=== PATIENT | female | born 1935 | race Caucasian/White ===

== ENCOUNTER → 2016-03-21 | Outpatient (CLI) | payer OTHER, BC ==
[~2016-03-21] MED LIST: ASCA500 PO; BNT20 PO; CALC600T37 PO; CETI10TA84 PO; CHOL100027 PO; EZET10TA63 PO; GABA1CAP PO; HYDR-5688 PO; LEVO1TAB35 PO; LOSA50TA6 PO; MISCCAP80 PO; MULT-506 PO; ONDA4TAB10 SL; POLY335019 PO; PRT40 PO; SENN-63 PO; ZNT150 PO
== END | disposition home or self-care (01) ==
LOC: C.LABSPEC 17:36
PROVIDERS: ATTEND Nurse Practitioner
DX: R39.9 Unspecified symptoms and signs involving the genitourinary system (principal)

== ENCOUNTER → 2016-05-09 | Outpatient (CLI) | payer OTHER, BC ==
[2016-05-09 12:35] LABS: BASO % 1.2 %; COMPLETE YES; EOS % 5.7 %; HEMATOCRIT 41.4 % (37-47); IG% 1.7 %; LYMPH ABS # 2.93 K/uL (1.2-3.4); MEAN CELL VOLUME 95.6 fL (80-100); MEAN CORPUSCULAR HEMOGLOBIN 32.6 pg (25-34); MEAN CORPUSCULAR HGB CONC 34.1 g/dl (32-36); MEAN PLATELET VOLUME 10.6 fL (7.4-10.4); MONO % 9.1 %; NEUT % 46.3 %; PLATELET COUNT 426 K/uL (130-400); RED BLOOD COUNT 4.33 M/uL (4.2-5.4); WHITE BLOOD COUNT 8.13 K/uL (4.8-10.8)
[2016-05-09 12:49] LABS: ALT/SGPT 20 U/L (12-78); AST/SGOT 22 U/L (15-37); BLOOD UREA NITROGEN 26 mg/dl (7-18); BUN/CREATININE RATIO 23.3 (10-20); CALCIUM 8.9 mg/dl (8.5-10.1); CARBON DIOXIDE 30 mmol/L (21-32); CHLORIDE 105 mmol/L (98-107); GLUCOSE 114 mg/dl (70-99); POTASSIUM 4.2 mmol/L (3.5-5.1); SODIUM 142 mmol/L (136-145)
[2016-05-09 13:03] LABS: ALB/GLOB RATIO 0.8 (0.9-2); ALKALINE PHOSPHATASE 85 U/L (45-117)
== END | disposition home or self-care (01) ==
LOC: C.LABBFT 10:31
PROVIDERS: ATTEND Nurse Practitioner
DX: N18.3 Chronic kidney disease, stage 3 (moderate) (principal); E07.9 Disorder of thyroid, unspecified

== ENCOUNTER → 2016-08-08 | Outpatient (CLI) | payer OTHER, BC ==
[2016-08-08 13:03] LABS: BASO % 0.5 %; BASO ABS # 0.03 K/uL (0-0.2); COMPLETE YES; EOS % 3.1 %; HEMATOCRIT 40.9 % (37-47); IG% 0.3 %; LYMPH % 29.9 %; LYMPH ABS # 1.81 K/uL (1.2-3.4); MEAN CELL VOLUME 96.2 fL (80-100); MEAN CORPUSCULAR HEMOGLOBIN 31.8 pg (25-34); MEAN PLATELET VOLUME 10.9 fL (7.4-10.4); MONO % 13.1 %; NEUT % 53.1 %; PLATELET COUNT 386 K/uL (130-400); RED BLOOD COUNT 4.25 M/uL (4.2-5.4); WHITE BLOOD COUNT 6.05 K/uL (4.8-10.8)
[2016-08-08 13:35] LABS: ALB/GLOB RATIO 0.7 (0.9-2); ALKALINE PHOSPHATASE 83 U/L (45-117); ALT/SGPT 21 U/L (12-78); AST/SGOT 23 U/L (15-37); BLOOD UREA NITROGEN 13 mg/dl (7-18); BUN/CREATININE RATIO 13.4 (10-20); CALCIUM 9.3 mg/dl (8.5-10.1); CARBON DIOXIDE 28 mmol/L (21-32); CHLORIDE 105 mmol/L (98-107); CREATININE 0.99 mg/dl (0.60-1.20); GLUCOSE 97 mg/dl (70-99); POTASSIUM 4.3 mmol/L (3.5-5.1); SODIUM 140 mmol/L (136-145)
--- NOTE | 2016-08-08 14:41 | DIAGNOSTIC IMAGING REPORT ---
CT SCAN OF THE ABDOMEN AND PELVIS WITH IV CONTRAST CLINICAL HISTORY: 81-year-old female with history of abdominal pain, acute right lower quadrant, diarrhea. COMPARISON STUDY: 12/30/2015. TECHNIQUE: Following the IV administration of 91 cc of Optiray 320, CT scan of the abdomen and pelvis is performed from the lung bases to the proximal femora. Images are reviewed in the axial, sagittal, and coronal planes. IV contrast was administered without complication. Automated dose control exposure was utilized. CT DOSE: 1235.82 mGy.cm FINDINGS: Lung bases: Minimal dependent opacities, likely atelectasis. Normal heart size. Aortic valve calcification. Coronary artery calcification. No pericardial or pleural effusion. Liver: Normal. No liver lesion. Mild intrahepatic and extra hepatic biliary ductal prominence likely a reservoir effect in the post cholecystectomy state. Gallbladder: Surgically absent. Spleen: Absent. Small focal calcification adjacent to the pancreatic tail may represent postsurgical change. Pancreas: Mild atrophic parenchyma. Prominence of the pancreatic duct in the pancreatic head, where it measures 5-7 mm in diameter. No focal obstructing mass. Adrenal glands: Normal. Kidneys: Few subcentimeter hypodensities likely simple cysts. No hydronephrosis. Abdominal vasculature: Atherosclerosis of the normal caliber abdominal aorta. IVC patent. Bowel: Oral contrast was administered which transits to the left lower quadrant end colostomy. Feng's pouch is nondistended. Diverticulosis of the descending colon. Large midline ventral hernia containing transverse colon and small bowel along with the mesentery. No paracolonic inflammatory change, fluid within the hernia sac, or evidence of obstruction. Mild bowel wall thickening of the transverse colon, nonspecific. Normal appendix. Proximal small bowel is mildly distended with gas though nonobstructed. Peritoneum: No free fluid or gas. Lymphadenopathy: None. Bladder: Nondistended and incompletely evaluated. Pelvic organs: Uterus and ovaries grossly normal. Abdominal wall: Atrophy of the rectus abdominis. Large midline ventral hernia containing small and large bowel in the midline as well as a prominent parastomal hernia in the left lower quadrant. The midline ventral hernia has a wide neck. The parastomal hernia has a more narrow neck measuring 3.5 cm in diameter in comparison to the hernia sac diameter of 11.3 cm. Musculoskeletal: Degenerative changes of the lumbar spine. IMPRESSION: 1. Mild colonic wall thickening of the transverse colon suggested could suggest colitis, possibly infectious. No evidence of appendicitis or other evidence of acute intra-abdominal pathology. 2. Large midline ventral hernia and parastomal hernia without evidence of incarceration. 3. Pancreatic ductal dilatation limited to the pancreatic head without evidence of a focal obstructing mass. This can be seen in the setting of benign stricture among other etiologies. Electronically signed by: Austin Bowles 08/08/2016 2:39 PM Dictated Date/Time: 08/08/2016 2:21 PM
[2016-08-18 08:39] LABS: O&P SOURCE STOOL
== END | disposition home or self-care (01) ==
LOC: C.CTS 11:26
PROVIDERS: ATTEND Nurse Practitioner
DX: R19.7 Diarrhea, unspecified (principal); R10.31 Right lower quadrant pain

== ENCOUNTER 2016-08-22 14:44 | Emergency (ER) | payer OTHER, BC ==
[~2016-08-22] VITALS: Ht 152.4 cm; Wt 86.5 kg
[~2016-08-22 14:44] MED LIST changes: -BNT20 PO; -EZET10TA63 PO; -HYDR-5688 PO; -LEVO1TAB35 PO; -LOSA50TA6 PO; -ONDA4TAB10 SL; -POLY335019 PO; -ZNT150 PO
[2016-08-22 14:48] VITALS: Ht 152.4 cm; Wt 86.5 kg
[2016-08-22] MEDS ORDERED: SODIUM CHLORIDE 0.9% 250ML 250 ML IV STA (15:23)
[2016-08-22] MEDS ORDERED: ONDANSETRON INJ 2 MG/ML 2 ML VIAL IV STA (15:23)
[2016-08-22 16:08] LABS: BASO % 0.9 %; BASO ABS # 0.07 K/uL (0-0.2); COMPLETE YES; EOS % 1.6 %; IG% 0.3 %; LYMPH % 30.5 %; LYMPH ABS # 2.43 K/uL (1.2-3.4); MEAN CELL VOLUME 94.3 fL (80-100); MEAN CORPUSCULAR HEMOGLOBIN 30.9 pg (25-34); MEAN CORPUSCULAR HGB CONC 32.8 g/dl (32-36); MONO % 12.1 %; NEUT % 54.6 %; PLATELET COUNT 531 K/uL (130-400); RED BLOOD COUNT 4.24 M/uL (4.2-5.4); WHITE BLOOD COUNT 7.96 K/uL (4.8-10.8)
[2016-08-22 16:24] LABS: ALT/SGPT 19 U/L (12-78); AST/SGOT 21 U/L (15-37); BLOOD UREA NITROGEN 19 mg/dl (7-18); BUN/CREATININE RATIO 17.6 (10-20); CALCIUM 9.2 mg/dl (8.5-10.1); CARBON DIOXIDE 29 mmol/L (21-32); CHLORIDE 106 mmol/L (98-107); GLUCOSE 120 mg/dl (70-99); POTASSIUM 4.4 mmol/L (3.5-5.1); SODIUM 140 mmol/L (136-145)
[2016-08-22] MEDS ORDERED: HYDR-5688 PO (16:25)
[2016-08-22 16:27] LABS: ALKALINE PHOSPHATASE 82 U/L (45-117)
[2016-08-22] MEDS ORDERED: LOSA50TA6 PO (16:56)
[2016-08-22] MEDS ORDERED: POLY335019 PO (16:56)
[2016-08-22 17:08] LABS: URINE APPEARANCE CLEAR (CLEAR); URINE BILIRUBIN NEG (NEG); URINE COLOR YELLOW; URINE NITRITE NEG (NEG); URINE SPECIFIC GRAVITY 1.011 (1.000-1.030); UROBILINOGEN NEG (NEG)
[2016-08-22] MEDS ORDERED: OPTIRAY 320 IV PRN (17:15)
[2016-08-22 17:26] LABS: MANUAL MICROSCOPIC REQUIRED? NO; REVIEW REQ? NO
--- NOTE | 2016-08-22 18:03 | DIAGNOSTIC IMAGING REPORT ---
ABD/PELVIS IV AND ORAL CONT CT DOSE: 935.79 mGy.cm HISTORY: Pain eval for transverse colitis TECHNIQUE: Multiaxial CT images of the abdomen and pelvis were performed following the use of intravenous and oral contrast. COMPARISON STUDY: 08/08/2016 FINDINGS: Lung bases show minimal dependent atelectasis. Liver is uniform. Mild chronic biliary ductal distention is present and is unchanged. Ventral hernia containing fat as well as transverse colon. Wall thickening on the prior study is not appreciated currently. Kidneys enhance uniformly. There is no evidence for hydronephrosis. Bowel pattern is considered nonobstructive. The left sided ostomy is again noted and appears similar. No evidence for abnormal mass collection or bowel obstructive change. IMPRESSION: Improved exam from the prior study. No evidence for colonic wall thickening at the current time. Stable postoperative change. Stable bowel containing ventral hernia with no obstructive characteristics The above report was generated using voice recognition software. It may contain grammatical, syntax or spelling errors. Electronically signed by: Kurt Rosas M.D. 08/22/2016 6:01 PM Dictated Date/Time: 08/22/2016 5:55 PM
[2016-08-22] MEDS ORDERED: ONDA4TAB10 SL (18:22)
[2016-08-22 18:42] VITALS: BP 157/89; PULSE 79; TEMP 36.7; O2SAT 97
--- NOTE | 2016-08-22 18:52 | EMERGENCY ROOM VISIT NOTE ---
History Report prepared by Amisha: Spencer Torrez Under the Supervision of: Dr. Jai Quezada M.D. First contact with patient: 15:09 Chief Complaint: ABDOMINAL PAIN Stated Complaint: UPSET STOMACH, INTESTIONAL PAIN History of Present Illness The patient is a 81 year old female who presents to the Emergency Room with complaints of worsening epigastric abdominal pain beginning 14 days ago. The patient states that she was seen by her doctor and had a CT scan performed. She reports that she was told the top of her colon was inflamed. The patient notes that she seemed to be getting better and went back to see her doctor. She states that she was told to see a propeller engineer and was told that their office was going to schedule it. The patient reports that she called her doctor today to see when her GI appointment was. She notes that she was told it was never scheduled, and the earliest she could get in is late September. The patient states that she came to the ED because she has constant nausea, diarrhea, a decreased appetite, and intermittent fevers of 100 degrees F in addition to her abdominal pain. She denies vomiting and changes in urinary frequency. The patient states reports that she has a colostomy and it has been producing a red , mucous-like fluid the entire time she has had her pain. She notes that she has a history of diverticulitis and so she has a partial colectomy. The patient states that she was put on Cipro and Flagyl on August 08 and took it for 6 days before quitting. It made her nauseated. She denies being put on any other antibiotics prior to the Cipro and Flagyl. The patient notes that she had soup for lunch. Source of History: patient Onset: 14 days ago Position: abdomen (epigastric) Timing: worsening Associated Symptoms: + fevers (low-grade temperature of 100), + nausea, + hematochezia, + diarrhea, No vomiting, No urinary symptoms Note: Associated symptoms: decreased appetite Review of Systems See HPI for pertinent positives & negatives. A total of 10 systems reviewed and were otherwise negative. Past Medical & Surgical Medical Problems: (1) Breast cancer (2) Constipation (3) Diverticulitis (4) Gastroenteritis (5) HEREDITARY SPHEROCYTOSIS (6) Hernia (7) History of gallbladder surgery (8) Hypertensive crisis (9) Low back pain (10) Nausea & vomiting (11) Pancreatitis (12) Perforated bowel (13) Right TKR 07/2010 Surgical Problems: (1) Colostomy in place (2) History of section (3) History of lumpectomy (4) History of splenectomy Family History Hypertension Social History Smoking Status: Never Smoker Alcohol Use: none Drug Use: none Marital Status: Housing Status: lives with family Occupation Status: retired Current/Historical Medications Scheduled Ascorbic Acid (Vitamin C), 500 MG PO DAILY Calcium (Calcium), 600 MG PO Q2D Cetirizine (Zyrtec), 5 MG PO QPM Cholecalciferol (Vitamin D 1000 Unit), 2,000 INTER.UNIT PO QPM Ezetimibe (Zetia), 10 MG PO QPM Losartan Potassium (Cozaar), 50 MG PO DAILY Multivitamin (Multivitamin), 1 TAB PO DAILY Ondasetron Odt (Zofran Odt), 4 MG SL Q6H Probiotic Product (Probiotic), 1 CAP PO QPM Scheduled PRN Hydrocodone/Acetaminophen 5MG/325MG ([place] 5MG/325MG), 0.5 TABLET PO HS PRN for Pain Polyethylene Glycol 3350 (Miralax), 17 GM PO DAILY PRN for Constipation Allergies Coded Allergies: Vancomycin (Verified Allergy, Intermediate, rash, 12/30/15) Clavulanic Acid (Verified Allergy, Unknown, 12/30/15) Codeine (Verified Allergy, Unknown, 12/30/15) Lisinopril (Verified Adverse Reaction, Intermediate, dizziness, 12/30/15) Statins (Verified Adverse Reaction, Intermediate, , elevated liver enzymes , 12/30/15) Physical Exam Vital Signs Date Time Temp Pulse Resp B/P (MAP) Pulse Ox O2 Delivery O2 Flow Rate FiO2 08/22/16 18:42 36.7 79 20 157/89 97 08/22/16 14:48 36.7 79 20 157/89 97 Room Air Physical Exam Constitutional: Vital signs reviewed. Eyes: Pupils are equal round reactive to light. Conjunctiva are noninjected. ENT: Pharynx is clear without erythema or exudate. Mucous membranes are moist. Neck supple without meningeal signs. Respiratory: Clear to auscultation bilaterally. Breath sounds are equal bilaterally. Cardiovascular: Regular rate and rhythm. No rubs or gallops. GI: Soft and nondistended. Epigastric tenderness, no guarding. Bowel sounds are present. Colostomy present in the left lower quadrant, no blood in colostomy bag. Musculoskeletal: No peripheral edema. Integumentary: No cyanosis. Neurological: The patient is awake and alert. No focal deficits. Psychiatric: Normal affect. Medical Decision & Procedures ER Provider Diagnostic Interpretation: CT results as stated below per my review and radiologist interpretation. ABD/PELVIS IV AND ORAL CONT CT DOSE: 935.79 mGy.cm HISTORY: Pain eval for transverse colitis TECHNIQUE: Multiaxial CT images of the abdomen and pelvis were performed following the use of intravenous and oral contrast. COMPARISON STUDY: 08/08/2016 FINDINGS: Lung bases show minimal dependent atelectasis. Liver is uniform. Mild chronic biliary ductal distention is present and is unchanged. Ventral hernia containing fat as well as transverse colon. Wall thickening on the prior study is not appreciated currently. Kidneys enhance uniformly. There is no evidence for hydronephrosis. Bowel pattern is considered nonobstructive. The left sided ostomy is again noted and appears similar. No evidence for abnormal mass collection or bowel obstructive change. IMPRESSION: Improved exam from the prior study. No evidence for colonic wall thickening at the current time. Stable postoperative change. Stable bowel containing ventral hernia with no obstructive characteristics The above report was generated using voice recognition software. It may contain grammatical, syntax or spelling errors. Electronically signed by: Kurt Rosas M.D. 08/22/2016 6:01 PM Dictated Date/Time: 08/22/2016 5:55 PM Laboratory Results 08/22/16 15:50 Red Blood Count 4.24, Mean Corpuscular Volume 94.3, Mean Corpuscular Hemoglobin 30.9, Mean Corpuscular Hemoglobin Concent 32.8, Mean Platelet Volume 9.0, Neutrophils (%) (Auto) 54.6, Lymphocytes (%) (Auto) 30.5, Monocytes (%) (Auto) 12.1, Eosinophils (%) (Auto) 1.6, Basophils (%) (Auto) 0.9, Neutrophils # (Auto ) 4.35, Lymphocytes # (Auto) 2.43, Monocytes # (Auto) 0.96, Eosinophils # (Auto ) 0.13, Basophils # (Auto) 0.07 08/22/16 15:50 Test 08/22/16 15:50 08/22/16 16:30 White Blood Count 7.96 K/uL (4.8-10.8) Red Blood Count 4.24 M/uL (4.2-5.4) Hemoglobin 13.1 g/dL (12.0-16.0) Hematocrit 40.0 % (37-47) Mean Corpuscular Volume 94.3 fL (80-100) Mean Corpuscular Hemoglobin 30.9 pg (25-34) Mean Corpuscular Hemoglobin Concent 32.8 g/dl (32-36) Platelet Count 531 K/uL (130-400) Mean Platelet Volume 9.0 fL (7.4-10.4) Neutrophils (%) (Auto) 54.6 % Lymphocytes (%) (Auto) 30.5 % Monocytes (%) (Auto) 12.1 % Eosinophils (%) (Auto) 1.6 % Basophils (%) (Auto) 0.9 % Neutrophils # (Auto) 4.35 K/uL (1.4-6.5) Lymphocytes # (Auto) 2.43 K/uL (1.2-3.4) Monocytes # (Auto) 0.96 K/uL (0.11-0.59) Eosinophils # (Auto) 0.13 K/uL (0-0.5) Basophils # (Auto) 0.07 K/uL (0-0.2) RDW Standard Deviation 47.0 fL (36.4-46.3) RDW Coefficient of Variation 13.6 % (11.5-14.5) Immature Granulocyte % (Auto) 0.3 % Immature Granulocyte # (Auto) 0.02 K/uL (0.00-0.02) Anion Gap 5.0 mmol/L (3-11) Est Creatinine Clear Calc Drug Dose 40.5 ml/min Estimated GFR () 55.3 Estimated GFR (Non- 47.7 BUN/Creatinine Ratio 17.6 (10-20) Calcium Level 9.2 mg/dl (8.5-10.1) Total Bilirubin 0.4 mg/dl (0.2-1) Direct Bilirubin < 0.1 mg/dl (0-0.2) Aspartate Amino Transf (AST/SGOT) 21 U/L (15-37) Alanine Aminotransferase (ALT/SGPT) 19 U/L (12-78) Alkaline Phosphatase 82 U/L (45-117) Total Protein 7.3 gm/dl (6.4-8.2) Albumin 3.2 gm/dl (3.4-5.0) Lipase 286 U/L (73-393) Urine Color YELLOW Urine Appearance CLEAR (CLEAR) Urine pH 7.0 (4.5-7.5) Urine Specific [place] 1.011 (1.000-1.030) Urine Protein NEG (NEG) Urine Glucose (UA) NEG (NEG) Urine Ketones NEG (NEG) Urine Occult Blood NEG (NEG) Urine Nitrite NEG (NEG) Urine Bilirubin NEG (NEG) Urine Urobilinogen NEG (NEG) Urine Leukocyte Esterase NEG (NEG) Laboratory results as reviewed by me. Medications Administered Medications (Trade) Dose Ordered Sig/Jonas Route Start Time Stop Time Status Last Admin Dose Admin Ondansetron HCl (Zofran Inj) 4 mg NOW STAT IV 08/22/16 15:23 08/22/16 15:25 DC 08/22/16 16:18 4 MG Sodium Chloride 250 ml @ 999 mls/hr Q16M STAT IV 08/22/16 15:23 08/22/16 15:38 DC 08/22/16 16:17 999 MLS/HR ED Course 1515: The patient was evaluated in room B06. A complete history and physical exam was performed. 1523: Ordered Sodium Chloride 250 ml @ 999 mls/hr IV, Zofran Inj 4 mg IV 1655: I discussed the patient's test results, and she is waiting for her CT scan. 1736: I reevaluated the patient, and she is still not able to give a colostomy output. 1812: I reevaluated the patient, and I discussed her test results. The patient verbalized understanding of the discharge instructions. The piano case and bench assembler is trying to get the patient and earlier GI appointment. Medical Decision This is a 81-year-old female who presents with abdominal pain and bloody bowel movements. Differential diagnosis includes colitis, C. difficile, dehydration, pancreatitis, electrolyte abnormality. I did perform a limited focused review of portions of the patient's old chart on the electronic medical record. The patient has had a CT Abdomen/Pelvis on August 08 that showed mild colonic wall thickening of the transverse colon, large ventral hernia, and a pancreatic ductal dilatation. She also had stool studies completed that were negative for C -Diff, Ova, and parasites, and a negative stool culture. Medication Reconciliation: I attest that I have personally reviewed the patient' s current medication list. Blood Pressure Screening: Patient was found to have an elevated blood pressure and was referred to their primary doctor for recheck and further treatment. I did evaluate the patient as noted above. IV access was established. I did treat patient with IV Zofran and normal saline IV. I did order and personally review the patient's urinalysis as described above. I did order and review the patient's blood work as noted in the electronic medical record. Her white blood cell count is not elevated. Urinalysis was unremarkable. I did order a CT of the abdomen and pelvis. I did review the images myself as well as the radiology report as described above. The CT does not show any acute process. The transverse colitis is now resolved. The patient was having a hard time giving us any colostomy output. She did give us a sample toward the end of the stay but it was mostly watery with contrast. There was sent for stool cultures and C. difficile antigen testing and we will call her should these results be positive. The piano case and bench assembler will assist the patient in obtaining an earlier appointment with gastroenterology. I did discuss the test results with her. She states she feels much better with the Zofran. She was given a prescription for Zofran and discharged in good condition. Impression Primary Impression: Upper abdominal pain Additional Impression: Diarrhea Scribe Attestation The scribe's documentation has been prepared under my direct and personally reviewed by me in its entirety. I confirm that the note above accurately reflects all work, treatment, procedures, and medical decision making performed by me. Departure Information Dispostion Home / Self-Care Prescriptions Ondasetron Odt (ZOFRAN ODT) 4 Mg Tab 4 MG SL Q6H for Nausea, #10 TAB Prov: Jai Quezada M.D. 08/22/16 Referrals Madai Leonard, C.R.N.P. (PCP) Forms HOME CARE DOCUMENTATION FORM, IMPORTANT VISIT INFORMATION Patient Instructions ED Abdominal Pain Unkn Cause, My [facility] Additional Instructions You have been examined and treated today on an emergency basis only. This is not a substitute for, or an effort to provide, complete comprehensive medical care. It is impossible to recognize and treat all injuries or illnesses in a single emergency department visit. It is therefore important that you follow up closely with your physician and gastroenterology. The piano case and bench assembler will attempt to help you with the appointment tomorrow during business hours. Return if you develop fever over 101, vomiting, or any other concerning symptoms. Problem Qualifiers Additional Impression: Diarrhea Diarrhea type: unspecified type Qualified Codes: R19.7 - Diarrhea, unspecified
[2016-08-22] MEDS ORDERED: EZET10TA63 PO (22:19)
== END 2016-08-22 18:42 | disposition home or self-care (01) ==
LOC: C.EDB 14:45
DX: R10.13 Epigastric pain (principal); R19.7 Diarrhea, unspecified; R11.0 Nausea; Z85.3 Personal history of malignant neoplasm of breast; Z96.651 Presence of right artificial knee joint; Z93.3 Colostomy status

== ENCOUNTER 2016-08-28 11:34 | Inpatient (IN) | payer OTHER, BC ==
[~2016-08-28] VITALS: Ht 152.4 cm; Wt 86.5 kg
[~2016-08-28 11:34] MED LIST changes: +EZET10TA63 PO; -GABA1CAP PO; +HYDR-5688 PO; +LOSA50TA6 PO; +ONDA4TAB10 SL; +POLY335019 PO; -PRT40 PO; -SENN-63 PO
[2016-08-28] MEDS ORDERED: SODIUM CHLORIDE 0.9% 1000ML 1,000 ML IV STA (11:57)
--- NOTE | 2016-08-28 11:59 | EMERGENCY ROOM VISIT NOTE ---
History Report prepared by Amisha: Dana Cruz Under the Supervision of: Dr. Jese Mcelroy M.D. First contact with patient: 11:43 Chief Complaint: BLEEDING Stated Complaint: BLEEDING FROM COLOSTOMY Nursing Triage Summary: Pt reports she has colostomy and noticed blood in the bag Was seen here "the other day" for same History of Present Illness The patient is a 81 year old female who presents to the Emergency Room with complaints of an episode bleeding from her colostomy bag beginning today. The patient states that she was seen here 5 days ago for abdominal pain and had a CT scan, blood work, and stool sample. She reports that she has a colostomy bag and today she noticed that there was blood in it. The patient reports that she has a GI appointment on the . She complains of lower abdominal pain that is worsening and nausea. She denies any vomiting. The patient notes that she had a colonoscopy recently and was told to use an enema that she never used. Following the colonoscopy she notes that she had surgery on her eyes and this pain started shortly after that. Source of History: patient Onset: today Position: other (colostomy) Quality: other (blood) Timing: other (episode) Associated Symptoms: + nausea, + abdominal pain, No vomiting Review of Systems See HPI for pertinent positives & negatives. A total of 10 systems reviewed and were otherwise negative. 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 (2) History of section (3) History of lumpectomy (4) History of splenectomy Family History Hypertension Social History Smoking Status: Never Smoker Alcohol Use: none Drug Use: none Marital Status: Housing Status: lives with family Occupation Status: retired Current/Historical Medications Scheduled Ascorbic Acid (Vitamin C), 500 MG PO DAILY Calcium (Calcium), 600 MG PO Q2D Cetirizine (Zyrtec), 5 MG PO QPM Cholecalciferol (Vitamin D 1000 Unit), 2,000 INTER.UNIT PO QPM Ezetimibe (Zetia), 10 MG PO QPM Losartan Potassium (Cozaar), 50 MG PO DAILY Multivitamin (Multivitamin), 1 TAB PO DAILY Ondasetron Odt (Zofran Odt), 4 MG SL Q6H Probiotic Product (Probiotic), 1 CAP PO QPM Scheduled PRN Hydrocodone/Acetaminophen 5MG/325MG (Lorton 5MG/325MG), 0.5 TABLET PO HS PRN for Pain Polyethylene Glycol 3350 (Miralax), 17 GM PO DAILY PRN for Constipation Allergies Coded Allergies: Vancomycin (Verified Allergy, Intermediate, rash, 08/28/16) Amoxicillin (Verified Allergy, Unknown, bad reaction/glands swollen puffed up, 08/28/16) Clavulanic Acid (Verified Allergy, Unknown, 08/28/16) Codeine (Verified Allergy, Unknown, 08/28/16) Physical Exam Vital Signs Date Time Temp Pulse Resp B/P (MAP) Pulse Ox O2 Delivery O2 Flow Rate FiO2 08/28/16 14:00 97 Room Air 08/28/16 13:14 74 08/28/16 13:13 74 18 196/100 97 Room Air 08/28/16 11:41 36.7 69 18 169/98 95 Room Air Physical Exam GENERAL: Patient is a healthy-appearing well-nourished [] HEAD: Normocephalic atraumatic EYES: Ocular movements intact pupils equal and react to light OROPHARYNX mucous membranes are moist no exudates present no erythema or edema present NECK: Supple no nuchal rigidity CHEST: Good equal expansion LUNGS: Clear and equal to auscultation CARDIAC: Normal S1 and S2 ABDOMEN: Soft, no guarding. Minimally tender in the RLQ. BACK: No CVA tenderness EXTREMITIES: No pain upon palpation normal muscle strength in all groups no clubbing cyanosis or edema NEURO: Patient is following commands and answering questions appropriately. Alert and oriented x3 Cranial Nerves 2-12 grossly intact Medical Decision & Procedures ER Provider Diagnostic Interpretation: CT results as stated below per my review and radiologist interpretation: CT ABD/PELVIS IV CONTRAST ONLY FINDINGS: Lower chest: There is by basilar subpleural reticulation, likely atelectatic. Liver: No focal hepatic masses are visualized. There are mildly prominent central intrahepatic ducts, unchanged the prior study Gallbladder: Surgically absent Spleen: Not visualized Pancreas: No masses are visualized. There is stable mild dilatation of the pancreatic duct within the head of the pancreas Adrenal glands: Unremarkable. Kidneys: There is symmetric renal cortical enhancement. The kidneys are normal in size without hydronephrosis. Bowel: Postsurgical changes are visualized within the colon. 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 There is a left lower quadrant colostomy. There is colonic diverticulosis. No acute peridiverticular inflammatory changes are visualized. There is a ventral hernia containing colonic loops. There is no evidence of acute appendicitis. Peritoneum: There is no intraperitoneal free air or abdominal ascites. Vasculature: The abdominal aorta is normal in course and caliber. Adenopathy: There is bladder wall thickening with mild infiltration of fat surrounding the bladder. Pelvic viscera: The bladder, and pelvic viscera are unremarkable. Skeletal structures: No destructive osseous lesions are seen. IMPRESSION: 1. Postsurgical changes with a left lower quadrant ostomy. There is a small parastomal hernia 2. Ventral hernia containing colon. 3. Diverticulosis. No evidence of acute diverticulitis 4. No evidence of bowel obstruction. No evidence of free air 5. Bladder wall thickening with mild infiltration of the surrounding fat. Correlation with urinalysis is recommended to exclude a cystitis 6. Stable mild dilatation of the pancreatic duct within the head of the pancreas Electronically signed by: Bc Garcia M.D. 08/28/2016 1:11 PM Dictated Date/Time: 08/28/2016 1:03 PM Laboratory Results 08/28/16 12:35 Red Blood Count 4.15, Mean Corpuscular Volume 94.2, Mean Corpuscular Hemoglobin 31.1, Mean Corpuscular Hemoglobin Concent 33.0, Mean Platelet Volume 9.1, Neutrophils (%) (Auto) 45.9, Lymphocytes (%) (Auto) 34.4, Monocytes (%) (Auto) 15.6, Eosinophils (%) (Auto) 2.3, Basophils (%) (Auto) 0.9, Neutrophils # (Auto ) 2.99, Lymphocytes # (Auto) 2.24, Monocytes # (Auto) 1.02, Eosinophils # (Auto ) 0.15, Basophils # (Auto) 0.06 08/28/16 12:35 Test 08/28/16 11:45 08/28/16 12:10 08/28/16 12:35 08/28/16 12:44 Urine Color YELLOW Urine Appearance CLEAR (CLEAR) Urine pH 7.0 (4.5-7.5) Urine Specific Oley 1.017 (1.000-1.030) Urine Protein NEG (NEG) Urine Glucose (UA) NEG (NEG) Urine Ketones NEG (NEG) Urine Occult Blood NEG (NEG) Urine Nitrite POS (NEG) Urine Bilirubin NEG (NEG) Urine Urobilinogen NEG (NEG) Urine Leukocyte Esterase SMALL (NEG) Urine WBC (Auto) 10-30 /hpf (0-5) Urine RBC (Auto) 0-4 /hpf (0-4) Urine Hyaline Casts (Auto) 1-5 /lpf (0-5) Urine Epithelial Cells (Auto) >30 /lpf (0-5) Urine Bacteria (Auto) 1+ (NEG) Urine Renal Epithelial Cells /lpf (0-5) White Blood Count 6.52 K/uL (4.8-10.8) Red Blood Count 4.15 M/uL (4.2-5.4) Hemoglobin 12.9 g/dL (12.0-16.0) Hematocrit 39.1 % (37-47) Mean Corpuscular Volume 94.2 fL (80-100) Mean Corpuscular Hemoglobin 31.1 pg (25-34) Mean Corpuscular Hemoglobin Concent 33.0 g/dl (32-36) Platelet Count 567 K/uL (130-400) Mean Platelet Volume 9.1 fL (7.4-10.4) Neutrophils (%) (Auto) 45.9 % Lymphocytes (%) (Auto) 34.4 % Monocytes (%) (Auto) 15.6 % Eosinophils (%) (Auto) 2.3 % Basophils (%) (Auto) 0.9 % Neutrophils # (Auto) 2.99 K/uL (1.4-6.5) Lymphocytes # (Auto) 2.24 K/uL (1.2-3.4) Monocytes # (Auto) 1.02 K/uL (0.11-0.59) Eosinophils # (Auto) 0.15 K/uL (0-0.5) Basophils # (Auto) 0.06 K/uL (0-0.2) RDW Standard Deviation 47.3 fL (36.4-46.3) RDW Coefficient of Variation 13.8 % (11.5-14.5) Immature Granulocyte % (Auto) 0.9 % Immature Granulocyte # (Auto) 0.06 K/uL (0.00-0.02) Estimated GFR () 55.3 Estimated GFR (Non- 47.7 BUN/Creatinine Ratio 15.6 (10-20) Calcium Level 9.2 mg/dl (8.5-10.1) Total Bilirubin 0.4 mg/dl (0.2-1) Direct Bilirubin < 0.1 mg/dl (0-0.2) Aspartate Amino Transf (AST/SGOT) 23 U/L (15-37) Alanine Aminotransferase (ALT/SGPT) 19 U/L (12-78) Alkaline Phosphatase 87 U/L (45-117) Total Protein 7.1 gm/dl (6.4-8.2) Albumin 3.1 gm/dl (3.4-5.0) Lipase 279 U/L (73-393) Bedside Hemoglobin 12.2 g/dl (12.0-16.0) Bedside Hematocrit 36 % (37-47) Bedside Sodium 139 mEq/L (135-144) Bedside Potassium 4.4 mEq/L (3.3-5.0) Bedside Chloride 101 mEq/L (101-112) Bedside Total CO2 28 mEq/l (24-31) Anion Gap 15.0 mmol/L (16-25) Bedside Blood Urea Nitrogen 17 mg/dl (7-18) Bedside Creatinine 1.1 mg/dl (0.6-1.3) Bedside Glucose (other) 108 mg/dl (70-99) Bedside Ionized Calcium (Dylan) 1.17 mmol/l (1.12-1.32) Date/Time Source Procedure Growth Status 08/28/16 11:45 Stool C.difficile Toxin B Gene (PCR) - Final No C. difficile toxin B gene detected Complete Labs reviewed by ED physician. Medications Administered Medications (Trade) Dose Ordered Sig/Jonas Route Start Time Stop Time Status Last Admin Dose Admin Sodium Chloride 1,000 ml @ 999 mls/hr Q1H1M STAT IV 08/28/16 11:57 08/28/16 12:57 DC 08/28/16 11:57 999 MLS/HR Hydromorphone HCl (Dilaudid Inj) 1 mg NOW STAT IV 08/28/16 12:49 08/28/16 12:50 DC 08/28/16 13:04 1 MG Metoclopramide HCl (Reglan Inj) 10 mg NOW STAT IV 08/28/16 12:49 08/28/16 12:50 DC 08/28/16 13:05 10 MG ED Course 1143: Past medical records reviewed. The patient was evaluated in room C1. A complete history and physical examination was performed. 1157: Sodium Chloride 1000 ml @ 999 mls/hr IV. 1249: Reglan Inj 10mg IV, Dilaudid Inj 1mg IV. 1334: I discussed the patient's case with Dr. Hein, she has agreed to evaluate the patient for further management and care. 1349: Upon reexamination the patient is doing well. I discussed results and treatment plan with the patient. she verbalizes agreement and understanding. I spoke with Dr. Hein from the [facility] Hospitalist Service. The patient will be evaluated for further management. Medical Decision Differential diagnosis: Etiologies such as appendicitis, diverticulitis, PUD, biliary pathology, UTI, pancreatitis, obstruction, mesenteric ischemia, aortic pathology, infections, inflammatory bowel disease, renal colic, as well as others were entertained. This is a 81-year-old female who presents emergency department complaining of blood out of her ostomy. This the patient's second visit to the emergency department for the same problem. We attempted to give the patient in with gastroenterology however the patient is not getting in until the end of the month. I will note that the patient's hemoglobin has dropped. Stool sample was obtained and sent for C. difficile as well as culture. The patient was sent for CAT scan abdomen and pelvis that she is complaining right lower quadrant abdominal pain however this did not show any evidence of acute process. I did discuss the case with the hospitalist service who agreed to admit the patient. Patient was in agreement with the treatment plan. Medication Reconcilliation Current Medication List: was personally reviewed by me Blood Pressure Screening Patient's blood pressure: Elevated blood pressure Blood pressure disposition: Referred to PCP Consults Time Called: 1330 Consulting Physician: My Hein Returned Call: [phone] I discussed the patient's case with Dr. Hein, she has agreed to evaluate the patient for further management and care. Impression Primary Impression: GI bleed Scribe Attestation The scribe's documentation has been prepared under my direction and personally reviewed by me in its entirety. I confirm that the note above accurately reflects all work, treatment, procedures, and medical decision making performed by me. Departure Information Dispostion Being Evaluated By Hospitalist Referrals Madai Leonard C.R.N.P. (PCP) Patient Instructions My [facility] Problem Qualifiers Primary Impression: GI bleed GI bleed type/associated pathology: unspecified gastrointestinal hemorrhage type Qualified Codes: K92.2 - Gastrointestinal hemorrhage, unspecified
[2016-08-28] MEDS ORDERED: OPTIRAY 320 IV PRN (12:15)
[2016-08-28 12:49] LABS: URINE APPEARANCE CLEAR (CLEAR); URINE BILIRUBIN NEG (NEG); URINE COLOR YELLOW; URINE EPITHELIAL CELL AUTO >30 /lpf (0-5); URINE NITRITE POS (NEG); URINE SPECIFIC GRAVITY 1.017 (1.000-1.030); UROBILINOGEN NEG (NEG)
[2016-08-28] MEDS ORDERED: METOCLOPRAMIDE HCL INJ 5 MG/ML 2 ML VIAL IV STA (12:49)
[2016-08-28] MEDS ORDERED: HYDROmorphone INJ 1 MG/ML SYR IV STA (12:49)
[2016-08-28 12:54] LABS: BASO % 0.9 %; BASO ABS # 0.06 K/uL (0-0.2); COMPLETE YES; EOS % 2.3 %; HEMATOCRIT 39.1 % (37-47); IG% 0.9 %; LYMPH % 34.4 %; LYMPH ABS # 2.24 K/uL (1.2-3.4); MEAN CELL VOLUME 94.2 fL (80-100); MEAN CORPUSCULAR HEMOGLOBIN 31.1 pg (25-34); MEAN PLATELET VOLUME 9.1 fL (7.4-10.4); MONO % 15.6 %; NEUT % 45.9 %; PLATELET COUNT 567 K/uL (130-400); RED BLOOD COUNT 4.15 M/uL (4.2-5.4); WHITE BLOOD COUNT 6.52 K/uL (4.8-10.8)
[2016-08-28 12:56] LABS: ISTAT CREATININE 1.1 mg/dl (0.6-1.3); ISTAT HEMOGLOBIN 12.2 g/dl (12.0-16.0); ISTAT IONIZED CALCIUM 1.17 mmol/l (1.12-1.32)
[2016-08-28 12:56] LABS: MANUAL MICROSCOPIC REQUIRED? NO; REVIEW REQ? YES
--- NOTE | 2016-08-28 13:12 | DIAGNOSTIC IMAGING REPORT ---
CT ABD/PELVIS IV CONTRAST ONLY CLINICAL HISTORY: Right lower quadrant abdominal pain. Bleeding from colostomy. COMPARISON STUDY: 08/22/2016 TECHNIQUE: Following the IV administration of 94 mL of Optiray-320, CT scan of the abdomen and pelvis was performed from the lung bases to the proximal femurs. Images are reviewed in the axial, sagittal, and coronal planes. IV contrast was administered without complication. A dose lowering technique was utilized adhering to the principles of ALARA. CT DOSE: 827.29 mGy.cm FINDINGS: Lower chest: There is by basilar subpleural reticulation, likely atelectatic. Liver: No focal hepatic masses are visualized. There are mildly prominent central intrahepatic ducts, unchanged the prior study Gallbladder: Surgically absent Spleen: Not visualized Pancreas: No masses are visualized. There is stable mild dilatation of the pancreatic duct within the head of the pancreas Adrenal glands: Unremarkable. Kidneys: There is symmetric renal cortical enhancement. The kidneys are normal in size without hydronephrosis. Bowel: Postsurgical changes are visualized within the colon. 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 There is a left lower quadrant colostomy. There is colonic diverticulosis. No acute peridiverticular inflammatory changes are visualized. There is a ventral hernia containing colonic loops. There is no evidence of acute appendicitis. Peritoneum: There is no intraperitoneal free air or abdominal ascites. Vasculature: The abdominal aorta is normal in course and caliber. Adenopathy: There is bladder wall thickening with mild infiltration of fat surrounding the bladder. Pelvic viscera: The bladder, and pelvic viscera are unremarkable. Skeletal structures: No destructive osseous lesions are seen. IMPRESSION: 1. Postsurgical changes with a left lower quadrant ostomy. There is a small parastomal hernia 2. Ventral hernia containing colon. 3. Diverticulosis. No evidence of acute diverticulitis 4. No evidence of bowel obstruction. No evidence of free air 5. Bladder wall thickening with mild infiltration of the surrounding fat. Correlation with urinalysis is recommended to exclude a cystitis 6. Stable mild dilatation of the pancreatic duct within the head of the pancreas Electronically signed by: Bc Garcia M.D. 08/28/2016 1:11 PM Dictated Date/Time: 08/28/2016 1:03 PM
[2016-08-28 13:14] LABS: ALT/SGPT 19 U/L (12-78); AST/SGOT 23 U/L (15-37); BLOOD UREA NITROGEN 17 mg/dl (7-18); BUN/CREATININE RATIO 15.6 (10-20); CALCIUM 9.2 mg/dl (8.5-10.1); CARBON DIOXIDE 30 mmol/L (21-32); CHLORIDE 105 mmol/L (98-107); GLUCOSE 104 mg/dl (70-99); POTASSIUM 4.4 mmol/L (3.5-5.1); SODIUM 141 mmol/L (136-145)
[2016-08-28 13:16] LABS: ALKALINE PHOSPHATASE 87 U/L (45-117)
[2016-08-28 14:00] VITALS: O2SAT 97; Ht 152.4 cm; Wt 86.5 kg
[2016-08-28] MEDS ORDERED: HYDROCODONE/ACETAMOPHEN 5/325MG TAB PO PRN (15:00)
[2016-08-28] MEDS ORDERED: IV FLUIDS COMPLETED PRN (15:30)
[2016-08-28 15:37] VITALS: O2SAT 96
[2016-08-28] MEDS ORDERED: NITROFURANTOIN MONOHYDRATE 100 MG CAP PO ONE (16:30)
[2016-08-28 17:02] VITALS: BP 143/80; PULSE 69; TEMP 36.4; O2SAT 93
[2016-08-28] MEDS: ONDANSETRON INJ 2 MG/ML 2 ML VIAL IV PRN (19:17)
[2016-08-28] MEDS: NITROFURANTOIN MONOHYDRATE 100 MG CAP PO SCH (20:00)
[2016-08-28] MEDS ORDERED: PROMETHAZINE HCL INJ 12.5 MG in SODIUM CHLORIDE 0.9% 50ML 50 ML IV PRN (20:15)
[2016-08-28] MEDS: EZETIMIBE 10MG TAB PO SCH (20:15)
[2016-08-28] MEDS: LACTOBACILLUS ACIDOPHILUS (FLORANEX) TAB PO SCH (20:15)
[2016-08-28] MEDS: CETIRIZINE HCL 10 MG TAB PO SCH (20:15)
[2016-08-28] MEDS: CHOLECALCIFEROL 1000 INTER.UNIT TAB PO SCH (20:15)
[2016-08-28] MEDS ORDERED: RANITIDINE HCL 150 MG TAB PO ONE (22:02)
--- NOTE | 2016-08-28 22:10 | History and Physical ---
History & Physical Date & Time of Service: Aug 28, 2016 at 14:16 Chief Complaint: Bleeding From Colostomy Primary Care Physician: Madai Leonard C.R.N.P. History of Present Illness Source: patient, family This patient is a 80-year-old female with a history of colectomy with colostomy after perforated diverticulum, hereditary spherocytosis requiring splenectomy, breast cancer, peripheral neuropathy and hypertension, who presents to the ER with nausea mostly in the morning for the last 3 weeks, along with loose stools with intermittent hematochezia in her colostomy bag. She had a CT scan at the beginning of the month that showed some nonspecific transverse colon wall thickening and was treated with Cipro and Flagyl which she took for about one week. She reports her nausea continued and she stopped the antibiotics short of the total 10 day course. She went back to her PCP who tried to get her an appointment as an outpatient with the transition coach at the soonest appointment was in late September. Patient returned to the ER on August [address] scan which didn't show anything significant. She was sent home. She returned to the ER again today with the same complaints of nausea, fatigue, and had more blood in her colostomy bag today than ever before which worried her. She has had some intermittent right lower quadrant pain that's coming and going and feels like spasms. She denies fevers, chills, or sweats. She has developed urinary frequency and urgency over the last few days and did restart by mouth Cipro that she had left over at home twice a day for the last 2 days. Her hemoglobin has only very slightly trended downward in the last month it is still within the normal range at 12.9. She just had a colonoscopy through her ostomy bag as well as per rectum a couple of months ago with Dr. Doss and was told everything was normal. She will be admitted for observation for GI bleeding. Past Medical/Surgical History PMH: History of left sided Breast cancer status post lumpectomy and XRT Constipation Diverticulitis HEREDITARY SPHEROCYTOSIS Ventral Hernia HTN Peripheral neuropathy PSH: Colectomy with Colostomy section x 4 History of left lumpectomy Splenectomy Cholecystectomy Cataracts Right TKA Family History Hypertension Noncontributory Social History Smoking Status: Never Smoker Alcohol Use: none Drug Use: none Marital Status: Housing status: lives with family, lives with significant other Occupational Status: retired Immunizations History of Influenza Vaccine: N/A History of Tetanus Vaccine?: Unknown History of Pneumococcal: Yes History of Hepatitis B Vaccine: Unknown Multi-Drug Resistant Organisms History of MDRO: No Allergies Coded Allergies: Vancomycin (Verified Allergy, Intermediate, rash, 08/28/16) Amoxicillin (Verified Allergy, Unknown, bad reaction/glands swollen puffed up, 08/28/16) Clavulanic Acid (Verified Allergy, Unknown, 08/28/16) Codeine (Verified Allergy, Unknown, 08/28/16) Home Medications Scheduled Ascorbic Acid (Vitamin C), 500 MG PO DAILY Calcium (Calcium), 600 MG PO Q2D Cetirizine (Zyrtec), 5 MG PO QPM Cholecalciferol (Vitamin D 1000 Unit), 2,000 INTER.UNIT PO QPM Ezetimibe (Zetia), 10 MG PO QPM Losartan Potassium (Cozaar), 50 MG PO DAILY Multivitamin (Multivitamin), 1 TAB PO DAILY Ondasetron Odt (Zofran Odt), 4 MG SL Q6H Probiotic Product (Probiotic), 1 CAP PO QPM Scheduled PRN Hydrocodone/Acetaminophen 5MG/325MG ([place] 5MG/325MG), 0.5 TABLET PO HS PRN for Pain Polyethylene Glycol 3350 (Miralax), 17 GM PO DAILY PRN for Constipation Review of Systems Constitutional: + chills, No fever, No sweats Eyes: No problem reported ENT: No problem reported Respiratory: No shortness of breath Cardiovascular: No chest pain, No edema Abdomen: + pain, + nausea, + diarrhea (x 1 month), + GI bleeding, No vomiting Musculoskeletal: No problem reported Genitourinary - Female: + urinary frequency, + urinary urgency (x 3 days) Neurologic: No problem reported Psychiatric: No problem reported Endocrine: No problem reported Hematologic / Lymphatic: No problem reported Integumentary: No problem reported Allergic / Immunologic: No problem reported Physical Exam Vital Signs Date Time Temp Pulse Resp B/P (MAP) Pulse Ox O2 Delivery O2 Flow Rate FiO2 08/28/16 13:14 74 08/28/16 13:13 74 18 196/100 97 Room Air 08/28/16 11:41 36.7 69 18 169/98 95 Room Air General Appearance: WD/WN, no apparent distress, + obese Head: normocephalic, atraumatic Eyes: normal inspection, sclerae normal ENT: hearing grossly normal, pharynx normal Neck: trachea midline Respiratory/Chest: lungs clear, normal breath sounds, no respiratory distress, no accessory muscle use Cardiovascular: regular rate, rhythm, no edema, no gallop, no JVD, no murmur, normal peripheral pulses Abdomen/GI: normal bowel sounds, soft, no organomegaly, no pulsatile mass, + tenderness (in RLQ w/o guarding or rebound), + hernia (ventral, moderate-large, just to right of midline, easily reducible and nontender but caused her to feel nauseaous), + pertinent finding (colostomy bag LLQ withgas but no obvious bleeding currently) Back: normal inspection Extremities/Musculoskelatal: no calf tenderness, no pedal edema Neurologic/Psych: alert, normal mood/affect, oriented x 3 Skin: normal color, warm/dry, no rash Lymphatic: no adenopathy Diagnostics Laboratory Results Results Past 24 Hours Test 08/28/16 11:45 08/28/16 12:10 08/28/16 12:35 08/28/16 12:44 Range/Units Urine Color YELLOW Urine Appearance CLEAR CLEAR Urine pH 7.0 4.5-7.5 Urine Specific [place] 1.017 1.000-1.030 Urine Protein NEG NEG Urine Glucose (UA) NEG NEG Urine Ketones NEG NEG Urine Occult Blood NEG NEG Urine Nitrite POS NEG Urine Bilirubin NEG NEG Urine Urobilinogen NEG NEG Urine Leukocyte Esterase SMALL NEG Urine WBC (Auto) 10-30 0-5 /hpf Urine RBC (Auto) 0-4 0-4 /hpf Urine Hyaline Casts (Auto) 1-5 0-5 /lpf Urine Epithelial Cells (Auto) >30 0-5 /lpf Urine Bacteria (Auto) 1+ NEG Urine Renal Epithelial Cells 0-5 /lpf White Blood Count 6.52 4.8-10.8 K/uL Red Blood Count 4.15 4.2-5.4 M/uL Hemoglobin 12.9 12.0-16.0 g/dL Hematocrit 39.1 37-47 % Mean Corpuscular Volume 94.2 80-100 fL Mean Corpuscular Hemoglobin 31.1 25-34 pg Mean Corpuscular Hemoglobin Concent 33.0 32-36 g/dl Platelet Count 567 130-400 K/uL Mean Platelet Volume 9.1 7.4-10.4 fL Neutrophils (%) (Auto) 45.9 % Lymphocytes (%) (Auto) 34.4 % Monocytes (%) (Auto) 15.6 % Eosinophils (%) (Auto) 2.3 % Basophils (%) (Auto) 0.9 % Neutrophils # (Auto) 2.99 1.4-6.5 K/uL Lymphocytes # (Auto) 2.24 1.2-3.4 K/uL Monocytes # (Auto) 1.02 0.11-0.59 K/uL Eosinophils # (Auto) 0.15 0-0.5 K/uL Basophils # (Auto) 0.06 0-0.2 K/uL RDW Standard Deviation 47.3 36.4-46.3 fL RDW Coefficient of Variation 13.8 11.5-14.5 % Immature Granulocyte % (Auto) 0.9 % Immature Granulocyte # (Auto) 0.06 0.00-0.02 K/uL Sodium Level 141 136-145 mmol/L Potassium Level 4.4 3.5-5.1 mmol/L Chloride Level 105 98-107 mmol/L Carbon Dioxide Level 30 21-32 mmol/L Anion Gap 6.0 15.0 16-25 mmol/L Blood Urea Nitrogen 17 7-18 mg/dl Creatinine 1.10 0.60-1.20 mg/dl Estimated GFR () 55.3 Estimated GFR (Non- 47.7 BUN/Creatinine Ratio 15.6 10-20 Random Glucose 104 70-99 mg/dl Calcium Level 9.2 8.5-10.1 mg/dl Total Bilirubin 0.4 0.2-1 mg/dl Direct Bilirubin < 0.1 0-0.2 mg/dl Aspartate Amino Transf (AST/SGOT) 23 15-37 U/L Alanine Aminotransferase (ALT/SGPT) 19 12-78 U/L Alkaline Phosphatase 87 45-117 U/L Total Protein 7.1 6.4-8.2 gm/dl Albumin 3.1 3.4-5.0 gm/dl Lipase 279 73-393 U/L Bedside Hemoglobin 12.2 12.0-16.0 g/dl Bedside Hematocrit 36 37-47 % Bedside Sodium 139 135-144 mEq/L Bedside Potassium 4.4 3.3-5.0 mEq/L Bedside Chloride 101 101-112 mEq/L Bedside Total CO2 28 24-31 mEq/l Bedside Blood Urea Nitrogen 17 7-18 mg/dl Bedside Creatinine 1.1 0.6-1.3 mg/dl Bedside Glucose (other) 108 70-99 mg/dl Bedside Ionized Calcium (Dylan) 1.17 1.12-1.32 mmol/l Microbiology Results 08/28/16 C.difficile Toxin B Gene (PCR) - Final, Complete No C. difficile toxin B gene detected 08/28/16 Shiga Toxin Test, Received Pending 08/28/16 Stool Culture, Received Pending Diagnostic Radiology CT ABD/PELVIS IV CONTRAST ONLY CLINICAL HISTORY: Right lower quadrant abdominal pain. Bleeding from colostomy. COMPARISON STUDY: 08/22/2016 TECHNIQUE: Following the IV administration of 94 mL of Optiray-320, CT scan of the abdomen and pelvis was performed from the lung bases to the proximal femurs. Images are reviewed in the axial, sagittal, and coronal planes. IV contrast was administered without complication. A dose lowering technique was utilized adhering to the principles of ALARA. CT DOSE: 827.29 mGy.cm FINDINGS: Lower chest: There is by basilar subpleural reticulation, likely atelectatic. Liver: No focal hepatic masses are visualized. There are mildly prominent central intrahepatic ducts, unchanged the prior study Gallbladder: Surgically absent Spleen: Not visualized Pancreas: No masses are visualized. There is stable mild dilatation of the pancreatic duct within the head of the pancreas Adrenal glands: Unremarkable. Kidneys: There is symmetric renal cortical enhancement. The kidneys are normal in size without hydronephrosis. Bowel: Postsurgical changes are visualized within the colon. 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 There is a left lower quadrant colostomy. There is colonic diverticulosis. No acute peridiverticular inflammatory changes are visualized. There is a ventral hernia containing colonic loops. There is no evidence of acute appendicitis. Peritoneum: There is no intraperitoneal free air or abdominal ascites. Vasculature: The abdominal aorta is normal in course and caliber. Adenopathy: There is bladder wall thickening with mild infiltration of fat surrounding the bladder. Pelvic viscera: The bladder, and pelvic viscera are unremarkable. Skeletal structures: No destructive osseous lesions are seen. IMPRESSION: 1. Postsurgical changes with a left lower quadrant ostomy. There is a small parastomal hernia 2. Ventral hernia containing colon. 3. Diverticulosis. No evidence of acute diverticulitis 4. No evidence of bowel obstruction. No evidence of free air 5. Bladder wall thickening with mild infiltration of the surrounding fat. Correlation with urinalysis is recommended to exclude a cystitis 6. Stable mild dilatation of the pancreatic duct within the head of the pancreas Impression Assessment and Plan This patient is a 80-year-old female with a history of colectomy with colostomy after perforated diverticulum, hereditary spherocytosis requiring splenectomy, breast cancer, peripheral neuropathy and hypertension, who presents to the ER with nausea mostly in the morning for the last 3 weeks, along with loose stools with intermittent hematochezia in her colostomy bag. She had a CT scan at the beginning of the month that showed some nonspecific transverse colon wall thickening and was treated with Cipro and Flagyl which she took for about one week. She reports her nausea continued and she stopped the antibiotics short of the total 10 day course. She went back to her PCP who tried to get her an appointment as an outpatient with the transition coach at the soonest appointment was in late September. Patient returned to the ER on August [address] scan which didn't show anything significant. She was sent home. She returned to the ER again today with the same complaints of nausea, fatigue, and had more blood in her colostomy bag today than ever before which worried her. She has had some intermittent right lower quadrant pain that's coming and going and feels like spasms. She denies fevers, chills, or sweats. She has developed urinary frequency and urgency over the last few days and did restart by mouth Cipro that she had left over at home twice a day for the last 2 days. Her hemoglobin has only very slightly trended downward in the last month it is still within the normal range at 12.9. She just had a colonoscopy through her ostomy bag as well as per rectum a couple of months ago with Dr. Doss and was told everything was normal. She will be admitted for observation for GI bleeding. GI bleeding into colostomy/nausea/loose stools-going on for 1 month, hemoglobin with 1 g drop over the last 1 month. Does have a large ventral hernia but it's reducible and not likely related to the bleeding. Could be coming from the ostomy perhaps. C. difficile antigen is negative. Stool ova and parasites were -3 weeks ago -Consult GI -Follow hemoglobin -Start Zantac for nausea, consider EGD for daily nausea -Zofran and Phenergan also as needed for nausea -Follow stool culture, follow Giardia and Norovirus studies ordered in the ER UTI-abnormal UA along with symptoms in the last couple of days, not responding to outpatient by mouth Cipro -Start Macrobid and give twice a day for 7 days HTN-BP slightly high initially, now improved -Continue losartan 50 mg daily Hyperlipidemia -Continue Zetia 10 mg daily Peripheral neuropathy -Continue gabapentin 200 mg at night Hx of spherocytosis status post splenectomy-CBC stable with chronic thrombocytosis DVT prophylaxis -No chemical prophylaxis given GI bleeding - SCDs Disposition-full code To home in 1-2 days Discussed case in depth with the patient's daughter who is a physician college sports assistant on the phone as per patient's wishes Level of Care Med/Surg Resuscitation Status FULL RESUSCITATION VTE Prophylaxis Given or contraindicated: SCD's Additional Copies To Madai Leonard, C.R.N.P.
[2016-08-29 00:07] VITALS: BP 149/81; PULSE 69; TEMP 36.6; O2SAT 92
[2016-08-29] MEDS: ONDANSETRON INJ 2 MG/ML 2 ML VIAL IV PRN ×2 (03:48→09:48)
[2016-08-29 07:06] LABS: BASO % 0.9 %; BASO ABS # 0.06 K/uL (0-0.2); COMPLETE YES; EOS % 2.2 %; IG% 0.7 %; LYMPH % 26.9 %; LYMPH ABS # 1.87 K/uL (1.2-3.4); MEAN CORPUSCULAR HEMOGLOBIN 31.1 pg (25-34); MEAN CORPUSCULAR HGB CONC 32.8 g/dl (32-36); MEAN PLATELET VOLUME 9.8 fL (7.4-10.4); MONO % 14.5 %; NEUT % 54.8 %; PLATELET COUNT 526 K/uL (130-400); RED BLOOD COUNT 4.21 M/uL (4.2-5.4); WHITE BLOOD COUNT 6.96 K/uL (4.8-10.8)
[2016-08-29 07:36] VITALS: BP 142/76; PULSE 100; TEMP 36.6; O2SAT 96
[2016-08-29 07:45] LABS: CALCIUM 9.1 mg/dl (8.5-10.1); CREATININE 0.87 mg/dl (0.60-1.20); POTASSIUM 3.8 mmol/L (3.5-5.1)
[2016-08-29] MEDS: LOSARTAN POTASSIUM 50 MG TAB PO SCH (07:50)
[2016-08-29] MEDS: RANITIDINE HCL 150 MG TAB PO SCH ×2 (07:50→21:02)
[2016-08-29] MEDS: NITROFURANTOIN MONOHYDRATE 100 MG CAP PO SCH (07:52)
[2016-08-29] MEDS: ASCORBIC ACID 500 MG TAB PO SCH (07:52)
[2016-08-29] MEDS: MULTIVITAMIN TAB PO SCH (07:52)
[2016-08-29] MEDS: CALCIUM CARBONATE 1250MG TAB PO SCH (07:52)
--- NOTE | 2016-08-29 08:50 | Hospitalist Progress Note ---
Hospitalist Progress Note Date of Service Aug 29, 2016. Subjective Pt evaluation today including: conversation w/ patient, conversation w/ family , physical exam, chart review, lab review, review of studies, conversation w/ [facility] consultant ([facility]), review of inpatient medication list Patient seen and evaluated. Evaluated with GI service at bedside. Updated family and daughter. Patient has had abdominal issues since July 08. Stating she just recently returned from 21 days in [place] prior to these symptoms starting. Also stated she was not feeling well since cataract surgery. She has had ongoing issues with nausea and abdominal pain. States these sensations are burning in nature. Does use motrin but hasn't in about a week. Reports that she normally wakes up with nausea and burning sensation with these symptoms being worse in the AM. Reporting throughout all this she hasnt felt good due to generalized fatigue. She denies heart issues or diagnoses. Constitutional: + fatigue, No fever, No chills Eyes: No worsening of vision ENT: No nasal symptoms, No sore throat, No trouble swallowing Respiratory: No cough, No shortness of breath Cardiovascular: No chest pain Abdomen: + pain, + nausea, + diarrhea (currently resolved but was loose yesterday), + GI bleeding, No vomiting Musculoskeletal: + swelling (bilateral lower extremity edema - reporting 10 lb weight gain in 1 month) Female : + dysuria Skin: No rash Medications Current Inpatient Medications Medications (Trade) Dose Ordered Sig/Jonas Route Start Time Stop Time Status Last Admin Dose Admin Ioversol (Optiray 320) 125 ml UD PRN IV 08/28/16 12:15 09/01/16 12:14 Acetaminophen (Tylenol Tab) 650 mg Q4H PRN PO 08/28/16 15:00 09/27/16 14:59 Ondansetron HCl (Zofran Inj) 4 mg Q6H PRN IV 08/28/16 15:00 09/27/16 14:59 08/29/16 09:48 4 MG Ascorbic Acid (Vitamin C Tab) 500 mg DAILY PO 08/29/16 08:00 09/28/16 08:59 Cetirizine HCl (zyrTEC TAB) 5 mg QPM PO 08/28/16 21:00 09/27/16 20:59 Cholecalciferol (Vitamin D Tab) 2,000 inter.unit QPM PO 08/28/16 21:00 09/27/16 20:59 EZETIMIBE (Zetia Tab) 10 mg QPM PO 08/28/16 21:00 09/27/16 20:59 Acetaminophen/ Hydrocodone Bitart ([place] 5/325 Tab) 1 tab Q6H PRN PO 08/28/16 15:00 09/11/16 14:59 Losartan Potassium (coZAAR TAB) 50 mg DAILY PO 08/29/16 08:00 09/28/16 08:59 08/29/16 07:50 50 MG Multivitamins (Multivitamin Tab) 1 tab DAILY PO 08/29/16 08:00 09/28/16 08:59 Calcium Carbonate (oS-Shree 500 TAB) 1,250 mg Q2D@0900 PO 08/29/16 09:00 09/28/16 08:59 Lactobacillus Acidophilus (Floranex Tab) 4 tab HS PO 08/28/16 21:00 09/27/16 20:59 Nitrofurantoin Macrocrystals (Macrobid Cap) 100 mg BID PO 08/28/16 20:00 09/02/16 20:59 Miscellaneous (Iv Fluids Completed) 1 ea PRN PRN N/A 08/28/16 15:30 08/28/17 15:29 Promethazine HCl 12.5 mg/Sodium Chloride 50.5 ml @ 204 mls/hr Q6H PRN IV 08/28/16 20:15 09/27/16 20:14 Ranitidine HCl (zANTac TAB) 150 mg BID PO 08/29/16 08:00 09/28/16 07:59 08/29/16 07:50 150 MG Pantoprazole Sodium (Protonix Tab) 40 mg BID PO 08/29/16 20:00 09/28/16 19:59 Objective Vital Signs Date Time Temp Pulse Resp B/P (MAP) Pulse Ox O2 Delivery O2 Flow Rate FiO2 08/29/16 07:36 36.6 100 18 142/76 (98) 96 Room Air 08/29/16 00:15 Room Air 08/29/16 00:07 36.6 69 20 149/81 (103) 92 Room Air 08/28/16 20:01 Room Air 08/28/16 17:02 36.4 69 18 143/80 (101) 93 Room Air 08/28/16 15:37 79 16 164/88 96 Room Air 08/28/16 14:00 97 Room Air 08/28/16 13:14 74 08/28/16 13:13 74 18 196/100 97 Room Air 08/28/16 11:41 36.7 69 18 169/98 95 Room Air Physical Exam General Appearance: no apparent distress Eyes: sclerae normal ENT: hearing grossly normal Neck: supple, no JVD, trachea midline Respiratory/Chest: lungs clear, normal breath sounds, no respiratory distress, no accessory muscle use Cardiovascular: regular rate, rhythm, no gallop, no murmur Abdomen: normal bowel sounds, soft, + pertinent finding (Colostomy in LLQ with formed stool; no evidence of blood; stoma beefy red (reports more erythematous than baseline)) Extremities: no calf tenderness, + swelling (trace pitting edema bilat lower extremities) Neurologic/Psychiatric: alert, oriented x 3 Skin: normal color, warm/dry Laboratory Results Last 24 Hours Test 08/28/16 11:45 08/28/16 12:10 08/28/16 12:35 08/28/16 12:44 Urine Color YELLOW Urine Appearance CLEAR Urine pH 7.0 Urine Specific [place] 1.017 Urine Protein NEG Urine Glucose (UA) NEG Urine Ketones NEG Urine Occult Blood NEG Urine Nitrite POS Urine Bilirubin NEG Urine Urobilinogen NEG Urine Leukocyte Esterase SMALL Urine WBC (Auto) 10-30 /hpf Urine RBC (Auto) 0-4 /hpf Urine Hyaline Casts (Auto) 1-5 /lpf Urine Epithelial Cells (Auto) >30 /lpf Urine Bacteria (Auto) 1+ Urine Renal Epithelial Cells /lpf White Blood Count 6.52 K/uL Red Blood Count 4.15 M/uL Hemoglobin 12.9 g/dL Hematocrit 39.1 % Mean Corpuscular Volume 94.2 fL Mean Corpuscular Hemoglobin 31.1 pg Mean Corpuscular Hemoglobin Concent 33.0 g/dl Platelet Count 567 K/uL Mean Platelet Volume 9.1 fL Neutrophils (%) (Auto) 45.9 % Lymphocytes (%) (Auto) 34.4 % Monocytes (%) (Auto) 15.6 % Eosinophils (%) (Auto) 2.3 % Basophils (%) (Auto) 0.9 % Neutrophils # (Auto) 2.99 K/uL Lymphocytes # (Auto) 2.24 K/uL Monocytes # (Auto) 1.02 K/uL Eosinophils # (Auto) 0.15 K/uL Basophils # (Auto) 0.06 K/uL RDW Standard Deviation 47.3 fL RDW Coefficient of Variation 13.8 % Immature Granulocyte % (Auto) 0.9 % Immature Granulocyte # (Auto) 0.06 K/uL Sodium Level 141 mmol/L Potassium Level 4.4 mmol/L Chloride Level 105 mmol/L Carbon Dioxide Level 30 mmol/L Anion Gap 6.0 mmol/L 15.0 mmol/L Blood Urea Nitrogen 17 mg/dl Creatinine 1.10 mg/dl Estimated GFR () 55.3 Estimated GFR (Non- 47.7 BUN/Creatinine Ratio 15.6 Random Glucose 104 mg/dl Calcium Level 9.2 mg/dl Total Bilirubin 0.4 mg/dl Direct Bilirubin < 0.1 mg/dl Aspartate Amino Transf (AST/SGOT) 23 U/L Alanine Aminotransferase (ALT/SGPT) 19 U/L Alkaline Phosphatase 87 U/L Total Protein 7.1 gm/dl Albumin 3.1 gm/dl Lipase 279 U/L Bedside Hemoglobin 12.2 g/dl Bedside Hematocrit 36 % Bedside Sodium 139 mEq/L Bedside Potassium 4.4 mEq/L Bedside Chloride 101 mEq/L Bedside Total CO2 28 mEq/l Bedside Blood Urea Nitrogen 17 mg/dl Bedside Creatinine 1.1 mg/dl Bedside Glucose (other) 108 mg/dl Bedside Ionized Calcium ([place]ylan) 1.17 mmol/l Test 08/28/16 17:49 08/29/16 05:56 Hemoglobin 12.6 g/dL 13.1 g/dL Hematocrit 39.0 % 40.0 % White Blood Count 6.96 K/uL Red Blood Count 4.21 M/uL Mean Corpuscular Volume 95.0 fL Mean Corpuscular Hemoglobin 31.1 pg Mean Corpuscular Hemoglobin Concent 32.8 g/dl Platelet Count 526 K/uL Mean Platelet Volume 9.8 fL Neutrophils (%) (Auto) 54.8 % Lymphocytes (%) (Auto) 26.9 % Monocytes (%) (Auto) 14.5 % Eosinophils (%) (Auto) 2.2 % Basophils (%) (Auto) 0.9 % Neutrophils # (Auto) 3.82 K/uL Lymphocytes # (Auto) 1.87 K/uL Monocytes # (Auto) 1.01 K/uL Eosinophils # (Auto) 0.15 K/uL Basophils # (Auto) 0.06 K/uL RDW Standard Deviation 47.7 fL RDW Coefficient of Variation 13.8 % Immature Granulocyte % (Auto) 0.7 % Immature Granulocyte # (Auto) 0.05 K/uL Sodium Level 140 mmol/L Potassium Level 3.8 mmol/L Chloride Level 104 mmol/L Carbon Dioxide Level 29 mmol/L Anion Gap 7.0 mmol/L Blood Urea Nitrogen 11 mg/dl Creatinine 0.87 mg/dl Est Creatinine Clear Calc Drug Dose 51.2 ml/min Estimated GFR () 73.4 Estimated GFR (Non- 63.4 BUN/Creatinine Ratio 13.0 Random Glucose 93 mg/dl Calcium Level 9.1 mg/dl Magnesium Level 2.0 mg/dl Assessment and Plan Ms. Grace is a 81 y/o female who presents with loose stool, GI bleed in colostomy , and chronic nausea GI Bleed/Loose Stool/Nausea with Colostomy: - Recent 21 day travel to [place] prior to symptoms start - previous stool studies negative; possible blood from stoma - Hgb slightly improved from previous labs to 13.1 - Stool Cx, Giardia, Norovirus - pending - Zofran and Phenergan - Advance diet - Will add Carafate - GI Consultation - present for discussion with GI at bedside -- Plan to incorporate PPI BID and continue Zantac for GERD symptoms -- Wound care to assess ostomy UTI: - Refused Macrobid due to GI upset - will switch to Ciprofloxacin 500 mg BID HTN: STABLE - Losartan 50 mg daily Hyperlipidemia: - Zetia 10 mg daily Peripheral Neuropathy: - Gabapentin 200 mg at night Spherocytosis and Chronic Thrombocytosis S/P Splenectomy: STABLE DVT Prophylaxis: SCDs; avoid chemical prophylaxis due to GI bleeding Code Status: FULL RESUSCITATION Disposition: - Will monitor today and assess improvement with medication adjustments - possible D/C 1-2 days Continued [facility] stay due to: multiple IV medications needed
--- NOTE | 2016-08-29 10:28 | Gastrointestinal Consultation ---
Gastrointestinal Consultation Date of Consultation: Aug 29, 2016 Attending Physician: Dr. Vivian Hein Consulting Physician: Dr. Jones Reason for Consultation: bleeding into ostomy; diarrhea x 1 month History of Present Illness Patient is a 81 year old female patient of Madai Leonard NP ([facility]) who presented to the ED yesterday for blood in her ostomy bag. She had also been in the ED two times previously this month for nausea and abdominal pain. GI is consulted for blood in her ostomy and diarrhea. The pt tells me that her symptoms began abruptly on August 07 with nausea and lower abdomen pain. At that time, she also noted a change in her ostomy output, from one soft, semiformed stool/day to one looser BM/day but no increased volume or frequency of BMs. She had some sick contacts in her extended family at that time but her who lives with her has been well. She also adds that her stools have been "all whaky" since her colonoscopy in June. Regarding her current symptoms, her lower abdomen pain changed to epigastric pain in the past few days. The pain is not related to eating and is "constant, burning." She also c/o of an antibiotic that she was given yesterday as causing "terrible sickness/burning." A review of meds shows that she took a nitrofurantoin dose. Colonoscopy by Dr. Doss for rectal bleeding in June was with rectal inflammation and acute on chronic inflammation on rectal biopsies. A non contrast CT of the abd/pelvis on 08/08 suggested mild bowel wall thickening of the transverse colon, nonspecific. This was not present on CT with IV and oral contrast on 08/[address] with IV contrast on 08/28. There was hernia and chronic biliary ductal dilation on CT. LFT and lipase have been normal. On exam , she is very tender over the epigastric area and has trigger point tenderness on the right lower/anterior ribs. She has a small to moderate amt of bright red liquid blood in her ostomy bag as well as semi-formed brown stool. Hb has remained normal, today 13.1. Past Medical/Surgical History Medical Problems: (1) Dehydration Status: Acute (2) Diarrhea Status: Acute (3) Diarrhea Status: Acute (4) GI bleed Status: Acute (5) Upper abdominal pain Status: Acute Past Medical History: 1. Left breast cancer status post lumpectomy and XRT 2. Constipation 3. Diverticulitis 4. Hereditary spherocytosis 5. Ventral Hernia 6. HTN 7. Peripheral neuropathy Past Surgical History: 1. Colectomy with Colostomy for diverticular disease 2. section x 4 3. History of left lumpectomy 4. Splenectomy 5. Cholecystectomy 6. Cataracts 7. Right TKA 8. Colonoscopy for rectal bleeding by Dr. Doss on 06/27/16 rectal erythema Rectal bx with acute and chronic inflammation with ulceration and granuloma. Family History Hypertension Social History Smoking Status: Never Smoker Alcohol Use: none Drug Use: none Marital Status: Housing Status: lives with family Occupation Status: retired Allergies Coded Allergies: Vancomycin (Verified Allergy, Intermediate, rash, 08/28/16) Amoxicillin (Verified Allergy, Unknown, bad reaction/glands swollen puffed up, 08/28/16) Clavulanic Acid (Verified Allergy, Unknown, 08/28/16) Codeine (Verified Allergy, Unknown, 08/28/16) Current Medications Home Meds and Scripts Medications Dose Route/Sig Max Daily Dose Days Date Category Dose Instructions Zofran Odt (Ondansetron HCl) 4 Mg Tab 4 Mg SL Q6H 08/22/16 Rx [place] 5MG/325MG (Acetaminophen/Hydrocodone Bitart) Tab 0.5 Tablet PO HS PRN 08/22/16 Reported PRN PAIN Miralax (Polyethylene Glycol 3350) 1 Pow Pow 17 Gm PO DAILY PRN 09/19/14 Reported Cozaar (Losartan Potassium) 50 Mg Tab 50 Mg PO DAILY 09/19/14 Reported Probiotic (Probiotic Product) 1 Cap Cap 1 Cap PO QPM 08/23/13 Reported Vitamin D 1000 Unit (Cholecalciferol) 1,000 Unit Cap 2,000 Inter.unit PO QPM 06/22/13 Reported Vitamin C (Ascorbic Acid) 500 Mg Tab 500 Mg PO DAILY 06/22/13 Reported Zetia (Ezetimibe) 10 Mg Tab 10 Mg PO QPM 12/09/12 Reported Zyrtec (Cetirizine HCl) 10 Mg Tab 5 Mg PO QPM 09/02/12 Reported Calcium 600 Mg Tab 600 Mg PO Q2D 09/02/12 Reported Multivitamin (Multivitamins) Tab 1 Tab PO DAILY 06/08/10 Reported Review of Systems Constitutional: No fever, No chills, No sweats, No weight loss, No weakness Eyes: No eye pain, No redness ENT: No sore throat, No trouble swallowing, No pain on swallowing Respiratory: No cough, No wheezing, No shortness of breath, No dyspnea on exertion Cardiac: No chest pain, No edema, No palpitations Abdomen: + see HPI, + pain, + nausea, + diarrhea (loose but not liquid BMs), + GI bleeding (bright red blood in ostomy bag), No vomiting Neuro: No memory loss, No weakness, No numbness/tingling, No vertigo, No balance problems Psych: No depression symptoms, No anxiety, No insomnia Heme: No abnormal bleeding/bruising, No night sweats Endo: No excessive thirst, No excessive urination Skin: No rash, No itch, No new/changing skin lesions, No jaundice Physical Exam Date Time Temp Pulse Resp B/P (MAP) Pulse Ox O2 Delivery O2 Flow Rate FiO2 08/29/16 07:36 36.6 100 18 142/76 (98) 96 Room Air 08/29/16 00:15 Room Air 08/29/16 00:07 36.6 69 20 149/81 (103) 92 Room Air 08/28/16 20:01 Room Air 08/28/16 17:02 36.4 69 18 143/80 (101) 93 Room Air 08/28/16 15:37 79 16 164/88 96 Room Air 08/28/16 14:00 97 Room Air 08/28/16 13:14 74 08/28/16 13:13 74 18 196/100 97 Room Air 08/28/16 11:41 36.7 69 18 169/98 95 Room Air General Appearance: no apparent distress, + moderate distress Eyes: normal inspection, EOMI Neck: supple, no adenopathy, thyroid normal Respiratory/Chest: chest non-tender, lungs clear, normal breath sounds, no accessory muscle use Cardiovascular: regular rate, rhythm, no JVD, no murmur Abdomen: normal bowel sounds, soft, no organomegaly, + tenderness (very tender in the epigastric area), + pertinent finding (ostomy bag with formed brown stool and about 10cc of bright/dark red blood) Extremities: normal inspection, no pedal edema, normal capillary refill Neurologic/Psych: alert, normal mood/affect, oriented x 3 Skin: normal color, no jaundice, warm/dry, no rash Laboratory Results Last 24 Hours Test 08/28/16 11:45 08/28/16 12:10 08/28/16 12:35 08/28/16 12:44 Urine Color YELLOW Urine Appearance CLEAR Urine pH 7.0 Urine Specific [place] 1.017 Urine Protein NEG Urine Glucose (UA) NEG Urine Ketones NEG Urine Occult Blood NEG Urine Nitrite POS Urine Bilirubin NEG Urine Urobilinogen NEG Urine Leukocyte Esterase SMALL Urine WBC (Auto) 10-30 /hpf Urine RBC (Auto) 0-4 /hpf Urine Hyaline Casts (Auto) 1-5 /lpf Urine Epithelial Cells (Auto) >30 /lpf Urine Bacteria (Auto) 1+ Urine Renal Epithelial Cells /lpf White Blood Count 6.52 K/uL Red Blood Count 4.15 M/uL Hemoglobin 12.9 g/dL Hematocrit 39.1 % Mean Corpuscular Volume 94.2 fL Mean Corpuscular Hemoglobin 31.1 pg Mean Corpuscular Hemoglobin Concent 33.0 g/dl Platelet Count 567 K/uL Mean Platelet Volume 9.1 fL Neutrophils (%) (Auto) 45.9 % Lymphocytes (%) (Auto) 34.4 % Monocytes (%) (Auto) 15.6 % Eosinophils (%) (Auto) 2.3 % Basophils (%) (Auto) 0.9 % Neutrophils # (Auto) 2.99 K/uL Lymphocytes # (Auto) 2.24 K/uL Monocytes # (Auto) 1.02 K/uL Eosinophils # (Auto) 0.15 K/uL Basophils # (Auto) 0.06 K/uL RDW Standard Deviation 47.3 fL RDW Coefficient of Variation 13.8 % Immature Granulocyte % (Auto) 0.9 % Immature Granulocyte # (Auto) 0.06 K/uL Sodium Level 141 mmol/L Potassium Level 4.4 mmol/L Chloride Level 105 mmol/L Carbon Dioxide Level 30 mmol/L Anion Gap 6.0 mmol/L 15.0 mmol/L Blood Urea Nitrogen 17 mg/dl Creatinine 1.10 mg/dl Estimated GFR () 55.3 Estimated GFR (Non- 47.7 BUN/Creatinine Ratio 15.6 Random Glucose 104 mg/dl Calcium Level 9.2 mg/dl Total Bilirubin 0.4 mg/dl Direct Bilirubin < 0.1 mg/dl Aspartate Amino Transf (AST/SGOT) 23 U/L Alanine Aminotransferase (ALT/SGPT) 19 U/L Alkaline Phosphatase 87 U/L Total Protein 7.1 gm/dl Albumin 3.1 gm/dl Lipase 279 U/L Bedside Hemoglobin 12.2 g/dl Bedside Hematocrit 36 % Bedside Sodium 139 mEq/L Bedside Potassium 4.4 mEq/L Bedside Chloride 101 mEq/L Bedside Total CO2 28 mEq/l Bedside Blood Urea Nitrogen 17 mg/dl Bedside Creatinine 1.1 mg/dl Bedside Glucose (other) 108 mg/dl Bedside Ionized Calcium (Dylan) 1.17 mmol/l Test 08/28/16 17:49 08/29/16 05:56 Hemoglobin 12.6 g/dL 13.1 g/dL Hematocrit 39.0 % 40.0 % White Blood Count 6.96 K/uL Red Blood Count 4.21 M/uL Mean Corpuscular Volume 95.0 fL Mean Corpuscular Hemoglobin 31.1 pg Mean Corpuscular Hemoglobin Concent 32.8 g/dl Platelet Count 526 K/uL Mean Platelet Volume 9.8 fL Neutrophils (%) (Auto) 54.8 % Lymphocytes (%) (Auto) 26.9 % Monocytes (%) (Auto) 14.5 % Eosinophils (%) (Auto) 2.2 % Basophils (%) (Auto) 0.9 % Neutrophils # (Auto) 3.82 K/uL Lymphocytes # (Auto) 1.87 K/uL Monocytes # (Auto) 1.01 K/uL Eosinophils # (Auto) 0.15 K/uL Basophils # (Auto) 0.06 K/uL RDW Standard Deviation 47.7 fL RDW Coefficient of Variation 13.8 % Immature Granulocyte % (Auto) 0.7 % Immature Granulocyte # (Auto) 0.05 K/uL Sodium Level 140 mmol/L Potassium Level 3.8 mmol/L Chloride Level 104 mmol/L Carbon Dioxide Level 29 mmol/L Anion Gap 7.0 mmol/L Blood Urea Nitrogen 11 mg/dl Creatinine 0.87 mg/dl Est Creatinine Clear Calc Drug Dose 51.2 ml/min Estimated GFR () 73.4 Estimated GFR (Non- 63.4 BUN/Creatinine Ratio 13.0 Random Glucose 93 mg/dl Calcium Level 9.1 mg/dl Magnesium Level 2.0 mg/dl Impression Patient is a 81 year old female with: 1. Diffuse, migratory abdominal pain. Likely related to adhesive disease from prior surgeries vs. functional, though may have had an infectious colitis with post infectious IBS. 2. Bleeding from the ostomy site, but not hemodynamically significant. She may have a pouchitis. These was acute/chronic inflammation in the rectum in June. Also considered is ischemic colitis. 3. There is a musculoskeletal component to her pain as well (sitting up causes right lower rib pain that radiates to the abdomen - reproducing some of her abdominal pain). Plan 1. She has had recent colonoscopy by Dr. Doss so would hesitate to repeat this. 2. Because pain is mostly epigastric and burning, would add a PPI and continue Ranitidine. 3. Please consider cardiac testing for generalized weakness and 10 lbs weight gain in the past month. I have seen, examined, and agree with the exam as outlined above by LENNIE Denise. -Ostomy with some irritation and solid stool without blood -Has GERD symptoms ? 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
[2016-08-29] MEDS ORDERED: CIPROFLOXACIN 500 MG TAB PO ONE (13:30)
--- NOTE | 2016-08-29 15:36 | ECHOCARDIOGRAM REPORT ---
*NOTICE TO RECEIVING CONSTITUTION PARTY AGENCY This information is strictly Confidential and protected under [place] law. [place] law prohibits you from making any further disclosure of this information unless further disclosure is expressly permitted by the written consent of the person to whom it pertains or is authorized by law. A general authorization for the release of medical or other information is not sufficient for this purpose. Hospital accepts no responsibility if the information is made available to any other person, INCLUDING THE PATIENT. Interpretation Summary * Name: FLO DYE Study Date: 08/29/2016 01:40 PM BP: 142/76 mmHg * Patient Location: .4E\S\E404\S\1 HR: 87 * : 1935 (M/d/yyyy) Gender: Female Height: 60 in * Age: 81 yrs Ethnicity: [place] Weight: 190 lb * Ordering Physician: Meg Mcmanus * Referring Physician: Self, Referred * Performed By: Camila Cole RCS * * Reason For Study: CHF * BSA: 1.8 m2 * -- Conclusions -- * Left ventricular systolic function is normal. * No regional wall motion abnormalities noted. * Ejection Fraction = 60-65%. * There is borderline concentric left ventricular hypertrophy. * No significant valvular pathology. Procedure Details * Left Ventricle The left ventricle is normal in size. There is borderline concentric left ventricular hypertrophy. Ejection Fraction = 60-65%. Left ventricular systolic function is normal. No regional wall motion abnormalities noted. * Right Ventricle The right ventricle is grossly normal size. The right ventricular systolic function is normal as assessed by tricuspid annular plane systolic excursion (TAPSE) (normal >1.5 cm). * Atria The left atrial size is normal. Right atrial size is normal. There is no evidence of atrial septal defect, but resolution does not allow assessment for a patent foramen ovale. * Mitral Valve The mitral valve is grossly normal. There is no mitral valve stenosis. Significant mitral regurgitation is absent. * Tricuspid Valve The tricuspid valve is not well visualized, but is grossly normal. There is no tricuspid stenosis. There is trace tricuspid regurgitation. * Aortic Valve The aortic valve is normal in structure and function. No hemodynamically significant valvular aortic stenosis. No aortic regurgitation is present. * Pulmonic Valve The pulmonary valve is not well seen, but the Doppler examination is normal without significant regurgitation or stenosis. * Great Vessels The aortic root and proximal ascending aorta are normal sized. The pulmonary is not well visualized. * Pericardium/Pleural There is no pericardial effusion. * Great Vessels The inferior vena cava was not well seen. * * MMode 2D Measurements and Calculations * IVSd 0.95 cm * * LVIDd 4.2 cm * LVIDs 2.4 cm * LVPWd 1.1 cm * * IVS/LVPW 0.90 * FS 43.5 % * EDV(Teich) 78.4 ml * ESV(Teich) 19.6 ml * EF(Teich) 75.0 % * * EDV(cubed) 73.8 ml * ESV(cubed) 13.3 ml * EF(cubed) 81.9 % * * LV mass(C)d 137.8 grams * LV mass(C)dI 75.5 grams/m\S\2 * * SV(Teich) 58.8 ml * SI(Teich) 32.2 ml/m\S\2 * SV(cubed) 60.5 ml * SI(cubed) 33.1 ml/m\S\2 * * asc Aorta Diam 3.4 cm * * LVAd ap4 26.9 cm\S\2 * LVLd ap4 8.1 cm * EDV(MOD-sp4) 74.2 ml * EDV(sp4-el) 75.5 ml * LVAs ap4 15.3 cm\S\2 * LVLs ap4 6.2 cm * ESV(MOD-sp4) 33.4 ml * ESV(sp4-el) 31.9 ml * EF(MOD-sp4) 55.0 % * EF(sp4-el) 57.7 % * * LVAd ap2 29.2 cm\S\2 * LVLd ap2 8.3 cm * EDV(MOD-sp2) 84.3 ml * EDV(sp2-el) 87.9 ml * LVAs ap2 12.9 cm\S\2 * LVLs ap2 5.9 cm * ESV(MOD-sp2) 24.2 ml * ESV(sp2-el) 24.2 ml * EF(MOD-sp2) 71.3 % * EF(sp2-el) 72.4 % * * LVLd %diff 1.5 % * EDV(MOD-bp) 81.2 ml * LVLs %diff -6.26 % * ESV(MOD-bp) 28.3 ml * EF(MOD-bp) 65.2 % * * SV(MOD-sp4) 40.8 ml * SI(MOD-sp4) 22.3 ml/m\S\2 * * SV(MOD-sp2) 60.1 ml * SI(MOD-sp2) 32.9 ml/m\S\2 * * SV(MOD-bp) 53.0 ml * SI(MOD-bp) 29.0 ml/m\S\2 * * SV(sp4-el) 43.6 ml * SI(sp4-el) 23.8 ml/m\S\2 * * SV(sp2-el) 63.7 ml * SI(sp2-el) 34.9 ml/m\S\2 * * * * Doppler Measurements and Calculations * MV E max loi 60.1 cm/sec * MV A max loi 79.5 cm/sec * * MV E/A 0.76 * * Ao V2 max 123.7 cm/sec * Ao max PG 6.1 mmHg * Ao max PG (full) 2.4 mmHg * * LV V1 max PG 3.7 mmHg * * LV V1 max 96.0 cm/sec * * TR max loi 234.8 cm/sec * * * *
[2016-08-29 15:42] VITALS: BP 120/77; PULSE 84; TEMP 36.4; O2SAT 94
[2016-08-29] MEDS: SUCRALFATE 1 GM/10 ML UDC PO SCH ×2 (17:06→20:52)
[2016-08-29] MEDS: ACETAMINOPHEN 325 MG TAB PO PRN (20:52)
[2016-08-29] MEDS: CIPROFLOXACIN 500 MG TAB PO SCH (20:54)
[2016-08-29] MEDS: PANTOprazole SOD 40 MG TAB PO SCH (20:54)
[2016-08-29] MEDS: CHOLECALCIFEROL 1000 INTER.UNIT TAB PO SCH (21:00)
[2016-08-29] MEDS: LACTOBACILLUS ACIDOPHILUS (FLORANEX) TAB PO SCH (21:00)
[2016-08-29] MEDS: CETIRIZINE HCL 10 MG TAB PO SCH (21:04)
[2016-08-29] MEDS: EZETIMIBE 10MG TAB PO SCH (21:05)
[2016-08-30 00:54] VITALS: BP 137/75; PULSE 75; TEMP 36.7; O2SAT 95
[2016-08-30] MEDS: ACETAMINOPHEN 325 MG TAB PO PRN ×2 (03:20→21:41)
[2016-08-30] MEDS: ONDANSETRON INJ 2 MG/ML 2 ML VIAL IV PRN ×3 (03:20→20:15)
[2016-08-30 07:29] VITALS: BP 147/83; PULSE 72; TEMP 36.5; O2SAT 93
[2016-08-30] MEDS: RANITIDINE HCL 150 MG TAB PO SCH ×2 (08:00→19:48)
--- NOTE | 2016-08-30 08:45 | Gastroenterology Progress Note ---
Progress Note Date of Service: Aug 30, 2016 Subjective Pt evaluation today including: conversation w/ patient, physical exam, chart review, lab review, review of studies, review of inpatient medication list Ms. Grace is a 81 yr old female admitted for blood in her ostomy bag. She has also had nausea, generalized weakness, migratory abdominal pain. Today she "feels better," appears well, is sitting up in bed w/o assistance. Nausea is much better, but thought the carafate caused fullness/discomfort and headache. There continues to be increased redness of the stoma and bright red blood in the ostomy bag, separate from brown thick stool. Review of Systems Constitutional: No fever ENT: No hearing loss Respiratory: No cough Cardiac: No chest pain Abdomen: + pain ("twinge today"), + nausea (much improved), + GI bleeding, No diarrhea, No constipation Female : No dysuria Neuro: No memory loss Psych: No depression symptoms Heme: + abnormal bleeding/bruising (none except GI) Endo: + fatigue (much improved) Skin: No rash Medications Current Inpatient Medications Medications (Trade) Dose Ordered Sig/Jonas Route Start Time Stop Time Status Last Admin Dose Admin Ioversol (Optiray 320) 125 ml UD PRN IV 08/28/16 12:15 09/01/16 12:14 Acetaminophen (Tylenol Tab) 650 mg Q4H PRN PO 08/28/16 15:00 09/27/16 14:59 08/30/16 03:20 650 MG Ondansetron HCl (Zofran Inj) 4 mg Q6H PRN IV 08/28/16 15:00 09/27/16 14:59 08/30/16 03:20 4 MG Ascorbic Acid (Vitamin C Tab) 500 mg DAILY PO 08/29/16 08:00 09/28/16 08:59 Cetirizine HCl (zyrTEC TAB) 5 mg QPM PO 08/28/16 21:00 09/27/16 20:59 08/29/16 21:04 5 MG Cholecalciferol (Vitamin D Tab) 2,000 inter.unit QPM PO 08/28/16 21:00 09/27/16 20:59 EZETIMIBE (Zetia Tab) 10 mg QPM PO 08/28/16 21:00 09/27/16 20:59 08/29/16 21:05 10 MG Acetaminophen/ Hydrocodone Bitart ([place] 5/325 Tab) 1 tab Q6H PRN PO 08/28/16 15:00 09/11/16 14:59 Losartan Potassium (coZAAR TAB) 50 mg DAILY PO 08/29/16 08:00 09/28/16 08:59 08/29/16 07:50 50 MG Multivitamins (Multivitamin Tab) 1 tab DAILY PO 08/29/16 08:00 09/28/16 08:59 Calcium Carbonate (oS-Shree 500 TAB) 1,250 mg Q2D@0900 PO 08/29/16 09:00 09/28/16 08:59 Lactobacillus Acidophilus (Floranex Tab) 4 tab HS PO 08/28/16 21:00 09/27/16 20:59 Miscellaneous (Iv Fluids Completed) 1 ea PRN PRN N/A 08/28/16 15:30 08/28/17 15:29 Promethazine HCl 12.5 mg/Sodium Chloride 50.5 ml @ 204 mls/hr Q6H PRN IV 08/28/16 20:15 09/27/16 20:14 Ranitidine HCl (zANTac TAB) 150 mg BID PO 08/29/16 08:00 09/28/16 07:59 08/29/16 21:02 150 MG Pantoprazole Sodium (Protonix Tab) 40 mg BID PO 08/29/16 20:00 09/28/16 19:59 Sucralfate (Carafate Susp) 1 gm QID PO 08/29/16 17:00 09/28/16 16:59 08/29/16 17:06 1 GM Ciprofloxacin (Cipro Tab) 500 mg BID PO 08/29/16 20:00 09/03/16 19:59 08/29/16 20:54 500 MG Objective Vital Signs Date Time Temp Pulse Resp B/P (MAP) Pulse Ox O2 Delivery O2 Flow Rate FiO2 08/30/16 07:29 36.5 72 18 147/83 (104) 93 Room Air 08/30/16 00:54 36.7 75 20 137/75 (95) 95 Room Air 08/30/16 00:00 Room Air 08/29/16 20:00 Room Air 08/29/16 16:00 Room Air 08/29/16 15:42 36.4 84 16 120/77 (91) 94 Room Air 08/29/16 08:30 Room Air Physical Exam General Appearance: no apparent distress Neck: thyroid normal Respiratory/Chest: normal breath sounds, + crackles (possible few fine crackles in the right base) Cardiovascular: no murmur Abdomen: non tender, soft, + pertinent finding (ostomy with increased redness of the tissue but no obvious bleeding from the ostomy) Extremities: normal inspection Neurologic/Psych: alert, normal mood/affect, oriented x 3 Skin: normal color, no jaundice Laboratory Results Hb/Hct, BUN ordered this morning. Assessment and Plan 1. Ostomy/stoma care consult ordered yesterday ? bleeding from the stoma, around the stoma, from the pouch prior to the stoma? 2. Will check Hb/Hct, BUN this morning. 3. Regular diet. 4. Pt would like to avoid endoscopy if possible. 5. Carafate was given for upper abd discomfort. Pt felt it caused side effects, will DC. Will continue BID PPI and Ranitidine for now but would DC PPI on discharge. I have seen, examined this patient and agree with the plan and exam as outlined above by LENNIE Denise. -clinically improved -echo normal
[2016-08-30] MEDS: SUCRALFATE 1 GM/10 ML UDC PO SCH ×2 (09:16→11:02)
[2016-08-30] MEDS: MULTIVITAMIN TAB PO SCH (09:16)
[2016-08-30] MEDS: PANTOprazole SOD 40 MG TAB PO SCH ×2 (09:17→19:49)
[2016-08-30] MEDS: LOSARTAN POTASSIUM 50 MG TAB PO SCH (09:20)
[2016-08-30 09:21] LABS: HEMATOCRIT 41.6 % (37-47)
[2016-08-30] MEDS: CIPROFLOXACIN 500 MG TAB PO SCH ×2 (09:21→19:47)
[2016-08-30] MEDS: ASCORBIC ACID 500 MG TAB PO SCH (09:21)
--- NOTE | 2016-08-30 13:41 | Hospitalist Progress Note ---
Hospitalist Progress Note Date of Service Aug 30, 2016. Subjective Pt evaluation today including: conversation w/ patient, physical exam, chart review, lab review, review of studies, review of inpatient medication list Patient seen and evaluated. Reports feeling "half improved" but not her normal self. Continues to intermittently refuse medications and had long conversation on the importance of these to help with her symptoms. Evaluation of stoma reveals a lot of inflammation which is likely the source of bleeding. Reporting urinary symptoms are resolving. Reports fear of walking alone and concerns for falling. Discussed with nursing staff that she has been stable and ambulating with devices well. Continues to express that she feels that she just had too many procedures and things going on at once and expresses multiple ongoing stress. Evaluated patient with GI at bedside and discussed plan. Patient reports the carafate makes her feel like there is a "brick" in her stomach and agreed to stop this. States she woke up with nausea that she thinks if from the cipro. She does fixate on every somatic issue. Stool remains formed. Will update daughter later today. Constitutional: + fatigue, No fever, No chills Respiratory: No cough, No shortness of breath Cardiovascular: No chest pain, No palpitations Abdomen: + nausea (This AM but resolved with Zofran), No pain, No vomiting, No diarrhea, No constipation Musculoskeletal: No swelling, No calf pain Female : No dysuria Medications Current Inpatient Medications Medications (Trade) Dose Ordered Sig/Jonas Route Start Time Stop Time Status Last Admin Dose Admin Ioversol (Optiray 320) 125 ml UD PRN IV 08/28/16 12:15 09/01/16 12:14 Acetaminophen (Tylenol Tab) 650 mg Q4H PRN PO 08/28/16 15:00 09/27/16 14:59 08/30/16 03:20 650 MG Ondansetron HCl (Zofran Inj) 4 mg Q6H PRN IV 08/28/16 15:00 09/27/16 14:59 08/30/16 09:19 4 MG Ascorbic Acid (Vitamin C Tab) 500 mg DAILY PO 08/29/16 08:00 09/28/16 08:59 08/30/16 09:21 500 MG Cetirizine HCl (zyrTEC TAB) 5 mg QPM PO 08/28/16 21:00 09/27/16 20:59 08/29/16 21:04 5 MG Cholecalciferol (Vitamin D Tab) 2,000 inter.unit QPM PO 08/28/16 21:00 09/27/16 20:59 EZETIMIBE (Zetia Tab) 10 mg QPM PO 08/28/16 21:00 09/27/16 20:59 08/29/16 21:05 10 MG Acetaminophen/ Hydrocodone Bitart ([place] 5/325 Tab) 1 tab Q6H PRN PO 08/28/16 15:00 09/11/16 14:59 Losartan Potassium (coZAAR TAB) 50 mg DAILY PO 08/29/16 08:00 09/28/16 08:59 08/30/16 09:20 50 MG Multivitamins (Multivitamin Tab) 1 tab DAILY PO 08/29/16 08:00 09/28/16 08:59 Calcium Carbonate (oS-Shree 500 TAB) 1,250 mg Q2D@0900 PO 08/29/16 09:00 09/28/16 08:59 Lactobacillus Acidophilus (Floranex Tab) 4 tab HS PO 08/28/16 21:00 09/27/16 20:59 Miscellaneous (Iv Fluids Completed) 1 ea PRN PRN N/A 08/28/16 15:30 08/28/17 15:29 Promethazine HCl 12.5 mg/Sodium Chloride 50.5 ml @ 204 mls/hr Q6H PRN IV 08/28/16 20:15 09/27/16 20:14 Ranitidine HCl (zANTac TAB) 150 mg BID PO 08/29/16 08:00 09/28/16 07:59 08/29/16 21:02 150 MG Pantoprazole Sodium (Protonix Tab) 40 mg BID PO 08/29/16 20:00 09/28/16 19:59 Sucralfate (Carafate Susp) 1 gm QID PO 08/29/16 17:00 09/28/16 16:59 08/29/16 17:06 1 GM Ciprofloxacin (Cipro Tab) 500 mg BID PO 08/29/16 20:00 09/03/16 19:59 08/30/16 09:21 500 MG Objective Vital Signs Date Time Temp Pulse Resp B/P (MAP) Pulse Ox O2 Delivery O2 Flow Rate FiO2 08/30/16 08:00 Room Air 08/30/16 07:29 36.5 72 18 147/83 (104) 93 Room Air 08/30/16 00:54 36.7 75 20 137/75 (95) 95 Room Air 08/30/16 00:00 Room Air 08/29/16 20:00 Room Air 08/29/16 16:00 Room Air 08/29/16 15:42 36.4 84 16 120/77 (91) 94 Room Air Physical Exam General Appearance: WD/WN, no apparent distress Eyes: sclerae normal ENT: hearing grossly normal Neck: supple, no JVD, trachea midline Respiratory/Chest: lungs clear, normal breath sounds, no respiratory distress, no accessory muscle use Cardiovascular: regular rate, rhythm, no gallop, no murmur Abdomen: normal bowel sounds, non tender, soft, + pertinent finding (LLQ Ostomy with minimal stool in bag; stoma beefy red) Extremities: no pedal edema, no calf tenderness Neurologic/Psychiatric: alert, oriented x 3 Skin: normal color, warm/dry Laboratory Results Last 24 Hours Test 08/30/16 09:01 Hemoglobin 13.3 g/dL Hematocrit 41.6 % Blood Urea Nitrogen 12 mg/dl Assessment and Plan Ms. Grace is a 81 y/o female who presents with loose stool, GI bleed in colostomy , and chronic nausea GI Bleed/Loose Stool/Nausea with Colostomy: - Hgb remains stable; intermittently refusing medications and did discuss mechanism of these medications and purpose to improve symptoms -- Patient also reports she is noticing improvement but emphasized the importance of taking them as prescribed to continue to improve symptoms - Zofran and Phenergan - Tolerating advanced diet - D/C Carafate as she reports this feels "like a brick" in her stomach - GI Consultation - present for discussion with GI at bedside again today -- Plan to incorporate PPI BID and continue Zantac for GERD symptoms -- Wound care to assess ostomy - visualized stoma and internally with evidence of significant inflammation Generalized Fatigue: IMPROVING - Expresses fatigue since July when all these symptoms started and expresses "its been too much" in reference to ongoing testing and procedures - Echo - EF 60-65%; no wall motion abnormalities UTI: - No culture sent from ED sample - Refused Macrobid due to GI upset - will switch to Ciprofloxacin 500 mg BID -- Since urinary symptoms are improving will only treat with a 3 day regimen and monitor response HTN: STABLE - Losartan 50 mg daily Hyperlipidemia: - Zetia 10 mg daily Peripheral Neuropathy: - Gabapentin 200 mg at night Spherocytosis and Chronic Thrombocytosis S/P Splenectomy: STABLE DVT Prophylaxis: SCDs; avoid chemical prophylaxis due to GI bleeding Code Status: FULL RESUSCITATION Disposition: - Reporting generalized fatigue and not feeling completely her self but expressing improvement - hopeful for D/C tomorrow - Did request PT eval - nursing staff has been ambulating with her and reporting she ambulates well however patient expresses fear of ambulating alone - Will call daughter later today to update Discharge planning: home
[2016-08-30 16:14] VITALS: BP 147/80; PULSE 79; TEMP 36.3; O2SAT 96
[2016-08-30] MEDS: EZETIMIBE 10MG TAB PO SCH (19:48)
[2016-08-30] MEDS: LACTOBACILLUS ACIDOPHILUS (FLORANEX) TAB PO SCH (19:48)
[2016-08-30] MEDS: CETIRIZINE HCL 10 MG TAB PO SCH (19:48)
[2016-08-30] MEDS: CHOLECALCIFEROL 1000 INTER.UNIT TAB PO SCH (19:49)
[2016-08-30 23:25] VITALS: BP 153/81; PULSE 75; TEMP 36.6; O2SAT 95
[2016-08-31 07:01] LABS: HEMATOCRIT 38.7 % (37-47); MEAN CELL VOLUME 94.4 fL (80-100); MEAN CORPUSCULAR HGB CONC 32.8 g/dl (32-36); MEAN PLATELET VOLUME 9.5 fL (7.4-10.4); PLATELET COUNT 469 K/uL (130-400); WHITE BLOOD COUNT 6.52 K/uL (4.8-10.8)
[2016-08-31 07:27] VITALS: BP 176/94; PULSE 67; TEMP 36.5; O2SAT 97
[2016-08-31 07:39] LABS: BUN/CREATININE RATIO 12.7 (10-20); CALCIUM 8.7 mg/dl (8.5-10.1); POTASSIUM 3.9 mmol/L (3.5-5.1)
[2016-08-31] MEDS: CIPROFLOXACIN 500 MG TAB PO SCH (08:26)
[2016-08-31] MEDS: LOSARTAN POTASSIUM 50 MG TAB PO SCH (08:26)
[2016-08-31] MEDS: MULTIVITAMIN TAB PO SCH (08:27)
[2016-08-31] MEDS: RANITIDINE HCL 150 MG TAB PO SCH (08:27)
[2016-08-31] MEDS: ASCORBIC ACID 500 MG TAB PO SCH (08:27)
[2016-08-31] MEDS: CALCIUM CARBONATE 1250MG TAB PO SCH (08:27)
[2016-08-31] MEDS: PANTOprazole SOD 40 MG TAB PO SCH (08:30)
[2016-08-31] MEDS ORDERED: POLYETHYLENE (MIRALAX) 17 GM PACK PO ONE (10:00)
[2016-08-31] MEDS ORDERED: DICYCLOMINE HCL 20 MG TAB PO PRN (10:45)
[2016-08-31] MEDS ORDERED: ONDA4TAB10 SL (11:21)
[2016-08-31] MEDS ORDERED: ZNT150 PO (11:21)
[2016-08-31] MEDS ORDERED: BNT20 PO (11:21)
--- NOTE | 2016-08-31 11:27 | Discharge Instructions ---
Discharge Instructions Date of Service Aug 31, 2016. Admission Reason for Admission: Diarrhea, Gi Bleeding Discharge Discharge Diagnosis / Problem: Abdominal Pain and Blood in Ostomy Discharge Goals Goal(s): Decrease discomfort, Improve function, Increase independence Activity Recommendations Activity Limitations: resume your previous activity . Instructions / Follow-Up Instructions / Follow-Up Blood in Stool/Ostomy with Loose Stool and Nausea: - Your blood counts have remained stable which is a good sign. It looks like the stoma and area inside the stoma has irritation and this could be from recent illness. -- There is a chance this is a post-infection irritation and will take some time to improve. Some reassuring signs are that your nausea is improving and the stool is becoming more form. - Recommend continuing a diet that is easy on the stomach. Avoid acidic foods ( tomatoes, citrus fruits). Make sure to eat meals sitting up and at least 30 minutes after eating. - It will take time to recover from this and will need to rest. It is likely that you did develop an illness, most likely viral, which caused diarrhea and irritation in the stomach. Follow-Up: - Please see your family doctor next week. An appointment was made for you. - Please continue to follow with Janet SOLANO for ongoing evaluation. Current Hospital Diet Patient's current hospital diet: AHA Diet (Heart Healthy) Discharge Diet Recommended Diet: AHA Diet (Heart Healthy) Pending Studies Studies pending at discharge: no Medical Emergencies . Who to Call and When: Medical Emergencies: If at any time you feel your situation is an emergency, please call 911 immediately. . Non-Emergent Contact Non-Emergency issues call your: Primary Care Provider Call Non-Emergent contact if: you have a fever, your pain is concerning you, you have any medication questions . . "Provider Documentation" section prepared by Meg Mcmanus. . VTE Core Measure Inpt VTE Proph given/why not?: SCD's
--- NOTE | 2016-08-31 11:49 | Gastroenterology Progress Note ---
Progress Note Date of Service: Aug 31, 2016 Subjective Pt evaluation today including: conversation w/ patient, physical exam, chart review, lab review, review of inpatient medication list Pt reports rounded stools like "meatballs", which may be a little hard. She was previously taking Miralax 17g daily at home until 08/07 when she had loose stools from her stoma. No more signs of blood out of stoma. She was having "twitches" of discomfort on RLQ area. Tolerating regular diet well w/o n/v, pain. Stool cx and Cdiff negative. Review of Systems Constitutional: No fever, No chills Respiratory: No cough, No shortness of breath Cardiac: No chest pain Abdomen: + see HPI, + constipation, No pain, No nausea, No vomiting, No GI bleeding Medications Current Inpatient Medications Medications (Trade) Dose Ordered Sig/Jonas Route Start Time Stop Time Status Last Admin Dose Admin Ioversol (Optiray 320) 125 ml UD PRN IV 08/28/16 12:15 09/01/16 12:14 Acetaminophen (Tylenol Tab) 650 mg Q4H PRN PO 08/28/16 15:00 09/27/16 14:59 08/30/16 21:41 650 MG Ondansetron HCl (Zofran Inj) 4 mg Q6H PRN IV 08/28/16 15:00 09/27/16 14:59 08/30/16 20:15 4 MG Ascorbic Acid (Vitamin C Tab) 500 mg DAILY PO 08/29/16 08:00 09/28/16 08:59 08/31/16 08:27 500 MG Cetirizine HCl (zyrTEC TAB) 5 mg QPM PO 08/28/16 21:00 09/27/16 20:59 08/30/16 19:48 5 MG Cholecalciferol (Vitamin D Tab) 2,000 inter.unit QPM PO 08/28/16 21:00 09/27/16 20:59 EZETIMIBE (Zetia Tab) 10 mg QPM PO 08/28/16 21:00 09/27/16 20:59 08/30/16 19:48 10 MG Acetaminophen/ Hydrocodone Bitart ([place] 5/325 Tab) 1 tab Q6H PRN PO 08/28/16 15:00 09/11/16 14:59 Losartan Potassium (coZAAR TAB) 50 mg DAILY PO 08/29/16 08:00 09/28/16 08:59 08/31/16 08:26 50 MG Multivitamins (Multivitamin Tab) 1 tab DAILY PO 08/29/16 08:00 09/28/16 08:59 08/31/16 08:27 1 TAB Calcium Carbonate (oS-Shree 500 TAB) 1,250 mg Q2D@0900 PO 08/29/16 09:00 09/28/16 08:59 Lactobacillus Acidophilus (Floranex Tab) 4 tab HS PO 08/28/16 21:00 09/27/16 20:59 08/30/16 19:48 4 TAB Miscellaneous (Iv Fluids Completed) 1 ea PRN PRN N/A 08/28/16 15:30 08/28/17 15:29 Promethazine HCl 12.5 mg/Sodium Chloride 50.5 ml @ 204 mls/hr Q6H PRN IV 08/28/16 20:15 09/27/16 20:14 Ranitidine HCl (zANTac TAB) 150 mg BID PO 08/29/16 08:00 09/28/16 07:59 08/31/16 08:27 150 MG Pantoprazole Sodium (Protonix Tab) 40 mg BID PO 08/29/16 20:00 09/28/16 19:59 Ciprofloxacin (Cipro Tab) 500 mg BID PO 08/29/16 20:00 09/03/16 19:59 08/31/16 08:26 500 MG Polyethylene (Miralax Powder Packet) 8.5 gm DAILY PO 09/01/16 08:00 10/01/16 07:59 Dicyclomine HCl (Bentyl Tab) 5 mg TID PRN PO 08/31/16 10:45 09/30/16 10:44 08/31/16 11:04 5 MG Objective Vital Signs Date Time Temp Pulse Resp B/P (MAP) Pulse Ox O2 Delivery O2 Flow Rate FiO2 08/31/16 10:18 Room Air 08/31/16 07:27 36.5 67 18 176/94 (121) 97 Room Air 08/31/16 00:00 Room Air 08/30/16 23:25 36.6 75 18 153/81 (105) 95 Room Air 7/25/17 16:14 36.3 79 20 147/80 (102) 96 08/30/16 16:00 Room Air Physical Exam General Appearance: WD/WN, no apparent distress Eyes: normal inspection, PERRL, EOMI Neck: supple, no JVD, trachea midline Respiratory/Chest: normal breath sounds, no respiratory distress, no accessory muscle use Cardiovascular: regular rate, rhythm, no gallop, no murmur Abdomen: normal bowel sounds, non tender, soft, + pertinent finding (Ostomy on LLQ area pink, moist, no blood or stool in bag) Extremities: normal inspection, no pedal edema, no calf tenderness Neurologic/Psych: alert, normal mood/affect, oriented x 3 Skin: normal color, no jaundice, no rash Laboratory Results Last 24 Hours Test 08/31/16 06:18 White Blood Count 6.52 K/uL Red Blood Count 4.10 M/uL Hemoglobin 12.7 g/dL Hematocrit 38.7 % Mean Corpuscular Volume 94.4 fL Mean Corpuscular Hemoglobin 31.0 pg Mean Corpuscular Hemoglobin Concent 32.8 g/dl RDW Standard Deviation 48.2 fL RDW Coefficient of Variation 14.1 % Platelet Count 469 K/uL Mean Platelet Volume 9.5 fL Sodium Level 140 mmol/L Potassium Level 3.9 mmol/L Chloride Level 104 mmol/L Carbon Dioxide Level 30 mmol/L Anion Gap 6.0 mmol/L Blood Urea Nitrogen 13 mg/dl Creatinine 1.00 mg/dl Est Creatinine Clear Calc Drug Dose 44.6 ml/min Estimated GFR () 62.1 Estimated GFR (Non- 53.5 BUN/Creatinine Ratio 12.7 Random Glucose 99 mg/dl Calcium Level 8.7 mg/dl Assessment and Plan Pt is a 81 y/o female w c/o bleeding from her ostomy site. Hgb at 12.7 today. Previously had colonoscopy by Dr. Doss at end of June for rectal bleeding found to have colitis and ulcer at bx tissue in rectum area. Rectal bleeding has resolved. CT abd/pelvis w signs of diverticulosis but no acute etiology for GI bleeding. She did have loose stools around 7/2 ? viral gastroenteritis. Cdiff , Cx negative. Giardia and Novovirus pending. Her stools are now slightly hard, ball like, and no more blood from stoma. - Start Miralax 8.5g daily - Trial Dicyclomine 5mg TID prn abd cramping - She had declined repeat colonoscopy or EGD. H/H also stable, no more signs of GI bleeding. - Will sign off, no further GI recs I have seen, examined, and agree with the plan as outlined above by LENNIE Andrew. -soft abdomen -concern for viral infection -clinically improved -HB stable.
[2016-08-31 15:14] VITALS: BP 166/84; PULSE 76; TEMP 36.4; O2SAT 95
--- NOTE | 2016-08-31 15:53 | Hospitalist Progress Note ---
Hospitalist Progress Note Date of Service Aug 31, 2016. Subjective Pt evaluation today including: conversation w/ patient, physical exam, chart review, lab review, review of studies, review of inpatient medication list Patient seen and evaluated. No acute events overnight. Reports she continues to improve but not baseline. Still reports generalized fatigue but is improving. Updated at bedside and thoroughly discussed findings and considerations of current clinical course. She still intermittently refuses medications and did reinforce the importance of following recommendations and to discuss concerns before choosing to D/C medications Constitutional: No fever, No chills Respiratory: No shortness of breath Cardiovascular: No chest pain Abdomen: + pain (cramping), No nausea, No vomiting, No diarrhea Musculoskeletal: No swelling, No calf pain Female : No dysuria Medications Current Inpatient Medications Medications (Trade) Dose Ordered Sig/Jonas Route Start Time Stop Time Status Last Admin Dose Admin Ioversol (Optiray 320) 125 ml UD PRN IV 08/28/16 12:15 09/01/16 12:14 Acetaminophen (Tylenol Tab) 650 mg Q4H PRN PO 08/28/16 15:00 09/27/16 14:59 08/30/16 21:41 650 MG Ondansetron HCl (Zofran Inj) 4 mg Q6H PRN IV 08/28/16 15:00 09/27/16 14:59 08/30/16 20:15 4 MG Ascorbic Acid (Vitamin C Tab) 500 mg DAILY PO 08/29/16 08:00 09/28/16 08:59 08/31/16 08:27 500 MG Cetirizine HCl (zyrTEC TAB) 5 mg QPM PO 08/28/16 21:00 09/27/16 20:59 08/30/16 19:48 5 MG Cholecalciferol (Vitamin D Tab) 2,000 inter.unit QPM PO 08/28/16 21:00 09/27/16 20:59 EZETIMIBE (Zetia Tab) 10 mg QPM PO 08/28/16 21:00 09/27/16 20:59 08/30/16 19:48 10 MG Acetaminophen/ Hydrocodone Bitart ([place] 5/325 Tab) 1 tab Q6H PRN PO 08/28/16 15:00 09/11/16 14:59 Losartan Potassium (coZAAR TAB) 50 mg DAILY PO 08/29/16 08:00 09/28/16 08:59 08/31/16 08:26 50 MG Multivitamins (Multivitamin Tab) 1 tab DAILY PO 08/29/16 08:00 09/28/16 08:59 08/31/16 08:27 1 TAB Calcium Carbonate (oS-Shree 500 TAB) 1,250 mg Q2D@0900 PO 08/29/16 09:00 09/28/16 08:59 Lactobacillus Acidophilus (Floranex Tab) 4 tab HS PO 08/28/16 21:00 09/27/16 20:59 08/30/16 19:48 4 TAB Miscellaneous (Iv Fluids Completed) 1 ea PRN PRN N/A 08/28/16 15:30 08/28/17 15:29 Promethazine HCl 12.5 mg/Sodium Chloride 50.5 ml @ 204 mls/hr Q6H PRN IV 08/28/16 20:15 09/27/16 20:14 Ranitidine HCl (zANTac TAB) 150 mg BID PO 08/29/16 08:00 09/28/16 07:59 08/31/16 08:27 150 MG Pantoprazole Sodium (Protonix Tab) 40 mg BID PO 08/29/16 20:00 09/28/16 19:59 Ciprofloxacin (Cipro Tab) 500 mg BID PO 08/29/16 20:00 09/03/16 19:59 08/31/16 08:26 500 MG Polyethylene (Miralax Powder Packet) 8.5 gm DAILY PO 09/01/16 08:00 10/01/16 07:59 Dicyclomine HCl (Bentyl Tab) 5 mg TID PRN PO 08/31/16 10:45 09/30/16 10:44 08/31/16 11:04 5 MG Objective Vital Signs Date Time Temp Pulse Resp B/P (MAP) Pulse Ox O2 Delivery O2 Flow Rate FiO2 08/31/16 15:14 36.4 76 18 166/84 (111) 95 Room Air 08/31/16 10:18 Room Air 08/31/16 07:27 36.5 67 18 176/94 (121) 97 Room Air 08/31/16 00:00 Room Air 08/30/16 23:25 36.6 75 18 153/81 (105) 95 Room Air 08/30/16 16:14 36.3 79 20 147/80 (102) 96 08/30/16 16:00 Room Air Physical Exam General Appearance: WD/WN, no apparent distress Eyes: sclerae normal ENT: hearing grossly normal Neck: supple, no JVD, trachea midline Respiratory/Chest: lungs clear, normal breath sounds, no respiratory distress, no accessory muscle use Cardiovascular: regular rate, rhythm, no gallop, no murmur Abdomen: normal bowel sounds, non tender, soft, + pertinent finding (LLQ colostomy) Extremities: no pedal edema, no calf tenderness Neurologic/Psychiatric: alert, oriented x 3 Skin: normal color, warm/dry Laboratory Results Last 24 Hours Test 08/31/16 06:18 White Blood Count 6.52 K/uL Red Blood Count 4.10 M/uL Hemoglobin 12.7 g/dL Hematocrit 38.7 % Mean Corpuscular Volume 94.4 fL Mean Corpuscular Hemoglobin 31.0 pg Mean Corpuscular Hemoglobin Concent 32.8 g/dl RDW Standard Deviation 48.2 fL RDW Coefficient of Variation 14.1 % Platelet Count 469 K/uL Mean Platelet Volume 9.5 fL Sodium Level 140 mmol/L Potassium Level 3.9 mmol/L Chloride Level 104 mmol/L Carbon Dioxide Level 30 mmol/L Anion Gap 6.0 mmol/L Blood Urea Nitrogen 13 mg/dl Creatinine 1.00 mg/dl Est Creatinine Clear Calc Drug Dose 44.6 ml/min Estimated GFR () 62.1 Estimated GFR (Non- 53.5 BUN/Creatinine Ratio 12.7 Random Glucose 99 mg/dl Calcium Level 8.7 mg/dl Assessment and Plan Ms. Grace is a 81 y/o female who presents with loose stool, GI bleed in colostomy , and chronic nausea GI Bleed/Loose Stool/Nausea with Colostomy: IMPROVING - Hgb remains stable; no further blood in stool; intermittent nausea but improving - Antiemetics PRN - GI signed off - gave recommendations for Zantac and Bentyl PRN Generalized Fatigue: IMPROVING - Expresses fatigue since July when all these symptoms started and expresses "its been too much" in reference to ongoing testing and procedures - Echo - EF 60-65%; no wall motion abnormalities UTI: - No culture sent from ED sample - Will finish with Cipro dose tonight and D/C HTN: STABLE - Losartan 50 mg daily Hyperlipidemia: - Zetia 10 mg daily Peripheral Neuropathy: - Gabapentin 200 mg at night Spherocytosis and Chronic Thrombocytosis S/P Splenectomy: STABLE DVT Prophylaxis: SCDs; avoid chemical prophylaxis due to GI bleeding Code Status: FULL RESUSCITATION Disposition: - Plan for discharge tomorrow Discharge planning: home
[2016-08-31] MEDS: ACETAMINOPHEN 325 MG TAB PO PRN (16:24)
[2016-08-31 17:04] VITALS: BP 166/84; PULSE 76; TEMP 36.4; O2SAT 95
[2016-09-01] MEDS ORDERED: POLYETHYLENE (MIRALAX) 17 GM PACK PO SCH (08:00)
--- NOTE | 2016-09-01 15:03 | Discharge Summary ---
Discharge Summary Date of Service Sep 01, 2016. 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 HTN 2. Hereditary Spherocytosis S/P Splenectomy 3. H/O L Breast CA S/P Lumpectomy and XRT 4. Ventral Hernia 5. Diverticulosis 6. Colectomy S/P Colostomy 7. Section x 4 8. S/P Cholecystectomy Immunizations: Have You Had Influenza Vaccine: N/A History of Tetanus Vaccine?: Unknown History of Pneumococcal: Yes History of Hepatitis B Vaccine: Unknown Procedures: CT ABD/PELVIS IV CONTRAST ONLY FINDINGS: Lower chest: There is by basilar subpleural reticulation, likely atelectatic. Liver: No focal hepatic masses are visualized. There are mildly prominent central intrahepatic ducts, unchanged the prior study Gallbladder: Surgically absent Spleen: Not visualized Pancreas: No masses are visualized. There is stable mild dilatation of the pancreatic duct within the head of the pancreas Adrenal glands: Unremarkable. Kidneys: There is symmetric renal cortical enhancement. The kidneys are normal in size without hydronephrosis. Bowel: Postsurgical changes are visualized within the colon. 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 There is a left lower quadrant colostomy. There is colonic diverticulosis. No acute peridiverticular inflammatory changes are visualized. There is a ventral hernia containing colonic loops. There is no evidence of acute appendicitis. Peritoneum: There is no intraperitoneal free air or abdominal ascites. Vasculature: The abdominal aorta is normal in course and caliber. Adenopathy: There is bladder wall thickening with mild infiltration of fat surrounding the bladder. Pelvic viscera: The bladder, and pelvic viscera are unremarkable. Skeletal structures: No destructive osseous lesions are seen. IMPRESSION: 1. Postsurgical changes with a left lower quadrant ostomy. There is a small parastomal hernia 2. Ventral hernia containing colon. 3. Diverticulosis. No evidence of acute diverticulitis 4. No evidence of bowel obstruction. No evidence of free air 5. Bladder wall thickening with mild infiltration of the surrounding fat. Correlation with urinalysis is recommended to exclude a cystitis 6. Stable mild dilatation of the pancreatic duct within the head of the pancreas Consultations: 1. [facility] Medication Reconciliation New Medications: Dicyclomine HCl (Dicyclomine HCl) 20 Mg Tab 5 MG PO TID PRN for cramping for 14 Days, #42 TAB Ranitidine HCl (Ranitidine HCl) 150 Mg Tab 150 MG PO BID for 14 Days, #28 TAB Continued Medications: Ascorbic Acid (Vitamin C) 500 Mg Tab 500 MG PO DAILY Calcium (Calcium) 600 Mg Tab 600 MG PO Q2D Cetirizine (Zyrtec) 10 Mg Tab 5 MG PO QPM, TAB Cholecalciferol (Vitamin D 1000 Unit) 1,000 Unit Cap 2000 INTER.UNIT PO QPM, CAP Ezetimibe (Zetia) 10 Mg Tab 10 MG PO QPM, TAB Hydrocodone/Acetaminophen 5MG/325MG (Lindsay 5MG/325MG) Tab 0.5 TABLET PO HS PRN for Pain, TAB PRN PAIN Losartan Potassium (Cozaar) 50 Mg Tab 50 MG PO DAILY, TAB Multivitamin (Multivitamin) Tab 1 TAB PO DAILY, 0 Refills Ondasetron Odt (Zofran Odt) 4 Mg Tab 4 MG SL Q6H for Nausea, #10 TAB (This prescription has been renewed) Polyethylene Glycol 3350 (Miralax) 1 Pow Pow 17 GM PO DAILY PRN for Constipation, GM Probiotic Product (Probiotic) 1 Cap Cap 1 CAP PO QPM Discharge Exam REVIEW OF SYSTEMS: Constitutional: No fever, No chills Respiratory: No shortness of breath Cardiovascular: No chest pain Abdomen: + pain (cramping), No nausea, No vomiting, No diarrhea Musculoskeletal: No swelling, No calf pain Female : No dysuria PHYSICAL EXAMINATION: General Appearance: WD/WN, no apparent distress Eyes: sclerae normal ENT: hearing grossly normal Neck: supple, no JVD, trachea midline Respiratory/Chest: lungs clear, normal breath sounds, no respiratory distress, no accessory muscle use Cardiovascular: regular rate, rhythm, no gallop, no murmur Abdomen: normal bowel sounds, non tender, soft, + pertinent finding (LLQ colostomy) Extremities: no pedal edema, no calf tenderness Neurologic/Psychiatric: alert, oriented x 3 Skin: normal color, warm/dry Hospital Course ADMISSION: This patient is a 80-year-old female with a history of colectomy with colostomy after perforated diverticulum, hereditary spherocytosis requiring splenectomy, breast cancer, peripheral neuropathy and hypertension, who presents to the ER with nausea mostly in the morning for the last 3 weeks, along with loose stools with intermittent hematochezia in her colostomy bag. She had a CT scan at the beginning of the month that showed some nonspecific transverse colon wall thickening and was treated with Cipro and Flagyl which she took for about one week. She reports her nausea continued and she stopped the antibiotics short of the total 10 day course. She went back to her PCP who tried to get her an appointment as an outpatient with the patient ombudsperson at the soonest appointment was in late September. Patient returned to the ER on August [address] scan which didn't show anything significant. She was sent home. She returned to the ER again today with the same complaints of nausea, fatigue, and had more blood in her colostomy bag today than ever before which worried her. She has had some intermittent right lower quadrant pain that 's coming and going and feels like spasms. She denies fevers, chills, or sweats. She has developed urinary frequency and urgency over the last few days and did restart by mouth Cipro that she had left over at home twice a day for the last 2 days. Her hemoglobin has only very slightly trended downward in the last month it is still within the normal range at 12.9. She just had a colonoscopy through her ostomy bag as well as per rectum a couple of months ago with Dr. Doss and was told everything was normal. She will be admitted for observation for GI bleeding. HOSPITAL COURSE: Ms. Grace was admitted for blood in stool from pouchitis vs friable bowel, likely GERD, and possible post-infectious IBS. To treat GERD symptoms she was starting on Ranitidine with Protonix added. During admission patient intermittently refused medications even after multiple discussions with her. It is possible she may be recovering from a possible viral illness that created the loose stool and generalized fatigue but stool studies have been negative so far. Her stool has become formed and no longer experiencing diarrhea. Blood in the stool has lessened. When she was taking the Ranitidine symptoms did begin to improve and she reported less nausea and burning epigastric pain. At this time, she did not want to go through EGD or repeat colonoscopy. There was question of a possible UTI and she reported symptoms of dysuria. She was initially placed on Macrobid but reported upset stomach and refused this. She was converted to Ciprofloxacin to complete a 3 day course with all urinary symptoms resolved. GI also started Bentyl to help with cramping symptoms. Given age and reports of generalized fatigue, an echo was obtained to explore other possibilities but revealed EF 60-65% with no wall motion abnormalities and no mention of diastolic dysfunction. Imaging of the abdomen does reveal calcifications of abdominal vessels but no direct stenosis and patient would like to avoid ASA therapy as she did not tolerate this in the past. Patient has remained hemodynamically stable and blood counts remained in good range. She is optimal for discharge home. Did express the importance of following recommendations and to discuss with your PCP before discontinuing medications. Total Time Spent: Greater than 30 minutes This includes examination of the patient, discharge planning, medication reconciliation, and communication with other providers. Discharge Instructions Please refer to the electronic Patient Visit Report (Discharge Instructions) for additional information. Additional Copies To Madai Leonard C.R.N.P.
[2016-09-02 17:25] LABS: NOROVIRUS RNA** TC 19098X NOT DETECTED; O&P GIARDIA AG NOT DETECTED (NOT DETECTED)
== END 2016-08-31 17:36 | disposition home or self-care (01) | DRG 378 ==
LOC: C.EDB 11:36 → C.4E 14:52 → ENRESERV 15:06 → OBSVTOIN 08-30 14:44
PROVIDERS: ADMIT Family Medicine; ATTEND Internal Medicine
DX: K92.1 Melena (principal); K55.9 Vascular disorder of intestine, unspecified; N39.0 Urinary tract infection, site not specified; K91.850 Pouchitis; K94.09 Other complications of colostomy; K58.2 Mixed irritable bowel syndrome; Y83.2 Surgical operation with anastomosis, bypass or graft as the cause of abnormal reaction of the patient, or of later complication, without mention of misadventure at the time of the procedure; K43.9 Ventral hernia without obstruction or gangrene; K57.90 Diverticulosis of intestine, part unspecified, without perforation or abscess without bleeding; K21.9 Gastro-esophageal reflux disease without esophagitis; K30 Functional dyspepsia; T37.8X5A Adverse effect of other specified systemic anti-infectives and antiparasitics, initial encounter; R53.83 Other fatigue; I10 Essential (primary) hypertension; E78.5 Hyperlipidemia, unspecified; G62.9 Polyneuropathy, unspecified; D47.3 Essential (hemorrhagic) thrombocythemia; D58.0 Hereditary spherocytosis; E66.9 Obesity, unspecified; Z68.37 Body mass index [BMI] 37.0-37.9, adult; Z53.29 Procedure and treatment not carried out because of patient's decision for other reasons; Z91.14 Patient's other noncompliance with medication regimen; Z90.49 Acquired absence of other specified parts of digestive tract; Z90.81 Acquired absence of spleen; Z96.651 Presence of right artificial knee joint; Z79.891 Long term (current) use of opiate analgesic; Z79.899 Other long term (current) drug therapy

== ENCOUNTER 2016-09-17 04:04 | Emergency (ER) | payer OTHER, BC ==
[~2016-09-17] VITALS: Ht 152.4 cm; Wt 84.1 kg
[~2016-09-17 04:04] MED LIST changes: +BNT20 PO; +ZNT150 PO
[2016-09-17 04:09] VITALS: TEMP 36.4; Ht 152.4 cm; Wt 84.1 kg
[2016-09-17] MEDS ORDERED: DiphenhydrAMINE HCL 50 MG/ML VIAL IV STA (04:17)
[2016-09-17] MEDS ORDERED: SODIUM CHLORIDE 0.9% 1000ML 1,000 ML IV STA (04:17)
[2016-09-17] MEDS ORDERED: PROCHLORPERAZINE 5 MG/ML 2 ML VIAL IV STA (04:17)
[2016-09-17] MEDS ORDERED: KETOROLAC TROMETHAMINE 30 MG/ML VIAL IV STA (04:17)
--- NOTE | 2016-09-17 04:23 | EMERGENCY ROOM VISIT NOTE ---
History Report prepared by Amisha: Bernardo Jeff Under the Supervision of: Dr. Jese Mcelroy M.D. First contact with patient: 04:12 Chief Complaint: ILLNESS Stated Complaint: FELL BAD SINCE SHOT IN HIP,BALTAZAR,VOMITING History of Present Illness The patient is a 81 year old female who presents to the Emergency Room with complaints of a constant headache and urinary frequency starting yesterday. The patient states that she got a shot in her hip for a bursitis, and she has not felt well since then. Additionally she states that she has vomited this morning. She states that she has never had a headache like this in the past, and it is in the front radiating into her jaw. She states that she took Tylenol , and it has not helped. Source of History: patient Onset: yesterday Position: other (global) Quality: other (headache) Timing: constant Associated Symptoms: + vomiting, + urinary symptoms Review of Systems See HPI for pertinent positives & negatives. A total of 10 systems reviewed and were otherwise negative. 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 (2) History of section (3) History of lumpectomy (4) History of splenectomy Family History Hypertension Social History Smoking Status: Never Smoker Alcohol Use: none Drug Use: none Marital Status: Housing Status: lives with family Occupation Status: retired Current/Historical Medications Scheduled Ascorbic Acid (Vitamin C), 500 MG PO DAILY Calcium (Calcium), 600 MG PO Q2D Cetirizine (Zyrtec), 5 MG PO QPM Cholecalciferol (Vitamin D 1000 Unit), 2,000 INTER.UNIT PO QPM Ezetimibe (Zetia), 10 MG PO QPM Levofloxacin (Levaquin), 750 MG PO DAILY Losartan Potassium (Cozaar), 50 MG PO DAILY Multivitamin (Multivitamin), 1 TAB PO DAILY Ondasetron Odt (Zofran Odt), 4 MG SL Q6H Ondasetron Odt (Zofran Odt), 4 MG SL Q6H Probiotic Product (Probiotic), 1 CAP PO QPM Ranitidine HCl (Ranitidine HCl), 150 MG PO BID Scheduled PRN Dicyclomine HCl (Dicyclomine HCl), 5 MG PO TID PRN for cramping Hydrocodone/Acetaminophen 5MG/325MG ([place] 5MG/325MG), 0.5 TABLET PO HS PRN for Pain Polyethylene Glycol 3350 (Miralax), 17 GM PO DAILY PRN for Constipation Allergies Coded Allergies: Vancomycin (Verified Allergy, Intermediate, rash, 09/17/16) Diphenhydramine (Verified Allergy, Mild, Redness, 09/17/16) Amoxicillin (Verified Allergy, Unknown, bad reaction/glands swollen puffed up, 09/17/16) Clavulanic Acid (Verified Allergy, Unknown, 09/17/16) Codeine (Verified Allergy, Unknown, 09/17/16) Physical Exam Vital Signs Date Time Temp Pulse Resp B/P (MAP) Pulse Ox O2 Delivery O2 Flow Rate FiO2 09/17/16 05:31 177/100 09/17/16 05:14 81 14 94 09/17/16 05:09 79 16 96 09/17/16 05:00 150/117 09/17/16 04:40 82 09/17/16 04:39 81 93 09/17/16 04:34 85 94 09/17/16 04:31 175/111 09/17/16 04:31 94 Room Air 09/17/16 04:09 36.4 90 18 163/94 95 Room Air Physical Exam GENERAL: Patient is a healthy-appearing well-nourished female HEAD: Normocephalic atraumatic EYES: Ocular movements intact pupils equal and react to light OROPHARYNX mucous membranes are moist no exudates present no erythema or edema present NECK: No evidence of meningitis or encephalitis on exam. Supple no nuchal rigidity CHEST: Good equal expansion LUNGS: Clear and equal to auscultation CARDIAC: Normal S1 and S2 ABDOMEN: Soft nontender no guarding BACK: No CVA tenderness EXTREMITIES: No pain upon palpation normal muscle strength in all groups no clubbing cyanosis or edema NEURO: Patient is following commands and answering questions appropriately. Alert and oriented x3 Cranial Nerves 2-12 grossly intact Medical Decision & Procedures ER Provider Diagnostic Interpretation: X-ray results as stated below per interpretation by me: One view Chest: No evidence of pneumonia, congestion, or pneumothorax. CT results as stated below per my review and radiologist interpretation: CT HEAD: No acute intracranial abnormality identifies. Chronic small vessel ischemic disease, slightly increased compared to prior exam on 08/14/2010. Similar cerebral volume loss. Bilateral lens implants. Chronic sinusitis in the right sphenoid sinus with slightly increase expansion of the sphenoid sinus compared to prior exam in 2010. Atherosclerotic calcifications in the intracranial vasculature. Laboratory Results 09/17/16 04:35 Red Blood Count 4.27, Mean Corpuscular Volume 92.0, Mean Corpuscular Hemoglobin 30.2, Mean Corpuscular Hemoglobin Concent 32.8, Mean Platelet Volume 9.2, Neutrophils (%) (Auto) 81.6, Lymphocytes (%) (Auto) 15.6, Monocytes (%) (Auto) 2.3, Eosinophils (%) (Auto) 0.0, Basophils (%) (Auto) 0.0, Neutrophils # (Auto) 7.92, Lymphocytes # (Auto) 1.51, Monocytes # (Auto) 0.22, Eosinophils # (Auto) 0.00, Basophils # (Auto) 0.00 09/17/16 04:35 Test 09/17/16 04:26 09/17/16 04:35 Urine Color YELLOW Urine Appearance CLEAR (CLEAR) Urine pH 7.5 (4.5-7.5) Urine Specific [place] 1.018 (1.000-1.030) Urine Protein 2+ (NEG) Urine Glucose (UA) NEG (NEG) Urine Ketones TRACE (NEG) Urine Occult Blood NEG (NEG) Urine Nitrite NEG (NEG) Urine Bilirubin NEG (NEG) Urine Urobilinogen NEG (NEG) Urine Leukocyte Esterase NEG (NEG) Urine WBC (Auto) 5-10 /hpf (0-5) Urine RBC (Auto) 0-4 /hpf (0-4) Urine Hyaline Casts (Auto) 1-5 /lpf (0-5) Urine Epithelial Cells (Auto) >30 /lpf (0-5) Urine Bacteria (Auto) NEG (NEG) White Blood Count 9.70 K/uL (4.8-10.8) Red Blood Count 4.27 M/uL (4.2-5.4) Hemoglobin 12.9 g/dL (12.0-16.0) Hematocrit 39.3 % (37-47) Mean Corpuscular Volume 92.0 fL (80-100) Mean Corpuscular Hemoglobin 30.2 pg (25-34) Mean Corpuscular Hemoglobin Concent 32.8 g/dl (32-36) Platelet Count 569 K/uL (130-400) Mean Platelet Volume 9.2 fL (7.4-10.4) Neutrophils (%) (Auto) 81.6 % Lymphocytes (%) (Auto) 15.6 % Monocytes (%) (Auto) 2.3 % Eosinophils (%) (Auto) 0.0 % Basophils (%) (Auto) 0.0 % Neutrophils # (Auto) 7.92 K/uL (1.4-6.5) Lymphocytes # (Auto) 1.51 K/uL (1.2-3.4) Monocytes # (Auto) 0.22 K/uL (0.11-0.59) Eosinophils # (Auto) 0.00 K/uL (0-0.5) Basophils # (Auto) 0.00 K/uL (0-0.2) RDW Standard Deviation 46.1 fL (36.4-46.3) RDW Coefficient of Variation 13.7 % (11.5-14.5) Immature Granulocyte % (Auto) 0.5 % Immature Granulocyte # (Auto) 0.05 K/uL (0.00-0.02) Prothrombin Time 10.3 SECONDS (9.0-12.0) Prothromb Time International Ratio 1.0 (0.9-1.1) Anion Gap 8.0 mmol/L (3-11) Est Creatinine Clear Calc Drug Dose 46.2 ml/min Estimated GFR () 66.0 Estimated GFR (Non- 57.0 BUN/Creatinine Ratio 19.5 (10-20) Bedside Glucose 177 mg/dl (70-90) Calcium Level 9.0 mg/dl (8.5-10.1) Total Bilirubin 0.4 mg/dl (0.2-1) Direct Bilirubin < 0.1 mg/dl (0-0.2) Aspartate Amino Transf (AST/SGOT) 21 U/L (15-37) Alanine Aminotransferase (ALT/SGPT) 20 U/L (12-78) Alkaline Phosphatase 77 U/L (45-117) Total Creatine Kinase 65 U/L (26-192) Creatine Kinase MB 0.7 ng/ml (0.5-3.6) Creatine Kinase MB Ratio 1.1 (0-3.0) Troponin I < 0.015 ng/ml (0-0.045) Total Protein 7.7 gm/dl (6.4-8.2) Albumin 3.1 gm/dl (3.4-5.0) Thyroid Stimulating Hormone (TSH) 1.470 uIu/ml (0.300-4.500) Labs reviewed by ED physician. Medications Administered Medications (Trade) Dose Ordered Sig/Jonas Route Start Time Stop Time Status Last Admin Dose Admin Sodium Chloride 1,000 ml @ 999 mls/hr Q1H1M STAT IV 09/17/16 04:17 09/17/16 05:17 DC 09/17/16 04:36 999 MLS/HR Ketorolac Tromethamine (Toradol Inj) 15 mg NOW STAT IV 09/17/16 04:17 09/17/16 04:21 DC 09/17/16 04:36 15 MG Prochlorperazine Edisylate (Compazine Inj) 5 mg NOW STAT IV 09/17/16 04:17 09/17/16 04:21 DC 09/17/16 04:36 5 MG Promethazine HCl 25 mg/Sodium Chloride 51 ml @ 204 mls/hr NOW STAT IV 09/17/16 05:09 09/17/16 05:23 DC 09/17/16 05:23 204 MLS/HR Acetaminophen (Tylenol Tab) 1,000 mg NOW STAT PO 09/17/16 05:09 09/17/16 05:11 DC 09/17/16 05:23 1,000 MG Levofloxacin (Levaquin Tab) 500 mg NOW STAT PO 09/17/16 05:53 09/17/16 05:56 DC 09/17/16 06:03 500 MG Sodium Chloride ([place] Nasal Bryan) 2 sprays NOW ONCE NA 09/17/16 06:00 09/17/16 06:01 DC 09/17/16 06:03 225 SPRAYS Ondansetron HCl (ZOFRAN ODT 4MG Home Pack) 1 homepack UD ONCE PO 09/17/16 06:00 09/17/16 06:01 DC 09/17/16 06:10 1 HOMEPACK ECG Indication: other (headache) Rate (beats per minute): 74 Rhythm: normal sinus Findings: no acute ischemic change, no ectopy, other (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 The patient was evaluated in room B3. A complete history and physical examination was performed. 0417: Compazine Inj 5mg IV, Toradol Inj 15mg IV, Sodium Chloride 1000 ml @ 999 mls/hr IV 0509: Tylenol Tab 1000mg PO, Promethazine HCl 25mg/ Sodium Chloride 51ml @ 204ml /hr IV 0542: Upon reexamination the patient is feeling better. I discussed results and treatment plan with the patient. She verbalizes agreement and understanding. The patient is ready for discharge. 0553: Levaquin Tab 500mg PO 0600: Zofran ODT 4gm Home Pack, [place] Nasal [place] 2 sprays NA Medical Decision Differential diagnosis: Etiologies such as migraine headache, meningitis, sinusitis, CO exposure, ICH, SAH, infection, tumor, headache, sinus thrombosis, arterial dissection, as well as others were entertained. This is a 81-year-old female who presents emergency department complaining of a headache. The patient has no evidence of meningitis or encephalitis on examination however she was sent for CAT scan of the head. The patient reports that the pain came on gradually. She has had his headaches similar to this in the past. An IV was established, patient given normal saline bolus, Compazine, Toradol. She was also given Phenergan. She was sent for CAT scan of the head. I will note that the patient has a normal CBC normal renal profile normal liver profile. Based on these findings I felt that the patient can be safely discharged home for follow-up with her primary care physician. I will treat her for sinusitis and. Place the patient on Levaquin as well as nasal spray. Prior to discharge the patient was ambulated around her room as well as around the emergency department multiple times. I do feel that she is well enough to be discharged home. Patient was in agreement with the treatment plan. Medication Reconcilliation Current Medication List: was personally reviewed by me Blood Pressure Screening Patient's blood pressure: Elevated blood pressure Blood pressure disposition: Referred to PCP Impression Primary Impression: Sinusitis Scribe Attestation The scribe's documentation has been prepared under my direction and personally reviewed by me in its entirety. I confirm that the note above accurately reflects all work, treatment, procedures, and medical decision making performed by me. Departure Information Dispostion Home / Self-Care Prescriptions Ondasetron Odt (ZOFRAN ODT) 4 Mg Tab 4 MG SL Q6H for Nausea, #6 TAB Prov: Jese Mcelroy MD 09/17/16 Levofloxacin (Levaquin) 750 Mg Tab 750 MG PO DAILY for 5 Days, #5 TAB Prov: Jese Mcelroy MD 09/17/16 Referrals Madai Leonard C.R.N.P. (PCP) Forms HOME CARE DOCUMENTATION FORM, IMPORTANT VISIT INFORMATION, WORK / SCHOOL INSTRUCTIONS Patient Instructions ED Sinusitis Abx Tx, My [facility], Sinusitis Acute, Sinusitis Causes , Sinusitis Chronic, Sinusitis Prevent, Sinusitis Self Care Additional Instructions Increase fluids next 48 hours You were found to have an elevated blood pressure today (>120 sytolic or >90 diastolic). Per medicare guidelines, you need to follow up with this blood pressure screening with your Primary Care Physician (PCP). For a new PCP call [phone]. You have been examined and treated today on an emergency basis only. This is not a substitute for, or an effort to provide, complete comprehensive medical care. It is impossible to recognize and treat all injuries or illnesses in a single emergency department visit. It is therefore important that you follow up closely with your PCP. Call as soon as possible for an appointment. Thank you for your time and consideration. I look forward to speaking with you again soon. Please don't hesitate to call us if you have any questions. Problem Qualifiers Primary Impression: Sinusitis Sinusitis location: unspecified location Chronicity: unspecified Qualified Codes: J32.9 - Chronic sinusitis, unspecified
[2016-09-17 04:31] VITALS: O2SAT 94
[2016-09-17 04:57] LABS: COMPLETE YES; HEMATOCRIT 39.3 % (37-47); IG% 0.5 %; LYMPH % 15.6 %; LYMPH ABS # 1.51 K/uL (1.2-3.4); MEAN CORPUSCULAR HEMOGLOBIN 30.2 pg (25-34); MEAN CORPUSCULAR HGB CONC 32.8 g/dl (32-36); MEAN PLATELET VOLUME 9.2 fL (7.4-10.4); MONO % 2.3 %; NEUT % 81.6 %; PLATELET COUNT 569 K/uL (130-400); RED BLOOD COUNT 4.27 M/uL (4.2-5.4)
[2016-09-17 04:59] LABS: URINE APPEARANCE CLEAR (CLEAR); URINE BILIRUBIN NEG (NEG); URINE COLOR YELLOW; URINE EPITHELIAL CELL AUTO >30 /lpf (0-5); URINE NITRITE NEG (NEG); URINE PH 7.5 (4.5-7.5); URINE SPECIFIC GRAVITY 1.018 (1.000-1.030); UROBILINOGEN NEG (NEG)
[2016-09-17 05:05] LABS: MANUAL MICROSCOPIC REQUIRED? NO; REVIEW REQ? NO; SULFASALICYLIC ACID POS (NEG)
[2016-09-17 05:07] LABS: PROTHROMBIN TIME (PATIENT) 10.3 SECONDS (9.0-12.0)
[2016-09-17] MEDS ORDERED: PROMETHAZINE HCL INJ 25 MG in SODIUM CHLORIDE 0.9% 50ML 50 ML IV STA (05:09)
[2016-09-17] MEDS ORDERED: ACETAMINOPHEN 500 MG TAB PO STA (05:09)
[2016-09-17 05:18] LABS: ALT/SGPT 20 U/L (12-78); AST/SGOT 21 U/L (15-37); BLOOD UREA NITROGEN 19 mg/dl (7-18); BUN/CREATININE RATIO 19.5 (10-20); CARBON DIOXIDE 24 mmol/L (21-32); CHLORIDE 104 mmol/L (98-107); CREATININE 0.95 mg/dl (0.60-1.20); GLUCOSE 163 mg/dl (70-99); POTASSIUM 3.8 mmol/L (3.5-5.1); SODIUM 136 mmol/L (136-145)
[2016-09-17 05:29] LABS: ALKALINE PHOSPHATASE 77 U/L (45-117); CKMB/CK RATIO 1.1 (0-3.0)
[2016-09-17] MEDS ORDERED: LEVOFLOXACIN 250 MG TAB PO STA (05:53)
[2016-09-17] MEDS ORDERED: SODIUM CHLORIDE 0.65% NA SOLN 45 ML (OCEAN) ONE (06:00)
[2016-09-17] MEDS ORDERED: ONDANSETRON HOME PACK 4MG OD TAB PO ONE (06:00)
[2016-09-17] MEDS ORDERED: LEVO1TAB35 PO (06:01)
[2016-09-17] MEDS ORDERED: ONDA4TAB10 SL (06:01)
[2016-09-17 06:20] VITALS: BP 183/101; PULSE 72; O2SAT 95
--- NOTE | 2016-09-17 06:30 | DIAGNOSTIC IMAGING REPORT ---
HEAD CT NONCONTRAST CT DOSE: 614.27 mGy.cm HISTORY: Pt c/o severe headache TECHNIQUE: Multiaxial CT images of the head were performed without the use of intravenous contrast. Automated exposure control was utilized for this study. A dose lowering technique was utilized adhering to the principles of ALARA. Comparison: None. Findings: Complete opacification of the right scaphoid sinus. This demonstrates central calcification consistent with chronic change. The mastoid air cells are clear. The calvarium and skull base are intact. There is no mass, hematoma, midline shift, acute infarct. White matter hypodensity is nonspecific but suggestive of microvascular ischemic change. The ventricles and sulci demonstrate mild age-related involutional changes. 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 Impression: 1. No acute intracranial abnormality. 2. Atrophy and microvascular ischemic changes. 3. Chronic opacification the right sphenoid sinus. Electronically signed by: Kavin Holliday M.D. 09/17/2016 6:29 AM Dictated Date/Time: 09/17/2016 6:26 AM
--- NOTE | 2016-09-17 07:58 | DIAGNOSTIC IMAGING REPORT ---
CHEST ONE VIEW PORTABLE HISTORY: Pt c/o chills COMPARISON: Chest 10/14/2013. FINDINGS: The heart is normal in size. No pleural effusions. No pneumothorax. Mild diffuse interstitial thickening, unchanged. No new focal lung consolidations to suggest pneumonia. No evidence for pulmonary edema. IMPRESSION: Stable mild interstitial thickening which is likely chronic. No focal lung consolidations to suggest pneumonia. Electronically signed by: Kavin Holliday M.D. 09/17/2016 7:57 AM Dictated Date/Time: 09/17/2016 7:56 AM
== END 2016-09-17 06:20 | disposition home or self-care (01) ==
LOC: C.EDB 04:05
DX: J32.9 Chronic sinusitis, unspecified (principal); Z85.3 Personal history of malignant neoplasm of breast; D58.0 Hereditary spherocytosis; R11.10 Vomiting, unspecified; Z96.651 Presence of right artificial knee joint; Z90.81 Acquired absence of spleen; Z82.49 Family history of ischemic heart disease and other diseases of the circulatory system; Z79.899 Other long term (current) drug therapy

== ENCOUNTER → 2016-11-21 | Outpatient (CLI) | payer OTHER, BC ==
[2016-11-21 12:17] LABS: BASO ABS # 0.09 K/uL (0-0.2); COMPLETE YES; EOS % 2.5 %; HEMATOCRIT 43.1 % (37-47); IG% 0.3 %; LYMPH % 31.4 %; LYMPH ABS # 2.84 K/uL (1.2-3.4); MEAN CELL VOLUME 92.9 fL (80-100); MEAN CORPUSCULAR HEMOGLOBIN 31.3 pg (25-34); MEAN CORPUSCULAR HGB CONC 33.6 g/dl (32-36); MEAN PLATELET VOLUME 11.1 fL (7.4-10.4); MONO % 8.7 %; NEUT % 56.1 %; PLATELET COUNT 392 K/uL (130-400); RED BLOOD COUNT 4.64 M/uL (4.2-5.4); WHITE BLOOD COUNT 9.05 K/uL (4.8-10.8)
[2016-11-21 13:10] LABS: ALT/SGPT 22 U/L (12-78); AST/SGOT 28 U/L (15-37); BLOOD UREA NITROGEN 21 mg/dl (7-18); BUN/CREATININE RATIO 21.9 (10-20); CARBON DIOXIDE 25 mmol/L (21-32); CHLORIDE 106 mmol/L (98-107); CHOLESTEROL 201 mg/dl (0-200); CREATININE 0.95 mg/dl (0.60-1.20); GLUCOSE 122 mg/dl (70-99); POTASSIUM 4.2 mmol/L (3.5-5.1); SODIUM 140 mmol/L (136-145)
[2016-11-21 13:12] LABS: ALB/GLOB RATIO 0.8 (0.9-2); ALKALINE PHOSPHATASE 83 U/L (45-117); CHOLESTEROL/HDL RATIO 7.2; HDL CHOLESTEROL 28 mg/dl; LDL CHOLESTEROL CALCULATED 113 mg/dl; TRIGLYCERIDES 298 mg/dl (0-150); VERY LOW DENSITY LIPOPROT CALC 60 mg/dl
[2016-11-21 13:14] LABS: ESTIMATED AVERAGE GLUCOSE 111 mg/dl; HA1C FLAG Normal (Normal)
== END ==
LOC: C.LABBFT 09:18
PROVIDERS: ATTEND Nurse Practitioner
DX: R73.01 Impaired fasting glucose (principal); M81.0 Age-related osteoporosis without current pathological fracture; I10 Essential (primary) hypertension

== ENCOUNTER → 2016-11-29 | Outpatient (CLI) | payer OTHER, BC ==
--- NOTE | 2016-11-29 11:20 | DIAGNOSTIC IMAGING REPORT ---
CAROTID DOPPLER NECK ART HISTORY: Mental status change H53.9 Visual disturbance Patient is scheduled at the [facility] [place] on [place]/07 COMPARISON: None. TECHNIQUE: Real-time, grayscale, and color Doppler sonography of the carotid arteries was performed. Imaging reviewed in the transverse and longitudinal planes. All measurements were calculated based on NASCET criteria. FINDINGS: Antegrade flow is seen in the bilateral vertebral arteries. The brachial pressures are hemodynamically similar. Considerable plaque formation bilaterally. The peak systolic velocity within the right ICA is 43. The right systolic ratio is 0.8. The peak systolic velocity within the left ICA is 50. The left systolic ratio is 1.1. IMPRESSION: No hemodynamically significant stenosis seen within the carotid arteries. Plaque formation bilaterally The above report was generated using voice recognition software. It may contain grammatical, syntax or spelling errors. Electronically signed by: Kurt Rosas M.D. 11/29/2016 11:19 AM Dictated Date/Time: 11/29/2016 11:18 AM
== END | disposition home or self-care (01) ==
LOC: C.ULTR 09:45
PROVIDERS: ATTEND Nurse Practitioner
DX: H53.9 Unspecified visual disturbance (principal); I65.23 Occlusion and stenosis of bilateral carotid arteries

== ENCOUNTER → 2016-11-29 | Outpatient (CLI) | payer OTHER, BC ==
--- NOTE | 2016-11-29 11:24 | DIAGNOSTIC IMAGING REPORT ---
ART DOP LOWER EXT BILAT HISTORY: 81 years-old Female ARTERIES OF LOWER LEGS acute bilateral leg pain COMPARISON: None available TECHNIQUE: Multiple real-time sonographic images of the bilateral lower extremity arterial structures were obtained assessing grayscale appearance, color and spectral flow. ABIs also obtained. FINDINGS: RIGHT: SARANYA's are as follows: Dorsalis pedis artery, 0.93; posterior tibial artery, 0.97. Multifocal atherosclerotic plaquing is seen throughout the right lower extremity arterial structures. Elevated peak systolic velocity of 120 cm/s noted within the midportion of the superficial femoral artery suggesting underlying stenosis. There are predominantly triphasic and biphasic waveforms seen throughout the right lower extremity arterial structures without vessel occlusion or thrombosis identified. Biphasic waveforms are seen within the posterior tibial, peroneal, anterior tibial and dorsalis pedis arteries. LEFT: SARANYA's are as follows: Dorsalis pedis artery, 0.84; posterior tibial artery, 1.04. Multifocal atherosclerotic plaquing is also seen within the left lower extremity arterial structures. Elevated peak systolic velocity of 143 cm/s is noted within the proximal aspect of the superficial femoral artery suggesting underlying stenosis with triphasic waveforms. Biphasic waveforms are noted throughout the majority of the left lower extremity arterial structures. Blunted waveforms are present within the popliteal, posterior tibial, peroneal and dorsalis pedis arteries. IMPRESSION: 1. Multifocal atherosclerotic vascular disease of the bilateral lower extremities with predominantly biphasic waveforms. 2. Mildly elevated peak systolic velocities of the bilateral superficial femoral arteries as above suggests underlying stenosis. 3. SARANYA's as above. The above report was generated using voice recognition software. It may contain grammatical, syntax or spelling errors. Electronically signed by: Curtis Olivarez M.D. 11/29/2016 11:22 AM Dictated Date/Time: 11/29/2016 11:15 AM
== END | disposition home or self-care (01) ==
LOC: C.ULTR 09:48
PROVIDERS: ATTEND Podiatrist
DX: I70.293 Other atherosclerosis of native arteries of extremities, bilateral legs (principal)

== ENCOUNTER 2017-01-22 08:03 | Emergency (ER) | payer OTHER, BC ==
[~2017-01-22] VITALS: Ht 157.5 cm; Wt 87.0 kg
[2017-01-22 08:13] VITALS: Ht 157.5 cm; Wt 87.0 kg
--- NOTE | 2017-01-22 08:19 | EMERGENCY ROOM VISIT NOTE ---
History Report prepared by Amisha: Abel Alarcon Under the Supervision of: Dr. Fermin Vital M.D. First contact with patient: 08:09 Stated Complaint: ARM PAIN/SHOULDER PAIN History of Present Illness The patient is a 81 year old female who presents to the Emergency Room via EMS with complaints of persistent bilateral arm and shoulder pains that awoke her from sleep around 4 hours ago. She states that the pain wraps around her back to her shoulders, without any chest pain. She notes that her arms are somewhat numb as well. The patient notes that she took a Hydrocodone around 3 hours ago, and her gave her a full-strength Aspirin around an hour ago. She adds that she was nauseous as well, but was given Zofran by EMS which relieved the nausea. The patient says that she has never had pain like this before. She says that she is still having the arm pain but is not having the shoulder pain currently. The patient notes that she had a few episodes this morning where she was unable to control her urine. She has a colostomy, and her bowels were loose this morning but were not diarrhea. She denies any chest pain, jaw pain, low back pain, leg pain, or burning with urination. She also denies any recent injuries or over-use. She notes no history of heart trouble or diabetes. Source of History: patient, spouse/significant other Onset: 4 hours ago Position: shoulder (bilateral), arm (bilateral) Quality: numbness, other (pain) Timing: other (persistent) Modifying Factors (Relieving): other (Zofran) Associated Symptoms: + nausea, + back pain (upper, denies lower), + urinary symptoms (unable to control urine, but denies burning with urination), No chest pain, No diarrhea (but was loose) Note: Associated symptoms: Denies jaw pain, leg pain. Review of Systems See HPI for pertinent positives & negatives. A total of 10 systems reviewed and were otherwise negative. 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 (2) History of section (3) History of lumpectomy (4) History of splenectomy Old medical records were reviewed. Nurse's notes were reviewed and I agree with. Family History Hypertension Social History Smoking Status: Never Smoker Alcohol Use: none Drug Use: none Marital Status: Housing Status: lives with family Occupation Status: retired Current/Historical Medications Scheduled Ascorbic Acid (Vitamin C), 500 MG PO DAILY Calcium (Calcium), 600 MG PO Q2D Cetirizine (Zyrtec), 5 MG PO QPM Cholecalciferol (Vitamin D 1000 Unit), 2,000 INTER.UNIT PO QPM Ezetimibe (Zetia), 10 MG PO QPM Losartan Potassium (Cozaar), 50 MG PO DAILY Multivitamin (Multivitamin), 1 TAB PO DAILY Prednisone (Prednisone), 50 MG PO DAILY Probiotic Product (Probiotic), 1 CAP PO QPM Ranitidine HCl (Ranitidine HCl), 150 MG PO BID Scheduled PRN Dicyclomine HCl (Dicyclomine HCl), 5 MG PO TID PRN for cramping Hydrocodone/Acetaminophen 5MG/325MG (Mayer 5MG/325MG), 0.5 TABLET PO HS PRN for Pain Polyethylene Glycol 3350 (Miralax), 17 GM PO DAILY PRN for Constipation Allergies Coded Allergies: Vancomycin (Verified Allergy, Intermediate, rash, 01/22/17) Diphenhydramine (Verified Allergy, Mild, Redness, 01/22/17) Amoxicillin (Verified Allergy, Unknown, bad reaction/glands swollen puffed up, 01/22/17) Clavulanic Acid (Verified Allergy, Unknown, 01/22/17) Codeine (Verified Allergy, Unknown, 01/22/17) Physical Exam Vital Signs Date Time Temp Pulse Resp B/P (MAP) Pulse Ox O2 Delivery O2 Flow Rate FiO2 01/22/17 11:48 66 16 176/100 93 01/22/17 10:10 37.2 69 16 199/110 93 Room Air 01/22/17 08:39 58 01/22/17 08:13 37.2 82 16 189/90 100 Room Air Physical Exam General: Older female complaining of arm pain mostly on the right, worse with movement. HEENT: Normal cephalic atraumatic. Pupils are equal round and reactive to light. Extraocular movements are intact. Oropharynx is pink with moist mucous membranes. No swelling of the mouth lips or tongue. Neck: Supple with a midline trachea. No meningeal signs or stiffness, no JVD or bruits. No Stridor. Chest: Clear to auscultation bilaterally. No wheezes or rhonchi. No increased work of breathing. Heart: regular rate and rhythm. Abdomen: Soft nontender, nondistended without rebound guarding or rigidity. Extremities: Normal pulses in upper extremities. No cyanosis clubbing or edema. No calf tenderness or assymetry Spine/Back. Non tender to palpation. No CVA tenderness Skin: Good turgor without rashes. Neurologic exam: Cranial nerves two through 12 are intact. Motor and sensation are intact and symmetrical throughout. Medical Decision & Procedures ER Provider Diagnostic Interpretation: Radiology results as stated below per my review and radiologist interpretation: CHEST ONE VIEW PORTABLE CLINICAL HISTORY: 81 years-old Female presenting with CHEST PAIN. TECHNIQUE: Portable upright AP view of the chest was obtained. COMPARISON: 09/17/2016. FINDINGS: Atherosclerosis of the aorta, which appears slightly ectatic as on prior exam. Cardiac silhouette normal in size. Pulmonary vascular is less prominent than on the prior exam. Mildly prominent lung markings at the bases. Lungs and pleural spaces clear. Degenerative changes of the right acromioclavicular joint. Upper abdomen normal. IMPRESSION: 1. Atherosclerosis of the slightly ectatic thoracic aorta, unchanged. 2. Questionable volume overload. No other convincing evidence of acute cardiopulmonary disease. Electronically signed by: Austin Bowles M.D. 01/22/2017 8:34 AM Dictated Date/Time: 01/22/2017 8:32 AM CERVICAL SPINE W/O CLINICAL HISTORY: 81 years-old Female presenting with eval for disk disease, history of lumbar epidural abscess. TECHNIQUE: Multidetector CT of the cervical spine was performed without the use of intravenous contrast. IV contrast: None. A dose lowering technique was used consistent with the principles of ALARA (as low as reasonably achievable). COMPARISON: MR from 2010. CT DOSE (mGy.cm): The estimated cumulative dose is 1683.55 mGy.cm. FINDINGS: Radio Presenter topogram: Unremarkable. Normal cervical lordosis though 2 mm of anterolisthesis of C3 on C4 as well as 2 to 3 mm of anterolisthesis of C6 on C7 noted. No acute fracture or subluxation. Mild multilevel degenerative changes evident most pronounced in the mid to lower cervical spine with disc osteophyte complexes at C4-5 and C5-6. Posterior bony spurring is greatest at C4-5. Degenerative changes of the atlantodental articulation. No significant osseous neural foraminal or spinal canal narrowing despite the presence of facet arthropathy and uncovertebral hypertrophy at multiple levels. Incidental no made of left ponticulus posticus at C1. Partial opacification of the sphenoid sinuses. Paraspinal soft tissues remarkable for multiple thyroid nodules in both lobes measuring up to 14 mm in size. Atherosclerosis. Lung apices clear. IMPRESSION: 1. No acute osseous injury of the cervical spine. Mild multilevel degenerative changes most pronounced at C4-5 and C5-6. No significant osseous neural foraminal or spinal canal narrowing. 2. Partial opacification of the sphenoid sinuses. 3. Multinodular thyroid. Electronically signed by: Austin Bowles M.D. 01/22/2017 10:13 AM Dictated Date/Time: 01/22/2017 10:06 AM CHEST COMBO ANGIO DISSECTION CLINICAL HISTORY: 81 years-old Female presenting with ^eval for dissection ^shoulder blade pain, chest pain. TECHNIQUE: Multidetector CT angiography of the chest was performed before and after administration of intravenous contrast. 3-D volumetric and/or maximum intensity projection (MIP) images were subsequently reconstructed for review. IV contrast: 93 mL of Optiray 320. A dose lowering technique was used consistent with the principles of ALARA (as low as reasonably achievable). COMPARISON: None. CT DOSE (mGy.cm): The estimated cumulative dose is 1683.[address] cervical spine. FINDINGS: Radio Presenter topogram: Unremarkable. Vasculature: The study is adequate for assessment of the thoracic aorta. Precontrast imaging demonstrates no hyperdensity within the aorta to suggest intramural hematoma. Calcified atherosclerotic plaque noted most pronounced at the aortic arch. No periaortic infiltration. Postcontrast imaging demonstrates a three-vessel aortic arch with patent origins of the branch vessels. No aneurysmal dilatation of the thoracic aorta, evidence of dissection, or acute injury. Minimal aortic valve calcification suggested. Normal heart size. Mild coronary artery calcification. No gross filling defect within the pulmonary arteries to suggest embolus. Main pulmonary artery is not enlarged. No flattening of the interventricular septum. No intracardiac intracardiac filling defect. No reflux of contrast into the hepatic veins. Remaining chest: On soft tissue windows, multinodular thyroid. Prominent subcentimeter mediastinal lymph nodes primarily in the paratracheal, precarinal, subcarinal, prevascular, and paraesophageal regions. The largest measures 9 mm in short axis (series 9 image 101). No pericardial or pleural effusion. The spleen is absent. On lung windows, dependent changes likely atelectasis. 2 adjacent solid pulmonary nodules in the right middle lobe, each measuring 2 mm (series 9 images 137 and 140). Additional solid 3 mm pulmonary nodule in the periphery of the right middle lobe (series 9 image 153). Subpleural reticulation in the left upper lobe and lingula. Airways patent. On bone windows, mild degenerative changes of the thoracic spine. IMPRESSION: 1. No evidence of acute aortic injury. 2. Multiple prominent subcentimeter mediastinal lymph nodes may be reactive. 3. Few small solid pulmonary nodules in the right middle lobe measuring up to 3 mm. These may be infectious or inflammatory in etiology. Follow-up per [employer]anca Society 2017 recommendations below. 4. No other evidence of acute intrathoracic pathology. Please refer to below summary of Fleischner Society 2017 recommendations for follow-up of incidental CT nodules (H Moe et al. Guidelines for management of incidental pulmonary nodules detected on CT images: From the Fleischner Society 2017. Radiology 2017; 284: 228-243.) SOLID NODULES Single nodule; size < 6 mm * Low risk patients: No routine follow-up * High risk patients: Optional CT at 12 months Single nodule; size 6-8 mm * Low risk patients: CT at 6-12 months, then consider CT at 18-24 months * High risk patients: CT at 6-12 months, then at 18-24 months Single nodule; size > 8 mm * Either low or high risk patients: Considered CT at 3 months, PET/CT, or tissue sampling Multiple nodules; size < 6 mm * Low risk patients: No routine follow up * High risk patients: Optional CT at 12 months Multiple nodules; size 6-8 mm * Low risk patients: CT at 3-6 months, then consider CT at 18-24 months * High risk patients: CT at 3-6 months, then at 18-24 months Multiple nodules; size > 8 mm * Low risk patients: CT at 3-6 months, then consider at 18-24 months * High risk patients: CT at 3-6 months, then at 18-24 months Note: These guidelines apply to incidental nodules. These guidelines do not apply to patients younger than 35 years, immunocompromised patients, or patients with cancer. * Low risk patients: Minimal or absent history of smoking and/or other known risk factors * High risk patients: History of smoking, exposure to other carcinogens, emphysema, fibrosis, upper lobe location, family history of lung cancer, etc. * If a nodule up to 8 mm is partly solid or is ground glass, further follow-up is required after 24 months to exclude possible slow growing adenocarcinoma. SUBSOLID NODULES Single ground-glass nodule * Nodule size < 6 mm: No routine follow-up * Nodule size > or = 6 mm: CT at 6-12 months to confirm persistence, then CT every 2 years until 5 years Single part-solid nodule * Nodule size < 6 mm: No routine follow-up * Nodules size > or = 6 mm: CT at 3-6 months to confirm persistence. If unchanged and solid component remains < 6 mm, annual CT should be performed for 5 years Multiple nodules * Nodule size < 6 mm: CT at 3-6 months. If stable, consider CT at 2 and 4 years. * Nodules size > or = 6 mm: CT at 3-6 months. Subsequent management based on the most suspicious nodule(s) Electronically signed by: Austin Bowles M.D. 01/22/2017 10:26 AM Dictated Date/Time: 01/22/2017 10:15 AM Laboratory Results 01/22/17 08:13 Red Blood Count 4.84, Mean Corpuscular Volume 91.9, Mean Corpuscular Hemoglobin 31.2, Mean Corpuscular Hemoglobin Concent 33.9, Mean Platelet Volume 10.8, Neutrophils (%) (Auto) 51.7, Lymphocytes (%) (Auto) 34.9, Monocytes (%) (Auto) 6.9, Eosinophils (%) (Auto) 5.5, Basophils (%) (Auto) 0.6, Neutrophils # (Auto) 6.73, Lymphocytes # (Auto) 4.53, Monocytes # (Auto) 0.89, Eosinophils # (Auto) 0.71, Basophils # (Auto) 0.08 01/22/17 08:13 Test 01/22/17 08:13 01/22/17 08:19 01/22/17 08:25 White Blood Count 12.99 K/uL (4.8-10.8) Red Blood Count 4.84 M/uL (4.2-5.4) Hemoglobin 15.1 g/dL (12.0-16.0) Hematocrit 44.5 % (37-47) Mean Corpuscular Volume 91.9 fL (80-100) Mean Corpuscular Hemoglobin 31.2 pg (25-34) Mean Corpuscular Hemoglobin Concent 33.9 g/dl (32-36) Platelet Count 389 K/uL (130-400) Mean Platelet Volume 10.8 fL (7.4-10.4) Neutrophils (%) (Auto) 51.7 % Lymphocytes (%) (Auto) 34.9 % Monocytes (%) (Auto) 6.9 % Eosinophils (%) (Auto) 5.5 % Basophils (%) (Auto) 0.6 % Neutrophils # (Auto) 6.73 K/uL (1.4-6.5) Lymphocytes # (Auto) 4.53 K/uL (1.2-3.4) Monocytes # (Auto) 0.89 K/uL (0.11-0.59) Eosinophils # (Auto) 0.71 K/uL (0-0.5) Basophils # (Auto) 0.08 K/uL (0-0.2) RDW Standard Deviation 47.7 fL (36.4-46.3) RDW Coefficient of Variation 14.2 % (11.5-14.5) Immature Granulocyte % (Auto) 0.4 % Immature Granulocyte # (Auto) 0.05 K/uL (0.00-0.02) Anion Gap 7.0 mmol/L (3-11) Est Creatinine Clear Calc Drug Dose 49.7 ml/min Estimated GFR () 66.9 Estimated GFR (Non- 57.7 BUN/Creatinine Ratio 20.1 (10-20) Calcium Level 9.2 mg/dl (8.5-10.1) Total Bilirubin 0.5 mg/dl (0.2-1) Direct Bilirubin 0.1 mg/dl (0-0.2) Aspartate Amino Transf (AST/SGOT) 29 U/L (15-37) Alanine Aminotransferase (ALT/SGPT) 22 U/L (12-78) Alkaline Phosphatase 100 U/L (45-117) Total Creatine Kinase 69 U/L (26-192) Creatine Kinase MB 1.0 ng/ml (0.5-3.6) Total Protein 7.8 gm/dl (6.4-8.2) Albumin 3.5 gm/dl (3.4-5.0) Lipase 233 U/L (73-393) Creatine Kinase MB Ratio (0-3.0) Bedside Troponin I < 0.030 ng/ml (0-0.045) Laboratory studies as stated above per my review. Medications Administered Medications (Trade) Dose Ordered Sig/Jonas Route Start Time Stop Time Status Last Admin Dose Admin Ondansetron HCl (Zofran Inj) 4 mg NOW STAT IV 01/22/17 08:25 01/22/17 08:26 DC 01/22/17 08:51 4 MG Morphine Sulfate (MoRPHine SULFATE INJ) 2 mg NOW STAT IV 01/22/17 08:25 01/22/17 08:26 DC 01/22/17 08:52 2 MG Prednisone (PredniSONE TAB) 60 mg NOW STAT PO 01/22/17 11:09 01/22/17 11:10 DC 01/22/17 11:47 60 MG ECG Indication: nausea Rate (beats per minute): 60 Rhythm: normal sinus Findings: no acute ischemic change, no ectopy, other (poor R-wave progression, old inferior infarct change) Change: no significant change (compared to September 17 2016) ED Course 0809: Past medical records reviewed. The patient was evaluated in room B5, and a complete history and physical examination were performed. 0825: Ordered Morphine Sulfate Inj 2 mg IV, Zofran Inj 4 mg IV. 0904: I reevaluated the patient and she is doing much better now. 1053: I reevaluated and updated the patient. 1107: Upon reevaluation, the patient is feeling well. I discussed the results and treatment plan with her. She verbalized agreement of the treatment plan. The patient was discharged home. 1109: Ordered Prednisone Tab 60 mg PO. Medical Decision Differentials include cardiac disease, aortic disease, musculoskeletal, electrolyte or metabolic abnormality, infection. This patient comes in as described above. She was placed in room B5. She is here for treatment and evaluation of bilateral arm pain and pain in her posterior shoulders. The pain is deftly reproducible and she says it hurts when she makes a fist or clenches my fingers on exam. She has no numbness or weakness. There is been no trauma. She denies chest pain, shortness breath, or fever. She's had no cough or injury. EKG was obtained and does not show any acute ischemic changes. She was given IV morphine and IV Zofran and felt much better and is resting comfortably. Chest x-ray was unremarkable. Cardiac biomarkers are negative. She's had no acute electrolyte or metabolic abnormalities. I did a CAT scan of her neck as well as CT of her chest there is no acute findings to explain her symptoms. She has nothing to suggest vascular/aortic pathology. She feels good and would like to go home. This may be related to her spine and could be related to muscloskelter or nerve roots. I will put her on prednisone short course and she should continue to use her pain medication at home . She given 60 mg of prednisone here and has nothing to suggest this is cardiac. It is very reproducible and her cardiac workup thus far is negative . I discussed this with them and they strongly desires to go home and is reasonable. She will be discharged home and follow-up with her regular doctor tomorrow for recheck. Medication Reconcilliation Current Medication List: was personally reviewed by me Blood Pressure Screening Patient's blood pressure: Elevated blood pressure Blood pressure disposition: Referred to PCP Impression Primary Impression: Bilateral arm pain Scribe Attestation The scribe's documentation has been prepared under my direction and personally reviewed by me in its entirety. I confirm that the note above accurately reflects all work, treatment, procedures, and medical decision making performed by me. Departure Information Dispostion Home / Self-Care Prescriptions Prednisone (Prednisone) 50 Mg Tab 50 MG PO DAILY, #4 TAB Prov: Fermin Vital M.D. 01/22/17 Referrals Madai Leonard, C.R.N.P. (PCP) Additional Instructions Rest. Drink plenty of fluids. Use prednisone 50 mg a day for the next 4 days Return if: Worsening of symptoms, fever or chills, chest pain, numbness or weakness, shortness of breath, any new problems or concerns Ensure you take your blood pressure medicine when he home and follow-up with your doctor tomorrow for recheck and also recheck on your blood pressure
[2017-01-22] MEDS ORDERED: ONDANSETRON INJ 2 MG/ML 2 ML VIAL IV STA (08:25)
[2017-01-22] MEDS ORDERED: MoRPHine SULFATE 2 MG/ML CARP IV STA (08:25)
--- NOTE | 2017-01-22 08:36 | DIAGNOSTIC IMAGING REPORT ---
CHEST ONE VIEW PORTABLE CLINICAL HISTORY: 81 years-old Female presenting with CHEST PAIN. TECHNIQUE: Portable upright AP view of the chest was obtained. COMPARISON: 09/17/2016. FINDINGS: Atherosclerosis of the aorta, which appears slightly ectatic as on prior exam. Cardiac silhouette normal in size. Pulmonary vascular is less prominent than on the prior exam. Mildly prominent lung markings at the bases. Lungs and pleural spaces clear. Degenerative changes of the right acromioclavicular joint. Upper abdomen normal. IMPRESSION: 1. Atherosclerosis of the slightly ectatic thoracic aorta, unchanged. 2. Questionable volume overload. No other convincing evidence of acute cardiopulmonary disease. Electronically signed by: Austin Bowles M.D. 01/22/2017 8:34 AM Dictated Date/Time: 01/22/2017 8:32 AM
[2017-01-22 08:47] LABS: BUN/CREATININE RATIO 20.1 (10-20); CALCIUM 9.2 mg/dl (8.5-10.1); CREATININE 0.94 mg/dl (0.60-1.20)
[2017-01-22 08:51] LABS: BASO % 0.6 %; BASO ABS # 0.08 K/uL (0-0.2); COMPLETE YES; EOS % 5.5 %; HEMATOCRIT 44.5 % (37-47); IG% 0.4 %; LYMPH % 34.9 %; LYMPH ABS # 4.53 K/uL (1.2-3.4); MEAN CELL VOLUME 91.9 fL (80-100); MEAN CORPUSCULAR HEMOGLOBIN 31.2 pg (25-34); MEAN CORPUSCULAR HGB CONC 33.9 g/dl (32-36); MEAN PLATELET VOLUME 10.8 fL (7.4-10.4); MONO % 6.9 %; NEUT % 51.7 %; PLATELET COUNT 389 K/uL (130-400); RED BLOOD COUNT 4.84 M/uL (4.2-5.4); WHITE BLOOD COUNT 12.99 K/uL (4.8-10.8)
[2017-01-22 08:52] LABS: CKMB/CK RATIO 1.4 (0-3.0)
[2017-01-22] MEDS ORDERED: OPTIRAY 320 IV PRN (09:15)
[2017-01-22 10:10] VITALS: TEMP 37.2
--- NOTE | 2017-01-22 10:15 | DIAGNOSTIC IMAGING REPORT ---
CERVICAL SPINE W/O CLINICAL HISTORY: 81 years-old Female presenting with eval for disk disease, history of lumbar epidural abscess. TECHNIQUE: Multidetector CT of the cervical spine was performed without the use of intravenous contrast. IV contrast: None. A dose lowering technique was used consistent with the principles of ALARA (as low as reasonably achievable). COMPARISON: MR from 2011. CT DOSE (mGy.cm): The estimated cumulative dose is 1683.55 mGy.cm. FINDINGS: Tacker Elastic Band topogram: Unremarkable. Normal cervical lordosis though 2 mm of anterolisthesis of C3 on C4 as well as 2 to 3 mm of anterolisthesis of C6 on C7 noted. No acute fracture or subluxation. Mild multilevel degenerative changes evident most pronounced in the mid to lower cervical spine with disc osteophyte complexes at C4-5 and C5-6. Posterior bony spurring is greatest at C4-5. Degenerative changes of the atlantodental articulation. No significant osseous neural foraminal or spinal canal narrowing despite the presence of facet arthropathy and uncovertebral hypertrophy at multiple levels. Incidental no made of left ponticulus posticus at C1. Partial opacification of the sphenoid sinuses. Paraspinal soft tissues remarkable for multiple thyroid nodules in both lobes measuring up to 14 mm in size. Atherosclerosis. Lung apices clear. IMPRESSION: 1. No acute osseous injury of the cervical spine. Mild multilevel degenerative changes most pronounced at C4-5 and C5-6. No significant osseous neural foraminal or spinal canal narrowing. 2. Partial opacification of the sphenoid sinuses. 3. Multinodular thyroid. Electronically signed by: Austin Bowles M.D. 01/22/2017 10:13 AM Dictated Date/Time: 01/22/2017 10:06 AM
--- NOTE | 2017-01-22 10:27 | DIAGNOSTIC IMAGING REPORT ---
CHEST COMBO ANGIO DISSECTION CLINICAL HISTORY: 81 years-old Female presenting with ^eval for dissection ^shoulder blade pain, chest pain. TECHNIQUE: Multidetector CT angiography of the chest was performed before and after administration of intravenous contrast. 3-D volumetric and/or maximum intensity projection (MIP) images were subsequently reconstructed for review. IV contrast: 93 mL of Optiray 320. A dose lowering technique was used consistent with the principles of ALARA (as low as reasonably achievable). COMPARISON: None. CT DOSE (mGy.cm): The estimated cumulative dose is 1683.[address] cervical spine. 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 Vasculature: The study is adequate for assessment of the thoracic aorta. Precontrast imaging demonstrates no hyperdensity within the aorta to suggest intramural hematoma. Calcified atherosclerotic plaque noted most pronounced at the aortic arch. No periaortic infiltration. Postcontrast imaging demonstrates a three-vessel aortic arch with patent origins of the branch vessels. No aneurysmal dilatation of the thoracic aorta, evidence of dissection, or acute injury. Minimal aortic valve calcification suggested. Normal heart size. Mild coronary artery calcification. No gross filling defect within the pulmonary arteries to suggest embolus. Main pulmonary artery is not enlarged. No flattening of the interventricular septum. No intracardiac intracardiac filling defect. No reflux of contrast into the hepatic veins. Remaining chest: On soft tissue windows, multinodular thyroid. Prominent subcentimeter mediastinal lymph nodes primarily in the paratracheal, precarinal, subcarinal, prevascular, and paraesophageal regions. The largest measures 9 mm in short axis (series 9 image 101). No pericardial or pleural effusion. The spleen is absent. On lung windows, dependent changes likely atelectasis. 2 adjacent solid pulmonary nodules in the right middle lobe, each measuring 2 mm (series 9 images 137 and 140). Additional solid 3 mm pulmonary nodule in the periphery of the right middle lobe (series 9 image 153). Subpleural reticulation in the left upper lobe and lingula. Airways patent. On bone windows, mild degenerative changes of the thoracic spine. IMPRESSION: 1. No evidence of acute aortic injury. 2. Multiple prominent subcentimeter mediastinal lymph nodes may be reactive. 3. Few small solid pulmonary nodules in the right middle lobe measuring up to 3 mm. These may be infectious or inflammatory in etiology. Follow-up per [place] Society 2017 recommendations below. 4. No other evidence of acute intrathoracic pathology. Please refer to below summary of Fleischner Society 2017 recommendations for follow-up of incidental CT nodules (Edgardo Rosa et al. Guidelines for management of incidental pulmonary nodules detected on CT images: From the Fleischner Society 2017. Radiology 2017; 284: 228-243.) SOLID NODULES Single nodule; size < 6 mm * Low risk patients: No routine follow-up * High risk patients: Optional CT at 12 months Single nodule; size 6-8 mm * Low risk patients: CT at 6-12 months, then consider CT at 18-24 months * High risk patients: CT at 6-12 months, then at 18-24 months Single nodule; size > 8 mm * Either low or high risk patients: Considered CT at 3 months, PET/CT, or tissue sampling Multiple nodules; size < 6 mm * Low risk patients: No routine follow up * High risk patients: Optional CT at 12 months Multiple nodules; size 6-8 mm * Low risk patients: CT at 3-6 months, then consider CT at 18-24 months * High risk patients: CT at 3-6 months, then at 18-24 months Multiple nodules; size > 8 mm * Low risk patients: CT at 3-6 months, then consider at 18-24 months * High risk patients: CT at 3-6 months, then at 18-24 months Note: These guidelines apply to incidental nodules. These guidelines do not apply to patients younger than 35 years, immunocompromised patients, or patients with cancer. * Low risk patients: Minimal or absent history of smoking and/or other known risk factors * High risk patients: History of smoking, exposure to other carcinogens, emphysema, fibrosis, upper lobe location, family history of lung cancer, etc. * If a nodule up to 8 mm is partly solid or is ground glass, further follow-up is required after 24 months to exclude possible slow growing adenocarcinoma. SUBSOLID NODULES Single ground-glass nodule * Nodule size < 6 mm: No routine follow-up * Nodule size > or = 6 mm: CT at 6-12 months to confirm persistence, then CT every 2 years until 5 years Single part-solid nodule * Nodule size < 6 mm: No routine follow-up * Nodules size > or = 6 mm: CT at 3-6 months to confirm persistence. If unchanged and solid component remains < 6 mm, annual CT should be performed for 5 years Multiple nodules * Nodule size < 6 mm: CT at 3-6 months. If stable, consider CT at 2 and 4 years. * Nodules size > or = 6 mm: CT at 3-6 months. Subsequent management based on the most suspicious nodule(s) Electronically signed by: Austin Bowles M.D. 01/22/2017 10:26 AM Dictated Date/Time: 01/22/2017 10:15 AM
[2017-01-22] MEDS ORDERED: PRED50TA PO (11:11)
[2017-01-22 11:48] VITALS: BP 176/100; PULSE 66; O2SAT 93
== END 2017-01-22 11:50 | disposition home or self-care (01) ==
LOC: EDBD 08:03 → C.EDB 08:04
DX: M79.621 Pain in right upper arm (principal); M79.622 Pain in left upper arm; M25.511 Pain in right shoulder; M25.512 Pain in left shoulder; I10 Essential (primary) hypertension; K86.1 Other chronic pancreatitis; K57.92 Diverticulitis of intestine, part unspecified, without perforation or abscess without bleeding; Z87.19 Personal history of other diseases of the digestive system; Z93.3 Colostomy status; Z98.890 Other specified postprocedural states; Z79.899 Other long term (current) drug therapy; Z88.1 Allergy status to other antibiotic agents; Z88.5 Allergy status to narcotic agent; Z88.8 Allergy status to other drugs, medicaments and biological substances; Z82.49 Family history of ischemic heart disease and other diseases of the circulatory system

== ENCOUNTER → 2017-03-07 | Outpatient (CLI) | payer OTHER, BC ==
[~2017-03-07] MED LIST changes: -ONDA4TAB10 SL; +PRED50TA PO
[2017-03-07 17:54] LABS: BLOOD UREA NITROGEN 28 mg/dl (7-18)
== END | disposition home or self-care (01) ==
LOC: C.LABBFT 15:35
PROVIDERS: ATTEND Nurse Practitioner
DX: R40.4 Transient alteration of awareness (principal)

== ENCOUNTER → 2017-03-15 | Outpatient (CLI) | payer OTHER, BC ==
[~2017-03-15] MED LIST changes: +GADAVIST IV PRN; +HYG25 PO; +OPTIRAY 320 IV PRN
--- NOTE | 2017-03-15 11:31 | DIAGNOSTIC IMAGING REPORT ---
CT NECK ANGIO WITH CONTRAST CLINICAL HISTORY: Transient ischemic attack. Slurred speech. History of cerebral arterial occlusion. COMPARISON STUDY: Carotid Doppler ultrasound dated 11/29/2016 TECHNIQUE: CT angiography was performed from the aortic arch to the skull base. MIP imaging was performed. The patient was scanned in a dynamic helical fashion during intravenous administration of 94 cc of Optiray 320. A dose lowering technique was utilized adhering to the principles of ALARA. CT DOSE: 542.54 mGy.cm Technique: CT angiogram of the carotid and vertebral arteries was obtained using intravenous contrast and 3-D reconstruction. NASCET criteria was utilized. Findings: There is a multinodular thyroid gland. There is partial opacification of the sphenoid sinus. The right carotid revealed no evidence of aneurysm and no evidence of dissection. There is no evidence of hemodynamic significant stenosis. There is calcific plaque at the level of the right carotid bulb. The left carotid revealed no evidence of hemodynamic significant stenosis. There is no evidence of aneurysm. There is no evidence of dissection. There is calcific plaque at the level of the left carotid bulb There is no evidence of hemodynamically significant vertebral stenosis. There is no evidence of vertebral dissection. The basilar artery is somewhat diminutive. IMPRESSION: No evidence of hemodynamically significant carotid or vertebral artery stenosis. No evidence of dissection. Electronically signed by: Bc Garcia M.D. 03/15/2017 11:30 AM Dictated Date/Time: 03/15/2017 11:24 AM
--- NOTE | 2017-03-15 12:19 | DIAGNOSTIC IMAGING REPORT ---
BRAIN COMBO CLINICAL HISTORY: I63.50 Cerebral artery occlusion with cerebral [id number] mental status change COMPARISON STUDY: CT 09/17/2016 TECHNIQUE: Utilizing a 1.5 Christine magnet and dedicated coil, multiplanar, multiecho imaging of the brain was performed pre and postcontrast administration. IV administration of 8.0 mL of Gadavist contrast was uneventful. FINDINGS: Diffusion-weighted images show a small linear focus of mildly increased signal adjacent to the left lateral ventricle. This focus is also identified on all additional sequences including increase in signal on the T1 images. This potentially indicates a small subacute to old/subacute hemorrhagic infarct of the left periventricular/external capsule location. Major the brain demonstrates multiple foci of increased signal throughout both cerebral hemispheres consistent with considerable chronic small vessel change. Ventricular system is midline. There is opacification of the sphenoid sinus suggesting polypoid change. This is similar to the CT examination noted previously. No additional focus of enhancement is identified. IMPRESSION: 1. 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 2. The small hemorrhagic component is considered old, with diffusion images suggesting a small superimposed acute nonhemorrhagic extension. 3. Findings of generalized atrophy and considerable chronic small vessel change. 4. Unchanging polypoid opacification of the sphenoid sinus as compared to the prior CT study of 09/17/2016 The above report was generated using voice recognition software. It may contain grammatical, syntax or spelling errors. Electronically signed by: Kurt Rosas M.D. 03/15/2017 12:18 PM Dictated Date/Time: 03/15/2017 12:07 PM
== END | disposition home or self-care (01) ==
LOC: C.CTS 10:40
PROVIDERS: ATTEND Nurse Practitioner
DX: F80.89 Other developmental disorders of speech and language (principal); R40.4 Transient alteration of awareness; Z86.73 Personal history of transient ischemic attack (TIA), and cerebral infarction without residual deficits

== ENCOUNTER 2017-03-23 00:40 | Emergency (ER) | payer OTHER, BC ==
[~2017-03-23] VITALS: Ht 152.4 cm; Wt 85.0 kg
[~2017-03-23 00:40] MED LIST changes: -GADAVIST IV PRN; -HYG25 PO; -OPTIRAY 320 IV PRN
[2017-03-23] MEDS ORDERED: FENTANYL CITRATE INJ 50 MCG/1 ML 2 ML VIAL IV STA (00:58)
[2017-03-23] MEDS ORDERED: LABETALOL HCL IV 5 MG/ML 20ML IV STA ×2 (00:58→02:08)
[2017-03-23 00:59] VITALS: TEMP 36.6; Ht 152.4 cm; Wt 85.0 kg
--- NOTE | 2017-03-23 01:06 | EMERGENCY ROOM VISIT NOTE ---
History Report prepared by Amisha: Zuri Caceres Under the Supervision of: Dr. Carla Guillen M.D. First contact with patient: 00:47 Chief Complaint: HEADACHE Stated Complaint: HEADACHE History of Present Illness The patient is a 82 year old female who presents to the Emergency Room with complaints of a persistent centralized headache that began earlier today. The patient states that her pain does not radiate to her neck. She reports that she had an hemorrhagic stroke several weeks ago, noting her symptoms seem similar and that she is still taking one baby Aspirin a day including tonight. She denies being confused, fevers, vomiting, chest pain, or shortness of breath. She reports that she takes blood pressure medication, noting her blood pressure was 127/79 the last time she saw her PCP. Her states that she had a Holter monitor placed 5 days ago. Source of History: patient Onset: earlier today Position: head Quality: other (centralized headache) Timing: other (persistent) Associated Symptoms: No fevers, No chest pain, No SOB, No vomiting Note: Patient denies being confused. Review of Systems See HPI for pertinent positives & negatives. A total of 10 systems reviewed and were otherwise negative. 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 (2) History of section (3) History of lumpectomy (4) History of splenectomy Family History Hypertension Social History Smoking Status: Never Smoker Alcohol Use: none Drug Use: none Marital Status: Housing Status: lives with family Occupation Status: retired Current/Historical Medications Scheduled Ascorbic Acid (Vitamin C), 500 MG PO DAILY Calcium (Calcium), 600 MG PO Q2D Cetirizine (Zyrtec), 5 MG PO QPM Chlorthalidone (Chlorthalidone), 12.5 MG PO DAILY Cholecalciferol (Vitamin D 1000 Unit), 2,000 INTER.UNIT PO QPM Ezetimibe (Zetia), 10 MG PO QPM Losartan Potassium (Cozaar), 50 MG PO DAILY Multivitamin (Multivitamin), 1 TAB PO DAILY Prednisone (Prednisone), 50 MG PO DAILY Probiotic Product (Probiotic), 1 CAP PO QPM Ranitidine HCl (Ranitidine HCl), 150 MG PO BID Scheduled PRN Dicyclomine HCl (Dicyclomine HCl), 5 MG PO TID PRN for cramping Hydrocodone/Acetaminophen 5MG/325MG ([place] 5MG/325MG), 0.5 TABLET PO HS PRN for Pain Polyethylene Glycol 3350 (Miralax), 17 GM PO DAILY PRN for Constipation Allergies Coded Allergies: Vancomycin (Verified Allergy, Intermediate, rash, 01/22/17) Diphenhydramine (Verified Allergy, Mild, Redness, 01/22/17) Amoxicillin (Verified Allergy, Unknown, bad reaction/glands swollen puffed up, 01/22/17) Clavulanic Acid (Verified Allergy, Unknown, 01/22/17) Codeine (Verified Allergy, Unknown, 01/22/17) Physical Exam Vital Signs Date Time Temp Pulse Resp B/P (MAP) Pulse Ox O2 Delivery O2 Flow Rate FiO2 03/23/17 05:02 68 18 153/85 96 03/23/17 04:04 85 18 157/89 94 Room Air 03/23/17 04:03 87 03/23/17 03:02 81 18 177/96 94 Room Air 03/23/17 02:18 80 18 160/92 93 Room Air 03/23/17 02:00 82 20 178/104 92 Room Air 03/23/17 01:30 88 20 156/112 93 Room Air 03/23/17 00:59 36.6 100 22 197/123 94 Room Air 03/23/17 00:50 99 Physical Exam Vital signs reviewed. General: Obese, chronically ill appearing female, in no significant distress. HEENT: No scleral icterus, PERRLA, neck supple. Atraumatic. Cardiovascular: Regular rate and rhythm, no extra sounds. Pulmonary: Clear to auscultation bilaterally, normal work of breathing. Abdomen: Colostomy to abdomen. Soft, nontender, nondistended, positive bowel sounds. Musculoskeletal: Atraumatic, no peripheral edema. Neurologic: Patient awake alert and oriented x 3, full strength in all 4 extremities. Cranial nerves 2 through 12 grossly intact. Skin: Warm, dry, no rash Medical Decision & Procedures ER Provider Diagnostic Interpretation: Radiology results as stated below per my review and radiologist interpretation: Chest x-ray as interpreted by me: One view: no focal lung consolidation, no evidence of failure, some aortic plaque appreciated. CT HEAD: Comparison: 09/17/2016 No acute infarct, hemorrhage, mass or edema. Chronic small vessel ischemic disease and senescent changes. Mild mucosal thickening of paranasal sinuses. No acute osseous abnormality. Radiologist: West Cifuentes MD. Laboratory Results 03/23/17 01:20 Red Blood Count 4.51, Mean Corpuscular Volume 89.1, Mean Corpuscular Hemoglobin 31.5, Mean Corpuscular Hemoglobin Concent 35.3, Mean Platelet Volume 9.9, Neutrophils (%) (Auto) 77.5, Lymphocytes (%) (Auto) 21.4, Monocytes (%) (Auto) 0.4, Eosinophils (%) (Auto) 0.0, Basophils (%) (Auto) 0.1, Neutrophils # (Auto) 6.09, Lymphocytes # (Auto) 1.68, Monocytes # (Auto) 0.03, Eosinophils # (Auto) 0.00, Basophils # (Auto) 0.01 03/23/17 01:20 Test 03/23/17 01:20 03/23/17 03:35 White Blood Count 7.86 K/uL (4.8-10.8) Red Blood Count 4.51 M/uL (4.2-5.4) Hemoglobin 14.2 g/dL (12.0-16.0) Hematocrit 40.2 % (37-47) Mean Corpuscular Volume 89.1 fL (80-100) Mean Corpuscular Hemoglobin 31.5 pg (25-34) Mean Corpuscular Hemoglobin Concent 35.3 g/dl (32-36) Platelet Count 420 K/uL (130-400) Mean Platelet Volume 9.9 fL (7.4-10.4) Neutrophils (%) (Auto) 77.5 % Lymphocytes (%) (Auto) 21.4 % Monocytes (%) (Auto) 0.4 % Eosinophils (%) (Auto) 0.0 % Basophils (%) (Auto) 0.1 % Neutrophils # (Auto) 6.09 K/uL (1.4-6.5) Lymphocytes # (Auto) 1.68 K/uL (1.2-3.4) Monocytes # (Auto) 0.03 K/uL (0.11-0.59) Eosinophils # (Auto) 0.00 K/uL (0-0.5) Basophils # (Auto) 0.01 K/uL (0-0.2) RDW Standard Deviation 44.9 fL (36.4-46.3) RDW Coefficient of Variation 13.7 % (11.5-14.5) Immature Granulocyte % (Auto) 0.6 % Immature Granulocyte # (Auto) 0.05 K/uL (0.00-0.02) Prothrombin Time 10.0 SECONDS (9.0-12.0) Prothromb Time International Ratio 1.0 (0.9-1.1) Activated Partial Thromboplast Time 27.4 SECONDS (21.0-31.0) Partial Thromboplastin Ratio 1.1 Anion Gap 8.0 mmol/L (3-11) Est Creatinine Clear Calc Drug Dose 49.9 ml/min Estimated GFR () 72.9 Estimated GFR (Non- 62.9 BUN/Creatinine Ratio 26.3 (10-20) Calcium Level 9.4 mg/dl (8.5-10.1) Magnesium Level 2.2 mg/dl (1.8-2.4) Total Bilirubin 0.4 mg/dl (0.2-1) Direct Bilirubin < 0.1 mg/dl (0-0.2) Aspartate Amino Transf (AST/SGOT) 23 U/L (15-37) Alanine Aminotransferase (ALT/SGPT) 19 U/L (12-78) Alkaline Phosphatase 93 U/L (45-117) Total Creatine Kinase 119 U/L (26-192) Creatine Kinase MB 1.2 ng/ml (0.5-3.6) Creatine Kinase MB Ratio 1.0 (0-3.0) Troponin I < 0.015 ng/ml (0-0.045) Total Protein 8.1 gm/dl (6.4-8.2) Albumin 3.4 gm/dl (3.4-5.0) Urine Color YELLOW Urine Appearance CLOUDY (CLEAR) Urine pH 7.5 (4.5-7.5) Urine Specific [place] 1.015 (1.000-1.030) Urine Protein NEG (NEG) Urine Glucose (UA) NEG (NEG) Urine Ketones 1+ (NEG) Urine Occult Blood NEG (NEG) Urine Nitrite NEG (NEG) Urine Bilirubin NEG (NEG) Urine Urobilinogen NEG (NEG) Urine Leukocyte Esterase NEG (NEG) Urine WBC (Auto) 0 /hpf (0-5) Urine RBC (Auto) 0-4 /hpf (0-4) Urine Hyaline Casts (Auto) 0 /lpf (0-5) Urine Epithelial Cells (Auto) >30 /lpf (0-5) Urine Bacteria (Auto) NEG (NEG) Laboratory results per my review. Medications Administered Medications (Trade) Dose Ordered Sig/Jonas Route Start Time Stop Time Status Last Admin Dose Admin Labetalol HCl (Normodyne IV) 10 mg NOW STAT IV 03/23/17 00:58 03/23/17 01:02 DC 03/23/17 01:27 10 MG Fentanyl Citrate (Fentanyl Inj) 50 mcg NOW STAT IV 03/23/17 00:58 03/23/17 01:02 DC 03/23/17 01:25 50 MCG Labetalol HCl (Normodyne IV) 20 mg NOW STAT IV 03/23/17 02:08 03/23/17 02:09 DC 03/23/17 02:14 20 MG Prochlorperazine Edisylate (Compazine Inj) 5 mg NOW STAT IV 03/23/17 03:09 03/23/17 03:11 DC 03/23/17 03:28 5 MG Hydralazine HCl (HydrALAZINE INJ) 10 mg NOW STAT IV. 03/23/17 03:10 03/23/17 03:11 DC 03/23/17 03:29 10 MG Chlorthalidone (Hygroton Tab) 12.5 mg NOW STAT PO 03/23/17 04:38 03/23/17 04:44 DC 03/23/17 04:57 12.5 MG ECG Per My Interpretation Indication: other (previous stroke recently) Rate (beats per minute): 82 Rhythm: normal sinus Findings: no ectopy, other (likely previous inferior and possible anterior infarcts) Change: The patients electrocardiogram was interpreted by me. ED Course 0054: Past medical records reviewed. The patient was evaluated in room A3. A complete history and physical examination was performed. 0058: Ordered Fentanyl Inj 50mcg IV and Labetalol HCL 10mg IV. 0208: Ordered Labetalol HCL 20mg IV. 0257: I reevaluated the patient, who was still in excruciating pain. The patient questioned why she is urinating so much. She notes that she had a hip injection today. 0309: Ordered Benadryl Inj 25mg IV and Compazine Inj 5mg IV. 0310: Ordered Hydralazine HCL 10mg IV. 0434: I reevaluated the patient, who states she overall feels very week. Her reports that she has similar symptoms every time they go out to eat. She reports that she keeps urinating in the bed. 0438: Ordered chlorthalidone Tab 12.5mg PO. 0446: Upon reevaluation, the patient appeared to have improvement of her symptoms. I discussed findings with her and her . They verbalized agreement of the treatment plan. She was discharged home. Medical Decision Differential diagnosis: Intracranial hemorrhage, intracranial mass, migraine headache, tension headache , sinusitis, meningitis This patient was evaluated and appeared to be in no significant distress. IV access was obtained and laboratory work was drawn. The patient was placed on the monitor technician and found be markedly hypertensive. The patient was given 2 doses of IV labetalol, IV fentanyl 50 g. Patient did receive IV Compazine 5 mg and Benadryl 25 mg. Patient required hydralazine 10 mg IV for blood pressure management. Patient has been elevated for much of the day today. He states her symptoms began after she laid down. Prior to her nap, they went to [facility] for lunch. In retrospect, the patient's episodes always happen after eating out. I did express my concern for hypertensive-related headaches and her salt intake. This happened previously at a restaurant [place] and after lunch during her drive home. Patient's blood pressure was normal in the physician's office the other day. After much discussion and test results, the patient and agreed to the plan for discharge. The patient was able to ambulate without difficulty. She was given chlorthalidone 12.5 mg by mouth. She was given a 2 week supply and asked to follow-up with her PCP this week she will require additional laboratory work and a blood pressure recheck. The patient was given information on a low-sodium diet. She will return to the ER immediately for worsening of symptoms or any medical concerns. Medication Reconcilliation Current Medication List: was personally reviewed by me Blood Pressure Screening Patient's blood pressure: Elevated blood pressure Blood pressure disposition: Referred to PCP Impression Primary Impression: Headache Additional Impression: Hypertension Scribe Attestation The scribe's documentation has been prepared under my direction and personally reviewed by me in its entirety. I confirm that the note above accurately reflects all work, treatment, procedures, and medical decision making performed by me. Departure Information Dispostion Home / Self-Care Prescriptions Chlorthalidone (Chlorthalidone) 25 Mg Tab 12.5 MG PO DAILY, #15 TAB Prov: Carla Guillen M.D. 03/23/17 Referrals Madai Leonard, C.R.N.P. (PCP) Forms HOME CARE DOCUMENTATION FORM, IMPORTANT VISIT INFORMATION Patient Instructions My [facility] Additional Instructions Diagnosis: headache, hypertension Chlorthalidone 12.5 mg daily Continue Cozaar as prescribed. Minimize salt in your diet, less than 2000 mg daily. Follow-up with your PCP this week for blood pressure recheck and laboratory work. Go to your Holter monitor appointment and echocardiogram later today as scheduled. Return to the emergency department for worsening of symptoms or any medical concerns. Problem Qualifiers
[2017-03-23 01:42] LABS: PTT PATIENT 27.4 SECONDS (21.0-31.0)
[2017-03-23 01:44] LABS: BASO % 0.1 %; BASO ABS # 0.01 K/uL (0-0.2); HEMATOCRIT 40.2 % (37-47); HEMOGLOBIN 14.2 g/dL (12.0-16.0); IG# 0.05 K/uL (0.00-0.02); LYMPH % 21.4 %; LYMPH ABS # 1.68 K/uL (1.2-3.4); MEAN CELL VOLUME 89.1 fL (80-100); MEAN CORPUSCULAR HEMOGLOBIN 31.5 pg (25-34); MEAN CORPUSCULAR HGB CONC 35.3 g/dl (32-36); MEAN PLATELET VOLUME 9.9 fL (7.4-10.4); MONO % 0.4 %; MONO ABS # 0.03 K/uL (0.11-0.59); NEUT % 77.5 %; NEUT ABS # 6.09 K/uL (1.4-6.5); PLATELET COUNT 420 K/uL (130-400); RED CELL DISTRIBUTION WIDTH CV 13.7 % (11.5-14.5); RED CELL DISTRIBUTION WIDTH SD 44.9 fL (36.4-46.3); WHITE BLOOD COUNT 7.86 K/uL (4.8-10.8)
[2017-03-23 01:49] LABS: ALBUMIN 3.4 gm/dl (3.4-5.0); ALT/SGPT 19 U/L (12-78); AST/SGOT 23 U/L (15-37); BLOOD UREA NITROGEN 23 mg/dl (7-18); CALCIUM 9.4 mg/dl (8.5-10.1); CARBON DIOXIDE 24 mmol/L (21-32); CREATININE 0.87 mg/dl (0.60-1.20); GLUCOSE 162 mg/dl (70-99); POTASSIUM 3.9 mmol/L (3.5-5.1); SODIUM 137 mmol/L (136-145)
[2017-03-23 02:00] LABS: ALKALINE PHOSPHATASE 93 U/L (45-117); CKMB 1.2 ng/ml (0.5-3.6); TOTAL PROTEIN 8.1 gm/dl (6.4-8.2)
[2017-03-23] MEDS ORDERED: PROCHLORPERAZINE 5 MG/ML 2 ML VIAL IV STA (03:09)
[2017-03-23] MEDS: DiphenhydrAMINE HCL 50 MG/ML VIAL IV STA ×2 (03:09→03:29)
[2017-03-23] MEDS ORDERED: HydrALAZINE HCL 20 MG/ML VIAL IV. STA (03:10)
[2017-03-23] MEDS ORDERED: CHLORTHALIDONE 25 MG TAB PO STA (04:38)
[2017-03-23] MEDS ORDERED: HYG25 PO (04:50)
[2017-03-23 05:02] VITALS: BP 153/85; PULSE 68; O2SAT 96
--- NOTE | 2017-03-23 06:42 | DIAGNOSTIC IMAGING REPORT ---
CHEST ONE VIEW PORTABLE HISTORY: 82 years-old Female HTN acute hypertension. COMPARISON: Chest radiograph 01/22/2017 TECHNIQUE: Portable AP view of the chest FINDINGS: Cardiac silhouette is again mildly enlarged. Atherosclerosis and ectasia of the thoracic aorta redemonstrated. Unchanged appearing right apical and left basilar reticular opacities suggest areas of scarring. There is no pneumothorax, pleural effusion, focal airspace consolidation or overt pulmonary edema. Degenerative changes are seen within the shoulders and spine. Bones appear grossly intact. IMPRESSION: No acute process. The above report was generated using voice recognition software. It may contain grammatical, syntax or spelling errors. Electronically signed by: Curtis Olivarez M.D. 03/23/2017 6:40 AM Dictated Date/Time: 03/23/2017 6:38 AM
--- NOTE | 2017-03-23 07:15 | DIAGNOSTIC IMAGING REPORT ---
HEAD WITHOUT CONTRAST (CT) CLINICAL HISTORY: 82 years-old Female presenting with headache, recent ICH. TECHNIQUE: Multidetector CT imaging of the head was performed without the use of intravenous contrast. IV contrast: None. A dose lowering technique was used consistent with the principles of ALARA (as low as reasonably achievable). COMPARISON: MR brain from 03/15/[address] head from 09/17/2016. CT DOSE (mGy.cm): The estimated cumulative dose is 614.27 mGy.cm. FINDINGS: L[employer]ating Machine Tender topogram: Unremarkable. Proportional ventricular and sulcal prominence, likely age-related parenchymal volume loss. Periventricular and subcortical white matter hypoattenuation, nonspecific but likely indicative of chronic small vessel ischemic change. Hypodensity in the region of the left periventricular white matter and the anterior limb of the left internal capsule consistent with recently demonstrated subacute infarct. No hyperattenuation to suggest acute hemorrhage. No mass effect or midline shift. No hemorrhage or acute territorial infarct. No extra-axial fluid collection. Paranasal sinuses and mastoid air cells clear. Calvarium intact. IMPRESSION: 1. Chronic small vessel ischemic change. Subacute left periventricular white matter/internal capsule infarct. No acute hemorrhage. No acute intracranial abnormality. Electronically signed by: Austin Bowles M.D. 03/23/2017 7:13 AM Dictated Date/Time: 03/23/2017 6:44 AM
== END 2017-03-23 05:03 | disposition home or self-care (01) ==
LOC: EDBD 00:40 → C.EDA 00:42
DX: R51 Headache (principal); I10 Essential (primary) hypertension; E66.9 Obesity, unspecified; Z93.3 Colostomy status; Z79.899 Other long term (current) drug therapy; Z85.3 Personal history of malignant neoplasm of breast; Z87.19 Personal history of other diseases of the digestive system; Z88.1 Allergy status to other antibiotic agents; Z88.5 Allergy status to narcotic agent; Z88.8 Allergy status to other drugs, medicaments and biological substances; Z82.49 Family history of ischemic heart disease and other diseases of the circulatory system

== ENCOUNTER → 2017-04-24 | Outpatient (CLI) | payer OTHER, BC ==
[~2017-04-24] MED LIST changes: +HYG25 PO
--- NOTE | 2017-04-25 14:36 | EEG Procedure Note ---
EEG Procedure Note Date of Service Apr 24, 2017. Start / End Times Start Time: 2:28 PM End Time: 2:48 PM Referring Physician Mary Ann Graham History This is a 82-year-old female with history of stroke and spells of decreased awareness. EEG for further evaluation of possible seizure etiology. Home Medication List Scheduled Ascorbic Acid (Vitamin C), 500 MG PO DAILY Calcium (Calcium), 600 MG PO Q2D Cetirizine (Zyrtec), 5 MG PO QPM Chlorthalidone (Chlorthalidone), 12.5 MG PO DAILY Cholecalciferol (Vitamin D 1000 Unit), 2,000 INTER.UNIT PO QPM Ezetimibe (Zetia), 10 MG PO QPM Losartan Potassium (Cozaar), 50 MG PO DAILY Multivitamin (Multivitamin), 1 TAB PO DAILY Prednisone (Prednisone), 50 MG PO DAILY Probiotic Product (Probiotic), 1 CAP PO QPM Ranitidine HCl (Ranitidine HCl), 150 MG PO BID Scheduled PRN Dicyclomine HCl (Dicyclomine HCl), 5 MG PO TID PRN for cramping Hydrocodone/Acetaminophen 5MG/325MG ([place] 5MG/325MG), 0.5 TABLET PO HS PRN for Pain Polyethylene Glycol 3350 (Miralax), 17 GM PO DAILY PRN for Constipation Description This is a 21 electrode EEG with a single channel dedicated to limited EKG. The electrodes were placed in accordance with the International 10-20 system. At the start of the recording the patient was in an awake state. Background was well organized and composed of mixed alpha and beta frequencies. There was mild continuous theta slowing over the left hemisphere. There was a symmetric well-formed moderate amplitude 8-9 Hz posterior dominant rhythm that was reactive to eye opening and closure. Hyperventilation was not done. Intermittent photic stimulation at various frequencies produced no abnormalities. There was no state changes or sleep transients. Interpretation This is an abnormal routine EEG secondary to mild continuous theta slowing over the left hemisphere. There was no electrographic seizures or epileptiform discharges. Clinical Correlation This EEG indicates a structural or functional cerebral dysfunction over the left hemisphere. This could be consistent with the patient's history of old left hemispheric stroke.
== END | disposition home or self-care (01) ==
LOC: C.NEUR 14:12
PROVIDERS: ATTEND Psychiatry & Neurology Neurology
DX: I61.9 Nontraumatic intracerebral hemorrhage, unspecified (principal); R68.89 Other general symptoms and signs

== ENCOUNTER 2017-04-30 17:39 | Emergency (ER) | payer OTHER, BC ==
[~2017-04-30] VITALS: Ht 152.4 cm; Wt 83.0 kg
[2017-04-30 17:43] VITALS: Ht 152.4 cm; Wt 83.0 kg
[2017-04-30] MEDS ORDERED: ASPIRIN 81 MG CHEW PO STA (17:51)
--- NOTE | 2017-04-30 17:55 | EMERGENCY ROOM VISIT NOTE ---
History Report prepared by Amisha: Zuri Caceres Under the Supervision of: Dr. Guero Swain D.O. First contact with patient: 17:46 Chief Complaint: CHEST PAIN Stated Complaint: CHEST PAINS AND DOWN ARM Nursing Triage Summary: pt c/o left sided abd pain into her chest and left arm started at 2pm no sob no other complaints History of Present Illness The patient is a 82 year old female who presents to the Emergency Room with complaints of chest discomfort. The patient states that she noticed discomfort on the left side of her chest. She states that this pain is crampy in nature and intermittent. She states it goes into her axilla and down her left arm. The patient states that she was walking at the time but does not feel it was related to exertion. The patient denies having any shortness of breath. She denies having any cough or lower extremity swelling. She has no recent injuries. She denies having any swelling but complains of some tingling in the left arm. Currently she has no pain in her chest or her arm. She states that she noticed her blood pressure was elevated. She has never had a heart attack as far she knows and has not had a heart catheterization. She was recently at our facility for strokelike symptoms. She states that she had an echocardiogram early last month. Source of History: patient Onset: prior to arrival Position: chest (left) Quality: cramping Timing: intermittent Associated Symptoms: No cough, No SOB Note: Associated symptoms include: pain from her axilla and down her left arm and some tingling in the left arm. Patient denies: lower extremity swelling or recent injuries. Review of Systems See HPI for pertinent positives & negatives. A total of 10 systems reviewed and were otherwise negative. 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 (2) History of section (3) History of lumpectomy (4) History of splenectomy Family History Hypertension Social History Smoking Status: Never Smoker Alcohol Use: none Drug Use: none Marital Status: Housing Status: lives with family Occupation Status: retired Current/Historical Medications Scheduled Ascorbic Acid (Vitamin C), 500 MG PO DAILY Calcium (Calcium), 600 MG PO Q2D Cetirizine (Zyrtec), 5 MG PO QPM Chlorthalidone (Chlorthalidone), 12.5 MG PO DAILY Cholecalciferol (Vitamin D 1000 Unit), 2,000 INTER.UNIT PO QPM Ezetimibe (Zetia), 10 MG PO QPM Losartan Potassium (Cozaar), 50 MG PO DAILY Multivitamin (Multivitamin), 1 TAB PO DAILY Prednisone (Prednisone), 50 MG PO DAILY Probiotic Product (Probiotic), 1 CAP PO QPM Ranitidine HCl (Ranitidine HCl), 150 MG PO BID Scheduled PRN Dicyclomine HCl (Dicyclomine HCl), 5 MG PO TID PRN for cramping Hydrocodone/Acetaminophen 5MG/325MG ([place] 5MG/325MG), 0.5 TABLET PO HS PRN for Pain Polyethylene Glycol 3350 (Miralax), 17 GM PO DAILY PRN for Constipation Allergies Coded Allergies: Vancomycin (Verified Allergy, Intermediate, rash, 01/22/17) Diphenhydramine (Verified Allergy, Mild, Redness, 01/22/17) Amoxicillin (Verified Allergy, Unknown, bad reaction/glands swollen puffed up, 01/22/17) Clavulanic Acid (Verified Allergy, Unknown, 01/22/17) Codeine (Verified Allergy, Unknown, 01/22/17) Physical Exam Vital Signs Date Time Temp Pulse Resp B/P (MAP) Pulse Ox O2 Delivery O2 Flow Rate FiO2 04/30/17 19:20 36.8 93 18 143/82 95 04/30/17 18:49 82 18 132/94 95 Room Air 04/30/17 18:05 88 04/30/17 17:59 95 Room Air 04/30/17 17:59 95 Room Air 04/30/17 17:43 36.8 89 18 181/109 96 Room Air Physical Exam GENERAL: Patient is awake alert in no acute distress patient is resting comfortably and showing no signs of anxiety EYES: The conjunctivae are clear. The pupils are round and reactive. EARS, NOSE, MOUTH AND THROAT: The nose is without any evidence of any deformity. Mucous membranes are moist tongue is midline NECK: The neck is nontender and supple. RESPIRATORY: Normal respiratory effort is noted there is no evidence of wheezing rhonchi or rales CARDIOVASCULAR: Regular rate and rhythm noted there no murmurs rubs or gallops normal S1 normal S2 GASTROINTESTINAL: The abdomen is soft. Bowel sounds are present in all quadrants. Abdomen is nontender MUSCULOSKELETAL/EXTREMITIES: There is no evidence of gross deformity full range of motion is noted in the hips and shoulders SKIN: There is no obvious evidence of any rash. Trace pedal edema was noted bilaterally. There is no swelling in the left axilla. Pulses were symmetric in both upper extremities. NEUROLOGIC: Patient is awake alert and oriented x3 . Medical Decision & Procedures ER Provider Diagnostic Interpretation: X-ray results as stated below per interpretation by me and the radiologist. CHEST ONE VIEW PORTABLE CLINICAL HISTORY: 82 years-old Female presenting with CHEST PAIN. TECHNIQUE: Portable upright AP view of the chest was obtained. COMPARISON: 03/23/2017. FINDINGS: Atherosclerosis of the aortic arch. Cardiac silhouette top normal in size. Lungs and pleural spaces clear. Degenerative changes of the right shoulder. Upper abdomen normal. IMPRESSION: 1. No acute cardiopulmonary disease. Electronically signed by: Austin Bowles M.D. 04/30/2017 6:17 PM Dictated Date/Time: 04/30/2017 6:17 PM Laboratory Results 04/30/17 18:00 Red Blood Count 4.44, Mean Corpuscular Volume 91.7, Mean Corpuscular Hemoglobin 32.2, Mean Corpuscular Hemoglobin Concent 35.1, Mean Platelet Volume 9.8, Neutrophils (%) (Auto) 51.1, Lymphocytes (%) (Auto) 38.6, Monocytes (%) (Auto) 8.6, Eosinophils (%) (Auto) 1.0, Basophils (%) (Auto) 0.4, Neutrophils # (Auto) 5.86, Lymphocytes # (Auto) 4.42, Monocytes # (Auto) 0.99, Eosinophils # (Auto) 0.11, Basophils # (Auto) 0.05 04/30/17 18:00 Test 04/30/17 18:00 04/30/17 18:57 White Blood Count 11.46 K/uL (4.8-10.8) Red Blood Count 4.44 M/uL (4.2-5.4) Hemoglobin 14.3 g/dL (12.0-16.0) Hematocrit 40.7 % (37-47) Mean Corpuscular Volume 91.7 fL (80-100) Mean Corpuscular Hemoglobin 32.2 pg (25-34) Mean Corpuscular Hemoglobin Concent 35.1 g/dl (32-36) Platelet Count 354 K/uL (130-400) Mean Platelet Volume 9.8 fL (7.4-10.4) Neutrophils (%) (Auto) 51.1 % Lymphocytes (%) (Auto) 38.6 % Monocytes (%) (Auto) 8.6 % Eosinophils (%) (Auto) 1.0 % Basophils (%) (Auto) 0.4 % Neutrophils # (Auto) 5.86 K/uL (1.4-6.5) Lymphocytes # (Auto) 4.42 K/uL (1.2-3.4) Monocytes # (Auto) 0.99 K/uL (0.11-0.59) Eosinophils # (Auto) 0.11 K/uL (0-0.5) Basophils # (Auto) 0.05 K/uL (0-0.2) RDW Standard Deviation 45.9 fL (36.4-46.3) RDW Coefficient of Variation 13.5 % (11.5-14.5) Immature Granulocyte % (Auto) 0.3 % Immature Granulocyte # (Auto) 0.03 K/uL (0.00-0.02) Anion Gap 10.0 mmol/L (3-11) Est Creatinine Clear Calc Drug Dose 39.3 ml/min Estimated GFR () 55.5 Estimated GFR (Non- 47.9 BUN/Creatinine Ratio 21.0 (10-20) Calcium Level 9.0 mg/dl (8.5-10.1) Total Bilirubin 0.3 mg/dl (0.2-1) Direct Bilirubin < 0.1 mg/dl (0-0.2) Aspartate Amino Transf (AST/SGOT) 26 U/L (15-37) Alanine Aminotransferase (ALT/SGPT) 24 U/L (12-78) Alkaline Phosphatase 98 U/L (45-117) Troponin I < 0.015 ng/ml (0-0.045) Total Protein 7.5 gm/dl (6.4-8.2) Albumin 3.3 gm/dl (3.4-5.0) Lipase 272 U/L (73-393) Prothrombin Time 10.0 SECONDS (9.0-12.0) Prothromb Time International Ratio 1.0 (0.9-1.1) Activated Partial Thromboplast Time 26.3 SECONDS (21.0-31.0) Partial Thromboplastin Ratio 1.0 Laboratory results per my review. Medications Administered Medications (Trade) Dose Ordered Sig/Jonas Route Start Time Stop Time Status Last Admin Dose Admin Aspirin (Aspirin Chew) 324 mg NOW STAT PO 04/30/17 17:51 04/30/17 17:52 DC 04/30/17 17:59 324 MG ECG Per My Interpretation Indication: chest pain Rate (beats per minute): 91 Rhythm: normal sinus Findings: ST depression (Lateral), T-wave inversion (Inferior), no ectopy Comparison ECG Date: ST segment depression is new compared to 03/23/2017 ED Course 1750: The patient was evaluated in room C1. A complete history and physical examination were performed. 1750: Ordered Aspirin 324mg PO. 1901: I reevaluated the patient, who was resting. I discussed test findings with her and the treatment plan. She states that she does not want to stay in the hospital. The patient will discharged. Medical Decision Prior records/ancillary studies reviewed. Triage Nursing notes reviewed. Additional history obtained from the patient's significant other. The patient's history was concerning for chest pain. Differential diagnosis: Etiologies such as cardiac ischemia, aortic dissection, pulmonary embolism, pneumonia, pneumothorax, musculoskeletal, infections, pericarditis, myocarditis , esophageal rupture, gastrointestinal, as well as others were entertained. The patient is an 82-year-old female who presented to the emergency department for an evaluation of chest pain. The patient's chest pain appeared to be in her left axilla and left chest wall but also in her left arm. It did not appear to be associated with exertion. The patient did not have pain upon arrival to the emergency department. I discussed patient's laboratory and radiographic studies with her. She was treated with aspirin in the emergency department. I also discussed the limitations of the emergency department workup for chest pain with the patient. I recommended that she be evaluated by the hospitalist for inpatient management and for serial troponin measurements as well as likely a provocative test such as a stress test but the patient did not wish to stay in the hospital. I explained to her that I felt she was very high risk especially given her past medical history and her findings in the emergency department but she did not wish to stay in the hospital. She understood that she could have an acute coronary event. She did have a normal troponin. She was encouraged to rest and avoid any strenuous activities. She was also encouraged to continue all medications as prescribed and call her primary care physician in the morning to schedule a stress test. Otherwise she was encouraged to return the emergency department immediately if symptoms change worsen or the need arises. Medication Reconcilliation Current Medication List: was personally reviewed by me Blood Pressure Screening Patient's blood pressure: Normal blood pressure Blood pressure disposition: Did not require urgent referral Impression Primary Impression: Chest pain Additional Impression: Abnormal EKG Scribe Attestation The scribe's documentation has been prepared under my direction and personally reviewed by me in its entirety. I confirm that the note above accurately reflects all work, treatment, procedures, and medical decision making performed by me. Departure Information Dispostion Home / Self-Care Referrals Madai Leonard, C.R.N.P. (PCP) Forms Call Back Authorization, HOME CARE DOCUMENTATION FORM, IMPORTANT VISIT INFORMATION Patient Instructions My [facility] Additional Instructions Continue all medications as prescribed. Call your family doctor as soon as possible to set up a follow-up appointment. I would recommend further testing such as a stress test to further evaluate the cause of your discomfort. Rest and avoid any strenuous activity. Return to the emergency department immediately if symptoms change worsen or the need arises. Problem Qualifiers Primary Impression: Chest pain Chest pain type: unspecified Qualified Codes: R07.9 - Chest pain, unspecified
[2017-04-30 17:59] VITALS: O2SAT 95
[2017-04-30 18:15] LABS: BASO % 0.4 %; BASO ABS # 0.05 K/uL (0-0.2); EOS ABS # 0.11 K/uL (0-0.5); HEMATOCRIT 40.7 % (37-47); HEMOGLOBIN 14.3 g/dL (12.0-16.0); IG# 0.03 K/uL (0.00-0.02); LYMPH % 38.6 %; LYMPH ABS # 4.42 K/uL (1.2-3.4); MEAN CELL VOLUME 91.7 fL (80-100); MEAN CORPUSCULAR HEMOGLOBIN 32.2 pg (25-34); MEAN CORPUSCULAR HGB CONC 35.1 g/dl (32-36); MEAN PLATELET VOLUME 9.8 fL (7.4-10.4); MONO % 8.6 %; MONO ABS # 0.99 K/uL (0.11-0.59); NEUT % 51.1 %; NEUT ABS # 5.86 K/uL (1.4-6.5); PLATELET COUNT 354 K/uL (130-400); RED CELL DISTRIBUTION WIDTH CV 13.5 % (11.5-14.5); RED CELL DISTRIBUTION WIDTH SD 45.9 fL (36.4-46.3); WHITE BLOOD COUNT 11.46 K/uL (4.8-10.8)
--- NOTE | 2017-04-30 18:19 | DIAGNOSTIC IMAGING REPORT ---
CHEST ONE VIEW PORTABLE CLINICAL HISTORY: 82 years-old Female presenting with CHEST PAIN. TECHNIQUE: Portable upright AP view of the chest was obtained. COMPARISON: 03/23/2017. FINDINGS: Atherosclerosis of the aortic arch. Cardiac silhouette top normal in size. Lungs and pleural spaces clear. Degenerative changes of the right shoulder. Upper abdomen normal. IMPRESSION: 1. No acute cardiopulmonary disease. Electronically signed by: Austin Bowles M.D. 04/30/2017 6:17 PM Dictated Date/Time: 04/30/2017 6:17 PM
[2017-04-30 18:57] LABS: ALBUMIN 3.3 gm/dl (3.4-5.0); ALKALINE PHOSPHATASE 98 U/L (45-117); ALT/SGPT 24 U/L (12-78); AST/SGOT 26 U/L (15-37); BLOOD UREA NITROGEN 23 mg/dl (7-18); CARBON DIOXIDE 26 mmol/L (21-32); CREATININE 1.09 mg/dl (0.60-1.20); GLUCOSE 136 mg/dl (70-99); LIPASE 272 U/L (73-393); POTASSIUM 3.8 mmol/L (3.5-5.1); SODIUM 138 mmol/L (136-145); TOTAL PROTEIN 7.5 gm/dl (6.4-8.2)
[2017-04-30 19:13] LABS: PTT PATIENT 26.3 SECONDS (21.0-31.0)
[2017-04-30 19:20] VITALS: BP 143/82; PULSE 93; TEMP 36.8; O2SAT 95
== END 2017-04-30 19:21 | disposition home or self-care (01) ==
LOC: C.EDB 17:40 → C.EDC 19:21
DX: R07.9 Chest pain, unspecified (principal); R94.31 Abnormal electrocardiogram [ECG] [EKG]; I16.9 Hypertensive crisis, unspecified; Z82.49 Family history of ischemic heart disease and other diseases of the circulatory system; Z79.51 Long term (current) use of inhaled steroids; K52.9 Noninfective gastroenteritis and colitis, unspecified; Z88.1 Allergy status to other antibiotic agents; Z88.0 Allergy status to penicillin; Z88.6 Allergy status to analgesic agent

== ENCOUNTER → 2017-05-09 | Outpatient (CLI) | payer OTHER, BC ==
[~2017-05-09] MED LIST changes: +ATROPINE SULFATE 0.1 MG/ML 5ML SYR ONE; +DOBUTamine HCL 12.5 MG/ML 20 ML VIAL ONE; +METOPROLOL TARTRATE 1 MG/ML VIAL ONE
--- NOTE | 2017-05-09 17:10 | DOBUTAMINE ECHO ---
*NOTICE TO RECEIVING [employer] This information is strictly Confidential and protected under [place] law. [place] law prohibits you from making any further disclosure of this information unless further disclosure is expressly permitted by the written consent of the person to whom it pertains or is authorized by law. A general authorization for the release of medical or other information is not sufficient for this purpose. Hospital accepts no responsibility if the information is made available to any other person, INCLUDING THE PATIENT. Interpretation Summary * Name: FLO DYE Study Date: 05/09/2017 09:54 AM BP: 150/66 mmHg * Patient Location: [facility] HR: 86 * : 1935 (M/d/yyyy) Gender: Female Height: 60 in * Age: 82 yrs Ethnicity: [place] Weight: 180 lb * Ordering Physician: Madai Leonard * Referring Physician: Madai Leonard * Performed By: Adebayo Alex RCS * * Reason For Study: Chest Pain Radiating to Arm * BSA: 1.8 m2 * -- Conclusions -- * 1. Negative dobutamine stress echocardiogram for myocardial ischemia at 92% predicted maximum. * 2. No dobutamine induced chest pain. * 3. No EKG changes. * 4. Baseline echocardiogram notes normal left ventricular systolic function and borderline left ventricular hypertrophy. Procedure Details * DOBUTAMINE ECHO, CPT#75508 Left Ventricle * The left ventricle is normal in size. * There is borderline concentric left ventricular hypertrophy. * Left ventricular systolic function is normal. * Resting wall motion: Normal. Stress wall motion: Appropriate increase in Left ventricular systolic function and decrease in cavity size. No stress induced segmental wall motion abnormalities. Stress Parameters * Normal baseline electrocardiogram. * Stress ECG: No ST changes. No arrhythmias. * Rest heart rate was '86' BPM. * Rest blood pressure was '150/66' * Maximum heart rate achieved was 130 bpm. * Maximum heart rate was 92 % of maximum age-predicted heart rate. * Maximum blood pressure was '153/57' * Maximum Dobutamine infusion rate was '20' mcg/kg/min. * Dobutamine infusion was terminated due to achieving target heart rate * A total of 5 mg of IV Metoprolol was administered to reverse Dobutamine-induced tachycardia. * The patient did not exhibit any symptoms during drug infusion. * Normal blood pressure response to exercise.
== END | disposition home or self-care (01) ==
LOC: C.CPL 09:09
PROVIDERS: ATTEND Nurse Practitioner
DX: R07.89 Other chest pain (principal)

== ENCOUNTER 2017-08-10 10:22 | Inpatient (IN) | payer OTHER, BC ==
[~2017-08-10] VITALS: Ht 152.4 cm; Wt 81.2 kg
[2017-08-10] VITALS (14 sets, daily range): BP systolic 108–136; BP diastolic 67–83; PULSE 64–105; TEMP 36.6–36.9; O2SAT 91–94; Ht 152.4 cm; Wt 81.2 kg
[~2017-08-10 10:22] MED LIST changes: +AMOX500C3 PO; -ATROPINE SULFATE 0.1 MG/ML 5ML SYR ONE; -DOBUTamine HCL 12.5 MG/ML 20 ML VIAL ONE; -METOPROLOL TARTRATE 1 MG/ML VIAL ONE; -PRED50TA PO
[2017-08-10] MEDS ORDERED: SODIUM CHLORIDE 0.9% 1000ML 1,000 ML IV STA (10:27)
[2017-08-10] MEDS ORDERED: ONDANSETRON INJ 2 MG/ML 2 ML VIAL IV STA ×2 (10:27→14:47)
[2017-08-10] MEDS ORDERED: PLV75 PO (11:02)
[2017-08-10] MEDS ORDERED: OXYB5TAB PO (11:02)
[2017-08-10] MEDS ORDERED: MoRPHine SULFATE 2 MG/ML CARP IV STA ×2 (11:03→13:14)
[2017-08-10 11:05] LABS: BASO % 0.5 %; BASO ABS # 0.04 K/uL (0-0.2); EOS % 0.9 %; EOS ABS # 0.07 K/uL (0-0.5); HEMATOCRIT 39.5 % (37-47); HEMOGLOBIN 13.2 g/dL (12.0-16.0); IG# 0.02 K/uL (0.00-0.02); LYMPH % 24.7 %; LYMPH ABS # 1.92 K/uL (1.2-3.4); MEAN CELL VOLUME 90.6 fL (80-100); MEAN CORPUSCULAR HEMOGLOBIN 30.3 pg (25-34); MEAN CORPUSCULAR HGB CONC 33.4 g/dl (32-36); MEAN PLATELET VOLUME 9.6 fL (7.4-10.4); MONO % 10.7 %; MONO ABS # 0.83 K/uL (0.11-0.59); NEUT % 62.9 %; NEUT ABS # 4.89 K/uL (1.4-6.5); PLATELET COUNT 392 K/uL (130-400); RED CELL DISTRIBUTION WIDTH CV 13.4 % (11.5-14.5); RED CELL DISTRIBUTION WIDTH SD 44.9 fL (36.4-46.3); WHITE BLOOD COUNT 7.77 K/uL (4.8-10.8)
[2017-08-10] MEDS ORDERED: MoRPHine SULFATE 4 MG/ML 1 ML CARP\\VIAL ONE ×2 (11:05→13:28)
[2017-08-10 11:27] LABS: ALKALINE PHOSPHATASE 94 U/L (45-117); ALT/SGPT 27 U/L (12-78); AST/SGOT 31 U/L (15-37); BLOOD UREA NITROGEN 18 mg/dl (7-18); CALCIUM 8.4 mg/dl (8.5-10.1); CARBON DIOXIDE 29 mmol/L (21-32); CREATININE 0.95 mg/dl (0.60-1.20); GLUCOSE 119 mg/dl (70-99); LIPASE 155 U/L (73-393); POTASSIUM 4.1 mmol/L (3.5-5.1); SODIUM 136 mmol/L (136-145)
--- NOTE | 2017-08-10 11:29 | EMERGENCY ROOM VISIT NOTE ---
History Report prepared by Amisha: Malinda Martel Under the Supervision of: Dr. Carla Guillen M.D. First contact with patient: 10:25 Chief Complaint: ILLNESS Stated Complaint: NAUSEA/FLANK PAIN/NEAR SYNCOPE History of Present Illness The patient is an 82 year old female who presents to the Emergency Room with complaints of persistent dizziness starting yesterday. The patient felt unwell yesterday. She slept throughout the day. She felt dizzy with changing position and felt like she might pass out. She was nauseous and vomiting. Today she started having left arm pain and weakness which is improving. She denies any chest pain or SOB. She notes that she had a tooth extracted 3 days ago. The day after she started having some dental pain. She still has some soreness to the extraction site. She is taking hydrocodone for the pain. She has a colostomy which has been functioning normally. She is not on aspirin. She denies any history of heart disease. Source of History: patient, nursing staff Onset: yesterday Position: head Quality: other (dizziness) Timing: other (persistent) Associated Symptoms: + nausea, + vomiting, + fatigue, + weakness, No chest pain, No SOB Note: Pt reports left arm pain. Review of Systems See HPI for pertinent positives & negatives. A total of 10 systems reviewed and were otherwise negative. 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 (2) History of section (3) History of lumpectomy (4) History of splenectomy Family History Hypertension Social History Smoking Status: Never Smoker Alcohol Use: none Drug Use: none Marital Status: Housing Status: lives with family Occupation Status: retired Current/Historical Medications Scheduled Amoxicillin (Amoxil), 500 MG PO BID Ascorbic Acid (Vitamin C), 500 MG PO DAILY Calcium (Calcium), 600 MG PO Q2D Cetirizine (Zyrtec), 5 MG PO QPM Cholecalciferol (Vitamin D 1000 Unit), 2,000 INTER.UNIT PO QPM Clopidogrel Bisulfate (Clopidogrel), 75 MG PO DAILY Ezetimibe (Zetia), 10 MG PO QPM Losartan Potassium (Cozaar), 50 MG PO DAILY Multivitamin (Multivitamin), 1 TAB PO DAILY Oxybutynin Chloride (Oxybutynin Chloride Er), 5 MG PO DAILY Probiotic Product (Probiotic), 1 CAP PO QPM Scheduled PRN Hydrocodone/Acetaminophen 5MG/325MG (Buna 5MG/325MG), 0.5 TABLET PO HS PRN for Pain Polyethylene Glycol 3350 (Miralax), 17 GM PO DAILY PRN for Constipation Allergies Coded Allergies: Vancomycin (Verified Allergy, Intermediate, rash, 08/10/17) Diphenhydramine (Verified Allergy, Mild, Redness, 08/10/17) Amoxicillin (Verified Allergy, Unknown, bad reaction/glands swollen puffed up, 08/10/17) Clavulanic Acid (Verified Allergy, Unknown, 08/10/17) Codeine (Verified Allergy, Unknown, 08/10/17) Physical Exam Vital Signs Date Time Temp Pulse Resp B/P (MAP) Pulse Ox O2 Delivery O2 Flow Rate FiO2 08/10/17 16:06 100 16 143/100 95 Room Air 08/10/17 15:44 88 16 161/98 98 Room Air 08/10/17 15:05 85 16 177/97 97 Room Air 08/10/17 12:26 69 20 156/91 96 Room Air 08/10/17 11:10 73 20 166/100 96 Room Air 08/10/17 10:56 77 08/10/17 10:47 73 20 166/93 95 86 175/107 82 175/123 08/10/17 10:33 36.8 70 18 148/92 93 Room Air Physical Exam Vital signs reviewed. General: Elderly, generally well-appearing female, in no significant distress. HEENT: No scleral icterus, PERRLA, neck supple. Atraumatic. No significant facial swelling. Cardiovascular: Regular rate and rhythm, no extra sounds. Pulmonary: Clear to auscultation bilaterally, normal work of breathing. Abdomen: Soft, nontender, nondistended, positive bowel sounds. Musculoskeletal: Atraumatic, no peripheral edema. No pain with ROM of the LUE. Neurologic: Patient awake alert and oriented x 3, full strength in all 4 extremities. Cranial nerves 2 through 12 grossly intact. Skin: Warm, dry, no rash Medical Decision & Procedures ER Provider Diagnostic Interpretation: X-ray results as stated below per interpretation by me and the radiologist. Radiology results as stated below per my review and radiologist interpretation: KUB CLINICAL HISTORY: vomiting COMPARISON STUDY: October 2013 FINDINGS: There is no pathologic bowel dilatation. There is a left lower quadrant ostomy. There are no calcifications suspicious for renal calculi. Pelvic basin calcifications remain similar and likely represent phleboliths. There is a mild lumbar spinal curvature convex to the right. Degenerative changes are present within the lumbar spine IMPRESSION: No evidence of pathologic bowel dilatation. Electronically signed by: Bc Garcia M.D. 08/10/2017 12:03 PM Dictated Date/Time: 08/10/2017 12:02 PM HEAD WITHOUT CONTRAST (CT) CT DOSE: 537.48 mGy.cm HISTORY: Mental status change vertigo, vomiting TECHNIQUE: Multiaxial CT images of the head were performed without the use of intravenous contrast. A dose lowering technique was utilized adhering to the principles of ALARA. Comparison: 03/23/2017. MRI brain 03/15/2017. CT brain 09/17/2016 Findings: Trace amount of fluid within left maxillary sinus. Unchanged polypoid opacification of the sphenoid sinus with a slight expansile component. This is unchanged. Moderate chronic small vessel change of aging. Small old left periventricular infarct. Old pre-existing anterior left occipital infarct. No evidence for acute intracranial hemorrhage. No evidence of midline shift. Impression: 1. Mild age-related atrophy and chronic small vessel change. 2. 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 3. Stable polypoid opacification of the sphenoid sinus which of been described previously. 4. Trace fluid within the left maxillary sinus. The above report was generated using voice recognition software. It may contain grammatical, syntax or spelling errors. Electronically signed by: Kurt Rosas M.D. 08/10/2017 11:31 AM Dictated Date/Time: 08/10/2017 11:25 AM Laboratory Results Test 08/10/17 10:45 08/10/17 12:18 Immature Granulocyte % (Auto) 0.3 % White Blood Count 7.77 K/uL (4.8-10.8) Red Blood Count 4.36 M/uL (4.2-5.4) Hemoglobin 13.2 g/dL (12.0-16.0) Hematocrit 39.5 % (37-47) Mean Corpuscular Volume 90.6 fL (80-100) Mean Corpuscular Hemoglobin 30.3 pg (25-34) Mean Corpuscular Hemoglobin Concent 33.4 g/dl (32-36) Platelet Count 392 K/uL (130-400) Mean Platelet Volume 9.6 fL (7.4-10.4) Neutrophils (%) (Auto) 62.9 % Lymphocytes (%) (Auto) 24.7 % Monocytes (%) (Auto) 10.7 % Eosinophils (%) (Auto) 0.9 % Basophils (%) (Auto) 0.5 % Neutrophils # (Auto) 4.89 K/uL (1.4-6.5) Lymphocytes # (Auto) 1.92 K/uL (1.2-3.4) Monocytes # (Auto) 0.83 K/uL (0.11-0.59) Eosinophils # (Auto) 0.07 K/uL (0-0.5) Basophils # (Auto) 0.04 K/uL (0-0.2) Immature Granulocyte # (Auto) 0.02 K/uL (0.00-0.02) Prothrombin Time 10.0 SECONDS (9.0-12.0) Prothromb Time International Ratio 1.0 (0.9-1.1) Magnesium Level 2.1 mg/dl (1.8-2.4) Lipase 155 U/L (73-393) Urine Color YELLOW Urine Appearance CLEAR (CLEAR) Urine pH 8.0 (4.5-7.5) Urine Specific [place] 1.008 (1.000-1.030) Urine Protein NEG (NEG) Urine Glucose (UA) NEG (NEG) Urine Ketones NEG (NEG) Urine Occult Blood NEG (NEG) Urine Nitrite NEG (NEG) Urine Bilirubin NEG (NEG) Urine Urobilinogen NEG (NEG) Urine Leukocyte Esterase NEG (NEG) Urine WBC (Auto) 1-5 /hpf (0-5) Urine RBC (Auto) 0-4 /hpf (0-4) Urine Hyaline Casts (Auto) 1-5 /lpf (0-5) Urine Epithelial Cells (Auto) 20-30 /lpf (0-5) Urine Bacteria (Auto) NEG (NEG) Laboratory results per my review. Medications Administered Medications (Trade) Dose Ordered Sig/Jonas Route Start Time Stop Time Status Last Admin Dose Admin Sodium Chloride 1,000 ml @ 150 mls/hr Q6H40M STAT IV 08/10/17 10:27 08/10/17 17:09 DC 08/10/17 10:27 150 MLS/HR Ondansetron HCl (Zofran Inj) 4 mg NOW STAT IV 08/10/17 10:27 08/10/17 10:30 DC 08/10/17 11:07 4 MG Morphine Sulfate (MoRPHine SULFATE INJ) 4 mg STK-MED ONCE .ROUTE 08/10/17 11:05 08/10/17 11:06 DC 08/10/17 11:08 4 MG Morphine Sulfate (MoRPHine SULFATE INJ) 4 mg STK-MED ONCE .ROUTE 08/10/17 13:28 08/10/17 13:29 DC 08/10/17 13:32 4 MG Aspirin (Aspirin Chew) 324 mg NOW STAT PO 08/10/17 14:36 08/10/17 14:38 DC 08/10/17 15:01 324 MG Ondansetron HCl (Zofran Inj) 4 mg NOW STAT IV 08/10/17 14:47 08/10/17 14:48 DC 08/10/17 15:01 4 MG Nitroglycerin (Nitrostat Tab) 0.4 mg Q5M PRN SL 08/10/17 15:15 08/10/17 19:51 DC 08/10/17 16:19 0.4 MG Heparin Sodium (Porcine) (Heparin Iv Bolus) 10,000 unit STK-MED ONCE .ROUTE 08/10/17 15:22 08/10/17 15:23 DC 08/10/17 15:30 4,000 UNIT Heparin Sodium/ Dextrose (Heparin 25,000 Unit/500ml D5W) 25,000 unit STK-MED ONCE .ROUTE 08/10/17 15:22 08/10/17 15:23 DC 08/10/17 15:31 25,000 UNIT Polyethylene (Miralax Powder Packet) 17 gm DAILY PRN PO 08/10/17 16:00 09/09/17 15:59 08/12/17 08:52 17 GM ECG Per My Interpretation Indication: other (left arm pain) Rate (beats per minute): 64 Rhythm: normal sinus Findings: T-wave inversion (Inferior), no acute ischemic change, no ectopy, other (possible previous anterior infarct) ED Course 1025: Past medical records reviewed. The patient was evaluated in room C1B. A complete history and physical examination was performed. 1330: Repeat EKG was obtained due to the patient's complaints of left arm pain. EKG per my interpretation shows NSR, rate 70, improved T wave inferiorly, T wave flattening in the lateral leads. T wave are somewhat improved compared to previous. 1439: Upon reevaluation, the patient is resting comfortably. I discussed laboratory and radiographic results with her. She verbalized agreement of the treatment plan. The patient will be evaluated for further management and care. 1442: I discussed the patient's case with Dr. Page, [facility] [place] cardiology. He is in agreement with the plan. 1446: I reviewed the patient's case with Valdemar Narvaez PA-C [facility] hospitalist. He will evaluate the patient for further management. Medical Decision Differential diagnosis: Etiologies such as gastroenteritis, food borne illness, infections, appendicitis , diverticulitis, inflammatory bowel disease, obstruction, GI bleed, biliary pathology, as well as others were entertained. This patient was evaluated and appeared to be in no significant distress. IV access was obtained and laboratory work was drawn. Patient was placed on cardiac rn and found to be in normal sinus rhythm. She was hydrated with normal saline solution given IV Zofran for nausea. Patient did receive IV morphine 2 for the pain in the left arm. EKG from EMS revealed some deep T- wave inversions inferiorly which seemed to be resolved at the time of my initial evaluation. A second EKG was performed when the patient complained of left arm pain again. There was no significant change from previous. CT scan of the head was performed and is read as above, significant for old infarct no acute intracranial abnormality. KUB was performed due to the patient's vomiting. She did refuse an abdominal x-ray series due to position changes. There is no evidence of obstruction. Troponin 2 was ordered and indicates a bump from 0.034 to 1.32. Patient was given aspirin and started on a heparin drip. Cardiology, Dr. Page, was consulted. Patient was discussed with the hospitalist service will evaluate the patient for further management. The patient and her family at the bedside were informed of the findings and agree with the plan for admission. Medication Reconcilliation Current Medication List: was personally reviewed by me Blood Pressure Screening Patient's blood pressure: Elevated blood pressure Referred to hospitalist Consults Time Called: 1440 Consulting Physician: Dr. Page, [facility] cardiology Returned Call: 1442 I discussed the patient's case with him. He is in agreement with the plan. Additional Consults: Time Called: 1440 Consulted Physician: Valdemar Narvaez PA-C [facility] hospitalist Returned Call: 1446 Additional Comments: I reviewed the patient's case with him. He will evaluate the patient for further management. Impression Primary Impression: NSTEMI (non-ST elevated myocardial infarction) Critical Care I have personally spent greater than 35 minutes of critical care time in the direct management of this patient. This includes bedside care, interpretation of diagnostic studies, and testing, discussion with consultants, patient, and family members, and other required patient management activities. This 35 minutes is in excess of all separately billable procedures. Scribe Attestation The scribe's documentation has been prepared under my direction and personally reviewed by me in its entirety. I confirm that the note above accurately reflects all work, treatment, procedures, and medical decision making performed by me. Departure Information Dispostion Being Evaluated By Hospitalist Referrals Madai Leonadr, C.R.N.P. (PCP) Patient Instructions My [facility]
--- NOTE | 2017-08-10 11:33 | DIAGNOSTIC IMAGING REPORT ---
HEAD WITHOUT CONTRAST (CT) CT DOSE: 537.48 mGy.cm HISTORY: Mental status change vertigo, vomiting TECHNIQUE: Multiaxial CT images of the head were performed without the use of intravenous contrast. A dose lowering technique was utilized adhering to the principles of ALARA. Comparison: 03/23/2017. MRI brain 03/15/2017. CT brain 09/17/2016 Findings: Trace amount of fluid within left maxillary sinus. Unchanged polypoid opacification of the sphenoid sinus with a slight expansile component. This is unchanged. Moderate chronic small vessel change of aging. Small old left periventricular infarct. Old pre-existing anterior left occipital infarct. No evidence for acute intracranial hemorrhage. No evidence of midline shift. Impression: 1. Mild age-related atrophy and chronic small vessel change. 2. 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 3. Stable polypoid opacification of the sphenoid sinus which of been described previously. 4. Trace fluid within the left maxillary sinus. The above report was generated using voice recognition software. It may contain grammatical, syntax or spelling errors. Electronically signed by: Kurt Rosas M.D. 08/10/2017 11:31 AM Dictated Date/Time: 08/10/2017 11:25 AM
--- NOTE | 2017-08-10 12:04 | DIAGNOSTIC IMAGING REPORT ---
KUB CLINICAL HISTORY: vomiting COMPARISON STUDY: October 2013 FINDINGS: There is no pathologic bowel dilatation. There is a left lower quadrant ostomy. There are no calcifications suspicious for renal calculi. Pelvic basin calcifications remain similar and likely represent phleboliths. There is a mild lumbar spinal curvature convex to the right. Degenerative changes are present within the lumbar spine IMPRESSION: No evidence of pathologic bowel dilatation. Electronically signed by: Bc Garcia M.D. 08/10/2017 12:03 PM Dictated Date/Time: 08/10/2017 12:02 PM
[2017-08-10] MEDS ORDERED: ASPIRIN 81 MG CHEW PO STA (14:36)
[2017-08-10 14:58] LABS: PTT PATIENT 27.8 SECONDS (21.0-31.0)
[2017-08-10] MEDS ORDERED: NITROGLYCERIN 0.4 MG SL PER TAB CHARGE ONE (15:08)
[2017-08-10] MEDS: NITROGLYCERIN 0.4 MG SL PER TAB CHARGE SL PRN ×4 (15:14→16:19)
[2017-08-10] MEDS ORDERED: HEPARIN SOD (PORCINE) 1000 UNIT/ML 10 ML VIAL ONE ×2 (15:22→16:28)
[2017-08-10] MEDS ORDERED: HEPARIN 25000 UNIT/500 ML D5W ONE (15:22)
[2017-08-10] MEDS ORDERED: MAGNESIUM HYDROXIDE SUSP 30 ML UDC PO PRN (16:00)
[2017-08-10] MEDS ORDERED: ONDANSETRON INJ 2 MG/ML 2 ML VIAL IV PRN (16:00)
[2017-08-10] MEDS ORDERED: HYDROCODONE/ACETAMIN 5/325MG TAB PO PRN (16:00)
[2017-08-10] MEDS ORDERED: ACETAMINOPHEN 325 MG TAB PO PRN ×2 (16:00→18:30)
[2017-08-10] MEDS ORDERED: ALUMINUM/MAGNESIUM/SIMETH (MAALOX MAX) 30 ML UDC PO PRN (16:00)
[2017-08-10] MEDS ORDERED: MIDAZOLAM HCL 1 MG/ML 2ML VIAL ONE ×3 (16:27→17:42)
[2017-08-10] MEDS ORDERED: NITROGLYCERIN/D5W 100MCG/ML 20ML SYR ONE (16:28)
[2017-08-10] MEDS ORDERED: FENTANYL CITRATE INJ 50 MCG/1 ML 2 ML VIAL ONE ×2 (16:28→17:42)
[2017-08-10] MEDS ORDERED: NiCARDipine HCL INJ 2.5 MG/ML 10 ML AMP ONE (16:28)
[2017-08-10] MEDS ORDERED: OPTIRAY 320 IV PRN (16:30)
[2017-08-10] MEDS ORDERED: LORAZEPAM 0.5 MG TAB PO ONE (16:30)
--- NOTE | 2017-08-10 16:35 | Pre Sedation Assessment ---
Pre Sedation Assessment General Date of Sedation: Aug 10, 2017. Vital Signs Past 12 Hours Date Time Temp Pulse Resp B/P (MAP) Pulse Ox O2 Delivery O2 Flow Rate FiO2 08/10/17 16:19 108 16 153/94 93 Room Air 08/10/17 16:06 100 16 143/100 95 Room Air 08/10/17 15:44 88 16 161/98 98 Room Air 08/10/17 15:05 85 16 177/97 97 Room Air 08/10/17 12:26 69 20 156/91 96 Room Air 08/10/17 11:10 73 20 166/100 96 Room Air 08/10/17 10:56 77 08/10/17 10:47 73 20 166/93 95 86 175/107 82 175/123 08/10/17 10:33 36.8 70 18 148/92 93 Room Air Review Cardiovascular: regular rate, rhythm Lungs: lungs clear Pre-Sedation Airway Assessment Smoking Status: Never Smoker Mallampati Classification: Class IV NPO Status Date of Last Intake of Fluids: Aug 10, 2017 Time of Last Intake of Fluids: 07:30 Date of Last Intake of Solids: Aug 10, 2017 Time of Last Intake of Solids: 07:30 Procedure Planning Contraindications for Sedation: None Current Medications Reviewed: Yes Notes The planned sedation has been discussed with the patient. Informed Consent was obtained. I have identified the patient, determined the appropriateness of sedation and have assessed the patient immediately prior to the procedure. All medicine(s) and interventions are by my order.
--- NOTE | 2017-08-10 16:40 | Cardiology Consultation ---
Cardiology Consultation Date of Consultation: Aug 10, 2017. Requesting Physician: Dr. Guillen Attending Physician: Sarahi Washington Reason for Consultation: IA Pt evaluation today including: conversation w/ patient, conversation w/ family , physical exam, chart review, lab review, review of studies, review of inpatient medication list, conversation w/ attending (Dr. Guillen and Sarahi Washington PA-C) History of Present Illness Mrs. Grace is a pleasant 82 year old female with a history of stroke, dyslipidemia, hypertension, and stroke. She also has a colostomy due to diverticulitis. She has a history of breast cancer status post XRT in approximately 2006. Yesterday she felt very tired throughout the entire day, not feeling herself. Then this morning when she woke up at approximately 7:00 a.m., she went to the restroom and felt very weak as if she was unable to walk back to her bed. She noticed that she had left arm pain that radiated into her left upper chest. This pain lasted for several minutes before improving but did not resolve completely. Her pain has waxed and waned throughout the entire day. She also noted dizziness and lightheadedness. She felt near syncopal but did not actually lose consciousness. She has experience nausea. Because her symptoms continue to occur she came to the emergency department via ambulance. In the ambulance she had an ECG which demonstrated sinus rhythm at [address] elevation in leads [address] depression and deep T-wave inversion in leads III and AVF. Her ECGs here had resolution of ST elevation and otherwise nonspecific T-wave abnormalities. While in the emergency department she had acute worsening of her left arm pain. She cannot further characterize the pain. She was given nitroglycerin x1 with significant improvement in her pain. She had some improvement with morphine but her pain continued to occur. During our interview , she was given an additional 3 nitroglycerin tablets but her pain continued to occur. She denies any shortness of breath. She denies any focal weakness. She did have a stroke in January of 2017 with right leg weakness which continues to occur without acute worsening. She uses a cane and walker for ambulation. She is rather sedentary ever since her stroke. She has not had this type of chest discomfort or left arm pain. She reports having some blood in her colostomy a few days ago but she has not told another physician. She denies ever requiring a blood transfusion. She maintains Plavix therapy ever since her stroke. Her last meal was a few bites for breakfast this morning at approximately 7:30 a.m.. Review of systems: As above and otherwise review of systems were negative/ unremarkable. Past Medical/Surgical History 1. Breast cancer status post lumpectomy and XRT in approximately 2006. 2. Hypertension 3. Stroke 4. Colostomy 5. Diverticulitis 6. Pancreatitis 7. Splenectomy 8. Hernia 9. Hereditary spherocytosis 10. Dyslipidemia Family History Hypertension Four siblings have from myocardial infarction. Social History Smoking Status: Never Smoker History of Alcohol Use: No She denies tobacco, alcohol, or drug abuse. She is and lives at home with her . She has 2 living daughters, 1 son, and also lost a daughter as an infant. While in the emergency department, her , daughter, [id number], and sister were at the bedside. Allergies Coded Allergies: Vancomycin (Verified Allergy, Intermediate, rash, 08/10/17) Diphenhydramine (Verified Allergy, Mild, Redness, 08/10/17) Amoxicillin (Verified Allergy, Unknown, bad reaction/glands swollen puffed up, 08/10/17) Clavulanic Acid (Verified Allergy, Unknown, 08/10/17) Codeine (Verified Allergy, Unknown, 08/10/17) Medications Reported Home Medications Medications Dose Route/Sig Max Daily Dose Days Date Category Dose Instructions Amoxil (Amoxicillin) 500 Mg Cap 500 Mg PO BID 7 08/10/17 Reported Clopidogrel (Clopidogrel Bisulfate) 75 Mg Tab 75 Mg PO DAILY 08/10/17 Reported Oxybutynin Chloride Er (Oxybutynin Chloride) 5 Mg Tab 5 Mg PO DAILY 08/10/17 Reported [place] 5MG/325MG (Acetaminophen/Hydrocodone Bitart) Tab 0.5 Tablet PO HS PRN 08/22/16 Reported PRN PAIN Miralax (Polyethylene Glycol 3350) 1 Pow Pow 17 Gm PO DAILY PRN 09/19/14 Reported Cozaar (Losartan Potassium) 50 Mg Tab 50 Mg PO DAILY 09/19/14 Reported Probiotic (Probiotic Product) 1 Cap Cap 1 Cap PO QPM 08/23/13 Reported Vitamin D 1000 Unit (Cholecalciferol) 1,000 Unit Cap 2,000 Inter.unit PO QPM 06/22/13 Reported Vitamin C (Ascorbic Acid) 500 Mg Tab 500 Mg PO DAILY 06/22/13 Reported Zetia (Ezetimibe) 10 Mg Tab 10 Mg PO QPM 12/09/12 Reported Zyrtec (Cetirizine HCl) 10 Mg Tab 5 Mg PO QPM 09/02/12 Reported Calcium 600 Mg Tab 600 Mg PO Q2D 09/02/12 Reported Multivitamin (Multivitamins) Tab 1 Tab PO DAILY 06/08/10 Reported Current Inpatient Medications Medications (Trade) Dose Ordered Sig/Jonas Route Start Time Stop Time Status Last Admin Dose Admin Sodium Chloride 1,000 ml @ 150 mls/hr Q6H40M STAT IV 08/10/17 10:27 08/10/17 17:06 08/10/17 10:27 150 MLS/HR Nitroglycerin (Nitrostat Tab) 0.4 mg Q5M PRN SL 08/10/17 15:15 09/09/17 15:14 08/10/17 16:19 0.4 MG Acetaminophen (Tylenol Tab) 650 mg Q4H PRN PO 08/10/17 16:00 09/09/17 15:59 UNV Al Hydrox/Mg Hydrox/Simethicone (Maalox Max Susp) 15 ml Q4H PRN PO 08/10/17 16:00 09/09/17 15:59 UNV Magnesium Hydroxide (Milk Of Magnesia Susp) 30 ml Q12H PRN PO 08/10/17 16:00 09/09/17 15:59 UNV Ondansetron HCl (Zofran Inj) 4 mg Q6H PRN IV 08/10/17 16:00 09/09/17 15:59 UNV Nitroglycerin (Nitroglycerin 2% Oint) 1 inch Q6H EXT 08/10/17 16:00 09/09/17 15:59 UNV Aspirin (Ecotrin Tab) 81 mg QAM PO 08/11/17 09:00 09/10/17 08:59 UNV Polyethylene (Miralax Powder Packet) 17 gm DAILY PRN PO 08/10/17 16:00 09/09/17 15:59 UNV Tramadol HCl (Ultram Tab) 50 mg Q4H PRN PO 08/10/17 16:00 09/09/17 15:59 UNV Amoxicillin (Amoxil Cap) 500 mg BID PO 08/10/17 21:00 08/13/17 21:00 UNV Ascorbic Acid (Vitamin C Tab) 500 mg DAILY PO 08/11/17 09:00 09/10/17 08:59 UNV Cetirizine HCl (zyrTEC TAB) 5 mg QPM PO 08/10/17 21:00 09/09/17 20:59 UNV Cholecalciferol (Vitamin D Tab) 2,000 inter.unit QPM PO 08/10/17 21:00 09/09/17 20:59 UNV Clopidogrel Bisulfate (plAVix TAB) 75 mg DAILY PO 08/11/17 09:00 09/10/17 08:59 UNV EZETIMIBE (Zetia Tab) 10 mg QPM PO 08/10/17 21:00 09/09/17 20:59 UNV Acetaminophen/ Hydrocodone Bitart ([place] 5/325 Tab) 1 tab HS PRN PO 08/10/17 16:00 08/24/17 15:59 UNV Losartan Potassium (coZAAR TAB) 50 mg DAILY PO 08/11/17 09:00 09/10/17 08:59 UNV Multivitamins (Multivitamin Tab) 1 tab DAILY PO 08/11/17 09:00 09/10/17 08:59 UNV Oxybutynin Chloride (Ditropan-Xl Tab) 5 mg DAILY PO 08/11/17 09:00 09/10/17 08:59 UNV Ioversol (Optiray 320) 111 ml UD PRN IV 08/10/17 16:30 08/14/17 16:29 UNV Physical Exam Vital Signs Past 12 Hours Date Time Temp Pulse Resp B/P (MAP) Pulse Ox O2 Delivery O2 Flow Rate FiO2 08/10/17 16:19 108 16 153/94 93 Room Air 08/10/17 16:06 100 16 143/100 95 Room Air 08/10/17 15:44 88 16 161/98 98 Room Air 08/10/17 15:05 85 16 177/97 97 Room Air 08/10/17 12:26 69 20 156/91 96 Room Air 08/10/17 11:10 73 20 166/100 96 Room Air 08/10/17 10:56 77 08/10/17 10:47 73 20 166/93 95 86 175/107 82 175/123 08/10/17 10:33 36.8 70 18 148/92 93 Room Air Gen.: No acute distress. Alert and oriented. HEENT: Anicteric sclera. Neck: No JVD. No bruits. Normal carotid upstrokes bilaterally. Cardiac: PMI was nondisplaced. No ventricular heave. Regular rate and rhythm. Normal S1-S2. No murmurs, rubs, or gallops. Pulmonary: Clear to auscultation bilaterally without wheezes, rales, or rhonchi. Abdomen: Soft, nontender, nondistended, with normoactive bowel sounds. No bruits noted. Extremities: 2+ radial pulses bilaterally; Allens's ok. 2+ femoral pulses bilaterally; no bruit. 2+ posterior tibialis pulses bilaterally. No edema or cyanosis. No palpable cords. Psychiatric: Affect appears appropriate. Chest: Nontender to palpation. Data Laboratory Results: Last 24 Hours Test 08/10/17 10:45 08/10/17 12:18 08/10/17 13:32 White Blood Count 7.77 K/uL Red Blood Count 4.36 M/uL Hemoglobin 13.2 g/dL Hematocrit 39.5 % Mean Corpuscular Volume 90.6 fL Mean Corpuscular Hemoglobin 30.3 pg Mean Corpuscular Hemoglobin Concent 33.4 g/dl Platelet Count 392 K/uL Mean Platelet Volume 9.6 fL Neutrophils (%) (Auto) 62.9 % Lymphocytes (%) (Auto) 24.7 % Monocytes (%) (Auto) 10.7 % Eosinophils (%) (Auto) 0.9 % Basophils (%) (Auto) 0.5 % Neutrophils # (Auto) 4.89 K/uL Lymphocytes # (Auto) 1.92 K/uL Monocytes # (Auto) 0.83 K/uL Eosinophils # (Auto) 0.07 K/uL Basophils # (Auto) 0.04 K/uL RDW Standard Deviation 44.9 fL RDW Coefficient of Variation 13.4 % Immature Granulocyte % (Auto) 0.3 % Immature Granulocyte # (Auto) 0.02 K/uL Prothrombin Time 10.0 SECONDS Prothromb Time International Ratio 1.0 Activated Partial Thromboplast Time 27.8 SECONDS Partial Thromboplastin Ratio 1.1 Sodium Level 136 mmol/L Potassium Level 4.1 mmol/L Chloride Level 101 mmol/L Carbon Dioxide Level 29 mmol/L Anion Gap 6.0 mmol/L Blood Urea Nitrogen 18 mg/dl Creatinine 0.95 mg/dl Est Creatinine Clear Calc Drug Dose 45.9 ml/min Estimated GFR () 65.6 Estimated GFR (Non- 56.6 BUN/Creatinine Ratio 18.7 Random Glucose 119 mg/dl Calcium Level 8.4 mg/dl Magnesium Level 2.1 mg/dl Total Bilirubin 0.4 mg/dl Direct Bilirubin < 0.1 mg/dl Aspartate Amino Transf (AST/SGOT) 31 U/L Alanine Aminotransferase (ALT/SGPT) 27 U/L Alkaline Phosphatase 94 U/L Troponin I 0.034 ng/ml 1.370 ng/ml Total Protein 7.0 gm/dl Albumin 3.0 gm/dl Lipase 155 U/L Urine Color YELLOW Urine Appearance CLEAR Urine pH 8.0 Urine Specific [place] 1.008 Urine Protein NEG Urine Glucose (UA) NEG Urine Ketones NEG Urine Occult Blood NEG Urine Nitrite NEG Urine Bilirubin NEG Urine Urobilinogen NEG Urine Leukocyte Esterase NEG Urine WBC (Auto) 1-5 /hpf Urine RBC (Auto) 0-4 /hpf Urine Hyaline Casts (Auto) 1-5 /lpf Urine Epithelial Cells (Auto) 20-30 /lpf Urine Bacteria (Auto) NEG ECGs were personally reviewed as noted above in the HPI. ECG with EMS demonstrated dynamic ST/T-wave changes. Head CT 08/10/2017: Several old left cerebral infarcts. Telemetry reviewed: Sinus rhythm. Assessment & Plan ASSESSMENT/PLAN: 1. NSTEMI: She had dynamic ST changes on ECG, elevated troponins, and ongoing symptoms concerning for angina. For this reason urgent coronary angiography was recommended. Risks and benefits were discussed with her and family members in detail. They were made aware that CT surgery is not available at this facility. She was agreeable to undergo diagnostic coronary angiography and PCI , if deemed appropriate, at this facility. 2. Hypertension: Blood pressure was elevated while in the emergency department. Blood pressure improved with sublingual nitroglycerin. Recommend initiation of beta-aiden. Continue ARB. 3. Dyslipidemia: Recommend high-intensity statin therapy in place of Zetia. She remembers being on 1 statin therapy in the past and recalls issues with her liver. Monitor transaminase levels. 4. Disposition: Urgent coronary angiography as noted above. Plan of care was discussed with Ms. Sarahi Washington, admitting clinician. Highly complex medical issues. Thank you for allowing me to participate in the care of your patient. Please call for any other questions or concerns. Sincerely, Tony Page M.D. Addendum: Coronary angiography demonstrated severe multivessel CAD. Dr. Johnson performed PCI of mid LAD.
--- NOTE | 2017-08-10 16:59 | History and Physical ---
History & Physical Date & Time of Service: Aug 10, 2017 at 16:16 Chief Complaint: Nausea/Flank Pain/Near Syncope Primary Care Physician: Madai Leonard C.R.[email or web address] History of Present Illness Source: patient, family, spouse, clinic records, hospital records This is an 82 y/o female with a history of HTN, HLD, CVA about 5 months ago, CKD stage III, neuropathy, h/o breast cancer, partial colectomy, and GERD who presented to the ED on 08/10 with chest pain and left arm pain. The patient is a poor historian, difficult to get concrete ROS. She states she felt generally unwell starting yesterday. Today, she developed left arm pain as well as pain across her chest. She now also complains of pain going down her entire left leg. Her pain has been at its worst a 10/10 pain, but is now down to 8/10. The patient states her left side feels tingling, as if it's asleep. 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 The patient also complains of dizziness/ lightheadedness but denies vertigo, falls, or loss of consciousness. She reports nausea and states she has been dry heaving but denies actual emesis. She complains of epigastric pain but states this is also improving. She feels generally weak all over and fatigued. The patient also notes that her urinary incontinence has been worse than usual today and she has not had any control. The patient denies fevers, chills, sweats, palpitations, claudication, cough, wheezing, shortness of breath, vomiting, dysuria, hematuria, urinary retention, paralysis. Past Medical/Surgical History Medical Problems: (1) Abdominal pain (2) Abdominal pain (3) Abdominal pain (4) Abnormal EKG (5) Abnormal EKG (6) Bilateral arm pain (7) Breast cancer (8) Chest pain (9) Chest pain (10) Constipation (11) Dehydration (12) Diarrhea (13) Diarrhea (14) Diarrhea (15) Diverticulitis (16) Diverticulitis (17) epidural abscess (18) Gastroenteritis (19) GI bleed (20) GI bleeding (21) Headache (22) HEREDITARY SPHEROCYTOSIS (23) Hernia (24) History of gallbladder surgery (25) History of open sigmoidectomy (26) Hypertension (27) Hypertensive crisis (28) Leukocytosis (29) LLQ abdominal pain (30) Low back pain (31) Nausea & vomiting (32) Obstipation (33) Obstipation (34) Pancreatitis (35) Perforated bowel (36) Rectal discharge (37) Replacement of total knee joint (38) Right TKR 07/2010 (39) rt lower extremity edema (40) Sinusitis (41) Upper abdominal pain (42) Ventral hernia Surgical Problems: (1) Colostomy in place (2) History of section (3) History of lumpectomy (4) History of splenectomy HTN HLD CVA 5 months ago--MRI showed subacute to old hemorrhagic infarct but diffusion images suggested small superimposed acute nonhemorrhagic extension CKD stage III Neuropathy H/o breast cancer s/p lumpectomy and radiation H/o diverticulitis s/p partial colectomy Family History Cancer (breast, colon) Diabetes mellitus Hypertension Social History Smoking Status: Never Smoker Smokeless Tobacco Use: No Alcohol Use: none Drug Use: none Marital Status: Housing status: lives with significant other Occupational Status: retired Immunizations History of Influenza Vaccine: N/A History of Tetanus Vaccine?: Unknown History of Pneumococcal: Yes History of Hepatitis B Vaccine: Unknown Allergies Coded Allergies: Vancomycin (Verified Allergy, Intermediate, rash, 08/10/17) Diphenhydramine (Verified Allergy, Mild, Redness, 08/10/17) Amoxicillin (Verified Allergy, Unknown, bad reaction/glands swollen puffed up, 08/10/17) Clavulanic Acid (Verified Allergy, Unknown, 08/10/17) Codeine (Verified Allergy, Unknown, 08/10/17) Home Medications Scheduled Amoxicillin (Amoxil), 500 MG PO BID Ascorbic Acid (Vitamin C), 500 MG PO DAILY Calcium (Calcium), 600 MG PO Q2D Cetirizine (Zyrtec), 5 MG PO QPM Cholecalciferol (Vitamin D 1000 Unit), 2,000 INTER.UNIT PO QPM Clopidogrel Bisulfate (Clopidogrel), 75 MG PO DAILY Ezetimibe (Zetia), 10 MG PO QPM Losartan Potassium (Cozaar), 50 MG PO DAILY Multivitamin (Multivitamin), 1 TAB PO DAILY Oxybutynin Chloride (Oxybutynin Chloride Er), 5 MG PO DAILY Probiotic Product (Probiotic), 1 CAP PO QPM Scheduled PRN Hydrocodone/Acetaminophen 5MG/325MG ([place] 5MG/325MG), 0.5 TABLET PO HS PRN for Pain Polyethylene Glycol 3350 (Miralax), 17 GM PO DAILY PRN for Constipation Review of Systems Constitutional: +Malaise, weakness, fatigue. No fever, No chills, No sweats Eyes: No worsening of vision, No eye pain, No diplopia ENT: No hearing loss, No nasal symptoms, No trouble swallowing Respiratory: No cough, No wheezing, No shortness of breath Cardiovascular: +Chest pain. No claudication, No palpitations Abdomen: +Abdominal pain, nausea. No vomiting Musculoskeletal: +Left leg pain. No joint pain, No swelling Genitourinary - Female: +Incontinence. No dysuria, No urinary retention, No hematuria Neurologic: +Left side tingling, possibly weak. No paralysis Integumentary: No rash, No itch, No color change Physical Exam Vital Signs Date Time Temp Pulse Resp B/P (MAP) Pulse Ox O2 Delivery O2 Flow Rate FiO2 08/10/17 16:06 100 16 143/100 95 Room Air 08/10/17 15:44 88 16 161/98 98 Room Air 08/10/17 15:05 85 16 177/97 97 Room Air 08/10/17 12:26 69 20 156/91 96 Room Air 08/10/17 11:10 73 20 166/100 96 Room Air 08/10/17 10:56 77 08/10/17 10:47 73 20 166/93 95 86 175/107 82 175/123 08/10/17 10:33 36.8 70 18 148/92 93 Room Air General appearance: +Obese. Well-developed, well-nourished, no apparent distress Head: Normocephalic, atraumatic Eyes: Normal inspection, PERRL, EOMI ENT: Normal ENT inspection, hearing grossly normal, pharynx normal Neck: Supple, no JVD, trachea midline Respiratory/Chest: Lungs clear to auscultation, normal breath sounds, no respiratory distress Cardiovascular: Regular rate & rhythm, no gallop, no murmur Abdomen/GI: +Epigastric area TTP. Colostomy LLQ. Normal bowel sounds, soft Extremities/Musculoskeletal: Normal inspection, no calf tenderness, no pedal edema Neurological/Psych: +No appreciable left sided weakness. Right leg strength 4/ 5, this is residual from previous CVA. No facial droop, slurred speech, pronator drift. Alert, normal mood/affect, oriented x 3 Skin: Normal color, warm/dry, no rash Diagnostics Laboratory Results Results Past 24 Hours Test 08/10/17 10:45 08/10/17 12:18 08/10/17 13:32 Range/Units White Blood Count 7.77 4.8-10.8 K/uL Red Blood Count 4.36 4.2-5.4 M/uL Hemoglobin 13.2 12.0-16.0 g/dL Hematocrit 39.5 37-47 % Mean Corpuscular Volume 90.6 80-100 fL Mean Corpuscular Hemoglobin 30.3 25-34 pg Mean Corpuscular Hemoglobin Concent 33.4 32-36 g/dl Platelet Count 392 130-400 K/uL Mean Platelet Volume 9.6 7.4-10.4 fL Neutrophils (%) (Auto) 62.9 % Lymphocytes (%) (Auto) 24.7 % Monocytes (%) (Auto) 10.7 % Eosinophils (%) (Auto) 0.9 % Basophils (%) (Auto) 0.5 % Neutrophils # (Auto) 4.89 1.4-6.5 K/uL Lymphocytes # (Auto) 1.92 1.2-3.4 K/uL Monocytes # (Auto) 0.83 0.11-0.59 K/uL Eosinophils # (Auto) 0.07 0-0.5 K/uL Basophils # (Auto) 0.04 0-0.2 K/uL RDW Standard Deviation 44.9 36.4-46.3 fL RDW Coefficient of Variation 13.4 11.5-14.5 % Immature Granulocyte % (Auto) 0.3 % Immature Granulocyte # (Auto) 0.02 0.00-0.02 K/uL Prothrombin Time 10.0 9.0-12.0 SECONDS Prothromb Time International Ratio 1.0 0.9-1.1 Activated Partial Thromboplast Time 27.8 21.0-31.0 SECONDS Partial Thromboplastin Ratio 1.1 Sodium Level 136 136-145 mmol/L Potassium Level 4.1 3.5-5.1 mmol/L Chloride Level 101 98-107 mmol/L Carbon Dioxide Level 29 21-32 mmol/L Anion Gap 6.0 3-11 mmol/L Blood Urea Nitrogen 18 7-18 mg/dl Creatinine 0.95 0.60-1.20 mg/dl Est Creatinine Clear Calc Drug Dose 45.9 ml/min Estimated GFR () 65.6 Estimated GFR (Non- 56.6 BUN/Creatinine Ratio 18.7 10-20 Random Glucose 119 70-99 mg/dl Calcium Level 8.4 8.5-10.1 mg/dl Magnesium Level 2.1 1.8-2.4 mg/dl Total Bilirubin 0.4 0.2-1 mg/dl Direct Bilirubin < 0.1 0-0.2 mg/dl Aspartate Amino Transf (AST/SGOT) 31 15-37 U/L Alanine Aminotransferase (ALT/SGPT) 27 12-78 U/L Alkaline Phosphatase 94 45-117 U/L Troponin I 0.034 1.370 0-0.045 ng/ml Total Protein 7.0 6.4-8.2 gm/dl Albumin 3.0 3.4-5.0 gm/dl Lipase 155 73-393 U/L Urine Color YELLOW Urine Appearance CLEAR CLEAR Urine pH 8.0 4.5-7.5 Urine Specific [place] 1.008 1.000-1.030 Urine Protein NEG NEG Urine Glucose (UA) NEG NEG Urine Ketones NEG NEG Urine Occult Blood NEG NEG Urine Nitrite NEG NEG Urine Bilirubin NEG NEG Urine Urobilinogen NEG NEG Urine Leukocyte Esterase NEG NEG Urine WBC (Auto) 1-5 0-5 /hpf Urine RBC (Auto) 0-4 0-4 /hpf Urine Hyaline Casts (Auto) 1-5 0-5 /lpf Urine Epithelial Cells (Auto) 20-30 0-5 /lpf Urine Bacteria (Auto) NEG NEG Diagnostic Radiology Reviewed the following studies and agree with interpretation as follows: HEAD WITHOUT CONTRAST (CT) CT DOSE: 537.48 mGy.cm HISTORY: Mental status change vertigo, vomiting TECHNIQUE: Multiaxial CT images of the head were performed without the use of intravenous contrast. A dose lowering technique was utilized adhering to the principles of ALARA. Comparison: 03/23/2017. MRI brain 03/15/2017. CT brain 09/17/2016 Findings: Trace amount of fluid within left maxillary sinus. Unchanged polypoid opacification of the sphenoid sinus with a slight expansile component. This is unchanged. Moderate chronic small vessel change of aging. Small old left periventricular infarct. Old pre-existing anterior left occipital infarct. No evidence for acute intracranial hemorrhage. No evidence of midline shift. Impression: 1. Mild age-related atrophy and chronic small vessel change. 2. 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 3. Stable polypoid opacification of the sphenoid sinus which of been described previously. 4. Trace fluid within the left maxillary sinus. KUB CLINICAL HISTORY: vomiting COMPARISON STUDY: October 2013 FINDINGS: There is no pathologic bowel dilatation. There is a left lower quadrant ostomy. There are no calcifications suspicious for renal calculi. Pelvic basin calcifications remain similar and likely represent phleboliths. There is a mild lumbar spinal curvature convex to the right. Degenerative changes are present within the lumbar spine IMPRESSION: No evidence of pathologic bowel dilatation. EKG Reviewed EKG and agree with interpretation as follows: 64 bpm, NSR 70 bpm, NSR 84 bpm, NSR Impression Assessment and Plan 82 y/o female with a history of HTN, HLD, CVA about 5 months ago, CKD stage III , neuropathy, h/o breast cancer, partial colectomy, and GERD who presented to the ED on 08/10 with chest pain and left arm pain. Pt afebrile, VSS. Head CT negative for acute disease. KUB negative. EKGs in ED without acute ischemic changes. Troponin was initially 0.034, but patient then complained of chest pain, ongoing left arm pain. Repeat troponin 1.37. Chest pain -Admit to telemetry -Cardiology consulted, appreciate recs: Spoke to Dr. Page. EKGs reviewed from EMS which show ST elevations. 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 Will hold off on further evaluation of this given emergent need for cardiac cath. Does not appear to be having acute CVA -Continue ASA, Plavix, losartan 50 mg PO qd, Zetia 10 mg PO qd -Lipitor as above CKD stage III--stable Urinary incontinence--reportedly worse today -UA negative -Continue oxybutynin 5 mg PO qd H/o breast cancer s/p lumpectomy and radiation--noted H/o diverticulitis s/p partial colectomy--noted DVT prophylaxis -Heparin drip -RANDA baker and JUDITHs Code Status -Level I, FULL RESUSCITATION STATUS -No prolonged measures Resuscitation Status VTE Prophylaxis Will order VTE Prophylaxis: Yes
--- NOTE | 2017-08-10 18:13 | Cardiac Catheterization ---
Procedure Note Procedure Date Aug 10, 2017. Pre-Procedure Diagnosis Non STEMI, Acute Coronary Syndrome AUC Score 9 Post-Procedure Diagnosis Severe CAD, Normal Intracardiac Pressures Procedure(s) Performed Coronary Angiography, Left Heart Cath [employer] Dr. Page Water Control Supervisor(s) Contino Estimated Blood Loss < 30 ml Medication(s) Fentanyl, Nicardipine, Versed, Lidocaine 1% Summary of Findings Coronary angiography: 1. Left main coronary artery: The LMCA is without significant CAD. Calcifications noted. 2. Left anterior descending: The LAD is a large caliber vessel that wraps around the apex. Proximal LAD 30%. Early mid LAD 40-50%. Mid LAD 90-95% stenosis with JA 2 flow distally. Distal LAD long stenotic area of approximately 40-50%. Small caliber D1 ostial 80-90%. Small caliber D2. Large septal tuber helper 2 with proximal 80% stenosis. 3. Circumflex: The circumflex is a large caliber vessel. Dominant circumflex. Mid circumflex 90% stenosis JA 3 flow. Very small OM1. Medium caliber OM2 with ostial 80-90%. Large OM3 without significant CAD. Large PL 1 without significant CAD. Large PL2 with proximal 90% stenosis. Circumflex PDA without significant CAD. 4. Right coronary artery: The RCA is small to medium in caliber and non dominant. Mid RCA 70% followed by 80-90%. JA 3 flow. Left heart catheterization: 1. Left ventriculography was not performed. 2. No aortic stenosis. 3. Normal LVEDP; 4mmHg. Sedation start time: 4:55 p.m. Sedation end time: 5:38 p.m. Procedural notes: 1. Procedure was performed via the right radial artery without known complication. 2. JL 4 6 Albanian diagnostic catheter was used for selective coronary angiography of the LMCA. JR4 and AR2 were attempted to visualize the RCA. 3DRC was used for sub selective angiography of the RCA. Impression: 1. Severe multivessel CAD. 2. Dominant circumflex. 3. No aortic stenosis. 4. Normal LVEDP. Plan: 1. Dr. Johnson of interventional Cardiology has reviewed the images and due to the fact that the patient continues to experience left arm pain, plans on PCI. Hemodynamics Rest Ao: 138/72 Final Ao: 146/77 LV: 129/0/4 Recommendations PCI without planned CABG Specimens None Radiation Exposure (mGy) 1507 mGy. Fluoro time 12 min. Contrast (mls) Estimated contrast < 100 ml (contrast leaked from the connection tubing) Procedural Complication(s) None Disposition Plant Inspector Holding/Recovery (remained in feed mill lab technician for PCI) ACC Data Cardiac Status Clinical evaluation leading to the procedure CAD Presntation: Non STEMI Anginal Classification: CCS IV Heart Failure: No Cardiogenic Shock w/in 24Hrs: No Cardiac Arrest w/in 24Hrs: No Imaging studies past 6 months: No Stress studies past 6 months: No Standard Exercise Stress Test: No Stress Echocardiogram: No Stress Testing w/SPECT MPI: No Cardiac CTA: No Coronary Anatomy Dominant: Left Left Main (% Stenosis): Normal LAD (% Stenosis): Proximal (30%), Mid (early mid 40-50% followed by 90-95% mid LAD with JA 2 flow. ), Distal (40-50%) D1 (% Stenosis): Ostial (80-90%) D2 (% Stenosis): Normal D3 (% Stenosis): Normal Circumflex (% Stenosis): Mid (90%) OM1 (% Stenosis): Normal OM2 (% Stenosis): Ostial (80-90%) OM3 (% Stenosis): Normal L PL1 (% Stenosis): Normal L PL2 (% Stenosis): Proximal (90%) L PDA (% Stenosis): Normal RCA (% Stenosis): Mid (70% followed by 80-90%) Left Ventricular Angiography EF (%): n/a Diagnostic Physician's Name: Nithin Page MD Status: Urgent Closure Device Percutaneous Entry Location: Radial Closure Device: Radial Band Recommendations: PCI without planned CABG
--- NOTE | 2017-08-10 18:26 | Post Sedation Assessment ---
Post Sedation Assessment General Date of Sedation Aug 10, 2017. Vital Signs: Vital Signs Past 12 Hours Date Time Temp Pulse Resp B/P (MAP) Pulse Ox O2 Delivery O2 Flow Rate FiO2 08/10/17 16:19 108 16 153/94 93 Room Air 08/10/17 16:06 100 16 143/100 95 Room Air 08/10/17 15:44 88 16 161/98 98 Room Air 08/10/17 15:05 85 16 177/97 97 Room Air 08/10/17 12:26 69 20 156/91 96 Room Air 08/10/17 11:10 73 20 166/100 96 Room Air 08/10/17 10:56 77 08/10/17 10:47 73 20 166/93 95 86 175/107 82 175/123 08/10/17 10:33 36.8 70 18 148/92 93 Room Air Post Procedure Recovery Score Activity: (2) Moves 4 extremities * Respiration: (2) Deep breath/cough Circulation: (2) +/-20% PreAnes Value Consciousness: (2) Fully Awake Oxygen Saturation: (2) > 92% On Room Air Post Anesthesia Score: 10 Discharge Sedation Level of Care: Fast Track Phase II Post Sedation Plan On clinical assessment, the patient appears to have tolerated the sedation without complications. Patient is recovering as anticipated. Patient will continue to be monitored by nursing and may be discharged when sedation discharge criteria are met per below protocol. Upon Completions of procedure and additional 15 minutes continue every 5 minute vital signs and the P.A.R. score; then discharge to a Phase I or Fast Track to Phase II per the following guidelines: * Discharge Patient to appropriate Phase II area if PAR is 8 or greater or return to pre- procedure baseline. The post - procedure orders will be as directed. * If PAR score is less than 8 or not return to pre-procedure baseline then patient will follow Phase I monitoring till PAR is reached for Phase II. The Phase I may be done in procedure room or may call to secure a Phase I area. * If naloxone or flumazenil are used for reversal, hold in Phase I for an additional 60 -120 minutes before discharge to Phase II. Please call the Sedation Physician to re-evaluate and complete post-note for discharge to Phase II area. Do NOT discharge from procedure sedation or Phase 1 until post- sedation evaluation note is complete by procedure /sedation MD Sedation Discharge Instructions to be given to the patient at discharge to home.
--- NOTE | 2017-08-10 18:27 | [facility] Post Operative Brief Note ---
Preliminary Procedure Note Procedure Date Aug 10, 2017. Pre-Procedure Diagnosis Non STEMI AUC Score 9 Post-Procedure Diagnosis Severe CAD, Normal Intracardiac Pressures Procedure(s) Performed Drug Eluting Stent Price Economist Alex Carbon Furnace Operator Helper(s) Contino Estimated Blood Loss < 30 ml Medication(s) Clopidogrel, Fentanyl, Nicardipine, Nitroglycerin, Versed, Lidocaine 1% Preliminary Findings Impression: 1. Severe multivessel CAD. 2. Successful PCI of mid LAD with single JOHN (2.5 x 22 Thaddeus). Possible staged PCI of circumflex tomorrow. Recommendations PCI without planned CABG Specimens None Procedural Complication(s) None Disposition PCU
[2017-08-10] MEDS ORDERED: CLOPIDOGREL BISULFATE 300 MG TAB PO ONE (18:29)
[2017-08-10] MEDS ORDERED: SODIUM CHLORIDE 0.9% 1000ML 1,000 ML IV SCH (18:30)
[2017-08-10] MEDS: HEPARIN 25,000 UNIT/500ML D5W 500 ML IV SCH (20:26)
[2017-08-10] MEDS: CHOLECALCIFEROL 1000 INTER.UNIT TAB PO SCH (20:49)
[2017-08-10] MEDS: CETIRIZINE HCL 10 MG TAB PO SCH (20:49)
[2017-08-10] MEDS ORDERED: EZETIMIBE 10MG TAB PO SCH (21:00)
[2017-08-10] MEDS: AMOXICILLIN 500 MG CAP PO SCH (21:18)
[2017-08-10] MEDS: METOPROLOL TARTRATE 25 MG TAB PO SCH (21:19)
[2017-08-10 22:10] LABS: CKMB 58.7 ng/ml (0.5-3.6)
[2017-08-10] MEDS: NITROGLYCERIN 2% OINTMENT 30GM TUBE EXT SCH (22:29)
[2017-08-11] VITALS (15 sets, daily range): BP systolic 110–145; BP diastolic 55–83; PULSE 64–89; TEMP 36.5–37.2; O2SAT 92–96
[2017-08-11 02:57] LABS: PTT PATIENT 78.4 SECONDS (21.0-31.0)
[2017-08-11] MEDS: HEPARIN 25,000 UNIT/500ML D5W 500 ML IV SCH (03:34)
[2017-08-11] MEDS: NITROGLYCERIN 2% OINTMENT 30GM TUBE EXT SCH ×4 (04:17→22:08)
[2017-08-11 06:06] LABS: HEMATOCRIT 35.4 % (37-47); MEAN CELL VOLUME 90.3 fL (80-100); MEAN CORPUSCULAR HEMOGLOBIN 30.6 pg (25-34); MEAN CORPUSCULAR HGB CONC 33.9 g/dl (32-36); MEAN PLATELET VOLUME 9.7 fL (7.4-10.4); PLATELET COUNT 361 K/uL (130-400); RED CELL DISTRIBUTION WIDTH CV 13.8 % (11.5-14.5); RED CELL DISTRIBUTION WIDTH SD 45.7 fL (36.4-46.3); WHITE BLOOD COUNT 9.37 K/uL (4.8-10.8)
[2017-08-11 06:50] LABS: CALCIUM 8.3 mg/dl (8.5-10.1); CKMB 41.1 ng/ml (0.5-3.6); CREATININE 0.85 mg/dl (0.60-1.20); POTASSIUM 3.8 mmol/L (3.5-5.1)
[2017-08-11] MEDS: OXYBUTYNIN CHLORIDE 5 MG TABCR PO SCH (07:55)
[2017-08-11] MEDS: ATORVASTATIN 40 MG TAB PO SCH (07:55)
[2017-08-11] MEDS: METOPROLOL TARTRATE 25 MG TAB PO SCH ×2 (07:55→21:12)
[2017-08-11] MEDS: ASPIRIN 81 MG ECTAB PO SCH (07:56)
[2017-08-11] MEDS: CLOPIDOGREL BISULFATE 75 MG TAB PO SCH (07:56)
[2017-08-11] MEDS: MULTIVITAMIN TAB PO SCH (07:56)
[2017-08-11] MEDS: LOSARTAN POTASSIUM 50 MG TAB PO SCH (07:56)
[2017-08-11] MEDS: ASCORBIC ACID 500 MG TAB PO SCH (07:56)
[2017-08-11] MEDS: AMOXICILLIN 500 MG CAP PO SCH ×2 (07:57→21:12)
[2017-08-11] MEDS ORDERED: PERFLUTREN LIPID MICROSPHERE (DEFINITY) IV ONE (08:39)
--- NOTE | 2017-08-11 09:43 | Clinical Documentation Query ---
CLINICAL DOCUMENTATION QUERY Ms. BARBER, In your clinical opinion is this patient being managed for: (x ) NSTEMI ( ) Not Agree ( ) Other explanation of clinical findings (No explanation is considered a No Response) ( ) Unable to determine ( ) Need to Discuss (Phone CDS or qliq) (No discussion is considered a No Response) The medical record reflects the following clinical findings, treatment, and risk factors. Clinical Indicators: 82 yo female presenting with chest pain. Trops 0.034/1.370/17/900/13.800. EKG with nonspecific T wave abnormality which developed after inital EKG. Taken emergently to label remover. Treatment: tele, cardiac cath with JOHN, cardiology consult, NTG sl, heparin gtt, ECHO, NTP, lipitor Risk Factors: age, HTN, HDL, CVA, CKD Please clarify and document your clinical opinion in the progress notes and discharge summary. Terms such as "probable", "suspected", "likely", "questionable", "possible", or "still to be ruled out" are acceptable. IF IN AGREEMENT, YOU MUST DOCUMENT ABOVE DIAGNOSTIC STATEMENT IN DAILY PROGRESS NOTES AND DISCHARGE SUMMARY. This document is not part of the patient's record. Thank You, Dayanna Johnson RN [phone]
[2017-08-11 10:05] LABS: PTT PATIENT 61.9 SECONDS (21.0-31.0)
--- NOTE | 2017-08-11 10:27 | Hospitalist Progress Note ---
Hospitalist Progress Note Date of Service Aug 11, 2017. Subjective Pt evaluation today including: conversation w/ patient, conversation w/ family ( and daugther at bedside), physical exam, chart review, lab review, conversation w/ field sales consultant, review of inpatient medication list Pain: Headache PO Intake: NPO Voiding: incontinence Patient reports feeling better than yesterday. She denies chest pain, left arm pain, left leg pain, shortness of breath, tingling, and weakness currently. She states her abdominal pain and nausea is resolved today. She is still having urinary incontinence, but this is improved from yesterday. The patient denies fevers, chills, sweats, chest pain, palpitations, claudication, cough, wheezing, shortness of breath, nausea, vomiting, abdominal pain, dysuria, hematuria, urinary retention, paralysis, weakness, numbness and tingling. Additional Comments: See HPI for pertinent positives and negatives. All other systems reviewed and negative. Objective Vital Signs Date Time Temp Pulse Resp B/P (MAP) Pulse Ox O2 Delivery O2 Flow Rate FiO2 08/11/17 08:00 Room Air 08/11/17 07:52 36.6 80 16 145/77 (99) 93 08/11/17 04:00 92 Room Air 08/11/17 03:46 36.5 74 18 145/74 (97) 94 Room Air 08/11/17 00:00 92 Room Air 08/10/17 22:51 36.9 64 17 124/75 (91) 93 Room Air 08/10/17 21:45 81 18 128/70 (89) 93 Room Air 08/10/17 21:39 75 126/73 (90) 94 08/10/17 21:08 79 108/70 (83) 92 08/10/17 20:53 82 115/73 (87) 08/10/17 20:45 90 18 121/71 (88) 92 Room Air 08/10/17 20:38 82 113/75 (88) 91 08/10/17 20:15 92 18 116/67 (83) 92 Room Air 08/10/17 20:00 92 Room Air 08/10/17 19:45 105 18 127/83 (98) 92 Room Air 08/10/17 19:30 90 18 120/76 (91) 93 Room Air 08/10/17 19:17 36.6 94 18 128/73 92 Room Air 08/10/17 19:15 86 18 126/79 (95) 92 Room Air 08/10/17 19:00 88 18 136/81 (99) 92 Room Air 08/10/17 18:35 94 18 132/79 (96) 98 Room Air 08/10/17 18:20 88 18 127/88 (101) 98 Room Air 08/10/17 16:19 108 16 153/94 93 Room Air 08/10/17 16:06 100 16 143/100 95 Room Air 08/10/17 15:44 88 16 161/98 98 Room Air 08/10/17 15:05 85 16 177/97 97 Room Air 08/10/17 12:26 69 20 156/91 96 Room Air 08/10/17 11:10 73 20 166/100 96 Room Air 08/10/17 10:56 77 08/10/17 10:47 73 20 166/93 95 86 175/107 82 175/123 08/10/17 10:33 36.8 70 18 148/92 93 Room Air Physical Exam Notes: General appearance: +Obese. Well-developed, well-nourished, no apparent distress Head: Normocephalic, atraumatic Eyes: Normal inspection, PERRL, EOMI ENT: Normal ENT inspection, hearing grossly normal, pharynx normal Neck: Supple, no JVD, trachea midline Respiratory/Chest: Lungs clear to auscultation, normal breath sounds, no respiratory distress Cardiovascular: Regular rate & rhythm, no gallop, no murmur Abdomen/GI: +Mild diffuse abdominal tenderness, denies pain w/o palpation. Colostomy LLQ. Normal bowel sounds, soft Extremities/Musculoskeletal: Normal inspection, no calf tenderness, no pedal edema Neurological/Psych: +Right leg strength 4/5, residual from prior CVA. Alert, normal mood/affect, oriented x 3 Skin: Normal color, warm/dry, no rash Laboratory Results Last 24 Hours Test 08/10/17 10:45 08/10/17 12:18 08/10/17 13:32 08/10/17 17:42 White Blood Count 7.77 K/uL Red Blood Count 4.36 M/uL Hemoglobin 13.2 g/dL Hematocrit 39.5 % Mean Corpuscular Volume 90.6 fL Mean Corpuscular Hemoglobin 30.3 pg Mean Corpuscular Hemoglobin Concent 33.4 g/dl Platelet Count 392 K/uL Mean Platelet Volume 9.6 fL Neutrophils (%) (Auto) 62.9 % Lymphocytes (%) (Auto) 24.7 % Monocytes (%) (Auto) 10.7 % Eosinophils (%) (Auto) 0.9 % Basophils (%) (Auto) 0.5 % Neutrophils # (Auto) 4.89 K/uL Lymphocytes # (Auto) 1.92 K/uL Monocytes # (Auto) 0.83 K/uL Eosinophils # (Auto) 0.07 K/uL Basophils # (Auto) 0.04 K/uL RDW Standard Deviation 44.9 fL RDW Coefficient of Variation 13.4 % Immature Granulocyte % (Auto) 0.3 % Immature Granulocyte # (Auto) 0.02 K/uL Prothrombin Time 10.0 SECONDS Prothromb Time International Ratio 1.0 Activated Partial Thromboplast Time 27.8 SECONDS Partial Thromboplastin Ratio 1.1 Sodium Level 136 mmol/L Potassium Level 4.1 mmol/L Chloride Level 101 mmol/L Carbon Dioxide Level 29 mmol/L Anion Gap 6.0 mmol/L Blood Urea Nitrogen 18 mg/dl Creatinine 0.95 mg/dl Est Creatinine Clear Calc Drug Dose 45.9 ml/min Estimated GFR () 65.6 Estimated GFR (Non- 56.6 BUN/Creatinine Ratio 18.7 Random Glucose 119 mg/dl Calcium Level 8.4 mg/dl Magnesium Level 2.1 mg/dl Total Bilirubin 0.4 mg/dl Direct Bilirubin < 0.1 mg/dl Aspartate Amino Transf (AST/SGOT) 31 U/L Alanine Aminotransferase (ALT/SGPT) 27 U/L Alkaline Phosphatase 94 U/L Troponin I 0.034 ng/ml 1.370 ng/ml Total Protein 7.0 gm/dl Albumin 3.0 gm/dl Lipase 155 U/L Urine Color YELLOW Urine Appearance CLEAR Urine pH 8.0 Urine Specific [place] 1.008 Urine Protein NEG Urine Glucose (UA) NEG Urine Ketones NEG Urine Occult Blood NEG Urine Nitrite NEG Urine Bilirubin NEG Urine Urobilinogen NEG Urine Leukocyte Esterase NEG Urine WBC (Auto) 1-5 /hpf Urine RBC (Auto) 0-4 /hpf Urine Hyaline Casts (Auto) 1-5 /lpf Urine Epithelial Cells (Auto) 20-30 /lpf Urine Bacteria (Auto) NEG [place] Activated Coagulation Time 169 SECONDS Test 08/10/17 17:57 08/10/17 21:25 08/11/17 02:26 08/11/17 05:30 [place]olin Activated Coagulation Time 257 SECONDS Total Creatine Kinase 514 U/L 446 U/L Creatine Kinase MB 58.7 ng/ml 41.1 ng/ml Creatine Kinase MB Ratio 11.4 9.2 Troponin I 17.900 ng/ml 13.800 ng/ml Activated Partial Thromboplast Time 78.4 SECONDS Partial Thromboplastin Ratio 3.0 White Blood Count 9.37 K/uL Red Blood Count 3.92 M/uL Hemoglobin 12.0 g/dL Hematocrit 35.4 % Mean Corpuscular Volume 90.3 fL Mean Corpuscular Hemoglobin 30.6 pg Mean Corpuscular Hemoglobin Concent 33.9 g/dl RDW Standard Deviation 45.7 fL RDW Coefficient of Variation 13.8 % Platelet Count 361 K/uL Mean Platelet Volume 9.7 fL Sodium Level 139 mmol/L Potassium Level 3.8 mmol/L Chloride Level 107 mmol/L Carbon Dioxide Level 25 mmol/L Anion Gap 8.0 mmol/L Blood Urea Nitrogen 14 mg/dl Creatinine 0.85 mg/dl Est Creatinine Clear Calc Drug Dose 51.2 ml/min Estimated GFR () 75.0 Estimated GFR (Non- 64.7 BUN/Creatinine Ratio 16.9 Random Glucose 104 mg/dl Calcium Level 8.3 mg/dl Triglycerides Level 214 mg/dl Cholesterol Level 163 mg/dl HDL Cholesterol 25 mg/dl LDL Cholesterol, Calculated 95 mg/dl VLDL Cholesterol, Calculated 43 mg/dl Cholesterol/HDL Ratio 6.5 Test 08/11/17 09:08 Activated Partial Thromboplast Time 61.9 SECONDS Partial Thromboplastin Ratio 2.4 Assessment and Plan 82 y/o female with a history of HTN, HLD, CVA about 5 months ago, CKD stage III , neuropathy, h/o breast cancer, partial colectomy, and GERD who presented to the ED on 08/10 with chest pain and left arm pain. Pt afebrile, VSS. Head CT negative for acute disease. KUB negative. EKGs in ED without acute ischemic changes. Troponin was initially 0.034, but patient then complained of chest pain, ongoing left arm pain. Repeat troponin 1.37. NSTEMI--ongoing -Admit to telemetry. No acute events overnight. Patient in sinus rhythm with HR in 70s. -Cardiology consulted, appreciate recs: Spoke with Dr. Page following cath yesterday. Stent placed in mid LAD. Recommend initiating beta aiden and high intensity statin. Pt reportedly had liver issues w/previous statin use , monitor LFTs. Possible PCI of circumflex today. -Cardiac cath showed severe multivessel CAD, most notably mid LAD with 90-95% stenosis, mid circumflex 90%. Successful PCI of mid LAD and 1 JOHN placed -Patient to go to cath again today for circumflex intervention -Heparin drip -Troponin peaked at 17.9, now trending down -Echocardiogram pending -Nitro paste q6h -Continue Lipitor 40 mg PO qd, monitor LFTs. Continue ASA -Started on Lopressor 25 mg PO BID per cardio -Lipid panel shows triglycerides 214, total cholesterol 163, non HDL 138 -CTA of chest to rule out PE on hold due to contrast given for caths HTN, HLD, h/o CVA w/residual right sided weakness--stable -Continue Plavix, losartan 50 mg PO qd, Zetia 10 mg PO qd -Lopressor, Lipitor and ASA as above -Transaminases WNL on admission, continue to monitor CKD stage III--stable Urinary incontinence--improving -UA negative -Continue oxybutynin 5 mg PO qd H/o breast cancer s/p lumpectomy and radiation--noted H/o diverticulitis s/p partial colectomy--noted DVT prophylaxis -Heparin drip -RANDA baker and Monica Code Status -Level I, FULL RESUSCITATION STATUS -No prolonged measures
[2017-08-11 10:59] LABS: ALBUMIN 2.8 gm/dl (3.4-5.0); TOTAL PROTEIN 6.3 gm/dl (6.4-8.2)
--- NOTE | 2017-08-11 11:10 | CARDIOLOGY PROGRESS NOTE ---
DATE: 08/11/2017 SUBJECTIVE: Mrs. Grace is resting comfortably in bedside chair without complaints of chest pain or dyspnea. Her and daughter are at the bedside. We have had a long discussion regarding the events leading up to and of this hospitalization. She will undergo a staged procedure later this morning with Dr. Johnson. OBJECTIVE: VITAL SIGNS: Blood pressure 145/77 with a regular pulse of 80. Respiratory rate is 16 and the patient is afebrile at 36.6 degrees Celsius. Saturation is 93% on room air. NECK: Supple with full carotid upstrokes. There are no carotid bruits. Jugular venous pressure is flat at 90 degrees. There is no thyromegaly. CARDIOVASCULAR: Reveals a regular rhythm with normal S1, S2. Heart sounds are distant. No obvious murmurs. LUNGS: Clear without rales, rhonchi, or wheeze. ABDOMEN: Soft, nontender without bruits. EXTREMITIES: Reveal intact radial artery pulses bilaterally. Right radial artery does have a dressing intact and dry. No peripheral edema. DATA: CBC notes hemoglobin of 12.0, hematocrit 35.4, white count 9.3, platelet count 145,000. Electrolytes note a sodium of 139, potassium 3.8, chloride 107, bicarbonate 25, BUN 14, creatinine 0.85, glucose 104. Troponin I level peaked at 17.9, and now down to 13.8. CK peaked at 514 and is now down to 446. telemetry monitor is benign. IMPRESSION AND PLAN: 1. Non-ST elevation myocardial infarction -- patient had a single drug-eluting stent placed in the mid left anterior descending by Dr. Johnson yesterday. We will likely have percutaneous coronary intervention performed of the circumflex later today. 2. Hypertension -- controlled. 3. History of cardiovascular accident. 4. Hypercholesterolemia. 5. Breast carcinoma -- status post lumpectomy and XRT in 2006. 6. Hereditary spherocytosis. MTDD
[2017-08-11] MEDS ORDERED: MIDAZOLAM HCL 1 MG/ML 2ML VIAL ONE ×2 (12:53→14:12)
[2017-08-11] MEDS ORDERED: NiCARDipine HCL INJ 2.5 MG/ML 10 ML AMP ONE (12:53)
[2017-08-11] MEDS ORDERED: FENTANYL CITRATE INJ 50 MCG/1 ML 2 ML VIAL ONE (12:53)
[2017-08-11] MEDS ORDERED: HEPARIN SOD (PORCINE) 1000 UNIT/ML 10 ML VIAL ONE (12:53)
[2017-08-11] MEDS ORDERED: NITROGLYCERIN/D5W 100MCG/ML 20ML SYR ONE (12:54)
[2017-08-11] MEDS ORDERED: SODIUM CHLORIDE 0.9% 1000ML 500 ML IV SCH (14:55)
--- NOTE | 2017-08-11 15:04 | Cardiac Catheterization ---
Procedure Note Procedure Date Aug 10, 2017. Pre-Procedure Diagnosis Non STEMI AUC Score 8 Post-Procedure Diagnosis Severe CAD, Successful PCI Procedure(s) Performed Drug Eluting Stent Digital Account Executive It Security Specialist(s) Contino Estimated Blood Loss 15 Medication(s) Fentanyl, Heparin, Nicardipine, Nitroglycerin, Versed Summary of Findings Indication: High-risk NSTEMI Access: 6Fr right radial artery Catheters: EBU 3.5 guide Findings: For full details of patient's coronary angiography please cath report dictated by Dr. Page. Briefly, patient found to have multivessel disease including a 99% stenosis involving the mid LAD. Decision to proceed with PCI. -- PCI -- Antithrombotic therapy: Heparin, Clopidogrel Procedure: LM cannulated with EBU 3.5 guide Bottom Liquor Attendant 50 wire passed across lesion into distal vessel Mid LAD lesion predilated with 2.5 compliant balloon Dilated lesion stented with 2.5 x 22 Thaddeus JOHN Stent post-dilated with 2.5 noncompliant balloon IC vasodilators administered for spasm Post procedure JA 3 flow, stent well expanded with minimal residual stenosis and no apparent cardiac complications. Arterial Closure: TR Band Summary: 1. Successful PCI of mid LAD with single JOHN (2.5 x 22 [place]). 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 Hemodynamics Rest Ao: 138/72/103 Final Ao: 121/59/89 LV: 129/4 Recommendations PCI without planned CABG Specimens None Radiation Exposure (mGy) 2699 Contrast (mls) 215 Visi Fluids (cc crystalloids) 153 Drains none Anesthesia moderate Procedural Complication(s) None Disposition PCU ACC Data Cardiac Status Clinical evaluation leading to the procedure CAD Presntation: Non STEMI Anginal Classification: CCS IV Heart Failure: No, NYHA Class: CCS I Cardiogenic Shock w/in 24Hrs: No Cardiac Arrest w/in 24Hrs: No Imaging studies past 6 months: No Stress studies past 6 months: No Standard Exercise Stress Test: No Stress Echocardiogram: No Diagnostic Physician's Name: Nithin Page MD Status: Urgent Closure Device Percutaneous Entry Location: Radial Closure Device: Radial Band Recommendations: PCI without planned CABG PCI Indication: PCI for high risk Non-STEMI Lesion Segment Name: mid LAD Culprit Artery: Yes Stenosis Prior to Rx (%): 99 Chronic Total Occlusion: No IVUS: No FFR: No Pre-Procedure JA Flow: 2 Previously Treated Lesion: No Lesion Complexity: Non-High/Non-C Lesion Length (mm): 15 Thrombus Present: Yes Bifurcation Lesion: No Guidewire Across Lesion: Yes Guidewire: Stenosis Post-Procedure (%): 0 Post-Procedure JA Flow: 3 Device(s) Deployed: Yes Intraprocedure Events Significant Dissection: No Perforation: No
--- NOTE | 2017-08-11 15:06 | Pre Sedation Assessment ---
Pre Sedation Assessment General Date of Sedation: Aug 11, 2017. Vital Signs Past 12 Hours Date Time Temp Pulse Resp B/P (MAP) Pulse Ox O2 Delivery O2 Flow Rate FiO2 08/11/17 14:50 65 18 127/76 (93) 99 Room Air 08/11/17 14:40 65 18 138/86 (103) 99 Room Air 08/11/17 14:35 55 16 118/68 (85) 99 Room Air 08/11/17 11:50 36.9 64 16 124/74 (91) 93 Room Air 08/11/17 08:00 Room Air 08/11/17 07:52 36.6 80 16 145/77 (99) 93 08/11/17 04:00 92 Room Air 08/11/17 03:46 36.5 74 18 145/74 (97) 94 Room Air Review Cardiovascular: regular rate, rhythm Lungs: lungs clear Pre-Sedation Airway Assessment Smoking Status: Never Smoker Hx of Sleep Apnea: No Short Thick Neck: Yes Thyro-mental Distance: > 3 Finger Breadths Oral Cavity: Dentures Mallampati Classification: Class III ASA Classification: Class III NPO Status Date of Last Intake of Fluids: Aug 11, 2017 Time of Last Intake of Fluids: 729 Date of Last Intake of Solids: Aug 11, 2017 Time of Last Intake of Solids: 729 Procedure Planning Contraindications for Sedation: None Current Medications Reviewed: Yes Notes The planned sedation has been discussed with the patient. Informed Consent was obtained. I have identified the patient, determined the appropriateness of sedation and have assessed the patient immediately prior to the procedure. All medicine(s) and interventions are by my order.
--- NOTE | 2017-08-11 15:06 | Post Sedation Assessment ---
Post Sedation Assessment General Date of Sedation Aug 11, 2017. Vital Signs: Vital Signs Past 12 Hours Date Time Temp Pulse Resp B/P (MAP) Pulse Ox O2 Delivery O2 Flow Rate FiO2 08/11/17 14:50 65 18 127/76 (93) 99 Room Air 08/11/17 14:40 65 18 138/86 (103) 99 Room Air 08/11/17 14:35 55 16 118/68 (85) 99 Room Air 08/11/17 11:50 36.9 64 16 124/74 (91) 93 Room Air 08/11/17 08:00 Room Air 08/11/17 07:52 36.6 80 16 145/77 (99) 93 08/11/17 04:00 92 Room Air 08/11/17 03:46 36.5 74 18 145/74 (97) 94 Room Air Post Procedure Recovery Score Activity: (2) Moves 4 extremities * Respiration: (2) Deep breath/cough Circulation: (2) +/-20% PreAnes Value Consciousness: (2) Fully Awake Oxygen Saturation: (2) > 92% On Room Air Post Anesthesia Score: 8 Discharge Sedation Level of Care: Fast Track Phase II Post Sedation Plan On clinical assessment, the patient appears to have tolerated the sedation without complications. Patient is recovering as anticipated. Patient will continue to be monitored by nursing and may be discharged when sedation discharge criteria are met per below protocol. Upon Completions of procedure and additional 15 minutes continue every 5 minute vital signs and the P.A.R. score; then discharge to a Phase I or Fast Track to Phase II per the following guidelines: * Discharge Patient to appropriate Phase II area if PAR is 8 or greater or return to pre- procedure baseline. The post - procedure orders will be as directed. * If PAR score is less than 8 or not return to pre-procedure baseline then patient will follow Phase I monitoring till PAR is reached for Phase II. The Phase I may be done in procedure room or may call to secure a Phase I area. * If naloxone or flumazenil are used for reversal, hold in Phase I for an additional 60 -120 minutes before discharge to Phase II. Please call the Sedation Physician to re-evaluate and complete post-note for discharge to Phase II area. Do NOT discharge from procedure sedation or Phase 1 until post- sedation evaluation note is complete by procedure /sedation MD Sedation Discharge Instructions to be given to the patient at discharge to home.
--- NOTE | 2017-08-11 15:17 | Cardiac Catheterization ---
Procedure Note Procedure Date Aug 11, 2017. Pre-Procedure Diagnosis Non STEMI AUC Score 8 Post-Procedure Diagnosis Severe CAD, Successful PCI Procedure(s) Performed Drug Eluting Stent, IVUS Television News Reporter Alex Car Mover(s) Britton Estimated Blood Loss 15 Medication(s) Fentanyl, Heparin, Nicardipine, Nitroglycerin, Versed, Lidocaine 1% Summary of Findings Indication: Staged PCI of Circumflex Access: 6Fr right radial artery Catheters: EBU 3.5 guide -- PCI -- Antithrombotic therapy: Heparin, Clopidogrel Procedure: LM cannulated with EBU 3.5 guide General Cargo Clerk 50 wire passed across lesion into distal vessel Prowater wire placed into large OM2 Mid circumflex lesion predilated with 3.0 compliant balloon Dilated lesion stented with 4.5 x 18 [place] JOHN Stent post-dilated with 4.5 noncompliant balloon Wires removed and whisper wire placed down LAD IVUS used to assess previously placed mid LAD stent and haziness just proximal to stent IVUS showed underexpanded proximal aspect of stent with moderate to severe, calcified disease in the early-mid segment. Proximal to mid segments pre-dilated with 2.5 balloon. Proximal to mid 3.0 x 18 [place] JOHN placed Stent post-dilated with 3.0 NC balloon to high atmospheres. IC vasodilators administered for spasm IVUS revealed well expanded stent and apparent proximal vessel complications. Post procedure JA 3 flow, stent well expanded with minimal residual stenosis and no apparent cardiac complications. Arterial Closure: TR Band (hematoma noted proximal to TR Band - 2nd band placed) . Summary: 1. Successful PCI of mid circumflex with single JOHN (4.5 x 18 [place]). 2. Successful PCI of proximal to mid LAD with single JOHN (3.0 x 18 [place]) overlapping with proximal aspect of prior stent placed yesterday. Recommendations: To PCU for continued monitoring Continue dual-antiplatelet therapy for at least 1 year Continue statin, and ASCVD risk factor modification Consult cardiac Rehab Hemodynamics Rest Ao: 154/70/110 Final Ao: 109/66/85 LV: -- Recommendations PCI without planned CABG Specimens None Radiation Exposure (mGy) 3503 Contrast (mls) 155 Fluids (cc crystalloids) 200 Drains none Anesthesia moderate Procedural Complication(s) None Disposition PCU ACC Data Cardiac Status Clinical evaluation leading to the procedure CAD Presntation: Non STEMI Anginal Classification: CCS IV Heart Failure: No, NYHA Class: CCS I Cardiogenic Shock w/in 24Hrs: No Cardiac Arrest w/in 24Hrs: No Imaging studies past 6 months: Yes Stress studies past 6 months: No Closure Device Percutaneous Entry Location: Radial Closure Device: Radial Band Recommendations: PCI without planned CABG PCI Indication: Staged PCI Lesion Segment Name: Circumflex Culprit Artery: No Stenosis Prior to Rx (%): 90 Chronic Total Occlusion: No IVUS: No FFR: No Pre-Procedure JA Flow: 3 Previously Treated Lesion: No Lesion Complexity: Non-High/Non-C Lesion Length (mm): 12 Thrombus Present: Yes Bifurcation Lesion: Yes Guidewire Across Lesion: Yes Guidewire: Stenosis Post-Procedure (%): 0 Post-Procedure JA Flow: 3 Device(s) Deployed: Yes Intraprocedure Events Significant Dissection: No Perforation: No
--- NOTE | 2017-08-11 15:22 | Progress Note ---
Subjective Date of Service: Aug 11, 2017. Subjective Pt evaluation today including: conversation w/ patient, conversation w/ family , physical exam, chart review, lab review, review of studies, conversation w/ specialty sales consultant, review of inpatient medication list Out of bed to the restroom, mild dizziness, denies chest pain Problem List Medical Problems: (1) Abnormal EKG Status: Acute (2) Bilateral arm pain Status: Acute (3) Chest pain Status: Acute (4) Dehydration Status: Acute (5) Diarrhea Status: Acute (6) Diarrhea Status: Acute (7) GI bleed Status: Acute (8) Headache Status: Acute (9) Hypertension Status: Acute (10) NSTEMI (non-ST elevated myocardial infarction) Status: Acute (11) Sinusitis Status: Acute (12) Upper abdominal pain Status: Acute Review of Systems Constitutional: No fever, No chills, No sweats, No weight loss, No weakness, No fatigue, No problem reported Eyes: No worsening of vision, No eye pain, No redness, No discharge, No diplopia ENT: No hearing loss, No unusual epistaxis, No nasal symptoms, No sore throat, No tinnitus, No dental problems, No trouble swallowing Respiratory: No cough, No sputum, No wheezing, No shortness of breath, No dyspnea on exertion, No dyspnea at rest, No hemoptysis Cardiac: No chest pain, No orthopnea, No PND, No edema, No claudication, No palpitations Abdomen: No pain, No nausea, No vomiting, No diarrhea, No constipation Musculoskeletal: No joint pain, No muscle pain, No swelling, No calf pain Female : No dysuria, No urinary frequency, No hematuria, No incontinence, No abnormal vaginal bleeding, No vaginal discharge Neurologic: No memory loss, No paralysis, No weakness, No numbness/tingling, No vertigo, No balance problems Psychiatric: No depression symptoms, No anhedonism, No anxiety, No insomnia, No substance abuse Heme: No abnormal bleeding/bruising, No clotting problems, No swollen lymph nodes, No night sweats Endo: No fatigue, No excessive thirst, No excessive urination Skin: No rash, No itch, No new/changing skin lesions, No color change, No bleeding Objective Vital Signs Date Time Temp Pulse Resp B/P (MAP) Pulse Ox O2 Delivery O2 Flow Rate FiO2 08/11/17 15:13 36.8 66 16 127/78 (94) 95 Room Air 08/11/17 14:50 65 18 127/76 (93) 99 Room Air 08/11/17 14:40 65 18 138/86 (103) 99 Room Air 08/11/17 14:35 55 16 118/68 (85) 99 Room Air 08/11/17 11:50 36.9 64 16 124/74 (91) 93 Room Air 08/11/17 08:00 Room Air 08/11/17 07:52 36.6 80 16 145/77 (99) 93 08/11/17 04:00 92 Room Air 08/11/17 03:46 36.5 74 18 145/74 (97) 94 Room Air 08/11/17 00:00 92 Room Air 08/10/17 22:51 36.9 64 17 124/75 (91) 93 Room Air 08/10/17 21:45 81 18 128/70 (89) 93 Room Air 08/10/17 21:39 75 126/73 (90) 94 08/10/17 21:08 79 108/70 (83) 92 08/10/17 20:53 82 115/73 (87) 08/10/17 20:45 90 18 121/71 (88) 92 Room Air 08/10/17 20:38 82 113/75 (88) 91 08/10/17 20:15 92 18 116/67 (83) 92 Room Air 08/10/17 20:00 92 Room Air 08/10/17 19:45 105 18 127/83 (98) 92 Room Air 08/10/17 19:30 90 18 120/76 (91) 93 Room Air 08/10/17 19:17 36.6 94 18 128/73 92 Room Air 08/10/17 19:15 86 18 126/79 (95) 92 Room Air 08/10/17 19:00 88 18 136/81 (99) 92 Room Air 08/10/17 18:35 94 18 132/79 (96) 98 Room Air 08/10/17 18:20 88 18 127/88 (101) 98 Room Air 08/10/17 16:19 108 16 153/94 93 Room Air 08/10/17 16:06 100 16 143/100 95 Room Air 08/10/17 15:44 88 16 161/98 98 Room Air Physical Exam General Appearance: WD/WN, no apparent distress Eyes: normal inspection, PERRL, EOMI, sclerae normal ENT: normal ENT inspection, hearing grossly normal, pharynx normal Neck: supple, no adenopathy, thyroid normal, no JVD, no carotid bruits, trachea midline Respiratory/Chest: chest non-tender, normal breath sounds, no respiratory distress, no accessory muscle use, + decreased breath sounds Cardiovascular: regular rate, rhythm, no edema, no gallop, no JVD, no murmur Abdomen: normal bowel sounds, non tender, soft, no organomegaly, no pulsatile mass Extremities: normal range of motion, non-tender, normal inspection, no pedal edema, no calf tenderness, normal capillary refill, pelvis stable Neurologic/Psychiatric: rail specialist II-XII nml as tested, no motor/sensory deficits, alert, normal mood/affect, oriented x 3 Skin: normal color, warm/dry, no rash Lymphatic: no adenopathy Laboratory Results Last 24 Hours Test 08/10/17 17:42 08/10/17 17:57 08/10/17 21:25 08/11/17 02:26 Kaolin Activated Coagulation Time 169 SECONDS 257 SECONDS Total Creatine Kinase 514 U/L Creatine Kinase MB 58.7 ng/ml Creatine Kinase MB Ratio 11.4 Troponin I 17.900 ng/ml Activated Partial Thromboplast Time 78.4 SECONDS Partial Thromboplastin Ratio 3.0 Test 08/11/17 05:30 08/11/17 09:08 08/11/17 14:54 White Blood Count 9.37 K/uL Red Blood Count 3.92 M/uL Hemoglobin 12.0 g/dL Hematocrit 35.4 % Mean Corpuscular Volume 90.3 fL Mean Corpuscular Hemoglobin 30.6 pg Mean Corpuscular Hemoglobin Concent 33.9 g/dl RDW Standard Deviation 45.7 fL RDW Coefficient of Variation 13.8 % Platelet Count 361 K/uL Mean Platelet Volume 9.7 fL Sodium Level 139 mmol/L Potassium Level 3.8 mmol/L Chloride Level 107 mmol/L Carbon Dioxide Level 25 mmol/L Anion Gap 8.0 mmol/L Blood Urea Nitrogen 14 mg/dl Creatinine 0.85 mg/dl Est Creatinine Clear Calc Drug Dose 51.2 ml/min Estimated GFR () 75.0 Estimated GFR (Non- 64.7 BUN/Creatinine Ratio 16.9 Random Glucose 104 mg/dl Calcium Level 8.3 mg/dl Total Bilirubin 0.4 mg/dl Direct Bilirubin 0.1 mg/dl Aspartate Amino Transf (AST/SGOT) 102 U/L Alanine Aminotransferase (ALT/SGPT) 36 U/L Alkaline Phosphatase 89 U/L Total Creatine Kinase 446 U/L Creatine Kinase MB 41.1 ng/ml Creatine Kinase MB Ratio 9.2 Troponin I 13.800 ng/ml Total Protein 6.3 gm/dl Albumin 2.8 gm/dl Triglycerides Level 214 mg/dl Cholesterol Level 163 mg/dl HDL Cholesterol 25 mg/dl LDL Cholesterol, Calculated 95 mg/dl VLDL Cholesterol, Calculated 43 mg/dl Cholesterol/HDL Ratio 6.5 Activated Partial Thromboplast Time 61.9 SECONDS Partial Thromboplastin Ratio 2.4 Assessment and Plan 82 y/o female admitted 08/10 with chest pain and left arm pain that he was found has STEMI,, Had a left heart cath and LAD drug-eluting stent placed yesterday, Past medical history of HTN, HLD, CVA about 5 months ago, CKD stage III, neuropathy, h/o breast cancer, partial colectomy, and GERD Multiple coronal vessel disease with CAD, s/p LAD drug-eluting stent yesterday in ED Troponin was initially 0.034, resected chest pain, radiation to left arm and peaked troponin Planning to do another stent today Continue dural anti platelets Continue nitro paste q6h, stenting, History of HTN, HLD, h/o CVA w/residual right sided weakness--stable CKD stage III Urinary incontinence H/o breast cancer s/p lumpectomy and radiation--noted H/o diverticulitis s/p partial colectomy The above conditions stable Continue current care follow-up cardiology input, discussed with patient and family, GI DVT prophylaxis covered, patient is full code Continued [facility] stay due to: multiple IV medications needed Discharge planning: home
--- NOTE | 2017-08-11 16:17 | ECHOCARDIOGRAM REPORT ---
*NOTICE TO RECEIVING [employer] This information is strictly Confidential and protected under [place] law. [place] law prohibits you from making any further disclosure of this information unless further disclosure is expressly permitted by the written consent of the person to whom it pertains or is authorized by law. A general authorization for the release of medical or other information is not sufficient for this purpose. Hospital accepts no responsibility if the information is made available to any other person, INCLUDING THE PATIENT. Interpretation Summary * Name: FLO DYE Study Date: 08/11/2017 06:48 AM BP: 145/74 mmHg * Patient Location: C.2T\S\E220\S\1 HR: 75 * : 1935 (M/d/yyyy) Gender: Female Height: 60 in * Age: 82 yrs Ethnicity: CA Weight: 188 lb * Ordering Physician: Sarahi Washington * Referring Physician: Self, Referred * Performed By: Holli Fowler RDCS * * Reason For Study: CHEST PAIN * BSA: 1.8 m2 * -- Conclusions -- * 1. Normal LV size, mild concentric LVH. * 2. LVEF 55-60%. Apical akinesis. No LV thrombus. * 3. Normal RV size and function. * 4. Mild aortic regurgitation. * 5. Compared with prior study on 05/09/2017: Apical akinesis is new. Procedure Details * Left Ventricle The left ventricle is grossly normal size. There is mild concentric left ventricular hypertrophy. * Right Ventricle The right ventricle is grossly normal size. The right ventricular systolic function is normal as assessed by tricuspid annular plane systolic excursion (TAPSE) (normal >1.5 cm). * Atria The left atrial size is normal. Right atrial size is normal. No ASD detected; PFO is not assessed. * Mitral Valve The mitral valve is grossly normal. There is no mitral valve stenosis. There is trace mitral regurgitation. * Tricuspid Valve There is trace tricuspid regurgitation. * Aortic Valve The aortic valve opens well. The aortic valve is trileaflet. No hemodynamically significant valvular aortic stenosis. Mild aortic regurgitation. * Pulmonic Valve The pulmonary valve is inadequately visualized, but the Doppler data is adequate for interpretation. There is no pulmonic valvular stenosis. Trace pulmonic valvular regurgitation. * Great Vessels The aortic root and proximal ascending aorta are normal sized. Normal inferior vena cava size and collapsability with sniff indicates a normal right atrial pressure of 3 mmHg There is no evidence of pulmonary hypertension. The PA systolic pressure is less than 36 mmHg. * * MMode 2D Measurements and Calculations * IVSd 1.3 cm * IVSs 1.9 cm * * LVIDd 3.7 cm * LVIDs 2.5 cm * LVPWd 1.6 cm * LVPWs 1.7 cm * * IVS/LVPW 0.83 * FS 33.4 % * EDV(Teich) 57.5 ml * ESV(Teich) 21.3 ml * EF(Teich) 62.9 % * * EDV(cubed) 50.0 ml * ESV(cubed) 14.8 ml * EF(cubed) 70.4 % * % IVS thick 49.1 % * % LVPW thick 8.8 % * * LV mass(C)d 191.5 grams * LV mass(C)dI 105.3 grams/m\S\2 * LV mass(C)s 175.3 grams * LV mass(C)sI 96.4 grams/m\S\2 * * SV(Teich) 36.2 ml * SI(Teich) 19.9 ml/m\S\2 * SV(cubed) 35.2 ml * SI(cubed) 19.4 ml/m\S\2 * * Ao root diam 3.2 cm * Ao root area 8.1 cm\S\2 * LA dimension 3.4 cm * * LA/Ao 1.1 * LVOT diam 2.0 cm * LVOT area 3.2 cm\S\2 * * LVAd ap4 28.5 cm\S\2 * LVLd ap4 7.7 cm * EDV(MOD-sp4) 83.5 ml * EDV(sp4-el) 89.2 ml * LVAs ap4 16.3 cm\S\2 * LVLs ap4 6.5 cm * ESV(MOD-sp4) 31.9 ml * ESV(sp4-el) 34.7 ml * EF(MOD-sp4) 61.7 % * EF(sp4-el) 61.1 % * * LVAd ap2 29.2 cm\S\2 * LVLd ap2 7.8 cm * EDV(MOD-sp2) 85.9 ml * EDV(sp2-el) 91.9 ml * LVAs ap2 17.7 cm\S\2 * LVLs ap2 7.2 cm * ESV(MOD-sp2) 35.5 ml * ESV(sp2-el) 37.2 ml * EF(MOD-sp2) 58.6 % * EF(sp2-el) 59.5 % * * LVLd %diff 1.6 % * EDV(MOD-bp) 84.8 ml * LVLs %diff 9.1 % * ESV(MOD-bp) 35.1 ml * EF(MOD-bp) 58.6 % * * SV(MOD-sp4) 51.6 ml * SI(MOD-sp4) 28.4 ml/m\S\2 * * SV(MOD-sp2) 50.3 ml * SI(MOD-sp2) 27.7 ml/m\S\2 * * SV(MOD-bp) 49.7 ml * SI(MOD-bp) 27.3 ml/m\S\2 * * SV(sp4-el) 54.5 ml * SI(sp4-el) 30.0 ml/m\S\2 * * SV(sp2-el) 54.7 ml * SI(sp2-el) 30.1 ml/m\S\2 * * * Doppler Measurements and Calculations * MV E max loi 64.0 cm/sec * MV A max loi 94.1 cm/sec * * MV E/A 0.68 * * MV dec time 0.26 sec * * Ao V2 max 140.1 cm/sec * Ao max PG 7.8 mmHg * Ao max PG (full) 5.5 mmHg * JOSHUA(V,A) 1.8 cm\S\2 * JOSHUA(V,D) 1.8 cm\S\2 * * AI max loi 436.0 cm/sec * AI max PG 76.1 mmHg * AI dec slope 239.7 cm/sec\S\2 * AI P1/2t 532.8 msec * * LV V1 max PG 2.3 mmHg * * LV V1 max 76.6 cm/sec * * *
[2017-08-11] MEDS: CHOLECALCIFEROL 1000 INTER.UNIT TAB PO SCH (21:12)
[2017-08-11] MEDS: CETIRIZINE HCL 10 MG TAB PO SCH (21:12)
[2017-08-12] VITALS (8 sets, daily range): BP systolic 122–137; BP diastolic 75–82; PULSE 62–84; TEMP 36.5–37.5; O2SAT 91–95
[2017-08-12] MEDS: NITROGLYCERIN 2% OINTMENT 30GM TUBE EXT SCH (04:05)
[2017-08-12 06:09] LABS: HEMATOCRIT 34.3 % (37-47); HEMOGLOBIN 11.6 g/dL (12.0-16.0); MEAN CORPUSCULAR HEMOGLOBIN 30.8 pg (25-34); MEAN CORPUSCULAR HGB CONC 33.8 g/dl (32-36); MEAN PLATELET VOLUME 9.6 fL (7.4-10.4); PLATELET COUNT 339 K/uL (130-400); RED CELL DISTRIBUTION WIDTH CV 13.8 % (11.5-14.5); RED CELL DISTRIBUTION WIDTH SD 45.4 fL (36.4-46.3); WHITE BLOOD COUNT 10.37 K/uL (4.8-10.8)
[2017-08-12 06:25] LABS: PTT PATIENT 26.4 SECONDS (21.0-31.0)
[2017-08-12 06:43] LABS: ALBUMIN 2.7 gm/dl (3.4-5.0); ALKALINE PHOSPHATASE 85 U/L (45-117); ALT/SGPT 29 U/L (12-78); AST/SGOT 73 U/L (15-37); BLOOD UREA NITROGEN 16 mg/dl (7-18); CALCIUM 8.4 mg/dl (8.5-10.1); CARBON DIOXIDE 26 mmol/L (21-32); CREATININE 0.78 mg/dl (0.60-1.20); GLUCOSE 106 mg/dl (70-99); SODIUM 139 mmol/L (136-145); TOTAL PROTEIN 6.2 gm/dl (6.4-8.2)
[2017-08-12] MEDS: CLOPIDOGREL BISULFATE 75 MG TAB PO SCH (08:52)
[2017-08-12] MEDS: ACETAMINOPHEN 325 MG TAB PO PRN (08:52)
[2017-08-12] MEDS: POLYETHYLENE (MIRALAX) 17 GM PACK PO PRN (08:52)
[2017-08-12] MEDS: OXYBUTYNIN CHLORIDE 5 MG TABCR PO SCH (08:52)
[2017-08-12] MEDS: MULTIVITAMIN TAB PO SCH (08:52)
[2017-08-12] MEDS: LOSARTAN POTASSIUM 50 MG TAB PO SCH (08:52)
[2017-08-12] MEDS: AMOXICILLIN 500 MG CAP PO SCH ×2 (08:53→20:46)
[2017-08-12] MEDS: ASCORBIC ACID 500 MG TAB PO SCH (08:53)
[2017-08-12] MEDS: METOPROLOL TARTRATE 25 MG TAB PO SCH ×2 (08:53→20:46)
[2017-08-12] MEDS: ATORVASTATIN 40 MG TAB PO SCH (08:54)
[2017-08-12] MEDS: ASPIRIN 81 MG ECTAB PO SCH (08:54)
--- NOTE | 2017-08-12 09:35 | Cardiology Follow-Up ---
Subjective Subjective Date of Service: Aug 12, 2017. Pt evaluation today including: conversation w/ patient, conversation w/ family , physical exam, chart review, lab review, review of studies, conversation w/ moving consultant, review of inpatient medication list Additional Details: Feeling "lousy" this morning. Report dizziness with standing. No recurrent chest pain/arm pain or shortness of breath. Telemetry reviewed -- no events. Problem List Medical Problems: (1) Abnormal EKG Status: Acute (2) Bilateral arm pain Status: Acute (3) Chest pain Status: Acute (4) Dehydration Status: Acute (5) Diarrhea Status: Acute (6) Diarrhea Status: Acute (7) GI bleed Status: Acute (8) Headache Status: Acute (9) Hypertension Status: Acute (10) NSTEMI (non-ST elevated myocardial infarction) Status: Acute (11) Sinusitis Status: Acute (12) Upper abdominal pain Status: Acute Review of Systems Constitutional: No fever, No chills, No sweats, No weight loss, No weakness, No fatigue, No problem reported Eyes: No worsening of vision, No eye pain, No redness, No discharge, No diplopia ENT: No hearing loss, No unusual epistaxis, No nasal symptoms, No sore throat, No tinnitus, No dental problems, No trouble swallowing Respiratory: No cough, No sputum, No wheezing, No shortness of breath, No dyspnea on exertion, No dyspnea at rest, No hemoptysis Cardiac: No chest pain, No orthopnea, No PND, No edema, No claudication, No palpitations Abdomen: No pain, No nausea, No vomiting, No diarrhea, No constipation Musculoskeletal: No joint pain, No muscle pain, No swelling, No calf pain Female : No dysuria, No urinary frequency, No hematuria, No incontinence, No abnormal vaginal bleeding, No vaginal discharge Neurologic: No memory loss, No paralysis, No weakness, No numbness/tingling, No vertigo, No balance problems Psychiatric: No depression symptoms, No anhedonism, No anxiety, No insomnia, No substance abuse Heme: No abnormal bleeding/bruising, No clotting problems, No swollen lymph nodes, No night sweats Endo: No fatigue, No excessive thirst, No excessive urination Skin: No rash, No itch, No new/changing skin lesions, No color change, No bleeding Objective Vital Signs Last Vital Signs Documentation Date Time Temp Pulse Resp B/P (MAP) Pulse Ox O2 Delivery O2 Flow Rate FiO2 08/12/17 07:54 37.5 80 16 124/76 (92) 91 Room Air Physical Exam: General Appearance: no apparent distress ENT: hearing grossly normal, pharynx normal Neck: supple, no JVD Respiratory/Chest: chest non-tender, normal breath sounds, no respiratory distress, + rales (few at right base) Cardiovascular: regular rate, rhythm, no edema, no murmur Abdomen: non tender, soft Extremities: no pedal edema, no calf tenderness, + pertinent finding ( ecchymosis/hematoma at right radial artery access site. Distal pulse patent. Sensation intact) Neurologic/Psychiatric: alert, normal mood/affect Skin: normal color, warm/dry Lymphatic: no adenopathy Assessment and Plan 1. NSTEMI -- post PCI with DESx2 to proximal to mid LAD 2. Severe non-culprit CAD -- post PCI with JOHN to mid circumflex. 3. Preserved overall LV function with apical akinesis. 4. Right radial artery access site hematoma 5. Anemia 6. Hypertension 7. Dyslipidemia Feeling week and intermittently dizzy today but no recurrent chest/arm pain. BPs stable. LV function preserved on echo. Access site hematoma present -- intact distal perfusion/sensation Renal function stable -- Continue current DAPT with ASA/Plavix -- Discontinue nitropaste -- Continue current ARB/beta-aiden -- Continue re-trial of statin (previously intolerant) -- From a cardiac standpoint OK for discharge when OK from a medical, PT/OT standpoint. Continued [facility] stay due to: multiple IV medications needed Discharge planning: home Medications: Current Inpatient Medications Medications (Trade) Dose Ordered Sig/Jonas Route Start Time Stop Time Status Last Admin Dose Admin Al Hydrox/Mg Hydrox/Simethicone (Maalox Max Susp) 15 ml Q4H PRN PO 08/10/17 16:00 09/09/17 15:59 Magnesium Hydroxide (Milk Of Magnesia Susp) 30 ml Q12H PRN PO 08/10/17 16:00 09/09/17 15:59 Ondansetron HCl (Zofran Inj) 4 mg Q6H PRN IV 08/10/17 16:00 09/09/17 15:59 Nitroglycerin (Nitroglycerin 2% Oint) 1 inch Q6H EXT 7/5/18 22:00 09/09/17 21:59 08/12/17 04:05 1 INCH Aspirin (Ecotrin Tab) 81 mg QAM PO 08/11/17 09:00 09/10/17 08:59 08/12/17 08:54 81 MG Polyethylene (Miralax Powder Packet) 17 gm DAILY PRN PO 08/10/17 16:00 09/09/17 15:59 08/12/17 08:52 17 GM Tramadol HCl (Ultram Tab) 50 mg Q4H PRN PO 08/10/17 16:00 09/09/17 15:59 Amoxicillin (Amoxil Cap) 500 mg BID PO 08/10/17 21:00 08/13/17 21:00 08/12/17 08:53 500 MG Ascorbic Acid (Vitamin C Tab) 500 mg DAILY PO 08/11/17 09:00 09/10/17 08:59 08/12/17 08:53 500 MG Cetirizine HCl (zyrTEC TAB) 5 mg QPM PO 08/10/17 21:00 09/09/17 20:59 08/11/17 21:12 5 MG Cholecalciferol (Vitamin D Tab) 2,000 inter.unit QPM PO 08/10/17 21:00 09/09/17 20:59 08/11/17 21:12 2,000 INTER.UNIT Clopidogrel Bisulfate (plAVix TAB) 75 mg DAILY PO 08/11/17 09:00 09/10/17 08:59 08/12/17 08:52 75 MG Acetaminophen/ Hydrocodone Bitart ([place] 5/325 Tab) 1 tab HS PRN PO 08/10/17 16:00 08/24/17 15:59 Losartan Potassium (coZAAR TAB) 50 mg DAILY PO 08/11/17 09:00 09/10/17 08:59 08/12/17 08:52 50 MG Multivitamins (Multivitamin Tab) 1 tab DAILY PO 08/11/17 09:00 09/10/17 08:59 08/12/17 08:52 1 TAB Oxybutynin Chloride (Ditropan-Xl Tab) 5 mg DAILY PO 08/11/17 09:00 09/10/17 08:59 08/12/17 08:52 5 MG Ioversol (Optiray 320) 111 ml UD PRN IV 08/10/17 16:30 08/14/17 16:29 Atorvastatin Calcium (Lipitor Tab) 40 mg QAM PO 08/11/17 09:00 09/10/17 08:59 08/12/17 08:54 40 MG Metoprolol Tartrate (Lopressor Tab) 25 mg BID PO 08/10/17 21:00 09/09/17 20:59 08/12/17 08:53 25 MG Acetaminophen (Tylenol Tab) 650 mg Q4H PRN PO 08/11/17 15:00 09/10/17 14:59 08/12/17 08:52 650 MG Lab Results: 08/12/17 05:49 08/12/17 05:49 Test 08/11/17 14:16 08/12/17 05:49 Kaolin Activated Coagulation Time 246 SECONDS (94-140) Red Blood Count 3.77 M/uL (4.2-5.4) Mean Corpuscular Volume 91.0 fL (80-100) Mean Corpuscular Hemoglobin 30.8 pg (25-34) Mean Corpuscular Hemoglobin Concent 33.8 g/dl (32-36) RDW Standard Deviation 45.4 fL (36.4-46.3) RDW Coefficient of Variation 13.8 % (11.5-14.5) Mean Platelet Volume 9.6 fL (7.4-10.4) Activated Partial Thromboplast Time 26.4 SECONDS (21.0-31.0) Partial Thromboplastin Ratio 1.0 Anion Gap 6.0 mmol/L (3-11) Est Creatinine Clear Calc Drug Dose 54.7 ml/min Estimated GFR () 83.2 Estimated GFR (Non- 71.8 BUN/Creatinine Ratio 19.9 (10-20) Calcium Level 8.4 mg/dl (8.5-10.1) Total Bilirubin 0.4 mg/dl (0.2-1) Direct Bilirubin < 0.1 mg/dl (0-0.2) Aspartate Amino Transf (AST/SGOT) 73 U/L (15-37) Alanine Aminotransferase (ALT/SGPT) 29 U/L (12-78) Alkaline Phosphatase 85 U/L (45-117) Total Protein 6.2 gm/dl (6.4-8.2) Albumin 2.7 gm/dl (3.4-5.0)
--- NOTE | 2017-08-12 10:01 | Hospitalist Progress Note ---
Hospitalist Progress Note Date of Service Aug 12, 2017. Subjective Pt evaluation today including: conversation w/ patient, conversation w/ family ( and daughter at bedside), physical exam, chart review, lab review, conversation w/ revenue cycle consultant (spoke with Dr. Johnson), review of inpatient medication list Pain: Left leg sore, right arm at access site sore PO Intake: Tolerating PO diet, ate about 50% breakfast Voiding: no voiding problems Patient reports feeling very weak and fatigued. She complains of some aching pain at her right wrist access site. She also has some minimal chest discomfort. She denies any left arm pain. She states that her left leg is sore today, but not the same kind of pain that she had on admission. She is tolerating her diet but only ate about 50% of her breakfast. She states that her urinary incontinence has improved and is back to baseline. The patient denies fevers, chills, sweats, palpitations, claudication, cough, wheezing, shortness of breath, nausea, vomiting, abdominal pain, dysuria, hematuria, urinary retention, paralysis, weakness, numbness and tingling. Additional Comments: See HPI for pertinent positives and negatives. All other systems reviewed and negative. Objective Vital Signs Date Time Temp Pulse Resp B/P (MAP) Pulse Ox O2 Delivery O2 Flow Rate FiO2 08/12/17 07:54 37.5 80 16 124/76 (92) 91 Room Air 08/12/17 04:03 36.7 84 17 131/81 (98) 94 Room Air 08/11/17 23:44 37.2 80 18 115/75 (88) 92 Room Air 08/11/17 20:00 Room Air 08/11/17 19:25 37.1 89 20 143/83 (103) 96 Room Air 08/11/17 18:18 75 16 118/74 (89) 96 Room Air 08/11/17 17:15 82 16 114/72 (86) 95 Room Air 08/11/17 16:30 75 16 110/69 (83) 95 Room Air 08/11/17 16:15 75 16 112/59 (76) 95 Room Air 08/11/17 16:00 71 16 110/55 (73) 96 Room Air 08/11/17 15:45 36.8 72 16 110/70 (83) 96 Room Air 08/11/17 15:30 36.8 70 16 110/71 (84) 95 Room Air 08/11/17 15:13 36.8 66 16 127/78 (94) 95 Room Air 08/11/17 14:50 65 18 127/76 (93) 99 Room Air 08/11/17 14:40 65 18 138/86 (103) 99 Room Air 08/11/17 14:35 55 16 118/68 (85) 99 Room Air 08/11/17 11:50 36.9 64 16 124/74 (91) 93 Room Air Physical Exam Notes: General appearance: +Obese. Well-developed, well-nourished, no apparent distress Head: Normocephalic, atraumatic Eyes: Normal inspection, PERRL, EOMI ENT: Normal ENT inspection, hearing grossly normal, pharynx normal Neck: Supple, no JVD, trachea midline Respiratory/Chest: Lungs clear to auscultation, normal breath sounds, no respiratory distress Cardiovascular: Regular rate & rhythm, no gallop, no murmur Abdomen/GI: +Mild diffuse abdominal tenderness, denies pain w/o palpation. States this is baseline. Colostomy LLQ. Normal bowel sounds, soft Extremities/Musculoskeletal: +Right wrist access site TTP with hematoma. No calf tenderness, no pedal edema Neurological/Psych: +Right leg strength 4/5, residual from prior CVA. Alert, normal mood/affect, oriented x 3 Skin: Normal color, warm/dry, no rash Laboratory Results Last 24 Hours Test 08/11/17 13:45 08/11/17 14:16 08/11/17 15:57 08/12/17 05:49 Kaolin Activated Coagulation Time 241 SECONDS 246 SECONDS Activated Partial Thromboplast Time 239.0 SECONDS 26.4 SECONDS Partial Thromboplastin Ratio 9.0 1.0 White Blood Count 10.37 K/uL Red Blood Count 3.77 M/uL Hemoglobin 11.6 g/dL Hematocrit 34.3 % Mean Corpuscular Volume 91.0 fL Mean Corpuscular Hemoglobin 30.8 pg Mean Corpuscular Hemoglobin Concent 33.8 g/dl RDW Standard Deviation 45.4 fL RDW Coefficient of Variation 13.8 % Platelet Count 339 K/uL Mean Platelet Volume 9.6 fL Sodium Level 139 mmol/L Potassium Level 4.0 mmol/L Chloride Level 106 mmol/L Carbon Dioxide Level 26 mmol/L Anion Gap 6.0 mmol/L Blood Urea Nitrogen 16 mg/dl Creatinine 0.78 mg/dl Est Creatinine Clear Calc Drug Dose 54.7 ml/min Estimated GFR () 83.2 Estimated GFR (Non- 71.8 BUN/Creatinine Ratio 19.9 Random Glucose 106 mg/dl Calcium Level 8.4 mg/dl Total Bilirubin 0.4 mg/dl Direct Bilirubin < 0.1 mg/dl Aspartate Amino Transf (AST/SGOT) 73 U/L Alanine Aminotransferase (ALT/SGPT) 29 U/L Alkaline Phosphatase 85 U/L Total Protein 6.2 gm/dl Albumin 2.7 gm/dl Diagnostic Results Procedure Note Procedure Date Aug 11, 2017. Pre-Procedure Diagnosis Non STEMI AUC Score 8 Post-Procedure Diagnosis Severe CAD, Successful PCI Procedure(s) Performed Drug Eluting Stent, IVUS Float Operator Alex Pre Algebra Teacher(s) Britton Estimated Blood Loss 15 Medication(s) Fentanyl, Heparin, Nicardipine, Nitroglycerin, Versed, Lidocaine 1% Summary of Findings Indication: Staged PCI of Circumflex Access: 6Fr right radial artery Catheters: EBU 3.5 guide -- PCI -- Antithrombotic therapy: Heparin, Clopidogrel Procedure: LM cannulated with EBU 3.5 guide Child Development Professor 50 wire passed across lesion into distal vessel Prowater wire placed into large OM2 Mid circumflex lesion predilated with 3.0 compliant balloon Dilated lesion stented with 4.5 x 18 [place] JOHN Stent post-dilated with 4.5 noncompliant balloon Wires removed and whisper wire placed down LAD IVUS used to assess previously placed mid LAD stent and haziness just proximal to stent IVUS showed underexpanded proximal aspect of stent with moderate to severe, calcified disease in the early-mid segment. Proximal to mid segments pre-dilated with 2.5 balloon. Proximal to mid 3.0 x 18 [place] JOHN placed Stent post-dilated with 3.0 NC balloon to high atmospheres. IC vasodilators administered for spasm IVUS revealed well expanded stent and apparent proximal vessel complications. Post procedure AJ 3 flow, stent well expanded with minimal residual stenosis and no apparent cardiac complications. Arterial Closure: TR Band (hematoma noted proximal to TR Band - 2nd band placed) . Summary: 1. Successful PCI of mid circumflex with single JOHN (4.5 x 18 [place]). 2. Successful PCI of proximal to mid LAD with single JOHN (3.0 x 18 [place]) overlapping with proximal aspect of prior stent placed yesterday. Recommendations: To PCU for continued monitoring Continue dual-antiplatelet therapy for at least 1 year Continue statin, and ASCVD risk factor modification Consult cardiac Rehab Assessment and Plan 82 y/o female with a history of HTN, HLD, CVA about 5 months ago, CKD stage III , neuropathy, h/o breast cancer, partial colectomy, and GERD who presented to the ED on 08/10 with chest pain and left arm pain. Pt afebrile, VSS. Head CT negative for acute disease. KUB negative. EKGs in ED without acute ischemic changes. Troponin was initially 0.034, but patient then complained of chest pain, ongoing left arm pain. Repeat troponin 1.37. NSTEMI--resolving -Admit to telemetry. No acute events overnight. Patient in sinus rhythm with HR in 70s. -Cardiology consulted, appreciate recs: Spoke with Dr. Johnson. Can d/c nitropaste. Patient doing well from cardiac standpoint. Continue DAPT, ARB, beta aiden, and statin. OK to discharge from cardiac standpoint. -Cardiac cath 08/10 showed severe multivessel CAD, most notably mid LAD with 90-95 % stenosis, mid circumflex 90%. Successful PCI of mid LAD and 1 JOHN placed -Repeat cardiac cath 08/11, 2nd stent placed in proximal to mid LAD overlapping w/ 1st stent, one stent placed in circumflex -Heparin drip d/c'd -Troponin peaked at 17.9, now trending down -Echocardiogram shows EF 55-60%. Apical akinesis, new from previous study. Mild mitral regurgitation. No thrombus seen. -D/C nitropaste -Continue Lipitor 40 mg PO qd, monitor LFTs. Continue ASA -Continue Lopressor 25 mg PO BID per cardio -Lipid panel shows triglycerides 214, total cholesterol 163, non HDL 138 -Access site hematoma, apply ice and elevate HTN, HLD, h/o CVA w/residual right sided weakness--stable -Continue Plavix, losartan 50 mg PO qd, Zetia 10 mg PO qd -Lopressor, Lipitor and ASA as above -Monitor LFTs while on statin, currently stable Left leg pain--persistent from admission -Venous Doppler LLE to r/o DVT CKD stage III--stable Urinary incontinence--resolved, back to baseline -UA negative -Continue oxybutynin 5 mg PO qd H/o breast cancer s/p lumpectomy and radiation--noted H/o diverticulitis s/p partial colectomy--noted DVT prophylaxis -Heparin d/c'd, will hold off chemical ppx for now given hematoma -[facility] [place] Code Status -Level I, FULL RESUSCITATION STATUS -No prolonged measures Dispo -From home -PT/OT evaluate and treat, will likely benefit from rehab
--- NOTE | 2017-08-12 11:12 | DIAGNOSTIC IMAGING REPORT ---
ULTRASOUND LEFT LOWER EXTREMITY VENOUS CLINICAL HISTORY: Left leg pain. COMPARISON STUDY: Bilateral lower extremity venous Doppler dated 08/13/2010. TECHNIQUE: Real-time, grayscale, and color Doppler sonography of the deep veins of the left lower extremity was performed from the inguinal crease to the calf. Compression and augmentation were utilized. FINDINGS: There is no sonographic evidence of deep venous thrombosis identified in the left lower extremity. The common femoral, superficial femoral, and popliteal veins are patent and normally compressible. The greater saphenous vein and the profunda femoris vein at the junction with the common femoral vein are clear. The visualized calf veins are patent. IMPRESSION: There is no sonographic evidence of deep venous thrombosis identified in the left lower extremity. Electronically signed by: Valdemar Guido M.D. 08/12/2017 11:11 AM Dictated Date/Time: 08/12/2017 11:10 AM
[2017-08-12] MEDS: TRAMADOL HCL 50 MG TAB PO PRN (18:48)
[2017-08-12] MEDS: CETIRIZINE HCL 10 MG TAB PO SCH (20:45)
[2017-08-12] MEDS: CHOLECALCIFEROL 1000 INTER.UNIT TAB PO SCH (20:47)
[2017-08-13] VITALS (7 sets, daily range): BP systolic 92–147; BP diastolic 60–85; PULSE 65–81; TEMP 36.7–37.3; O2SAT 92–94
[2017-08-13 07:04] LABS: HEMATOCRIT 37.1 % (37-47); HEMOGLOBIN 12.1 g/dL (12.0-16.0); MEAN CELL VOLUME 91.4 fL (80-100); MEAN CORPUSCULAR HEMOGLOBIN 29.8 pg (25-34); MEAN CORPUSCULAR HGB CONC 32.6 g/dl (32-36); MEAN PLATELET VOLUME 9.6 fL (7.4-10.4); PLATELET COUNT 342 K/uL (130-400); RED CELL DISTRIBUTION WIDTH CV 13.7 % (11.5-14.5); RED CELL DISTRIBUTION WIDTH SD 45.5 fL (36.4-46.3); WHITE BLOOD COUNT 11.83 K/uL (4.8-10.8)
--- NOTE | 2017-08-13 07:04 | Cardiology Follow-Up ---
Subjective Subjective Date of Service: Aug 13, 2017. Pt evaluation today including: conversation w/ patient, physical exam, chart review, lab review, review of studies, review of inpatient medication list Additional Details: Increasing right radial artery access site hematoma yesterday evening requiring compression/re-placement of TR bands. Modest arm pain this morning. Wrist immobilized. Denies chest pain. Shortness of breath. Problem List Medical Problems: (1) Abnormal EKG Status: Acute (2) Bilateral arm pain Status: Acute (3) Chest pain Status: Acute (4) Dehydration Status: Acute (5) Diarrhea Status: Acute (6) Diarrhea Status: Acute (7) GI bleed Status: Acute (8) Headache Status: Acute (9) Hypertension Status: Acute (10) NSTEMI (non-ST elevated myocardial infarction) Status: Acute (11) Sinusitis Status: Acute (12) Upper abdominal pain Status: Acute Review of Systems Constitutional: No fever, No chills, No sweats, No weight loss, No weakness, No fatigue, No problem reported Eyes: No worsening of vision, No eye pain, No redness, No discharge, No diplopia ENT: No hearing loss, No unusual epistaxis, No nasal symptoms, No sore throat, No tinnitus, No dental problems, No trouble swallowing Respiratory: No cough, No sputum, No wheezing, No shortness of breath, No dyspnea on exertion, No dyspnea at rest, No hemoptysis Cardiac: No chest pain, No orthopnea, No PND, No edema, No claudication, No palpitations Abdomen: No pain, No nausea, No vomiting, No diarrhea, No constipation Musculoskeletal: No joint pain, No muscle pain, No swelling, No calf pain Female : No dysuria, No urinary frequency, No hematuria, No incontinence, No abnormal vaginal bleeding, No vaginal discharge Neurologic: No memory loss, No paralysis, No weakness, No numbness/tingling, No vertigo, No balance problems Psychiatric: No depression symptoms, No anhedonism, No anxiety, No insomnia, No substance abuse Heme: No abnormal bleeding/bruising, No clotting problems, No swollen lymph nodes, No night sweats Endo: No fatigue, No excessive thirst, No excessive urination Skin: No rash, No itch, No new/changing skin lesions, No color change, No bleeding Objective Vital Signs Last Vital Signs Documentation Date Time Temp Pulse Resp B/P (MAP) Pulse Ox O2 Delivery O2 Flow Rate FiO2 08/13/17 04:01 37.0 72 18 116/75 (89) 93 Room Air Physical Exam: General Appearance: no apparent distress ENT: hearing grossly normal, pharynx normal Neck: supple, no JVD Respiratory/Chest: chest non-tender, normal breath sounds, no respiratory distress Cardiovascular: regular rate, rhythm, no edema, no murmur Abdomen: non tender, soft Extremities: no pedal edema, no calf tenderness, + pertinent finding (large hematoma at right radial artery access site extending back to mid forearm. Hand is swollen but distal radial and ulnar pulses are intact. Sensation intact ) Neurologic/Psychiatric: alert, normal mood/affect Skin: normal color, warm/dry Lymphatic: no adenopathy Assessment and Plan 1. NSTEMI -- post PCI with DESx2 to proximal to mid LAD 2. Severe non-culprit CAD -- post PCI with JOHN to mid circumflex. 3. Preserved overall LV function with apical akinesis. 4. Right radial artery access site hematoma 5. Anemia 6. Hypertension 7. Dyslipidemia Remains chest pain free. Hemodynamically and electrically stable. No signs of heart failure. Dizziness resolved Repeat labs pending. Large right radial artery access site -- increased yesterday afternoon, stable post extended compression. No apparent neurovascular distal complications. -- Continue current DAPT with ASA/Plavix -- Continue current ARB/beta-aiden -- Continue re-trial of statin (previously intolerant) -- Continue with wrist immobilization for next 24hrs, afterwards avoid flexing wrist, pushing off with right hand or lifting anything heavier than 10lbs. Follow-up with cardiology next week to assess hematoma -- From a cardiac standpoint OK for discharge when OK from a medical, PT/OT standpoint. Continued [facility] stay due to: multiple IV medications needed Discharge planning: home Medications: Current Inpatient Medications Medications (Trade) Dose Ordered Sig/Jonas Route Start Time Stop Time Status Last Admin Dose Admin Al Hydrox/Mg Hydrox/Simethicone (Maalox Max Susp) 15 ml Q4H PRN PO 08/10/17 16:00 09/09/17 15:59 Magnesium Hydroxide (Milk Of Magnesia Susp) 30 ml Q12H PRN PO 08/10/17 16:00 09/09/17 15:59 Ondansetron HCl (Zofran Inj) 4 mg Q6H PRN IV 08/10/17 16:00 09/09/17 15:59 Aspirin (Ecotrin Tab) 81 mg QAM PO 08/11/17 09:00 09/10/17 08:59 08/12/17 08:54 81 MG Polyethylene (Miralax Powder Packet) 17 gm DAILY PRN PO 08/10/17 16:00 09/09/17 15:59 08/12/17 08:52 17 GM Tramadol HCl (Ultram Tab) 50 mg Q4H PRN PO 08/10/17 16:00 09/09/17 15:59 08/12/17 18:48 50 MG Amoxicillin (Amoxil Cap) 500 mg BID PO 08/10/17 21:00 08/13/17 21:00 08/12/17 20:46 500 MG Ascorbic Acid (Vitamin C Tab) 500 mg DAILY PO 08/11/17 09:00 09/10/17 08:59 08/12/17 08:53 500 MG Cetirizine HCl (zyrTEC TAB) 5 mg QPM PO 08/10/17 21:00 09/09/17 20:59 08/12/17 20:45 5 MG Cholecalciferol (Vitamin D Tab) 2,000 inter.unit QPM PO 08/10/17 21:00 09/09/17 20:59 08/12/17 20:47 2,000 INTER.UNIT Clopidogrel Bisulfate (plAVix TAB) 75 mg DAILY PO 08/11/17 09:00 09/10/17 08:59 08/12/17 08:52 75 MG Acetaminophen/ Hydrocodone Bitart ([place] 5/325 Tab) 1 tab HS PRN PO 08/10/17 16:00 08/24/17 15:59 Losartan Potassium (coZAAR TAB) 50 mg DAILY PO 08/11/17 09:00 09/10/17 08:59 08/12/17 08:52 50 MG Multivitamins (Multivitamin Tab) 1 tab DAILY PO 08/11/17 09:00 09/10/17 08:59 08/12/17 08:52 1 TAB Oxybutynin Chloride (Ditropan-Xl Tab) 5 mg DAILY PO 08/11/17 09:00 09/10/17 08:59 08/12/17 08:52 5 MG Ioversol (Optiray 320) 111 ml UD PRN IV 08/10/17 16:30 08/14/17 16:29 Atorvastatin Calcium (Lipitor Tab) 40 mg QAM PO 08/11/17 09:00 09/10/17 08:59 08/12/17 08:54 40 MG Metoprolol Tartrate (Lopressor Tab) 25 mg BID PO 08/10/17 21:00 09/09/17 20:59 08/12/17 20:46 25 MG Acetaminophen (Tylenol Tab) 650 mg Q4H PRN PO 08/11/17 15:00 09/10/17 14:59 08/12/17 08:52 650 MG Lab Results: Test 08/13/17 06:41
[2017-08-13 07:13] LABS: PTT PATIENT 27.1 SECONDS (21.0-31.0)
[2017-08-13 07:34] LABS: ALBUMIN 2.8 gm/dl (3.4-5.0); CALCIUM 8.4 mg/dl (8.5-10.1); CREATININE 0.79 mg/dl (0.60-1.20); POTASSIUM 3.9 mmol/L (3.5-5.1); TOTAL PROTEIN 6.6 gm/dl (6.4-8.2)
[2017-08-13] MEDS: OXYBUTYNIN CHLORIDE 5 MG TABCR PO SCH (08:27)
[2017-08-13] MEDS: CLOPIDOGREL BISULFATE 75 MG TAB PO SCH (08:27)
[2017-08-13] MEDS: MULTIVITAMIN TAB PO SCH (08:27)
[2017-08-13] MEDS: LOSARTAN POTASSIUM 50 MG TAB PO SCH (08:27)
[2017-08-13] MEDS: POLYETHYLENE (MIRALAX) 17 GM PACK PO PRN (08:27)
[2017-08-13] MEDS: METOPROLOL TARTRATE 25 MG TAB PO SCH ×2 (08:28→21:38)
[2017-08-13] MEDS: AMOXICILLIN 500 MG CAP PO SCH ×2 (08:28→21:38)
[2017-08-13] MEDS: ASPIRIN 81 MG ECTAB PO SCH (08:28)
[2017-08-13] MEDS: ATORVASTATIN 40 MG TAB PO SCH (08:28)
[2017-08-13] MEDS: ASCORBIC ACID 500 MG TAB PO SCH (08:28)
[2017-08-13] MEDS: TRAMADOL HCL 50 MG TAB PO PRN (13:17)
--- NOTE | 2017-08-13 15:36 | Hospitalist Progress Note ---
Hospitalist Progress Note Date of Service Aug 13, 2017. Subjective Pt evaluation today including: conversation w/ patient, conversation w/ family ( at bedside), physical exam, chart review, lab review, review of inpatient medication list Patient's right radial access hematoma worsened last night requiring manual compression. Hematoma continued to worsen and eventually TR band was put back on. Per nursing the hematoma is now remaining stable and does not appear to be getting worse anymore. The patient does complain of soreness around her right wrist. She denies any chest pain or left arm pain. The pain in her left leg is intermittent but she denies any currently. The patient denies fevers, chills , sweats, chest pain, palpitations, claudication, cough, wheezing, shortness of breath, nausea, vomiting, abdominal pain, dysuria, hematuria, urinary retention , paralysis, weakness, numbness and tingling. Additional Comments: See HPI for pertinent positives and negatives. All other systems reviewed and negative. Objective Vital Signs Date Time Temp Pulse Resp B/P (MAP) Pulse Ox O2 Delivery O2 Flow Rate FiO2 08/13/17 12:22 37.1 66 16 130/74 (92) 94 Room Air 08/13/17 08:00 Room Air 08/13/17 06:58 36.8 72 18 128/73 (91) 92 Room Air 08/13/17 04:01 37.0 72 18 116/75 (89) 93 Room Air 08/12/17 23:26 36.7 68 18 122/79 (93) 93 Room Air 08/12/17 20:00 94 Room Air 08/12/17 19:15 36.6 81 18 123/75 (91) 94 Room Air 08/12/17 16:38 36.5 69 18 137/82 (100) 95 Room Air 08/12/17 15:47 80 91 Physical Exam Notes: General appearance: +Obese. Well-developed, well-nourished, no apparent distress Head: Normocephalic, atraumatic Eyes: Normal inspection, PERRL, EOMI ENT: Normal ENT inspection, hearing grossly normal, pharynx normal Neck: Supple, no JVD, trachea midline Respiratory/Chest: Lungs clear to auscultation, normal breath sounds, no respiratory distress Cardiovascular: Regular rate & rhythm, no gallop, no murmur Abdomen/GI: +Colostomy LLQ. Normal bowel sounds, soft Extremities/Musculoskeletal: +Right wrist access site TTP with hematoma. Hematoma larger today than yesterday. No calf tenderness, no pedal edema Neurological/Psych: +Right leg strength 4/5, residual from prior CVA. Alert, normal mood/affect, oriented x 3 Skin: Normal color, warm/dry, no rash Laboratory Results Last 24 Hours Test 08/13/17 06:41 White Blood Count 11.83 K/uL Red Blood Count 4.06 M/uL Hemoglobin 12.1 g/dL Hematocrit 37.1 % Mean Corpuscular Volume 91.4 fL Mean Corpuscular Hemoglobin 29.8 pg Mean Corpuscular Hemoglobin Concent 32.6 g/dl RDW Standard Deviation 45.5 fL RDW Coefficient of Variation 13.7 % Platelet Count 342 K/uL Mean Platelet Volume 9.6 fL Activated Partial Thromboplast Time 27.1 SECONDS Partial Thromboplastin Ratio 1.0 Sodium Level 136 mmol/L Potassium Level 3.9 mmol/L Chloride Level 104 mmol/L Carbon Dioxide Level 26 mmol/L Anion Gap 7.0 mmol/L Blood Urea Nitrogen 16 mg/dl Creatinine 0.79 mg/dl Est Creatinine Clear Calc Drug Dose 54.1 ml/min Estimated GFR () 81.9 Estimated GFR (Non- 70.7 BUN/Creatinine Ratio 20.3 Random Glucose 108 mg/dl Calcium Level 8.4 mg/dl Total Bilirubin 0.5 mg/dl Direct Bilirubin 0.1 mg/dl Aspartate Amino Transf (AST/SGOT) 59 U/L Alanine Aminotransferase (ALT/SGPT) 28 U/L Alkaline Phosphatase 89 U/L Total Protein 6.6 gm/dl Albumin 2.8 gm/dl Diagnostic Results Reviewed the following studies and agree with interpretation as follows: ULTRASOUND LEFT LOWER EXTREMITY VENOUS CLINICAL HISTORY: Left leg pain. COMPARISON STUDY: Bilateral lower extremity venous Doppler dated 08/13/2010. TECHNIQUE: Real-time, grayscale, and color Doppler sonography of the deep veins of the left lower extremity was performed from the inguinal crease to the calf. Compression and augmentation were utilized. FINDINGS: There is no sonographic evidence of deep venous thrombosis identified in the left lower extremity. The common femoral, superficial femoral, and popliteal veins are patent and normally compressible. The greater saphenous vein and the profunda femoris vein at the junction with the common femoral vein are clear. The visualized calf veins are patent. IMPRESSION: There is no sonographic evidence of deep venous thrombosis identified in the left lower extremity. Assessment and Plan 82 y/o female with a history of HTN, HLD, CVA about 5 months ago, CKD stage III , neuropathy, h/o breast cancer, partial colectomy, and GERD who presented to the ED on 08/10 with chest pain and left arm pain. Pt afebrile, VSS. Head CT negative for acute disease. KUB negative. EKGs in ED without acute ischemic changes. Troponin was initially 0.034, but patient then complained of chest pain, ongoing left arm pain. Repeat troponin 1.37. NSTEMI--resolving -Admit to telemetry. No acute events overnight. Patient in sinus rhythm with HR in 70s-90s. -Cardiology consulted, appreciate recs: Continue wrist immobilization for next 24 hours, then avoid flexing of the wrist or pushing off from right hand. No lifting over 10 pounds. F/u with cardiology in 1 week. -Cardiac cath 08/10 showed severe multivessel CAD, most notably mid LAD with 90-95 % stenosis, mid circumflex 90%. Successful PCI of mid LAD and 1 JOHN placed -Repeat cardiac cath 08/11, 2nd stent placed in proximal to mid LAD overlapping w/ 1st stent, one stent placed in circumflex -Heparin drip d/c'd -Troponin peaked at 17.9, now trending down -Echocardiogram shows EF 55-60%. Apical akinesis, new from previous study. Mild mitral regurgitation. No thrombus seen. -D/C nitropaste -Continue Lipitor 40 mg PO qd, monitor LFTs. Continue ASA -Continue Lopressor 25 mg PO BID per cardio -Lipid panel shows triglycerides 214, total cholesterol 163, non HDL 138 -Access site hematoma worse. Wrist immobilization x 24 hours, then avoid flexing/pushing off and lifting >10 pounds. Elevated and ice HTN, HLD, h/o CVA w/residual right sided weakness--stable -Continue Plavix, losartan 50 mg PO qd, Zetia 10 mg PO qd -Lopressor, Lipitor and ASA as above -Monitor LFTs while on statin, currently stable Left leg pain--persistent from admission -Venous Doppler LLE negative for DVT CKD stage III--stable Urinary incontinence--resolved, back to baseline -UA negative -Continue oxybutynin 5 mg PO qd H/o breast cancer s/p lumpectomy and radiation--noted H/o diverticulitis s/p partial colectomy--noted DVT prophylaxis -Heparin d/c'd, will hold off chemical ppx for now given worsening hematoma -RANDA baker and [facility] Code Status -Level I, FULL RESUSCITATION STATUS -No prolonged measures Dispo -From home -PT recommends inpatient rehab. OT eval pending -Referral to [facility], awaiting acceptance
[2017-08-13] MEDS: CHOLECALCIFEROL 1000 INTER.UNIT TAB PO SCH (21:38)
[2017-08-13] MEDS: CETIRIZINE HCL 10 MG TAB PO SCH (21:38)
[2017-08-14 03:55] VITALS: BP 130/81; PULSE 86; TEMP 36.6; O2SAT 92
[2017-08-14 07:10] VITALS: BP 121/76; PULSE 86; TEMP 36.7; O2SAT 93
[2017-08-14 07:39] LABS: PTT PATIENT 29.6 SECONDS (21.0-31.0)
[2017-08-14 08:24] LABS: ALBUMIN 2.8 gm/dl (3.4-5.0); TOTAL PROTEIN 6.9 gm/dl (6.4-8.2)
[2017-08-14] MEDS: ASPIRIN 81 MG ECTAB PO SCH (08:36)
[2017-08-14] MEDS: LOSARTAN POTASSIUM 50 MG TAB PO SCH (08:36)
[2017-08-14] MEDS: ATORVASTATIN 40 MG TAB PO SCH (08:36)
[2017-08-14] MEDS: MULTIVITAMIN TAB PO SCH (08:36)
[2017-08-14] MEDS: METOPROLOL TARTRATE 25 MG TAB PO SCH ×2 (08:36→21:06)
[2017-08-14] MEDS: OXYBUTYNIN CHLORIDE 5 MG TABCR PO SCH (08:36)
[2017-08-14] MEDS: CLOPIDOGREL BISULFATE 75 MG TAB PO SCH (08:36)
[2017-08-14] MEDS: ASCORBIC ACID 500 MG TAB PO SCH (08:37)
--- NOTE | 2017-08-14 09:18 | Progress Note ---
Subjective Date of Service: Aug 14, 2017. Subjective this pt feels weak and tired, she has had no colostomy output but has a benign examining abdomen other than an easily reduceable ventral hernia. she has a tender right wrist at the access site. this was discussed with cardiology and an ultrasound was ordered Problem List Medical Problems: (1) Abnormal EKG Status: Acute (2) Bilateral arm pain Status: Acute (3) Chest pain Status: Acute (4) Dehydration Status: Acute (5) Diarrhea Status: Acute (6) Diarrhea Status: Acute (7) GI bleed Status: Acute (8) Headache Status: Acute (9) Hypertension Status: Acute (10) NSTEMI (non-ST elevated myocardial infarction) Status: Acute (11) Sinusitis Status: Acute (12) Upper abdominal pain Status: Acute Review of Systems Constitutional: + weakness, + fatigue, No fever, No chills Cardiac: + edema, No chest pain Abdomen: No pain, No nausea, No vomiting, No diarrhea Musculoskeletal: + joint pain, + muscle pain, + swelling Neurologic: No memory loss, No weakness Psychiatric: + depression symptoms, + anhedonism Objective Vital Signs Date Time Temp Pulse Resp B/P (MAP) Pulse Ox O2 Delivery O2 Flow Rate FiO2 08/14/17 07:10 36.7 86 17 121/76 (91) 93 Room Air 08/14/17 03:55 36.6 86 18 130/81 (97) 92 Room Air 08/13/17 23:43 36.7 65 17 92/60 (71) 94 Room Air 08/13/17 20:00 94 Room Air 08/13/17 19:42 37.3 81 18 147/85 (105) 94 Room Air 08/13/17 15:30 36.8 76 18 126/76 (93) 94 Room Air 08/13/17 12:22 37.1 66 16 130/74 (92) 94 Room Air Physical Exam General Appearance: WD/WN, + mild distress Eyes: normal inspection, sclerae normal Respiratory/Chest: chest non-tender, lungs clear, normal breath sounds Cardiovascular: regular rate, rhythm, no murmur Abdomen: normal bowel sounds, non tender, soft Extremities: no pedal edema, no calf tenderness, + swelling, + pertinent finding (tenderness to right wrist, large pulsatile area and maybe a thrill) Neurologic/Psychiatric: alert, oriented x 3 Laboratory Results Last 24 Hours Test 08/14/17 06:54 Activated Partial Thromboplast Time 29.6 SECONDS Partial Thromboplastin Ratio 1.1 Total Bilirubin 0.8 mg/dl Direct Bilirubin 0.2 mg/dl Aspartate Amino Transf (AST/SGOT) 50 U/L Alanine Aminotransferase (ALT/SGPT) 32 U/L Alkaline Phosphatase 96 U/L Total Protein 6.9 gm/dl Albumin 2.8 gm/dl Assessment and Plan 82 F presented with unstable angina and NSTEMI, with a history of HTN, HLD, CVA about 5 months ago, CKD stage III, neuropathy, h/o breast cancer, partial colectomy, and GERD NSTEMI--resolving-Cardiology consulted, s/p cardiac cath 08/10 showed severe multivessel CAD, most notably mid LAD with 90-95% stenosis, mid circumflex 90%. Successful PCI of mid LAD and 1 JOHN placed -Repeat cardiac cath 08/11, 2nd stent placed in proximal to mid LAD overlapping w/ 1st stent, one stent placed in circumflex -Echocardiogram shows EF 55-60%. Apical akinesis, new from previous study. Mild mitral regurgitation. No thrombus seen. -Continue Lipitor 40 mg PO qd, Continue ASA Lopressor 25 mg PO BID per cardio -Right Wrist has a pseudoaneurysm, will ask vascular surgery to comment, until then monitor for neurovascular comprise HTN, HLD, h/o CVA w/residual right sided weakness--stable, Plavix, losartan 50 mg PO qd, Zetia 10 mg PO qd -Lopressor, Lipitor and ASA as above Left leg pain--persistent from admission -Venous Doppler LLE negative for DVT CKD stage III--stable Urinary incontinence--UA negative, oxybutynin 5 mg PO qd H/o breast cancer s/p lumpectomy and radiation-- H/o diverticulitis s/p partial colectomy-- DVT prophylaxis -Heparin d/c'd, will hold off chemical ppx for now given worsening hematoma -RANDA baker and SCDs Code Status -Level I, FULL RESUSCITATION STATUS -No prolonged measures Dispo-PT recommends inpatient rehab. OT eval pending -Referral to [facility], awaiting acceptance Continued [facility] stay due to: multiple IV medications needed Discharge planning: home
--- NOTE | 2017-08-14 09:45 | CARDIOLOGY PROGRESS NOTE ---
DATE: 08/14/2017 SUBJECTIVE: Mrs. Grace is resting comfortably in bedside chair without complaints of chest pain or dyspnea. Does complain of right wrist discomfort. OBJECTIVE: VITAL SIGNS: Blood pressure 120/76 with a regular pulse of 86. Respiratory rate is 18. The patient is afebrile at 36.7 degrees Celsius. Saturation is 92% on room air. NECK: Supple with full carotid upstrokes. No carotid bruits. Jugular venous pressure is flat at 90 degrees. There is no thyromegaly. CARDIOVASCULAR: Reveals a regular rhythm with normal S1, S2. No S3, S4, or murmurs are noted. Heart sounds are distant. LUNGS: Clear without rales, rhonchi, or wheezes. ABDOMEN: Soft, nontender without bruits. EXTREMITIES: Reveal a large hematoma and ecchymosis across the right wrist. No peripheral edema. DATA: Electrolytes note sodium of 136, potassium 3.9, chloride 104, bicarbonate 26, BUN 16, creatinine 0.79, glucose 108. monitoring analyst is benign. IMPRESSION AND PLAN: 1. Non-ST elevation myocardial infarction - patient had a drug-eluting stent placed in the mid left anterior descending by Dr. Johnson last week. Continue medical management. 2. Status post LCX stent - performed as a staged procedure. 3. Right wrist hematoma - stable. 4. Hypertension - controlled. 5. History of cerebrovascular accident. 6. Hypercholesterolemia. 7. Breast carcinoma - status post lumpectomy and XRT in 2006. 8. Hereditary spherocytosis.
[2017-08-14] MEDS: ACETAMINOPHEN 325 MG TAB PO PRN ×2 (10:20→16:14)
[2017-08-14] MEDS: POLYETHYLENE (MIRALAX) 17 GM PACK PO PRN (10:20)
[2017-08-14 11:39] VITALS: BP 129/79; PULSE 72; TEMP 36.9; O2SAT 94
[2017-08-14 15:31] VITALS: BP 116/74; PULSE 74; TEMP 36.7; O2SAT 95
[2017-08-14] MEDS ORDERED: SENNA 8.6 MG TAB PO ONE (17:00)
--- NOTE | 2017-08-14 18:18 | DIAGNOSTIC IMAGING REPORT ---
R ART DOP DUP UPPER EXT UNI HISTORY: 82 years-old Female eval pseudoaneurysm pseudoaneurysm of the right upper extremity with recent radial artery catheterization procedure 08/11/2017 COMPARISON: None available TECHNIQUE: Multiple real-time sonographic images of the right upper extremity arterial structures were obtained assessing grayscale appearance, color and spectral flow FINDINGS: There is a hypoechoic ovoid collection with increased through transmission communicating with the distal aspect of the right radial artery which demonstrates internal turbulent to and fro vascularity overall measuring 3.8 x 1.5 x 3.5 cm. No significant internal thrombosis of the pseudoaneurysm identified. The proximal and mid portions of the right radial artery appear normal with triphasic waveforms. The distal right radial artery also appears patent. IMPRESSION: 3.8 cm pseudoaneurysm of the distal right radial artery. The above report was generated using voice recognition software. It may contain grammatical, syntax or spelling errors. Electronically signed by: Curtis Olivarez M.D. 08/14/2017 6:16 PM Dictated Date/Time: 08/14/2017 6:12 PM
[2017-08-14 20:00] VITALS: O2SAT 95
[2017-08-14] MEDS: POLYETHYLENE (MIRALAX) 17 GM PACK PO SCH (21:00)
[2017-08-14] MEDS: CETIRIZINE HCL 10 MG TAB PO SCH (21:06)
[2017-08-14] MEDS: CHOLECALCIFEROL 1000 INTER.UNIT TAB PO SCH (21:06)
[2017-08-14 23:18] VITALS: BP 146/76; PULSE 78; TEMP 37.2; O2SAT 94
[2017-08-15 05:55] LABS: PTT PATIENT 30.1 SECONDS (21.0-31.0)
[2017-08-15 07:39] VITALS: BP 142/82; PULSE 92; TEMP 36.7; O2SAT 94
[2017-08-15] MEDS: ACETAMINOPHEN 325 MG TAB PO PRN ×3 (08:36→19:51)
[2017-08-15] MEDS: LOSARTAN POTASSIUM 50 MG TAB PO SCH (09:50)
[2017-08-15] MEDS: OXYBUTYNIN CHLORIDE 5 MG TABCR PO SCH (09:50)
[2017-08-15] MEDS: METOPROLOL TARTRATE 25 MG TAB PO SCH ×2 (09:50→19:42)
[2017-08-15] MEDS: CLOPIDOGREL BISULFATE 75 MG TAB PO SCH ×2 (09:50→16:01)
[2017-08-15] MEDS: ATORVASTATIN 40 MG TAB PO SCH (09:50)
[2017-08-15] MEDS: MULTIVITAMIN TAB PO SCH (09:50)
[2017-08-15] MEDS: ASCORBIC ACID 500 MG TAB PO SCH (09:51)
[2017-08-15] MEDS: POLYETHYLENE (MIRALAX) 17 GM PACK PO SCH ×3 (09:51→19:44)
[2017-08-15] MEDS: ASPIRIN 81 MG ECTAB PO SCH (09:51)
[2017-08-15 09:53] VITALS: BP 122/74; PULSE 83
--- NOTE | 2017-08-15 10:40 | CARDIOLOGY PROGRESS NOTE ---
DATE: 08/15/2017 CARDIOLOGY PROGRESS NOTE SUBJECTIVE: Mrs. Grace is resting comfortably in bed without complaints of chest pain or dyspnea. OBJECTIVE: VITAL SIGNS: Blood pressure is 140/82 with a regular pulse of 80. Respiratory rate is 16. Patient is afebrile at 36.7 degrees Celsius. Saturation is 94% on room air. NECK: Supple with full carotid upstrokes. There are no carotid bruits. Jugular venous pressure is flat at 90 degrees. There is no thyromegaly. CARDIOVASCULAR: Reveals a regular rhythm with a normal S1 and S2. No S3, S4, or murmurs are noted. LUNGS: Clear without rales, rhonchi, or wheezes. ABDOMEN: Soft and nontender without bruits. EXTREMITIES: Note the right wrist to be splinted. Large ecchymotic region noted. DATA: Electrolytes note a sodium of 136, potassium 3.9, chloride 104, bicarbonate 26, BUN 16, creatinine 0.79, glucose 108. manager monitoring notes sinus rhythm with occasional PACs. IMPRESSION AND PLAN: 1. Non-ST elevation myocardial infarction -- patient had a drug-eluting stent placed in the mid left anterior descending last week with the staged procedure placing a stent in the left circumflex on the following day. Stable on current medications. 2. Right radial artery pseudoaneurysm -- consult pending with Dr. iVllela's team. 3. Hypertension -- controlled. 4. History of cerebrovascular accident. 5. Hypercholesterolemia. 6. Breast carcinoma - status post lumpectomy and XRT 2006. 7. Hereditary spherocytosis.
[2017-08-15 13:33] VITALS: BP 106/69; PULSE 82; TEMP 37.1; O2SAT 94
--- NOTE | 2017-08-15 14:04 | Surgery Consultation ---
Consultation Date of Service Aug 15, 2017. (Nubia Logan, LADARIUS) Chief Complaint R wrist pseudoaneurysm (Nubia Logan, LADARIUS) History of Present Illness The patient is a 82 year old female with hx of CVA, breast ca, HTN, admitted last week with NSTEMI and s/p cardiac catheterization with JOHN x2, seen in consultation today for R wrist access site pseudoaneurysm. Pt admits severe pain in R wrist/forearm, as well as edema and ecchymosis. Difficulty ambulating with walker d/t inability to lean on her wrists on the walker for support. Admits fatigue/malaise/ general weakness. Denies BALTAZAR, fever, chills, chest pain, SOB, abd pain, N/V, rest pain, claudication, other complaints. Of note, pt has been on plavix for CVA and had stopped it for 2 days prior to a dental procedure last week. Imaging demonstrates large R wrist pseudoaneurysm. (Nubia Logan, MICHAC) Vitals Vital Signs Past 12 Hours Date Time Temp Pulse Resp B/P (MAP) Pulse Ox O2 Delivery O2 Flow Rate FiO2 08/15/17 13:33 37.1 82 20 106/69 (81) 94 Room Air 08/15/17 09:53 83 122/74 (90) 08/15/17 08:00 Room Air 08/15/17 07:39 36.7 92 16 142/82 (102) 94 Room Air (Nubia Logan, MICHAC) Allergies Coded Allergies: Vancomycin (Verified Allergy, Intermediate, rash, 08/10/17) Diphenhydramine (Verified Allergy, Mild, Redness, 08/10/17) Amoxicillin (Verified Allergy, Unknown, bad reaction/glands swollen puffed up, 08/10/17) Clavulanic Acid (Verified Allergy, Unknown, 08/10/17) Codeine (Verified Allergy, Unknown, 08/10/17) Home Medications Scheduled Amoxicillin (Amoxil), 500 MG PO BID Ascorbic Acid (Vitamin C), 500 MG PO DAILY Calcium (Calcium), 600 MG PO Q2D Cetirizine (Zyrtec), 5 MG PO QPM Cholecalciferol (Vitamin D 1000 Unit), 2,000 INTER.UNIT PO QPM Clopidogrel Bisulfate (Clopidogrel), 75 MG PO DAILY Ezetimibe (Zetia), 10 MG PO QPM Losartan Potassium (Cozaar), 50 MG PO DAILY Multivitamin (Multivitamin), 1 TAB PO DAILY Oxybutynin Chloride (Oxybutynin Chloride Er), 5 MG PO DAILY Probiotic Product (Probiotic), 1 CAP PO QPM Scheduled PRN Hydrocodone/Acetaminophen 5MG/325MG ([place] 5MG/325MG), 0.5 TABLET PO HS PRN for Pain Polyethylene Glycol 3350 (Miralax), 17 GM PO DAILY PRN for Constipation Problem List Medical Problems: (1) Breast cancer (2) Constipation (3) Diarrhea (4) Diverticulitis (5) Gastroenteritis (6) GI bleeding (7) HEREDITARY SPHEROCYTOSIS (8) Hernia (9) History of gallbladder surgery (10) Hypertensive crisis (11) Low back pain (12) Nausea & vomiting (13) Pancreatitis (14) Perforated bowel (15) Right TKR 07/2010 Surgical Problems: (1) Colostomy in place (2) History of section (3) History of lumpectomy (4) History of splenectomy (Nubia Logan PA-C) Surgical / Medical History Hx Cardiac Surgery: No Hx Abdominal Surgery: Yes (cholecystectomy, splenectomy, 4 C sections, colostomy 2012) Hx Cancer Surgery: Yes (left breast lumpectomy 2003) Hx Thoracic Surgery: No Hx Orthopedic: Yes (right knee 2010) Hx Urinary Tract Surgery: No HX Other Surgery: No Past Medical/Surgical History: CVA/TIA, Hypertension (Nubia Logan PA-C) Family History Cancer (breast, colon) Diabetes mellitus Hypertension (Nubia Logan PA-C) Cancer (breast, colon) Diabetes mellitus Hypertension (Keven Villela M.D.) Social History Smoking Status: Never Smoker Hx Tobacco Use In Past Year?: No Hx Alcohol Use - Type & Amnt: No Hx Substance Use -Type & Amnt: No (Nubia Logan PA-C) Review of Systems Constitutional: + malaise, No chills, No fever Skin: + change in color Eyes: No visual changes ENMT: No sore throat Respiratory: No cough, No WOODS, No hemoptysis, No short of breath Cardiovascular: No chest pain, No syncope, No edema, No intermittent claudication Gastrointestinal: No abdominal pain, No nausea, No vomiting Genitourinary - Female: No dysuria, No hematuria (Nubia Logan PA-C) Physical Exam Constitutional: General Apperance: heathly-appearing, well-nourished, well-developed Level of Distress: NAD, acutely ill Psychiatric: Mental Status: active & alert, normal mood, normal affect Orientation: oriented except where noted, to time, to place, to person Memory: recent memory normal, remote memory normal Head: normocephalic, atraumatic Eyes: EOM: EOMI ENMT: normal ENT inspection, hearing grossly normal Neck: supple, trachea midline Lungs: Respiratory effort: no dyspnea Auscultation: no rales/crackles, no rhonchi, decreased breath sounds Cardiovascular: Apical Impulse: not displaced Heart Auscultation: RRR, no rubs, no gallops Peripheral Pulses: Pulses: full and equal, in all extremities except if noted Bruits: none appreciated Carotid Pulse: normal on the left, normal on the right Brachial Pulses: normal on the left, normal on the right Radial Pulse: normal on the left, pertinent finding (large, firm, pulsating ecchymotic mass over R radial access site. Surrounding soft ecchymosis noted. + tenderness) Femoral Pulse: normal on the left, normal on the right Posterior Tibialis Pulse: decreased on the left, decreased on the right Dorsalis Pedis Pulse: decreased on the left, decreased on the right Abdomen: Bowel Sounds: normal Inspection & Palpation: soft, non-distended, no tenderness, guarding & rebound Musculoskeletal: normal strength (5/5 throughout), normal tone Extremities: Upper Right: no cyanosis, no varicosities, edema (see pulse exam) Upper Left: no cyanosis, no edema, no varicosities Lower Right: no cyanosis, no edema, no varicosities Lower Left: no cyanosis, no edema, no varicosities (Nubia Logan, LADARIUS) Assessment and Plan ASSESSMENT and PLAN: R wrist pseudoaneurysm Pt imaging reviewed by Dr Villela as well. Recommends pt undergo surgical repair of R wrist pseudoaneurysm in OR on MONDAY. Pt and daughter agreeable. Plavix continuance per cardiology. (Nubia Logan, PA-C) Patient was seen, examined, and chart reviewed. Agree with exam and treatment plan of the Vascular PA. (Keven Villela M.D.)
[2017-08-15 15:16] VITALS: BP 118/75; PULSE 68; TEMP 37.1; O2SAT 95
[2017-08-15 15:37] VITALS: BP 118/75; PULSE 69; O2SAT 95
--- NOTE | 2017-08-15 16:02 | Progress Note ---
Subjective Date of Service: Aug 15, 2017. Subjective pt is a bit depressed she continues to have tenderness at right wrist, she did have some bowel movements but also some vomiting Problem List Medical Problems: (1) Abnormal EKG Status: Acute (2) Bilateral arm pain Status: Acute (3) Chest pain Status: Acute (4) Dehydration Status: Acute (5) Diarrhea Status: Acute (6) Diarrhea Status: Acute (7) GI bleed Status: Acute (8) Headache Status: Acute (9) Hypertension Status: Acute (10) NSTEMI (non-ST elevated myocardial infarction) Status: Acute (11) Sinusitis Status: Acute (12) Upper abdominal pain Status: Acute Review of Systems Constitutional: + weakness, + fatigue, No fever, No chills Respiratory: No cough, No shortness of breath Cardiac: No chest pain, No edema Abdomen: + pain, + nausea, + vomiting, + constipation, No diarrhea Musculoskeletal: + joint pain, + muscle pain, + swelling Female : No dysuria, No urinary frequency Objective Vital Signs Date Time Temp Pulse Resp B/P (MAP) Pulse Ox O2 Delivery O2 Flow Rate FiO2 08/15/17 15:37 69 95 08/15/17 15:16 37.1 68 18 118/75 (89) 95 Room Air 08/15/17 13:33 37.1 82 20 106/69 (81) 94 Room Air 08/15/17 09:53 83 122/74 (90) 08/15/17 08:00 Room Air 08/15/17 07:39 36.7 92 16 142/82 (102) 94 Room Air 08/14/17 23:18 37.2 78 17 146/76 (99) 94 Room Air 08/14/17 20:00 95 Room Air Physical Exam General Appearance: WD/WN, + mild distress Eyes: normal inspection, sclerae normal Neck: supple, no JVD Respiratory/Chest: chest non-tender, + decreased breath sounds Cardiovascular: regular rate, rhythm, no murmur Abdomen: normal bowel sounds, non tender, soft Extremities: + swelling, + pertinent finding (pulsatile area right wrist) Laboratory Results Last 24 Hours Test 08/15/17 05:11 Activated Partial Thromboplast Time 30.1 SECONDS Partial Thromboplastin Ratio 1.2 Assessment and Plan 82 F presented with unstable angina and NSTEMI, with a history of HTN, HLD, CVA about 5 months ago, CKD stage III, neuropathy, h/o breast cancer, partial colectomy, and GERD NSTEMI--resolvied-Cardiology consulted, s/p cardiac cath 08/10 showed severe multivessel CAD, most notably mid LAD with 90-95% stenosis, mid circumflex 90%. Successful PCI of mid LAD and 1 JOHN placed -Repeat cardiac cath 08/11, 2nd stent placed in proximal to mid LAD overlapping w/ 1st stent, one stent placed in circumflex -Echocardiogram shows EF 55-60%. Apical akinesis, new from previous study. Mild mitral regurgitation. No thrombus seen. -Continue Lipitor 40 mg PO qd, Continue ASA Lopressor 25 mg PO BID per cardio -Right Wrist has a pseudoaneurysm, vascular surgery plans to repair on monday will need plavix continued nausea and constipation ,did have bowel results with cathartics, will check abd xray to rule out sbo due to vomiting and large ventral hernia HTN, HLD, h/o CVA w/residual right sided weakness--stable, Plavix, losartan 50 mg PO qd, Zetia 10 mg PO qd -Lopressor, Lipitor and ASA as above, will need subacute rehab Left leg pain--persistent from admission -Venous Doppler LLE negative for DVT CKD stage III--stable Urinary incontinence--UA negative, oxybutynin 5 mg PO qd, H/o breast cancer s/p lumpectomy and radiation-- H/o diverticulitis s/p partial colectomy-- DVT prophylaxis -Heparin d/c'd, will hold off chemical ppx for now given worsening hematoma -RANDA baker and SCDs Code Status -Level I, FULL RESUSCITATION STATUS -No prolonged measures Dispo-PT recommends inpatient rehab. pt not strong enough for acute rehab Continued [facility] stay due to: multiple IV medications needed Discharge planning: home
--- NOTE | 2017-08-15 16:42 | DIAGNOSTIC IMAGING REPORT ---
CHEST ONE VIEW PORTABLE, KUB HISTORY: 82 years-old Female VOMITING HAS HERNIA, ? SBO acute vomiting COMPARISON: KUB 08/10/2017, CT abdomen and pelvis 08/28/2016, chest radiograph 04/30/2017 TECHNIQUE: Portable AP view of the chest with KUB radiograph FINDINGS: CHEST: Cardiac silhouette is upper limits of normal in size. Atherosclerosis of the aorta. Aortic annular calcifications are present. Prominence of the right paratracheal tissues at the medial right lung apex are again noted. Mild right hemidiaphragmatic elevation. There is no pneumothorax, pleural effusion, focal airspace consolidation or overt pulmonary edema. Degenerative changes of the shoulders and spine. KUB: No pneumatosis or pneumoperitoneum identified. The bowel gas pattern appears nonobstructive. Calcifications of the pelvis suggest phleboliths. No definite urolith identified however the renal shadows are obscured by bowel gas. No organomegaly. Degenerative changes of the hips and spine. IMPRESSION: 1. No acute process of the chest. 2. Nonobstructive bowel gas pattern. 3. No urolith identified. The above report was generated using voice recognition software. It may contain grammatical, syntax or spelling errors. Electronically signed by: Curtis Olivarez M.D. 08/15/2017 4:41 PM Dictated Date/Time: 08/15/2017 4:37 PM
[2017-08-15 19:16] VITALS: BP 113/72; PULSE 84; TEMP 37.5; O2SAT 94
[2017-08-15] MEDS: CHOLECALCIFEROL 1000 INTER.UNIT TAB PO SCH (19:42)
[2017-08-15] MEDS: CETIRIZINE HCL 10 MG TAB PO SCH (19:43)
[2017-08-16] VITALS (7 sets, daily range): BP systolic 113–127; BP diastolic 68–84; PULSE 68–90; TEMP 36.6–37.6; O2SAT 93–96
[2017-08-16 07:21] LABS: PTT PATIENT 33.6 SECONDS (21.0-31.0)
[2017-08-16] MEDS: ACETAMINOPHEN 325 MG TAB PO PRN ×4 (07:54→22:15)
[2017-08-16] MEDS: OXYBUTYNIN CHLORIDE 5 MG TABCR PO SCH (07:54)
[2017-08-16] MEDS: LOSARTAN POTASSIUM 50 MG TAB PO SCH (07:54)
[2017-08-16] MEDS: METOPROLOL TARTRATE 25 MG TAB PO SCH ×2 (07:54→20:45)
[2017-08-16] MEDS: ATORVASTATIN 40 MG TAB PO SCH (07:54)
[2017-08-16] MEDS: ASCORBIC ACID 500 MG TAB PO SCH (07:54)
[2017-08-16] MEDS: ASPIRIN 81 MG ECTAB PO SCH (07:54)
[2017-08-16] MEDS: MULTIVITAMIN TAB PO SCH (07:54)
[2017-08-16] MEDS: POLYETHYLENE (MIRALAX) 17 GM PACK PO SCH ×2 (07:56→20:45)
[2017-08-16] MEDS: CLOPIDOGREL BISULFATE 75 MG TAB PO SCH (10:51)
[2017-08-16 12:43] LABS: BASO % 0.1 %; BASO ABS # 0.02 K/uL (0-0.2); EOS % 0.4 %; EOS ABS # 0.05 K/uL (0-0.5); HEMATOCRIT 35.2 % (37-47); IG# 0.07 K/uL (0.00-0.02); LYMPH % 14.6 %; LYMPH ABS # 2.03 K/uL (1.2-3.4); MEAN CELL VOLUME 91.2 fL (80-100); MEAN CORPUSCULAR HEMOGLOBIN 31.1 pg (25-34); MEAN CORPUSCULAR HGB CONC 34.1 g/dl (32-36); MEAN PLATELET VOLUME 9.2 fL (7.4-10.4); MONO % 8.1 %; MONO ABS # 1.12 K/uL (0.11-0.59); NEUT % 76.3 %; NEUT ABS # 10.58 K/uL (1.4-6.5); PLATELET COUNT 416 K/uL (130-400); RED CELL DISTRIBUTION WIDTH CV 13.9 % (11.5-14.5); RED CELL DISTRIBUTION WIDTH SD 45.6 fL (36.4-46.3); WHITE BLOOD COUNT 13.87 K/uL (4.8-10.8)
[2017-08-16 13:17] LABS: CALCIUM 8.3 mg/dl (8.5-10.1); CREATININE 0.96 mg/dl (0.60-1.20); POTASSIUM 4.4 mmol/L (3.5-5.1)
--- NOTE | 2017-08-16 18:55 | Progress Note ---
Subjective Date of Service: Aug 16, 2017. Subjective pt has no new complaints, is tolerating diet and is not longer nauseated. her wrist is ammonia distiller and swollen Problem List Medical Problems: (1) Abnormal EKG Status: Acute (2) Bilateral arm pain Status: Acute (3) Chest pain Status: Acute (4) Dehydration Status: Acute (5) Diarrhea Status: Acute (6) Diarrhea Status: Acute (7) GI bleed Status: Acute (8) Headache Status: Acute (9) Hypertension Status: Acute (10) NSTEMI (non-ST elevated myocardial infarction) Status: Acute (11) Sinusitis Status: Acute (12) Upper abdominal pain Status: Acute Review of Systems Constitutional: No fever, No chills, No weakness Respiratory: No cough, No shortness of breath Cardiac: No chest pain, No edema Abdomen: No pain, No vomiting, No diarrhea Musculoskeletal: + joint pain, + muscle pain, + swelling Neurologic: No memory loss, No weakness Psychiatric: No depression symptoms, No anxiety Objective Vital Signs Date Time Temp Pulse Resp B/P (MAP) Pulse Ox O2 Delivery O2 Flow Rate FiO2 08/16/17 08:15 Room Air 08/16/17 06:57 37.0 90 17 126/84 (98) 94 Room Air 08/16/17 04:19 37.0 72 18 126/84 (98) 95 Room Air 08/15/17 23:59 Room Air 08/15/17 19:16 37.5 84 16 113/72 (86) 94 Room Air 08/15/17 16:00 Room Air 08/15/17 15:37 69 95 08/15/17 15:16 37.1 68 18 118/75 (89) 95 Room Air 08/15/17 13:33 37.1 82 20 106/69 (81) 94 Room Air 08/15/17 09:53 83 122/74 (90) Physical Exam General Appearance: WD/WN, + mild distress Eyes: normal inspection, sclerae normal Neck: supple, no JVD Respiratory/Chest: chest non-tender, lungs clear, normal breath sounds Cardiovascular: regular rate, rhythm, no murmur Abdomen: normal bowel sounds, non tender, soft Extremities: no pedal edema, no calf tenderness Neurologic/Psychiatric: alert, oriented x 3 Laboratory Results Last 24 Hours Test 08/16/17 06:38 Activated Partial Thromboplast Time 33.6 SECONDS Partial Thromboplastin Ratio 1.3 Assessment and Plan 82 F presented with unstable angina and NSTEMI, with a history of HTN, HLD, CVA about 5 months ago, CKD stage III, neuropathy, h/o breast cancer, partial colectomy, and GERD NSTEMI--resolved, s/p cardiac cath 08/10 showed severe multivessel CAD, most notably mid LAD with 90-95% stenosis, mid circumflex 90%. Successful PCI of mid LAD and 1 JOHN placed -Repeat cardiac cath 08/11, 2nd stent placed in proximal to mid LAD overlapping w/ 1st stent, one stent placed in circumflex -Echocardiogram shows EF 55-60%. Apical akinesis, new from previous study. Mild mitral regurgitation. No thrombus seen. -Continue Lipitor 40 mg PO qd, Continue ASA Lopressor 25 mg PO BID per cardio -Right Wrist has a pseudoaneurysm, vascular surgery plans to repair on monday will need plavix continued during that time nausea and constipation ,did have bowel results with cathartics, no sbo, symptoms resolved HTN, HLD, h/o CVA w/residual right sided weakness--stable, Plavix, losartan 50 mg PO qd, Zetia 10 mg PO qd -Lopressor, Lipitor and ASA as above, will need subacute rehab Left leg pain--persistent from admission -Venous Doppler LLE negative for DVT CKD stage III--stable Urinary incontinence--UA negative, oxybutynin 5 mg PO qd, H/o breast cancer s/p lumpectomy and radiation-- H/o diverticulitis s/p partial colectomy-- DVT prophylaxis -Heparin d/c'd, will hold off chemical ppx for now given worsening hematoma -RANDA baker and SCDs Code Status -Level I, FULL RESUSCITATION STATUS -No prolonged measures Dispo-PT recommends inpatient rehab. pt not strong enough for acute rehab Continued [facility] stay due to: multiple IV medications needed Discharge planning: home
[2017-08-16] MEDS: CETIRIZINE HCL 10 MG TAB PO SCH (20:45)
[2017-08-16] MEDS: CHOLECALCIFEROL 1000 INTER.UNIT TAB PO SCH (20:45)
[2017-08-17] VITALS (7 sets, daily range): BP systolic 119–136; BP diastolic 75–82; PULSE 63–81; TEMP 36.6–37.2; O2SAT 94–97
[2017-08-17 06:11] LABS: PTT PATIENT 31.4 SECONDS (21.0-31.0)
[2017-08-17] MEDS: ACETAMINOPHEN 325 MG TAB PO PRN ×3 (06:37→19:47)
[2017-08-17] MEDS: ASCORBIC ACID 500 MG TAB PO SCH (07:37)
[2017-08-17] MEDS: ATORVASTATIN 40 MG TAB PO SCH (07:37)
[2017-08-17] MEDS: LOSARTAN POTASSIUM 50 MG TAB PO SCH (07:37)
[2017-08-17] MEDS: MULTIVITAMIN TAB PO SCH (07:37)
[2017-08-17] MEDS: POLYETHYLENE (MIRALAX) 17 GM PACK PO SCH ×2 (07:37→20:48)
[2017-08-17] MEDS: OXYBUTYNIN CHLORIDE 5 MG TABCR PO SCH (07:37)
[2017-08-17] MEDS: METOPROLOL TARTRATE 25 MG TAB PO SCH ×2 (07:37→20:48)
[2017-08-17] MEDS: CLOPIDOGREL BISULFATE 75 MG TAB PO SCH (07:37)
[2017-08-17] MEDS: ASPIRIN 81 MG ECTAB PO SCH (07:37)
--- NOTE | 2017-08-17 08:59 | CARDIOLOGY PROGRESS NOTE ---
DATE: 08/17/2017 SUBJECTIVE: Mrs. Grace is resting comfortably in bed without complaints of chest pain or dyspnea. Does complain of right wrist discomfort. OBJECTIVE: VITAL SIGNS: Blood pressure 130/80 with a regular pulse 72. Respiratory rate is 20 and the patient is afebrile at 36.8 degrees Celsius. Saturations 95% on room air. NECK: Supple with full carotid upstrokes. There are no carotid bruits. Jugular venous pressure is flat at 90 degrees. There is no thyromegaly. CARDIOVASCULAR: Reveals a regular rhythm with normal S1, S2. Heart sounds are distant. No obvious murmurs. LUNGS: Clear without rales, rhonchi, or wheezes. ABDOMEN: Soft and nontender without bruits. EXTREMITIES: Note no pretibial edema. Right wrist is unchanged. DATA: Electrolytes note a sodium of 127, potassium 4.4, chloride 96, bicarbonate 26, BUN 18, creatinine 0.96, glucose 156. PTT is 31.4. telemetry monitor is benign. IMPRESSION AND PLAN: 1. Non-ST elevation myocardial infarction -- the patient had a drug-eluting stent placed in the mid LAD last week with a staged procedure deploying a stent in the left circumflex on the following day. Continue medical management. 2. Right radial artery pseudoaneurysm -- will go to the OR tomorrow for repair by Dr. Villela. 3. Hypertension -- controlled. 4. History of CVA. 5. Hypercholesterolemia. 6. Breast carcinoma -- status post lumpectomy and XRT 2006. 7. Hereditary spherocytosis.
--- NOTE | 2017-08-17 14:13 | Progress Note ---
Subjective Date of Service: Aug 17, 2017. Subjective this pt looks much better today still has some wrist discomfort, awaiting surgical repair of pseudoaneurysm Problem List Medical Problems: (1) Abnormal EKG Status: Acute (2) Bilateral arm pain Status: Acute (3) Chest pain Status: Acute (4) Dehydration Status: Acute (5) Diarrhea Status: Acute (6) Diarrhea Status: Acute (7) GI bleed Status: Acute (8) Headache Status: Acute (9) Hypertension Status: Acute (10) NSTEMI (non-ST elevated myocardial infarction) Status: Acute (11) Sinusitis Status: Acute (12) Upper abdominal pain Status: Acute Review of Systems Constitutional: + weakness, + fatigue, No fever, No chills Cardiac: + edema, No chest pain, No PND Abdomen: No pain, No nausea, No vomiting Female : No dysuria, No urinary frequency Psychiatric: No depression symptoms, No anxiety Objective Vital Signs Date Time Temp Pulse Resp B/P (MAP) Pulse Ox O2 Delivery O2 Flow Rate FiO2 08/17/17 10:59 36.6 63 20 119/78 (92) 96 Room Air 08/17/17 07:45 Room Air 08/17/17 07:15 36.8 72 20 130/80 (97) 95 Room Air 08/17/17 03:07 37.1 71 19 127/75 (92) 94 Room Air 08/16/17 23:22 37.6 68 18 113/68 (83) 93 Room Air 08/16/17 20:00 94 08/16/17 19:11 36.6 80 18 117/75 (89) 94 Room Air 08/16/17 15:56 36.9 86 18 127/74 (91) 96 Room Air Physical Exam General Appearance: WD/WN, + mild distress Eyes: normal inspection, sclerae normal Respiratory/Chest: chest non-tender, lungs clear Cardiovascular: regular rate, rhythm, no murmur Abdomen: normal bowel sounds, non tender, soft Neurologic/Psychiatric: alert, oriented x 3 Laboratory Results Last 24 Hours Test 08/17/17 05:44 08/17/17 10:35 Activated Partial Thromboplast Time 31.4 SECONDS Partial Thromboplastin Ratio 1.2 Urine Color YELLOW Urine Appearance CLEAR Urine pH 7.0 Urine Specific [place] 1.011 Urine Protein NEG Urine Glucose (UA) NEG Urine Ketones NEG Urine Occult Blood NEG Urine Nitrite NEG Urine Bilirubin NEG Urine Urobilinogen NEG Urine Leukocyte Esterase TRACE Urine WBC (Auto) 1-5 /hpf Urine RBC (Auto) 0-4 /hpf Urine Hyaline Casts (Auto) 1-5 /lpf Urine Epithelial Cells (Auto) >30 /lpf Urine Bacteria (Auto) NEG Urine Random Sodium 44 mEq/L Assessment and Plan 82 F presented with unstable angina and NSTEMI, with a history of HTN, HLD, CVA about 5 months ago, CKD stage III, neuropathy, h/o breast cancer, partial colectomy, and GERD Right wrist psuedo aneurysm, for surgical repair on friday 08/18 has some swelling and pain at the site NSTEMI--resolved, s/p cardiac cath 08/10 showed severe multivessel CAD, most notably mid LAD with 90-95% stenosis, mid circumflex 90%. Successful PCI of mid LAD and 1 JOHN placed -Repeat cardiac cath 08/11, 2nd stent placed in proximal to mid LAD overlapping w/ 1st stent, one stent placed in circumflex -Echocardiogram shows EF 55-60%. Apical akinesis, new from previous study. Mild mitral regurgitation. No thrombus seen. -Continue Lipitor 40 mg PO qd, Continue ASA Lopressor 25 mg PO BID per cardio -Right Wrist has a pseudoaneurysm, vascular surgery plans to repair on monday will need plavix continued during that time nausea and constipation , symptoms resolved HTN, HLD, h/o CVA w/residual right sided weakness--stable, Plavix, losartan 50 mg PO qd, Zetia 10 mg PO qd -Lopressor, Lipitor and ASA as above, continues need subacute rehab Left leg pain--persistent from admission -Venous Doppler LLE negative for DVT CKD stage III--stable Urinary incontinence--UA negative, oxybutynin 5 mg PO qd, H/o breast cancer s/p lumpectomy and radiation-- H/o diverticulitis s/p partial colectomy-- DVT prophylaxis -Heparin d/c'd, will hold off chemical ppx for now given worsening hematoma -RANDA hose and SCDs Code Status -Level I, FULL RESUSCITATION STATUS -No prolonged measures Dispo-PT recommends inpatient rehab. pt not strong enough for acute rehab Continued [facility] stay due to: multiple IV medications needed Discharge planning: home
--- NOTE | 2017-08-17 19:08 | Progress Note ---
Progress Note Date of Service Aug 17, 2017. Progress Note The patient is an [age] year old female who suffered an NSTEMI one week ago. At that time a cardiac catheterization was performed and two drug eluting stents were placed. She is scheduled tomorrow for repair of a pseudoaneurysm of her right radial artery. Of concern is the fact that her serum sodium has dropped significantly since admission, from 137 to 129 yesterday. I ordered another PRP for 0600 tomorrow. Her other significant past medical history includes a CVA in January of 2017, with a right hemiparesis, hereditary spheroctosis, and hypertension. Her echocardiogram shows an EF of 55% with apical akinesis. She is on aspirin and plavix. Her airway is a mallampati 3/4 with minimal head tilt.
[2017-08-17] MEDS: CETIRIZINE HCL 10 MG TAB PO SCH (20:47)
[2017-08-17] MEDS: CHOLECALCIFEROL 1000 INTER.UNIT TAB PO SCH (20:48)
[2017-08-18] VITALS (7 sets, daily range): BP systolic 99–137; BP diastolic 62–81; PULSE 70–84; TEMP 36.9–37.4; O2SAT 94–98
[2017-08-18] MEDS: ACETAMINOPHEN 325 MG TAB PO PRN ×3 (03:45→23:47)
[2017-08-18] MEDS ORDERED: CLINDAMYCIN 600 MG/54 ML D5W IV SCH (06:00)
[2017-08-18] MEDS ORDERED: CLINDAMYCIN IV 600 MG in DEXTROSE 5% 50ML 50 ML IV ONE (06:00)
[2017-08-18] MEDS ORDERED: PROPOFOL IV EMULSION 10 MG/ML 20 ML VIAL ONE ×3 (06:52→08:33)
[2017-08-18] MEDS ORDERED: MIDAZOLAM HCL 1 MG/ML 2ML VIAL ONE ×2 (06:53→08:52)
[2017-08-18] MEDS ORDERED: FENTANYL CITRATE INJ 50 MCG/1 ML 2 ML VIAL ONE (06:54)
[2017-08-18] MEDS ORDERED: BUPIVACAINE/EPINEPHRINE 0.5% MPF 1:200,000 30 ML VIAL ONE (07:04)
[2017-08-18] MEDS ORDERED: LIDOCAINE HCL 1% 20 ML VIAL ONE (07:04)
[2017-08-18] MEDS ORDERED: HEPARIN SOD (PORCINE) 1000 UNIT/ML 10 ML VIAL ONE (07:04)
[2017-08-18] MEDS ORDERED: GELATIN SPONGE SZ 100 ONE (07:05)
[2017-08-18] MEDS ORDERED: THROMBIN 5000 UNITS KIT ONE (07:05)
[2017-08-18] MEDS ORDERED: EpHEDrine SULFATE INJ 50 MG/ML AMP IV PRN (07:15)
[2017-08-18] MEDS ORDERED: ONDANSETRON INJ 2 MG/ML 2 ML VIAL IV PRN (07:15)
[2017-08-18] MEDS ORDERED: ATROPINE SULFATE 0.1 MG/ML 5ML SYR IV PRN (07:15)
[2017-08-18] MEDS ORDERED: PHENYLEPHRINE 100MCG/ML 5ML SYR IV PRN (07:15)
--- NOTE | 2017-08-18 07:23 | Progress Note ---
Progress Note Date of Service Aug 18, 2017. Progress Note Patient for repair of her right wrist pseudoaneurysm. I have discussed the risks options and benefits of the procedure with the patient. The patient understands the risks options and benefits and agrees to the procedure. I have examined the patient, reviewed the History & Physical and in the interval since the performance of the History & Physical I have noted the following changes of clinical significance: No changes noted
[2017-08-18 07:25] LABS: CALCIUM 8.4 mg/dl (8.5-10.1); CREATININE 0.67 mg/dl (0.60-1.20); POTASSIUM 4.1 mmol/L (3.5-5.1)
[2017-08-18] MEDS: ASPIRIN 81 MG ECTAB PO SCH ×2 (09:00→13:35)
[2017-08-18] MEDS: POLYETHYLENE (MIRALAX) 17 GM PACK PO SCH ×2 (09:00→20:15)
[2017-08-18] MEDS: CLOPIDOGREL BISULFATE 75 MG TAB PO SCH ×2 (09:00→13:35)
--- NOTE | 2017-08-18 09:05 | [facility] Post Operative Brief Note ---
Immediate Operative Summary Operative Date Aug 18, 2017. Pre-Operative Diagnosis Right Radial Artery Pseudo Aneurysm Post-Operative Diagnosis Right Radial Artery Pseudo Aneurysm Procedure(s) Performed Repair Right Radial Artery Pseudo Aneurysm Surgeon Dr. Manish Villela Lpn Or Medical Assistant Surgeon(s) Tomeka Zarate MD, and Brannon Hernandez PA-C Estimated Blood Loss 150 ml Findings Consistent with Post-Op Diagnosis Specimens no specimen per surgeon Drains None Anesthesia Type MAC Complication(s) none Disposition Accompanied Pt To Recover: no Disposition: Recovery Room / PACU
[2017-08-18] MEDS: FENTANYL CITRATE INJ 50 MCG/1 ML 2 ML VIAL IV PRN ×3 (09:52→10:05)
--- NOTE | 2017-08-18 09:55 | Anesthesiology Progress Note ---
Anesthesia Post Op Note Date & Time Aug 18, 2017 at 09:55 Vital Signs Pain Intensity: 0 Vital Signs Past 12 Hours Date Time Temp Pulse Resp B/P (MAP) Pulse Ox O2 Delivery O2 Flow Rate FiO2 08/18/17 09:40 77 20 138/76 98 Nasal Cannula 2 08/18/17 09:31 36.2 86 20 132/73 95 Nasal Cannula 2 08/18/17 06:50 37.2 75 18 134/81 (98) 96 Room Air 08/18/17 03:20 37.1 80 18 137/80 (99) 95 Room Air 08/17/17 23:35 36.7 74 18 136/82 (100) 96 Room Air Notes Mental Status: alert / awake / arousable, participated in evaluation Pt Amnestic to Procedure: Yes Nausea / Vomiting: adequately controlled Pain: adequately controlled Airway Patency, RR, SpO2: stable & adequate BP & HR: stable & adequate Hydration State: stable & adequate Anesthetic Complications: no major complications apparent
--- NOTE | 2017-08-18 10:09 | [facility] Operative Report ---
Operative Report Operative Date Aug 18, 2017. Pre-Operative Diagnosis Right Radial Artery Pseudo Aneurysm Post-Operative Diagnosis Right Radial Artery Pseudo Aneurysm Procedure(s) Performed Repair Right Radial Artery Pseudo Aneurysm Surgeon Dr. Manish Villela Primer [employer] Machine Operator Surgeon(s) Tomeka Zarate MD, and Brannon Hernandez PA-C Estimated Blood Loss 150 ml Findings 3 distinct holes within the radial artery Specimens no specimen per surgeon Drains None Anesthesia Type MAC Complication(s) none Disposition no Recovery Room / PACU Indications Ms. Grace is an 82-year-old woman who I recently had an [place] and diagnostic and interventional heart catheterizations via her right radial artery. Post procedurally she was noted to have a large pulsating mass at the entry site. Studies performed showed a 3cm pseudoaneurysm of the right radial artery. Description of Procedure The patient's right arm was prepped and draped in a sterile fashion. Ten cc's of local anesthetic were administered subcutaneously. An incision was made over the lateral aspect of the forearm directly above the right radial artery pseudoaneurysm. An ellipse of tissue was removed where the skin above had necrosed. We then dissected down to the radial artery, entering the pseudoaneurysm and removing organized thrombus within it. The artery was clamped proximally and distally using angled DeBakey clamps. It was then cleaned to identify 3 distinct holes within the anterior wall of the artery. The arteriotomies were then sutured with 7-0 Prolene. Hemostasis was achieved with thrombin and Gelfoam application. This was then removed and the skin reapproximated with brandon. The patient tolerated the procedure well. I attest to the content of the Intraoperative Record and any orders documented therein. Any exceptions are noted below.
[2017-08-18] MEDS: TRAMADOL HCL 50 MG TAB PO PRN (11:56)
[2017-08-18] MEDS: LOSARTAN POTASSIUM 50 MG TAB PO SCH (11:57)
[2017-08-18] MEDS: MULTIVITAMIN TAB PO SCH (11:57)
[2017-08-18] MEDS: METOPROLOL TARTRATE 25 MG TAB PO SCH ×2 (11:57→20:13)
[2017-08-18] MEDS: ATORVASTATIN 40 MG TAB PO SCH (11:57)
[2017-08-18] MEDS: OXYBUTYNIN CHLORIDE 5 MG TABCR PO SCH (11:57)
[2017-08-18] MEDS: ASCORBIC ACID 500 MG TAB PO SCH (11:58)
--- NOTE | 2017-08-18 15:00 | Progress Note ---
Subjective Date of Service: Aug 18, 2017. Subjective pt is seen status post pseudoanuerysm surgery repair, has no active complaints, wrist is still sore but feeling better Problem List Medical Problems: (1) Abnormal EKG Status: Acute (2) Bilateral arm pain Status: Acute (3) Chest pain Status: Acute (4) Dehydration Status: Acute (5) Diarrhea Status: Acute (6) Diarrhea Status: Acute (7) GI bleed Status: Acute (8) Headache Status: Acute (9) Hypertension Status: Acute (10) NSTEMI (non-ST elevated myocardial infarction) Status: Acute (11) Sinusitis Status: Acute (12) Upper abdominal pain Status: Acute Review of Systems Constitutional: No fever, No chills, No sweats, No weakness Respiratory: No cough, No sputum, No wheezing, No shortness of breath Cardiac: No chest pain, No orthopnea, No PND, No edema Abdomen: No pain, No nausea, No vomiting, No diarrhea Musculoskeletal: + joint pain, + swelling, No muscle pain Neurologic: + weakness, No memory loss Objective Vital Signs Date Time Temp Pulse Resp B/P (MAP) Pulse Ox O2 Delivery O2 Flow Rate FiO2 08/18/17 11:35 37.0 80 20 132/77 (95) 98 Room Air 08/18/17 10:50 Room Air 08/18/17 10:20 36.5 77 20 142/73 98 Nasal Cannula 2 08/18/17 10:10 73 18 140/68 98 Nasal Cannula 2 08/18/17 10:00 74 19 142/73 97 Nasal Cannula 2 08/18/17 09:50 76 23 146/72 98 Nasal Cannula 2 08/18/17 09:40 77 20 138/76 98 Nasal Cannula 2 08/18/17 09:31 36.2 86 20 132/73 95 Nasal Cannula 2 08/18/17 06:50 37.2 75 18 134/81 (98) 96 Room Air 08/18/17 03:20 37.1 80 18 137/80 (99) 95 Room Air 08/17/17 23:35 36.7 74 18 136/82 (100) 96 Room Air 08/17/17 20:00 95 Room Air 08/17/17 19:25 37.2 81 17 121/77 (92) 95 Room Air 08/17/17 16:00 Room Air 08/17/17 15:01 37.2 77 17 130/82 (98) 97 Room Air Physical Exam General Appearance: WD/WN, + mild distress Eyes: normal inspection, sclerae normal Neck: supple, no JVD Respiratory/Chest: chest non-tender, lungs clear, normal breath sounds Cardiovascular: regular rate, rhythm, no murmur Abdomen: normal bowel sounds, soft Extremities: + pedal edema, + swelling Neurologic/Psychiatric: alert, oriented x 3 Laboratory Results Last 24 Hours Test 08/18/17 06:01 Sodium Level 129 mmol/L Potassium Level 4.1 mmol/L Chloride Level 98 mmol/L Carbon Dioxide Level 22 mmol/L Anion Gap 9.0 mmol/L Blood Urea Nitrogen 19 mg/dl Creatinine 0.67 mg/dl Est Creatinine Clear Calc Drug Dose 64.3 ml/min Estimated GFR () 96.2 Estimated GFR (Non- 83.0 BUN/Creatinine Ratio 28.5 Random Glucose 93 mg/dl Calcium Level 8.4 mg/dl Assessment and Plan 82 F presented with unstable angina and NSTEMI, with a history of HTN, HLD, CVA about 5 months ago, CKD stage III, neuropathy, h/o breast cancer, partial colectomy, and GERD Right wrist psuedo aneurysm, with surgical repair, friday 08/18 has some swelling and pain at the site reportedly had 3 arterial punctures repaired NSTEMI--resolved, s/p cardiac cath 08/10 showed severe multivessel CAD, most notably mid LAD with 90-95% stenosis, mid circumflex 90%. Successful PCI of mid LAD and 1 JOHN placed -Repeat cardiac cath 08/11, 2nd stent placed in proximal to mid LAD overlapping w/ 1st stent, one stent placed in circumflex -Echocardiogram shows EF 55-60%. Apical akinesis, new from previous study. Mild mitral regurgitation. No thrombus seen. -Continue Lipitor 40 mg PO qd, Continue ASA Lopressor 25 mg PO BID per cardio -Right Wrist has a pseudoaneurysm, vascular surgery plans to repair on monday will need plavix continued during that time nausea and constipation , symptoms resolved HTN, HLD, h/o CVA w/residual right sided weakness--stable, Plavix, losartan 50 mg PO qd, Zetia 10 mg PO qd -Lopressor, Lipitor and ASA as above, continues need subacute rehab, will re engage PT/Ot Left leg pain--persistent from admission -Venous Doppler LLE negative for DVT CKD stage III--stable Urinary incontinence--UA negative, oxybutynin 5 mg PO qd, H/o breast cancer s/p lumpectomy and radiation-- H/o diverticulitis s/p partial colectomy--no further gi symptoms DVT prophylaxis -Heparin d/c'd, will hold off chemical ppx for now given worsening hematoma -RANDA baker and SCDs Code Status -Level I, FULL RESUSCITATION STATUS -No prolonged measures Dispo-PT recommends inpatient rehab. will look for subacute rehab Continued [facility] stay due to: multiple IV medications needed Discharge planning: home
[2017-08-18] MEDS: CHOLECALCIFEROL 1000 INTER.UNIT TAB PO SCH (20:13)
[2017-08-18] MEDS: CETIRIZINE HCL 10 MG TAB PO SCH (20:14)
[2017-08-19 02:55] VITALS: BP 110/69; PULSE 66; TEMP 37; O2SAT 92
[2017-08-19] MEDS: ACETAMINOPHEN 325 MG TAB PO PRN ×2 (06:27→18:35)
[2017-08-19 07:10] VITALS: BP 131/74; PULSE 66; TEMP 37.1; O2SAT 95
[2017-08-19] MEDS: POLYETHYLENE (MIRALAX) 17 GM PACK PO SCH ×2 (09:00→20:32)
[2017-08-19] MEDS: LOSARTAN POTASSIUM 50 MG TAB PO SCH (09:47)
[2017-08-19] MEDS: CLOPIDOGREL BISULFATE 75 MG TAB PO SCH (09:47)
[2017-08-19] MEDS: ASCORBIC ACID 500 MG TAB PO SCH (09:47)
[2017-08-19] MEDS: ASPIRIN 81 MG ECTAB PO SCH (09:47)
[2017-08-19] MEDS: MULTIVITAMIN TAB PO SCH (09:48)
[2017-08-19] MEDS: METOPROLOL TARTRATE 25 MG TAB PO SCH ×2 (09:48→20:32)
[2017-08-19] MEDS: OXYBUTYNIN CHLORIDE 5 MG TABCR PO SCH (09:48)
[2017-08-19] MEDS: ATORVASTATIN 40 MG TAB PO SCH (09:48)
[2017-08-19 12:06] VITALS: BP 123/79; PULSE 63; TEMP 37; O2SAT 98
--- NOTE | 2017-08-19 13:17 | Progress Note ---
Subjective Date of Service: Aug 19, 2017. Subjective pt is pleasant less wrist pain, no further chest pain, case management is working on placement in snf Problem List Medical Problems: (1) Abnormal EKG Status: Acute (2) Bilateral arm pain Status: Acute (3) Chest pain Status: Acute (4) Dehydration Status: Acute (5) Diarrhea Status: Acute (6) Diarrhea Status: Acute (7) GI bleed Status: Acute (8) Headache Status: Acute (9) Hypertension Status: Acute (10) NSTEMI (non-ST elevated myocardial infarction) Status: Acute (11) Sinusitis Status: Acute (12) Upper abdominal pain Status: Acute Review of Systems Constitutional: + weakness, + fatigue, No fever, No chills Respiratory: No cough, No shortness of breath Cardiac: + edema, No chest pain Abdomen: No pain, No nausea, No vomiting, No diarrhea Musculoskeletal: + joint pain, + muscle pain, + swelling Neurologic: No memory loss, No weakness Psychiatric: No depression symptoms, No anhedonism Objective Vital Signs Date Time Temp Pulse Resp B/P (MAP) Pulse Ox O2 Delivery O2 Flow Rate FiO2 08/19/17 12:06 37.0 63 20 123/79 (94) 98 Room Air 08/19/17 08:00 Room Air 08/19/17 07:10 37.1 66 18 131/74 (93) 95 Room Air 08/19/17 02:55 37.0 66 19 110/69 (83) 92 Room Air 08/18/17 23:25 37.4 70 19 99/62 (74) 94 Room Air 08/18/17 20:00 94 Room Air 08/18/17 19:04 37.3 84 16 115/72 (86) 94 Room Air 08/18/17 15:35 36.9 71 16 110/70 (83) 98 Room Air Physical Exam General Appearance: WD/WN, + mild distress Eyes: normal inspection, sclerae normal Neck: supple, no JVD Respiratory/Chest: chest non-tender, lungs clear, normal breath sounds Cardiovascular: regular rate, rhythm, no murmur Abdomen: normal bowel sounds, non tender, soft Extremities: no pedal edema, no calf tenderness Neurologic/Psychiatric: alert, oriented x 3 Assessment and Plan 82 F presented with unstable angina and NSTEMI, with a history of HTN, HLD, CVA about 5 months ago, CKD stage III, neuropathy, h/o breast cancer, partial colectomy, and GERD Right wrist psuedo aneurysm, with surgical repair, friday 08/18 improved swelling and pain at the site reportedly had 3 arterial punctures repaired NSTEMI--resolved, s/p cardiac cath 08/10 showed severe multivessel CAD, most notably mid LAD with 90-95% stenosis, mid circumflex 90%. Successful PCI of mid LAD and 1 JOHN placed -Repeat cardiac cath 08/11, 2nd stent placed in proximal to mid LAD overlapping w/ 1st stent, one stent placed in circumflex -Echocardiogram shows EF 55-60%. Apical akinesis, new from previous study. Mild mitral regurgitation. No thrombus seen. -Continue Lipitor 40 mg PO qd, Continue ASA Lopressor 25 mg PO BID per cardio -Right Wrist has a pseudoaneurysm, vascular surgery plans to repair on monday will need plavix continued during that time continue PT/OT nausea and constipation , no further symptoms tolerating diet HTN, HLD, h/o CVA w/residual right sided weakness--all remain stable, Plavix, losartan 50 mg PO qd, Zetia 10 mg PO qd -Lopressor, Lipitor and ASA as above, continues need subacute rehab, Left leg pain-improved from admission -Venous Doppler LLE negative for DVT CKD stage III-remains stable Urinary incontinence--UA negative, oxybutynin 5 mg PO qd, H/o breast cancer s/p lumpectomy and radiation-- H/o diverticulitis s/p partial colectomy--no further gi symptoms DVT prophylaxis -Heparin d/c'd, will hold off chemical ppx for now given worsening hematoma -RANDA baker and SCDs Code Status -Level I, FULL RESUSCITATION STATUS -No prolonged measures Dispo-PT recommends inpatient rehab. will look for subacute rehab Continued [facility] stay due to: multiple IV medications needed Discharge planning: home
[2017-08-19 15:51] VITALS: BP 115/75; PULSE 66; TEMP 36.7; O2SAT 97
[2017-08-19] MEDS: CHOLECALCIFEROL 1000 INTER.UNIT TAB PO SCH (20:31)
[2017-08-19] MEDS: CETIRIZINE HCL 10 MG TAB PO SCH (20:32)
[2017-08-20] VITALS: BP 136/80; PULSE 78; TEMP 36.8; O2SAT 96
[2017-08-20] MEDS: ACETAMINOPHEN 325 MG TAB PO PRN ×5 (00:45→21:11)
[2017-08-20 07:10] VITALS: BP 136/71; PULSE 74; TEMP 36.5; O2SAT 94
--- NOTE | 2017-08-20 08:37 | Progress Note ---
Subjective Date of Service: Aug 20, 2017. Subjective pt is in a depressed mood today, daughter at the bedside and updated, awaiting repeat labs on 08/21 to nancy acuna Problem List Medical Problems: (1) Abnormal EKG Status: Acute (2) Bilateral arm pain Status: Acute (3) Chest pain Status: Acute (4) Dehydration Status: Acute (5) Diarrhea Status: Acute (6) Diarrhea Status: Acute (7) GI bleed Status: Acute (8) Headache Status: Acute (9) Hypertension Status: Acute (10) NSTEMI (non-ST elevated myocardial infarction) Status: Acute (11) Sinusitis Status: Acute (12) Upper abdominal pain Status: Acute Review of Systems Constitutional: + weakness, + fatigue, No fever, No chills Respiratory: No cough, No shortness of breath Cardiac: No chest pain, No edema Abdomen: No pain, No nausea, No vomiting Musculoskeletal: + joint pain, + muscle pain Female : No dysuria, No urinary frequency Psychiatric: + depression symptoms, + anhedonism, + anxiety Objective Vital Signs Date Time Temp Pulse Resp B/P (MAP) Pulse Ox O2 Delivery O2 Flow Rate FiO2 08/20/17 07:10 36.5 74 15 136/71 (92) 94 Room Air 08/20/17 00:00 Room Air 08/20/17 00:00 36.8 78 18 136/80 (98) 96 Room Air 08/19/17 15:51 36.7 66 17 115/75 (88) 97 Room Air 08/19/17 15:50 Room Air 08/19/17 12:06 37.0 63 20 123/79 (94) 98 Room Air Physical Exam General Appearance: WD/WN, + mild distress Eyes: normal inspection, PERRL, EOMI, sclerae normal ENT: hearing grossly normal Neck: supple, no JVD Respiratory/Chest: chest non-tender, lungs clear, normal breath sounds Cardiovascular: regular rate, rhythm, no murmur Abdomen: normal bowel sounds, non tender, soft Skin: + pertinent finding (wound is clean and dry. brandon in tact) Assessment and Plan 82 F presented with unstable angina and NSTEMI, with a history of HTN, HLD, CVA about 5 months ago, CKD stage III, neuropathy, h/o breast cancer, partial colectomy, and GERD Right wrist psuedo aneurysm, with surgical repair, friday 08/18 improved swelling and pain at the site reportedly had 3 arterial punctures repaired, wound looks good currently progressing thru physical therapy and occupational therapy for subacute rehab placement NSTEMI-no chest pain, s/p cardiac cath 08/10 showed severe multivessel CAD, most notably mid LAD with 90-95% stenosis, mid circumflex 90%. Successful PCI of mid LAD and 1 JOHN placed -Repeat cardiac cath 08/11, 2nd stent placed in proximal to mid LAD overlapping w/ 1st stent, one stent placed in circumflex -Echocardiogram shows EF 55-60%. Apical akinesis, new from previous study. Mild mitral regurgitation. No thrombus seen. -Continue Lipitor 40 mg PO qd, Continue ASA Lopressor 25 mg PO BID per cardio -Right Wrist has a pseudoaneurysm, vascular surgery repair on 08/21 will need plavix continued continue PT/OT nausea and constipation , resolved, making stool in colostomy and tolerating diet HTN, HLD, h/o CVA w/residual right sided weakness--all remain stable, Plavix, losartan 50 mg PO qd, Zetia 10 mg PO qd -Lopressor, Lipitor and ASA as above, continues need subacute rehab, Pt has had liver sensitivity with statins in the past will have lft check on Left leg pain-resolved -Venous Doppler LLE negative for DVT CKD stage III-continues to remain stable Urinary incontinence--UA negative, oxybutynin 5 mg PO qd, H/o breast cancer s/p lumpectomy and radiation-- H/o diverticulitis s/p partial colectomy--no further gi symptoms DVT prophylaxis -Heparin d/c'd, will hold off chemical ppx using scd's -RANDA baker and SCDs Code Status -Level I, FULL RESUSCITATION STATUS -No prolonged measures Dispo-PT recommends inpatient rehab. will look for subacute rehab Continued [facility] stay due to: multiple IV medications needed Discharge planning: home
[2017-08-20] MEDS: POLYETHYLENE (MIRALAX) 17 GM PACK PO SCH ×2 (09:00→21:00)
[2017-08-20] MEDS: OXYBUTYNIN CHLORIDE 5 MG TABCR PO SCH (09:01)
[2017-08-20] MEDS: CLOPIDOGREL BISULFATE 75 MG TAB PO SCH (09:01)
[2017-08-20] MEDS: LOSARTAN POTASSIUM 50 MG TAB PO SCH (09:01)
[2017-08-20] MEDS: MULTIVITAMIN TAB PO SCH (09:01)
[2017-08-20] MEDS: METOPROLOL TARTRATE 25 MG TAB PO SCH ×2 (09:01→21:08)
[2017-08-20] MEDS: ASPIRIN 81 MG ECTAB PO SCH (09:02)
[2017-08-20] MEDS: ASCORBIC ACID 500 MG TAB PO SCH (09:02)
[2017-08-20] MEDS: ATORVASTATIN 40 MG TAB PO SCH (09:02)
[2017-08-20 15:04] VITALS: BP 119/74; PULSE 70; TEMP 36.3; O2SAT 96
[2017-08-20] MEDS: CETIRIZINE HCL 10 MG TAB PO SCH (21:08)
[2017-08-20] MEDS: CHOLECALCIFEROL 1000 INTER.UNIT TAB PO SCH (21:09)
[2017-08-20 22:03] VITALS: BP 121/66; PULSE 68; TEMP 36.6; O2SAT 94
[2017-08-21 05:48] LABS: HEMOGLOBIN 10.6 g/dL (12.0-16.0); MEAN CELL VOLUME 90.7 fL (80-100); MEAN CORPUSCULAR HGB CONC 33.1 g/dl (32-36); MEAN PLATELET VOLUME 8.9 fL (7.4-10.4); PLATELET COUNT 609 K/uL (130-400); RED CELL DISTRIBUTION WIDTH CV 13.5 % (11.5-14.5); RED CELL DISTRIBUTION WIDTH SD 44.6 fL (36.4-46.3)
[2017-08-21 06:18] LABS: ALBUMIN 2.6 gm/dl (3.4-5.0); CALCIUM 8.8 mg/dl (8.5-10.1); CREATININE 0.79 mg/dl (0.60-1.20); POTASSIUM 4.3 mmol/L (3.5-5.1)
[2017-08-21 07:04] VITALS: BP 140/81; PULSE 79; TEMP 36.7; O2SAT 91
--- NOTE | 2017-08-21 07:35 | Anesthesiology Progress Note ---
Anesthesia Post Op Note Date & Time Aug 21, 2017 at 07:35 Vital Signs Vital Signs Past 12 Hours Date Time Temp Pulse Resp B/P (MAP) Pulse Ox O2 Delivery O2 Flow Rate FiO2 08/21/17 07:04 36.7 79 16 140/81 (100) 91 Room Air 08/20/17 22:03 36.6 68 16 121/66 (84) 94 Room Air 08/20/17 20:00 Room Air Notes Mental Status: alert / awake / arousable, participated in evaluation Pt Amnestic to Procedure: Yes Nausea / Vomiting: adequately controlled Pain: adequately controlled Airway Patency, RR, SpO2: stable & adequate BP & HR: stable & adequate Hydration State: stable & adequate Anesthetic Complications: no major complications apparent
[2017-08-21] MEDS: CLOPIDOGREL BISULFATE 75 MG TAB PO SCH (08:28)
[2017-08-21] MEDS: ACETAMINOPHEN 325 MG TAB PO PRN ×2 (08:28→17:24)
[2017-08-21] MEDS: MULTIVITAMIN TAB PO SCH (08:28)
[2017-08-21] MEDS: POLYETHYLENE (MIRALAX) 17 GM PACK PO SCH ×2 (08:29→20:40)
[2017-08-21] MEDS: ASCORBIC ACID 500 MG TAB PO SCH (08:29)
[2017-08-21] MEDS: ASPIRIN 81 MG ECTAB PO SCH (08:29)
[2017-08-21] MEDS: LOSARTAN POTASSIUM 50 MG TAB PO SCH (08:29)
[2017-08-21] MEDS: OXYBUTYNIN CHLORIDE 5 MG TABCR PO SCH (08:29)
[2017-08-21] MEDS: METOPROLOL TARTRATE 25 MG TAB PO SCH ×2 (08:29→20:39)
[2017-08-21] MEDS: ATORVASTATIN 40 MG TAB PO SCH (08:29)
--- NOTE | 2017-08-21 09:47 | CARDIOLOGY PROGRESS NOTE ---
DATE: 08/21/2017 SUBJECTIVE: Mrs. Grace is resting comfortably in the bedside chair without complaints of chest pain or dyspnea. Right arm discomfort has improved. She was able to ambulate with the assistance of a walker yesterday without difficulty. She is anxious for hospital discharge. OBJECTIVE: VITAL SIGNS: Blood pressure is 140/80, with a regular pulse of 80, respiratory rate is 16, the patient is afebrile at 36.7 degrees Celsius, saturation 91% on room air. NECK: Supple, with full carotid upstrokes. There are no carotid bruits. Jugular venous pressure is flat at 90 degrees. There is no thyromegaly. CARDIOVASCULAR: Exam reveals a regular rhythm, with normal S1 and S2. Heart sounds are distant. No obvious murmurs. No S3. RESPIRATORY: Lungs are clear without rales, rhonchi, or wheezes. GASTROINTESTINAL: Abdomen is soft and nontender, without bruits. MUSCULOSKELETAL: Extremities reveal intact left radial pulse. Right wrist is dressed. There is trace pretibial edema. LABORATORY DATA: CBC notes a hemoglobin of 10.6, hematocrit 32.0, white count 10.1, platelet count 609,000. Electrolytes note a sodium of 136, potassium 4.3, chloride 103, bicarbonate 26, BUN 15, creatinine 0.79, glucose 94. IMPRESSION AND PLAN: 1. Pil-[id number] myocardial infarction, status post drug-eluting stent in the mid left anterior descending at the time of her presentation. Staged procedure deploying a left circumflex stent on the following day. Continue optimal medical management. 2. Status post repair of right radial artery pseudoaneurysm, per Dr. Villela. 3. Hypertension, controlled. 4. History of cerebrovascular accident. 5. Hypercholesterolemia. 6. Breast carcinoma, status post lumpectomy and XRT in 2006. 7. Hereditary spherocytosis. 8. Stable for hospital discharge from the cardiac perspective.
--- NOTE | 2017-08-21 10:56 | Progress Note ---
Progress Note Date of Service: Aug 21, 2017. Subjective Pain in right wrist improving Problem List Medical Problems: (1) Abnormal EKG Status: Acute (2) Bilateral arm pain Status: Acute (3) Chest pain Status: Acute (4) Dehydration Status: Acute (5) Diarrhea Status: Acute (6) Diarrhea Status: Acute (7) GI bleed Status: Acute (8) Headache Status: Acute (9) Hypertension Status: Acute (10) NSTEMI (non-ST elevated myocardial infarction) Status: Acute (11) Sinusitis Status: Acute (12) Upper abdominal pain Status: Acute Objective Vital Signs Vital Signs Past 12 Hours Date Time Temp Pulse Resp B/P (MAP) Pulse Ox O2 Delivery O2 Flow Rate FiO2 08/21/17 08:21 Room Air 08/21/17 07:04 36.7 79 16 140/81 (100) 91 Room Air Exam Incision dry and clean Moderate edema and ecchymosis present. Good distal flow to right hand Laboratory and Microbiology Results Past 24 Hours Test 08/21/17 05:33 Range/Units White Blood Count 10.10 4.8-10.8 K/uL Red Blood Count 3.53 4.2-5.4 M/uL Hemoglobin 10.6 12.0-16.0 g/dL Hematocrit 32.0 37-47 % Mean Corpuscular Volume 90.7 80-100 fL Mean Corpuscular Hemoglobin 30.0 25-34 pg Mean Corpuscular Hemoglobin Concent 33.1 32-36 g/dl RDW Standard Deviation 44.6 36.4-46.3 fL RDW Coefficient of Variation 13.5 11.5-14.5 % Platelet Count 609 130-400 K/uL Mean Platelet Volume 8.9 7.4-10.4 fL Sodium Level 136 136-145 mmol/L Potassium Level 4.3 3.5-5.1 mmol/L Chloride Level 103 98-107 mmol/L Carbon Dioxide Level 26 21-32 mmol/L Anion Gap 7.0 3-11 mmol/L Blood Urea Nitrogen 15 7-18 mg/dl Creatinine 0.79 0.60-1.20 mg/dl Est Creatinine Clear Calc Drug Dose 53.6 ml/min Estimated GFR () 81.9 Estimated GFR (Non- 70.7 BUN/Creatinine Ratio 19.2 10-20 Random Glucose 94 70-99 mg/dl Calcium Level 8.8 8.5-10.1 mg/dl Total Bilirubin 0.5 0.2-1 mg/dl Direct Bilirubin 0.2 0-0.2 mg/dl Aspartate Amino Transf (AST/SGOT) 26 15-37 U/L Alanine Aminotransferase (ALT/SGPT) 22 12-78 U/L Alkaline Phosphatase 96 45-117 U/L Total Protein 7.0 6.4-8.2 gm/dl Albumin 2.6 3.4-5.0 gm/dl Imp: Post right radial artery pseudoaneurysm repair. Plan: Doing well from a vascular standpoint. No restrictions on use of the right arm and hand. Will follow up in the office. Thank you very much for letting me participate in the care of this patient.
--- NOTE | 2017-08-21 14:53 | Hospitalist Progress Note ---
Hospitalist Progress Note Date of Service Aug 21, 2017. Subjective Pt evaluation today including: conversation w/ patient, physical exam, chart review, lab review, review of inpatient medication list Patient reports feeling fatigued but otherwise well. She states her right wrist pain continues to improve and denies any pain at rest. She denies any chest pain or shortness of breath. The patient denies fevers, chills, sweats, chest pain, palpitations, claudication, cough, wheezing, shortness of breath, nausea, vomiting, abdominal pain, dysuria, hematuria, urinary retention, paralysis, weakness, numbness and tingling. Additional Comments: See HPI for pertinent positives and negatives. All other systems reviewed and negative. Objective Vital Signs Date Time Temp Pulse Resp B/P (MAP) Pulse Ox O2 Delivery O2 Flow Rate FiO2 08/21/17 12:03 Room Air 08/21/17 08:21 Room Air 08/21/17 07:04 36.7 79 16 140/81 (100) 91 Room Air 08/20/17 22:03 36.6 68 16 121/66 (84) 94 Room Air 08/20/17 20:00 Room Air 08/20/17 16:15 Room Air 08/20/17 15:04 36.3 70 16 119/74 (89) 96 Room Air Physical Exam Notes: General appearance: +Obese. Well-developed, well-nourished, no apparent distress Head: Normocephalic, atraumatic Eyes: Normal inspection, PERRL, EOMI ENT: Normal ENT inspection, hearing grossly normal, pharynx normal Neck: Supple, no JVD, trachea midline Respiratory/Chest: Lungs clear to auscultation, normal breath sounds, no respiratory distress Cardiovascular: Regular rate & rhythm, no gallop, no murmur Abdomen/GI: +Colostomy LLQ. Normal bowel sounds, soft Extremities/Musculoskeletal: +Right wrist access site TTP. No calf tenderness , no pedal edema Neurological/Psych: +Right leg strength 4/5, residual from prior CVA. Alert, normal mood/affect, oriented x 3 Skin: Normal color, warm/dry, no rash Laboratory Results Last 24 Hours Test 08/21/17 05:33 White Blood Count 10.10 K/uL Red Blood Count 3.53 M/uL Hemoglobin 10.6 g/dL Hematocrit 32.0 % Mean Corpuscular Volume 90.7 fL Mean Corpuscular Hemoglobin 30.0 pg Mean Corpuscular Hemoglobin Concent 33.1 g/dl RDW Standard Deviation 44.6 fL RDW Coefficient of Variation 13.5 % Platelet Count 609 K/uL Mean Platelet Volume 8.9 fL Sodium Level 136 mmol/L Potassium Level 4.3 mmol/L Chloride Level 103 mmol/L Carbon Dioxide Level 26 mmol/L Anion Gap 7.0 mmol/L Blood Urea Nitrogen 15 mg/dl Creatinine 0.79 mg/dl Est Creatinine Clear Calc Drug Dose 53.6 ml/min Estimated GFR () 81.9 Estimated GFR (Non- 70.7 BUN/Creatinine Ratio 19.2 Random Glucose 94 mg/dl Calcium Level 8.8 mg/dl Total Bilirubin 0.5 mg/dl Direct Bilirubin 0.2 mg/dl Aspartate Amino Transf (AST/SGOT) 26 U/L Alanine Aminotransferase (ALT/SGPT) 22 U/L Alkaline Phosphatase 96 U/L Total Protein 7.0 gm/dl Albumin 2.6 gm/dl Assessment and Plan 82 y/o female with a history of HTN, HLD, CVA about 5 months ago, CKD stage III , neuropathy, h/o breast cancer, partial colectomy, and GERD who presented to the ED on 08/10 with chest pain and left arm pain. Pt afebrile, VSS. Head CT negative for acute disease. KUB negative. EKGs in ED without acute ischemic changes. Troponin was initially 0.034, but patient then complained of chest pain, ongoing left arm pain. Repeat troponin 1.37. NSTEMI--resolving -Admit to telemetry. Transferred to med/surg 08/19 -Cardiology consulted, appreciate recs: NSTEMI, continue medical optimization. Stable from cardiac standpoint. -Cardiac cath 08/10 showed severe multivessel CAD, most notably mid LAD with 90-95 % stenosis, mid circumflex 90%. Successful PCI of mid LAD and 1 JOHN placed -Repeat cardiac cath 08/11, 2nd stent placed in proximal to mid LAD overlapping w/ 1st stent, one stent placed in circumflex -Heparin drip d/c'd -Troponin peaked at 17.9, now trending down -Echocardiogram shows EF 55-60%. Apical akinesis, new from previous study. Mild mitral regurgitation. No thrombus seen. -D/C nitropaste -Continue Lipitor 40 mg PO qd, monitor LFTs. Continue ASA -Continue Lopressor 25 mg PO BID per cardio -Lipid panel shows triglycerides 214, total cholesterol 163, non HDL 138 Right wrist pseudoaneurysm--improving -S/p vascular repair w/Dr. Villela on 08/18 -Vascular surgery following, appreciate recs: No restrictions on use of the right arm and hand. Will follow up in the office. 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
[2017-08-21 15:34] VITALS: BP 118/76; PULSE 68; TEMP 36.2; O2SAT 97
[2017-08-21] MEDS: CHOLECALCIFEROL 1000 INTER.UNIT TAB PO SCH (20:39)
[2017-08-21] MEDS: CETIRIZINE HCL 10 MG TAB PO SCH (20:40)
[2017-08-21 23:25] VITALS: BP 129/72; PULSE 70; TEMP 36.6; O2SAT 96
[2017-08-22] MEDS: ACETAMINOPHEN 325 MG TAB PO PRN (04:02)
[2017-08-22 07:51] VITALS: BP 128/66; PULSE 76; TEMP 36.9; O2SAT 97
[2017-08-22 08:21] VITALS: O2SAT 97
[2017-08-22] MEDS ORDERED: LPT40 PO (09:13)
[2017-08-22] MEDS ORDERED: ASPI-461 PO (09:13)
[2017-08-22] MEDS ORDERED: LPR25 PO (09:13)
--- NOTE | 2017-08-22 09:28 | Discharge Instructions ---
Discharge Instructions Date of Service Aug 22, 2017. Admission Reason for Admission: Nstemi Discharge Discharge Diagnosis / Problem: Non-ST elevation myocardial infarction Discharge Goals Goal(s): Decrease discomfort, Improve function, Improve disease control, Learn about illness, Diagnostic testing, Therapeutic intervention Activity Recommendations Activity Level: Assistance Required Therapies: Physical Therapy, Occupational Therapy . Additional Information Patient informed of condition: Yes Advance Directives: Yes DNR: No Level of Care: Skilled (subacute rehab) Communicable Disease: No Prognosis: Stable Instructions / Follow-Up Instructions / Follow-Up The patient was admitted to the hospital with left arm pain and an elevated troponin. She was found to have a non-ST elevation myocardial infarction ( NSTEMI), or heart attack. She was taken urgently for cardiac catheterization which revealed severe multivessel coronary artery disease. A stent was placed in the mid left anterior descending artery. A repeat catheterization was done the following day, and a second stent was placed in the proximal to mid LAD and another stent in the circumflex artery. Following catheterization, the patient developed a right radial access hematoma. This continued to worsen, and ultrasound revealed a pseudoaneurysm. This was repaired by vascular surgery. The patient also developed hyponatremia while inpatient but this resolved with a fluid restriction. The patient is now recovering and medically stable for discharge to a halfway facility for subacute rehab. Medications: *The patient is to take aspirin 81 mg daily in addition to her clopidogrel ( Plavix) for at least one year due to the stents that were placed. *The patient has been started on metoprolol tartrate (Lopressor) 25 mg twice a day. *The patient has been started on atorvastatin (Lipitor) 40 mg daily. The patient has a history of liver sensitivity while on a statin, however liver function tests have remained within normal limits while on atorvastatin in the hospital. Would recommend periodic liver function tests for monitoring while on statin. *Patient's Zetia has been discontinued. *Continue other home medications as prescribed. Follow up: *Please have the patient follow up with her primary care provider within 1 week of discharge. *Please have the patient follow up with [facility] in 1-2 weeks. *Please have the patient follow up with Dr. Villela of vascular surgery in 2 weeks. Please seek medical attention if patient experiences fevers, chills, sweats, dizziness/lightheadedness, loss of consciousness, chest pain/left arm pain, shortness of breath, nausea, vomiting, numbness or tingling. Activation of Emergency Medical System: Call 911, immediately, if you experience any of the following: Warning Signs and Symptoms of a Heart Attack: * Chest pain or left arm pain that is not relieved by medication * Shortness of breath Otherwise, call your doctor immediately if you have: * Lightheadedness, dizziness, or fainting * Feeling of irregular heartbeat or fast pulse Home Care: * Take your medications exactly as directed. Don't skip doses. * Remember that recovery after a heart attack takes time. Plan to rest for at least 4-8 weeks while you recover. Then return to normal activity when your doctor says it's okay. * Ask your doctor about joining a heart rehabilitation program. * Tell your doctor if you are feeling depressed. Feelings of sadness are common after a heart attack, but it is important that you speak to someone if you are feeling overwhelmed by these feelings. * If you are having chest pain, call 911 for an ambulance. Do NOT drive yourself to the hospital. * Ask your family members to learn CPR. * Learn to take your own blood pressure and pulse. Keep a record of your results. Ask your doctor when you should seek emergency medical attention. He or she will tell you which blood pressure reading is dangerous. Lifestyle Changes: * Maintain a healthy weight. Get help to lose any extra pounds. * Cut back on salt. 1. Limit canned, dried, packaged, and fast foods. 2. Don't add salt to your food. 3. Season foods with herbs instead of salt when you cook. * Break the smoking habit. Enroll in a stop-smoking program to improve your chances of success. * Limit fatty foods. * Check your lipid levels regularly. (Your doctor can show you how to do this. ) * Build up your activity according to your doctor's recommendation. * Ask your doctor when it's okay to resume sexual activity. * Try to manage stress. Follow Up: It is important for you to keep your follow up appointments with your medical provider. Current Hospital Diet Patient's current hospital diet: AHA Diet (Heart Healthy) Discharge Diet Recommended Diet: AHA Diet (Heart Healthy) Fluid Restriction: 2000 ml (8 cups) Procedures Procedures Performed: Cardiac catheterization x 2, cardiac stents placed (3), Repair Right Radial Artery Pseudo Aneurysm Pending Studies Studies pending at discharge: no Physician Orders On Transfer Special Precautions: Fall precautions Dressing Changes: Daily dressing changes to right wrist Vital Signs: Routine Laboratory Results Lipid Panel Test 08/11/17 05:30 Range/Units Triglycerides Level 214 H 0-150 mg/dl Cholesterol Level 163 0-200 mg/dl HDL Cholesterol 25 mg/dl Cholesterol/HDL Ratio 6.5 LDL Cholesterol, Calculated 95 mg/dl Medical Emergencies . Who to Call and When: Medical Emergencies: If at any time you feel your situation is an emergency, please call 911 immediately. . Non-Emergent Contact Non-Emergency issues call your: Primary Care Provider, Automobile Sales Representative, Surgeon Call Non-Emergent contact if: you have a fever, your pain is not controlled, your pain is worsening, your pain is unusual for you, your pain is concerning you, wound has increased drainage, wound has increased redness, wound has increased pain, you have any medication questions . Past History Medical & Surgical History: (1) NSTEMI (non-ST elevated myocardial infarction) . "Provider Documentation" section prepared by Sarahi Washington. . Core Measure Problem Core Measures: AMI AMI Core Measures Reason no ASA as I/P: Treatment provided - N/A Reason no ASA at D/C: Treatment provided - N/A Reason no statin as I/P: Treatment provided - N/A Reason no statin at D/C: Treatment provided - N/A
[2017-08-22] MEDS: ASPIRIN 81 MG ECTAB PO SCH (09:39)
[2017-08-22] MEDS: OXYBUTYNIN CHLORIDE 5 MG TABCR PO SCH (09:39)
[2017-08-22] MEDS: ASCORBIC ACID 500 MG TAB PO SCH (09:39)
[2017-08-22] MEDS: ATORVASTATIN 40 MG TAB PO SCH (09:39)
[2017-08-22] MEDS: LOSARTAN POTASSIUM 50 MG TAB PO SCH (09:39)
[2017-08-22] MEDS: MULTIVITAMIN TAB PO SCH (09:39)
[2017-08-22] MEDS: METOPROLOL TARTRATE 25 MG TAB PO SCH (09:39)
[2017-08-22] MEDS: CLOPIDOGREL BISULFATE 75 MG TAB PO SCH (09:39)
[2017-08-22] MEDS: POLYETHYLENE (MIRALAX) 17 GM PACK PO SCH (09:40)
--- NOTE | 2017-08-22 09:42 | Discharge Summary ---
Discharge Summary Date of Service Aug 22, 2017. Discharge Summary Admission Date: Aug 10, 2017 at 16:15 Discharge Date: Aug 22, 2017 Discharge Disposition: senior living facility ([facility] for subacute rehab) Principal Diagnosis: NSTEMI, right wrist pseudoaneurysm Problems/Secondary Diagnoses: HTN, HLD, CVA about 5 months ago, CKD stage III, neuropathy, h/o breast cancer, h/o diverticulitis s/p partial colectomy, urinary incontinence, GERD Immunizations: Have You Had Influenza Vaccine: N/A History of Tetanus Vaccine?: Unknown History of Pneumococcal: Yes History of Hepatitis B Vaccine: Unknown Procedures: Cardiac cath 08/10: -- PCI -- Antithrombotic therapy: Heparin, Clopidogrel Procedure: LM cannulated with EBU 3.5 guide Hose Stripper 50 wire passed across lesion into distal vessel Mid LAD lesion predilated with 2.5 compliant balloon Dilated lesion stented with 2.5 x 22 Thaddeus JOHN Stent post-dilated with 2.5 noncompliant balloon IC vasodilators administered for spasm Post procedure JA 3 flow, stent well expanded with minimal residual stenosis and no apparent cardiac complications. Arterial Closure: TR Band Summary: 1. Successful PCI of mid LAD with single JOHN (2.5 x 22 Bivins). 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 Cardiac cath 08/11: -- PCI -- Antithrombotic therapy: Heparin, Clopidogrel Procedure: LM cannulated with EBU 3.5 guide Hose Stripper 50 wire passed across lesion into distal vessel Prowater wire placed into large OM2 Mid circumflex lesion predilated with 3.0 compliant balloon Dilated lesion stented with 4.5 x 18 Thaddeus JOHN Stent post-dilated with 4.5 noncompliant balloon Wires removed and whisper wire placed down LAD IVUS used to assess previously placed mid LAD stent and haziness just proximal to stent IVUS showed underexpanded proximal aspect of stent with moderate to severe, calcified disease in the early-mid segment. Proximal to mid segments pre-dilated with 2.5 balloon. Proximal to mid 3.0 x 18 Bivins JOHN placed Stent post-dilated with 3.0 NC balloon to high atmospheres. IC vasodilators administered for spasm IVUS revealed well expanded stent and apparent proximal vessel complications. Post procedure JA 3 flow, stent well expanded with minimal residual stenosis and no apparent cardiac complications. Arterial Closure: TR Band (hematoma noted proximal to TR Band - 2nd band placed) . Summary: 1. Successful PCI of mid circumflex with single JOHN (4.5 x 18 Thaddeus). 2. Successful PCI of proximal to mid LAD with single JOHN (3.0 x 18 Thaddeus) overlapping with proximal aspect of prior stent placed yesterday. Recommendations: To PCU for continued monitoring Continue dual-antiplatelet therapy for at least 1 year Continue statin, and ASCVD risk factor modification Consult cardiac Rehab Echocardiogram: * -- Conclusions -- * 1. Normal LV size, mild concentric LVH. * 2. LVEF 55-60%. Apical akinesis. No LV thrombus. * 3. Normal RV size and function. * 4. Mild aortic regurgitation. * 5. Compared with prior study on 05/09/2017: Apical akinesis is new. Right arterial Doppler ultrasound: IMPRESSION: 3.8 cm pseudoaneurysm of the distal right radial artery. Pseudoaneurysm repair: Indications Ms. Grace is an 82-year-old woman who I recently had an HI and diagnostic and interventional heart catheterizations via her right radial artery. Post procedurally she was noted to have a large pulsating mass at the entry site. Studies performed showed a 3cm pseudoaneurysm of the right radial artery. Description of Procedure The patient's right arm was prepped and draped in a sterile fashion. Ten cc's of local anesthetic were administered subcutaneously. An incision was made over the lateral aspect of the forearm directly above the right radial artery pseudoaneurysm. An ellipse of tissue was removed where the skin above had necrosed. We then dissected down to the radial artery, entering the pseudoaneurysm and removing organized thrombus within it. The artery was clamped proximally and distally using angled DeBakey clamps. It was then cleaned to identify 3 distinct holes within the anterior wall of the artery. The arteriotomies were then sutured with 7-0 Prolene. Hemostasis was achieved with thrombin and Gelfoam application. This was then removed and the skin reapproximated with brandon. The patient tolerated the procedure well. I attest to the content of the Intraoperative Record and any orders documented therein. Any exceptions are noted below. Consultations: Cardiology Vascular surgery Medication Reconciliation New Medications: Aspirin (Aspirin) 81 Mg Tab 81 MG PO QAM for 30 Days, #30 TAB Atorvastatin (Lipitor) 40 Mg Tab 40 MG PO QAM for 30 Days, #30 TAB Metoprolol Tartrate (Lopressor) 25 Mg Tab 25 MG PO BID for 30 Days, #60 TAB Continued Medications: Ascorbic Acid (Vitamin C) 500 Mg Tab 500 MG PO DAILY Calcium (Calcium) 600 Mg Tab 600 MG PO Q2D Cetirizine (Zyrtec) 10 Mg Tab 5 MG PO QPM, TAB Cholecalciferol (Vitamin D 1000 Unit) 1,000 Unit Cap 2000 INTER.UNIT PO QPM, CAP Clopidogrel Bisulfate (Clopidogrel) 75 Mg Tab 75 MG PO DAILY Losartan Potassium (Cozaar) 50 Mg Tab 50 MG PO DAILY, TAB Multivitamin (Multivitamin) Tab 1 TAB PO DAILY, 0 Refills Oxybutynin Chloride (Oxybutynin Chloride Er) 5 Mg Tab 5 MG PO DAILY Polyethylene Glycol 3350 (Miralax) 1 Pow Pow 17 GM PO DAILY PRN for Constipation, GM Probiotic Product (Probiotic) 1 Cap Cap 1 CAP PO QPM Discontinued Medications: Amoxicillin (Amoxil) 500 Mg Cap 500 MG PO BID for 7 Days, #14 CAP Ezetimibe (Zetia) 10 Mg Tab 10 MG PO QPM, TAB Hydrocodone/Acetaminophen 5MG/325MG (Pax 5MG/325MG) Tab 0.5 TABLET PO HS PRN for Pain, TAB PRN PAIN Discharge Exam Patient reports feeling well. She states her right wrist pain continues to improve every day. She denies any further recurrence of chest pain or left arm pain. She denies any shortness of breath. Her appetite continues to improve. She is moving her bowels. The patient denies fevers, chills, sweats, chest pain , palpitations, claudication, cough, wheezing, shortness of breath, nausea, vomiting, abdominal pain, dysuria, hematuria, urinary retention, paralysis, acute weakness, numbness and tingling. Constitutional: No fever, No chills, No sweats Eyes: No worsening of vision, No eye pain, No diplopia ENT: No hearing loss, No nasal symptoms, No trouble swallowing Respiratory: No cough, No wheezing, No shortness of breath Cardiovascular: No chest pain, No claudication, No palpitations Abdomen: No pain, No nausea, No vomiting Musculoskeletal: No joint pain, No muscle pain, No swelling Genitourinary - Female: No dysuria, No urinary retention, No hematuria Neurologic: No paralysis, No acute weakness, No numbness/tingling Integumentary: No rash, No itch, No color change General appearance: +Obese. Well-developed, well-nourished, no apparent distress Head: Normocephalic, atraumatic Eyes: Normal inspection, PERRL, EOMI ENT: Normal ENT inspection, hearing grossly normal, pharynx normal Neck: Supple, no JVD, trachea midline Respiratory/Chest: Lungs clear to auscultation, normal breath sounds, no respiratory distress Cardiovascular: Regular rate & rhythm, no gallop, no murmur Abdomen/GI: +Colostomy LLQ. Normal bowel sounds, soft Extremities/Musculoskeletal: +Right wrist access site TTP, edema improved. No calf tenderness, no pedal edema Neurological/Psych: +Right leg strength 4/5, residual from prior CVA. Alert, normal mood/affect, oriented x 3 Skin: Normal color, warm/dry, no rash Hospital Course 82 y/o female with a history of HTN, HLD, CVA about 5 months ago, CKD stage III , neuropathy, h/o breast cancer, partial colectomy, and GERD who presented to the ED on 08/10 with chest pain and left arm pain. Pt afebrile, VSS. Head CT negative for acute disease. KUB negative. EKGs in ED without acute ischemic changes. Troponin was initially 0.034, but patient then complained of chest pain, ongoing left arm pain. Repeat troponin 1.37. NSTEMI--resolving -Admit to telemetry. Transferred to med/surg 08/19 -Cardiology consulted, appreciate recs: NSTEMI, continue medical optimization. Stable from cardiac standpoint. -Cardiac cath 08/10 showed severe multivessel CAD, most notably mid LAD with 90-95 % stenosis, mid circumflex 90%. Successful PCI of mid LAD and 1 JOHN placed -Repeat cardiac cath 08/11, 2nd stent placed in proximal to mid LAD overlapping w/ 1st stent, one stent placed in circumflex -Heparin drip d/c'd -Troponin peaked at 17.9, now trending down -Echocardiogram shows EF 55-60%. Apical akinesis, new from previous study. Mild mitral regurgitation. No thrombus seen. -D/C nitropaste -Continue Lipitor 40 mg PO qd, monitor LFTs. Continue ASA and Plavix -Continue Lopressor 25 mg PO BID per cardio -Lipid panel shows triglycerides 214, total cholesterol 163, non HDL 138 Right wrist pseudoaneurysm--improving -S/p vascular repair w/Dr. Villela on 08/18 -Vascular surgery following, appreciate recs: No restrictions on use of the right arm and hand. Will follow up in the office. 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 Discharge Instructions Please refer to the electronic Patient Visit Report (Discharge Instructions) for additional information. Follow-Up PCP Cardiology Vascular surgery Additional Copies To Madai Leonard, SkipPKatie
[2017-08-22 10:00] VITALS: BP 128/66; PULSE 76; TEMP 36.9; O2SAT 97
--- NOTE | 2017-08-22 10:37 | CARDIOLOGY PROGRESS NOTE ---
DATE: 08/22/2017 CARDIOLOGY PROGRESS NOTE SUBJECTIVE: Ms. Grace is resting comfortably in bedside chair without complaints of chest pain or dyspnea. Right wrist discomfort improved. OBJECTIVE: VITAL SIGNS: Blood pressure 128/66 with a regular pulse of 76. Respiratory rate is 18 and the patient is afebrile at 36.9 degrees Celsius. Saturation 97% on room air. NECK: Supple with full carotid upstrokes. No carotid bruits. Jugular venous pressure is flat at 90 degrees. There is no thyromegaly. CARDIOVASCULAR: Reveals a regular rhythm with a normal S1 and S2. Heart sounds are distant. No obvious murmurs. LUNGS: Clear without rales, rhonchi, or wheezes. ABDOMEN: Soft and nontender without bruits. EXTREMITIES: Reveal intact radial artery pulse on the left. Right wrist is dressed. Trace pretibial edema. DATA: Electrolytes note a sodium of 136, potassium 4.3, chloride 103, bicarbonate 26, BUN 15, creatinine 0.79, glucose 94. IMPRESSION AND PLAN: 1. Non-ST elevation myocardial infarction -- status post drug-eluting stent in the mid left anterior descending at the time of her presentation. She had a left circumflex stent placed on the following day. Continue medical management. 2. Status post right radial artery pseudoaneurysm repair -- per Dr. Villela. 3. Hypertension -- controlled. 4. History of cerebrovascular accident. 5. Hypercholesterolemia. 6. Breast carcinoma -- status post lumpectomy and XRT in 2006. 7. Hereditary spherocytosis. 8. Disposition -- stable for hospital discharge from a cardiac perspective.
== END 2017-08-22 10:46 | DRG 247 ==
LOC: EDBD 10:22 → C.EDC 10:23 → C.2T 16:15 → ENRESERV 16:45 → C.MSW 08-19 15:25
PROVIDERS: ADMIT Hospitalist; ATTEND Hospitalist
PROC: 4A023N7 Measurement of Cardiac Sampling and Pressure, Left Heart, Percutaneous Approach (ICD-10-PCS; 2017-08-10)
PROC: B2111ZZ Fluoroscopy of Multiple Coronary Arteries using Low Osmolar Contrast (ICD-10-PCS; 2017-08-10)
PROC: 3E033PZ Introduction of Platelet Inhibitor into Peripheral Vein, Percutaneous Approach (ICD-10-PCS; principal; 2017-08-10 16:51)
PROC: 027034Z Dilation of Coronary Artery, One Artery with Drug-eluting Intraluminal Device, Percutaneous Approach (ICD-10-PCS; principal; 2017-08-10 16:51)
PROC: 027034Z Dilation of Coronary Artery, One Artery with Drug-eluting Intraluminal Device, Percutaneous Approach (ICD-10-PCS; 2017-08-11)
PROC: B240ZZ3 Ultrasonography of Single Coronary Artery, Intravascular (ICD-10-PCS; 2017-08-11)
PROC: 0HBDXZZ Excision of Right Lower Arm Skin, External Approach (ICD-10-PCS; 2017-08-18)
PROC: 03CB0ZZ Extirpation of Matter from Right Radial Artery, Open Approach (ICD-10-PCS; 2017-08-18)
DX: I21.4 Non-ST elevation (NSTEMI) myocardial infarction (principal); I97.630 Postprocedural hematoma of a circulatory system organ or structure following a cardiac catheterization; I74.2 Embolism and thrombosis of arteries of the upper extremities; I69.351 Hemiplegia and hemiparesis following cerebral infarction affecting right dominant side; I25.110 Atherosclerotic heart disease of native coronary artery with unstable angina pectoris; I72.1 Aneurysm of artery of upper extremity; D58.0 Hereditary spherocytosis; Z96.651 Presence of right artificial knee joint; Z88.1 Allergy status to other antibiotic agents; Z88.5 Allergy status to narcotic agent; Z85.3 Personal history of malignant neoplasm of breast; N18.3 Chronic kidney disease, stage 3 (moderate); K21.9 Gastro-esophageal reflux disease without esophagitis; R32 Unspecified urinary incontinence; Z93.3 Colostomy status; Z92.3 Personal history of irradiation; I12.9 Hypertensive chronic kidney disease with stage 1 through stage 4 chronic kidney disease, or unspecified chronic kidney disease; E78.5 Hyperlipidemia, unspecified; Z82.49 Family history of ischemic heart disease and other diseases of the circulatory system; Y84.0 Cardiac catheterization as the cause of abnormal reaction of the patient, or of later complication, without mention of misadventure at the time of the procedure; Y92.230 Patient room in hospital as the place of occurrence of the external cause

== ENCOUNTER 2017-08-25 16:09 | Emergency (ER) | payer OTHER, BC ==
[~2017-08-25] VITALS: Ht 152.4 cm; Wt 80.0 kg
[~2017-08-25 16:09] MED LIST changes: -AMOX500C3 PO; +ASPI-461 PO; -BNT20 PO; -EZET10TA63 PO; -HYDR-5688 PO; -HYG25 PO; +LPR25 PO; +LPT40 PO; +OXYB5TAB PO; +PLV75 PO; -ZNT150 PO
[2017-08-25 16:21] VITALS: Ht 152.4 cm; Wt 80.0 kg
[2017-08-25] MEDS ORDERED: HYDROCODONE/ACETAMIN 5/325MG TAB PO STA (17:21)
[2017-08-25 17:56] VITALS: BP 130/71; PULSE 68; TEMP 36.7; O2SAT 97
--- NOTE | 2017-09-28 16:18 | EMERGENCY ROOM VISIT NOTE ---
History Report prepared by Amisha: Raissa Hsieh Under the Supervision of: Dr. Anette Garza D.O. First contact with patient: 17:01 Chief Complaint: OTHER COMPLAINT Stated Complaint: HEART History of Present Illness The patient is an 82 year old female who presents to the Emergency Room with complaints of worsening swelling of her right arm starting today. The patient states that she had a pseudoaneurysm following a cardiac catheterization and stent placement. She states that Dr. Villela- Thoracic Surgeon performed a surgery a week ago to take care of the situation. She states that she was doing well after the surgery, but today started having increased swelling in her arm and pain. She describes the pain as a "thumping." She states that she did not have the appointment with Dr. Villela's office today, but scheduled it due to the pain. The patient states that they sent her here because they were concerned by the way she was feeling today and how she was holding her chest. She reports that she was feeling dizzy, weak, and fatigued earlier today. The patient states that her dizziness was like the room was spinning and only lasted for seconds while she was sitting. She notes that she was not having any chest discomfort and is unsure why she was holding her chest. The patient states that these symptoms have passed. She notes that she has been taking Tylenol for her arm pain and it has helped. She states that she has not been taking her prescribed pain medication. The patient denies calf pain, fevers, chills, leg swelling, headache, blurry vision, double vision, chest pain, palpitations, and ever having dizziness before. The patient notes that she takes Aspirin and Plavix. Source of History: patient Onset: today Position: arm (right) Quality: other ("thumping", swelling) Timing: worsening Modifying Factors (Relieving): tylenol Associated Symptoms: + fatigue, + weakness, No fevers, No chills, No headache, No chest pain Note: The patient complains of dizziness. The patient denies calf pain, leg swelling, blurry vision, double vision, and palpitations. Review of Systems See HPI for pertinent positives & negatives. A total of 10 systems reviewed and were otherwise negative. Past Medical & Surgical Medical Problems: (1) Breast cancer (2) Constipation (3) Diarrhea (4) Diverticulitis (5) Gastroenteritis (6) GI bleeding (7) HEREDITARY SPHEROCYTOSIS (8) Hernia (9) History of gallbladder surgery (10) Hypertensive crisis (11) Low back pain (12) Nausea & vomiting (13) Pancreatitis (14) Perforated bowel (15) Pseudoaneurysm (16) Right TKR 07/2010 Surgical Problems: (1) Colostomy in place (2) History of section (3) History of lumpectomy (4) History of splenectomy Family History Cancer (breast, colon) Diabetes mellitus Hypertension Social History Smoking Status: Never Smoker Alcohol Use: none Drug Use: none Marital Status: Housing Status: lives with family Occupation Status: retired Current/Historical Medications Scheduled Ascorbic Acid (Vitamin C), 500 MG PO DAILY Aspirin (Aspirin), 81 MG PO QAM Atorvastatin (Lipitor), 40 MG PO QAM Calcium (Calcium), 600 MG PO Q2D Cetirizine (Zyrtec), 5 MG PO QPM Cholecalciferol (Vitamin D 1000 Unit), 2,000 INTER.UNIT PO QPM Clopidogrel Bisulfate (Clopidogrel), 75 MG PO DAILY Losartan Potassium (Cozaar), 50 MG PO DAILY Metoprolol Tartrate (Lopressor), 25 MG PO BID Multivitamin (Multivitamin), 1 TAB PO DAILY Oxybutynin Chloride (Oxybutynin Chloride Er), 5 MG PO DAILY Probiotic Product (Probiotic), 1 CAP PO QPM Scheduled PRN Polyethylene Glycol 3350 (Miralax), 17 GM PO DAILY PRN for Constipation Allergies Coded Allergies: Vancomycin (Verified Allergy, Intermediate, rash, 08/25/17) Diphenhydramine (Verified Allergy, Mild, Redness, 08/25/17) Amoxicillin (Verified Allergy, Unknown, bad reaction/glands swollen puffed up, 08/25/17) Clavulanic Acid (Verified Allergy, Unknown, 08/25/17) Codeine (Verified Allergy, Unknown, 08/25/17) Physical Exam Vital Signs Date Time Temp Pulse Resp B/P (MAP) Pulse Ox O2 Delivery O2 Flow Rate FiO2 08/25/17 17:56 36.7 68 18 130/71 97 08/25/17 16:21 36.7 68 18 130/71 97 Room Air Physical Exam GENERAL: alert, well appearing, well nourished, no distress, non-toxic EYE EXAM: normal conjunctiva, PERRL and EOM's grossly intact OROPHARYNX: no exudate, no erythema, lips, buccal mucosa, and tongue normal and mucous membranes are moist NECK: supple, no nuchal rigidity, no adenopathy, non-tender LUNGS: Clear to auscultation. Normal chest wall mechanics HEART: no murmurs, S1 normal and S2 normal ABDOMEN: abdomen soft, non-tender, normo-active bowel sounds, no masses, no rebound or guarding. BACK: Back is symmetrical on inspection and there is no deformity, no midline tenderness, no CVA tenderness. SKIN: no rashes and no bruising UPPER EXTREMITIES: Right distal forearm on the ventral aspect has a 4 cm incision with stapled intact. Small amount of dried blood noted. No dehiscence. No active bleeding or drainage. No surrounding erythema. Mild edema noted at the incision and just proximally. There is a strong radial pulse distal to the incision. Normal pulse motor sensory of the right hand. Mild edema to the right hand noted. LOWER EXTREMITIES: 1+ pitting edema bilaterally. NEURO EXAM: Normal sensorium, cranial nerves II-XII grossly intact, normal speech, no gross weakness of arms, no gross weakness of legs. Medical Decision & Procedures Medications Administered Medications (Trade) Dose Ordered Sig/Jonas Route Start Time Stop Time Status Last Admin Dose Admin Acetaminophen/ Hydrocodone Bitart ([place] 5/325 Tab) 1 tab NOW STAT PO 08/25/17 17:21 08/25/17 17:22 DC 08/25/17 17:39 0.5 TAB ED Course 1705: The patient was evaluated in room A11B. A complete history and physical exam was performed. Patient is refusing additional evaluating for any other symptoms. She would now like to try one of her prescribed PRN medications for her surgery. 1721: Ordered [place] 5/325 Tab 1 tab PO. 1732: I reevaluated the patient as she was asking for me. She wanted to know if Dr. Villela has called back yet. 1734: I discussed the patient's case with Dr. Villela- Thoracic Surgeon. I discussed the patient's presentation and exam findings. He does not feel that the patient requires additional labs or imaging for the incision at this time. He wants the patient to follow up in the office as scheduled. 1740: Upon reevaluation, the patient is feeling better. I discussed the findings and the treatment plan with the patient. She verbalizes agreement and understanding. The patient was discharged home. Medical Decision Differential diagnosis includes etiologies such as benign positional vertigo, dehydration, hypovolemia, anemia, tumor, infection, hypoglycemia, electrolyte abnormalities, cardiac sources, intracerebral event, toxicologic, neurologic, as well as others were entertained. Patient here well-appearing and referred to us by the office. Patient refused any additional labs, EKG, or imaging. Stated she wanted to see Dr. Villela in the emergency room for evaluation of her edema and ecchymosis related to her recent procedure and possible wound. A call was placed to Dr. Villela did eventually call back and we discussed her case. He felt she was stable to follow-up as an outpatient in the office. Patient verbalized understanding of all this and was agreeable with the plan. I cautioned patient again on her symptoms, possible other etiology, need for additional evaluation and testing and she declined. Patient discharged in the care of her in a wheelchair. Medication Reconcilliation Current Medication List: was personally reviewed by me Blood Pressure Screening Patient's blood pressure: Normal blood pressure Blood pressure disposition: Did not require urgent referral Consults Time Called: 1716 Consulting Physician: Dr. Villela- Thoracic Surgeon Returned Call: [phone] I discussed the patient's case with Dr. Villela- Thoracic Surgeon. I discussed the patient's presentation and exam findings. He does not feel that the patient requires additional labs or imaging for the incision at this time. He wants the patient to follow up in the office as scheduled. Impression Primary Impression: Visit for wound check Additional Impression: Swelling of right upper extremity Scribe Attestation The scribe's documentation has been prepared under my direction and personally reviewed by me in its entirety. I confirm that the note above accurately reflects all work, treatment, procedures, and medical decision making performed by me. Departure Information Dispostion Home / Self-Care Referrals Madai Leonard, C.R.N.P. (PCP) Forms HOME CARE DOCUMENTATION FORM, IMPORTANT VISIT INFORMATION, WORK / SCHOOL INSTRUCTIONS Patient Instructions My [facility] [address] Additional Instructions Please keep your appointment next week with Dr. Villela. Please continue your regular medications as prescribed. You may use the stronger pain medication as prescribed, please monitor for constipation as this is a common side effect. You can elevate your arm to about the level of the heart to help minimize swelling. If you develop increased redness, drainage, swelling, pain, fevers/ chills, chest pain, trouble breathing, dizziness, palpitations, or you have any other new or concerning symptoms, please return to the emergency room. Problem Qualifiers
== END 2017-08-25 17:57 | disposition home or self-care (01) ==
LOC: C.EDB 16:13 → C.EDA 17:57
DX: Z09 Encounter for follow-up examination after completed treatment for conditions other than malignant neoplasm (principal); R22.31 Localized swelling, mass and lump, right upper limb; Z98.890 Other specified postprocedural states; Z85.3 Personal history of malignant neoplasm of breast; D58.0 Hereditary spherocytosis; I10 Essential (primary) hypertension; Z96.651 Presence of right artificial knee joint; Z93.3 Colostomy status; Z90.81 Acquired absence of spleen; Z80.3 Family history of malignant neoplasm of breast; Z80.0 Family history of malignant neoplasm of digestive organs; Z83.3 Family history of diabetes mellitus; Z82.49 Family history of ischemic heart disease and other diseases of the circulatory system; Z79.82 Long term (current) use of aspirin; Z79.899 Other long term (current) drug therapy; Z88.1 Allergy status to other antibiotic agents; Z88.8 Allergy status to other drugs, medicaments and biological substances; Z88.5 Allergy status to narcotic agent

== ENCOUNTER → 2017-09-14 | Outpatient (CLI) | payer OTHER, BC | END | disposition home or self-care (01) | LOC: C.LAB 12:52 | PROVIDERS: ATTEND Nurse Practitioner Family | DX: R39.9 Unspecified symptoms and signs involving the genitourinary system (principal) ==

== ENCOUNTER 2019-01-13 11:09 | Observation (INO) ==
[2019-01-13] MEDS ORDERED: SODIUM CHLORIDE 0.9% 500 ML IV ONE (11:19)
[2019-01-13] MEDS ORDERED: OPTIRAY 320 125ml IV PRN (11:24)
--- NOTE | 2019-01-13 11:42 | CT Scan Report ---
CT head/brain wo con CLINICAL HISTORY: 83 years-old Female with r/o cva. Acute strokelike symptoms TECHNIQUE: Multiple axial CT images of the head were obtained without contrast. A dose lowering tech nique was utilized adhering to the principles of ALARA. COMPARISON: CTA head and neck of same day, head CT 08/10/2017. FINDINGS: No acute intracranial hemorrhage, midline shift, intracranial mass, hydrocephalus, territorial ischem ia or abnormal extra-axial collection. Age-related involutional changes with ex vacuo ventriculomegal y. Patchy white matter hypodensities suggestive of chronic microvascular ischemic disease redemonstra mandie. Encephalomalacia of the left frontal lobe espinoza radiata thinning into the lentiform nucleus com patible with remote infarct is unchanged. Cerebral vascular calcifications are noted. The calvarium is intact. Mastoid air cells are clear. Completely opacified and expanded right spheno id sinus is unchanged. Soft tissues and orbits are unremarkable. IMPRESSION: 1. No acute intracranial abnormality. 2. Chronic findings as above. The above report was generated using voice recognition software. It may contain grammatical, syntax o r spelling errors. Electronically signed by: Curtis Olivarez M.D. 01/13/2019 11:41 AM
[2019-01-13 11:43] LABS: Basophils # (auto) 0.09 K/uL (0-0.2); Basophils % (auto) 0.8 %; Eosinophils # (auto) 0.17 K/uL (0-0.5); Eosinophils % (auto) 1.5 %; Hematocrit (blood only) 39.6 % (37-47); Hemoglobin 12.9 g/dL (12.0-16.0); Immature Granulocytes # (auto) 0.04 K/uL (0.00-0.02); Immature Granulocytes % (auto) 0.4 %; Lymphocytes # (auto) 4.31 K/uL (1.2-3.4); Lymphocytes % (auto) 38.1 %; Mean Corpuscular Hemoglobin 31.2 pg (25-34); Mean Corpuscular Hgb Conc 32.6 g/dL (32-36); Mean Corpuscular Volume 95.7 fL (80-100); Mean Platelet Volume 9.4 fL (7.4-10.4); Monocytes # (auto) 1.14 K/uL (0.11-0.59); Monocytes % (auto) 10.1 %; Neutrophils # (auto) 5.55 K/uL (1.4-6.5); Neutrophils % (auto) 49.1 %; Platelet Count 421 K/uL (130-400); RDW Coefficient of Variation 13.6 % (11.5-14.5); RDW Standard Deviation 47.4 fL (36.4-46.3); Red Blood Count 4.14 M/uL (4.2-5.4)
--- NOTE | 2019-01-13 11:59 | CT Scan Report ---
CT angio neck with con, CT angio head w con CLINICAL HISTORY: 83 years-old Female with aphasia. Acute strokelike symptoms COMPARISON STUDY: Head CT of same day, CTA neck 03/15/2017 TECHNIQUE: Following the IV administration of 120 mL of Optiray 320, CT angiogram of the head and nec k was performed from the aortic arch to the skull apex. Images are reviewed in the axial, sagittal, a nd coronal planes. 3-D MIPS images are created and assessed. IV contrast was administered without com plication. All measurements were calculated based on NASCET criteria. A dose lowering technique was utilized adhering to the principles of ALARA. CT DOSE: 1110.76 mGy.cm FINDINGS: The opacified imaged pulmonary arteries appear unremarkable. Moderate to severe mixed plaque of the t horacic aortic arch. Ectasia of the aortic isthmus measures up to 3.4 cm transversely. Image bilatera l subclavian arteries appear patent. Moderate mixed plaque involves the distal common carotid arterie s bilaterally. Severe mixed plaque of the bilateral carotid bulbs and proximal internal carotid arter ies results in less than 50% luminal narrowing bilaterally. Calcified plaque involves the cavernous a nd supraclinoid segments without high-grade stenosis. Streak artifact from dental amalgam hardware li mits evaluation of the distal cervical segments of the internal carotid arteries. Moderate mixed plaq ue of the distal cervical segment right ICA is noted with a linear apparent filling defect of the mid lumen on image 266 series 6 which appears to be artifactual. 4 mm segment of high-grade stenosis involves the proximal to mid right M1 segment (image 94 series 5) . Short segment moderate grade stenosis involves the proximal left M1 segment on image 98 series 5. H igh-grade stenosis at the origin of the left A1 segment, image 99 series 5. The anterior cerebral art eries are otherwise unremarkable. Anterior communicating artery appears normal. Calcified plaque at the origin of the right vertebral artery causes less than 50% luminal narrowing. There is mild multifocal luminal narrowing throughout the V4 segment right vertebral artery and basil ar artery. The basilar artery is diminutive. Bilateral posterior cerebral arteries are patent. There is a focal area of high-grade stenosis within the posterior communicating artery on the left, image 8 5 series 5 and image 47 series 500 measuring approximately 3 mm in length. The vertebral arteries are codominant. The left vertebral artery terminates into the right PICA. Cerebral venous sinuses appear patent. Multinodular goiter. Mild bilateral bronchial wall thickening. No pneumothorax. Enlarged mediastinal lymph nodes include a precarinal lymph node which measures 1.5 cm in short axis. Multilevel degenerat romina changes of the spine. IMPRESSION: 1. Severe mixed plaque of the bilateral carotid bulbs results in less than 50% luminal narrowing bila terally. 2. 4 mm segment of high-grade stenosis involves the proximal to mid right M1 segment. 3. Short segment moderate stenosis involves the proximal left M1 segment. 4. High-grade stenosis at the origin of the left A1 segment. 5. No aneurysm or dissection identified. 6. Additional findings as above. The above report was generated using voice recognition software. It may contain grammatical, syntax o r spelling errors. Electronically signed by: Curtis Olivarez M.D. 01/13/2019 11:58 AM
[2019-01-13 12:03] LABS: Partial Thromboplastin Ratio 0.9; Partial Thromboplastin Time 23.9 Seconds (21.0-31.0); Prothrombin Time 10.3 Seconds (9.0-12.0)
[2019-01-13 12:10] LABS: Phosphorus 3.2 mg/dl (2.5-4.9); Thyroid Stimulating Hormone 7.63 uIu/ml (0.300-4.500)
[2019-01-13 12:22] LABS: T4 Free Thyroxine 1.09 ng/dl (0.8-1.6)
[2019-01-13] MEDS ORDERED: ACETAMINOPHEN 1,000 MG/100 ML VIAL IV STA (12:26)
[2019-01-13 12:31] LABS: Alanine Aminotransferase 20 U/L (12-78); Albumin Level 3.2 gm/dl (3.4-5.0); Aspartate Aminotransferase 26 U/L (15-37); Blood Urea Nitrogen 27 mg/dl (7-18); Carbon Dioxide 27 mmol/L (21-32); Chloride 104 mmol/L (98-107); Creatinine Clr Calc Pharmacy 35.9 ml/min; Est GFR (African American) 48.1; Est GFR (Non-African American) 41.5; Glucose 136 mg/dl (70-99); Magnesium 2.3 mg/dl (1.8-2.4); Potassium 4.8 mmol/L (3.5-5.1); Sodium 138 mmol/L (136-145)
[2019-01-13 12:36] LABS: Albumin Globulin Ratio 0.7 (0.9-2); Alkaline Phosphatase 91 U/L (45-117); Bilirubin,Total 0.5 mg/dl (0.2-1); Globulin 4.3 gm/dl (2.5-4.0); Total Protein 7.5 gm/dl (6.4-8.2); Troponin I < 0.015 ng/ml (0-0.045)
--- NOTE | 2019-01-13 13:00 | XRay Report ---
XR chest 1V portable HISTORY: 83 years-old Female aphasia acute strokelike symptoms COMPARISON: Chest radiograph 11/06/2018, CT abdomen and pelvis 06/02/2018 TECHNIQUE: Portable AP view of the chest FINDINGS: Cardiac silhouette is mildly enlarged, unchanged. Coronary arterial stent grafts noted. Calcified boby que of the thoracic aortic arch. Mild chronic interstitial coarsening without pneumothorax, pleural e ffusion or overt pulmonary edema. Degenerative changes of the shoulders and spine. IMPRESSION: No acute process. The above report was generated using voice recognition software. It may contain grammatical, syntax o r spelling errors. Electronically signed by: Curtis Olivarez M.D. 01/13/2019 12:59 PM
[2019-01-13 14:15] LABS: Appearance Urine Clear (Clear); Bilirubin Urine Negative (Negative); Blood Urine Negative (Negative); Color Urine Yellow; Glucose Urine UA Negative (Negative); Ketones Urine Negative (Negative); Leukocyte Esterase Urine Negative (Negative); Nitrite Urine Negative (Negative); Protein Urine Negative (Negative); Specific Gravity Urine 1.015 (1.000-1.030); Urobilinogen Urine Negative (Negative)
--- NOTE | 2019-01-13 14:23 | History & Physical Report ---
Date of Service January 13, 2019 Assessment & Plan (1) Syncope: - Presented with syncopal/unresponsive episode at breakfast -- concern for acute CVA due to multiple risk factors vs. seizure activity. 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 - Head CT negative for acute but shows old stroke; Head/neck CTA report as below: 1. Severe mixed plaque of the bilateral carotid bulbs results in less than 50% luminal narrowing bilaterally. 2. 4 mm segment of high-grade stenosis involves the proximal to mid right M1 segment. 3. Short segment moderate stenosis involves the proximal left M1 segment. 4. High-grade stenosis at the origin of the left A1 segment. 5. No aneurysm or dissection identified. reports she has had a few other episodes but not as prolonged as this in the past where she was very confused and had expressive aphasia over the last 2 years. - MRI of brain and echocardiogram with bubble study pending completion. Plan for EEG in the morning to rule out seizure activity. - Admit to tele to evaluate for arrhythmia. - Stroke protocol ordered; neuro checks q2hr. - NPO until cleared via dypshagia screen. - Hold home Losartan for permissive hypertension but continue Metoprolol as prescribed. - Lipid panel in the AM; continue Atorvastatin 40 mg daily, ASA 81 mg daily and Plavix 75 mg daily as prescribed. - Hemoglobin A1C in the morning; does have h/o impaired fasting glucose levels. - PT/OT/Speech therapy evaluation. - Consult neurology for evaluation. (2) Stroke-like symptoms: - Work up as noted above. (3) History of cerebrovascular accident: - Hemorrhagic CVA, in spring. Was seen by neurology as an outpatient with an outpatient work-up after having a similar episode of unresponsiveness followed by 2 weeks of decreased cognition and visual changes as per patient. She was then found to have a subacute stroke on CT scan of the head, was seen by neurology and had an MRI of the brain which did show evidence of hemorrhagic stroke and then this resolved She was started on Plavix at that time by neurology. Several months later, she then had her NSTEMI and was started on dual antiplatelet therapy and statin - Continue ASA, Plavix and statin as prescribed. - Acute CVA work up as noted above. (4) Left arm pain: - C/o left arm/shoulder pain. - EKG negative; initial trop also negative. - Will trend trop q6hr to rule out cardiac etiology. (5) Acute renal failure: - Creatinine 1.22 on labs, likely prerenal related to dehydration. - NS at 80 cc/hr x 1 bag. - Monitor renal function daily. (6) Urinary incontinence: - Follows with urology. - Continue Myrbetriq as prescribed. - Recommend purewick following admission. (7) Stage III chronic kidney disease: - Renally dose all meds. (8) Pulmonary nodules: - Followed as outpatient. (9) Hypercholesterolemia: - Continue ASA and statin as prescribed. - Lipid panel in the AM. (10) Hypertension: - Continue Metoprolol as prescribed. - Hold Losartan to allow for permissive hypertension. - Hydralazine 10 mg IV q6hr as needed for blood pressure greater than 180/100 given history of hemorrhagic stroke thought to be from hypertensive emergency (11) CAD (coronary artery disease): - S/p atypical NSTEMI, LAD JOHN x 2, LCx JOHN in August 2017. With left shoulder [id number] as above ECG without evidence of ischemia here - Continue ASA, statin, Plavix, metoprolol. (12) Breast cancer: - >5 years ago; s/p lumpectomy and radiation therapy. (13) Colostomy in place: - Due to h/o bowel perforation. - Currently has formed output, will monitor. (14) Thyroid disorder: - TSH 7.630 -- h/o abnormal TSH but has never been started on thyroid replacement. - Did have multinodular goiter noted on imaging. - Recommend f/u TSH in 3-4 weeks, will likely require Synthroid. (15) Spherocytosis, hereditary: - S/p splenectomy. (16) Obesity: - BMI 35.6. - Encourage weight loss and exercise. (17) Carotid artery stenosis: Noted to be less than 50% bilaterally on CT angiogram of the neck -Continue aspirin, Plavix, statin (18) Cerebrovascular disease: With multiple areas of stenoses through the cerebral arteries noted as above -Medical management as above No role for intervention as per telemetry stroke consultation at [facility] (19) DVT prophylaxis: - SCDs; Heparin q12hr. Dispo: Admit to med/surg with tele for further work-up for episode of unresponsiveness History of Present Illness Chief Complaint: Weakness, Syncope Primary Care Provider: LENNIE Arellano Mrs. Grace is an 83 year old female with past medical history of CAD, HTN, HLD, Spherocytosis s/p splenectomy, CVA, CKD Stage III, Breast Cancer, Spinal stenosis, bowel perforation s/p colostomy placement who presented with weakness and syncope. Pt. had a CVA in the spring and has had issues with r esidual right sided weakness following this episode. Her helps her ambulate/perform ADLs at home. She woke up this morning and had trouble getting out of bed. Pt. was able to eventually take a shower/get dressed and went to breakfast with her family. She complained of nausea and general malaise at breakfast but ate most of her meal. At one point, around ~10:30-10:45 am, the patient had LOC and slumped over. After regaining consciousness, she did not follow verbal commands for ~45 minutes until the ambulance arrived and transported her to the hospital. Pt. regained her speech/followed commands by the time she arrived at the ER. Pt. has been repeating things in the ER but does not have slurred speech, vision changes, increased weakness in extremities, facial drooping. Does c/o of a headache; no improvement with Tylenol IV. Has left shoulder/arm and neck pain but denies chest pain -- h/o CAD s/p stents x3 in August 2017. Has an ostomy, formed output noted but does c/o pain at ostomy site. Majority of history was obtained from her two family members present at bedside. ER course: CTA of neck showed stenosis -- case was discussed with telestroke at [facility] [place], pt. would not qualify for intervention at this time due to age. CT head was negative. Labs showed mild leukocytosis and acute renal failure. U/a was negative. EKG with no acute ST-T wave changes; Trop was negative. Allergies Allergy/AdvReac Type Severity Reaction Status Date / Time vancomycin Allergy Intermediate rash Verified 11/14/18 15:54 diphenhydramine Allergy Mild Redness Verified 11/14/18 15:54 amoxicillin Allergy Unknown bad Verified 11/14/18 15:54 reaction/glands swollen puffed up clavulanic acid Allergy Unknown Unknown Verified 11/14/18 15:54 codeine Allergy Unknown Unknown Verified 11/14/18 15:54 Home Medications Home Medications Medication Instructions Recorded Confirmed Type calcium carbonate [Calcium 500] 500 mg PO QAM #0 09/02/12 01/13/19 History cetirizine 10 mg PO HS #0 tab 09/02/12 01/13/19 History ascorbic acid (vitamin C) 500 mg PO QAM #0 06/22/13 01/13/19 History cholecalciferol (vitamin D3) 2,000 unit PO HS #0 cap 06/22/13 01/13/19 History aspirin [Aspirin Low Dose] 81 mg PO QAM 11/22/17 01/13/19 History uakxnfek-vba-US-lycopen-lutein 1 tab PO QAM 05/30/18 01/13/19 History [Centrum Silver] nitroglycerin 0.4 mg SUBLINGUAL UD PRN 07/21/18 01/13/19 History clopidogrel 75 mg tablet 75 mg PO QAM #90 tab 10/16/18 01/13/19 Rx colostomy bags 2 3/4" #30 ea 10/22/18 11/28/18 Rx losartan 50 mg tablet 50 mg PO QAM #30 tab 10/22/18 01/13/19 Rx ostomy supplies 2 3/4" #30 ea 10/22/18 11/28/18 Rx atorvastatin 40 mg PO QAM 11/06/18 01/13/19 History mirabegron 50 mg tablet,extended 50 mg PO HS #90 tab 11/12/18 01/13/19 Rx release 24 hr hydrocodone 5 mg-acetaminophen 325 0.5 tab PO DAILY PRN #90 tab 11/22/18 01/13/19 Rx mg tablet solifenacin 10 mg tablet 10 mg PO DAILY #90 tab 11/28/18 01/13/19 Rx metoprolol succinate 25 mg PO HS 01/13/19 01/13/19 History polyethylene glycol 3350 17 gm PO DAILY 01/13/19 01/13/19 History Past Med/Surg History Medical History Breast cancer (Resolved) CAD (coronary artery disease) (Chronic) NSTEMI in 08/2017; 2 JOHN to LAD and 1 to LCx Cataract (Resolved) Diverticulitis (Resolved) Diverticulosis of colon (Resolved) History of cerebrovascular accident (Resolved) History of open sigmoidectomy (Resolved) Hypercholesterolemia (Chronic) Hypertension (Chronic) Hypertensive crisis (Resolved) Non-hemorrhagic cerebrovascular accident (CVA) (Resolved) Pancreatitis (Resolved) Perforated bowel (Resolved) Pseudoaneurysm (Resolved) Secondary thrombocytosis (Chronic) Spherocytosis, hereditary (Chronic) Travelers' diarrhea (Resolved) Surgical History History of arthroscopy of right knee History of breast surgery History of section (Resolved) History of section History of cholecystectomy History of colectomy (Resolved) History of colonoscopy History of colposcopy History of dilation and curettage History of knee replacement (Resolved) History of lumpectomy (Resolved) History of splenectomy (Resolved) History of splenectomy (Resolved) History of tonsillectomy and adenoidectomy History of tubal ligation Hx of cholecystectomy (Chronic) S/P angioplasty with stent (Resolved) Status post breast lumpectomy (Resolved) Family History Unknown Heart disease Diabetes Breast cancer Uncle Colorectal cancer Social History Preferred Language: Yi Communication Ability: Effective Tool Liaison Required: No Beliefs That Will Affect Care: None Current Living Situation: Spouse Other Information That Helps Us Care for You: No Feels Safe at Home: Yes Safety Concerns: Feels Safe At This Time Smoking Status: Never smoker Second Hand Exposure: Yes ; Hx Alcohol Use: No Hx Substance Use: No Review of Systems Review of Systems: Other (Limited review of systems. ) Constitutional: + fatigue and + weakness Eyes: no worsening vision Respiratory: no cough, no dyspnea, no dyspnea on exertion and no sputum production Cardiovascular: + lightheadedness and + syncope; no chest pain and no edema Gastrointestinal: + nausea; no abdominal pain, no vomiting, no constipation and no diarrhea/loose stools Genitourinary: no difficulty urinating Integumentary: no non-healing lesions Neurologic: + dizziness, + syncope, + headache(s) and + confusion; no abnormal speech Physical Exam Physical Exam: General: Resting comfortably, family present at bedside. Neck: Supple and nontender Lungs: no tachypnea noted. Abdomen: ostomy with formed output. Nontender to palpation over abdomen. Extremities: Warm. No edema present. +2/5 muscle strength in RLE, +3/5 in LLE (likely chronic) Neuro: no focal neuro deficits noted on exam. Skin: No rash please see Dr. Hein's addendum for full physical exam. Results & Data Vital Signs (Past 12 Hours) Vital Signs Temp Pulse Resp BP Pulse Ox 01/13/19 13:45 80 18 167/86 H 96 01/13/19 13:40 79 16 93 01/13/19 13:30 79 18 141/78 H 93 01/13/19 13:20 78 16 94 01/13/19 13:15 80 21 152/82 H 95 01/13/19 13:10 80 14 96 01/13/19 13:00 78 14 150/84 H 97 01/13/19 12:50 75 15 98 01/13/19 12:45 79 12 153/78 H 97 01/13/19 12:40 88 18 98 01/13/19 12:36 97 01/13/19 12:35 158/90 H 98 01/13/19 12:31 152/80 H 01/13/19 12:15 80 13 153/83 H 96 01/13/19 12:07 98 01/13/19 12:01 79 17 01/13/19 12:00 83 16 130/78 01/13/19 11:48 87 17 96 01/13/19 11:47 85 14 139/78 96 01/13/19 11:45 86 14 97 01/13/19 11:36 36.4 C L 86 20 138/81 97 01/13/19 11:35 87 14 138/81 97 01/13/19 11:34 87 14 95 Laboratory Results 01/13/19 01/13/19 01/13/19 Range/Units 12:55 11:30 11:30 WBC (4.8-10.8) K/uL RBC (4.2-5.4) M/uL Hgb (12.0-16.0) g/dL Hct (37-47) % MCV (80-100) fL MCH (25-34) pg MCHC (32-36) g/dL RDW Std Deviation (36.4-46.3) fL RDW Coeff of Roberto (11.5-14.5) % Plt Count (130-400) K/uL MPV (7.4-10.4) fL Immature Gran % (Auto) % Neut % (Auto) % Lymph % (Auto) % [place] % (Auto) % Eos % (Auto) % Baso % (Auto) % Immature Gran # (Auto) (0.00-0.02) K/uL Neut # (Auto) (1.4-6.5) K/uL Lymph # (Auto) (1.2-3.4) K/uL [place] # (Auto) (0.11-0.59) K/uL Eos # (Auto) (0-0.5) K/uL Baso # (Auto) (0-0.2) K/uL PT (9.0-12.0) Seconds INR (0.9-1.1) APTT (21.0-31.0) Seconds PTT Ratio Sodium (136-145) mmol/L Potassium (3.5-5.1) mmol/L Chloride (98-107) mmol/L Carbon Dioxide (21-32) mmol/L Anion Gap (3-11) BUN (7-18) mg/dl Creatinine (0.6-1.2) mg/dl Est Cr Clr Drug Dosing ml/min Est GFR ( Amer) Est GFR (Non-Af Amer) BUN/Creatinine Ratio (10-20) Glucose (70-99) mg/dl Calcium (8.5-10.1) mg/dl Phosphorus 3.2 (2.5-4.9) mg/dl Magnesium (1.8-2.4) mg/dl Total Bilirubin (0.2-1) mg/dl AST (15-37) U/L ALT (12-78) U/L Alkaline Phosphatase (45-117) U/L Troponin I (0-0.045) ng/ml Total Protein (6.4-8.2) gm/dl Albumin (3.4-5.0) gm/dl Globulin (2.5-4.0) gm/dl Albumin/Globulin Ratio (0.9-2) TSH 7.630 H (0.300-4.500) uIu/ml Free T4 1.09 (0.8-1.6) ng/dl Urine Color Yellow Urine Appearance Clear (Clear) Urine pH 6.0 (4.5-7.5) Ur Specific [place] 1.015 (1.000-1.030) Urine Protein Negative (Negative) Urine Glucose (UA) Negative (Negative) Urine Ketones Negative (Negative) Urine Blood Negative (Negative) Urine Nitrite Negative (Negative) Urine Bilirubin Negative (Negative) Urine Urobilinogen Negative (Negative) Ur Leukocyte Esterase Negative (Negative) Blood Type A Positive Antibody Screen NEGATIVE 01/13/19 01/13/19 01/13/19 Range/Units 11:30 11:30 11:13 WBC 11.30 H (4.8-10.8) K/uL RBC 4.14 L (4.2-5.4) M/uL Hgb 12.9 (12.0-16.0) g/dL Hct 39.6 (37-47) % MCV 95.7 (80-100) fL MCH 31.2 (25-34) pg MCHC 32.6 (32-36) g/dL RDW Std Deviation 47.4 H (36.4-46.3) fL RDW Coeff of Roberto 13.6 (11.5-14.5) % Plt Count 421 H (130-400) K/uL MPV 9.4 (7.4-10.4) fL Immature Gran % (Auto) 0.4 % Neut % (Auto) 49.1 % Lymph % (Auto) 38.1 % [place] % (Auto) 10.1 % Eos % (Auto) 1.5 % Baso % (Auto) 0.8 % Immature Gran # (Auto) 0.04 H (0.00-0.02) K/uL Neut # (Auto) 5.55 (1.4-6.5) K/uL Lymph # (Auto) 4.31 H (1.2-3.4) K/uL [place] # (Auto) 1.14 H (0.11-0.59) K/uL Eos # (Auto) 0.17 (0-0.5) K/uL Baso # (Auto) 0.09 (0-0.2) K/uL PT 10.3 (9.0-12.0) Seconds INR 1.0 (0.9-1.1) APTT 23.9 (21.0-31.0) Seconds PTT Ratio 0.9 Sodium 138 (136-145) mmol/L Potassium 4.8 (3.5-5.1) mmol/L Chloride 104 (98-107) mmol/L Carbon Dioxide 27 (21-32) mmol/L Anion Gap 7.0 (3-11) BUN 27 H (7-18) mg/dl Creatinine 1.22 H (0.6-1.2) mg/dl Est Cr Clr Drug Dosing 35.9 ml/min Est GFR ( Amer) 48.1 Est GFR (Non-Af Amer) 41.5 BUN/Creatinine Ratio 22.0 H (10-20) Glucose 136 H (70-99) mg/dl Calcium 9.0 (8.5-10.1) mg/dl Phosphorus (2.5-4.9) mg/dl Magnesium 2.3 (1.8-2.4) mg/dl Total Bilirubin 0.5 (0.2-1) mg/dl AST 26 (15-37) U/L ALT 20 (12-78) U/L Alkaline Phosphatase 91 (45-117) U/L Troponin I < 0.015 (0-0.045) ng/ml Total Protein 7.5 (6.4-8.2) gm/dl Albumin 3.2 L (3.4-5.0) gm/dl Globulin 4.3 H (2.5-4.0) gm/dl Albumin/Globulin Ratio 0.7 L (0.9-2) TSH (0.300-4.500) uIu/ml Free T4 (0.8-1.6) ng/dl Urine Color Urine Appearance (Clear) Urine pH (4.5-7.5) Ur Specific [place] (1.000-1.030) Urine Protein (Negative) Urine Glucose (UA) (Negative) Urine Ketones (Negative) Urine Blood (Negative) Urine Nitrite (Negative) Urine Bilirubin (Negative) Urine Urobilinogen (Negative) Ur Leukocyte Esterase (Negative) Blood Type Antibody Screen Code Status & VTE Plan Code Status FULL CODE VTE Prophylaxis Plan VTE Prophylaxis will be ordered: Yes Supervising Physician Co-Signing Physician Notes PA Supervision Note: I personally saw and examined the patient. I verified all guaman points and agree with TOMASZ Bonner with the following exceptions and/or additions: Patient presented with a prolonged episode of unresponsiveness today that was preceded by a mild headache and right arm shaking. She has a history of a left sided hemorrhagic stroke with encephalomalacia of the left frontal lobe seen on CT of the head. She has had a few other short episodes similar but not as severe or prolonged over the last 2 years as per There was no tongue biting or lip smacking, no acute loss of bladder and she has an ostomy for her bowels. She does have a period of time where she has no idea what happened for about 45 minutes surrounding the episode today. History reviewed as above ROS as above Vitals reviewed Gen: AAOx3, NAD, lying in bed, pleasant, cooperative HEENT: Anicteric sclerae, EOMI, PERRLA, oropharynx clear CV: RRR no mgr nl S1S2 Pulm: CTAB no wcr Abd: +BS soft NT ND no masses or hernias, ostomy in place with formed brown stool Ext: No edema, 2+ DP pulses Skin: No rashes, warm/dry Neuro: With 4/5 strength in the right upper and lower extremities throughout, otherwise 5 out of 5 strength throughout, CN II through XII intact, positive pronator drift in the right upper extremity, intact [id number] bilaterally, sensation intact to light touch throughout upper and lower extremities, DTRs 1+ and symmetric throughout upper and lower extremities, speech is fluent, mentation is normal but somewhat slowed 83-year-old female here presented with 45 minutes of decreased mentation and amnesia with stroke versus seizure versus syncope suspected. -Work-up planned as above -EEG in the morning -Appreciate neurology consultation Stroke work-up as above PG Care Time/CCT Total # of Minutes Spent Total Time Spent with Patient: Total time spent is greater than 50% in coordination of care (as documented) at patient's floor/unit and/or counseling patient:
--- NOTE | 2019-01-13 15:42 | Emergency Department Note ---
Entered by Dipti Lopez acting as a scribe for History of Present Illness General Chief complaint: Stroke/CVA Symptoms Stated complaint: stroke alert Time Seen by Provider: 01/13/19 11:18 Source: patient and EMS Mode of arrival: EMS Limitations: no limitations History of Present Illness Onset (ago): hour(s) 3 Radiation: non-radiation Pain Consistency: + constant Relieved By: + none Exacerbated By: + none Associated symptoms: + headaches, + weakness and + other (-diarrhea); no cough (or congestion) and no fever/chills Treatments prior to arrival: none The patient is an 83 year old female who presents to the ED with complaints of possible stroke symptoms that started around 0830 this morning. She was brought to the ED via EMS. Her states while he was trying to help her with her shower, she seemed increasingly weak and has residual right sided weakness from a previous stroke. Her last known well time is last night, as her states she was her normal self last night before bed. The patient and her family went out to breakfast around 0930 and she complained of not feeling well and displayed "shaking" in the right hand. Her family denies any recent fevers, chills, cough, congestion or diarrhea. Her states she experienced abdomi nal pain right around Thanksgiving and was treated in an ER in [place]. The patient complains of a headache and weakness. Home Medications Home Medications Medication Instructions Recorded Confirmed Type calcium carbonate [Calcium 500] 500 mg PO QAM #0 09/02/12 01/13/19 History cetirizine 10 mg PO HS #0 tab 09/02/12 01/13/19 History ascorbic acid (vitamin C) 500 mg PO QAM #0 06/22/13 01/13/19 History cholecalciferol (vitamin D3) 2,000 unit PO HS #0 cap 06/22/13 01/13/19 History aspirin [Aspirin Low Dose] 81 mg PO QAM 11/22/17 01/13/19 History Centrum Silver 1 tab PO QAM 05/30/18 01/13/19 History nitroglycerin 0.4 mg SUBLINGUAL UD PRN 07/21/18 01/13/19 History clopidogrel 75 mg tablet 75 mg PO QAM #90 tab 10/16/18 01/13/19 Rx colostomy bags 2 3/4" #30 ea 10/22/18 01/14/19 Rx losartan 50 mg tablet 50 mg PO QAM #30 tab 10/22/18 01/13/19 Rx ostomy supplies 2 3/4" #30 ea 10/22/18 01/14/19 Rx atorvastatin 40 mg PO QAM 11/06/18 01/13/19 History mirabegron 50 mg tablet,extended 50 mg PO HS #90 tab 11/12/18 01/13/19 Rx release 24 hr hydrocodone 5 mg-acetaminophen 325 0.5 tab PO DAILY PRN #90 tab 11/22/18 01/13/19 Rx mg tablet solifenacin 10 mg tablet 10 mg PO DAILY #90 tab 11/28/18 01/13/19 Rx metoprolol succinate 25 mg PO HS 01/13/19 01/13/19 History polyethylene glycol 3350 17 gm PO DAILY 01/13/19 01/13/19 History Allergies Allergy/AdvReac Type Severity Reaction Status Date / Time vancomycin Allergy Intermediate rash Verified 11/14/18 15:54 diphenhydramine Allergy Mild Redness Verified 11/14/18 15:54 amoxicillin Allergy Unknown bad Verified 11/14/18 15:54 reaction/glands swollen puffed up clavulanic acid Allergy Unknown Unknown Verified 11/14/18 15:54 codeine Allergy Unknown Unknown Verified 11/14/18 15:54 Past Med/Surg History Medical History Breast cancer (Resolved) CAD (coronary artery disease) (Chronic) NSTEMI in 08/2017; 2 JOHN to LAD and 1 to LCx Carotid artery stenosis Cataract (Resolved) Cerebrovascular disease Diverticulitis (Resolved) Diverticulosis of colon (Resolved) History of cerebrovascular accident (Resolved) History of open sigmoidectomy (Resolved) Hypercholesterolemia (Chronic) Hypertension (Chronic) Hypertensive crisis (Resolved) Non-hemorrhagic cerebrovascular accident (CVA) (Resolved) Pancreatitis (Resolved) Perforated bowel (Resolved) Pseudoaneurysm (Resolved) Secondary thrombocytosis (Chronic) Spherocytosis, hereditary (Chronic) Travelers' diarrhea (Resolved) Surgical History History of arthroscopy of right knee History of breast surgery History of section (Resolved) History of section History of cholecystectomy History of colectomy (Resolved) History of colonoscopy History of colposcopy History of dilation and curettage History of knee replacement (Resolved) History of lumpectomy (Resolved) History of splenectomy (Resolved) History of splenectomy (Resolved) History of tonsillectomy and adenoidectomy History of tubal ligation Hx of cholecystectomy (Chronic) S/P angioplasty with stent (Resolved) Status post breast lumpectomy (Resolved) Family History Unknown Heart disease Diabetes Breast cancer Uncle Colorectal cancer Mother , age 54 of complications post splenectomy No problems noted. 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 and A total of 10 systems reviewed and were otherwise negative Physical Exam Vital Signs Vital Signs - 24 hr 01/13/19 11:34 01/13/19 11:35 01/13/19 11:36 Temperature 36.4 C L Temperature Source Oral Pulse Rate 87 87 86 Pulse Rate from SpO2 Sensor 87 87 Pulse Rhythm Regular Pulse Strength Normal Respiratory Rate 14 14 20 Respiratory Effort / Characteristics Non-Labored Spontaneous Respiratory Depth Normal Respiratory Pattern Regular Blood Pressure 138/81 138/81 Blood Pressure Mean 102 100 Pulse Oximetry 95 97 97 Oxygen Delivery Method Room Air Sepsis Recent Fever Within 48 Hours No Sepsis Action Taken by Nursing No Action Required 01/13/19 11:45 01/13/19 11:47 01/13/19 11:48 Temperature Temperature Source Pulse Rate 86 85 87 Pulse Rate from SpO2 Sensor 86 86 86 Pulse Rhythm Pulse Strength Respiratory Rate 14 14 17 Respiratory Effort / Characteristics Respiratory Depth Respiratory Pattern Blood Pressure 139/78 Blood Pressure Mean 105 Pulse Oximetry 97 96 96 Oxygen Delivery Method Sepsis Recent Fever Within 48 Hours Sepsis Action Taken by Nursing 01/13/19 12:00 01/13/19 12:01 01/13/19 12:07 Temperature Temperature Source Pulse Rate 83 79 Pulse Rate from SpO2 Sensor Pulse Rhythm Pulse Strength Respiratory Rate 16 17 Respiratory Effort / Characteristics Respiratory Depth Respiratory Pattern Blood Pressure 130/78 Blood Pressure Mean 87 Pulse Oximetry 98 Oxygen Delivery Method Room Air Sepsis Recent Fever Within 48 Hours Sepsis Action Taken by Nursing 01/13/19 12:15 01/13/19 12:31 01/13/19 12:35 Temperature Temperature Source Pulse Rate 80 Pulse Rate from SpO2 Sensor 79 81 Pulse Rhythm Pulse Strength Respiratory Rate 13 Respiratory Effort / Characteristics Respiratory Depth Respiratory Pattern Blood Pressure 153/83 H 152/80 H 158/90 H Blood Pressure Mean 98 109 102 Pulse Oximetry 96 98 Oxygen Delivery Method Sepsis Recent Fever Within 48 Hours Sepsis Action Taken by Nursing 01/13/19 12:36 01/13/19 12:40 01/13/19 12:45 Temperature Temperature Source Pulse Rate 88 79 Pulse Rate from SpO2 Sensor 81 88 79 Pulse Rhythm Pulse Strength Respiratory Rate 18 12 Respiratory Effort / Characteristics Respiratory Depth Respiratory Pattern Blood Pressure 153/78 H Blood Pressure Mean 107 Pulse Oximetry 97 98 97 Oxygen Delivery Method Sepsis Recent Fever Within 48 Hours Sepsis Action Taken by Nursing 01/13/19 12:50 01/13/19 13:00 01/13/19 13:10 Temperature Temperature Source Pulse Rate 75 78 80 Pulse Rate from SpO2 Sensor 76 78 80 Pulse Rhythm Pulse Strength Respiratory Rate 15 14 14 Respiratory Effort / Characteristics Respiratory Depth Respiratory Pattern Blood Pressure 150/84 H Blood Pressure Mean 108 Pulse Oximetry 98 97 96 Oxygen Delivery Method Sepsis Recent Fever Within 48 Hours Sepsis Action Taken by Nursing 01/13/19 13:15 01/13/19 13:20 01/13/19 13:30 Temperature Temperature Source Pulse Rate 80 78 79 Pulse Rate from SpO2 Sensor 79 78 79 Pulse Rhythm Pulse Strength Respiratory Rate 21 16 18 Respiratory Effort / Characteristics Respiratory Depth Respiratory Pattern Blood Pressure 152/82 H 141/78 H Blood Pressure Mean 103 95 Pulse Oximetry 95 94 93 Oxygen Delivery Method Sepsis Recent Fever Within 48 Hours Sepsis Action Taken by Nursing 01/13/19 13:40 01/13/19 13:45 Temperature Temperature Source Pulse Rate 79 80 Pulse Rate from SpO2 Sensor 78 81 Pulse Rhythm Pulse Strength Respiratory Rate 16 18 Respiratory Effort / Characteristics Respiratory Depth Respiratory Pattern Blood Pressure 167/86 H Blood Pressure Mean 99 Pulse Oximetry 93 96 Oxygen Delivery Method Sepsis Recent Fever Within 48 Hours Sepsis Action Taken by Nursing GENERAL: Awake, alert, fatigued-appearing, in no distress HENT: Normocephalic, atraumatic. Oropharynx with dry mucous membranes and otherwise unremarkable. EYES: Normal conjunctiva. Sclera non-icteric. NECK: Supple. No nuchal rigidity. FROM. No JVD. RESPIRATORY: CTAB. CARDIAC: Regular rate, normal rhythm. Extremities warm and well perfused. Pulses equal. ABDOMEN: Soft, non-distended. No tenderness to palpation. No rebound or guarding. No masses. RECTAL: Deferred. MUSCULOSKELETAL: Chest examination reveals no tenderness. The back is symmetrical on inspection without obvious abnormality. There is no CVA tenderness to palpation. No joint edema. LOWER EXTREMITIES: Calves are equal size bilaterally and non-tender. No edema. No discoloration. NEURO: Normal sensorium. No sensory or motor deficits noted. Subtle weakness of right arm and right leg with 4+/5 strength, otherwise 5/5 strength, fluent speech. Face symmetric. SKIN: No rash or jaundice noted. Course Course 1132: The patient was evaluated in room A1 and a complete history and physical were performed. 1215: I discussed the patients case with Dr. Castillo, [facility] Stroke Neurology. Typically no intervention is indicated for CT findings. He recommends an MRI and admission for typical stroke evaluation. 1228: I discussed the patients case with Dr. Vergara, [facility] Hospitalist. The patient will be further evaluated. 1235: I reevaluated the patient. She is resting comfortably. I discussed my recommendation she remain in the hospital for further evaluation and management and she and her family are agreeable with the plan. Administered Medications Discontinued Medications Aspirin (Ecotrin Ectab) 81 mg PO [facility] Stop: 02/13/19 08:59 Last Admin: 01/14/19 07:47 Dose: 81 mg Documented by: [id number] Atorvastatin Calcium (Lipitor) 40 mg PO [facility] Stop: 02/13/19 08:59 Last Admin: 01/14/19 07:48 Dose: 40 mg Documented by: [id number] Calcium Carbonate (Tums) 1,500 mg PO Q4H PRN PRN Reason: Indigestion Stop: 02/12/19 23:56 Last Admin: 01/14/19 00:37 Dose: 1,500 mg Documented by: [id number] Clopidogrel Bisulfate (Plavix) 75 mg PO [facility] Stop: 02/13/19 08:59 Last Admin: 01/14/19 07:47 Dose: 75 mg Documented by: [id number] Gadobutrol (Gadavist 65ml) 8.5 ml IV ONCE PRN PRN Reason: Interaction Checking Stop: 01/17/19 17:19 Last Admin: 01/13/19 17:21 Dose: 8.5 ml Documented by: [id number] Heparin Sodium (Porcine) (Heparin Sodium (Porcine)) 5,000 units SQ Q12 [facility] Stop: 02/12/19 20:59 Last Admin: 01/14/19 11:01 Dose: 5,000 units Documented by: [id number] Cosigned by: [id number] Admin: 01/13/19 21:13 Dose: 5,000 units Documented by: [id number] Cosigned by: [id number] Sodium Chloride (Nss) 500 mls @ 999 mls/hr IV .Q31M ONE Stop: 01/13/19 11:49 Last Infusion: 01/13/19 13:54 Dose: 0 mls/hr Documented by: [id number] Admin: 01/13/19 12:19 Dose: 999 mls/hr Documented by: [id number] Acetaminophen (Ofirmev) 1,000 mg in 100 mls @ 400 mls/hr IV NOW STA Stop: 01/13/19 12:40 Last Infusion: 01/13/19 13:55 Dose: 0 mls/hr Documented by: [id number] Admin: 01/13/19 12:36 Dose: 400 mls/hr Documented by: [id number] Sodium Chloride (Nss 1000ml) 1,000 mls @ 80 mls/hr IV .[id number] [facility] Stop: 01/14/19 04:53 Last Admin: 01/13/19 19:59 Dose: Not Given Documented by: [id number] Ioversol (Optiray 320 125ml) 120 ml IV ONCE PRN PRN Reason: Interaction Checking Stop: 01/17/19 11:23 Last Admin: 01/13/19 11:24 Dose: 120 ml Documented by: [id number] Metoprolol Succinate (Toprol Xl) 25 mg PO HS [facility] Stop: 02/12/19 20:59 Last Admin: 01/13/19 21:13 Dose: 25 mg Documented by: [id number] Oxycodone HCl (Roxicodone Immediate Rel) 5 mg PO Q6H PRN PRN Reason: Pain Stop: 01/27/19 16:23 Last Admin: 01/14/19 11:38 Dose: 5 mg Documented by: [id number] Admin: 01/13/19 21:23 Dose: 5 mg Documented by: [id number] Simethicone (Mylicon) 80 mg PO Q6H PRN PRN Reason: Flatulence Stop: 02/12/19 23:56 Last Admin: 01/14/19 07:46 Dose: 80 mg Documented by: [id number] Admin: 01/14/19 01:25 Dose: 80 mg Documented by: [id number] Medical Decision Making Differential Diagnosis Differential Diagnosis includes but is not limited to dehydration, stroke, anemia, hypoglycemia, hyponatremia, hypernatremia, urinary tract infection, pneumonia, bronchitis, sepsis, gastroenteritis, additional abdominal pathology, metabolic abnormalities and infections. Medical Records Attestation: I reviewed the patient's medical records. Home Medications Current Medication List: was personally reviewed by me Laboratory Data Attestation: I reviewed the patient's lab results. Result diagrams: 01/14/19 07:13 01/14/19 07:13 Lab Results 01/13/19 01/13/19 01/13/19 Range/Units 11:13 11:30 11:30 WBC 11.30 H (4.8-10.8) K/uL RBC 4.14 L (4.2-5.4) M/uL Hgb 12.9 (12.0-16.0) g/dL Hct 39.6 (37-47) % MCV 95.7 (80-100) fL MCH 31.2 (25-34) pg MCHC 32.6 (32-36) g/dL RDW Std Deviation 47.4 H (36.4-46.3) fL RDW Coeff of Roberto 13.6 (11.5-14.5) % Plt Count 421 H (130-400) K/uL MPV 9.4 (7.4-10.4) fL Immature Gran % (Auto) 0.4 % Neut % (Auto) 49.1 % Lymph % (Auto) 38.1 % [place] % (Auto) 10.1 % Eos % (Auto) 1.5 % Baso % (Auto) 0.8 % Immature Gran # (Auto) 0.04 H (0.00-0.02) K/uL Neut # (Auto) 5.55 (1.4-6.5) K/uL Lymph # (Auto) 4.31 H (1.2-3.4) K/uL [place] # (Auto) 1.14 H (0.11-0.59) K/uL Eos # (Auto) 0.17 (0-0.5) K/uL Baso # (Auto) 0.09 (0-0.2) K/uL PT 10.3 (9.0-12.0) Seconds INR 1.0 (0.9-1.1) APTT 23.9 (21.0-31.0) Seconds PTT Ratio 0.9 Sodium 138 (136-145) mmol/L Potassium 4.8 (3.5-5.1) mmol/L Chloride 104 (98-107) mmol/L Carbon Dioxide 27 (21-32) mmol/L Anion Gap 7.0 (3-11) BUN 27 H (7-18) mg/dl Creatinine 1.22 H (0.6-1.2) mg/dl Est Cr Clr Drug Dosing 35.9 ml/min Est GFR ( Amer) 48.1 Est GFR (Non-Af Amer) 41.5 BUN/Creatinine Ratio 22.0 H (10-20) Glucose 136 H (70-99) mg/dl Calcium 9.0 (8.5-10.1) mg/dl Phosphorus (2.5-4.9) mg/dl Magnesium 2.3 (1.8-2.4) mg/dl Total Bilirubin 0.5 (0.2-1) mg/dl AST 26 (15-37) U/L ALT 20 (12-78) U/L Alkaline Phosphatase 91 (45-117) U/L Troponin I < 0.015 (0-0.045) ng/ml Total Protein 7.5 (6.4-8.2) gm/dl Albumin 3.2 L (3.4-5.0) gm/dl Globulin 4.3 H (2.5-4.0) gm/dl Albumin/Globulin Ratio 0.7 L (0.9-2) TSH (0.300-4.500) uIu/ml Free T4 (0.8-1.6) ng/dl Urine Color Urine Appearance (Clear) Urine pH (4.5-7.5) Ur Specific [place] (1.000-1.030) Urine Protein (Negative) Urine Glucose (UA) (Negative) Urine Ketones (Negative) Urine Blood (Negative) Urine Nitrite (Negative) Urine Bilirubin (Negative) Urine Urobilinogen (Negative) Ur Leukocyte Esterase (Negative) Blood Type Antibody Screen 01/13/19 01/13/19 01/13/19 Range/Units 11:30 11:30 12:55 WBC (4.8-10.8) K/uL RBC (4.2-5.4) M/uL Hgb (12.0-16.0) g/dL Hct (37-47) % MCV (80-100) fL MCH (25-34) pg MCHC (32-36) g/dL RDW Std Deviation (36.4-46.3) fL RDW Coeff of Roberto (11.5-14.5) % Plt Count (130-400) K/uL MPV (7.4-10.4) fL Immature Gran % (Auto) % Neut % (Auto) % Lymph % (Auto) % [place] % (Auto) % Eos % (Auto) % Baso % (Auto) % Immature Gran # (Auto) (0.00-0.02) K/uL Neut # (Auto) (1.4-6.5) K/uL Lymph # (Auto) (1.2-3.4) K/uL [place] # (Auto) (0.11-0.59) K/uL Eos # (Auto) (0-0.5) K/uL Baso # (Auto) (0-0.2) K/uL PT (9.0-12.0) Seconds INR (0.9-1.1) APTT (21.0-31.0) Seconds PTT Ratio Sodium (136-145) mmol/L Potassium (3.5-5.1) mmol/L Chloride (98-107) mmol/L Carbon Dioxide (21-32) mmol/L Anion Gap (3-11) BUN (7-18) mg/dl Creatinine (0.6-1.2) mg/dl Est Cr Clr Drug Dosing ml/min Est GFR ( Amer) Est GFR (Non-Af Amer) BUN/Creatinine Ratio (10-20) Glucose (70-99) mg/dl Calcium (8.5-10.1) mg/dl Phosphorus 3.2 (2.5-4.9) mg/dl Magnesium (1.8-2.4) mg/dl Total Bilirubin (0.2-1) mg/dl AST (15-37) U/L ALT (12-78) U/L Alkaline Phosphatase (45-117) U/L Troponin I (0-0.045) ng/ml Total Protein (6.4-8.2) gm/dl Albumin (3.4-5.0) gm/dl Globulin (2.5-4.0) gm/dl Albumin/Globulin Ratio (0.9-2) TSH 7.630 H (0.300-4.500) uIu/ml Free T4 1.09 (0.8-1.6) ng/dl Urine Color Yellow Urine Appearance Clear (Clear) Urine pH 6.0 (4.5-7.5) Ur Specific [place] 1.015 (1.000-1.030) Urine Protein Negative (Negative) Urine Glucose (UA) Negative (Negative) Urine Ketones Negative (Negative) Urine Blood Negative (Negative) Urine Nitrite Negative (Negative) Urine Bilirubin Negative (Negative) Urine Urobilinogen Negative (Negative) Ur Leukocyte Esterase Negative (Negative) Blood Type A Positive Antibody Screen NEGATIVE Imaging Data Radiologist's Impression: Radiology results as stated below per my review and the radiologist's interpretation: CT head/brain wo con CLINICAL HISTORY: 83 years-old Female with r/o cva. Acute strokelike symptoms TECHNIQUE: Multiple axial CT images of the head were obtained without contrast. A dose lowering technique was utilized adhering to the principles of ALARA. COMPARISON: CTA head and neck of same day, head CT 08/10/2017. FINDINGS: No acute intracranial hemorrhage, midline shift, intracranial mass, hydrocephalus, territorial ischemia or abnormal extra-axial collection. Age- related involutional changes with ex vacuo ventriculomegaly. Patchy white matter hypodensities suggestive of chronic microvascular ischemic disease redemonstrated. Encephalomalacia of the left frontal lobe espinoza radiata thinning into the lentiform nucleus compatible with remote infarct is unchanged. Cerebral vascular calcifications are noted. The calvarium is intact. Mastoid air cells are clear. Completely opacified and expanded right sphenoid sinus is unchanged. Soft tissues and orbits are unremarkable. IMPRESSION: 1. No acute intracranial abnormality. 2. Chronic findings as above. The above report was generated using voice recognition software. It may contain grammatical, syntax or spelling errors. Electronically signed by: Curtis Olivarez M.D. 01/13/2019 11:[address] angio neck with con, CT angio head w con CLINICAL HISTORY: 83 years-old Female with aphasia. Acute strokelike symptoms COMPARISON STUDY: Head CT of same day, CTA neck 03/15/2017 TECHNIQUE: Following the IV administration of 120 mL of Optiray 320, CT angiogram of the head and neck was performed from the aortic arch to the skull apex. Images are reviewed in the axial, sagittal, and coronal planes. 3-D MIPS images are created and assessed. IV contrast was administered without complication. All measurements were calculated based on NASCET criteria. A dose lowering technique was utilized adhering to the principles of ALARA. CT DOSE: 1110.76 mGy.cm FINDINGS: The opacified imaged pulmonary arteries appear unremarkable. Moderate to severe mixed plaque of the thoracic aortic arch. Ectasia of the aortic isthmus measures up to 3.4 cm transversely. Image bilateral subclavian arteries appear patent. Moderate mixed plaque involves the distal common carotid arteries bilaterally. Severe mixed plaque of the bilateral carotid bulbs and proximal internal carotid arteries results in less than 50% luminal narrowing bilaterally. Calcified plaque involves the cavernous and supraclinoid segments without high-grade stenosis. Streak artifact from dental amalgam hardware limits evaluation of the distal cervical segments of the internal carotid arteries. Moderate mixed plaque of the distal cervical segment right ICA is noted with a linear apparent filling defect of the mid lumen on image 266 series 6 which appears to be artifactual. 4 mm segment of high-grade stenosis involves the proximal to mid right M1 segment (image 94 series 5). Short segment moderate grade stenosis involves the proximal left M1 segment on image 98 series 5. High-grade stenosis at the origin of the left A1 segment, image 99 series 5. The anterior cerebral arteries are otherwise unremarkable. Anterior communicating artery appears normal. Calcified plaque at the origin of the right vertebral artery causes less than 50% luminal narrowing. There is mild multifocal luminal narrowing throughout the V4 segment right vertebral artery and basilar artery. The basilar artery is diminutive. Bilateral posterior cerebral arteries are patent. There is a focal area of high-grade stenosis within the posterior communicating artery on the left, image 85 series 5 and image 47 series 500 measuring approximately 3 mm in length. The vertebral arteries are codominant. The left vertebral artery terminates into the right PICA. Cerebral venous sinuses appear patent. Multinodular goiter. Mild bilateral bronchial wall thickening. No pneumothorax. Enlarged mediastinal lymph nodes include a precarinal lymph node which measures 1.5 cm in short axis. Multilevel degenerative changes of the spine. IMPRESSION: 1. Severe mixed plaque of the bilateral carotid bulbs results in less than 50% luminal narrowing bilaterally. 2. 4 mm segment of high-grade stenosis involves the proximal to mid right M1 segment. 3. Short segment moderate stenosis involves the proximal left M1 segment. 4. High-grade stenosis at the origin of the left A1 segment. 5. No aneurysm or dissection identified. 6. Additional findings as above. The above report was generated using voice recognition software. It may contain grammatical, syntax or spelling errors. Electronically signed by: Curtis Olivarez M.D. 01/13/2019 11:[address] angio neck with con, CT angio head w con CLINICAL HISTORY: 83 years-old Female with aphasia. Acute strokelike symptoms COMPARISON STUDY: Head CT of same day, CTA neck 03/15/2017 TECHNIQUE: Following the IV administration of 120 mL of Optiray 320, CT angiogram of the head and neck was performed from the aortic arch to the skull apex. Images are reviewed in the axial, sagittal, and coronal planes. 3-D MIPS images are created and assessed. IV contrast was administered without complication. All measurements were calculated based on NASCET criteria. A dose lowering technique was utilized adhering to the principles of ALARA. CT DOSE: 1110.76 mGy.cm FINDINGS: The opacified imaged pulmonary arteries appear unremarkable. Moderate to severe mixed plaque of the thoracic aortic arch. Ectasia of the aortic isthmus measures up to 3.4 cm transversely. Image bilateral subclavian arteries appear patent. Moderate mixed plaque involves the distal common carotid arteries bilaterally. Severe mixed plaque of the bilateral carotid bulbs and proximal internal carotid arteries results in less than 50% luminal narrowing bilaterally. Calcified plaq ue involves the cavernous and supraclinoid segments without high-grade stenosis. Streak artifact from dental amalgam hardware limits evaluation of the distal cervical segments of the internal carotid arteries. Moderate mixed plaque of the distal cervical segment right ICA is noted with a linear apparent filling defect of the mid lumen on image 266 series 6 which appears to be artifactual. 4 mm segment of high-grade stenosis involves the proximal to mid right M1 segment (image 94 series 5). Short segment moderate grade stenosis involves the proximal left M1 segment on image 98 series 5. High-grade stenosis at the origin of the left A1 segment, image 99 series 5. The anterior cerebral arteries are otherwise unremarkable. Anterior communicating artery appears normal. Calcified plaque at the origin of the right vertebral artery causes less than 50% luminal narrowing. There is mild multifocal luminal narrowing throughout the V4 segment right vertebral artery and basilar artery. The basilar artery is diminutive. Bilateral posterior cerebral arteries are patent. There is a focal area of high-grade stenosis within the posterior communicating artery on the left, image 85 series 5 and image 47 series 500 measuring approximately 3 mm in length. The vertebral arteries are codominant. The left vertebral artery terminates into the right PICA. Cerebral venous sinuses appear patent. Multinodular goiter. Mild bilateral bronchial wall thickening. No pneumothorax. Enlarged mediastinal lymph nodes include a precarinal lymph node which measures 1.5 cm in short axis. Multilevel degenerative changes of the spine. IMPRESSION: 1. Severe mixed plaque of the bilateral carotid bulbs results in less than 50% luminal narrowing bilaterally. 2. 4 mm segment of high-grade stenosis involves the proximal to mid right M1 segment. 3. Short segment moderate stenosis involves the proximal left M1 segment. 4. High-grade stenosis at the origin of the left A1 segment. 5. No aneurysm or dissection identified. 6. Additional findings as above. The above report was generated using voice recognition software. It may contain grammatical, syntax or spelling errors. Electronically signed by: Curtis Olivarez M.D. 01/13/2019 11:58 AM XR chest 1V portable HISTORY: 83 years-old Female aphasia acute strokelike symptoms COMPARISON: Chest radiograph 11/06/2018, CT abdomen and pelvis 06/02/2018 TECHNIQUE: Portable AP view of the chest FINDINGS: Cardiac silhouette is mildly enlarged, unchanged. Coronary arterial stent grafts noted. Calcified plaque of the thoracic aortic arch. Mild chronic interstitial coarsening without pneumothorax, pleural effusion or overt pulmonary edema. Degenerative changes of the shoulders and spine. IMPRESSION: No acute process. The above report was generated using voice recognition software. It may contain grammatical, syntax or spelling errors. Electronically signed by: Curtis Olivarez M.D. 01/13/2019 12:59 PM ECG Data Attestation: I personally reviewed and interpreted this ECG as follows: Indication: + weakness Rate (beats per minute): 87 Rhythm: + normal sinus ECG Intervals/blocks: + Normal QT-c (QTC is 495) ECG [place]: + Normal ECG ST segments: no ST depression and no ST elevation ECG Findings: no PACs and no PVCs Blood Pressure Blood Pressure Findings: Elevated blood pressure Blood Pressure Disposition: further management by hospitalist INES Magallon The patient is a pleasant 83-year-old woman with a past medical history of prior CVA with residual right-sided weakness, CAD with an STEMI in August 2017 status post PCI, hypertension, hyperlipidemia who presents emergency department with concern for strokelike symptoms/syncope which occurred prior to arrival in the setting of the reporting that the patient's right-sided weakness appeared worse this morning compared to last night and then subsequently upon e atcolin xiong with family began to have difficulty with speech and responsiveness per HPI. I did receive a med command call from the field regarding the patient's symptoms and a stroke alert was activated given unclear last known well which at that time was presumed to be at 8:30 AM when the patient took her shower. Patient went immediately to CT scan and upon my evaluation subsequently had returned to her recent baseline per the family at the bedside. She had no gross focal neuro deficits. CT head was negative for acute stroke or ICH. CTA of the head and neck did demonstrate severe stenosis involving the MCA M1 branch bilaterally but without occlusion. I did review these findings with tele-stroke neurology over the phone, Dr. Castillo, and findings do not indicate need for emergent endovascular intervention. However, in younger healthy patients an elective intervention could be considered if optimization of medical therapy is not effective. Recommends MRI for further evaluation of patient's episode. Thus, at this time no indication for emergent transfer to tertiary care facil ity. I did review the findings with the patient and family at the bedside. They are agreeable with admission. Otherwise the patient's evaluation was unremarkable. EKG without overt acute ischemia. Chest x-ray negative for acute process. WBC, 11, nonspecific. H/H within normal limits. Platelets 421 approximately prior range of values. Chemistry without acidosis. Cr 1.2 consistent with the patient's clinically dry appearance and slightly increased from patient's recent baseline. LFTs and electrolytes otherwise unremarkable. Troponin negative/undetectable. UA negative for infection. Case was discussed with Dr. Vergara, [facility] hospitalist, who will evaluate the patient for admission. Impression & Plan Syncope, Stroke-like symptoms, History of cardioembolic cerebrovascular accident (CVA), Dehydration Discharge Plan Visit Data *Final* Discharge Date/Time: 01/13/19 15:40 Chief Complaint: Stroke/CVA Symptoms Stated Complaint: stroke alert ED Provider: Omar Yeung Discharge Problem: Syncope, Stroke-like symptoms, History of cardioembolic cerebrovascular accident (CVA), Dehydration Patient Disposition: Admitted As Inpatient Discharge Instructions Interventions: ED Discharge Assessment Last Done: 01/13/19 15:40 Discharge Problem: Syncope Qualifiers: Syncope type: unspecified Qualified Code(s): R55 - Syncope and collapse The scribe's documentation has been prepared under my direction and personally reviewed by me in its entirety. I confirm that the note above accurately reflects all work, treatment, procedures, and medical decision making performed by me.
[2019-01-13] MEDS ORDERED: PHARMACIST DISCHARGE MED REC CONSULT PRN (16:24)
[2019-01-13] MEDS ORDERED: SODIUM CHLORIDE 0.9% 1000ML 1,000 ML IV SCH (16:24)
[2019-01-13] MEDS ORDERED: HydrALAZINE HCL 20 MG/ML VIAL IV PRN (16:24)
[2019-01-13] MEDS ORDERED: GADOBUTROL 65ML VIAL IV PRN (17:20)
--- NOTE | 2019-01-13 18:02 | Magnetic Resonance Report ---
Brain MRI WITH AND WITHOUT CONTRAST HISTORY: Unresponsiveness. Weakness. Assess for stroke TECHNIQUE: Multiplanar multisequence MRI of the brain was performed both before and after the intrave nous administration of contrast. COMPARISON STUDY: Head CT 01/13/2019. FINDINGS: There is no mass, hematoma, midline shift, or acute infarct. The paranasal sinuses are mildred r. The mastoid air cells are clear. The ventricles and sulci demonstrate moderate age-related involut ional changes. Scattered foci of T2 hyperintensity seen within the periventricular and subcortical wh ite matter are nonspecific but suggestive of moderate microvascular ischemic changes. The major vascu lar flow voids at the skull base are well-maintained. Old punctate lacunar infarcts within the left b veda ganglia are again noted. No abnormal enhancement. A T2 hyperintense, T1 hyperintense nonenhancin g expansile lesion within the right sphenoid sinus. This measures 3.2 cm. This remains stable compare d to a [address] Therefore, this favors a proteinaceous/hemorrhagic retention cyst. IMPRESSION: 1. No acute infarct. 2. Presumed moderate microvascular ischemic changes and moderate atrophy. 3. No change in the 3.2 cm T1 hyperintense nonenhancing lesion within the right sphenoid sinus. This favors a proteinaceous/hemorrhagic retention cyst. Electronically signed by: Kavin Holliday M.D. 01/13/2019 6:01 PM
[2019-01-13] MEDS ORDERED: NURSING DECISION MEDICATION ONE (19:31)
[2019-01-13] MEDS ORDERED: MICONAZOLE NITRATE POWDER 43 GM EXT PRN (19:36)
[2019-01-13] MEDS ORDERED: ACETAMINOPHEN 1,000 MG/100 ML VIAL IV PRN (20:00)
[2019-01-13] MEDS ORDERED: METOPROLOL SUCC 25MG EXT REL TAB PO SCH (21:00)
[2019-01-13] MEDS: HEPARIN SOD 5,000 UNIT/0.5 ML VIAL SQ SCH (21:13)
[2019-01-13] MEDS: OXYCODONE HCL IR 5 MG TAB (IMMEDIATE RELEASE) PO PRN (21:23)
[2019-01-13] MEDS ORDERED: CALCIUM CARBONATE 500 MG CHEWABLE TAB PO PRN (23:57)
[2019-01-14] MEDS: SIMETHICONE 80 MG CHEW PO PRN ×2 (01:25→07:46)
[2019-01-14 07:38] LABS: Basophils # (auto) 0.07 K/uL (0-0.2); Basophils % (auto) 0.8 %; Eosinophils # (auto) 0.13 K/uL (0-0.5); Eosinophils % (auto) 1.4 %; Hematocrit (blood only) 38.3 % (37-47); Hemoglobin 12.9 g/dL (12.0-16.0); Immature Granulocytes # (auto) 0.02 K/uL (0.00-0.02); Immature Granulocytes % (auto) 0.2 %; Lymphocytes # (auto) 2.74 K/uL (1.2-3.4); Lymphocytes % (auto) 30.5 %; Mean Corpuscular Hemoglobin 31.5 pg (25-34); Mean Corpuscular Hgb Conc 33.7 g/dL (32-36); Mean Corpuscular Volume 93.6 fL (80-100); Mean Platelet Volume 9.5 fL (7.4-10.4); Monocytes # (auto) 0.71 K/uL (0.11-0.59); Monocytes % (auto) 7.9 %; Neutrophils % (auto) 59.2 %; Platelet Count 429 K/uL (130-400); RDW Coefficient of Variation 13.6 % (11.5-14.5); RDW Standard Deviation 46.8 fL (36.4-46.3); Red Blood Count 4.09 M/uL (4.2-5.4); White Blood Count 8.97 K/uL (4.8-10.8)
[2019-01-14 08:04] LABS: BUN Creatinine Ratio 22.4 (10-20); Calcium 9.6 mg/dl (8.5-10.1); Creatinine Clr Calc Pharmacy 45.5 ml/min; Est GFR (African American) 64.3; Est GFR (Non-African American) 55.5; Potassium 4.1 mmol/L (3.5-5.1)
[2019-01-14 08:11] LABS: Estimated Average Glucose 114 mg/dl; Hemoglobin A1C 5.6 % (4.5-5.6)
[2019-01-14] MEDS ORDERED: CLOPIDOGREL BISULFATE 75 MG TAB PO SCH (09:00)
[2019-01-14] MEDS ORDERED: ATORVASTATIN 40 MG TAB PO SCH (09:00)
[2019-01-14] MEDS ORDERED: ASPIRIN 81 MG ECTAB PO SCH (09:00)
--- NOTE | 2019-01-14 09:34 | Electroencephalogram ---
EEG Procedure Note Date of Service January 14, 2019 Start / End Times Start Time: 06 End Time: 06 Referring Physician Rosalinda Rutherford History Patient is an 83-year-old with acute encephalopathy and seizure like activity. Home Medication List Home Medications Medication Instructions Recorded Confirmed Type calcium carbonate [Calcium 500] 500 mg PO QAM #0 09/02/12 01/13/19 History cetirizine 10 mg PO HS #0 tab 09/02/12 01/13/19 History ascorbic acid (vitamin C) 500 mg PO QAM #0 06/22/13 01/13/19 History cholecalciferol (vitamin D3) 2,000 unit PO HS #0 cap 06/22/13 01/13/19 History aspirin [Aspirin Low Dose] 81 mg PO QAM 11/22/17 01/13/19 History cnwzzrea-djw-VC-lycopen-lutein 1 tab PO QAM 05/30/18 01/13/19 History [Centrum Silver] nitroglycerin 0.4 mg SUBLINGUAL UD PRN 07/21/18 01/13/19 History clopidogrel 75 mg tablet 75 mg PO QAM #90 tab 10/16/18 01/13/19 Rx colostomy bags 2 3/4" #30 ea 10/22/18 01/14/19 Rx losartan 50 mg tablet 50 mg PO QAM #30 tab 10/22/18 01/13/19 Rx ostomy supplies 2 3/4" #30 ea 10/22/18 01/14/19 Rx atorvastatin 40 mg PO QAM 11/06/18 01/13/19 History mirabegron 50 mg tablet,extended 50 mg PO HS #90 tab 11/12/18 01/13/19 Rx release 24 hr hydrocodone 5 mg-acetaminophen 325 0.5 tab PO DAILY PRN #90 tab 11/22/1809/24 Rx mg tablet solifenacin 10 mg tablet 10 mg PO DAILY #90 tab 11/28/18 01/13/19 Rx metoprolol succinate 25 mg PO HS 01/13/19 01/13/19 History polyethylene glycol 3350 17 gm PO DAILY 01/13/19 01/13/19 History Inpatient Medication List Aspirin (Ecotrin Ectab) 81 mg PO QAM [facility] Stop: 02/13/19 08:59 Last Admin: 01/14/19 07:47 Dose: 81 mg Documented by: [id number] Atorvastatin Calcium (Lipitor) 40 mg PO [facility] Stop: 02/13/19 08:59 Last Admin: 01/14/19 07:48 Dose: 40 mg Documented by: [id number] Calcium Carbonate (Tums) 1,500 mg PO Q4H PRN PRN Reason: Indigestion Stop: 02/12/19 23:56 Last Admin: 01/14/19 00:37 Dose: 1,500 mg Documented by: [id number] Clopidogrel Bisulfate (Plavix) 75 mg PO [facility] Stop: 02/13/19 08:59 Last Admin: 01/14/19 07:47 Dose: 75 mg Documented by: [id number] Gadobutrol (Gadavist 65ml) 8.5 ml IV ONCE PRN PRN Reason: Interaction Checking Stop: 01/17/19 17:19 Last Admin: 01/13/19 17:21 Dose: 8.5 ml Documented by: [id number] Heparin Sodium (Porcine) (Heparin Sodium (Porcine)) 5,000 units SQ Q12 [facility] Stop: 02/12/19 20:59 Last Admin: 01/13/19 21:13 Dose: 5,000 units Documented by: [id number] Cosigned by: [id number] Ioversol (Optiray 320 125ml) 120 ml IV ONCE PRN PRN Reason: Interaction Checking Stop: 01/17/19 11:23 Last Admin: 01/13/19 11:24 Dose: 120 ml Documented by: [id number] Metoprolol Succinate (Toprol Xl) 25 mg PO [facility] Stop: 02/12/19 20:59 Last Admin: 01/13/19 21:13 Dose: 25 mg Documented by: [id number] Oxycodone HCl (Roxicodone Immediate Rel) 5 mg PO Q6H PRN PRN Reason: Pain Stop: 01/27/19 16:23 Last Admin: 01/13/19 21:23 Dose: 5 mg Documented by: [id number] Simethicone (Mylicon) 80 mg PO Q6H PRN PRN Reason: Flatulence Stop: 02/12/19 23:56 Last Admin: 01/14/19 07:46 Dose: 80 mg Documented by: [id number] Admin: 01/14/19 01:25 Dose: 80 mg Documented by: [id number] Discontinued Medications Sodium Chloride (Nss) 500 mls @ 999 mls/hr IV .Q31M ONE Stop: 01/13/19 11:49 Last Infusion: 01/13/19 13:54 Dose: 0 mls/hr Documented by: [id number] Admin: 01/13/19 12:19 Dose: 999 mls/hr Documented by: [id number] Acetaminophen (Ofirmev) 1,000 mg in 100 mls @ 400 mls/hr IV NOW STA Stop: 01/13/19 12:40 Last Infusion: 01/13/19 13:55 Dose: 0 mls/hr Documented by: [id number] Admin: 01/13/19 12:36 Dose: 400 mls/hr Documented by: [id number] Sodium Chloride (Nss 1000ml) 1,000 mls @ 80 mls/hr IV .[id number] [facility] Stop: 01/14/19 04:53 Last Admin: 01/13/19 19:59 Dose: Not Given Documented by: [id number] Description This is a 21 electrode EEG with a single channel dedicated to limited EKG. The electrodes were placed in accordance with the International 10-20 system. Interpretation The predominant background activity consists of an irregular 8 Hz activity, of up to 50 mV in amplitude,seen symmetrically distributed over the posterior head regions bilaterally spreading anteriorly bilaterally.. This activity attenuates some with eye-opening and other alerting procedures. Admixed with this background activity is some low amplitude 5-6 hertz activity seen intermittently in all head regions. Photic stimulation was performed and elicited no change in the background activity and no abnormal responses were seen. Hyperventilation was not performed. A mild to moderate amount of muscle and movement artifact activity contaminated the recording, but did not hinder interpretation to any significant degree. Throughout the waking portion of the recording, no focal abnormalities or potentially epileptogenic discharges are seen. The patient entered the drowsy state with no further activation. In summary, this EEG was mildly abnormal and showed some mild generalized dysrhythmia the diffuse nonspecific nature. No focal abnormalities were noted and no potentially epileptogenic discharges were seen. Clinical Correlation The abscence of potentially epileptogenic activity does not exclude a seizure disorder, since interictally, EEGs can be normal. Clinical correlation is required. The mild background slowing is consistent with a mild encephalopathy which could be due to a wide variety of causes. [facility] EEG Procedure Codes Indication for Procedure (1) Syncope: (2) Acute encephalopathy: (3) Seizure-like activity: Neurology Neurology: [id number] EEG include record awake & drowsy
--- NOTE | 2019-01-14 10:08 | Neurology Consultation ---
Date of Consultation January 14, 2019 Assessment & Plan (1) Acute encephalopathy: (2) Seizure-like activity: (3) Cerebrovascular disease: Patient had an episode January 13 of feeling very ill and tired, going out to eat, and having some brief nonspecific right hand twitching and an unresponsive episode where she slumped over in the chair. There was no seizure activity during this and she did not really come around until she was laid down flat. Currently she has a normal mental status exam doing quite well considering her age in stroke in the past. She has some fatigue but has no speech problems currently and no new focal abnormalities on exam. She does have some mild right-sided weakness which is secondary to her previous hemorrhagic stroke of early 2017. She is on aspirin and Plavix and her risk factors for stroke include hypertension, dyslipidemia, and significant cerebral vascular disease with multiple stenoses in the head and neck. She has a previous deep left hemispheric stroke from early 2017. This is unchanged on MRI and MRI shows no new findings. There is extensive old small vessel ischemic disease. EEG showed some mild nonspecific generalized slowing consistent with encephalopathy but no focal findings or potentially epileptogenic discharges. Laboratory studies reveals some significant hypothyroidism by an elevated TSH. Recommendations: 1. Control blood pressure any for a mean arterial pressure of 95-100. 2. Control lipids, but in lieu of her previous hemorrhagic stroke, she is not a high dose statin candidate. 3. Continue 81 mg aspirin tablet 75 mg clopidogrel daily. 4. Initiate Synthroid and follow TSH. 5. Increase activity as able. 6. I see no need for additional neurologic testing or treatment changes at this time otherwise. Overall, I spent a total of 90 minutes with this case including review of records, review of MRI films, direct evaluation the patient at bedside, and discussing the case with the patient at bedside, her and daughter at bedside, Dr. Santos, and Melva HOGUE, including differential diagnosis and treatment options. History of Present Illness Reason for Consultation: An 83-year-old, who I was asked to see at the request of Dr. Rutherford for neurologic consultation regarding unresponsive episode. Requesting Physician: Dr. Rutherford Attending Physician: Zain Santos MD History of Present Illness Patient has a history of hypertension and dyslipidemia. Should history of breast cancer but there is been no recurrence. She has hereditary spherocytosis and is post splenectomy. Sometime in late January of 2018 she had some issues with increased sleepiness and fatigue and possibly some confusion. She did not have any syncope. By March she had an MRI which showed left periventricular hemorrhagic stroke (likely secondary to hypertension. She had mild right soila paresis and poor gait because of this with some cognitive changes ever since. She has short-term memory problems by history. An EEG at that time showed some left hemisphere slowing consistent with a stroke. She has been on aspirin and Plavix since. Six days ago she initiated VESIcare and too good for 3 days but felt ill on it so she stopped it 3 days ago. She woke up the morning of January 13 feeling ill. She was tired and weak in general. She had a headache. Her noted that when he tried to get her cleaned up around 830 in the morning she was weak in general but perhaps the right side was a little weaker than usual also. She when out to eat breakfast around 930 and around 950 after having eaten some of her breakfast family noted that she was twitching a little bit with her right hand and she stopped talking. She slumped her head down and did not respond. Her eyes were half open. She was not stiffening or jerking and had no tongue biting or incontinence. She was kept in that position until the ambulance personnel arrived and then she came to in the ambulance. She arrived at the emergency room at 11:34 a.m. with a temperature 36.4, pulse 87, blood pressure 138/81 and O2 saturation 95%. She was talking and responding in the emergency room but occasionally would repeat. She had some subtle weakness of the right arm and leg but no other fo jeremiah neurologic findings. White what count was elevated 11.3 otherwise CBC was unremarkable. Chem profile revealed mildly elevated BUN. TSH was elevated at 7.6. Urinalysis and chest x- ray were unremarkable. CT scan of the head showed no acute changes and old left sided stroke. CT angiography of the head neck revealed less than 50% stenosis of the carotid arteries bilaterally and high-grade stenosis in the right M1 and left A1 segment. The left M1 my had moderate stenosis. MRI of the brain showed no acute stroke but moderate to extensive atrophy and ischemia in general. There is an old right sphenoid sinus retention cyst. EEG this morning shows some very mild nonspecific slowing during the wakeful state with no focal abnormalities or potentially epileptogenic discharges. ELVIS is pending. This morning she is thinking better and not confused but feels tired. Her speech is better. Blood pressure is 178/102 and white count was normal this morning. Allergies Allergy/AdvReac Type Severity Reaction Status Date / Time vancomycin Allergy Intermediate rash Verified 11/14/18 15:54 diphenhydramine Allergy Mild Redness Verified 11/14/18 15:54 amoxicillin Allergy Unknown bad Verified 11/14/18 15:54 reaction/glands swollen puffed up clavulanic acid Allergy Unknown Unknown Verified 11/14/18 15:54 codeine Allergy Unknown Unknown Verified 11/14/18 15:54 Home Medications Home Medications Medication Instructions Recorded Confirmed Type calcium carbonate [Calcium 500] 500 mg PO QAM #0 09/02/12 01/13/19 History cetirizine 10 mg PO HS #0 tab 09/02/12 01/13/19 History ascorbic acid (vitamin C) 500 mg PO QAM #0 06/22/13 01/13/19 History cholecalciferol (vitamin D3) 2,000 unit PO HS #0 cap 06/22/13 01/13/19 History aspirin [Aspirin Low Dose] 81 mg PO QAM 11/22/17 01/13/19 History hebheybk-ees-NA-lycopen-lutein 1 tab PO QAM 05/30/18 01/13/19 History [Centrum Silver] nitroglycerin 0.4 mg SUBLINGUAL UD PRN 07/21/18 01/13/19 History clopidogrel 75 mg tablet 75 mg PO QAM #90 tab 10/16/18 01/13/19 Rx colostomy bags 2 3/4" #30 ea 10/22/18 01/14/19 Rx losartan 50 mg tablet 50 mg PO QAM #30 tab 10/22/18 01/13/19 Rx ostomy supplies 2 3/4" #30 ea 10/22/18 01/14/19 Rx atorvastatin 40 mg PO QAM 11/06/18 01/13/19 History mirabegron 50 mg tablet,extended 50 mg PO HS #90 tab 11/12/18 01/13/19 Rx release 24 hr hydrocodone 5 mg-acetaminophen 325 0.5 tab PO DAILY PRN #90 tab 11/22/18 01/13/19 Rx mg tablet solifenacin 10 mg tablet 10 mg PO DAILY #90 tab 11/28/18 01/13/19 Rx metoprolol succinate 25 mg PO HS 01/13/19 01/13/19 History polyethylene glycol 3350 17 gm PO DAILY 01/13/19 01/13/19 History Patient History Medical History Breast cancer (Resolved) CAD (coronary artery disease) (Chronic) NSTEMI in 08/2017; 2 JOHN to LAD and 1 to LCx Carotid artery stenosis Cataract (Resolved) Cerebrovascular disease Diverticulitis (Resolved) Diverticulosis of colon (Resolved) History of cerebrovascular accident (Resolved) History of open sigmoidectomy (Resolved) Hypercholesterolemia (Chronic) Hypertension (Chronic) Hypertensive crisis (Resolved) Non-hemorrhagic cerebrovascular accident (CVA) (Resolved) Pancreatitis (Resolved) Perforated bowel (Resolved) Pseudoaneurysm (Resolved) Secondary thrombocytosis (Chronic) Spherocytosis, hereditary (Chronic) Travelers' diarrhea (Resolved) Surgical History History of arthroscopy of right knee History of breast surgery History of section (Resolved) History of section History of cholecystectomy History of colectomy (Resolved) History of colonoscopy History of colposcopy History of dilation and curettage History of knee replacement (Resolved) History of lumpectomy (Resolved) History of splenectomy (Resolved) History of splenectomy (Resolved) History of tonsillectomy and adenoidectomy History of tubal ligation Hx of cholecystectomy (Chronic) S/P angioplasty with stent (Resolved) Status post breast lumpectomy (Resolved) Family History Unknown Heart disease Diabetes Breast cancer Uncle Colorectal cancer Mother , age 54 of complications post splenectomy No problems noted. 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 Other Information That Helps Us Care for You: No Feels Safe at Home: Yes Safety Concerns: Feels Safe At This Time Smoking Status: Never smoker Second Hand Exposure: Yes ; Hx Alcohol Use: No Hx Substance Use: No Review of Systems Constitutional: + fatigue and + weakness; no fever Eyes: no diplopia, no eye pain and no worsening vision Ear, Nose, Mouth, Throat: no ear pain, no tinnitus, no hearing loss, no dizziness, no snoring, no hoarseness and no dysphagia Respiratory: no cough and no dyspnea Cardiovascular: no chest pain, no palpitations and no lightheadedness Gastrointestinal: no abdominal pain, no nausea and no vomiting Genitourinary: no dysuria, no urinary frequency and no urinary incontinence Musculoskeletal: no back pain, no neck pain, no radicular pain, no joint pain and no myalgia Integumentary: no rash and no lesions Neurologic: + localized weakness and + memory loss; no gait abnormality, no generalized weakness, no tingling, no numbness, no tremor(s), no abnormal movements, no headache(s), no abnormal speech and no confusion Psychiatric: no depression, no irritability, no anxiety, no difficulty concentrating, no confusion and no hallucinations Endocrine: + fatigue; no flushing Hematologic / Lymphatic: no easy bleeding and no easy bruising Allergy / Immunological: no urticaria and no problem reported Physical Exam Physical Exam: The patient is right-handed. The patient is awake, alert, and attentive. Speech is normal without any aphasia or dysarthria. She can name objects, repeat phrases, and has normal spontaneous speech. Mentation and thought processes are intact, with orientation to person, place and time, and normal fund of knowledge. Attention and concentration are normal. Mood and affect are normal and appropriate. General appearance and grooming are normal. Short and long-term memory are intact to conversation. She has fatigue however. The discs are sharp with positive venous pulsations bilaterally. There are no exudates, hemorrhages, or blood vessel changes seen. Pupils are 4 mm bilaterally and reactive to light. Extraocular eye muscles are intact without nystagmus. Visual acuity and visual ham seem normal grossly to confrontation. There are no deficits to sensation in the face in all 3 distributions of the fifth cranial nerve bilaterally. Corneal reflexes are positive bilaterally. Facial strength and symmetry was normal bilaterally. Hearing seems normal to whisper and finger rub bilaterally. Palate moves well without asymmetry. There is normal sternocleidomastoid and trapezius (shoulder shrug) strength bilaterally. Tongue is midline with good strength bilaterally. Neck has a full range of motion without discomfort. There are no cervical bruits bilaterally. There are no cranial or ocular bruits. Heart is without murmur. There is a regular rhythm and rate. Cervical, thoracic, and lumbar spine are nontender to palpation. Gait is not tested as she is wheelchair bound and stance is reasonable in the chair. With outstretched arms there is slight drift in the right upper extremity. There are no resting, postural, or action tremors. There is no ataxia with finger to nose testing. There is decreased facility in the right hand compared to the left which seems normal. No other abnormal involuntary movements are noted. Motor strength is 5/5 diffusely in the left arm and leg both proximally distally. The right arm is 4+/5 diffusely and the right leg is 4/5 diffusely. The limbs have good tone without rigidity or spasticity. There is no atrophy noted in the muscles. Muscle bulk is normal, there is no tenderness to palpation, no myotonia to percussion, and no fasciculations seen. Sensory examination is intact to touch and pin throughout all 4 limbs diffusely. Reflexes are 1/4 in the biceps, triceps, brachioradialis, quadriceps, and Achilles tendons bilaterally. There is no clonus bilaterally. Toes are downgoing with plantar stimulation bilaterally. Peripheral pulses are present and of normal quality distally in all 4 limbs. There is no peripheral edema noted in the limbs. Results & Data Vital Signs (Past 12 Hours) Vital Signs Temp Pulse Pulse Resp BP BP Pulse Ox 01/14/19 07:24 36.7 C 78 16 176/102 H 178/102 H 93 01/14/19 04:00 36.6 C 72 20 167/90 H 94 01/14/19 00:00 80 01/13/19 22:53 36.6 C 79 18 138/70 93 Diagnostic Findings MR brain wo con HISTORY: Mental status change ams, speech issues TECHNIQUE: Multiplanar multisequence MRI of the brain was performed without the use of contrast. COMPARISON STUDY: None. FINDINGS: There are no areas of restricted diffusion to suggest acute infarction. The midline structures are intact. The paranasal sinuses are clear. The mastoid air cells are clear. The ventricles and sulci are within normal limits for age. There is no mass, hematoma, midline shift. The major vascular flow-voids at the skull base are well maintained. Coronal FLAIR images demonstrate several very small foci of nonspecific increased signal right occipital lobe. IMPRESSION: No acute intracranial abnormality. Several very small foci of increased signal right occipital lobe. PG Care Time/CCT Total # of Minutes Spent Total Time Spent with Patient: Total time spent is greater than 50% in coordination of care (as documented) at patient's floor/unit and/or counseling patient:
[2019-01-14] MEDS: HEPARIN SOD 5,000 UNIT/0.5 ML VIAL SQ SCH (11:01)
[2019-01-14] MEDS: OXYCODONE HCL IR 5 MG TAB (IMMEDIATE RELEASE) PO PRN (11:38)
--- NOTE | 2019-01-14 14:27 | Discharge Summary ---
Date of Service January 14, 2019 Admission HPI Per Admitting Provider Mrs. Grace is an 83 year old female with past medical history of CAD, HTN, HLD, Spherocytosis s/p splenectomy, CVA, CKD Stage III, Breast Cancer, Spinal stenosis, bowel perforation s/p colostomy placement who presented with weakness and syncope. Pt. had a CVA in the spring and has had issues with residual right sided weakness following this episode. Her helps her ambulate/perform ADLs at home. She woke up this morning and had trouble getting out of bed. Pt. was able to eventually take a shower/get dressed and went to breakfast with her family. She complained of nausea and general malaise at [facility] but ate most of her meal. At one point, around ~10:30-10:45 am, the patient had LOC and slumped over. After regaining consciousness, she did not follow verbal commands for ~45 minutes until the ambulance arrived and transported her to the hospital. Pt. regained her speech/followed commands by the time she arrived at the ER. Pt. has been repeating things in the ER but does not have slurred speech, vision changes, increased weakness in extremities, facial drooping. Does c/o of a headache; no improvement with Tylenol IV. Has left shoulder/arm and neck pain but denies chest pain -- h/o CAD s/p stents x3 in August 2017. Has an ostomy, formed output noted but does c/o pain at ostomy site. Majority of history was obtained from her two family members present at bedside. ER course: CTA of neck showed stenosis -- case was discussed with telestroke at [facility], pt. would not qualify for intervention at this time due to age. CT head was negative. Labs showed mild leukocytosis and acute renal failure. U/a was negative. EKG with no acute ST-T wave changes; Trop was negative. Principal Diagnosis Syncope Discharge Exam Constitutional WD/WN, vitals as above Respiratory normal respiratory effort, lungs clear to auscultation Cardiovascular RRR, no murmur, no edema Gastrointestinal (Abdomen) Inspection/Auscultation: abdomen normal to inspection and normal bowel sounds; abdomen not distended Percussion/Palpation: abdomen soft; abdomen nontender Musculoskeletal baseline mild weakness right side due to previous stroke. Skin no rashes, warm and dry Neurologic CN's II-XI intact bilaterally Psychiatric A+Ox3, euthymic affect Discharge Data Allergies Allergy/AdvReac Type Severity Reaction Status Date / Time vancomycin Allergy Intermediate rash Verified 11/14/18 15:54 diphenhydramine Allergy Mild Redness Verified 11/14/18 15:54 amoxicillin Allergy Unknown bad Verified 11/14/18 15:54 reaction/glands swollen puffed up clavulanic acid Allergy Unknown Unknown Verified 11/14/18 15:54 codeine Allergy Unknown Unknown Verified 11/14/18 15:54 Consultations 01/13/19 12:26 ED Decision to Admit Stat 01/13/19 16:24 Consult Case Management - Discharge Planning Routine Consult Neurology Routine Ordered Studies 01/13/19 11:18 CT head/brain wo con Stat 01/13/19 11:19 CT angio head w con Stat CT angio neck with con Stat 01/13/19 16:24 MR brain wo/w con Urgent Hospital Course (1) Syncope: - Presented with syncopal/unresponsive episode at breakfast day of admission and subsequently had work up to rule out stroke or seizure activity concern for acute CVA due to multiple risk factors vs. seizure activity. 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 Appears that this episode was likely due to hypotension. Patient had been feeling a little under the weather and tired from travel to and from [place] over over the past few days and was not taking in as much po resulting in mild dehydration. She has not had any leg swel ling or leg pain or sob to make one concerned for blood clots following travel. Today she reports feeling back to her normal self. PT/OT carlos enriqueals felt she was at her baseline. - Head CT negative for acute but shows old stroke, no acute stroke on MRI head; Head/neck CTA report as below: 1. Severe mixed plaque of the bilateral carotid bulbs results in less than 50% luminal narrowing bilaterally. 2. 4 mm segment of high-grade stenosis involves the proximal to mid right M1 segment. 3. Short segment moderate stenosis involves the proximal left M1 segment. 4. High-grade stenosis at the origin of the left A1 segment. 5. No aneurysm or dissection identified. - Echo showed no changes from previous evaluation, normal EF, no significant aortic stenosis, no thrombus, no ASD, PFO was not assessed. No events on telemetry. Could consider outpatient Holter monitor however patient reports she has had one within the last two years - Hemoglobin A1c 5.6 - Consulted neurology for evaluation - neuro recommendations: Control blood pressure, continue statin but due to history of hemorrhagic stroke is not a candidate for high dose statin, continue ASA and clopidegral, no further neurologic testing. They also recommend treating for hypothyroid. Will defer to pcp to recheck thyroid in 3 weeks and decide on initiating therapy. (2) History of cerebrovascular accident: - Hemorrhagic CVA, in spring. Was seen by neurology as an outpatient with an outpatient work-up after having a similar episode of unresponsiveness followed by 2 weeks of decreased cognition and visual changes as per patient. She was then found to have a subacute stroke on CT scan of the head, was seen by neurology and had an MRI of the brain which did show evidence of hemorrhagic stroke and then this resolved She was started on Plavix at that time by neurology. Several months later, she then had her NSTEMI and was started on dual antiplatelet therapy and statin - Continue ASA, Plavix and statin as prescribed. (3) Left arm pain: - C/o left arm/shoulder pain on admission, no longer complaining of shoulder pain today - EKG negative; trops negative x 3, no changes on echo from previous (4) Acute renal failure: - Creatinine 1.22 on labs, likely prerenal related to dehydration. Res olved with IVF (5) Urinary incontinence: - Follows with urology. - Continue Myrbetriq as prescribed. (6) Stage III chronic kidney disease: - Renally dose all meds. (7) Pulmonary nodules: - Followed as outpatient. (8) Hypercholesterolemia: Lipid panel with normal cholesterol, elevated triglycerides - Continue ASA and statin as prescribed, low fat heart healthy diet (9) Hypertension: - Continue Metoprolol as prescribed. - Held Losartan to allow for permissive hypertension but can resume on discharge (10) CAD (coronary artery disease): - S/p atypical NSTEMI, LAD JOHN x 2, LCx JOHN in August 2017. With left shoulder drcc-hcaf-nd as above ECG without evidence of ischemia here - Continue ASA, statin, Plavix, metoprolol. (11) Breast cancer: - >5 years ago; s/p lumpectomy and radiation therapy. (12) Colostomy in place: - Due to h/o bowel perforation. - Currently has formed output, will monitor. (13) Thyroid disorder: - TSH 7.630 -- h/o abnormal TSH but has never been started on thyroid replacement. - Did have multinodular goiter noted on imaging. - Recommend f/u TSH in 3-4 weeks, will likely require Synthroid. (14) Spherocytosis, hereditary: - S/p splenectomy. (15) Obesity: - BMI 35.6. - Encourage weight loss and exercise. (16) Carotid artery stenosis: Noted to be less than 50% bilaterally on CT angiogram of the neck -Continue aspirin, Plavix, statin (17) Cerebrovascular disease: With multiple areas of stenoses through the cerebral arteries noted as above -Medical management as above No role for intervention as per telemetry stroke consultation at [place] (18) Leukocytosis: mild elevation on admission, resolved spontaneously. CXR without evidence of infection. U/A without evidence of infection. Afebrile. No abdominal pain or diarrhea. She had some mild nausea over the past couple of days but no further nausea today and no vomiting (19) Thrombocytosis: acute phase reactant with very mild elevation to 429 Recommend follow up with pcp (20) DVT prophylaxis: - SCDs; Heparin q12hr inpatient Total Time Total Time Spent Total Time Spent (In Minutes): greater than 30 minutes Discharge Plan Discharge Items Patient Disposition: Home - Home Health Services Reason For Visit: CVA Discharge Diagnosis: Syncope Activity: Resume your previous activity Non-emergency contact: Primary Care Provider Call non-emergency contact if: you have any medication questions and your symptoms worsen Follow-up/Referrals: Madai Leonard CRNP [Primary Care Provider] - 01/18/19 11:00 am (Please, follow up at LENNIE Leonard's office with her associate, Astrid Jeter PA-C, on MondayJanuary 18 at 11:00 am. *If you need to change this appointment, call their office at [phone].) Diet: Heart Healthy and Low Fat Addtl Attending Provider Instructions: (1) Syncope (fainting): Your initial workup was to evaluate for the possibility of a stroke. Your MRI and CT of your head did not show any acute (new) stroke. The CT of your neck vasculature did show some narrowing of your blood vessels but per the consultation with [facility] neurology at the time of your admission, no role for intervention in this at this time. Your EEG did not show any seizure activity. Your echocardiogram did not show any change from previous studies. Your troponin (cardiac marker indicating injury to the heart) remained normal. You did not have any cardiac events on the telecommunications line mechanic - continue Atorvastatin 40 mg daily, aspirin 81 mg daily and Plavix 75 mg daily as prescribed. - Home health PT/OT will evaluate and treat you - you should see your primary care provider to follow up within about a week. - please take your blood pressure every day and keep a log to bring with you to your primary care provider. (2) Acute renal failure: - you had a very mild change in your kidney function likely due to dehydration which was resolved with IV fluids. (3) Hypercholesterolemia/ elevated triglycerides: Your lipid panel showed normal cholesterol but elevated triglycerides at 175. - Continue aspirin and statin as prescribed. - eat a low fat, heart healthy diet (4) Elevated thyroid stimulating hormone: Your TSH was 7.630 which is high and could indicate that your thyroid is not p roducing enough hormone. You were also noted to have a multinodular goiter noted on imaging. - Recommend follow up TSH in 3-4 weeks. You may need to be started on thyroid hormone. Please discuss this with your primary care provider Pending Studies at Discharge: No Stand-Alone Forms: [facility], Smoking Cessation Medications and DC Order Prescriptions: Continued calcium carbonate [Calcium 500] 500 mg calcium (1,250 mg) Tablet 500 mg PO QAM Qty: 0 RF: 0 cetirizine 10 mg Tablet 10 mg PO HS Qty: 0 RF: 0 ascorbic acid (vitamin C) 500 mg Tablet 500 mg PO QAM Qty: 0 RF: 0 cholecalciferol (vitamin D3) 2,000 unit Tablet 2,000 unit PO HS Qty: 0 RF: 0 (DME) New Image Drainable Lock N Rol 2 3/4 " misc See Dose Instructions .ROUTE .MEDSUPPLY Qty: 30 RF: 5 losartan 50 mg tablet 50 mg PO QAM Qty: 30 RF: 5 (DME) New Image Skin Barrier-Flange 2 3/4 " misc See Dose Instructions .ROUTE .MEDSUPPLY Qty: 30 RF: 5 hydrocodone-acetaminophen 5-325 mg tablet 0.5 tab PO DAILY PRN (Reason: Pain) Qty: 90 RF: 0 clopidogrel 75 mg tablet 75 mg PO QAM Qty: 90 RF: 3 solifenacin [Vesicare] 10 mg tablet 10 mg PO DAILY Qty: 90 RF: 3 Myrbetriq 50 mg tablet extended release 24 hr 50 mg PO HS Qty: 90 RF: 1 aspirin [Aspirin Low Dose] 81 mg Tablet,Delayed Release (Dr/Ec) 81 mg PO QAM RF: 0 nitroglycerin 0.4 mg tablet, sublingual 0.4 mg sublingual UD PRN (Reason: Chest Pain) RF: 0 Centrum Silver 0.4-300-250 mg-mcg-mcg Tablet 1 tab PO QAM RF: 0 atorvastatin 40 mg tablet 40 mg PO QAM RF: 0 metoprolol succinate 25 mg tablet extended release 24 hr 25 mg PO HS RF: 0 polyethylene glycol 3350 17 gram/dose powder 17 gm PO DAILY RF: 0 Discharge Orders: Discharge Order (Routine); Ordered 01/14/19 Ordered By: Melva Gregg Admission Data Admit Date/Time: 01/13/19 14:13 Attending Provider: Zain Santos Admit Provider: Vivian Hein Primary Care Provider: Madai Leonard Other Providers: Fermin Srivastava ; Zain Santos Other Interventions: Discharge Summary Assessment (RN) Last Done: 01/14/19 14:46 DC Date/Time DO NOT enter until pt leaves facility: 01/14/19 16:11 Supervising Physician Co-Signing Physician Notes I supervised Melva Gregg NP on this patient's care. I examined the patient today independently of her. I discussed the plan of care with her with the plan being as written in her note except for any following changes/exceptions: None. Doing well without any symptoms. Seen by neuro who do not feel this was a TIA or stroke-related issue. Will follow up with PCP.
[2019-01-14] MEDS ORDERED: STROKE PATIENT DISCHARGE STA (15:18)
[2019-01-14] MEDS ORDERED: MIRABEGRON ER 25 MG TAB PO SCH (21:00)
== END 2019-01-14 16:11 | disposition home health service (06) ==
LOC: ED 11:09 → 2W 11:16 → SUATTDRO 14:13 → 2W 15:40

== ENCOUNTER 2019-12-10 09:11 | Observation (INO) ==
[2019-12-10] MEDS ORDERED: ONDANSETRON INJ 2 MG/ML 2 ML VIAL IV STA (09:40)
[2019-12-10] MEDS ORDERED: ACETAMINOPHEN 325 MG TAB PO STA (09:40)
[2019-12-10] MEDS ORDERED: MoRPHine SULFATE 2 MG/ML CARP IV STA (09:40)
--- NOTE | 2019-12-10 09:40 | Emergency Department Note ---
Impression & Plan Chest pain, Syncope, Acute leg pain ED Provider Note NAME: FLO DYE AGE: 84 SEX: F : 1935 ARRIVES VIA: Walk-In INFORMANT: Patient ED PROVIDER(S): West James DO CHIEF COMPLAINT: Left leg pain HPI: Patient is an 84-year-old female who presents ER for left lower extremity pain. It started this morning when she woke up. She notes she normally has p ain in her right leg. Denies any tingling or numbness. She does have paresthesias in the bilateral toes which is normal. Patient denies any cough or runny nose. No chest pain or shortness of breath. No other exacerbating or remitting factors. Patient normally walks with a walker. She notes that the pain is significantly worse when walking but is nonexistent when she is at rest. The majority of the pain is in her left knee. She does have some in her left hip as well but that has dissipated. She denies any new swelling in the legs. No back pain. ROS: See above HPI for pertinent positives & negatives. A total of 10 systems reviewed and were otherwise negative. PAST MEDICAL HISTORY:See Below PAST SURGICAL HISTORY:See Below FAMILY HISTORY:See Below SOCIAL HISTORY:See Below HOME MEDICATIONS:See Below ALLERGIES:See Below VITALS:See Below PHYSICAL EXAMINATION: GENERAL: Sitting up in bed, alert, well appearing, well nourished, no distress, non-toxic EYE EXAM: normal conjunctiva. OROPHARYNX: no exudate, no erythema, lips, buccal mucosa, and tongue normal and mucous membranes are moist NECK: supple, no nuchal rigidity, no adenopathy, non-tender LUNGS: Clear to auscultation. Normal chest wall mechanics HEART: no murmurs, S1 normal and S2 normal ABDOMEN: abdomen soft, non-tender, normo-active bowel sounds, no masses, no rebound or guarding. BACK: Back is symmetrical on inspection and there is no deformity, no midline tenderness, no CVA tenderness. SKIN: no rashes and no bruising UPPER EXTREMITIES: upper extremities are grossly normal. LOWER EXTREMITIES: Mild edema in bilateral lower extremities. Flexion-extension left hip and knee with moderate pain with flexion of the left knee. DPs and PTs 2 out of 4. Gross station intact. No tenderness in the tib-fib or ankle. Flexion-extension bilateral hips, knees and ankles intact and equal bilateral 4 out of 5. NEURO EXAM: Normal sensorium, cranial nerves II-XII grossly intact, normal speech, no gross weakness of arms, no gross weakness of legs. MEDICAL DECISION MAKING: Patient is an 84-year-old female who presents the ER initially for left leg pain. While she was here she started with an episode of chest pain located midsternum. She described it as a dull ache. No other radiation. Notes it feels like her previous WI. History of 3 stents. IV had already been established and blood work was obtained. Labs show no significant leukocytosis or anemia. BMP was unremarkable. Bilirubin and LFTs was unremarkable. Troponin was negative. Lipase was unremarkable. EKG was unchanged from previous. X-ray and ultrasound of the left lower extremity was unremarkable. Patient was given aspirin and nitro. She did have a syncopal event about 1/2- hour after nitro. There is no shaking. When she woke up she was back to normal. She knew where she was at. Try to review the monitor but monitor caloric noticed no bradycardia. Nurse in the room noticed a sinus bradycardia and 43. Was unable to pull this up from the command station. Do not believe that this consistent with a PE as she never had any shortness of breath. While she was at ultrasound she started complaining of chest pain. She notified the nurse when she came back to the room. She describes it as a dull ache. Feels like her previous WI. She has a total of 3 stents within the last WI 3 years ago. She had no shortness of breath arm or jaw pain. She was given aspirin and nitro. EKG was unremarkable. Triage Nursing notes reviewed. Prior medical records reviewed Vital Signs: reviewed and remarkable for HTN Differential diagnosis: Differential diagnoses includes but is not limited to acute coronary syndrome, myocardial infarction, pericarditis, pulmonary embolus, aortic dissection, pneumonia, pneumothorax, musculoskeletal, shingles, esophageal. ER treatment provided: See below Diagnostics interpreted by me: ECG: Sinus rhythm rate of 79 Normal axis T wave inversion in lead III No PVCs No significant change from EKG performed in 2004 Cardiac Monitoring: An order was placed for continuous cardiac monitoring. The monitor shows a rate of 82 with sinus rhythm. Laboratory studies: As stated above and show below. Imaging studies: See below Consultation(s): Discussed with the hospitalist for further evaluation. ED COURSE: Procedures: none Critical Care: None Past Med/Surg History Medical History (Updated 12/10/19 @ 15:46 by West James DO) Breast cancer CAD (coronary artery disease) NSTEMI in 08/2017; 2 JOHN to LAD and 1 to LCx Carotid artery stenosis Cataract Cerebrovascular disease CKD (chronic kidney disease) stage 3, GFR 30-59 ml/min Diverticulitis Diverticulosis of colon History of cerebrovascular accident History of open sigmoidectomy Hypercholesterolemia Hypertension Hypertensive crisis Hypothyroidism Non-hemorrhagic cerebrovascular accident (CVA) Pancreatitis Perforated bowel Pseudoaneurysm Secondary thrombocytosis Spherocytosis, hereditary Travelers' diarrhea Surgical History History of arthroscopy of right knee History of breast surgery History of section History of section History of cholecystectomy History of colectomy History of colonoscopy History of colposcopy History of dilation and curettage History of knee replacement History of lumpectomy History of splenectomy History of splenectomy History of tonsillectomy and adenoidectomy History of tubal ligation Hx of cholecystectomy S/P angioplasty with stent Status post breast lumpectomy Family History (Updated 09/16/19 @ 10:04 by SABA Irving) Unknown Heart disease Diabetes Breast cancer Uncle Colorectal cancer Mother , age 54 of complications post splenectomy No problems noted. 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 How many Children do You have: 3 Feels Safe at Home: Yes Dental Care, Regularly: Yes Seatbelt Use: always Sunscreen Use: Yes Assistive Devices: Walker Allergies Allergies Allergy/AdvReac Type Severity Reaction Status Date / Time vancomycin Allergy Intermediate rash Verified 12/10/19 10:06 diphenhydramine Allergy Mild Redness Verified 10/30/19 14:40 clavulanic acid Allergy Unknown Unknown Verified 12/10/19 10:06 codeine Allergy Unknown Unknown Verified 10/30/19 14:40 Home Meds Home Medications Medication Instructions Recorded Confirmed calcium carbonate [Calcium 500] 500 mg PO QAM #0 09/02/12 12/10/19 aspirin [Aspirin Low Dose] 81 mg PO QAM 11/22/17 12/10/19 Centrum Silver 1 tab PO QAM 05/30/18 12/10/19 nitroglycerin 0.4 mg SUBLINGUAL UD PRN 07/21/18 12/10/19 losartan 50 mg tablet 50 mg PO QAM tab 09/12/19 12/10/19 cetirizine 10 mg tablet 10 mg PO HS #0 tab 09/16/19 12/10/19 ascorbic acid (vitamin C) [Vitamin 500 mg PO QAM 12/10/19 12/10/19 C] cholecalciferol (vitamin D3) 50 mcg PO QAM 12/10/19 12/10/19 [Vitamin D3] levothyroxine 25 mcg PO QAM 12/10/19 12/10/19 pantoprazole 40 mg PO HS 12/10/19 12/10/19 polyethylene glycol 3350 [Gavilax] 17 g PO HS 12/10/19 12/10/19 solifenacin [Vesicare] 10 mg PO QAM 12/10/19 12/10/19 Previous Rx's Medication Instructions Recorded atorvastatin 40 mg tablet 40 mg PO QAM #90 tab 04/16/19 clopidogrel 75 mg tablet 75 mg PO QAM #90 tab 04/16/19 metoprolol succinate 25 mg 25 mg PO HS #90 tab 04/16/19 tablet,extended release 24 hr colostomy bags 2 3/4" #30 ea 10/03/19 ostomy supplies 2 3/4" #30 ea 10/30/19 hydrocodone 5 mg-acetaminophen 325 1 tab PO BID PRN #100 tab 12/04/19 mg tablet Results & Data (ED) Vital Signs Vital Signs - 24 hr 12/10/19 09:17 12/10/19 09:40 12/10/19 10:38 Temperature 36.5 C Temperature Source Oral Pulse Rate 62 Pulse Rate [Finger] 86 Pulse Rate from SpO2 Sensor Pulse Rhythm Regular Pulse Strength Normal Respiratory Rate 18 20 Respiratory Effort / Characteristics Non-Labored Respiratory Depth Normal Blood Pressure 194/82 H Blood Pressure [Right Arm] 174/88 H Blood Pressure Mean 119 Blood Pressure Mean [Right Arm] 116 Pulse Oximetry 96 95 Oxygen Delivery Method Room Air Room Air Sepsis Recent Fever Within 48 Hours No Sepsis New/Unexplained Change in Mental Status No Sepsis Action Taken by Nursing No Action Required 12/10/19 11:19 12/10/19 11:24 12/10/19 11:36 Temperature Temperature Source Pulse Rate 78 80 76 Pulse Rate [Finger] Pulse Rate from SpO2 Sensor 78 79 Pulse Rhythm Pulse Strength Respiratory Rate 18 15 13 Respiratory Effort / Characteristics Respiratory Depth Blood Pressure 185/102 H Blood Pressure [Right Arm] Blood Pressure Mean 108 Blood Pressure Mean [Right Arm] Pulse Oximetry 96 96 Oxygen Delivery Method Sepsis Recent Fever Within 48 Hours Sepsis New/Unexplained Change in Mental Status Sepsis Action Taken by Nursing 12/10/19 12:22 12/10/19 12:30 12/10/19 12:31 Temperature Temperature Source Pulse Rate 84 72 69 Pulse Rate [Finger] Pulse Rate from SpO2 Sensor Pulse Rhythm Pulse Strength Respiratory Rate 14 14 20 Respiratory Effort / Characteristics Respiratory Depth Blood Pressure 139/102 H Blood Pressure [Right Arm] Blood Pressure Mean 123 Blood Pressure Mean [Right Arm] Pulse Oximetry Oxygen Delivery Method Sepsis Recent Fever Within 48 Hours Sepsis New/Unexplained Change in Mental Status Sepsis Action Taken by Nursing 12/10/19 12:47 12/10/19 13:00 12/10/19 13:30 Temperature Temperature Source Pulse Rate 76 70 67 Pulse Rate [Finger] Pulse Rate from SpO2 Sensor Pulse Rhythm Pulse Strength Respiratory Rate 21 16 16 Respiratory Effort / Characteristics Respiratory Depth Blood Pressure 144/86 H 137/73 157/84 H Blood Pressure [Right Arm] Blood Pressure Mean 104 99 116 Blood Pressure Mean [Right Arm] Pulse Oximetry Oxygen Delivery Method Sepsis Recent Fever Within 48 Hours Sepsis New/Unexplained Change in Mental Status Sepsis Action Taken by Nursing 12/10/19 14:00 12/10/19 14:01 12/10/19 14:30 Temperature Temperature Source Pulse Rate 63 65 65 Pulse Rate [Finger] Pulse Rate from SpO2 Sensor Pulse Rhythm Pulse Strength Respiratory Rate 14 18 21 Respiratory Effort / Characteristics Respiratory Depth Blood Pressure 147/77 H Blood Pressure [Right Arm] Blood Pressure Mean 101 Blood Pressure Mean [Right Arm] Pulse Oximetry Oxygen Delivery Method Sepsis Recent Fever Within 48 Hours Sepsis New/Unexplained Change in Mental Status Sepsis Action Taken by Nursing Laboratory Data Result diagrams: 12/10/19 09:55 12/10/19 09:55 Lab Results 12/10/19 12/10/19 12/10/19 Range/Units 09:55 09:55 12:19 WBC 9.60 (4.8-10.8) K/uL RBC 4.13 L (4.2-5.4) M/uL Hgb 12.6 (12.0-16.0) g/dL Hct 39.2 (37-47) % MCV 94.9 (80-100) fL MCH 30.5 (25-34) pg MCHC 32.1 (32-36) g/dL RDW Std Deviation 48.3 H (36.4-46.3) fL RDW Coeff of Roberto 14.0 (11.5-14.5) % Plt Count 411 H (130-400) K/uL MPV 9.4 (7.4-10.4) fL Immature Gran % (Auto) 0.3 % Neut % (Auto) 57.8 % Lymph % (Auto) 30.1 % [place] % (Auto) 9.2 % Eos % (Auto) 2.0 % Baso % (Auto) 0.6 % Neut # (Auto) 5.55 (1.4-6.5) K/uL Lymph # (Auto) 2.89 (1.2-3.4) K/uL [place] # (Auto) 0.88 H (0.11-0.59) K/uL Eos # (Auto) 0.19 (0-0.5) K/uL Baso # (Auto) 0.06 (0-0.2) K/uL Immature Gran # (Auto) 0.03 H (0.00-0.02) K/uL Sodium 139 (136-145) mmol/L Potassium 4.5 (3.5-5.1) mmol/L Chloride 106 (98-107) mmol/L Carbon Dioxide 28 (21-32) mmol/L Anion Gap 5.0 (3-11) BUN 23 H (7-18) mg/dl Creatinine 1.07 (0.6-1.2) mg/dl Est Cr Clr Drug Dosing Not Reportable Est GFR ( Amer) 56.0 Est GFR (Non-Af Amer) 48.3 BUN/Creatinine Ratio 21.3 H (10-20) Glucose 103 H (70-99) mg/dl Calcium 8.9 (8.5-10.1) mg/dl Total Bilirubin 0.6 (0.2-1) mg/dl Direct Bilirubin 0.1 (0-0.2) mg/dl AST 23 (15-37) U/L ALT 25 (12-78) U/L Alkaline Phosphatase 108 (45-117) U/L Troponin I < 0.015 (0-0.045) ng/ml Total Protein 8.1 (6.4-8.2) gm/dl Albumin 3.3 L (3.4-5.0) gm/dl Lipase 140 (73-393) U/L 12/10/19 Range/Units 14:42 WBC (4.8-10.8) K/uL RBC (4.2-5.4) M/uL Hgb (12.0-16.0) g/dL Hct (37-47) % MCV (80-100) fL MCH (25-34) pg MCHC (32-36) g/dL RDW Std Deviation (36.4-46.3) fL RDW Coeff of Roberto (11.5-14.5) % Plt Count (130-400) K/uL MPV (7.4-10.4) fL Immature Gran % (Auto) % Neut % (Auto) % Lymph % (Auto) % [place] % (Auto) % Eos % (Auto) % Baso % (Auto) % Neut # (Auto) (1.4-6.5) K/uL Lymph # (Auto) (1.2-3.4) K/uL [place] # (Auto) (0.11-0.59) K/uL Eos # (Auto) (0-0.5) K/uL Baso # (Auto) (0-0.2) K/uL Immature Gran # (Auto) (0.00-0.02) K/uL Sodium (136-145) mmol/L Potassium (3.5-5.1) mmol/L Chloride (98-107) mmol/L Carbon Dioxide (21-32) mmol/L Anion Gap (3-11) BUN (7-18) mg/dl Creatinine (0.6-1.2) mg/dl Est Cr Clr Drug Dosing Est GFR ( Amer) Est GFR (Non-Af Amer) BUN/Creatinine Ratio (10-20) Glucose (70-99) mg/dl Calcium (8.5-10.1) mg/dl Total Bilirubin (0.2-1) mg/dl Direct Bilirubin (0-0.2) mg/dl AST (15-37) U/L ALT (12-78) U/L Alkaline Phosphatase (45-117) U/L Troponin I < 0.015 (0-0.045) ng/ml Total Protein (6.4-8.2) gm/dl Albumin (3.4-5.0) gm/dl Lipase (73-393) U/L Administered Medications Nitroglycerin (Nitroglycerin Sl 0.4 Mg/Tab Tab) 0.4 mg SL PRN PRN PRN Reason: Chest Pain Stop: 01/09/20 12:04 Last Admin: 12/10/19 12:18 Dose: 0.4 mg Documented by: [id number] Discontinued Medications Acetaminophen (Acetaminophen 325 Mg Tab) 650 mg PO NOW STA Stop: 12/10/19 09:41 Last Admin: 12/10/19 10:03 Dose: 650 mg Documented by: [id number] Aspirin (Aspirin Chew 324 Mg) 324 mg PO NOW STA Stop: 12/10/19 11:38 Last Admin: 12/10/19 12:18 Dose: 324 mg Documented by: [id number] Morphine Sulfate (Morphine Sulfate 2 Mg/Ml Carp) 2 mg IV NOW STA Stop: 12/10/19 09:41 Last Admin: 12/10/19 10:04 Dose: 2 mg Documented by: [id number] Ondansetron HCl (Ondansetron Inj 2 Mg/Ml 2 Ml Vial) 4 mg IV NOW STA Stop: 12/10/19 09:41 Last Admin: 12/10/19 10:04 Dose: 4 mg Documented by: [id number] Discharge Plan Visit Data Chief Complaint: Hip Pain Stated Complaint: PAIN IN L FOOT ED Provider: West James Discharge Problem: Chest pain, Syncope, Acute leg pain Discharge Instructions Interventions: ED Discharge Assessment Last Done: 12/10/19 14:44 Discharge Problem: Chest pain Qualifiers: Chest pain type: unspecified Qualified Code(s): R07.9 - Chest pain, unspecified Syncope Qualifiers: Syncope type: unspecified Qualified Code(s): R55 - Syncope and collapse Acute leg pain Qualifiers: Laterality: left Qualified Code(s): M79.605 - Pain in left leg
[2019-12-10 10:06] LABS: Basophils # (auto) 0.06 K/uL (0-0.2); Basophils % (auto) 0.6 %; Eosinophils # (auto) 0.19 K/uL (0-0.5); Hematocrit (blood only) 39.2 % (37-47); Hemoglobin 12.6 g/dL (12.0-16.0); Immature Granulocytes # (auto) 0.03 K/uL (0.00-0.02); Immature Granulocytes % (auto) 0.3 %; Lymphocytes # (auto) 2.89 K/uL (1.2-3.4); Lymphocytes % (auto) 30.1 %; Mean Corpuscular Hemoglobin 30.5 pg (25-34); Mean Corpuscular Hgb Conc 32.1 g/dL (32-36); Mean Corpuscular Volume 94.9 fL (80-100); Mean Platelet Volume 9.4 fL (7.4-10.4); Monocytes # (auto) 0.88 K/uL (0.11-0.59); Monocytes % (auto) 9.2 %; Neutrophils # (auto) 5.55 K/uL (1.4-6.5); Neutrophils % (auto) 57.8 %; Platelet Count 411 K/uL (130-400); RDW Standard Deviation 48.3 fL (36.4-46.3); Red Blood Count 4.13 M/uL (4.2-5.4)
[2019-12-10 10:26] LABS: BUN Creatinine Ratio 21.3 (10-20); Blood Urea Nitrogen 23 mg/dl (7-18); Calcium 8.9 mg/dl (8.5-10.1); Carbon Dioxide 28 mmol/L (21-32); Chloride 106 mmol/L (98-107); Est GFR (Non-African American) 48.3; Glucose 103 mg/dl (70-99); Potassium 4.5 mmol/L (3.5-5.1); Sodium 139 mmol/L (136-145)
--- NOTE | 2019-12-10 11:27 | Ultrasound Report ---
LEFT LOWER EXTREMITY VENOUS DOPPLER HISTORY: Left leg pain. COMPARISON STUDY: None. FINDINGS: There is normal compressibility, flow, and augmentation within the left lower extremity vera p venous system. IMPRESSION: No DVT within the left lower extremity. ACT 112: Negative or not required by law. Electronically signed by: Kavin Holliday M.D. 12/10/2019 11:25 AM
[2019-12-10] MEDS ORDERED: ASPIRIN CHEW 324 MG PO STA (11:37)
[2019-12-10] MEDS ORDERED: NITROGLYCERIN SL 0.4 MG/TAB TAB SL PRN (12:05)
--- NOTE | 2019-12-10 12:24 | XRay Report ---
XR knee LT 3V CLINICAL HISTORY: Left knee pain following injury. COMPARISON: Left knee radiographs May 29, 2005. FINDINGS: Alignment of the left knee is anatomic. There is no acute fracture or joint effusion. No o sseous lesion. There is moderate vascular calcification. There is chondrocalcinosis within the menisc i. There is mild to moderate left knee osteoarthritis. IMPRESSION: 1. No acute fracture or joint effusion within the left knee. 2. Mild to moderate left knee osteoarthritis with chondrocalcinosis within the menisci. ACT 112: Negative or not required by law. Electronically signed by: Wilberto Weller M.D. 12/10/2019 12:23 PM
--- NOTE | 2019-12-10 12:26 | XRay Report ---
XR femur LT 2V routine CLINICAL HISTORY: Left leg pain. COMPARISON: CT of the abdomen and pelvis June 02, 2018. FINDINGS: There is extensive vascular calcification. Alignment of the left hip and left knee is casie omic. No acute fracture within the left femur is identified. There is no left knee joint effusion. Mi ld joint space narrowing and osteophytosis of the left hip is present. IMPRESSION: No acute fracture within the left femur. ACT 112: Negative or not required by law. Electronically signed by: Wilberto Weller M.D. 12/10/2019 12:24 PM
--- NOTE | 2019-12-10 12:27 | XRay Report ---
XR chest 1V not portable CLINICAL HISTORY: cp COMPARISON STUDY: Chest CT March 26, 2018. Chest radiograph January 13, 2019. FINDINGS: Lung volumes are normal. Lungs are clear. There is no pneumothorax or pleural effusion. Car diac size is stable. Mediastinal contours are normal. There is no evidence for pulmonary edema. IMPRESSION: No acute cardiopulmonary findings. No change in appearance of the chest. ACT 112: Negative or not required by law. Electronically signed by: Wilberto Weller M.D. 12/10/2019 12:26 PM
--- NOTE | 2019-12-10 12:53 | Electrocardiogram Report ---
Test Reason : Blood Pressure : / mmHG Vent. Rate : 079 BPM Atrial Rate : 079 BPM P-R Int : 196 ms QRS Dur : 086 ms QT Int : 420 ms P-R-T Axes : 071 005 -04 degrees QTc Int : 481 ms Normal sinus rhythm Poor R wave progression, consider anterior ID vs. lead placement vs. LVH Abnormal ECG Confirmed by Khanh Cosme ([id number]) on 12/10/2019 12:53:32 PM Referred By: REFERRED SELF Confirmed By:Scott Cosme
[2019-12-10 13:14] LABS: Alanine Aminotransferase 25 U/L (12-78); Albumin Level 3.3 gm/dl (3.4-5.0); Alkaline Phosphatase 108 U/L (45-117); Bilirubin,Total 0.6 mg/dl (0.2-1); Lipase 140 U/L (73-393); Total Protein 8.1 gm/dl (6.4-8.2); Troponin I < 0.015 ng/ml (0-0.045)
[2019-12-10 13:30] LABS: Aspartate Aminotransferase 23 U/L (15-37); Bilirubin Direct 0.1 mg/dl (0-0.2)
--- NOTE | 2019-12-10 14:05 | History & Physical Report ---
Date of Service December 10, 2019 Assessment & Plan (1) Chest pain: Patient is here with atypical chest pain that ocurred at rest which caused asyncopal episode. Will obtain echo, obtain serial cardiac markers and admit her under obs. (2) Syncope: Obtain carotd ultrasound which were negative. Will have her on tele to monitor for any arrythmias. (3) Acute leg pain: Likely secondary to left knee OA. will recommend outpatient followup with ortho. PT/OT Evals (4) Hypercholesterolemia: stable will resume home meds. Last LDL was tested in September of 2019 at 82. (5) Hypertension: will resume home meds. stable (6) CAD (coronary artery disease): She has a total of 3 stents within the last [place] 3 years ago Will resume home meds. Plavx mendel, BB. (7) BMI 36.0-36.9,adult: recommend life style modifications History of Present Illness Chief Complaint: pain in her left knee Primary Care Provider: Shilpa Parker MD Patient is an 84-year-old female with signigicant history for CVA and Heart disease with 3 stents LAD and LCX, who presents ER for left lower extremity pain. During her intial ED evaluation, the patient also experienced pressure like midsternum chest pain followed by her vison becoming fuzzy. She then had a syncopal event when her noticed her head just went limp and chin went to chest. The patients HR at the time was 50's and was pale per the RN report. Patient does not recall how long the pain lasted as she passed out, but states the pain is now gone. In regards the hip pain started when she got up to use the bedside commode last night and noted the pain to be in her left hip. She took a tablet of her hydrocodone and went back to sleep, upon waking up this morning she had difficulty bearing weight on her left leg due to the pain. Upon evaluation by our team the pain was localized to the knee. Denies any tingling or numbness. She does have paresthesias in the bilateral toes which is normal. No chest pain or shortness of breath. No other exacerbating or remitting factors. Patient normally walks with a walker. She notes that the pain is significantly worse when walking but is nonexistent when she is at rest. The majority of the pain is in her left knee. She does have some in her left hip as well but that has dissipated. She denies any new swelling in the legs. No back pain. Allergies Allergy/AdvReac Type Severity Reaction Status Date / Time vancomycin Allergy Intermediate rash Verified 12/10/19 10:06 diphenhydramine Allergy Mild Redness Verified 10/30/19 14:40 clavulanic acid Allergy Unknown Unknown Verified 12/10/19 10:06 codeine Allergy Unknown Unknown Verified 10/30/19 14:40 Home Medications Home Medications Medication Instructions Recorded Confirmed Type calcium carbonate [Calcium 500] 500 mg PO QAM #0 09/02/12 12/10/19 History aspirin [Aspirin Low Dose] 81 mg PO QAM 11/22/17 12/10/19 History Centrum Silver 1 tab PO QAM 05/30/18 12/10/19 History nitroglycerin 0.4 mg SUBLINGUAL UD PRN 07/21/18 12/10/19 History atorvastatin 40 mg tablet 40 mg PO QAM #90 tab 04/16/19 12/10/19 Rx clopidogrel 75 mg tablet 75 mg PO QAM #90 tab 04/16/19 12/10/19 Rx metoprolol succinate 25 mg 25 mg PO HS #90 tab 04/16/19 12/10/19 Rx tablet,extended release 24 hr losartan 50 mg tablet 50 mg PO QAM tab 09/12/19 12/10/19 History cetirizine 10 mg tablet 10 mg PO HS #0 tab 09/16/19 12/10/19 History colostomy bags 2 3/4" #30 ea 10/03/19 10/30/19 Rx ostomy supplies 2 3/4" #30 ea 10/30/19 10/30/19 Rx hydrocodone 5 mg-acetaminophen 325 1 tab PO BID PRN #100 tab 12/04/19 12/10/19 Rx mg tablet ascorbic acid (vitamin C) [Vitamin 500 mg PO QAM 12/10/19 12/10/19 History C] cholecalciferol (vitamin D3) 50 mcg PO QAM 12/10/19 12/10/19 History [Vitamin D3] levothyroxine 25 mcg PO QAM 12/10/19 12/10/19 History pantoprazole 40 mg PO HS 12/10/19 12/10/19 History polyethylene glycol 3350 [Gavilax] 17 g PO HS 12/10/19 12/10/19 History solifenacin [Vesicare] 10 mg PO QAM 12/10/19 12/10/19 History Past Med/Surg History Medical History Breast cancer CAD (coronary artery disease) NSTEMI in 08/2017; 2 JOHN to LAD and 1 to LCx Carotid artery stenosis Cataract Cerebrovascular disease CKD (chronic kidney disease) stage 3, GFR 30-59 ml/min Diverticulitis Diverticulosis of colon History of cerebrovascular accident History of open sigmoidectomy Hypercholesterolemia Hypertension Hypertensive crisis Hypothyroidism Non-hemorrhagic cerebrovascular accident (CVA) Pancreatitis Perforated bowel Pseudoaneurysm Secondary thrombocytosis Spherocytosis, hereditary Travelers' diarrhea Surgical History History of arthroscopy of right knee History of breast surgery History of section History of section History of cholecystectomy History of colectomy History of colonoscopy History of colposcopy History of dilation and curettage History of knee replacement History of lumpectomy History of splenectomy History of splenectomy History of tonsillectomy and adenoidectomy History of tubal ligation Hx of cholecystectomy S/P angioplasty with stent Status post breast lumpectomy Family History Unknown Heart disease Diabetes Breast cancer Uncle Colorectal cancer Mother , age 54 of complications post splenectomy No problems noted. 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 How many Children do You have: 3 Other Information That Helps Us Care for You: No Feels Safe at Home: Yes Safety Concerns: Feels Safe At This Time Dental Care, Regularly: Yes Seatbelt Use: always Sunscreen Use: Yes Assistive Devices: None Review of Systems Constitutional: no sweats and no malaise Eyes: no diplopia Ear, Nose, Mouth, Throat: no ear trauma Respiratory: no change in sputum Cardiovascular: no chest pain with activity Gastrointestinal: no bloating Genitourinary: no urinary frequency Musculoskeletal: + radicular pain and + joint pain Integumentary: no rash Neurologic: no seizure-like activity Psychiatric: no hopelessness Endocrine: no polydipsia Hematologic / Lymphatic: no coagulopathy Physical Exam Physical Exam: . Constitutional: WD/WN, vitals as above Eyes: PERRL, conjunctivae normal, anicteric sclerae ENMT: external ear and nose normal, oropharynx normal Neck: trachea midline, no thyromegaly Respiratory: normal respiratory effort, lungs clear to auscultation Cardiovascular: RRR, no murmur, no edema Gastrointestinal (Abdomen): normal bowel sounds, soft, nontender, no hepatosplenomegaly Musculoskeletal: Pain to palpation in anterior muscle group in the thigh from left hip down to knee. Pain with left knee flexion Upper extremities are grossly normal. No tenderness in the tib-fib or ankle. Flexion-extension bilateral hips, knees and ankles intact and equal bilateral 4 out of 5. Skin: no rashes, warm and dry Neurologic: PERRL, EOMI, accommodation nl, no face palsy, no dysarthria Psychiatric: A+Ox3, euthymic affect Results & Data Results & Data ([facility]) Vital Signs (Past 12 Hours) Vital Signs Temp Pulse Pulse Resp BP BP Pulse Ox 12/10/19 11:36 76 13 185/102 H 12/10/19 11:24 80 15 96 12/10/19 11:19 78 18 96 12/10/19 10:38 86 20 174/88 H 95 12/10/19 09:17 36.5 C 62 18 194/82 H 96 PG Care Time/CCT Total # of Minutes Spent Total Time Spent with Patient: Total time spent is greater than 50% in coordination of care (as documented) at patient's floor/unit and/or counseling patient: Coding Level of Care Code 65939 OBS Care - Level 3 Diagnoses Chest pain R07.9 Chest pain type: unspecified Syncope R55 Syncope type: unspecified Acute leg pain M79.605 Laterality: left Hypercholesterolemia E78.00 Hypertension I10 CAD (coronary artery disease) I25.10 BMI 36.0-36.9,adult Z68.36 (1) Acute leg pain Laterality: left Qualified Code(s): M79.605 - Pain in left leg (2) Syncope Syncope type: unspecified Qualified Code(s): R55 - Syncope and collapse (3) Chest pain Chest pain type: unspecified Qualified Code(s): R07.9 - Chest pain, unspecified
--- NOTE | 2019-12-10 15:56 | XCELERA ---
[id number]
--- NOTE | 2019-12-10 16:10 | Electrocardiogram Report ---
Test Reason : Blood Pressure : / mmHG Vent. Rate : 076 BPM Atrial Rate : 076 BPM P-R Int : 164 ms QRS Dur : 080 ms QT Int : 428 ms P-R-T Axes : 051 013 007 degrees QTc Int : 481 ms Poor data quality, interpretation may be adversely affected Normal sinus rhythm When compared with ECG of 10-DEC-2019 11:24, No significant change was found Confirmed by Khanh Cosme ([id number]) on 12/10/2019 4:10:33 PM Referred By: REFERRED SELF Confirmed By:Scott Cosme
--- NOTE | 2019-12-10 17:37 | Ultrasound Report ---
ULTRASOUND OF THE CAROTID ARTERIES CLINICAL HISTORY: Syncope. COMPARISON STUDY: Carotid artery ultrasound dated 11/29/2016. CT angiogram of the neck dated 9. TECHNIQUE: Real-time, grayscale, and color Doppler sonography of the carotid arteries is performed. I mages are reviewed in the transverse and longitudinal planes. FINDINGS: Blood pressure in the right arm measures 164/86 and blood pressure in the left arm measures 160/76. The carotid arteries are patent bilaterally and demonstrate antegrade flow. There is mild to moderate atherosclerotic plaque seen in the carotid bulbs bilaterally. Normal doppler arterial waveforms are seen throughout. Velocity measurements are listed below. Common carotid peak systolic velocity (cm/sec): RIGHT: 55 LEFT: 57 ICA proximal peak systolic velocity (cm/sec): RIGHT: 36 LEFT: 41 ICA mid peak systolic velocity (cm/sec): RIGHT: 41 LEFT: 26 ICA distal peak systolic velocity (cm/sec): RIGHT: 38 LEFT: 35 ICA/CC peak systolic ratio: RIGHT: 0.8 LEFT: 0.7 Antegrade flow was shown in the vertebral arteries. The external carotid arteries are patent. IMPRESSION: 1. There is no sonographic evidence of hemodynamically significant stenosis in the right or left stewart tid arterial system. 2. Antegrade flow is shown in the vertebral arteries. ACT 112: Negative or not required by law. Electronically signed by: Valdemar Guido M.D. 12/10/2019 5:35 PM
[2019-12-10] MEDS ORDERED: METOPROLOL SUCC 25MG EXT REL TAB PO SCH (21:00)
[2019-12-10] MEDS ORDERED: PANTOprazole 40 MG TAB PO SCH (21:00)
[2019-12-10] MEDS ORDERED: POLYETHYLENE (MIRALAX) 17 GM PACK PO SCH (21:00)
[2019-12-10] MEDS ORDERED: CETIRIZINE HCL 10 MG TABLET PO SCH (21:00)
[2019-12-11] MEDS ORDERED: ACETAMINOPHEN 325 MG TAB PO PRN (02:49)
[2019-12-11] MEDS ORDERED: LEVOTHYROXINE SODIUM 25 MCG TABLET PO SCH (06:30)
[2019-12-11] MEDS ORDERED: ASPIRIN 81 MG ECTAB PO SCH ×2 (09:00)
[2019-12-11] MEDS ORDERED: CHOLECALCIFEROL 1,000 UNITS 25 MCG TAB PO SCH (09:00)
[2019-12-11] MEDS ORDERED: LIDOCAINE 5% 1 PATCH TD SCH (09:00)
[2019-12-11] MEDS ORDERED: ASCORBIC ACID 500 MG TAB PO SCH (09:00)
[2019-12-11] MEDS ORDERED: CLOPIDOGREL BISULFATE 75 MG TAB PO SCH (09:00)
[2019-12-11] MEDS ORDERED: ATORVASTATIN 40 MG TAB PO SCH (09:00)
[2019-12-11] MEDS ORDERED: LOSARTAN POTASSIUM 50 MG TAB PO SCH (09:00)
[2019-12-11] MEDS ORDERED: CALCIUM CARBONATE 1250MG TAB PO SCH (09:00)
--- NOTE | 2019-12-11 10:21 | Student Report ---
[facility] Student Progress Note Date of Service Date of service: December 11, 2019 Subjective Subjective: Christi Grace is an 84 year old female with a pertinent past medical history of CAD, NSTEMI with 3 stents placed (2018), CVA, and CKD III and a family history of VT's who presented to ED 12/09 morning (1 day ago) with a chief concern of left leg pain from her hip to foot and she was unable to weight bear. At baseline she walks very little, typically has right sided pain due to recent foot fracture, weakness in the right left from her previous stroke, and with a walker. In the ED she also had lower extremity edema. Mid-day she developed chest pain treated with aspirin and nitroglycerin. 30 minutes later she experienced a syncopal episode seated in a chair. She remembers her vision became blurry and her witnessed that she got pale right before and took 7 minutes to recover fully. She did not experience any arrhythmias at that time but did have a decrease in blood pressures. She has a history of a similar syncopal episode 1 year ago where she lost consciousness seated in a chair and took about 40 minutes to recover. At that time she was evaluated and cardiac causes were ruled out. Her troponin was negative, venous Doppler ultrasound was negative for DVT, and her echo showed aortic valve sclerosis and mild regurgitation. A carotid Doppler study showed mild carotid stenosis. Today her leg and chest pain has resolved and she is feeling better. She denies any headache, nausea, vomiting, chest pain, or SOB. Telemetry showed a normal rhythm and heart rate in the 60-70s overnight. She lives with her and has Home Health come each morning to assist with ADLs. ROS ROS: Constitutional: No nausea/vomiting, no diaphoresis Cardiovascular: No chest pain, no lower extremity edema Respiratory: No SOB, no cough Gastrointestinal: Has colostomy bag but no bowel changes Neurological: No weakness, headache, or dizziness Musculoskeletal: No leg pain Physical Exam Physical Exam: Vitals Signs BP 177/91; HR 69; Resp 18, Temp 36.6; Ox Sat 94% on room air General: Well appearing, NAD HEENT:Pupils equal/round, reactive to light Cardiovascular: RRR, no m/r/g, no lower extremity edema, nl pedal and tibial pulses b/l, no carotid bruits Pulmonary: Clear to auscultation without wheezes/rales/rhonchi, Abdomen: Soft, nontender, nondistended, positive bowel sounds. A&P A&P: Christi Grace is an 84 year old woman with a pertinent PMX of CAD, a history of an NSTEMI, a previous CVA, and CKD III who presented to the ED one day ago with left lower extremity pain and developed throughout her course chest pain followed by a syncopal episode. 1. Chest pain * EKG did not show evidence of infarction at the time of her chest pain. * Her troponin was negative. * Echocardiogram showed aortic valve sclerosis and mild regurgitation. * While her chest pain does not appear to be emergent, Mrs. Grace was recommended to follow up with her russian history professor to have a dobutamine stress test. 2. Syncope * Her rhythm was normal during her syncopal episode and overnight monitoring showed sinus rhythm with rate in thierry 60-70s. * Possibly orthostatic due to drop in blood pressure following nitroglycerin or vasovagal. 3. Leg pain * Imaging of the leg showed osteoarthritis of left knee but otherwise no evidence of effusion or an acute process. * Venous doppler was negative for DVT. * Outpatient physical therapy or at home physical therapy was recommended.
--- NOTE | 2019-12-11 10:30 | Cardiology Consultation ---
Date of Consultation December 11, 2019 Assessment & Plan (1) Chest pain: Atypical chest pain of several minutes x 1 episode, resolved. The pain was midsternal and ? relieved by nitro, but was not exertional. The patient does have CAD w/ stents and significant cardiac hx and hx of CVA. Neg trops x3 and ecg before and after the episode did not show ischemic changes. Echo did not show new regional wall motion abnormalities. Neg trops are reassuring, however, the duration of the chest pain may not have been sufficient to lead to elevation. Recommend dobutamine stress test while inpatient. Present on Admission?: No (2) CAD (coronary artery disease): 08/11/2017 NSTEMI. PCI w/ JOHN. LAD JOHN x2. LCx JOHN x1. LAD had mid LAD 90- 95% stenosis w/ TIMI2. Mid circumflex 90% stenosis TIMI3. - on home atorvastatin 40 qAM and HTN/HLD meds. see below regarding hx of hemorrhagic stroke Present on Admission?: Yes (3) Episode of unresponsiveness: Episode of unresponsiveness that lasted a few minutes. No postictal symptoms and ? prodromal. Patient hx/description more suggestive of unresponsiveness vs. syncope as she was slumped over but not completely w/o muscle tone. Hx of CVA, but no hx seizure. Considered vasovagal episode vs. TIA. Per admission note, RN had noted HR in 50s and patient appeared pale at the time. 03/15/17 brain MRI showed subacute old L periventricular hemorrhagic infarct (deep left hemispheric stroke). Per 01/14/[address] Martinez, may not be a high dose statin candidate because of previous hemorrhagic stroke. Present on Admission?: No (4) Hypercholesterolemia: - on home atorvastatin 40 qAM. see above regarding hx of hemorrhagic stroke Present on Admission?: Yes (5) Hypertension: - hypertensive this AM 160s-170s/80s-90s, had not received AM HTN medications - continue home losartan 50 qAM, metoprolol succinate 25 daily Present on Admission?: Yes (6) Spherocytosis, hereditary: -chronic. s/p splenectomy Present on Admission?: Yes (7) History of cerebrovascular accident: - continue home Plavix 75 qAM and HTN/HLD medications as per above Present on Admission?: Yes Supervising Physician Co-Signing Physician Notes I saw and examined the patient at the bedside with Dr. Galeano and agree with the documentation noted above. Briefly, the patient presented to the emergency room for concerns about hip and leg discomfort. Seems she had an episode of chest discomfort he was administered nitroglycerin. Shortly afterward she was found to be unresponsive. There was some mention of bradycardia that is not well substantiated in her record. It is unclear if she was hypotensive at that time. The episode was reported to have been fairly extended in duration. Unfortunately, the patient recalls little of the events in the emergency room yesterday. She cannot give a good history regarding her symptoms of chest discomfort, there duration or factors that relieved her symptoms. She generally does not have symptoms of chest discomfort. It is unclear she had syncope from hypotension. She was reported to be somewhat ashen and hawkins suggestive of high vagal tone. She also has a history of syncope which is felt to be neurologic in the past. While there were no objective findings of ischemia, her history is somewhat perplexing. Given her known coronary disease would seem reasonable to provide some additional risk stratification. We suggested dobutamine echocardiography. However, the patient was hesitant initially refused the test. She was amenable to performing the test as an outpatient which would seem reasonable given the lack of objective findings and the unusual nature of her symptoms in the emergency room. History of Present Illness Reason for Consultation: chest pain Requesting Physician: Antonino Burt MD Attending Physician: Vivian Hein MD History of Present Illness Christi Grace is an 84 y/o F w/ hx of HTN, HLD, hypothyroidism, breast cancer (s/p XRT 2006) CAD (NSTEMI s/p DESx3 08/2017), and CVA (early 2017 hemorrhagic, w/ mild residual memory deficit) who presented w/ chest pain of several minutes while in the ED yesterday (presented for L hip and leg pain). The chest pain started at rest. 8/10 severity, constant, described as squeeze. Not pleuritic or reproducible w/ self-palpation. Patient noted some visual changes described as seeing jagged lines. She had some nausea as well. No vomiting, radiation, numbness/tingling, or diaphoresis. Patient's who witnessed the episode noted that while sitting in a chair, the patient slumped over w/ chin down and appeared unresponsive for a few minutes. The requested help from an ED nurse who performed a sternal rub and the patient came to. Afterwards, the patient still had a chest pain briefly before it completely resolved and has not since returned. She received SL nitro x1 at this time. She endorses some fatigue but no postictal symptoms. The patient cites memory problems and does not remember other details about the chest pain or episode of unresponsiveness. Currently, the patient denies any chest pain, N/V, F/C, shortness of breath or any other symptoms besides some LLE hip and leg pain that is milder than it had been yesterday. No significant chest pain since 08/2019 NSTEMI event. She had a prolonged episode of unresponsiveness in 01/2019 >30 min for which she was admitted to [facility] that was thought to be acute encephalopathy per neurology at time. At home, she takes Plavix 75, baby ASA, atorvastatin 40, losartan 50, and metoprolol ER 25. Her customer service administrator is Dr. Gordon, last visit 10/2019. +family hx of ID and stroke in multiple family members. Father passed from ID in his late 80s. No tobacco use hx. Denies etoh or illicit substances. Her baseline is living at home w/ . Ambulatory walker and has home health come once a day to help her out of bed. History obtained from patient w/ daughter at bedside. Some mild memory impairment noted during conversation. Allergies Allergy/AdvReac Type Severity Reaction Status Date / Time vancomycin Allergy Intermediate rash Verified 12/10/19 10:06 diphenhydramine Allergy Mild Redness Verified 10/30/19 14:40 clavulanic acid Allergy Unknown Unknown Verified 12/10/19 10:06 codeine Allergy Unknown Unknown Verified 10/30/19 14:40 Home Medications Home Medications Medication Instructions Recorded Confirmed Type calcium carbonate [Calcium 500] 500 mg PO QAM #0 09/02/12 12/10/19 History aspirin [Aspirin Low Dose] 81 mg PO QAM 11/22/17 12/10/19 History Centrum Silver 1 tab PO QAM 05/30/18 12/10/19 History nitroglycerin 0.4 mg SUBLINGUAL UD PRN 07/21/18 12/10/19 History atorvastatin 40 mg tablet 40 mg PO QAM #90 tab 04/16/19 12/10/19 Rx clopidogrel 75 mg tablet 75 mg PO QAM #90 tab 04/16/19 12/10/19 Rx metoprolol succinate 25 mg 25 mg PO HS #90 tab 04/16/19 12/10/19 Rx tablet,extended release 24 hr losartan 50 mg tablet 50 mg PO QAM tab 09/12/19 12/10/19 History cetirizine 10 mg tablet 10 mg PO HS #0 tab 09/16/19 12/10/19 History colostomy bags 2 3/4" #30 ea 10/03/19 10/30/19 Rx ostomy supplies 2 3/4" #30 ea 10/30/19 10/30/19 Rx hydrocodone 5 mg-acetaminophen 325 1 tab PO BID PRN #100 tab 12/04/19 12/10/19 Rx mg tablet ascorbic acid (vitamin C) [Vitamin 500 mg PO QAM 12/10/19 12/10/19 History C] cholecalciferol (vitamin D3) 50 mcg PO QAM 12/10/19 12/10/19 History [Vitamin D3] levothyroxine 25 mcg PO QAM 12/10/19 12/10/19 History pantoprazole 40 mg PO HS 12/10/19 12/10/19 History polyethylene glycol 3350 [Gavilax] 17 g PO HS 12/10/19 12/10/19 History solifenacin [Vesicare] 10 mg PO QAM 12/10/19 12/10/19 History Patient History Medical History Breast cancer CAD (coronary artery disease) NSTEMI in 08/2017; 2 JOHN to LAD and 1 to LCx Carotid artery stenosis Cataract Cerebrovascular disease CKD (chronic kidney disease) stage 3, GFR 30-59 ml/min Diverticulitis Diverticulosis of colon History of cerebrovascular accident History of open sigmoidectomy Hypercholesterolemia Hypertension Hypertensive crisis Hypothyroidism Non-hemorrhagic cerebrovascular accident (CVA) Pancreatitis Perforated bowel Pseudoaneurysm Secondary thrombocytosis Spherocytosis, hereditary Travelers' diarrhea Surgical History History of arthroscopy of right knee History of breast surgery History of section History of section History of cholecystectomy History of colectomy History of colonoscopy History of colposcopy History of dilation and curettage History of knee replacement History of lumpectomy History of splenectomy History of splenectomy History of tonsillectomy and adenoidectomy History of tubal ligation Hx of cholecystectomy S/P angioplasty with stent Status post breast lumpectomy Family History Unknown Heart disease Diabetes Breast cancer Uncle Colorectal cancer Mother , age 54 of complications post splenectomy No problems noted. 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 NAD. Cooperative. HEENT: Atraumatic, normocephalic. EOMI. PERRL. Moist mucous membranes. Pulm: CTAB. -wheezes, -rales, -rhonchi. Symmetrical chest rise. No respiratory distress. Cardiac: RRR, -mrg. No carotid bruits. Trace pedal edema. Abdominal: Nontender, nondistended, soft. Neuro: CN II-XII intact. Normal sensation and strength of upper and lower extremities. Results & Data ([facility]) Vital Signs (Past 12 Hours) Vital Signs Temp Pulse Resp BP BP Pulse Ox 12/11/19 08:12 36.6 C 69 18 177/91 H 94 12/11/19 02:47 36.6 C 74 18 151/79 H 94 12/11/19 00:21 36.7 C 70 17 117/70 93 Diagnostic Findings 12/10/19: TTE: EF 55-60%. Normal LV systolic function. Moderate aortic valve sclerosis. Mild AR. Normal RV systolic pressure. 12/10/19 ecg: NSR 87. Poor R wave progression. 12/10/19 ecg (performed after episode of unresponsiveness and chest pain): NSR 76. No significant change vs. prior ecg. Poor R wave progression milder. 12/10/19 carotid doppler: No sonographic evidence of hemodynamically significant stenosis in the right or left carotid arterial system. Antegrade flow is shown in the vertebral arteries. 12/10/19 venous doppler LLE: No DVT. Resident Activity Tracking Resident Involvement: Resident Care Provided Care Provided: Adult Hospital Medicine (1) Chest pain Chest pain type: unspecified Qualified Code(s): R07.9 - Chest pain, unspecified
[2019-12-11 11:14] VITALS: TEMP 98.4; O2SAT 93
--- NOTE | 2019-12-11 11:28 | Discharge Summary ---
Date of Service December 11, 2019 Admission HPI Per Admitting Provider Patient is an 84-year-old female with signigicant history for CVA and Heart disease with 3 stents LAD and LCX, who presents ER for left lower extremity pain. During her intial ED evaluation, the patient also experienced pressure like midsternum chest pain followed by her vison becoming fuzzy. She then had a syncopal event when her noticed her head just went limp and chin went to chest. The patients HR at the time was 50's and was pale per the RN report. Patient does not recall how long the pain lasted as she passed out, but states the pain is now gone. In regards the hip pain started when she got up to use the bedside commode last night and noted the pain to be in her left hip. She took a tablet of her hydrocodone and went back to sleep, upon waking up this morning she had difficulty bearing weight on her left leg due to the pain. Upon evaluation by our team the pain was localized to the knee. Denies any tingling or numbness. She does have paresthesias in the bilateral toes which is normal. No chest pain or shortness of breath. No other exacerbating or remitting factors. Patient normally walks with a walker. She notes that the pain is significantly worse when walking but is nonexistent when she is at rest. The majority of the pain is in her left knee. She does have some in her left hip as well but that has dissipated. She denies any new swelling in the legs. No back pain. Principal Diagnosis Left lumbar radiculopathy, Chest pain, Syncope secondary to nitroglycerin Discharge Exam Constitutional WD/WN, vitals as above + obese Eyes + anicteric sclerae Neck trachea midline, no thyromegaly Respiratory normal respiratory effort, lungs clear to auscultation Cardiovascular Rate/Rhythm: regular rate and regular rhythm Extremities: + edema (trace pitting edema legs bilat) Chest (Breasts) Chest: normal inspection of chest Gastrointestinal (Abdomen) normal bowel sounds, soft, nontender, no hepatosplenomegaly Musculoskeletal Extremities: extremities normal to inspection; no cyanosis and no clubbing Skin no rashes, warm and dry Neurologic moves all extremities, + focal motor deficit (4/5 strength RLE,4+/5 LLE throughout) and awake; + abnormal deep tendon reflexes (1+ patellar and Achilles bilat) Motor/Sensory: no sensory deficit (intact to lt touch throughout LEs bilat) Psychiatric Orientation: alert, oriented to person, oriented to place and cooperative Affect: euthymic affect Lymphatic no lymphedema Discharge Data Allergies Allergy/AdvReac Type Severity Reaction Status Date / Time vancomycin Allergy Intermediate rash Verified 12/10/19 10:06 diphenhydramine Allergy Mild Redness Verified 10/30/19 14:40 clavulanic acid Allergy Unknown Unknown Verified 12/10/19 10:06 codeine Allergy Unknown Unknown Verified 10/30/19 14:40 Consultations 12/10/19 12:54 ED Decision to Admit Stat 12/10/19 14:05 Consult Cardiology Routine Ordered Studies 12/10/19 09:40 US venous doppler LE LT Stat 12/10/19 14:22 US carotid doppler BI Stat CXR ECHO Hospital Course (1) Chest pain: Patient is here with atypical chest pain that occurred at rest and lasted just a few minutes. Does have underlying CAD Serial troponin negative, ECGs without ischemia, ECHO without WMAs -plan for outpt dobutamine stress test Appreciate Cardiology consultation (2) Syncope: Occurred after receiving nitroglycerin and BPs did drop lower around that time as per review of vitals. She had no post-ictal period and reports feeling light headed prior to passing out shortly after receiving the NTG. ECHO with only mild AI No arrhythmias on tele ACS ruled out. No further workup needed (3) Lumbar radiculopathy, acute: presented with acute LLE radiculaopthy, now resolved Has a long h/o lower back pain and spinal stenosis f/u with PCP and may need PT (4) Hypercholesterolemia: Last LDL was tested in September of 2019 at 82. continue statin (5) Hypertension: BPs controlled continue home metoprolol. losartan (6) CAD (coronary artery disease): She has a total of 3 stents with the last NJ 3 years ago continue home Plavx asa, BB plan for stress test as outpt as above (7) BMI 36.0-36.9,adult: BMI 36.9 Dispo-stable for dc to home, worked with PT and stable to do so Total Time Total Time Spent Total Time Spent (In Minutes): 35 min Total Time Includes: Examination of the Patient, Discharge Planning, Medication Reconciliation and Communication With Other Providers (Cardiology) Discharge Plan Discharge Items Patient Disposition: Home - Home Health Services Reason For Visit: chest pain Discharge Diagnosis: Left lumbar radiculopathy, Chest pain, Syncope Condition on Discharge: Fair Activity: As commented below Lifting: No more than 10 pounds Bathing: No limitations Exercise/Sports: Gradually increase as tolerated Exercise Comment: with home PT/OT Weightbearing: Full weightbearing Weightbearing Comment: with walker for assistance Non-emergency contact: Primary Care Provider and [facility] Call non-emergency contact if: you have any medication questions, your symptoms worsen, your pain is not controlled, your pain is worsening, your pain is unusual for you and your pain is concerning for you Follow-up/Referrals: Guero Gordon MD [Physician] - (Dr. Gordon's office should be contacting you with the appointment date/time of your cardiac stress test.) Shilpa Parker MD [Primary Care Provider] - 12/18/19 11:30 am (Please follow up within 1-2 weeks.) Diet: Heart Healthy Addtl Attending Provider Instructions: You were admitted after having chest pain and passing out. You did not have a heart attack, but the [facility] [employer] [facility] would like you to have a stress test as an outpatient. You likely passed out from taking nitroglycerin which lowered your blood pressure. Your left lower extremity pain could be from a pinched nerve in your lower back and the best treatment for you in this case is physical therapy. This will be arranged at home for you. Fortunately, your pain was completely resolved at the time of discharge. Follow up with your PCP within 1-2 weeks. Pending Studies at Discharge: No Stand-Alone Forms: My [facility] Medications and DC Order Prescriptions: Continued calcium carbonate [Calcium 500] 500 mg calcium (1,250 mg) Tablet 500 mg PO QAM Qty: 0 RF: 0 cetirizine 10 mg tablet 10 mg PO HS Qty: 0 RF: 0 (DME) New Image Drainable Lock N Rol 2 3/4 " misc See Dose Instructions .ROUTE .MEDSUPPLY Qty: 30 RF: 5 (DME) New Image Skin Barrier-Flange 2 3/4 " misc See Dose Instructions .ROUTE .MEDSUPPLY Qty: 30 RF: 5 hydrocodone-acetaminophen 5-325 mg tablet 1 tab PO BID PRN (Reason: Pain) Qty: 100 RF: 0 losartan 50 mg tablet 50 mg PO QAM RF: 0 atorvastatin 40 mg tablet 40 mg PO QAM Qty: 90 RF: 3 clopidogrel 75 mg tablet 75 mg PO QAM Qty: 90 RF: 3 metoprolol succinate 25 mg tablet extended release 24 hr 25 mg PO HS Qty: 90 RF: 3 aspirin [Aspirin Low Dose] 81 mg Tablet,Delayed Release (Dr/Ec) 81 mg PO QAM RF: 0 nitroglycerin 0.4 mg tablet, sublingual 0.4 mg sublingual UD PRN (Reason: Chest Pain) RF: 0 ascorbic acid (vitamin C) [Vitamin C] 500 mg Tablet 500 mg PO QAM RF: 0 pantoprazole 40 mg tablet,delayed release (DR/EC) 40 mg PO HS RF: 0 cholecalciferol (vitamin D3) [Vitamin D3] 50 mcg (2,000 unit) Capsule 50 mcg PO QAM RF: 0 levothyroxine 25 mcg tablet 25 mcg PO QAM RF: 0 polyethylene glycol 3350 [Gavilax] 17 gram/dose powder 17 g PO HS RF: 0 solifenacin [Vesicare] 10 mg tablet 10 mg PO QAM RF: 0 Centrum Silver 0.4-300-250 mg-mcg-mcg Tablet 1 tab PO QAM RF: 0 No Action lorazepam [Ativan] 0.5 mg tablet See Rx Instructions PO HS PRN (Reason: anxiety) Qty: 30 RF: 0 Discharge Orders: Discharge Order (Routine); Ordered 12/11/19 Ordered By: Vivian Hein Admission Data Admit Date/Time: 12/10/19 14:06 Attending Provider: Vivian Hein Admit Provider: Antonino Burt Primary Care Provider: Shilpa Parker Other Providers: Antonino Burt ; Guero Gordon Other Interventions: Discharge Summary Assessment (RN) Last Done: 12/11/19 13:51 Coding Level of Care Code 96749 OBS Care - Discharge Diagnoses Chest pain R07.9 Chest pain type: unspecified Syncope R55 Syncope type: unspecified Lumbar radiculopathy, acute M54.16 Hypercholesterolemia E78.00 Hypertension I10 CAD (coronary artery disease) I25.10 BMI 36.0-36.9,adult Z68.36
[2019-12-11 13:53] VITALS: BP 151/79; PULSE 66
== END 2019-12-11 14:08 | disposition home health service (06) ==
LOC: ED 09:11 → 2S 09:11 → SUATTDRO 14:06 → 2S 14:44

== ENCOUNTER 2020-03-10 19:50 | Inpatient (IN) ==
[2020-03-10] MEDS ORDERED: fentaNYL citrate 100 MCG/2 ML VIAL IV ONE (20:40)
[2020-03-10] MEDS ORDERED: ONDANSETRON INJ 2 MG/ML 2 ML VIAL IV STA (20:40)
[2020-03-10] MEDS ORDERED: SODIUM CHLORIDE 0.9% 500 ML IV SCH (20:45)
[2020-03-10 20:46] LABS: Basophils # (auto) 0.04 K/uL (0-0.2); Basophils % (auto) 0.4 %; Eosinophils # (auto) 0.15 K/uL (0-0.5); Eosinophils % (auto) 1.6 %; Hematocrit (blood only) 39.2 % (37-47); Hemoglobin 12.7 g/dL (12.0-16.0); Immature Granulocytes # (auto) 0.04 K/uL (0.00-0.02); Immature Granulocytes % (auto) 0.4 %; Lymphocytes # (auto) 3.23 K/uL (1.2-3.4); Lymphocytes % (auto) 35.4 %; Mean Corpuscular Hemoglobin 30.9 pg (25-34); Mean Corpuscular Hgb Conc 32.4 g/dL (32-36); Mean Corpuscular Volume 95.4 fL (80-100); Monocytes # (auto) 1.17 K/uL (0.11-0.59); Monocytes % (auto) 12.8 %; Neutrophils # (auto) 4.49 K/uL (1.4-6.5); Neutrophils % (auto) 49.4 %; Platelet Count 471 K/uL (130-400); RDW Coefficient of Variation 14.5 % (11.5-14.5); RDW Standard Deviation 50.9 fL (36.4-46.3); Red Blood Count 4.11 M/uL (4.2-5.4); White Blood Count 9.12 K/uL (4.8-10.8)
--- NOTE | 2020-03-10 20:50 | Emergency Department Note ---
History of Present Illness General Chief complaint: Abdominal Pain Stated complaint: AB PAIN Time Seen by Provider: 03/10/20 20:23 Source: patient and family (I talked to both of her daughters on the telephone) Mode of arrival: EMS Limitations: no limitations History of Present Illness Maximum Pain Intensity: 4 This patient comes in complaining of abdominal pain. She was seen here twice in this past week with abdominal pain had a CAT scan which showed a parastomal and other internal hernia. She had been doing okay for the last couple days around noon she said her pain got a lot worse she describes her right side it does radiate down her leg as well. She says it does not radiate into her back it hurts worse if she moves. She says she is had normal output from her ostomy which is on the left side no blood or melena in it. Denies dysuria hematuria although she felt like she had trouble urinating earlier but has been urinating fine since. No Covid exposure no fever chills no numbness or weakness she did have a CAT scan done last week which showed the parastomal hernia. She was scheduled to see a surgeon today but it got canceled because of the snow Home Medications Medication Instructions Recorded Confirmed Type calcium carbonate [Calcium 500] 500 mg PO QAM #0 09/02/12 03/10/20 History aspirin [Aspirin Low Dose] 81 mg PO QAM 11/22/17 03/10/20 History Centrum Silver 1 tab PO QAM 05/30/18 03/10/20 History nitroglycerin 0.4 mg SUBLINGUAL UD PRN 07/21/18 03/10/20 History atorvastatin 40 mg tablet 40 mg PO QAM #90 tab 04/16/19 03/10/20 Rx clopidogrel 75 mg tablet 75 mg PO QAM #90 tab 04/16/19 03/10/20 Rx metoprolol succinate 25 mg 25 mg PO HS #90 tab 04/16/19 03/10/20 Rx tablet,extended release 24 hr losartan 50 mg tablet 50 mg PO QAM tab 09/12/19 03/10/20 History cetirizine 10 mg tablet 10 mg PO HS #0 tab 09/16/19 03/10/20 History ascorbic acid (vitamin C) [Vitamin 500 mg PO QAM 12/10/19 03/10/20 History C] cholecalciferol (vitamin D3) 50 mcg PO QAM 12/10/19 03/10/20 History [Vitamin D3] pantoprazole 40 mg PO HS 12/10/19 03/10/20 History polyethylene glycol 3350 [Gavilax] 17 g PO HS 12/10/19 03/10/20 History lorazepam 0.5 mg tablet See Rx Instructions PO HS PRN #30 12/17/19 03/10/20 Rx tab levothyroxine 25 mcg tablet 25 mcg PO QAM #30 tab 01/06/20 03/10/20 Rx ostomy supplies 2 3/4" #30 ea 02/17/20 03/10/20 Rx hydrocodone 5 mg-acetaminophen 325 1 tab PO BID PRN #100 tab 02/19/20 03/10/20 Rx mg tablet solifenacin 10 mg tablet 10 mg PO DAILY #90 tab 02/24/20 03/10/20 Rx colostomy bags 2 3/4" #30 ea 02/28/20 03/10/20 Rx tramadol [Ultram] 50 mg PO Q6H PRN #20 tab 03/04/20 03/10/20 Rx Allergies Allergy/AdvReac Type Severity Reaction Status Date / Time vancomycin Allergy Intermediate rash Verified 03/10/20 20:31 diphenhydramine Allergy Mild Redness Verified 03/10/20 20:31 clavulanic acid Allergy Unknown Unknown Verified 03/10/20 20:31 codeine Allergy Unknown Unknown Verified 03/10/20 20:31 Past Med/Surg History Medical History Breast cancer CAD (coronary artery disease) NSTEMI in 08/2017; 2 JOHN to LAD and 1 to LCx Carotid artery stenosis Cataract Cerebrovascular disease CKD (chronic kidney disease) stage 3, GFR 30-59 ml/min Diverticulitis Diverticulosis of colon History of cerebrovascular accident History of open sigmoidectomy Hypercholesterolemia Hypertension Hypertensive crisis Hypothyroidism Non-hemorrhagic cerebrovascular accident (CVA) Pancreatitis Perforated bowel Pseudoaneurysm Secondary thrombocytosis Spherocytosis, hereditary Travelers' diarrhea Surgical History History of arthroscopy of right knee History of breast surgery History of section History of section History of cholecystectomy History of colectomy History of colonoscopy History of colposcopy History of dilation and curettage History of knee replacement History of lumpectomy History of splenectomy History of splenectomy History of tonsillectomy and adenoidectomy History of tubal ligation Hx of cholecystectomy S/P angioplasty with stent Status post breast lumpectomy Family History Unknown Heart disease Diabetes Breast cancer Uncle Colorectal cancer Mother , age 54 of complications post splenectomy No problems noted. 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 How many Children do You have: 3 Feels Safe at Home: Yes Dental Care, Regularly: Yes Seatbelt Use: always Sunscreen Use: Yes Assistive Devices: Walker Review of Systems A total of 10 systems reviewed and were otherwise negative Physical Exam Vital Signs Vital Signs - 24 hr 03/10/20 19:58 03/10/20 20:05 03/10/20 21:06 Temperature 36.7 C Temperature Source Oral Pulse Rate 88 Pulse Rate [Bilateral Apical] 80 Respiratory Rate 20 20 Blood Pressure 145/105 H Blood Pressure [Left Arm] 208/106 H Blood Pressure Mean 118 Blood Pressure Mean [Left Arm] 140 Pulse Oximetry 96 96 95 Oxygen Delivery Method Room Air Room Air Room Air Sepsis Recent Fever Within 48 Hours No Sepsis New/Unexplained Change in Mental Status N/A Sepsis Action Taken by Nursing No Action Required 03/10/20 22:07 Temperature Temperature Source Pulse Rate Pulse Rate [Bilateral Apical] 83 Respiratory Rate 20 Blood Pressure Blood Pressure [Left Arm] 188/100 H Blood Pressure Mean Blood Pressure Mean [Left Arm] 129 Pulse Oximetry 96 Oxygen Delivery Method Room Air Sepsis Recent Fever Within 48 Hours Sepsis New/Unexplained Change in Mental Status Sepsis Action Taken by Nursing General: Well developed well nourished older female who appears in no acute distress, breathing comfortably on room air. Normal speech HEENT: Normal cephalic atraumatic. Pupils are equal round and reactive to light. Extraocular movements are intact. Oropharynx is pink with moist mucous membranes. No swelling of the mouth lips or tongue. Neck: Supple with a midline trachea. No meningeal signs or stiffness, no JVD or bruits. No Stridor. Chest: Clear to auscultation bilaterally. No wheezes or rhonchi. No increased work of breathing. Heart: Regular rate and rhythm without murmurs or gallops. Abdomen: Soft nontender, nondistended without rebound guarding or rigidity. She does have an ostomy bag in the left abdomen which has minimal stool. When I push on the right abdomen she does not significantly tender and I do not appreciate a mass. She does complain of pain in the right leg Extremities: No cyanosis clubbing or edema. No calf tenderness or assymetry Spine/Back. Non tender to palpation. No CVA tenderness. she has no numbness in the lower back area Skin: Good turgor without rashes. Neurologic exam: Cranial nerves two through 12 are intact. Motor and sensation are intact and symmetrical throughout with exception of complaint of pain in the right leg with weakness secondary to the pain as well as some tingling Course Administered Medications Discontinued Medications Fentanyl Citrate (Fentanyl Citrate 100 Mcg/2 Ml Vial) 25 mcg IV NOW ONE Stop: 03/10/20 20:41 Last Admin: 03/10/20 20:58 Dose: 25 mcg Documented by: [id number] Sodium Chloride (Nss) 500 mls @ 999 mls/hr IV .Q31M RENETTA Stop: 03/10/20 21:15 Last Infusion: 03/10/20 21:36 Dose: 0 mls/hr Documented by: [id number] Admin: 03/10/20 20:58 Dose: 999 mls/hr Documented by: [id number] Ondansetron HCl (Ondansetron Inj 2 Mg/Ml 2 Ml Vial) 4 mg IV NOW STA Stop: 03/10/20 20:41 Last Admin: 03/10/20 20:58 Dose: 4 mg Documented by: [id number] Medical Decision Making Differential Diagnosis Hernia, bowel obstruction, sepsis, UTI, intra-abdominal process, spinal process, Covid, electrolyte or metabolic abnormality, cardiac disease Medical Records Attestation: I reviewed the patient's medical records. Home Medications Current Medication List: was personally reviewed by me Laboratory Data Attestation: I reviewed the patient's lab results. Result diagrams: 03/10/20 19:38 03/10/20 19:38 Lab Results 03/10/20 03/10/20 03/10/20 Range/Units 19:38 19:38 20:47 WBC 9.12 (4.8-10.8) K/uL RBC 4.11 L (4.2-5.4) M/uL Hgb 12.7 (12.0-16.0) g/dL Hct 39.2 (37-47) % MCV 95.4 (80-100) fL MCH 30.9 (25-34) pg MCHC 32.4 (32-36) g/dL RDW Std Deviation 50.9 H (36.4-46.3) fL RDW Coeff of Roberto 14.5 (11.5-14.5) % Plt Count 471 H (130-400) K/uL MPV 10.0 (7.4-10.4) fL Immature Gran % (Auto) 0.4 % Neut % (Auto) 49.4 % Lymph % (Auto) 35.4 % [place] % (Auto) 12.8 % Eos % (Auto) 1.6 % Baso % (Auto) 0.4 % Neut # (Auto) 4.49 (1.4-6.5) K/uL Lymph # (Auto) 3.23 (1.2-3.4) K/uL [place] # (Auto) 1.17 H (0.11-0.59) K/uL Eos # (Auto) 0.15 (0-0.5) K/uL Baso # (Auto) 0.04 (0-0.2) K/uL Immature Gran # (Auto) 0.04 H (0.00-0.02) K/uL Sodium 140 (136-145) mmol/L Potassium 4.4 (3.5-5.1) mmol/L Chloride 105 (98-107) mmol/L Carbon Dioxide 29 (21-32) mmol/L Anion Gap 6.0 (3-11) BUN 23 H (7-18) mg/dl Creatinine 1.23 H (0.6-1.2) mg/dl Est Cr Clr Drug Dosing 34.8 ml/min Est GFR ( Amer) 47.0 Est GFR (Non-Af Amer) 40.5 BUN/Creatinine Ratio 18.6 (10-20) Glucose 138 H (70-99) mg/dl Lactate (0.4-2.0) mmol/L Calcium 9.1 (8.5-10.1) mg/dl Total Bilirubin 0.2 (0.2-1) mg/dl AST 32 (15-37) U/L ALT 43 (12-78) U/L Alkaline Phosphatase 118 H (45-117) U/L Total Protein 7.7 (6.4-8.2) gm/dl Albumin 3.1 L (3.4-5.0) gm/dl Globulin 4.6 H (2.5-4.0) gm/dl Albumin/Globulin Ratio 0.7 L (0.9-2) Lipase 111 (73-393) U/L Urine Color Yellow Urine Appearance Clear (Clear) Urine pH 7.5 (4.5-7.5) Ur Specific [place] 1.011 (1.000-1.030) Urine Protein Negative (Negative) Urine Glucose (UA) Negative (Negative) Urine Ketones Negative (Negative) Urine Blood Trace H (Negative) Urine Nitrite Negative (Negative) Urine Bilirubin Negative (Negative) Urine Urobilinogen Negative (Negative) Ur Leukocyte Esterase 3+ H (Negative) Urine WBC (Auto) 5-10 H (0-5) /hpf Urine RBC (Auto) 0-4 (0-4) /hpf U Hyaline Cast (Auto) 0 (0-5) /lpf U Epithel Cells (Auto) >30 H (0-5) /lpf Urine Bacteria (Auto) Negative (Negative) Ur Renal Epithelial Cell 0-5 (0-5) /lpf COVID-19 Eval Order 03/10/20 03/10/20 Range/Units 20:52 22:15 WBC (4.8-10.8) K/uL RBC (4.2-5.4) M/uL Hgb (12.0-16.0) g/dL Hct (37-47) % MCV (80-100) fL MCH (25-34) pg MCHC (32-36) g/dL RDW Std Deviation (36.4-46.3) fL RDW Coeff of Roberto (11.5-14.5) % Plt Count (130-400) K/uL MPV (7.4-10.4) fL Immature Gran % (Auto) % Neut % (Auto) % Lymph % (Auto) % [place] % (Auto) % Eos % (Auto) % Baso % (Auto) % Neut # (Auto) (1.4-6.5) K/uL Lymph # (Auto) (1.2-3.4) K/uL [place] # (Auto) (0.11-0.59) K/uL Eos # (Auto) (0-0.5) K/uL Baso # (Auto) (0-0.2) K/uL Immature Gran # (Auto) (0.00-0.02) K/uL Sodium (136-145) mmol/L Potassium (3.5-5.1) mmol/L Chloride (98-107) mmol/L Carbon Dioxide (21-32) mmol/L Anion Gap (3-11) BUN (7-18) mg/dl Creatinine (0.6-1.2) mg/dl Est Cr Clr Drug Dosing ml/min Est GFR ( Amer) Est GFR (Non-Af Amer) BUN/Creatinine Ratio (10-20) Glucose (70-99) mg/dl Lactate 1.7 (0.4-2.0) mmol/L Calcium (8.5-10.1) mg/dl Total Bilirubin (0.2-1) mg/dl AST (15-37) U/L ALT (12-78) U/L Alkaline Phosphatase (45-117) U/L Total Protein (6.4-8.2) gm/dl Albumin (3.4-5.0) gm/dl Globulin (2.5-4.0) gm/dl Albumin/Globulin Ratio (0.9-2) Lipase (73-393) U/L Urine Color Urine Appearance (Clear) Urine pH (4.5-7.5) Ur Specific [place] (1.000-1.030) Urine Protein (Negative) Urine Glucose (UA) (Negative) Urine Ketones (Negative) Urine Blood (Negative) Urine Nitrite (Negative) Urine Bilirubin (Negative) Urine Urobilinogen (Negative) Ur Leukocyte Esterase (Negative) Urine WBC (Auto) (0-5) /hpf Urine RBC (Auto) (0-4) /hpf U Hyaline Cast (Auto) (0-5) /lpf U Epithel Cells (Auto) (0-5) /lpf Urine Bacteria (Auto) (Negative) Ur Renal Epithelial Cell (0-5) /lpf COVID-19 Eval Order [facility] Imaging Data Radiologist's Impression: STAT RAD: Normal appendix. Bowel loops are nondilated. No acute inflammatory changes seen involving the bowel. There is a large bilobed left in the central abdominal wall hernia measuring 7 x 24 cm containing a large and small bowel loops. There is left-sided colostomy. No dilated bowel loops or caliber change is seen to indicate obstruction. No pneumoperitoneum or abscess. The liver pancreas and adrenal glands and kidneys are unremarkable. Aorta is calcified but not dilated. Incidental note is made of severe coronary calcification. Little change since previous ECG Data Attestation: I personally reviewed and interpreted this ECG as follows: Indication: + abdominal pain Rate (beats per minute): 81 Rhythm: + normal sinus ECG Intervals/blocks: + Normal QRS, + Normal QT and + Normal DE ECG [place]: + Normal ECG ST segments: + Normal ST segments ECG Findings: no PACs and no PVCs Comparison ECG Date: from (12/10/19) Change: no significant change MDM Narrative This patient comes in as described above. 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 She is here for treatment and evaluation of the abdominal pain this is been intermittent and she was seen here last week twice for this and had a CAT scan which was concerning for parastomal hernia. IV access established and she was hydrated with a 500 cc IV normal saline bolus. EKG and multiple blood tests was obtained. I also ordered a CAT scan to rule out bowel obstruction and urinalysis and lactic acid. I did talk to both of her daughters. She has no white count or fever to suggest infection. Her lactic acid is normal and therefore unlikely sepsis or bowel obstruction. CAT scan her abdomen is unchanged from the other day and shows a large hernia but no other acute findings. Urinalysis shows contamination. There is no signal electrolyte or metabolic abnormalities. Talk to her family at length she has been here 3 times in the last week with abdominal pain she also got increasingly weaker she complained of right leg pain. They tell me that she is normally weak on that right leg from a previous stroke points with plantar more pain. She has no weakness in the right arm or face. She has had no fall or trauma. She has no other strokelike symptoms. Additionally the leg is pink and well-perfused appearing she has normal distal pulses and nothing to suggest arterial compromise. There is nothing suggest cellulitis. She is no calf tenderness or swelling. Geovanni Grewal from surgery did consult and see her in the ED and did not feel there is any acute surgical process tonight. I do think she needs to be admitted given her increasing weakness and 3 visits with abdominal pain, for further evaluation. I have consulted Dr. Houston to see her in the ER for these measures. Given that she will be admitted/observed I also did order Covid testing. Impression & Plan Abdominal pain, Colostomy in place, Pain of right leg, Weakness Discharge Plan Visit Data Chief Complaint: Abdominal Pain Stated Complaint: AB PAIN ED Provider: Fermin Vital Discharge Problem: Abdominal pain, Colostomy in place, Pain of right leg, Weakness Forms Stand Alone Forms: My [facility] [employer] Prescriptions Prescriptions: No Action calcium carbonate [Calcium 500] 500 mg calcium (1,250 mg) Tablet 500 mg PO QAM Qty: 0 RF: 0 cetirizine 10 mg tablet 10 mg PO HS Qty: 0 RF: 0 lorazepam [Ativan] 0.5 mg tablet See Rx Instructions PO HS PRN (Reason: anxiety) Qty: 30 RF: 0 levothyroxine 25 mcg tablet 25 mcg PO QAM Qty: 30 RF: 2 (DME) [employer] Skin Barrier-Flange 2 3/4 " misc See Dose Instructions .ROUTE .MEDSUPPLY Qty: 30 RF: 5 hydrocodone-acetaminophen 5-325 mg tablet 1 tab PO BID PRN (Reason: Pain) Qty: 100 RF: 0 solifenacin [Vesicare] 10 mg tablet 10 mg PO DAILY Qty: 90 RF: 3 (DME) New Image Drainable Lock N Rol 2 3/4 " misc See Dose Instructions .ROUTE .MEDSUPPLY Qty: 30 RF: 5 losartan 50 mg tablet 50 mg PO QAM RF: 0 atorvastatin 40 mg tablet 40 mg PO QAM Qty: 90 RF: 3 clopidogrel 75 mg tablet 75 mg PO QAM Qty: 90 RF: 3 metoprolol succinate 25 mg tablet extended release 24 hr 25 mg PO HS Qty: 90 RF: 3 aspirin [Aspirin Low Dose] 81 mg Tablet,Delayed Release (Dr/Ec) 81 mg PO QAM RF: 0 nitroglycerin 0.4 mg tablet, sublingual 0.4 mg sublingual UD PRN (Reason: Chest Pain) RF: 0 ascorbic acid (vitamin C) [Vitamin C] 500 mg Tablet 500 mg PO QAM RF: 0 pantoprazole 40 mg tablet,delayed release (DR/EC) 40 mg PO HS RF: 0 cholecalciferol (vitamin D3) [Vitamin D3] 50 mcg (2,000 unit) Capsule 50 mcg PO QAM RF: 0 polyethylene glycol 3350 [Gavilax] 17 gram/dose powder 17 g PO HS RF: 0 tramadol [Ultram] 50 mg tablet 50 mg PO Q6H PRN (Reason: pain) Qty: 20 RF: 0 Centrum Silver 0.4-300-250 mg-mcg-mcg Tablet 1 tab PO QAM RF: 0 Discharge Problem: Abdominal pain Qualifiers: Abdominal location: right lower quadrant Qualified Code(s): R10.31 - Right lower quadrant pain
[2020-03-10 20:53] LABS: Albumin Level 3.1 gm/dl (3.4-5.0); BUN Creatinine Ratio 18.6 (10-20); Calcium 9.1 mg/dl (8.5-10.1); Creatinine Clr Calc Pharmacy 34.8 ml/min; Est GFR (Non-African American) 40.5; Potassium 4.4 mmol/L (3.5-5.1)
[2020-03-10 20:56] LABS: Albumin Globulin Ratio 0.7 (0.9-2); Bilirubin,Total 0.2 mg/dl (0.2-1); Globulin 4.6 gm/dl (2.5-4.0); Total Protein 7.7 gm/dl (6.4-8.2)
[2020-03-10 20:59] LABS: Appearance Urine Clear (Clear); Bacteria Urine Automated Negative (Negative); Bilirubin Urine Negative (Negative); Blood Urine Trace (Negative); Cast Urine Automated 0 /lpf (0-5); Color Urine Yellow; Epithelial Cell Urine Auto >30 /lpf (0-5); Glucose Urine UA Negative (Negative); Ketones Urine Negative (Negative); Leukocyte Esterase Urine 3+ (Negative); Nitrite Urine Negative (Negative); Protein Urine Negative (Negative); RBC Urine Automated 0-4 /hpf (0-4); Specific Gravity Urine 1.011 (1.000-1.030); Urobilinogen Urine Negative (Negative); pH Urine 7.5 (4.5-7.5)
[2020-03-10 21:08] LABS: Renal Epithelial Cells Urine 0-5 /lpf (0-5)
--- NOTE | 2020-03-10 22:22 | Surgery Consultation ---
Date of Consultation March 10, 2020 Assessment & Plan (1) Abdominal pain: The cause of patient's pain is unclear. It is possible that it could be related to her parastomal hernia. As the patient has not had any nausea, vomiting, and has had normal colostomy function along with no obstruction noted on CT scan in the presence of a normal white blood cell count and a nonelevated lactic acid there is no indication for emergent surgical intervention at this time. Patient is to be admitted by the medical service. She will be further evaluated by general surgery in the morning with further recommendations to follow upon the attending physician's review of the CAT scan. Additional rodrick mmendations will be forthcoming based on further review of the patient's clinical course as unfolds. History of Present Illness Reason for Consultation: Abdominal pain History of Present Illness This is an 85-year-old female who presents to [facility] for a bdominal pain. Patient notes that she has been having on and off abdominal pain that she describes as a cramp-like pain. Today's visit in the emergency department is her third visit since March 04. She was initially seen on March 04 where she had a CT scan of her abdomen that showed a large parastomal hernia without any evidence of bowel obstruction. She was seen again in the emergency department on March 05 and at that time the treating physician evaluated her her pain had resolved. She was able to be discharged home on both of these occasions. She continued to have ongoing abdominal pain she presented to the emergency department today. Again the patient describes her pain as a cramp-like pain that comes and goes. Since her pain began she has not had a single episode of nausea or vomiting. She she has a history of a colostomy she says was performed by Dr. Doss of [facility] general surgery and she notes that the colostomy has been functioning in a normal fashion and she feels that the amount of output has been normal although her daughter has noted that the caliber of the stool appears looser. She has not had any fevers, shakes, or chills. She has not noted any bloody output from her colostomy. Today in the emergency department a CT scan of the abdomen was again performed that showed a large parastomal hernia. There is no evidence of free air there is no evidence of bowel obstruction. She did have labs where her white blood cell count was noted to be normal and she had a lactate level that was not elevated. She was noted to be afebrile. Hemoglobin hematocrit were noted to be within the normal range. Her platelet count was elevated at 471,000. Pressure profile showed sodium, potassium were within normal range. Her BUN and creatinine were slightly elevated at 23 and 1.23 but these were similar to values noted during her previous emergency department visit. At the time of my exam the patient was resting comfortably in bed in no distress. The patient noted that on March 09 of this year she was to see Dr. Tolentino of the [facility] physician group due to her previous episodes of abdominal pain. This appointment got canceled due to inclement weather. Allergies Allergy/AdvReac Type Severity Reaction Status Date / Time vancomycin Allergy Intermediate rash Verified 03/10/20 20:31 diphenhydramine Allergy Mild Redness Verified 03/10/20 20:31 clavulanic acid Allergy Unknown Unknown Verified 03/10/20 20:31 codeine Allergy Unknown Unknown Verified 03/10/20 20:31 Home Medications Medication Instructions Recorded Confirmed Type calcium carbonate [Calcium 500] 500 mg PO QAM #0 09/02/12 03/10/20 History aspirin [Aspirin Low Dose] 81 mg PO QAM 11/22/17 03/10/20 History Centrum Silver 1 tab PO QAM 05/30/18 03/10/20 History nitroglycerin 0.4 mg SUBLINGUAL UD PRN 07/21/18 03/10/20 History atorvastatin 40 mg tablet 40 mg PO QAM #90 tab 04/16/19 03/10/20 Rx clopidogrel 75 mg tablet 75 mg PO QAM #90 tab 04/16/19 03/10/20 Rx metoprolol succinate 25 mg 25 mg PO HS #90 tab 04/16/19 03/10/20 Rx tablet,extended release 24 hr losartan 50 mg tablet 50 mg PO QAM tab 09/12/19 03/10/20 History cetirizine 10 mg tablet 10 mg PO HS #0 tab 09/16/19 03/10/20 History ascorbic acid (vitamin C) [Vitamin 500 mg PO QAM 12/10/19 03/10/20 History C] cholecalciferol (vitamin D3) 50 mcg PO QAM 12/10/19 03/10/20 History [Vitamin D3] pantoprazole 40 mg PO HS 12/10/19 03/10/20 History polyethylene glycol 3350 [Gavilax] 17 g PO HS 12/10/19 03/10/20 History lorazepam 0.5 mg tablet See Rx Instructions PO HS PRN #30 12/17/19 03/10/20 Rx tab levothyroxine 25 mcg tablet 25 mcg PO QAM #30 tab 01/06/20 03/10/20 Rx ostomy supplies 2 3/4" #30 ea 02/17/20 03/10/20 Rx hydrocodone 5 mg-acetaminophen 325 1 tab PO BID PRN #100 tab 02/19/20 03/10/20 Rx mg tablet solifenacin 10 mg tablet 10 mg PO DAILY #90 tab 02/24/20 03/10/20 Rx colostomy bags 2 3/4" #30 ea 02/28/20 03/10/20 Rx tramadol [Ultram] 50 mg PO Q6H PRN #20 tab 03/04/20 03/10/20 Rx Patient History Medical History Breast cancer CAD (coronary artery disease) NSTEMI in 08/2017; 2 JOHN to LAD and 1 to LCx Carotid artery stenosis Cataract Cerebrovascular disease CKD (chronic kidney disease) stage 3, GFR 30-59 ml/min Diverticulitis Diverticulosis of colon History of cerebrovascular accident History of open sigmoidectomy Hypercholesterolemia Hypertension Hypertensive crisis Hypothyroidism Non-hemorrhagic cerebrovascular accident (CVA) Pancreatitis Perforated bowel Pseudoaneurysm Secondary thrombocytosis Spherocytosis, hereditary Travelers' diarrhea Surgical History History of arthroscopy of right knee History of breast surgery History of section History of section History of cholecystectomy History of colectomy History of colonoscopy History of colposcopy History of dilation and curettage History of knee replacement History of lumpectomy History of splenectomy History of splenectomy History of tonsillectomy and adenoidectomy History of tubal ligation Hx of cholecystectomy S/P angioplasty with stent Status post breast lumpectomy Family History Unknown Heart disease Diabetes Breast cancer Uncle Colorectal cancer Mother , age 54 of complications post splenectomy No problems noted. 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 How many Children do You have: 3 Feels Safe at Home: Yes Dental Care, Regularly: Yes Seatbelt Use: always Sunscreen Use: Yes Assistive Devices: Walker Review of Systems Constitutional: no fever and no chills Eyes: no diplopia Ear, Nose, Mouth, Throat: no ear pain Respiratory: no cough and no dyspnea Cardiovascular: no chest pain Gastrointestinal: + abdominal pain; no nausea and no vomiting Genitourinary: no dysuria Musculoskeletal: + problem reported (Right leg pain) Integumentary: no rash Neurologic: + unsteadiness (He is reported to be unsteady and she requires a walker) Physical Exam Constitutional: well developed and well nourished; no acute distress Eyes: no conjunctival abnormality ENMT: Ears: no hearing impairment Neck: trachea midline Respiratory: normal respiratory effort; no respiratory distress and no labored breathing Cardiovascular: Rate/Rhythm: regular rate and regular rhythm Gastrointestinal (Abdomen): Patient's abdomen is soft and nondistended. Bowel sounds are present. Patient had a colostomy noted in the left lower quadrant which was pink and viable. There is a small amount of brown stool in the collection bag. Patient had a very rotund and obese abdomen and I could therefore not palpate any fascial defects. At the time of my exam palpation did not elicit a painful response. There is no rebound tenderness. Musculoskeletal: Straight leg raise did not elicit any pain bilaterally. Skin: normal turgor Neurologic: Patient can move all 4 extremities and follows simple commands without noted focal deficits. She can dorsiflex plantar flex and extend both great toes. These exercises were slightly weaker on the right but the patient did note that such exercises, cause pain in her right leg. Results & Data ([facility]) Vital Signs (Past 12 Hours) Vital Signs Temp Pulse Pulse Resp BP BP Pulse Ox 03/10/20 22:07 83 20 188/100 H 96 03/10/20 21:06 80 20 208/106 H 95 03/10/20 20:05 96 03/10/20 19:58 36.7 C 88 20 145/105 H 96 PG Care Time/CCT Total # of Minutes Spent Total Time Spent with Patient: Total time spent is greater than 50% in coordination of care (as documented) at patient's floor/unit and/or counseling patient: Coding Level of Care Code 46528 Inpt Consult Level 5 Diagnoses Abdominal pain R10.30 Abdominal location: lower abdomen, unspecified (1) Abdominal pain Abdominal location: lower abdomen, unspecified Qualified Code(s): R10.30 - Lower abdominal pain, unspecified
[2020-03-10] MEDS ORDERED: POLYETHYLENE (MIRALAX) 17 GM PACK PO STA (23:20)
--- NOTE | 2020-03-10 23:22 | History & Physical Report ---
Date of Service March 10, 2020 Assessment & Plan (1) Abdominal pain: 85-year-old female past medical history significant for hypertension, CAD, CVA, chronic low back pain on chronic Friedens, hypothyroidism, GERD, CKD stage III, _ status post ileostomy admitted for recurrence of abdominal pain of unclear source. Abdominal pain: On arrival with recurrence of abdominal pain, which she has undergone evaluation for previously with negative imaging. Lab work largely without abnormal findings save for mildly elevated alk phos. Normal lipase. Lactate negative. Urine dirty catch, no urinary symptoms. CTAP performed here shows parastomal hernia with bowel within without incarceration, fairly significant stool burden throughout without obstruction. Poor visualization of appendix however no findings suggestive of appendicitis. Patient has a history of diverticulosis, does not recall why she has ileostomy but suspect secondary to diverticulosis. No history of IBD or colorectal cancer. Patient underwent surgical consultation in ER, plan for reevaluation in the morning without need for emergent surgical correction of hernia. Patient endorses daily bowel movements, on chronic opioid therapy. We will give 3 packets of MiraLAX now, then 1 packet twice daily following. Have also added Senna as needed. We will also await surgical recommendations in morning. N.p.o. for now with NSS@125 cc/hr. Zofran as needed for nausea. Will add as needed morphine if patient's pain does not improve with bowel movements, n.p.o. and IV fluids. At risk for polypharmacy: At home patient is on Friedens twice daily and lorazepam 0.5 mg nightly. Was also recently prescribed tramadol for abdominal pain. Patient does not have anxiety on problem list, reports that lorazepam is for sleep. Patient does have a history of falls and syncopal episodes. Possible that some of these events were exacerbated/worsened by polypharmacy. CAD/CVA history: Patient without chest pain or other anginal equivalents. No changes in mental status or focal neurologic deficits. Continue home Toprol 25 mg daily, losartan 50 mg daily, aspirin, Plavix, atorvastatin 40 mg daily. Hypothyroidism: Continue home levothyroxine. Chronic low back pain/OA: History of lumbar back pain, on chronic Friedens twice daily. Tramadol medication was prescribed to patient during evaluation of abdominal pain. Will hold for now. CKD stage III: Patient's baseline creatinine ~1.0, with mild elevation this admission to 1.23 with elevated BUN. Likely secondary to poor oral fluid intake, repeat BMP in a.m. GERD: Continue home pantoprazole. CODE STATUS: Full code FEN GI: N.p.o., NSS at 125 cc/hr DVT prophylaxis: Heparin 5000 units every 8 hours Dispo: MedSurg for surgical evaluation, n.p.o., IV fluids, bowel cleanout (2) Abdominal wall hernia: (3) CKD (chronic kidney disease) stage 3, GFR 30-59 ml/min: (4) GERD (gastroesophageal reflux disease): (5) Hypothyroidism: (6) History of cardioembolic cerebrovascular accident (CVA): (7) Osteoarthritis: (8) Hypertension: (9) CAD (coronary artery disease): (10) Low back pain: (11) Parastomal hernia: (12) Polypharmacy: History of Present Illness Chief Complaint: Abdominal pain Primary Care Provider: Shilpa Parker MD 85-year-old female past medical history significant for hypertension, CAD, CVA, chronic low back pain on chronic Friedens, hypothyroidism, GERD, CKD stage III, chronic ileostomy presented to ED for diffuse but worst in right lower quadrant abdominal pain chronic and crampy in nature, without associated nausea or vomiting, fevers or chills, dizziness, chest pain, shortness of breath. Has not noted any diarrhea or bloody stool from stoma. Of note, this is the third time since 03/04/2020 that the patient has been seen in the ER for abdominal pain. ER evaluation has included CTAP which showed large parastomal hernia but otherwise no acute findings, no appendicitis noted. Lab work in ER has been largely normal with normal lipase, mildly elevated alk phos, no leukocytosis. Patient had upcoming outpatient surgical consultation for abdominal pain prior to admission today. Patient feels more comfortable after receiving fentanyl and Zofran in ER. Allergies Allergy/AdvReac Type Severity Reaction Status Date / Time vancomycin Allergy Intermediate rash Verified 03/10/20 20:31 diphenhydramine Allergy Mild Redness Verified 03/10/20 20:31 clavulanic acid Allergy Unknown Unknown Verified 03/10/20 20:31 codeine Allergy Unknown Unknown Verified 03/10/20 20:31 Home Medications Medication Instructions Recorded Confirmed Type calcium carbonate [Calcium 500] 500 mg PO QAM #0 09/02/12 03/10/20 History aspirin [Aspirin Low Dose] 81 mg PO QAM 11/22/17 03/10/20 History Centrum Silver 1 tab PO QAM 05/30/18 03/10/20 History nitroglycerin 0.4 mg SUBLINGUAL UD PRN 07/21/18 03/10/20 History atorvastatin 40 mg tablet 40 mg PO QAM #90 tab 04/16/19 03/10/20 Rx clopidogrel 75 mg tablet 75 mg PO QAM #90 tab 04/16/19 03/10/20 Rx metoprolol succinate 25 mg 25 mg PO HS #90 tab 04/16/19 03/10/20 Rx tablet,extended release 24 hr losartan 50 mg tablet 50 mg PO QAM tab 09/12/19 03/10/20 History cetirizine 10 mg tablet 10 mg PO HS #0 tab 09/16/19 03/10/20 History ascorbic acid (vitamin C) [Vitamin 500 mg PO QAM 12/10/19 03/10/20 History C] cholecalciferol (vitamin D3) 50 mcg PO QAM 12/10/19 03/10/20 History [Vitamin D3] pantoprazole 40 mg PO HS 12/10/19 03/10/20 History polyethylene glycol 3350 [Gavilax] 17 g PO HS 12/10/19 03/10/20 History lorazepam 0.5 mg tablet See Rx Instructions PO HS PRN #30 12/17/19 03/10/20 Rx tab levothyroxine 25 mcg tablet 25 mcg PO QAM #30 tab 01/06/20 03/10/20 Rx ostomy supplies 2 3/4" #30 ea 02/17/20 03/10/20 Rx hydrocodone 5 mg-acetaminophen 325 1 tab PO BID PRN #100 tab 02/19/20 03/10/20 Rx mg tablet solifenacin 10 mg tablet 10 mg PO DAILY #90 tab 02/24/20 03/10/20 Rx colostomy bags 2 3/4" #30 ea 02/28/20 03/10/20 Rx tramadol [Ultram] 50 mg PO Q6H PRN #20 tab 03/04/20 03/10/20 Rx Past Med/Surg History Medical History Breast cancer CAD (coronary artery disease) NSTEMI in 08/2017; 2 JOHN to LAD and 1 to LCx Carotid artery stenosis Cataract Cerebrovascular disease CKD (chronic kidney disease) stage 3, GFR 30-59 ml/min Diverticulitis Diverticulosis of colon History of cerebrovascular accident History of open sigmoidectomy Hypercholesterolemia Hypertension Hypertensive crisis Hypothyroidism Non-hemorrhagic cerebrovascular accident (CVA) Pancreatitis Perforated bowel Pseudoaneurysm Secondary thrombocytosis Spherocytosis, hereditary Travelers' diarrhea Surgical History History of arthroscopy of right knee History of breast surgery History of section History of section History of cholecystectomy History of colectomy History of colonoscopy History of colposcopy History of dilation and curettage History of knee replacement History of lumpectomy History of splenectomy History of splenectomy History of tonsillectomy and adenoidectomy History of tubal ligation Hx of cholecystectomy S/P angioplasty with stent Status post breast lumpectomy Family History Unknown Heart disease Diabetes Breast cancer Uncle Colorectal cancer Mother , age 54 of complications post splenectomy No problems noted. 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 How many Children do You have: 3 Other Information That Helps Us Care for You: No Feels Safe at Home: Yes Safety Concerns: Feels Safe At This Time Dental Care, Regularly: Yes Seatbelt Use: always Sunscreen Use: Yes Assistive Devices: Glasses and Walker Review of Systems Review of Systems: All systems reviewed & are unremarkable except as noted in HPI & below Constitutional: no fever, no chills and no malaise Respiratory: no cough and no dyspnea Cardiovascular: no chest pain, no palpitations and no edema Gastrointestinal: no abdominal pain, no constipation and no diarrhea/loose stools Genitourinary: no dysuria and no hematuria Physical Exam Constitutional: WD/WN, vitals as above Eyes: PERRL, conjunctivae normal, anicteric sclerae ENMT: external ear and nose normal, oropharynx normal Neck: normal visual inspection Respiratory: normal respiratory effort, lungs clear to auscultation Cardiovascular: RRR, no murmur, no edema Gastrointestinal (Abdomen): Hyperactive bowel sounds, abdomen mildly diffusely tender without with pain to palpation seemingly worse in RLQ. Abdomen is soft, nondistended. Musculoskeletal: no cyanosis or clubbing, extremities motor strength 5/5 Skin: no rashes, warm and dry Neurologic: AAOx3, normal speech. No tremor. Psychiatric: A+Ox3, euthymic affect Results & Data Results & Data ([facility]) Vital Signs (Past 12 Hours) Vital Signs Temp Pulse Pulse Resp BP BP Pulse Ox 03/10/20 22:40 86 20 197/108 H 98 03/10/20 22:07 83 20 188/100 H 96 03/10/20 21:06 80 20 208/106 H 95 03/10/20 20:05 96 03/10/20 19:58 36.7 C 88 20 145/105 H 96 Code Status & VTE Plan VTE Prophylaxis Plan VTE Prophylaxis will be ordered: Yes Supervising Physician Co-Signing Physician Notes Attending addendum: I have physically seen this patient, have supervised the medical residents activities, and agree with the H&P unless as otherwise noted. Assessment and Plan: Abdominal pain- CTAP notes parastomal hernia containing bowel, but no incarceration. Large fecal burden Aggressive bowel regimen Seen by general surgery in the ED without surgical indication noted CAD/hypertension/cerebrovascular disease- Continue usual dosing of metoprolol succinate, losartan, aspirin, Plavix and atorvastatin. GERD- Continue pantoprazole Remaining orders and notations as noted Resident Activity Tracking Resident Involvement: Resident Care Provided Care Provided: Adult Hospital Medicine (1) Low back pain Back pain laterality: unspecified Chronicity: chronic Sciatica presence: unspecified whether sciatica present Qualified Code(s): M54.5 - Low back pain; G89.29 - Other chronic pain (2) Parastomal hernia Obstruction and gangrene presence: without obstruction or gangrene Qualified Code(s): K43.5 - Parastomal hernia without obstruction or gangrene (3) CKD (chronic kidney disease) stage 3, GFR 30-59 ml/min Chronic kidney disease stage 3 subtype: stage 3b (GFR 30-44) Qualified Code(s): N18.32 - Chronic kidney disease, stage 3b (4) CAD (coronary artery disease) Associated angina: without angina Coronary Disease-Associated Artery/Lesion type: unspecified vessel or lesion type [place] vs. transplanted heart: [place] heart Qualified Code(s): I25.10 - Atherosclerotic heart disease of [place] coronary artery without angina pectoris (5) Hypothyroidism Hypothyroidism type: unspecified Qualified Code(s): E03.9 - Hypothyroidism, unspecified (6) Osteoarthritis Osteoarthritis location: unspecified site Osteoarthritis type: unspecified Qualified Code(s): M19.90 - Unspecified osteoarthritis, unspecified site (7) GERD (gastroesophageal reflux disease) Esophagitis presence: without esophagitis Qualified Code(s): K21.9 - Gastro- esophageal reflux disease without esophagitis (8) Abdominal pain Abdominal location: lower abdomen, unspecified Qualified Code(s): R10.30 - Lower abdominal pain, unspecified (9) Hypertension Hypertension type: essential hypertension Qualified Code(s): I10 - Essential (primary) hypertension
[2020-03-10] MEDS: SODIUM CHLORIDE 0.9% 1000ML 1,000 ML IV SCH (23:32)
[2020-03-11] MEDS ORDERED: ACETAMINOPHEN 325 MG TAB PO PRN (00:32)
[2020-03-11] MEDS ORDERED: traMADol HCL 50 MG TABLET PO PRN (00:32)
[2020-03-11] MEDS ORDERED: LORazepam 0.5 MG TAB PO PRN ×2 (00:32→17:37)
[2020-03-11] MEDS ORDERED: ONDANSETRON INJ 2 MG/ML 2 ML VIAL IV PRN (00:32)
[2020-03-11] MEDS ORDERED: NITROGLYCERIN SL 0.4 MG/TAB TAB SL PRN (00:32)
[2020-03-11] MEDS: LEVOTHYROXINE SODIUM 25 MCG TABLET PO SCH (06:36)
[2020-03-11] MEDS: HEPARIN SOD 5,000 UNIT/0.5 ML VIAL SQ SCH ×3 (06:37→21:12)
[2020-03-11 07:32] LABS: Hematocrit (blood only) 37.9 % (37-47); Hemoglobin 12.8 g/dL (12.0-16.0); Mean Corpuscular Hemoglobin 31.8 pg (25-34); Mean Corpuscular Hgb Conc 33.8 g/dL (32-36); Mean Platelet Volume 9.6 fL (7.4-10.4); Platelet Count 481 K/uL (130-400); RDW Coefficient of Variation 14.5 % (11.5-14.5); RDW Standard Deviation 49.8 fL (36.4-46.3); Red Blood Count 4.03 M/uL (4.2-5.4); White Blood Count 10.07 K/uL (4.8-10.8)
[2020-03-11 07:59] LABS: Albumin Level 2.9 gm/dl (3.4-5.0); BUN Creatinine Ratio 15.5 (10-20); Calcium 9.3 mg/dl (8.5-10.1); Creatinine Clr Calc Pharmacy 42.5 ml/min; Est GFR (African American) 60.3; Est GFR (Non-African American) 52.1; Potassium 4.2 mmol/L (3.5-5.1)
[2020-03-11 08:02] LABS: Albumin Globulin Ratio 0.6 (0.9-2); Bilirubin,Total 0.3 mg/dl (0.2-1); Globulin 4.6 gm/dl (2.5-4.0); Total Protein 7.5 gm/dl (6.4-8.2)
--- NOTE | 2020-03-11 08:12 | CT Scan Report ---
ABDOMEN AND PELVIS CT WITHOUT CONTRAST CT DOSE: 950.40 mGy.cm HISTORY: Acute generalized abdominal pain with reported abdominal hernia. 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 eval for obstruction, hx of hernia TECHNIQUE: Multiaxial CT images of the abdomen and pelvis were performed without contrast. A dose lo wering technique was utilized adhering to the principles of ALARA. COMPARISON STUDY: CT abdomen pelvis 03/04/2020 FINDINGS: Extensive coronary artery calcifications. 3 mm solid nodule the basal right lower lobe is unchanged. Mild bibasilar atelectasis. No pneumatosis or pneumoperitoneum. Absent spleen. Cholecystectomy. Mild dilation of the intrahepatic and extrahepatic biliary tree is likely postsurgical. There is unchanged mild dilation of the pancreatic duct without obstructing stone or lesion. Mild generalized pancreati c atrophy. Unremarkable liver. Patency of the hepatic and portal veins. Probable cyst of the superior pole right kidney, 12 mm. Kidneys are otherwise unremarkable. Mild urinary bladder distention with t he left anterior aspect of the urinary bladder partially extending into a lower abdominal wall fat fi lled hernia. The uterus and adnexa are unremarkable. Calcified plaque of the abdominal aorta and bran ch vessels. No pathologically enlarged lymph nodes. No bowel obstruction. There is progressively worsened wall thickening of the rectal stump with associ ated perirectal stranding. There are a few prominent perirectal lymph nodes measuring up to 8 mm. Par tial colectomy with left lower quadrant colostomy. 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 Additionally, there is a large right paracentral mid abdominal wall hernia with diastases measuring over 10 cm which contains mesenteric fat with a nonob structed loops of both large and small bowel. Colonic diverticulosis without acute diverticulitis. Th e appendix is not definitively seen. No secondary signs of acute appendicitis. Demineralized appearan ce of the bones with degenerative changes of the spine, pelvis and hips. No acute fracture or suspici ous bone lesion. IMPRESSION: 1. 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 There is circumferential wall thickening of the rectal stump with perirectal stranding and a few prominent perirectal lymph nodes. This may be on an infectious or inflammatory basis, however could be correlated with endoscopy to exclude underlyin g lesion. This finding was called/faxed to the floor at time of dictation. 2. Large bowel containing parastomal hernia is noted in addition to a large right paracentral mid abd ominal hernia containing mesenteric fat, nonobstructed large and small bowel. 3. Colonic diverticulosis. 4. Cholecystectomy and splenectomy. 5. Additional findings as above. ACT 112: Negative or not required by law. The above report was generated using voice recognition software. It may contain grammatical, syntax o r spelling errors. Electronically signed by: Curtis Olivarez M.D. 03/11/2020 8:11 AM
[2020-03-11] MEDS ORDERED: SENNA 8.6 MG TAB PO SCH (09:00)
--- NOTE | 2020-03-11 09:05 | Surgery Progress Note ---
Date of Service March 11, 2020 Assessment & Plan (1) Abdominal pain: Patient here with lower abdominal pain that has been worsening over the course of the past month. She has a history of partial colectomy with colostomy - CT scan performed yesterday revealed: 1. 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 There is circumferential wall thickening of the rectal stump with perirectal stranding and a few prominent perirectal lymph nodes. This may be on an infectious or inflammatory basis, however could be correlated with endoscopy to exclude underlying lesion. This finding was called/faxed to the floor at time of dictation. 2. Large bowel containing parastomal hernia is noted in addition to a large right paracentral mid abdominal hernia containing mesenteric fat, non obstructed large and small bowel - Vital signs are stable, WBC 10 - She denies n/v and her ostomy appears to be functioning well - On exam she has some generalized discomfort in the lower abdomen. Abd is otherwise soft and non distended - Unclear if her hernia is the cause of her symptoms, but on review of CT scan is non-obstructed. We do not plan on any acute surgical intervention for patient at this time. She has large hernia's with not much abdominal domain and would benefit from a tertiary center for surgical intervention if warranted. After discussion with patient she wishes surgery as last resort - From our standpoint patient is okay to start a diet as above. pt feeling better today. minimal discomfort. some pain over her midline hernia which is currently reduced. +large parastomal hernia though stoma looks good and functioning normally. would require a very large operation on a relatively high risk pt. she would really like to avoid surgery and I agree...surgery should/would be a last resort. will advance diet and if she does well could be d/c'd later today/tomorrow. I recommend f/u with [facility] colorectal service for a plan regarding her large parastomal hernia should she need surgery in the future. no indication for urgent surgery now. Admission and Anticipated Discharge Date Admission Date: March 10, 2020 Subjective Patient reports she is still having some abdominal pain today. Says it's in the right lower abdomen and radiates down the middle of her right leg. She states the pain is not correlated with food intake or any inciting factors in particular. She denies n/v. Her ostomy is functioning. Physical Exam Physical Exam: awake/alert Respiratory: normal respiratory effort Gastrointestinal (Abdomen): Inspection/Auscultation: + abdominal surgical scar (midline abdominal scar); abdomen not distended Percussion/Palpation: + abdomen tender (generalized ttp in lower abdomen) and abdomen soft + ostomy viable and functioning Results & Data ([facility]) Vital Signs (Past 12 Hours) Vital Signs Temp Pulse Pulse Resp BP BP Pulse Ox 03/11/20 00:50 149/78 H 03/11/20 00:45 36.6 C 89 18 191/99 H 94 03/10/20 23:41 79 20 164/77 H 92 03/10/20 22:40 86 20 197/108 H 98 03/10/20 22:07 83 20 188/100 H 96 03/10/20 21:06 80 20 208/106 H [address] WITHOUT CONTRAST CT DOSE: 950.40 mGy.cm HISTORY: Acute generalized abdominal pain with reported abdominal hernia. 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 eval for obstruction, hx of hernia TECHNIQUE: Multiaxial CT images of the abdomen and pelvis were performed without contrast. A dose lowering technique was utilized adhering to the principles of ALARA. COMPARISON STUDY: CT abdomen pelvis 03/04/2020 FINDINGS: Extensive coronary artery calcifications. 3 mm solid nodule the basal right lower lobe is unchanged. Mild bibasilar atelectasis. No pneumatosis or pneumoperitoneum. Absent spleen. Cholecystectomy. Mild dilation of the intrahepatic and extrahepatic biliary tree is likely postsurgical. There is unchanged mild dilation of the pancreatic duct without obstructing stone or lesion. Mild generalized pancreatic atrophy. Unremarkable liver. Patency of the hepatic and portal veins. Probable cyst of the superior pole right kidney, 12 mm. Kidneys are otherwise unremarkable. Mild urinary bladder distention with the left anterior aspect of the urinary bladder partially extending into a lower abdominal wall fat filled hernia. The uterus and adnexa are unremarkable. Calcified plaque of the abdominal aorta and branch vessels. No pathologically enlarged lymph nodes. No bowel obstruction. There is progressively worsened wall thickening of the rectal stump with associated perirectal stranding. There are a few prominent perirectal lymph nodes measuring up to 8 mm. 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 Additionally, there is a large right paracentral mid abdominal wall hernia with diastases measuring over 10 cm which contains mesenteric fat with a nonobstructed loops of both large and small bowel. Colonic diverticulosis without acute diverticulitis. The appendix is not definitively seen. No secondary signs of acute appendicitis. Demineralized appearance of the bones with degenerative changes of the spine, pelvis and hips. No acute fracture or suspicious bone lesion. IMPRESSION: 1. 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 There is circumferential wall thickening of the rectal stump with perirectal stranding and a few prominent perirectal lymph nodes. This may be on an infectious or inflammatory basis, however could be correlated with endoscopy to exclude underlying lesion. This finding was called/faxed to the floor at time of dictation. 2. Large bowel containing parastomal hernia is noted in addition to a large right paracentral mid abdominal hernia containing mesenteric fat, nonobstructed large and small bowel. 3. Colonic diverticulosis. 4. Cholecystectomy and splenectomy. 5. Additional findings as above. ACT 112: Negative or not required by law. The above report was generated using voice recognition software. It may contain grammatical, syntax or spelling errors. Electronically signed by: Curtis Olivarez M.D. 03/11/2020 8:11 AM PG Care Time/CCT Total # of Minutes Spent Total Time Spent with Patient: Total time spent is greater than 50% in coordination of care (as documented) at patient's floor/unit and/or counseling patient: Coding Level of Care Code 97277 Subseq Hosp Care Lvl 3 Diagnoses Abdominal pain R10.30 Abdominal location: lower abdomen, unspecified (1) Abdominal pain Abdominal location: lower abdomen, unspecified Qualified Code(s): R10.30 - Lower abdominal pain, unspecified
[2020-03-11 09:14] LABS: Estimated Average Glucose 117 mg/dl; Hemoglobin A1C 5.7 % (4.5-5.6)
[2020-03-11] MEDS: HYDROCODONE/ACETAMOPHEN 5/325MG TAB PO PRN (09:26)
[2020-03-11] MEDS: LOSARTAN POTASSIUM 50 MG TAB PO SCH (09:26)
[2020-03-11] MEDS: ATORVASTATIN 40 MG TAB PO SCH (09:26)
[2020-03-11] MEDS: ASCORBIC ACID 500 MG TAB PO SCH (09:27)
[2020-03-11] MEDS: ASPIRIN 81 MG ECTAB PO SCH (09:27)
[2020-03-11] MEDS: CLOPIDOGREL BISULFATE 75 MG TAB PO SCH (09:27)
[2020-03-11] MEDS: POLYETHYLENE (MIRALAX) 17 GM PACK PO SCH ×2 (09:28→21:12)
[2020-03-11] MEDS: SODIUM CHLORIDE 0.9% 1000ML 1,000 ML IV SCH ×2 (09:29→17:58)
--- NOTE | 2020-03-11 10:49 | Hospitalist Progress Note ---
Date of Service March 11, 2020 Assessment & Plan (1) Abdominal pain: 85-year-old female past medical history significant for hypertension, CAD s/p stent x2 in 2018, CVA, chronic low back pain on chronic [place], hypothyroidism, GERD, CKD stage III, status post ileostomy admitted for recurren ce of abdominal pain of unclear source. Abdominal Pain -Multiple presentations to ED in the past 1 week alone with 2 month history of diffuse abdominal pain -CT Abdomen/Pelvis report noting large bowel containing parastomal hernia AND large R paracentral mid-abdominal hernia containing mesenteric fat and nonobstructive small and large bowel. Also noting circumferential wall thickening of the rectal stump with perirectal stranding and a few prominent perirectal lymph nodes concerning for infection/inflammation. -General Surgery Consulted -No acute surgical intervention planned at this time -In regards to hernias patient would be best served with f/u at a tertiary center such as [facility] Colorectal service if needed in future -OK to advance diet -GI Consulted -No acute indication at this time for endoscopic procedure -Do not feel that the rectal thickening on CT is related to patients current RLQ pain -Possible diversion colitis -Can be seen outpatient for discussion of flex sig of rectal stump. -Fever 38.2F noted today, no clear source but suspect GI related -Blood cultures drawn -Empiric Zosyn, will transition to Unasyn. With patients frail status would want empirics for 7-10 days, plan for oral Augmentin at DC to complete course. -Will continue with Miralax BID and PRN Senna, if no improvement in pain will up-scale bowel regiment as chronic constipation may be cause of discomfort -DC fluids, Diet advanced and tolerated clears, Advance to solids Chronic Deconditioning/Polypharmacy -Discussed with patients daughter who notes she feels patient has been getting weaker and weaker the past few months noting hx of falls -In addition with polypharmacy with [place] and Ativan use, likely adding to patients weakness and ambulatory dysfunction. -PT/OT ordered -Suspect will require SNF or rehab placement after stay CAD/CVA -S/P stent x3 in 2018 -Continue home Metoprolol -Continue home Losartan -Continue home Aspirin -Continue home Plavix Continue home Atorvastatin Hypothyroidism -Continue home Levothyroxine Insomnia -Continue patients home Ativan PRN -Will add on melatonin, plan to use prior to Ativan. Chronic Low Back Pain -Continue home [place] 5mg BID -Would likely benefit patient to decrease/decrease need -PT/OT as above CKD III -At baseline of ~1 GERD -Continue home Pantoprazole Dispo: Med/Surg, progressing towards discharge with likely need for SNF/Rehab placement, pt/ot ordered FEN: Minced and moist diet DVT: Heparin 5000 TID Code: Full, discussed with patients [place]el[place] daughter Yanelis. Admission and Anticipated Discharge Date Admission Date: March 10, 2020 Supervising Physician Co-Signing Physician Notes I personally examined the patient and verified all guaman points of history and exa m, discussed case, and agree with decision making with Dr Reese. belly feeling better, ate OK clears no problem vitals noted nad heent nc at mmm breathing unlabored no accessory muscles good effort skin no rashes no pallor or icterus abd soft nd mild/moderate R mid abdomen tenderness in area of ventral hernia but no guarding/rebound abdominal pain - constipation/hernia vs proctitis - agree w GI as far as empiric abx since fever but area of sx doesn't match. if no improvement into tomorrow - bowel regimen as copious stool noted on CT. otherwise as above Subjective Patient evaluated at the bedside this AM. Patient noted that her primary concern currently was that she was having some discomfort in her LE bilaterally and that the pain was roughly a 6/10. When asked about her abdominal discomfort overnight she denied having any, but did state that she had been having some on and off pain for the past 2 months. She felt that currently she had abdominal pain again 6/10, and that it was primarily overlying the RLQ. She describes the pain as a "cramping" and denies any associated nausea or vomiting. She feels her ostomy has been working appropriately, but cannot recall the primary reason for it's placement. Denies any subjective fever, chills, SOB, chest pain. Review of Systems Constitutional: + fatigue; no fever and no chills Eyes: no photophobia and no worsening vision Ear, Nose, Mouth, Throat: no ear pain and no dizziness Respiratory: no cough, no chest congestion, no dyspnea, no dyspnea on exertion and no pain on inspiration Cardiovascular: + lightheadedness (when sitting up ); no chest pain, no chest pain at rest, no radiating jaw, neck or arm pain, no dyspnea, no dyspnea on exertion and no palpitations Gastrointestinal: + abdominal pain (RLQ ); no nausea, no vomiting, no constipation and no diarrhea/loose stools Genitourinary: no dysuria and no hematuria Musculoskeletal: + muscle weakness (LE b/l ) Integumentary: no rash Neurologic: no falls and no headache(s) Physical Exam Constitutional: well developed and well nourished; no acute distress Eyes: PERRL, conjunctivae normal, anicteric sclerae ENMT: external ear and nose normal, oropharynx normal Neck: normal visual inspection Respiratory: normal respiratory effort, lungs clear to auscultation Cardiovascular: RRR, no murmur, no edema Gastrointestinal (Abdomen): Inspection/Auscultation: abdomen normal to inspection (ostomy site well appearing), normal bowel sounds and + visible herniation (lateral to umbilicus on R ); abdomen not distended Perc ussion/Palpation: + abdomen tender (diffuse throughout, worse on RLQ), abdomen soft and + hernia (periumbilical on R ); no guarding and abdomen not rigid Musculoskeletal: Head/Neck/Chest: normocephalic and head atraumatic Limited MSK exam due to patient non-compliance. Able to move all extremities when asked, though would not against any active force. Stated pain 6/10 in LE at rest and 8/10 with palpation without specificity in location. Neurologic: AAOx3, normal speech. No tremor. Psychiatric: Orientation: alert, oriented to person, oriented to place and + guarded; + not oriented to time Eye Contact: + fair eye contact Results & Data Results & Data ([facility]) Vital Signs (Past 12 Hours) Vital Signs Temp Pulse Pulse Pulse Resp BP BP 03/11/20 08:00 38.2 C H 84 18 153/86 H 03/11/20 00:50 149/78 H 03/11/20 00:45 36.6 C 89 18 191/99 H 03/10/20 23:41 79 20 164/77 H Pulse Ox 03/11/20 08:00 94 03/11/20 00:50 03/11/20 00:45 94 03/10/20 23:41 92 Resident Activity Tracking Resident Involvement: Resident Care Provided Care Provided: Adult Hospital Medicine (1) Abdominal pain Abdominal location: lower abdomen, unspecified Qualified Code(s): R10.30 - Lower abdominal pain, unspecified
[2020-03-11] MEDS ORDERED: PIPERACILL/TAZOBAC CONSULT ACTIVE PRN (10:57)
[2020-03-11] MEDS ORDERED: PIPERACILLIN/TAZOBACTAM 4.5 GM in DEXTROSE 5% 100 ML IV STA (11:03)
--- NOTE | 2020-03-11 11:44 | Gastrointestinal Consultation ---
Date of Consultation March 11, 2020 Assessment & Plan (1) Abnormal CT of the abdomen: The GI service was consulted due to abdominal pain with abnormal CT abdomen pelvis which demonstrated circumferential wall thickening of the rectal stump with perirectal stranding and a few prominent perirectal lymph nodes. It also demonstrated large bowel containing parastomal hernia in addition to a large right paracentral mid abdominal hernia. Unclear etiology of abdominal pain. Her pain seems to be lower mid to right lower quadrant abdominal pain. She is tender with palpation over this area. Denies any discomfort of the rectum, pressure, pain, or rectal seepage. The CT A/P finding is likely incidental and not related to her current recurrent pain. Would not recommend endoscopic procedure at this time. Patient will likely require outpatient follow-up for further evaluation of CT A/P findings. Patient has been evaluated by surgical services and their notes reviewed. Please refer to supervising physician addendum for further recommendations. Supervising Physician Co-Signing Physician Notes I have seen and examined the patient. I agree with note above by LENNIE Schaefer except as noted below. HPI Pt with RLQ pain for last week up to 11/15 at home yesterday currently 06/15. CT a/p rectal thickening/stranding but she denies rectal pain. PE physical with nurse and DR Reese present. Abdomen LLQ stoma and peristomal hernia noted, RLQ hernia with mild point tenderness around edge of hernia. NO rebound. External anal exam grossly normal. Attempted digital exam but complained of discomfort so did not attempt further. Had a fever today. A/P Rectal thickening on CT--pt asymptomatic so do not feel this is contributing to current problem of RLQ pain. Etiology could be diversion colitis. Discussed with patient and DR Reese regarding we can see her in the office as an outpt. to discuss flex sig of rectal stump. RLQ pain--improving, could be related to ventral hernia. WBC normal. Discussed with Dr Reese that abx reasonable for now given fever. If acute worsening would defer to surgery to see if there is incarceration. History of Present Illness Attending Physician: West Sanderson DO History of Present Illness The patient is a pleasant 85-year-old female with past medical history to include hypertension, CAD, CVA, chronic low back pain on chronic [place], hypothyroidism, GERD, stage III CKD, partial colectomy status post LLQ colostomy who was admitted for recurrent abdominal pain of unclear etiology. The patient presented to the emergency x3 within the last week due to lower mid to right lower quadrant abdominal pain. She was subsequently admitted for further evaluation. Surgical service has been consulted. GI was consulted due to abnormal CT A/P. 03/10/2020: CT abdomen and pelvis without contrast was obtained due to acute generalized abdominal pain. Demonstrated partial colectomy with left lower quadrant colostomy. Circumferential wall thickening of the rectal stump with perirectal stranding and a few prominent perirectal lymph nodes is noted. Large bowel containing parastomal hernia is noted in addition to a large right paracentral mid abdominal hernia containing mesenteric fat, non-obstructed large and small bowel. Colonic diverticulosis. Cholecystectomy and splenectomy. 03/04/2020: CT abdomen and pelvis with IV contrast was obtained to acute abdominal pain demonstrated no bowel obstruction or pneumoperitoneum. Nonvisualization of the appendix. 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 Large bowel containing parastomal hernia noted in addition to a large right paracentral mid abdominal hernia containing mesenteric fat, as well as a non-obstructed large and small bowel. Colonic diverticulosis without acute diverticulitis. On exam/interview today, the patient reports that she continues to have abdomin al pain. She rates this as a 5 out of 10. She states pain is lower mid to right lower quadrant. She reports symptoms have been ongoing for at least the last week. Denies any vomiting. Denies any nausea. She reports her colostomy located in the right lower quadrant has had normal output. She states that perhaps it has been a little bit more loose than normal. She states her normal output from the colostomy is soft in consistency. Denies any bright red blood or melena with colostomy output. She denies any rectal pain or pressure. Denies any seepage from her rectum. Past surgical history includes: Splenectomy, C-sections x4, partial colectomy with colostomy, cholecystectomy 04/04/2017: The patient was evaluated by Dr. Conner of colorectal surgery for bleeding of her rectal stump. At that time, a colonoscopy was noted from 2017 did not demonstrate abnormalities but unclear if rectal stump was evaluated. History of Feng's procedure for diverticular disease. It was recommended that the patient undergo flexible sigmoidoscopy under sedation. It does not appear that flexible sigmoidoscopy was completed. The patient is . She has 3 living children and 1 child that is . She is retired. She reports she was a member of the [employer] for 14 years, retired in 1995. She is a lifetime non-smoker with no significant secondhand smoke exposures. She denies alcohol intake. She denies use of recreational drugs including marijuana. Allergies Allergy/AdvReac Type Severity Reaction Status Date / Time vancomycin Allergy Intermediate rash Verified 03/10/20 20:31 diphenhydramine Allergy Mild Redness Verified 03/10/20 20:31 clavulanic acid Allergy Unknown Unknown Verified 03/10/20 20:31 codeine Allergy Unknown Unknown Verified 03/10/20 20:31 Home Medications Medication Instructions Recorded Confirmed Type calcium carbonate [Calcium 500] 500 mg PO QAM #0 09/02/12 03/10/20 History aspirin [Aspirin Low Dose] 81 mg PO QAM 11/22/17 03/10/20 History Centrum Silver 1 tab PO QAM 05/30/18 03/10/20 History nitroglycerin 0.4 mg SUBLINGUAL UD PRN 07/21/18 03/10/20 History atorvastatin 40 mg tablet 40 mg PO QAM #90 tab 04/16/19 03/10/20 Rx clopidogrel 75 mg tablet 75 mg PO QAM #90 tab 04/16/19 03/10/20 Rx metoprolol succinate 25 mg 25 mg PO HS #90 tab 04/16/19 03/10/20 Rx tablet,extended release 24 hr losartan 50 mg tablet 50 mg PO QAM tab 09/12/19 03/10/20 History cetirizine 10 mg tablet 10 mg PO HS #0 tab 09/16/19 03/10/20 History ascorbic acid (vitamin C) [Vitamin 500 mg PO QAM 12/10/19 03/10/20 History C] cholecalciferol (vitamin D3) 50 mcg PO QAM 12/10/19 03/10/20 History [Vitamin D3] pantoprazole 40 mg PO HS 12/10/19 03/10/20 History polyethylene glycol 3350 [Gavilax] 17 g PO HS 12/10/19 03/10/20 History lorazepam 0.5 mg tablet See Rx Instructions PO HS PRN #30 12/17/19 03/10/20 Rx tab levothyroxine 25 mcg tablet 25 mcg PO QAM #30 tab 01/06/20 03/10/20 Rx ostomy supplies 2 3/4" #30 ea 02/17/20 03/10/20 Rx hydrocodone 5 mg-acetaminophen 325 1 tab PO BID PRN #100 tab 02/19/20 03/10/20 Rx mg tablet solifenacin 10 mg tablet 10 mg PO DAILY #90 tab 02/24/20 03/10/20 Rx colostomy bags 2 3/4" #30 ea 02/28/20 03/10/20 Rx tramadol [Ultram] 50 mg PO Q6H PRN #20 tab 03/04/20 03/10/20 Rx Patient History Medical History Breast cancer CAD (coronary artery disease) NSTEMI in 08/2017; 2 JOHN to LAD and 1 to LCx Carotid artery stenosis Cataract Cerebrovascular disease CKD (chronic kidney disease) stage 3, GFR 30-59 ml/min Diverticulitis Diverticulosis of colon History of cerebrovascular accident History of open sigmoidectomy Hypercholesterolemia Hypertension Hypertensive crisis Hypothyroidism Non-hemorrhagic cerebrovascular accident (CVA) Pancreatitis Perforated bowel Pseudoaneurysm Secondary thrombocytosis Spherocytosis, hereditary Travelers' diarrhea Surgical History History of arthroscopy of right knee History of breast surgery History of section History of section History of cholecystectomy History of colectomy History of colonoscopy History of colposcopy History of dilation and curettage History of knee replacement History of lumpectomy History of splenectomy History of splenectomy History of tonsillectomy and adenoidectomy History of tubal ligation Hx of cholecystectomy S/P angioplasty with stent Status post breast lumpectomy Family History Unknown Heart disease Diabetes Breast cancer Uncle Colorectal cancer Mother , age 54 of complications post splenectomy No problems noted. 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 How many Children do You have: 3 Other Information That Helps Us Care for You: No Feels Safe at Home: Yes Safety Concerns: Feels Safe At This Time Dental Care, Regularly: Yes Seatbelt Use: always Sunscreen Use: Yes Assistive Devices: Denture - Lower, Glasses and Walker Review of Systems Review of Systems: All systems reviewed & are unremarkable except as noted in HPI & below Physical Exam Constitutional: well developed, well nourished and + obese Eyes: no conjunctival abnormality ENMT: Ears: no hearing impairment Neck: normal visual inspection Respiratory: normal respiratory effort; no respiratory distress and no labored breathing Cardiovascular: Rate/Rhythm: regular rate and regular rhythm Extremities: no edema Gastrointestinal (Abdomen): Inspection/Auscultation: abdomen normal to inspection, normal bowel sounds and + visible herniation; abdomen not distended Percussion/Palpation: + abdomen tender (worse with RLQ palpation), abdomen soft and + tympanic to percussion; no guarding and abdomen not rigid LLQ colostomy, stoma pink without excoriation noted, soft brown stool noted at stoma and in colostomy bag Musculoskeletal: Extremities: no cyanosis and no clubbing Neurologic: PERRL, EOMI, accommodation nl, no face palsy, no dysarthria Psychiatric: Orientation: alert Results & Data ([facility]) Vital Signs (Past 12 Hours) Vital Signs Temp Pulse Pulse Pulse Resp BP BP 03/11/20 08:00 38.2 C H 84 18 153/86 H 03/11/20 00:50 149/78 H 03/11/20 00:45 36.6 C 89 18 191/99 H 03/10/20 23:41 79 20 164/77 H 03/10/20 22:40 86 20 197/108 H 03/10/20 22:07 83 20 188/100 H Pulse Ox 03/11/20 08:00 94 03/11/20 00:50 03/11/20 00:45 94 03/10/20 23:41 92 03/10/20 22:40 98 03/10/20 22:07 96 Laboratory Results - last 24 hr 03/10/20 03/10/20 03/10/20 19:38 19:38 20:47 WBC 9.12 RBC 4.11 L Hgb 12.7 Hct 39.2 MCV 95.4 MCH 30.9 MCHC 32.4 RDW Std Deviation 50.9 H RDW Coeff of Roberto 14.5 Plt Count 471 H MPV 10.0 Immature Gran % (Auto) 0.4 Neut % (Auto) 49.4 Lymph % (Auto) 35.4 Reagan % (Auto) 12.8 Eos % (Auto) 1.6 Baso % (Auto) 0.4 Neut # (Auto) 4.49 Lymph # (Auto) 3.23 Reagan # (Auto) 1.17 H Eos # (Auto) 0.15 Baso # (Auto) 0.04 Immature Gran # (Auto) 0.04 H Sodium 140 Potassium 4.4 Chloride 105 Carbon Dioxide 29 Anion Gap 6.0 BUN 23 H Creatinine 1.23 H Est Cr Clr Drug Dosing 34.8 Est GFR ( Amer) 47.0 Est GFR (Non-Af Amer) 40.5 BUN/Creatinine Ratio 18.6 Glucose 138 H Estimat Average Glucose Hemoglobin A1c Lactate Calcium 9.1 Total Bilirubin 0.2 AST 32 ALT 43 Alkaline Phosphatase 118 H Total Protein 7.7 Albumin 3.1 L Globulin 4.6 H Albumin/Globulin Ratio 0.7 L Lipase 111 Urine Color Yellow Urine Appearance Clear Urine pH 7.5 Ur Specific Lug[place] 1.011 Urine Protein Negative Urine Glucose (UA) Negative Urine Ketones Negative Urine Blood Trace H Urine Nitrite Negative Urine Bilirubin Negative Urine Urobilinogen Negative Ur Leukocyte Esterase 3+ H Urine WBC (Auto) 5-10 H Urine RBC (Auto) 0-4 U Hyaline Cast (Auto) 0 U Epithel Cells (Auto) >30 H Urine Bacteria (Auto) Negative Ur Renal Epithelial Cell 0-5 COVID-19 Eval Order SARS-CoV-2, RNA, NAAT 03/10/20 03/10/20 03/10/20 20:52 22:15 22:15 WBC RBC Hgb Hct MCV MCH MCHC RDW Std Deviation RDW Coeff of Roberto Plt Count MPV Immature Gran % (Auto) Neut % (Auto) Lymph % (Auto) Reagan % (Auto) Eos % (Auto) Baso % (Auto) Neut # (Auto) Lymph # (Auto) Reagan # (Auto) Eos # (Auto) Baso # (Auto) Immature Gran # (Auto) Sodium Potassium Chloride Carbon Dioxide Anion Gap BUN Creatinine Est Cr Clr Drug Dosing Est GFR ( Amer) Est GFR (Non-Af Amer) BUN/Creatinine Ratio Glucose Estimat Average Glucose Hemoglobin A1c Lactate 1.7 Calcium Total Bilirubin AST ALT Alkaline Phosphatase Total Protein Albumin Globulin Albumin/Globulin Ratio Lipase Urine Color Urine Appearance Urine pH Ur Specific [place] Urine Protein Urine Glucose (UA) Urine Ketones Urine Blood Urine Nitrite Urine Bilirubin Urine Urobilinogen Ur Leukocyte Esterase Urine WBC (Auto) Urine RBC (Auto) U Hyaline Cast (Auto) U Epithel Cells (Auto) Urine Bacteria (Auto) Ur Renal Epithelial Cell COVID-19 Eval [facility] SARS-CoV-2, RNA, NAAT NEGATIVE 03/11/20 03/11/20 03/11/20 07:08 07:08 07:08 WBC 10.07 RBC 4.03 L Hgb 12.8 Hct 37.9 MCV 94.0 MCH 31.8 MCHC 33.8 RDW Std Deviation 49.8 H RDW Coeff of Roberto 14.5 Plt Count 481 H MPV 9.6 Immature Gran % (Auto) Neut % (Auto) Lymph % (Auto) Reagan % (Auto) Eos % (Auto) Baso % (Auto) Neut # (Auto) Lymph # (Auto) Reagan # (Auto) Eos # (Auto) Baso # (Auto) Immature Gran # (Auto) Sodium 140 Potassium 4.2 Chloride 108 H Carbon Dioxide 24 Anion Gap 8.0 BUN 16 Creatinine 1.00 Est Cr Clr Drug Dosing 42.5 Est GFR ( Amer) 60.3 Est GFR (Non-Af Amer) 52.1 BUN/Creatinine Ratio 15.5 Glucose 113 H Estimat Average Glucose 117 Hemoglobin A1c 5.7 H Lactate Calcium 9.3 Total Bilirubin 0.3 AST 25 ALT 36 Alkaline Phosphatase 111 Total Protein 7.5 Albumin 2.9 L Globulin 4.6 H Albumin/Globulin Ratio 0.6 L Lipase Urine Color Urine Appearance Urine pH Ur Specific [place] Urine Protein Urine Glucose (UA) Urine Ketones Urine Blood Urine Nitrite Urine Bilirubin Urine Urobilinogen Ur Leukocyte Esterase Urine WBC (Auto) Urine RBC (Auto) U Hyaline Cast (Auto) U Epithel Cells (Auto) Urine Bacteria (Auto) Ur Renal Epithelial Cell COVID-19 Eval Order SARS-CoV-2, RNA, NAAT
--- NOTE | 2020-03-11 15:58 | Electrocardiogram Report ---
Test Reason : Blood Pressure : / mmHG Vent. Rate : 081 BPM Atrial Rate : 081 BPM P-R Int : 174 ms QRS Dur : 086 ms QT Int : 404 ms P-R-T Axes : 011 010 002 degrees QTc Int : 469 ms Normal sinus rhythm Poor R wave progression, consider anterior GA vs. lead placement vs. LVH Abnormal ECG When compared with ECG of 10-DEC-2019 12:46, No significant change was found Confirmed by Guero Gordon ([id number]) on 03/11/2020 3:58:08 PM Referred By: REFERRED SELF Confirmed By:Guero Gordon
[2020-03-11] MEDS ORDERED: PIPERACILLIN/TAZOBACTAM 4.5 GM in DEXTROSE 5% 100 ML IV SCH (16:00)
[2020-03-11] MEDS ORDERED: SENNA 8.6 MG TAB PO PRN (17:29)
[2020-03-11] MEDS ORDERED: MELATONIN 3 MG TAB PO PRN (17:36)
--- NOTE | 2020-03-11 18:07 | Billing Data ---
Date of Service March 11, 2020 Coding Level of Care Code 67662 Subseq Hosp Care Lvl 3
[2020-03-11] MEDS: AMPICILLIN/SULBACTAM SOD 3,000 MG in 0.9 % SODIUM CHLORIDE 100 ML IV SCH (18:21)
[2020-03-11] MEDS: CETIRIZINE HCL 10 MG TABLET PO SCH (21:11)
[2020-03-11] MEDS: PANTOprazole 40 MG TAB PO SCH (21:11)
[2020-03-11] MEDS: METOPROLOL SUCC 25MG EXT REL TAB PO SCH (21:11)
[2020-03-12] MEDS: AMPICILLIN/SULBACTAM SOD 3,000 MG in 0.9 % SODIUM CHLORIDE 100 ML IV SCH ×5 (00:12→23:31)
--- NOTE | 2020-03-12 00:18 | Billing Data ---
Date of Service March 12, 2020 Coding Level of Care Code 90719 Initial Inpt Care Lvl 3
[2020-03-12] MEDS: HEPARIN SOD 5,000 UNIT/0.5 ML VIAL SQ SCH ×3 (05:34→21:07)
[2020-03-12] MEDS: LEVOTHYROXINE SODIUM 25 MCG TABLET PO SCH (05:34)
[2020-03-12 06:46] LABS: Basophils # (auto) 0.05 K/uL (0-0.2); Basophils % (auto) 0.4 %; Eosinophils # (auto) 0.12 K/uL (0-0.5); Hematocrit (blood only) 36.9 % (37-47); Hemoglobin 12.2 g/dL (12.0-16.0); Immature Granulocytes # (auto) 0.03 K/uL (0.00-0.02); Immature Granulocytes % (auto) 0.3 %; Lymphocytes # (auto) 2.24 K/uL (1.2-3.4); Lymphocytes % (auto) 18.9 %; Mean Corpuscular Hemoglobin 31.1 pg (25-34); Mean Corpuscular Hgb Conc 33.1 g/dL (32-36); Mean Corpuscular Volume 94.1 fL (80-100); Mean Platelet Volume 9.3 fL (7.4-10.4); Monocytes % (auto) 8.4 %; Neutrophils # (auto) 8.43 K/uL (1.4-6.5); Platelet Count 493 K/uL (130-400); RDW Coefficient of Variation 14.7 % (11.5-14.5); RDW Standard Deviation 49.5 fL (36.4-46.3); Red Blood Count 3.92 M/uL (4.2-5.4); White Blood Count 11.87 K/uL (4.8-10.8)
--- NOTE | 2020-03-12 07:16 | Hospitalist Progress Note ---
Date of Service March 12, 2020 Assessment & Plan (1) Abdominal pain: 85-year-old female past medical history significant for hypertension, CAD s/p stent x2 in 2018, CVA, chronic low back pain on chronic [place], hypothyroidism, GERD, CKD stage III, status post ileostomy admitted for recurren ce of abdominal pain of unclear source. Abdominal Pain -Multiple presentations to ED the week of 03/04/20 with 2 month history of diffuse abdominal pain -CT Abdomen/Pelvis report noting large bowel containing parastomal hernia AND large R paracentral mid-abdominal hernia containing mesenteric fat and nonobstructive small and large bowel. Also noting circumferential wall th ickening of the rectal stump with perirectal stranding and a few prominent perirectal lymph nodes concerning for infection/inflammation. -General Surgery Consulted -No acute surgical intervention planned at this time -In regards to hernias patient would be best served with f/u at a tertiary center such as [facility] Colorectal service if needed in future -OK to advance diet -GI Consulted -No acute indication at this time for endoscopic procedure -Do not feel that the rectal thickening on CT is related to patients current RLQ pain -Possible diversion colitis -Can be seen outpatient for discussion of flex sig of rectal stump. -Fever 38.2F noted 03/11/20, no clear source but suspect GI related -Blood cultures drawn - NGTD -Empiric Zosyn, transitioned to Unasyn. With patients frail status would want empirics for 7-10 days, will transition to Oral Cefdinir and Metronidazole on discharge (pt has allergy to Clavulanic Acid) -Will continue with Miralax BID and PRN Senna -Diet advanced yesterday, patient tolerating well Chronic Deconditioning/Polypharmacy -Discussed with patients daughter who notes she feels patient has been getting weaker and weaker the past few months noting hx of falls -In addition with polypharmacy with [place] and Ativan use, likely adding to patients weakness and ambulatory dysfunction. -PT/OT ordered -Suspect will require SNF or rehab placement after stay -- case management discussed with patients daughter, agreeable for SNF -Plan for DC to [facility] 03/14/20 -Patient medically stable for discharge to rehab. CAD/CVA -S/P stent x3 in 2018 -Continue home Metoprolol -Continue home Losartan -Continue home Aspirin -Continue home Plavix -Continue home Atorvastatin Hypothyroidism -Continue home Levothyroxine Insomnia -Continue patients home Ativan PRN -Will add on melatonin, plan to use prior to Ativan. Chronic Low Back Pain -Continue home Orange 5mg BID -Would likely benefit patient to decrease/decrease need -PT/OT as above CKD III -At baseline of ~1 GERD -Continue home Pantoprazole Dispo: Med/Surg, medically stable for DC to SNF, Plan for [facility] 03/14/20 FEN: Minced and moist diet DVT: Heparin 5000 TID Code: Full, discussed with patients POA daughter Yanelis. Admission and Anticipated Discharge Date Admission Date: March 11, 2020 Supervising Physician Co-Signing Physician Notes I personally examined the patient and verified all guaman points of history and exam, discussed case, and agree with decision making with Dr Reese. Continues to feel better, less abdominal pain, ate better although not great yet. vitals noted nad heent nc at mmm breathing unlabored no accessory muscles good effort skin no rashes no pallor or icterus abd soft nd mild at worst R mid abdomen tenderness in area of ventral hernia but no guarding/reboundmuch improved from yesterday abdominal pain - constipation/hernia vs proctitis -improved dramatically, unclear if it was due to bowel throughput or antibiotics. Continue empiric antibiotics, continue to follow bowel output and titrate bowel regimen as necessary, outpatient flex sig. Dispoawaiting [place], according to case management it sounds like she will be able to go on March 14 otherwise as above Subjective Patient evaluated at the bedside this morning. Noted that her abdominal pain had significantly improved, only a 2/10 at most now. Does still note discomfort in her lower extremities and worries that "they'll never feel better." No other fevers or chills since yesterday. Denies any nausea, vomiting, SOB, chest pain, fever, chills, headache. Review of Systems Constitutional: + fatigue; no fever and no chills Eyes: no worsening vision Ear, Nose, Mouth, Throat: no dizziness Respiratory: no cough, no chest congestion, no dyspnea, no dyspnea on exertion and no pain on inspiration Cardiovascular: no chest pain, no chest pain at rest, no radiating jaw, neck or arm pain, no dyspnea on exertion and no lightheadedness Gastrointestinal: + abdominal pain; no nausea and no vomiting Genitourinary: no dysuria Musculoskeletal: + muscle weakness (LE b/l ) Physical Exam Constitutional: well developed and well nourished; no acute distress Eyes: PERRL, conjunctivae normal, anicteric sclerae ENMT: external ear and nose normal, oropharynx normal Neck: trachea midline, no thyromegaly Respiratory: normal respiratory effort, lungs clear to auscultation Cardiovascular: Rate/Rhythm: regular rate and regular rhythm Gastrointestinal (Abdomen): Inspection/Auscultation: abdomen normal to inspection (ostomy site well appearing), normal bowel sounds and + visible herniation (lateral to umbilicus on R ); abdomen not distended Percussion/Palpation: + abdomen tender (diffuse throughout, worse on RLQ, though improved), abdomen soft and + hernia (periumbilical on R ); no guarding and abdomen not rigid Musculoskeletal: Head/Neck/Chest: normocephalic and head atraumatic Psychiatric: Orientation: alert, oriented to person, oriented to place and + guarded; + not oriented to time Eye Contact: + fair eye contact Genitourinary: purewick in place external Results & Data Results & Data ([facility]) Vital Signs (Past 12 Hours) Vital Signs Temp Pulse Resp BP Pulse Ox 03/11/20 23:07 36.6 C 71 16 152/92 H 95 Resident Activity Tracking Resident Involvement: Resident Care Provided Care Provided: Adult Hospital Medicine (1) Abdominal pain Abdominal location: lower abdomen, unspecified Qualified Code(s): R10.30 - Lower abdominal pain, unspecified
[2020-03-12 07:24] LABS: Albumin Level 2.9 gm/dl (3.4-5.0); BUN Creatinine Ratio 13.5 (10-20); Calcium 8.9 mg/dl (8.5-10.1); Creatinine Clr Calc Pharmacy 47.2 ml/min; Est GFR (African American) 68.5; Est GFR (Non-African American) 59.1
[2020-03-12 07:27] LABS: Albumin Globulin Ratio 0.7 (0.9-2); Bilirubin,Total 0.4 mg/dl (0.2-1); Globulin 4.1 gm/dl (2.5-4.0)
--- NOTE | 2020-03-12 08:58 | Gastroenterology Progress Note ---
Date of Service March 12, 2020 Assessment & Plan (1) Abdominal pain: Patient reports that she is feeling significantly better this morning. States abdominal pain resolved during the night. Tolerating regular diet this morning. A/P Rectal thickening on CT -- patient asymptomatic. Afebrile today. Follow-up as outpatient to discuss flex sig of rectal stump. Please refer to supervising physician addendum for further recommendations. Admission and Anticipated Discharge Date Admission Date: March 11, 2020 Supervising Physician Co-Signing Physician Notes I have seen and examined the patient. I agree with note above by LENNIE Schaefer except as noted below. HPI Pt denies abd pain. Tolerating solid diet. PE Abdomen pos bs, soft, non tender, no guarding nor rebound, LLQ ostomy with hernia noted and RLQ hernia noted. A/P RLQ pain resolved rectal thickening on CT---recommend outpt Flex sig for this. Will sign off. Please call for further questions. Subjective Patient awake, alert, and oriented this morning sitting in bed eating breakfast. Patient states that she had complete resolution of abdominal pain during the night last night. She reports she has not had any relief of abdominal pain for over a week and is feeling relieved this morning. Denies nausea or vomiting. Denies melena or hematochezia. LLQ colostomy output normal per patient. Soft to loose stool noted in colostomy bag this morning. Stoma pink without excoriation. She would like to change the ostomy appliance and bag this morning, nursing aware. Review of Systems Review of Systems: All systems reviewed & are unremarkable except as noted in HPI & below Physical Exam Constitutional: well developed, well nourished and + obese Eyes: no conjunctival abnormality ENMT: Ears: no hearing impairment Neck: normal visual inspection Respiratory: normal respiratory effort; no respiratory distress and no labored breathing Cardiovascular: Rate/Rhythm: regular rate and regular rhythm Extremities: no edema Gastrointestinal (Abdomen): Inspection/Auscultation: abdomen normal to inspection, normal bowel sounds and + visible herniation; abdomen not distended Percussion/Palpation: abdomen soft and + tympanic to percussion; abdomen nontender, no guarding and abdomen not rigid Musculoskeletal: Extremities: no cyanosis and no clubbing Neurologic: PERRL, EOMI, accommodation nl, no face palsy, no dysarthria Psychiatric: Orientation: alert Results & Data ([facility]) Vital Signs (Past 12 Hours) Vital Signs Temp Pulse Resp BP Pulse Ox 03/12/20 07:35 36.9 C 79 18 145/85 H 95 03/11/20 23:07 36.6 C 71 16 152/92 H 95 Laboratory Results - last 24 hr 03/11/20 03/11/20 03/12/20 07:08 12:20 06:27 WBC 11.87 H RBC 3.92 L Hgb 12.2 Hct 36.9 L MCV 94.1 MCH 31.1 MCHC 33.1 RDW Std Deviation 49.5 H RDW Coeff of Roberto 14.7 H Plt Count 493 H MPV 9.3 Immature Gran % (Auto) 0.3 Neut % (Auto) 71.0 Lymph % (Auto) 18.9 [place] % (Auto) 8.4 Eos % (Auto) 1.0 Baso % (Auto) 0.4 Neut # (Auto) 8.43 H Lymph # (Auto) 2.24 [place] # (Auto) 1.00 H Eos # (Auto) 0.12 Baso # (Auto) 0.05 Immature Gran # (Auto) 0.03 H Sodium Potassium Chloride Carbon Dioxide Anion Gap BUN Creatinine Est Cr Clr Drug Dosing Est GFR ( Amer) Est GFR (Non-Af Amer) BUN/Creatinine Ratio Glucose POC Glucose 132 H Estimat Average Glucose 117 Hemoglobin A1c 5.7 H Calcium Total Bilirubin AST ALT Alkaline Phosphatase Total Protein Albumin Globulin Albumin/Globulin Ratio 03/12/20 06:27 WBC RBC Hgb Hct MCV MCH MCHC RDW Std Deviation RDW Coeff of Roberto Plt Count MPV Immature Gran % (Auto) Neut % (Auto) Lymph % (Auto) [place] % (Auto) Eos % (Auto) Baso % (Auto) Neut # (Auto) Lymph # (Auto) [place] # (Auto) Eos # (Auto) Baso # (Auto) Immature Gran # (Auto) Sodium 138 Potassium 4.0 Chloride 107 Carbon Dioxide 25 Anion Gap 7.0 BUN 12 Creatinine 0.90 Est Cr Clr Drug Dosing 47.2 Est GFR ( Amer) 68.5 Est GFR (Non-Af Amer) 59.1 BUN/Creatinine Ratio 13.5 Glucose 107 H POC Glucose Estimat Average Glucose Hemoglobin A1c Calcium 8.9 Total Bilirubin 0.4 AST 20 ALT 30 Alkaline Phosphatase 111 Total Protein 7.0 Albumin 2.9 L Globulin 4.1 H Albumin/Globulin Ratio 0.7 L (1) Abdominal pain Abdominal location: right lower quadrant Qualified Code(s): R10.31 - Right lower quadrant pain
[2020-03-12] MEDS: POLYETHYLENE (MIRALAX) 17 GM PACK PO SCH ×2 (09:16→21:07)
[2020-03-12] MEDS: LOSARTAN POTASSIUM 50 MG TAB PO SCH (09:16)
[2020-03-12] MEDS: CLOPIDOGREL BISULFATE 75 MG TAB PO SCH (09:17)
[2020-03-12] MEDS: ASPIRIN 81 MG ECTAB PO SCH (09:17)
[2020-03-12] MEDS: ATORVASTATIN 40 MG TAB PO SCH (09:17)
[2020-03-12] MEDS: ASCORBIC ACID 500 MG TAB PO SCH (09:18)
--- NOTE | 2020-03-12 12:06 | Surgery Progress Note ---
Date of Service March 12, 2020 Assessment & Plan (1) Parastomal hernia: ok from our standpoint for d/c will s/o recommend f/u with colorectal ( established with Janet) as out-pt to discuss parastomal hernia in case future issues. (2) Abdominal wall hernia: Admission and Anticipated Discharge Date Admission Date: March 11, 2020 Subjective pt feeling better. no pain. tolerated diet. Physical Exam Physical Exam: alert. nad abd: soft. nt. +ventral and parastomal hernia. both large . good stoma output. Results & Data ([facility]) Vital Signs (Past 12 Hours) Vital Signs Temp Pulse Resp BP Pulse Ox 03/12/20 07:35 36.9 C 79 18 145/85 H 95 (1) Parastomal hernia Obstruction and gangrene presence: without obstruction or gangrene Qualified Code(s): K43.5 - Parastomal hernia without obstruction or gangrene
--- NOTE | 2020-03-12 18:24 | Billing Data ---
Date of Service March 12, 2020 Coding Level of Care Code 29604 Subseq Hosp Care Lvl 3
[2020-03-12] MEDS: PANTOprazole 40 MG TAB PO SCH (21:07)
[2020-03-12] MEDS: METOPROLOL SUCC 25MG EXT REL TAB PO SCH (21:07)
[2020-03-12] MEDS: CETIRIZINE HCL 10 MG TABLET PO SCH (21:07)
[2020-03-13] MEDS: AMPICILLIN/SULBACTAM SOD 3,000 MG in 0.9 % SODIUM CHLORIDE 100 ML IV SCH (05:43)
[2020-03-13] MEDS: HEPARIN SOD 5,000 UNIT/0.5 ML VIAL SQ SCH ×3 (05:44→21:17)
[2020-03-13] MEDS: LEVOTHYROXINE SODIUM 25 MCG TABLET PO SCH (05:44)
[2020-03-13] MEDS: HYDROCODONE/ACETAMOPHEN 5/325MG TAB PO PRN (06:13)
[2020-03-13 06:25] LABS: Basophils # (auto) 0.04 K/uL (0-0.2); Basophils % (auto) 0.4 %; Eosinophils # (auto) 0.14 K/uL (0-0.5); Eosinophils % (auto) 1.3 %; Hematocrit (blood only) 34.9 % (37-47); Hemoglobin 11.8 g/dL (12.0-16.0); Immature Granulocytes # (auto) 0.04 K/uL (0.00-0.02); Immature Granulocytes % (auto) 0.4 %; Lymphocytes # (auto) 2.69 K/uL (1.2-3.4); Lymphocytes % (auto) 24.6 %; Mean Corpuscular Hemoglobin 31.4 pg (25-34); Mean Corpuscular Hgb Conc 33.8 g/dL (32-36); Mean Corpuscular Volume 92.8 fL (80-100); Mean Platelet Volume 9.4 fL (7.4-10.4); Monocytes # (auto) 0.99 K/uL (0.11-0.59); Neutrophils # (auto) 7.04 K/uL (1.4-6.5); Neutrophils % (auto) 64.3 %; Platelet Count 461 K/uL (130-400); RDW Coefficient of Variation 14.5 % (11.5-14.5); RDW Standard Deviation 49.4 fL (36.4-46.3); Red Blood Count 3.76 M/uL (4.2-5.4); White Blood Count 10.94 K/uL (4.8-10.8)
[2020-03-13 06:57] LABS: Albumin Level 2.7 gm/dl (3.4-5.0); Calcium 8.1 mg/dl (8.5-10.1); Creatinine Clr Calc Pharmacy 49.4 ml/min; Est GFR (African American) 72.4; Est GFR (Non-African American) 62.5; Potassium 3.8 mmol/L (3.5-5.1)
[2020-03-13 07:00] LABS: Albumin Globulin Ratio 0.7 (0.9-2); Bilirubin,Total 0.6 mg/dl (0.2-1); Globulin 4.1 gm/dl (2.5-4.0); Total Protein 6.8 gm/dl (6.4-8.2)
[2020-03-13] MEDS: metroNIDAZOLE 500 MG TAB PO SCH ×2 (09:27→16:29)
[2020-03-13] MEDS: ASPIRIN 81 MG ECTAB PO SCH (09:27)
[2020-03-13] MEDS: CLOPIDOGREL BISULFATE 75 MG TAB PO SCH (09:27)
[2020-03-13] MEDS: CEFDINIR 300 MG CAP PO SCH ×2 (09:27→21:17)
[2020-03-13] MEDS: LOSARTAN POTASSIUM 50 MG TAB PO SCH (09:28)
[2020-03-13] MEDS: ATORVASTATIN 40 MG TAB PO SCH (09:28)
[2020-03-13] MEDS: ASCORBIC ACID 500 MG TAB PO SCH (09:28)
[2020-03-13] MEDS: POLYETHYLENE (MIRALAX) 17 GM PACK PO SCH ×2 (09:29→21:17)
--- NOTE | 2020-03-13 16:20 | Hospitalist Progress Note ---
Date of Service March 13, 2020 Assessment & Plan (1) Abdominal pain: 85-year-old female past medical history significant for hypertension, CAD s/p stent x2 in 2018, CVA, chronic low back pain on chronic Ripon, hypothyroidism, GERD, CKD stage III, status post ileostomy admitted for recurren ce of abdominal pain of unclear source. Abdominal Pain -Multiple presentations to ED the week of 03/04/20 with 2 month history of diffuse abdominal pain -CT showing large parastomal hernia AND large R paracentral mid-abdominal hernia containing mesenteric fat and nonobstructive small and large bowel. Also noting circumferential wall thickening of the rectal stump with perirectal stranding and a few prominent perirectal lymph nodes concerning for infection/inflammation. -General Surgery Consulted -No acute surgical intervention planned at this time -In regards to hernias patient would be best served with f/u at a tertiary center such as [facility] Colorectal service if needed in future -OK to advance diet -GI Consulted -No acute indication at this time for endoscopic procedure -Do not feel that the rectal thickening on CT is related to patients current RLQ pain -Possible diversion colitis -Can be seen outpatient for discussion of flex sig of rectal stump. -Fever 38.2F noted 03/11/20, no clear source but possibly GI related -Blood cultures drawn - NGTD -Empiric Zosyn, transitioned to Unasyn. With patients frail status would want empirics for 7-10 days, will transition to Oral Cefdinir and Metronidazole on discharge (pt has allergy to Clavulanic Acid) -Will continue with Miralax BID and PRN Senna -Diet advanced yesterday, patient tolerating well Chronic Deconditioning/Polypharmacy -Discussed with patients daughter who notes she feels patient has been getting weaker and weaker the past few months noting hx of falls -In addition with polypharmacy with Ripon and Ativan use, likely adding to patients weakness and ambulatory dysfunction. -PT/OT ordered -SNF placement after stay -Plan for DC to [place] 03/14/20 -Patient medically stable for discharge to rehab. CAD/CVA -S/P stent x3 in 2018 -Continue home Metoprolol -Continue home Losartan -Continue home Aspirin -Continue home Plavix -Continue home Atorvastatin Hypothyroidism -Continue home Levothyroxine Insomnia -Continue patients home Ativan PRN for now, would STRONGLY recommend weaning off of this in outpatient setting with her primary doctor Chronic Low Back Pain -Continue home Ripon 5mg BID -Would likely benefit patient to decrease/decrease need -PT/OT as above CKD III -At baseline of ~1 GERD -Continue home Pantoprazole Dispo: Med/Surg, medically stable for DC to SNF, Plan for [place] 03/14/20 FEN: Minced and moist diet DVT: Heparin 5000 TID Code: Full, discussed with patients POA daughter Yanelis. Admission and Anticipated Discharge Date Admission Date: March 11, 2020 Supervising Physician Co-Signing Physician Notes I personally examined the patient and verified all guaman points of history and exam, discussed case, and agree with decision making with Dr Reese. pain doing better, not gone but doing better. eating better. vitals noted nad heent nc at mmm breathing unlabored no accessory muscles good effort skin no rashes no pallor or icterus abd soft nd nt, no guarding/rebound abdominal pain - constipation/hernia vs proctitis -improved dramatically, unclear if it was due to bowel throughput or antibiotics. finish course of empiric antibiotics (ok to switch to PO), continue to follow bowel output and titrate bowel regimen as necessary, outpatient flex sig. Dispoawaiting [place], according to case management it sounds like she will be able to go on March 14 (tomorrow) otherwise as above Subjective Ms. Grace doing well again today, denies pain. Tolerated her breakfast well, despite pain previously being post prandial. She didn't totally finish it but chalks that up to just feeling full rather than any sort of pain or discomfort. No other concerns. Review of Systems Review of Systems: All systems reviewed & are unremarkable except as noted in HPI & below Physical Exam Constitutional: WD/WN, vitals as above well developed and well nourished; no acute distress Eyes: PERRL, conjunctivae normal, anicteric sclerae ENMT: external ear and nose normal, oropharynx normal Neck: trachea midline, no thyromegaly Respiratory: normal respiratory effort, lungs clear to auscultation Cardiovascular: Rate/Rhythm: regular rate and regular rhythm Gastrointestinal (Abdomen): Inspection/Auscultation: abdomen normal to inspection (ostomy site well appearing), normal bowel sounds and + visible herniation (lateral to umbilicus on R ); abdomen not distended Percussion/Palpation: + abdomen tender (diffuse throughout, worse on RLQ, though improved), abdomen soft and + hernia (periumbilical on R ); no guarding and abdomen not rigid Musculoskeletal: no cyanosis or clubbing, extremities motor strength 5/5 Head/Neck/Chest: normocephalic and head atraumatic Skin: no rashes, warm and dry Psychiatric: A+Ox3, euthymic affect Orientation: alert, oriented to person, oriented to place and + guarded; + not oriented to time Eye Contact: + fair eye contact Results & Data Results & Data ([facility]) Vital Signs (Past 12 Hours) Vital Signs Temp Pulse Resp BP Pulse Ox 03/13/20 07:45 37 C 67 16 122/71 92 03/12/20 22:47 36.8 C 85 18 165/100 H 95 03/12/20 21:16 79 154/87 H Resident Activity Tracking Resident Involvement: Resident Care Provided Care Provided: Adult Hospital Medicine (1) Abdominal pain Abdominal location: lower abdomen, unspecified Qualified Code(s): R10.30 - Lower abdominal pain, unspecified
--- NOTE | 2020-03-13 18:43 | Billing Data ---
Date of Service March 13, 2020 Coding Level of Care Code 27519 Subseq Hosp Care Lvl 2
[2020-03-13] MEDS: PANTOprazole 40 MG TAB PO SCH (21:17)
[2020-03-13] MEDS: CETIRIZINE HCL 10 MG TABLET PO SCH (21:19)
[2020-03-13] MEDS: METOPROLOL SUCC 25MG EXT REL TAB PO SCH (21:19)
[2020-03-14] MEDS: metroNIDAZOLE 500 MG TAB PO SCH ×2 (01:03→07:24)
[2020-03-14] MEDS: HYDROCODONE/ACETAMOPHEN 5/325MG TAB PO PRN (01:06)
[2020-03-14 05:56] LABS: Basophils # (auto) 0.07 K/uL (0-0.2); Basophils % (auto) 0.6 %; Eosinophils % (auto) 1.6 %; Hematocrit (blood only) 34.8 % (37-47); Hemoglobin 11.8 g/dL (12.0-16.0); Immature Granulocytes # (auto) 0.05 K/uL (0.00-0.02); Immature Granulocytes % (auto) 0.4 %; Lymphocytes # (auto) 3.18 K/uL (1.2-3.4); Lymphocytes % (auto) 26.1 %; Mean Corpuscular Hemoglobin 31.6 pg (25-34); Mean Corpuscular Hgb Conc 33.9 g/dL (32-36); Mean Corpuscular Volume 93.3 fL (80-100); Mean Platelet Volume 9.3 fL (7.4-10.4); Monocytes # (auto) 1.24 K/uL (0.11-0.59); Monocytes % (auto) 10.2 %; Neutrophils # (auto) 7.46 K/uL (1.4-6.5); Neutrophils % (auto) 61.1 %; Platelet Count 454 K/uL (130-400); RDW Coefficient of Variation 14.7 % (11.5-14.5); RDW Standard Deviation 49.7 fL (36.4-46.3); Red Blood Count 3.73 M/uL (4.2-5.4)
[2020-03-14] MEDS: HEPARIN SOD 5,000 UNIT/0.5 ML VIAL SQ SCH (06:07)
[2020-03-14] MEDS: LEVOTHYROXINE SODIUM 25 MCG TABLET PO SCH (06:07)
[2020-03-14 06:27] LABS: Albumin Level 2.7 gm/dl (3.4-5.0); BUN Creatinine Ratio 17.8 (10-20); Calcium 8.2 mg/dl (8.5-10.1); Creatinine Clr Calc Pharmacy 44.2 ml/min; Est GFR (African American) 63.4; Est GFR (Non-African American) 54.7; Potassium 3.9 mmol/L (3.5-5.1)
[2020-03-14 06:29] LABS: Albumin Globulin Ratio 0.6 (0.9-2); Bilirubin,Total 0.5 mg/dl (0.2-1); Globulin 4.2 gm/dl (2.5-4.0); Total Protein 6.9 gm/dl (6.4-8.2)
[2020-03-14] MEDS: ASPIRIN 81 MG ECTAB PO SCH (07:25)
[2020-03-14] MEDS: CEFDINIR 300 MG CAP PO SCH (07:25)
[2020-03-14] MEDS: POLYETHYLENE (MIRALAX) 17 GM PACK PO SCH (07:26)
[2020-03-14] MEDS: ASCORBIC ACID 500 MG TAB PO SCH (07:26)
[2020-03-14] MEDS: CLOPIDOGREL BISULFATE 75 MG TAB PO SCH (07:26)
[2020-03-14] MEDS: LOSARTAN POTASSIUM 50 MG TAB PO SCH (07:27)
[2020-03-14] MEDS: ATORVASTATIN 40 MG TAB PO SCH (07:27)
--- NOTE | 2020-03-14 11:26 | Hospitalist Progress Note ---
Date of Service March 14, 2020 Assessment & Plan Admission and Anticipated Discharge Date Admission Date: March 11, 2020 Results & Data Results & Data ([facility]) Vital Signs (Past 12 Hours) Vital Signs Temp Pulse Resp BP Pulse Ox 03/14/20 07:30 36.7 C 76 16 179/78 H 94
--- NOTE | 2020-03-14 19:35 | Billing Data ---
Date of Service March 14, 2020 Coding Level of Care Code D/C Day Management <30 mins
--- NOTE | 2020-03-14 23:19 | Discharge Summary ---
Date of Service March 14, 2020 Admission HPI Per Admitting Provider 85-year-old female past medical history significant for hypertension, CAD, CVA, chronic low back pain on chronic [place], hypothyroidism, GERD, CKD stage III, chronic ileostomy presented to ED for diffuse but worst in right lower quadrant abdominal pain chronic and crampy in nature, without associated nausea or vomiting, fevers or chills, dizziness, chest pain, shortness of breath. Has not noted any diarrhea or bloody stool from stoma. Of note, this is the third time since 03/04/2020 that the patient has been seen in the ER for abdominal pain. ER evaluation has included CTAP which showed large parastomal hernia but otherwise no acute findings, no appendicitis noted. Lab work in ER has been largely normal with normal lipase, mildly elevated alk phos, no leukocytosis. Patient had upcoming outpatient surgical consultation for abdominal pain prior to admission today. Patient feels more comfortable after receiving fentanyl and Zofran in ER. Admission Exam Per Admitting Provider Constitutional: WD/WN, vitals as above Eyes: PERRL, conjunctivae normal, anicteric sclerae ENMT: external ear and nose normal, oropharynx normal Neck: normal visual inspection Respiratory: normal respiratory effort, lungs clear to auscultation Cardiovascular: RRR, no murmur, no edema Gastrointestinal (Abdomen): Hyperactive bowel sounds, abdomen mildly diffusely tender without with pain to palpation seemingly worse in RLQ. Abdomen is soft, nondistended. Musculoskeletal: no cyanosis or clubbing, extremities motor strength 5/5 Skin: no rashes, warm and dry Neurologic: AAOx3, normal speech. No tremor. Psychiatric: A+Ox3, euthymic affect Principal Diagnosis Abdominal pain Discharge Exam Constitutional WD/WN, vitals as above well developed and well nourished; no acute distress Eyes PERRL, conjunctivae normal, anicteric sclerae ENMT external ear and nose normal, oropharynx normal Neck trachea midline, no thyromegaly Respiratory normal respiratory effort, lungs clear to auscultation Cardiovascular Rate/Rhythm: regular rate and regular rhythm Gastrointestinal (Abdomen) Inspection/Auscultation: abdomen normal to inspection (ostomy site well appearing), normal bowel sounds and + visible herniation (lateral to umbilicus on R ); abdomen not distended Percussion/Palpation: abdomen soft and + hernia (periumbilical on R ); abdomen nontender, no guarding and abdomen not rigid Musculoskeletal no cyanosis or clubbing, extremities motor strength 5/5 Head/Neck/Chest: normocephalic and head atraumatic Skin no rashes, warm and dry Psychiatric A+Ox3, euthymic affect Orientation: alert, oriented to person, oriented to place and + guarded; + not oriented to time Eye Contact: + fair eye contact Discharge Data Allergies Allergy/AdvReac Type Severity Reaction Status Date / Time vancomycin Allergy Intermediate rash Verified 03/10/20 20:31 diphenhydramine Allergy Mild Redness Verified 03/10/20 20:31 clavulanic acid Allergy Unknown Unknown Verified 03/10/20 20:31 codeine Allergy Unknown Unknown Verified 03/10/20 20:31 Consultations 03/10/20 22:07 ED Decision to Admit Stat 03/11/20 08:34 Consult Gastroenterology Routine Ordered Studies 03/10/20 20:38 CT abd pelvis wo con Urgent Hospital Course (1) Abdominal pain: 85-year-old female past medical history significant for hypertension, CAD s/p stent x2 in 2018, CVA, chronic low back pain on chronic [place], hypothyroidism, GERD, CKD stage III, status post ileostomy admitted for recurrence of abdominal pain of unclear source. Abdominal Pain -Multiple presentations to ED the week of 03/04/20 with 2 month history of diffuse abdominal pain -CT showing large parastomal hernia AND large R paracentral mid-abdominal hernia containing mesenteric fat and nonobstructive small and large bowel. Also noting circumferential wall thickening of the rectal stump with perirectal stranding and a few prominent perirectal lymph nodes concerning for infection/inflammation. -General Surgery Consulted -No acute surgical intervention planned at this time -In regards to hernias patient would be best served with f/u at a tertiary center such as [facility] Colorectal service if needed in future -OK to advance diet -GI Consulted -No acute indication at this time for endoscopic procedure -Do not feel that the rectal thickening on CT is related to patients current RLQ pain -Possible diversion colitis -Can be seen outpatient for discussion of flex sig of rectal stump. -Fever 38.2F noted 03/11/20, no clear source but possibly GI related -Blood cultures drawn - NGTD -Empiric Zosyn, transitioned to Unasyn. With patients frail status would want empirics for 7-10 days, will transition to Oral Cefdinir and Metronidazole on discharge (pt has allergy to Clavulanic Acid) -Will continue with Miralax BID and PRN Senna -Patient tolerating diet well, minced and moist Chronic Deconditioning/Polypharmacy -Discussed with patients daughter who notes she feels patient has been getting weaker and weaker the past few months noting hx of falls -In addition with polypharmacy with [place] and Ativan use, likely adding to patients weakness and ambulatory dysfunction. -PT/OT ordered -SNF placement after stay - Would strongly recommend discontinuing ativan and norco -Plan for DC to [facility] 03/14/20 -Patient medically stable for discharge to rehab. CAD/CVA -S/P stent x3 in 2018 -Continue home Metoprolol -Continue home Losartan -Continue home Aspirin -Continue home Plavix -Continue home Atorvastatin Hypothyroidism -Continue home Levothyroxine Insomnia -Continue patients home Ativan PRN for now, would STRONGLY recommend weaning off of this in outpatient setting with her primary doctor Chronic Low Back Pain -Continue home [place] 5mg BID -Would likely benefit patient to try other pain management modalities -PT/OT as above CKD III -At baseline of ~1 GERD -Continue home Pantoprazole Dispo: Med/Surg, medically stable for DC to SNF, Plan for [facility] 03/14/20 FEN: Minced and moist diet Code: Full Total Time Total Time Spent Total Time Spent (In Minutes): <30 Discharge Plan Discharge Items Patient Disposition: Transfer Assisted Fac Reason For Visit: AB PAIN, CONSTIPATION Discharge Diagnosis: Proctitis, constipation Activity: Per Instructions section Non-emergency contact: Primary Care Provider Call non-emergency contact if: you have any medication questions Follow-up/Referrals: Shilpa Parker MD [Primary Care Provider] - Diet: Regular Diet Texture: Easy to Chew Addtl Attending Provider Instructions: 85-year-old female past medical history significant for hypertension, CAD s/p stent x2 in 2018, CVA, chronic low back pain on chronic [place], hypothyroidism, GERD, CKD stage III, status post ileostomy admitted for recurrence of abdominal pain of unclear source. Abdominal Pain -Multiple presentations to ED the week of 03/04/20 with 2 month history of diffuse abdominal pain -CT showing large parastomal hernia AND large R paracentral mid-abdominal hernia containing mesenteric fat and nonobstructive small and large bowel. Also noting circumferential wall thickening of the rectal stump with perirectal stranding and a few prominent perirectal lymph nodes concerning for infection/inflammation. -General Surgery Consulted -No acute surgical intervention planned at this time -In regards to hernias patient would be best served with f/u at a tertiary center such as [facility] Colorectal service if needed in future -OK to advance diet -GI Consulted -No acute indication at this time for endoscopic procedure -Do not feel that the rectal thickening on CT is related to patients current RLQ pain -Possible diversion colitis -Can be seen outpatient for discussion of flex sig of rectal stump. -Fever 38.2F noted 03/11/20, no clear source but possibly GI related -Blood cultures drawn - NGTD -Empiric Zosyn, transitioned to Unasyn. With patients frail status would want empirics for 7-10 days, will transition to Oral Cefdinir and Metronidazole on discharge (pt has allergy to Clavulanic Acid) -Will continue with Miralax BID and PRN Senna -Patient tolerating diet well, minced and moist Chronic Deconditioning/Polypharmacy -Discussed with patients daughter who notes she feels patient has been getting weaker and weaker the past few months noting hx of falls -In addition with polypharmacy with [place] and Ativan use, likely adding to patients weakness and ambulatory dysfunction. -PT/OT ordered -SNF placement after stay - Would strongly recommend discontinuing ativan and norco -Plan for DC to [facility] 03/14/20 -Patient medically stable for discharge to rehab. CAD/CVA -S/P stent x3 in 2018 -Continue home Metoprolol -Continue home Losartan -Continue home Aspirin -Continue home Plavix -Continue home Atorvastatin Hypothyroidism -Continue home Levothyroxine Insomnia -Continue patients home Ativan PRN for now, would STRONGLY recommend weaning off of this in outpatient setting with her primary doctor Chronic Low Back Pain -Continue home [place] 5mg BID -Would likely benefit patient to try other pain management modalities -PT/OT as above CKD III -At baseline of ~1 GERD -Continue home Pantoprazole Dispo: Med/Surg, medically stable for DC to SNF, Plan for [facility] 03/14/20 FEN: Minced and moist diet Code: Full Pending Studies at Discharge: No Stand-Alone Forms: [facility] Skilled Items Patient informed of condition?: Yes DNR: No Discharge Level of Care: Skilled Communicable Disease: No Discharge Prognosis: Improving Lines: None Urinary Catheter: No Medications and DC Order Prescriptions: New metronidazole 500 mg Tablet 500 mg PO Q8H 7 Days Qty: 21 RF: 0 cefdinir 300 mg Capsule 300 mg PO BID 7 Days Qty: 14 RF: 0 Continued calcium carbonate [Calcium 500] 500 mg calcium (1,250 mg) Tablet 500 mg PO QAM Qty: 0 RF: 0 cetirizine 10 mg tablet 10 mg PO HS Qty: 0 RF: 0 lorazepam [Ativan] 0.5 mg tablet See Rx Instructions PO HS PRN (Reason: anxiety) Qty: 30 RF: 0 levothyroxine 25 mcg tablet 25 mcg PO QAM Qty: 30 RF: 2 (DME) New Image Skin Barrier-Flange 2 3/4 " misc See Dose Instructions .ROUTE .MEDSUPPLY Qty: 30 RF: 5 hydrocodone-acetaminophen 5-325 mg tablet 1 tab PO BID PRN (Reason: Pain) Qty: 100 RF: 0 solifenacin [Vesicare] 10 mg tablet 10 mg PO DAILY Qty: 90 RF: 3 (DME) New Image Drainable Lock N Rol 2 3/4 " misc See Dose Instructions .ROUTE .MEDSUPPLY Qty: 30 RF: 5 losartan 50 mg tablet 50 mg PO QAM RF: 0 atorvastatin 40 mg tablet 40 mg PO QAM Qty: 90 RF: 3 clopidogrel 75 mg tablet 75 mg PO QAM Qty: 90 RF: 3 metoprolol succinate 25 mg tablet extended release 24 hr 25 mg PO HS Qty: 90 RF: 3 aspirin [Aspirin Low Dose] 81 mg Tablet,Delayed Release (Dr/Ec) 81 mg PO QAM RF: 0 nitroglycerin 0.4 mg tablet, sublingual 0.4 mg sublingual UD PRN (Reason: Chest Pain) RF: 0 ascorbic acid (vitamin C) [Vitamin C] 500 mg Tablet 500 mg PO QAM RF: 0 pantoprazole 40 mg tablet,delayed release (DR/EC) 40 mg PO HS RF: 0 cholecalciferol (vitamin D3) [Vitamin D3] 50 mcg (2,000 unit) Capsule 50 mcg PO QAM RF: 0 tramadol [Ultram] 50 mg tablet 50 mg PO Q6H PRN (Reason: pain) Qty: 20 RF: 0 Centrum Silver 0.4-300-250 mg-mcg-mcg Tablet 1 tab PO QAM RF: 0 Changed polyethylene glycol 3350 [Gavilax] 17 gram/dose powder 17 g PO BID Qty: 0 RF: 0 Discharge Orders: Discharge Order (Routine); Ordered 03/14/20 Ordered By: Nathan Frost Admission Data Admit Date/Time: 03/11/20 13:49 Attending Provider: [place] Admit Provider: Virgie Moffett Primary Care Provider: Shilpa Parker Other Providers: Canelo Gibbs ; Amy Flowers ; Fermin Magallon ; Abundio Byrd ; Spencer Harrison ; Jaquan Marroquin ; [place] [place] ; [place] Other Interventions: Discharge Summary Assessment (RN) Last Done: 03/14/20 11:40 Supervising Physician Co-Signing Physician Notes I personally examined the patient and verified all guaman points of history and exam, discussed case, and agree with decision making with Dr Frost. doing better overall, pain improving. for snf today vitals noted nad heent nc at mmm breathing unlabored no accessory muscles good effort skin no rashes no pallor or icterus abd soft nd very mildly tender, no guarding/rebound abdominal pain - constipation/hernia vs proctitis -improved dramatically, unclear if it was due to bowel throughput or antibiotics. finish course of empiric antibiotics, continue to follow bowel output and titrate bowel regimen as necessary, outpatient flex sig. stable for snf Dispostable for snf otherwise as above Resident Activity Tracking Resident Involvement: Resident Care Provided Care Provided: Adult Hospital Medicine
== END 2020-03-14 13:24 | DRG 392 ==
LOC: 3N 19:50 → ED 19:50 → SUATTDRO 23:20 → 3N 03-11 00:05

== ENCOUNTER 2020-11-23 10:10 | Inpatient (IN) ==
--- NOTE | 2020-11-23 10:09 | Emergency Department Note ---
Impression & Plan Stroke-like symptoms, History of cardioembolic cerebrovascular accident (CVA) ED Provider Note NAME: FLO DYE AGE: 85 SEX: F : 1935 ARRIVES VIA: Ambulance INFORMANT: Patient, ED PROVIDER(S): Tucker Ga MD Chief Complaint: Weakness HPI: Patient does present from home due to concern for right-sided weakness. Reported last known well around 8 AM as the patient was eating breakfast got nauseous try to get up and walk and the patient was dragging her right lower extremity. Patient does have remote history of TIA. Patient has any fevers chills head neck or back pain. The patient did have difficulty with moving the right lower extremity and EMS reported some scant weakness of the right upper extremity. Patient is vaccinated for Covid and denies any alcohol or tobacco use. No recent falls or trauma. Patient does take aspirin and Plavix. The patient does have a history of TIA the patient's medical history does show prior history of CVA. Patient denies any left-sided changes. The patient denies any sensory deficits. BSG prior to arrival was in the 140s. ROS: See HPI for pertinent positives and negatives. A total of 10 systems were reviewed and otherwise negative. Past medical history: See below Surgical history: See below Social history: See below Physical Exam: GENERAL: NAD, wearing a mask, non-toxic. EYE EXAM: Normal conjunctiva. PERRL, no anisocoria and EOM's grossly intact w/o pain. NECK: Supple, no nuchal rigidity, no adenopathy, non-tender. No signs of meningismus. LUNGS: Clear to auscultation. Normal chest wall mechanics. HEART: NSR, no MRG. ABDOMEN: Abdomen soft, non-tender, normo-active bowel sounds, no masses, no rebound or guarding. BACK: No CVA TTP. SKIN: No rashes and no bruising. UPPER EXTREMITIES: Upper extremities are grossly normal. LOWER EXTREMITIES: Grossly normal, no edema. NEURO EXAM: A&O x3, cranial nerves II-XII grossly intact, normal speech, moves all 4 extremities with weakness of right lower extremity Differential diagnoses: Infection, dehydration, metabolic abnormality, hypo/hyperglycemia, electrolyte disturbance, anemia, hypoxia, cardiac sources, intracerebral event, toxicologic, neurologic, as well as other pathologies. Course: Patient was seen and evaluated the bedside. Full history physical exam was performed. EKG interpreted by me Normal sinus rhythm, rate of 70, normal intervals, normal axis, no ST changes. No significant change from comparison EKG March 10, 2020. Imaging Studies: See Below Cardiac monitoring: An order was placed for continuous cardiac monitoring. The monitor shows a rate of 85 with sinus rhythm. MDM: Patient was seen due to concern for right lower extremity weakness. I did init iate a code stroke protocol. I did speak with telestroke [facility]. It was further discovered the patient does have a prior history of both hemorrhagic and nonhemorrhagic CVAs. Blood pressure medication was held for permissive hypertension. I did speak with the on-call hospitalist LENNIE Cordon and the patient was admitted to Dr. Fine. I did speak with the on-call telestroke neurologist Dr. Mcclure about the patient's high-grade stenosis. He recommended medical management at this time. Past Med/Surg History Medical History Abdominal pain Breast cancer CAD (coronary artery disease) NSTEMI in 08/2017; 2 JOHN to LAD and 1 to LCx Carotid artery stenosis Cataract Cerebrovascular disease CKD (chronic kidney disease) stage 3, GFR 30-59 ml/min Diverticulitis Diverticulosis of colon History of cerebrovascular accident History of open sigmoidectomy Hypercholesterolemia Hypertension Hypertensive crisis Hypothyroidism Non-hemorrhagic cerebrovascular accident (CVA) Pancreatitis Perforated bowel Pseudoaneurysm Sciatic leg pain Secondary thrombocytosis Spherocytosis, hereditary Travelers' diarrhea Urinary symptom or sign Surgical History History of arthroscopy of right knee History of breast surgery History of section History of section History of cholecystectomy History of colectomy History of colonoscopy History of colposcopy History of dilation and curettage History of knee replacement History of lumpectomy History of splenectomy History of splenectomy History of tonsillectomy and adenoidectomy History of tubal ligation Hx of cholecystectomy S/P angioplasty with stent Status post breast lumpectomy Family History Unknown Heart disease Diabetes Breast cancer Uncle Colorectal cancer Mother , age 54 of complications post splenectomy No problems noted. Father , age 89 of heart issues Heart disease Myocardial infarction Brother Prostate cancer Myocardial infarction Denies family history of Ovarian cancer Social History Smoking Status: Never smoker Second Hand Exposure: Yes; Hx Alcohol Use: No Hx Substance Use: No Preferred Language: Yi Communication Ability: Effective Hearing Ability: Normal Size Mixer Required: No Beliefs That Will Affect Care: None marital status: Current Living Situation: [facility] Current Living Situation Comment: states her and her went to retirement after broke his leg current occupational status: retired 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 How many Children do You have: 3 Feels Safe at Home: Yes Dental Care, Regularly: Yes Seatbelt Use: always Sunscreen Use: Yes Assistive Devices: Walker Allergies Allergies Allergy/AdvReac Type Severity Reaction Status Date / Time vancomycin Allergy Intermediate rash Verified 11/23/20 11:34 diphenhydramine Allergy Mild Redness Verified 11/23/20 11:34 clavulanic acid Allergy Unknown Unknown Verified 11/23/20 11:34 codeine Allergy Unknown Unknown Verified 11/23/20 11:34 Home Meds Home Medications Medication Instructions Recorded Confirmed aspirin 81 mg tablet,delayed 81 mg PO QAM 11/22/17 11/23/20 release (Aspirin Low Dose) [id number] acid 0.4 1 tab PO QAM 05/30/18 11/23/20 mg-lycopene 300 mcg-lutein 250 mcg tablet (Centrum Silver) nitroglycerin 0.4 mg sublingual 0.4 mg SUBLINGUAL UD PRN 07/21/18 11/23/20 tablet cetirizine 10 mg tablet 10 mg PO HS #0 tab 09/16/19 11/23/20 acetaminophen 500 mg tablet 500 mg PO Q4H PRN tab 04/24/20 11/23/20 cholecalciferol (vitamin D3) 25 1,000 unit PO DAILY cap 04/24/20 11/23/20 mcg (1,000 unit) capsule Previous Rx's Medication Instructions Recorded lorazepam 0.5 mg tablet (Ativan) See Rx Instructions PO HS PRN #30 12/17/19 tab escitalopram oxalate 5 mg tablet 5 mg PO DAILY #90 tab 06/03/20 (Lexapro) levothyroxine 25 mcg tablet 25 mcg PO QAM #90 tab 07/03/20 metoprolol succinate 25 mg 25 mg PO HS #90 tab 08/04/20 tablet,extended release 24 hr atorvastatin 40 mg tablet 40 mg PO QAM #90 tab 08/13/20 losartan 50 mg tablet 50 mg PO QAM #90 tab 08/13/20 polyethylene glycol 3350 17 17 g PO DAILY #510 g 08/18/20 gram/dose oral powder (Gavilax) hydrocodone 5 mg-acetaminophen 325 1 tab PO BID PRN #100 tab 09/23/20 mg tablet mirabegron 50 mg tablet,extended 50 mg PO DAILY #30 tab 10/01/20 release 24 hr (Myrbetriq) oxybutynin chloride 10 mg 10 mg PO DAILY #30 tab 10/01/20 tablet,extended release 24 hr Results & Data (ED) Vital Signs Vital Signs - 24 hr 11/23/20 10:20 11/23/20 10:22 11/23/20 10:30 Temperature 36.4 C L Temperature Source Oral Pulse Rate 71 73 71 Pulse Rate from SpO2 Sensor Pulse Rhythm Regular Pulse Strength Normal Respiratory Rate 18 18 14 Respiratory Effort / Characteristics Non-Labored Spontaneous Respiratory Depth Normal Respiratory Pattern Regular Blood Pressure 192/83 H 192/83 H Blood Pressure Mean 119 119 Blood Pressure Position Lying Pulse Oximetry 97 Oxygen Delivery Method Room Air Sepsis Recent Fever Within 48 Hours No Sepsis New/Unexplained Change in Mental Status No Sepsis Action Taken by Nursing No Action Required 11/23/20 11:00 Temperature Temperature Source Pulse Rate 68 Pulse Rate from SpO2 Sensor 68 Pulse Rhythm Pulse Strength Respiratory Rate 19 Respiratory Effort / Characteristics Respiratory Depth Respiratory Pattern Blood Pressure Blood Pressure Mean Blood Pressure Position Pulse Oximetry 97 Oxygen Delivery Method Sepsis Recent Fever Within 48 Hours Sepsis New/Unexplained Change in Mental Status Sepsis Action Taken by [facility] Medications Current Medication List: was personally reviewed by me Laboratory Data Attestation: I reviewed the patient's lab results. Result diagrams: 11/23/20 10:37 11/23/20 10:37 Lab Results 11/23/20 11/23/20 11/23/20 Range/Units 10:24 10:37 10:37 WBC 9.93 (4.8-10.8) K/uL RBC 3.79 L (4.2-5.4) M/uL Hgb 11.8 L (12.0-16.0) g/dL Hct 36.8 L (37-47) % MCV 97.1 (80-100) fL MCH 31.1 (25-34) pg MCHC 32.1 (32-36) g/dL RDW Std Deviation 51.7 H (36.4-46.3) fL RDW Coeff of Roberto 14.6 H (11.5-14.5) % Plt Count 433 H (130-400) K/uL MPV 9.5 (7.4-10.4) fL Immature Gran % (Auto) 0.5 % Neut % (Auto) 64.1 % Lymph % (Auto) 22.2 % Sol[place] % (Auto) 9.2 % Eos % (Auto) 3.4 % Baso % (Auto) 0.6 % Neut # (Auto) 6.37 (1.4-6.5) K/uL Lymph # (Auto) 2.20 (1.2-3.4) K/uL Sol[place] # (Auto) 0.91 H (0.11-0.59) K/uL Eos # (Auto) 0.34 (0-0.5) K/uL Baso # (Auto) 0.06 (0-0.2) K/uL Immature Gran # (Auto) 0.05 H (0.00-0.02) K/uL PT (9.0-12.0) Seconds INR (0.9-1.1) APTT (21.0-31.0) Seconds PTT Ratio Sodium (136-145) mmol/L Potassium (3.5-5.1) mmol/L Chloride (98-107) mmol/L Carbon Dioxide (21-32) mmol/L Anion Gap (3-11) BUN (7-18) mg/dl Creatinine (0.6-1.2) mg/dl Est Cr Clr Drug Dosing ml/min Est GFR ( Amer) ml/min Est GFR (Non-Af Amer) ml/min BUN/Creatinine Ratio (10-20) Glucose (70-99) mg/dl POC Glucose 124 H (70-99) mg/dl Calcium (8.5-10.1) mg/dl Magnesium (1.8-2.4) mg/dl Total Bilirubin (0.2-1) mg/dl AST (15-37) U/L ALT (12-78) U/L Alkaline Phosphatase (45-117) U/L Troponin I (0-0.045) ng/ml Total Protein (6.4-8.2) gm/dl Albumin (3.4-5.0) gm/dl Globulin (2.5-4.0) gm/dl Albumin/Globulin Ratio (0.9-2) COVID-19 Eval Order SARS-CoV-2 (PCR) (Negative) Blood Type A Positive Antibody Screen NEGATIVE 11/23/20 11/23/20 11/23/20 Range/Units 10:37 10:37 10:43 WBC (4.8-10.8) K/uL RBC (4.2-5.4) M/uL Hgb (12.0-16.0) g/dL Hct (37-47) % MCV (80-100) fL MCH (25-34) pg MCHC (32-36) g/dL RDW Std Deviation (36.4-46.3) fL RDW Coeff of Roberto (11.5-14.5) % Plt Count (130-400) K/uL MPV (7.4-10.4) fL Immature Gran % (Auto) % Neut % (Auto) % Lymph % (Auto) % Sol[place] % (Auto) % Eos % (Auto) % Baso % (Auto) % Neut # (Auto) (1.4-6.5) K/uL Lymph # (Auto) (1.2-3.4) K/uL Solano # (Auto) (0.11-0.59) K/uL Eos # (Auto) (0-0.5) K/uL Baso # (Auto) (0-0.2) K/uL Immature Gran # (Auto) (0.00-0.02) K/uL PT 10.1 (9.0-12.0) Seconds INR 1.0 (0.9-1.1) APTT 21.9 (21.0-31.0) Seconds PTT Ratio 0.8 Sodium 135 L (136-145) mmol/L Potassium 4.3 (3.5-5.1) mmol/L Chloride 104 (98-107) mmol/L Carbon Dioxide 30 (21-32) mmol/L Anion Gap 1.0 L (3-11) BUN 25 H (7-18) mg/dl Creatinine 1.10 (0.6-1.2) mg/dl Est Cr Clr Drug Dosing 35.6 ml/min Est GFR ( Amer) 53.8 ml/min Est GFR (Non-Af Amer) 46.4 ml/min BUN/Creatinine Ratio 22.9 H (10-20) Glucose 119 H (70-99) mg/dl POC Glucose (70-99) mg/dl Calcium 8.4 L (8.5-10.1) mg/dl Magnesium 2.1 (1.8-2.4) mg/dl Total Bilirubin 0.3 (0.2-1) mg/dl AST 23 (15-37) U/L ALT 19 (12-78) U/L Alkaline Phosphatase 77 (45-117) U/L Troponin I < 0.015 (0-0.045) ng/ml Total Protein 6.3 L (6.4-8.2) gm/dl Albumin 2.4 L (3.4-5.0) gm/dl Globulin 3.9 (2.5-4.0) gm/dl Albumin/Globulin Ratio 0.6 L (0.9-2) COVID-19 Eval Order Covid19 at [facility] SARS-CoV-2 (PCR) (Negative) Blood Type Antibody Screen 11/23/20 Range/Units 10:43 WBC (4.8-10.8) K/uL RBC (4.2-5.4) M/uL Hgb (12.0-16.0) g/dL Hct (37-47) % MCV (80-100) fL MCH (25-34) pg MCHC (32-36) g/dL RDW Std Deviation (36.4-46.3) fL RDW Coeff of Roberto (11.5-14.5) % Plt Count (130-400) K/uL MPV (7.4-10.4) fL Immature Gran % (Auto) % Neut % (Auto) % Lymph % (Auto) % [place] % (Auto) % Eos % (Auto) % Baso % (Auto) % Neut # (Auto) (1.4-6.5) K/uL Lymph # (Auto) (1.2-3.4) K/uL [place] # (Auto) (0.11-0.59) K/uL Eos # (Auto) (0-0.5) K/uL Baso # (Auto) (0-0.2) K/uL Immature Gran # (Auto) (0.00-0.02) K/uL PT (9.0-12.0) Seconds INR (0.9-1.1) APTT (21.0-31.0) Seconds PTT Ratio Sodium (136-145) mmol/L Potassium (3.5-5.1) mmol/L Chloride (98-107) mmol/L Carbon Dioxide (21-32) mmol/L Anion Gap (3-11) BUN (7-18) mg/dl Creatinine (0.6-1.2) mg/dl Est Cr Clr Drug Dosing ml/min Est GFR ( Amer) ml/min Est GFR (Non-Af Amer) ml/min BUN/Creatinine Ratio (10-20) Glucose (70-99) mg/dl POC Glucose (70-99) mg/dl Calcium (8.5-10.1) mg/dl Magnesium (1.8-2.4) mg/dl Total Bilirubin (0.2-1) mg/dl AST (15-37) U/L ALT (12-78) U/L Alkaline Phosphatase (45-117) U/L Troponin I (0-0.045) ng/ml Total Protein (6.4-8.2) gm/dl Albumin (3.4-5.0) gm/dl Globulin (2.5-4.0) gm/dl Albumin/Globulin Ratio (0.9-2) COVID-19 Eval Order SARS-CoV-2 (PCR) NEGATIVE (Negative) Blood Type Antibody Screen Administered Medications Discontinued Medications Ioversol (Optiray 320 125ml) 118 ml IV ONCE ONE Stop: 11/23/20 10:22 Last Admin: 11/23/20 10: Dose: 118 ml Documented by: [id number] Imaging Data Radiologist's Impression: Head CT 11/23/20 10:[address] DOSE: HISTORY: Stroke Like Symptoms TECHNIQUE: Multiaxial CT images of the head were performed without the use of intravenous contrast. Automated exposure control was utilized for this study. A dose lowering technique was utilized adhering to the principles of ALARA. Comparison: Head CT 01/13/2019 Findings: Expansile polypoid soft tissue density within the sphenoid sinus remains unchanged. The remaining paranasal sinuses and mastoid air cells are clear. The calvarium and skull base are intact. There is no mass, hematoma, midline shift, acute infarct. White matter hypodensity is nonspecific but suggestive of microvascular ischemic change. The ventricles and sulci demonstrate mild age-related involutional changes. 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 Impression: No significant change compared to the prior study. No acute intracranial abnormality. ACT 112: Negative or not required by law. Electronically signed by: Kavin Holliday M.D. 11/23/2020 10:30 AM Head CTA 11/23/20 10:07 CT ANGIOGRAM OF THE BRAIN ; CT ANGIOGRAM OF THE NECK CLINICAL HISTORY: Strokelike symptoms. COMPARISON STUDY: Unenhanced CT of the brain performed the same day 11/23/2020. CT angiogram of the head and neck dated 01/13/2019. TECHNIQUE: Following the IV administration of 118 of Optiray 320, CT angiogram of the head and neck was performed from the aortic arch to the vertex. Images are reviewed in the axial, sagittal, and coronal planes. 3-D MIPS images are created and assessed. IV contrast was administered without complication. All measurements were calculated based on NASCET criteria. A dose lowering te chnique was utilized adhering to the principles of ALARA. CT DOSE: 1156.47 mGy.cm FINDINGS: Brain parenchyma: There is age-related involutional change noting moderate subcortical and periventricular microangiopathic disease. There is no evidence of hemorrhage, mass effect, acute territorial ischemia noting angiographic phase technique. There is no evidence of enhancing mass lesion on the angiogram phase images. The ventricles, sulci, and cisterns are prominent secondary to involutional change. Andino-white matter differentiation is preserved. No extra- axial fluid collection is seen. Thoracic aorta: There is atherosclerotic calcification of the thoracic aorta. Visualized portions of the thoracic aorta are normal in caliber. The aortic arch demonstrates standard 3-vessel anatomy. Right carotid arterial system: The right common carotid artery is widely patent, as are the right internal and external carotid arteries. Advanced calcified plaque is seen in the carotid bulb. Left carotid arterial system: The left common carotid artery is widely patent, as are the left internal and external carotid arteries. Advanced calcified plaque in the carotid bulb causes less than 50% luminal narrowing at the origin of the left internal carotid artery. Vertebral arteries: The vertebral arteries are widely patent bilaterally and codominant in the neck. Subclavian arteries: Widely patent bilaterally. Intracranial vasculature: There is atherosclerotic calcification of the cavernous carotid arteries. There is focal high-grade stenosis of the left A1 segment seen on axial image #100. The internal carotid arteries are patent at the skull base, as are the anterior and middle cerebral arteries bilaterally. Atherosclerotic irregularity seen throughout both middle cerebral arteries. There is focal high-grade stenosis of the proximal and mid portions of the right M1 segment. This is best seen on axial image #97 and is similar to previous. The vertebrobasilar system and posterior cerebral arteries are patent. The basilar artery is diminutive, and there are large bilateral posterior communicating arteries. There is high-grade stenosis of the left posterior communicating artery seen on axial image #88. There is origin of the left posterior cerebral artery.. The intracranial right vertebral artery is dominant. There is no aneurysm or focal vessel cutoff is identified throughout the intracranial circulation. Jugular veins: Patent bilaterally. Dural sinuses: Patent. Lung apices: Partially visualized upper lobe lung parenchyma appears clear. Soft tissues: The visualized pharyngeal soft tissues are normal in appearance noting angiographic phase technique. The oropharyngeal airway appears widely patent. 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 The salivary glands are normal in appearance. No cervical lymphadenopathy is seen. Skeletal structures: The skeletal structures are osteopenic. The calvarium appears intact. The cervical spine is maintained noting multilevel spondylosis. No lytic or blastic lesion is seen. Orbits: The bony orbits are intact. Orbital contents are normal as visualized noting bilateral ocular lens implants. Sinuses and mastoids: There is trace mucosal thickening within the maxillary antrum. There is subtotal opacification of the sphenoid sinuses. The remaining Paranasal sinuses are clear. The mastoid air cells are well pneumatized. IMPRESSION: 1. There is no evidence of hemorrhage, mass effect, or acute territorial ischemia noting angiographic phase technique. 2. There is atherosclerotic plaque in the carotid bulbs with no evidence of hemodynamically significant stenosis involving the cervical carotid arteries. 3. There are foci of high-grade stenosis involving the M1 segment of the right middle cerebral artery, the A1 segment of the left anterior cerebral artery, and the left posterior indicating artery. This has not significantly changed from 01/13/2019. 4. No aneurysm or focal vessel cut off is identified throughout the intracranial circulation. ACT 112: Negative or not required by law. Electronically signed by: Valdemar Guido M.D. 11/23/2020 10:39 AM Neck CTA 11/23/20 10:07 CT ANGIOGRAM OF THE BRAIN ; CT ANGIOGRAM OF THE NECK CLINICAL HISTORY: Strokelike symptoms. COMPARISON STUDY: Unenhanced CT of the brain performed the same day 11/23/2020. CT angiogram of the head and neck dated 01/13/2019. TECHNIQUE: Following the IV administration of 118 of Optiray 320, CT angiogram of the head and neck was performed from the aortic arch to the vertex. Images are reviewed in the axial, sagittal, and coronal planes. 3-D MIPS images are created and assessed. IV contrast was administered without complication. All measurements were calculated based on NASCET criteria. A dose lowering technique was utilized adhering to the principles of ALARA. CT DOSE: 1156.47 mGy.cm FINDINGS: Brain parenchyma: There is age-related involutional change noting moderate subcortical and periventricular microangiopathic disease. There is no evidence of hemorrhage, mass effect, acute territorial ischemia noting angiographic phase technique. There is no evidence of enhancing mass lesion on the angiogram phase images. The ventricles, sulci, and cisterns are prominent secondary to involutional change. Andino-white matter differentiation is preserved. No extra-a xial fluid collection is seen. Thoracic aorta: There is atherosclerotic calcification of the thoracic aorta. Visualized portions of the thoracic aorta are normal in caliber. The aortic arch demonstrates standard 3-vessel anatomy. Right carotid arterial system: The right common carotid artery is widely patent, as are the right internal and external carotid arteries. Advanced calcified plaque is seen in the carotid bulb. Left carotid arterial system: The left common carotid artery is widely patent, as are the left internal and external carotid arteries. Advanced calcified plaque in the carotid bulb causes less than 50% luminal narrowing at the origin of the left internal carotid artery. Vertebral arteries: The vertebral arteries are widely patent bilaterally and codominant in the neck. Subclavian arteries: Widely patent bilaterally. Intracranial vasculature: There is atherosclerotic calcification of the cavernous carotid arteries. There is focal high-grade stenosis of the left A1 segment seen on axial image #100. The internal carotid arteries are patent at the skull base, as are the anterior and middle cerebral arteries bilaterally. Atherosclerotic irregularity seen throughout both middle cerebral arteries. There is focal high-grade stenosis of the proximal and mid portions of the right M1 segment. This is best seen on axial image #97 and is similar to previous. The vertebrobasilar system and posterior cerebral arteries are patent. The basilar artery is diminutive, and there are large bilateral posterior communicating ar teries. There is high-grade stenosis of the left posterior communicating artery seen on axial image #88. There is origin of the left posterior cerebral artery.. The intracranial right vertebral artery is dominant. There is no aneurysm or focal vessel cutoff is identified throughout the intracranial circulation. Jugular veins: Patent bilaterally. Dural sinuses: Patent. Lung apices: Partially visualized upper lobe lung parenchyma appears clear. Soft tissues: The visualized pharyngeal soft tissues are normal in appearance noting angiographic phase technique. The oropharyngeal airway appears widely patent. 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 The salivary glands are normal in appearance. No cervical lymphadenopathy is seen. Skeletal structures: The skeletal structures are osteopenic. The calvarium appears intact. The cervical spine is maintained noting multilevel spondylosis. No lytic or blastic lesion is seen. Orbits: The bony orbits are intact. Orbital contents are normal as visualized noting bilateral ocular lens implants. Sinuses and mastoids: There is trace mucosal thickening within the maxillary antrum. There is subtotal opacification of the sphenoid sinuses. The remaining Paranasal sinuses are clear. The mastoid air cells are well pneumatized. IMPRESSION: 1. There is no evidence of hemorrhage, mass effect, or acute territorial ischemia noting angiographic phase technique. 2. There is atherosclerotic plaque in the carotid bulbs with no evidence of hemodynamically significant stenosis involving the cervical carotid arteries. 3. There are foci of high-grade stenosis involving the M1 segment of the right middle cerebral artery, the A1 segment of the left anterior cerebral artery, and the left posterior indicating artery. This has not significantly changed from 01/13/2019. 4. No aneurysm or focal vessel cut off is identified throughout the intracranial circulation. ACT 112: Negative or not required by law. Electronically signed by: Valdemar Guido M.D. 11/23/2020 10:39 AM Discharge Plan Visit Data Chief Complaint: Stroke Alert ED Provider: Tucker Ga Discharge Problem: Stroke-like symptoms, History of cardioembolic cerebrovascular accident (CVA) Patient Disposition: Admitted As Inpatient Discharge Instructions Interventions: ED Discharge Assessment Last Done: 11/23/20 13:51
[2020-11-23] MEDS ORDERED: OPTIRAY 320 125ml IV ONE (10:21)
[2020-11-23] MEDS ORDERED: LABETALOL HCL IV 5 MG/ML 20ML IV PRN ×2 (10:28→14:44)
[2020-11-23] MEDS ORDERED: LABETALOL HCL IV 5 MG/ML 20ML IV STA (10:28)
--- NOTE | 2020-11-23 10:32 | CT Scan Report ---
HEAD CT NONCONTRAST CT DOSE: HISTORY: Stroke Like Symptoms TECHNIQUE: Multiaxial CT images of the head were performed without the use of intravenous contrast. A utomated exposure control was utilized for this study. A dose lowering technique was utilized adheri ng to the principles of ALARA. Comparison: Head CT 01/13/2019 Findings: Expansile polypoid soft tissue density within the sphenoid sinus remains unchanged. The rem aining paranasal sinuses and mastoid air cells are clear. The calvarium and skull base are intact. Th ere is no mass, hematoma, midline shift, acute infarct. White matter hypodensity is nonspecific but s uggestive of microvascular ischemic change. The ventricles and sulci demonstrate mild age-related inv olutional changes. 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 Impression: No significant change compared to the prior study. No acute intracranial abnormality. ACT 112: Negative or not required by law. Electronically signed by: Kavin Holliday M.D. 11/23/2020 10:30 AM
--- NOTE | 2020-11-23 10:40 | CT Scan Report ---
CT ANGIOGRAM OF THE BRAIN ; CT ANGIOGRAM OF THE NECK CLINICAL HISTORY: Strokelike symptoms. COMPARISON STUDY: Unenhanced CT of the brain performed the same day 11/23/2020. CT angiogram of the head and neck dated 01/13/2019. TECHNIQUE: Following the IV administration of 118 of Optiray 320, CT angiogram of the head and neck w as performed from the aortic arch to the vertex. Images are reviewed in the axial, sagittal, and brady nal planes. 3-D MIPS images are created and assessed. IV contrast was administered without complicati on. All measurements were calculated based on NASCET criteria. A dose lowering technique was utilize d adhering to the principles of ALARA. CT DOSE: 1156.47 mGy.cm FINDINGS: Brain parenchyma: There is age-related involutional change noting moderate subcortical and periventri cular microangiopathic disease. There is no evidence of hemorrhage, mass effect, acute territorial is chemia noting angiographic phase technique. There is no evidence of enhancing mass lesion on the celsa ogram phase images. The ventricles, sulci, and cisterns are prominent secondary to involutional miranda e. Andino-white matter differentiation is preserved. No extra-axial fluid collection is seen. Thoracic aorta: There is atherosclerotic calcification of the thoracic aorta. Visualized portions of the thoracic aorta are normal in caliber. The aortic arch demonstrates standard 3-vessel anatomy. Right carotid arterial system: The right common carotid artery is widely patent, as are the right int ernal and external carotid arteries. Advanced calcified plaque is seen in the carotid bulb. Left carotid arterial system: The left common carotid artery is widely patent, as are the left advertising internship al and external carotid arteries. Advanced calcified plaque in the carotid bulb causes less than 50% luminal narrowing at the origin of the left internal carotid artery. Vertebral arteries: The vertebral arteries are widely patent bilaterally and codominant in the neck. Subclavian arteries: Widely patent bilaterally. Intracranial vasculature: There is atherosclerotic calcification of the cavernous carotid arteries. T here is focal high-grade stenosis of the left A1 segment seen on axial image #100. The internal carot id arteries are patent at the skull base, as are the anterior and middle cerebral arteries bilaterall y. Atherosclerotic irregularity seen throughout both middle cerebral arteries. There is focal high-gr juan stenosis of the proximal and mid portions of the right M1 segment. This is best seen on axial janet ge #97 and is similar to previous. The vertebrobasilar system and posterior cerebral arteries are pat ent. The basilar artery is diminutive, and there are large bilateral posterior communicating arteries . There is high-grade stenosis of the left posterior communicating artery seen on axial image #88. Th ere is origin of the left posterior cerebral artery.. The intracranial right vertebral artery i s dominant. There is no aneurysm or focal vessel cutoff is identified throughout the intracranial cir culation. Jugular veins: Patent bilaterally. Dural sinuses: Patent. Lung apices: Partially visualized upper lobe lung parenchyma appears clear. Soft tissues: The visualized pharyngeal soft tissues are normal in appearance noting angiographic pha se technique. The oropharyngeal airway appears widely patent. 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 The salivary glands are normal in appearance. No cervical lymphadenopathy is seen. Skeletal structures: The skeletal structures are osteopenic. The calvarium appears intact. The cervic al spine is maintained noting multilevel spondylosis. No lytic or blastic lesion is seen. Orbits: The bony orbits are intact. Orbital contents are normal as visualized noting bilateral ocular lens implants. Sinuses and mastoids: There is trace mucosal thickening within the maxillary antrum. There is subtota l opacification of the sphenoid sinuses. The remaining Paranasal sinuses are clear. The mastoid air c ells are well pneumatized. IMPRESSION: 1. There is no evidence of hemorrhage, mass effect, or acute territorial ischemia noting angiographic phase technique. 2. There is atherosclerotic plaque in the carotid bulbs with no evidence of hemodynamically significa nt stenosis involving the cervical carotid arteries. 3. 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 This has not significantly changed from 01/13/2019. 4. No aneurysm or focal vessel cut off is identified throughout the intracranial circulation. ACT 112: Negative or not required by law. Electronically signed by: Valdemar Guido M.D. 11/23/2020 10:39 AM
[2020-11-23 10:49] LABS: Basophils # (auto) 0.06 K/uL (0-0.2); Basophils % (auto) 0.6 %; Eosinophils # (auto) 0.34 K/uL (0-0.5); Eosinophils % (auto) 3.4 %; Hematocrit (blood only) 36.8 % (37-47); Hemoglobin 11.8 g/dL (12.0-16.0); Immature Granulocytes # (auto) 0.05 K/uL (0.00-0.02); Immature Granulocytes % (auto) 0.5 %; Lymphocytes % (auto) 22.2 %; Mean Corpuscular Hemoglobin 31.1 pg (25-34); Mean Corpuscular Hgb Conc 32.1 g/dL (32-36); Mean Corpuscular Volume 97.1 fL (80-100); Mean Platelet Volume 9.5 fL (7.4-10.4); Monocytes # (auto) 0.91 K/uL (0.11-0.59); Monocytes % (auto) 9.2 %; Neutrophils # (auto) 6.37 K/uL (1.4-6.5); Neutrophils % (auto) 64.1 %; Platelet Count 433 K/uL (130-400); RDW Coefficient of Variation 14.6 % (11.5-14.5); RDW Standard Deviation 51.7 fL (36.4-46.3); Red Blood Count 3.79 M/uL (4.2-5.4); White Blood Count 9.93 K/uL (4.8-10.8)
[2020-11-23 11:10] LABS: Alanine Aminotransferase 19 U/L (12-78); Albumin Level 2.4 gm/dl (3.4-5.0); Aspartate Aminotransferase 23 U/L (15-37); BUN Creatinine Ratio 22.9 (10-20); Blood Urea Nitrogen 25 mg/dl (7-18); Calcium 8.4 mg/dl (8.5-10.1); Carbon Dioxide 30 mmol/L (21-32); Chloride 104 mmol/L (98-107); Creatinine Clr Calc Pharmacy 35.6 ml/min; Est GFR (African American) 53.8 ml/min; Est GFR (Non-African American) 46.4 ml/min; Glucose 119 mg/dl (70-99); Magnesium 2.1 mg/dl (1.8-2.4); Partial Thromboplastin Ratio 0.8; Partial Thromboplastin Time 21.9 Seconds (21.0-31.0); Potassium 4.3 mmol/L (3.5-5.1); Prothrombin Time 10.1 Seconds (9.0-12.0)
[2020-11-23 11:14] LABS: Albumin Globulin Ratio 0.6 (0.9-2); Alkaline Phosphatase 77 U/L (45-117); Bilirubin,Total 0.3 mg/dl (0.2-1); Globulin 3.9 gm/dl (2.5-4.0); Total Protein 6.3 gm/dl (6.4-8.2); Troponin I < 0.015 ng/ml (0-0.045)
--- NOTE | 2020-11-23 12:03 | History & Physical Report ---
Date of Service November 23, 2020 Assessment & Plan (1) Episode of generalized weakness: Plan: Arrived as Stroke Alert symptoms resolved initial acute CVA workeup negative- pending MRI R/O CVA - Allow permissive HTN tonight - Continue medications tomorrow - If MRI positive for new ischemia- consult neurology - Symptoms resolved with large volume ostomy output- ? 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 - [place] ASA/Plavix - Continue atorvastatin 40 mg daily - permissive HTN overnight (3) Hemiparesis 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: Plan: As above- walks with walker - PT/OT evaluation (4) CAD (coronary artery disease): Plan: CAD with 3 JOHN - Continue statin, asa, plavix - Continue Metoprolol - Continue Losartan in AM - NTG PRN - NO symptoms or ECG changes on arrival - ECHO December 26- EF 55-60%, mild AR, (5) Hypertension: Plan: As above (6) Hypercholesterolemia: Plan: As above (7) Impaired fasting glucose: Plan: Without diagnosis of DM- not on therapy - HGBA1C in morning- risk reduction strategy if indicated (8) History of cardioembolic cerebrovascular accident (CVA): Plan: As above hemorrhagic and ischemic- on appropriate medical risk reduction medications (9) Urinary incontinence: Plan: Chronic- place purewick - continue Myrbetriq and oxybutynin - bladder scan as needed for PVR (10) Colostomy in place: Plan: As per HPI - patient with known parastomal hernia and paracentral hernia- admission in for abdominal pain and was treated for colitis - GI evaluated at that time and if becomes an acute issue recommended transfer to tertiary center - Did not follow up for outpatient GI scope of her ostomy (11) Abdominal pain: Plan: As above- follow with exams and ostomy output - KUB x1 now - continue with miralax prn - follow ostomy output (12) Hypothyroidism: Plan: Continue with synthroid (13) Low back pain: Plan: Chronic with residual lower leg radiculopathy/pain - continue prn Tylenol and P/OT consult - Continue [place] PRN - follows with pain management History of Present Illness Chief Complaint: weakness Primary Care Provider: Shilpa Parker MD 85 YOF with past medical history of: CAD x3 stents(NSTEMI, LAD, DAVID x2 LCx JOHN 2018), HTN, HLD, [id number], with residual right sided weakness, CKD IIIa, bowel perforation s/p colostomy, parastomal hernia, spherocytosis s/p splenectomy, urinary incontinence and frequency. Patient was brought in to the EMD today as a stroke alert. The patient symptoms were generalized weakness, but increased on her right side, dizziness without syncope. This started right after breakfast around ~800 am where she was eating breakfast. After getting up for breakfast she had the onset of dizziness and weakness. She feels that her right leg was weaker than normal, but her right arm was OK She denied any visual changes or change in the ability to speak or understand speech. The symptoms lasted until she got to the EMD after she had a large output of watery stool from her ostomy. The patient had no other associated symptoms and relived as previously noted. In the EMD she had a CT/CTA of the head and neck, routine labs, ECG performed. Her CTA of the head and neck was interpreted as not notable for any acute changes and consistent stenosis of her M1 and A1 segments when compared to 2019. Patient was deemed not a tPA candidate for previous hemorrhagic CVA in 2018. Patient is waiting for MRI at this time. Her NIHSS is 0 at this time without any other new acute findings. She has some abdominal tenderness in her upper quadrants and noted a looser stool than normal from her ostomy last evening as well. Will obtain KUB. Patient will be observed on medical telemetry to monitor for resolution of neurological symptoms, complete MRI of the brain, PT/OT evaluation and follow her abdominal pain and ostomy output. Patient has had her COVID vaccine and her COVID test is: NEGATIVE on admisson. Allergies Allergy/AdvReac Type Severity Reaction Status Date / Time vancomycin Allergy Intermediate rash Verified 11/23/20 11:34 diphenhydramine Allergy Mild Redness Verified 11/23/20 11:34 clavulanic acid Allergy Unknown Unknown Verified 11/23/20 11:34 codeine Allergy Unknown Unknown Verified 11/23/20 11:34 Home Medications Medication Instructions Recorded Confirmed Type aspirin 81 mg tablet,delayed 81 mg PO QAM 11/22/17 11/23/20 History release (Aspirin Low Dose) ybzdxync-ycs-jftnj acid 0.4 1 tab PO QAM 05/30/18 11/23/20 History mg-lycopene 300 mcg-lutein 250 mcg tablet (Centrum Silver) nitroglycerin 0.4 mg sublingual 0.4 mg SUBLINGUAL UD PRN 07/21/18 11/23/20 History tablet cetirizine 10 mg tablet 10 mg PO HS #0 tab 09/16/19 11/23/20 History lorazepam 0.5 mg tablet (Ativan) See Rx Instructions PO HS PRN #30 12/17/19 11/23/20 Rx tab acetaminophen 500 mg tablet 500 mg PO Q4H PRN tab 04/24/20 11/23/20 History cholecalciferol (vitamin D3) 25 1,000 unit PO DAILY cap 04/24/20 11/23/20 History mcg (1,000 unit) capsule escitalopram oxalate 5 mg tablet 5 mg PO DAILY #90 tab 06/03/20 11/23/20 Rx (Lexapro) levothyroxine 25 mcg tablet 25 mcg PO QAM #90 tab 07/03/20 11/23/20 Rx metoprolol succinate 25 mg 25 mg PO HS #90 tab 08/04/20 11/23/20 Rx tablet,extended release 24 hr atorvastatin 40 mg tablet 40 mg PO QAM #90 tab 08/13/20 11/23/20 Rx losartan 50 mg tablet 50 mg PO QAM #90 tab 08/13/20 11/23/20 Rx polyethylene glycol 3350 17 17 g PO DAILY #510 g 08/18/20 11/23/20 Rx gram/dose oral powder (Gavilax) hydrocodone 5 mg-acetaminophen 325 1 tab PO BID PRN #100 tab 09/23/20 11/23/20 Rx mg tablet mirabegron 50 mg tablet,extended 50 mg PO DAILY #30 tab 10/01/20 11/23/20 Rx release 24 hr (Myrbetriq) oxybutynin chloride 10 mg 10 mg PO DAILY #30 tab 10/01/20 11/23/20 Rx tablet,extended release 24 hr Past Med/Surg History Medical History Abdominal pain Breast cancer CAD (coronary artery disease) NSTEMI in 08/2017; 2 JOHN to LAD and 1 to LCx Carotid artery stenosis Cataract Cerebrovascular disease CKD (chronic kidney disease) stage 3, GFR 30-59 ml/min Diverticulitis Diverticulosis of colon History of cerebrovascular accident History of open sigmoidectomy Hypercholesterolemia Hypertension Hypertensive crisis Hypothyroidism Non-hemorrhagic cerebrovascular accident (CVA) Pancreatitis Perforated bowel Pseudoaneurysm Sciatic leg pain Secondary thrombocytosis Spherocytosis, hereditary Travelers' diarrhea Urinary symptom or sign Surgical History History of arthroscopy of right knee History of breast surgery History of section History of section History of cholecystectomy History of colectomy History of colonoscopy History of colposcopy History of dilation and curettage History of knee replacement History of lumpectomy History of splenectomy History of splenectomy History of tonsillectomy and adenoidectomy History of tubal ligation Hx of cholecystectomy S/P angioplasty with stent Status post breast lumpectomy Family History Unknown Heart disease Diabetes Breast cancer Uncle Colorectal cancer Mother , age 54 of complications post splenectomy No problems noted. 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 How many Children do You have: 3 Feels Safe at Home: Yes Dental Care, Regularly: Yes Seatbelt Use: always Sunscreen Use: Yes Assistive Devices: Walker Review of Systems Review of Systems: REVIEW OF SYSTEMS: Constitutional: No fever, sweats or chills Eyes: No diplopia, no worsening or blurred vision ENT: normal hearing, no trouble swallowing Respiratory: No cough, sputum, dyspnea at rest or on exertion Cardiovascular: No chest pain, tightness or palpitations Abdomen: (+) abdominal pain, increase ostomy output, No nausea, vomiting, constipation Musculoskeletal: No joint pain, calf pain, swelling Neurologic: (+) residual right sided weakness felt worse this morning, NO numbness/tingling, or balance problems Psychiatric: No anxiety or depression Skin: No rash or itch Physical Exam Physical Exam: PHYSICAL EXAM: General: awake, alert, no apparent distress Head: Normocephalic, atraumatic ENT: PERRL, EOMI, no pharyngeal exudate, mucous membranes moist Neuro: AAO x 3, speech clear and appropriate, strength intact bilaterally 5/5 left side and 4/5 right side, sensation intact and equal all extremities and dermatomes, no pronator drift, no ataxia, no aphasia, no peripheral/central visionary changes- NIHSS 0 Chest: equal rise and fall of the chest, no accessory muscle use, no heaves or thrills, Clear to auscultation, on room air, Cardiac: Regular rate and rhythm, telemetry reviewed- NSR, skin warm dry, cap refill <3 seconds, peripheral pulses +2 no JVD, no murmur, no edema GI: NABS x 4 quadrants, soft, tender to palpation bilateral upper quads, no rebound, guarding or tenderness : Spontaneously voiding- frequency and incontinence, no pain, no CVA tenderness, Extremities: Normal inspection, no peripheral edema or erythema, calfs nontender to palpation Psych: Normal mood and affect Skin: no rash or erythema Results & Data Results & Data ([facility]) Vital Signs (Past 12 Hours) Vital Signs Temp Pulse Resp BP Pulse Ox 11/23/20 10:20 36.4 C L 71 18 192/83 H 97 Laboratory Results Abnormal lab results 11/23/20 11/23/20 11/23/20 Range/Units 10:24 10:37 10:37 RBC 3.79 L (4.2-5.4) M/uL Hgb 11.8 L (12.0-16.0) g/dL Hct 36.8 L (37-47) % RDW Std Deviation 51.7 H (36.4-46.3) fL RDW Coeff of Roberto 14.6 H (11.5-14.5) % Plt Count 433 H (130-400) K/uL [place] # (Auto) 0.91 H (0.11-0.59) K/uL Immature Gran # (Auto) 0.05 H (0.00-0.02) K/uL Sodium 132 L (136-145) mmol/L Anion Gap -2.0 L (3-11) BUN 25 H (7-18) mg/dl BUN/Creatinine Ratio 22.9 H (10-20) Glucose 119 H (70-99) mg/dl POC Glucose 124 H (70-99) mg/dl Calcium 8.4 L (8.5-10.1) mg/dl Total Protein 6.3 L (6.4-8.2) gm/dl Albumin 2.4 L (3.4-5.0) gm/dl Albumin/Globulin Ratio 0.6 L (0.9-2) Diagnostic Findings Head CT 11/23/20 10:[address] DOSE: HISTORY: Stroke Like Symptoms TECHNIQUE: Multiaxial CT images of the head were performed without the use of intravenous contrast. Automated exposure control was utilized for this study. A dose lowering technique was utilized adhering to the principles of ALARA. Comparison: Head CT 01/13/2019 Findings: Expansile polypoid soft tissue density within the sphenoid sinus remains unchanged. The remaining paranasal sinuses and mastoid air cells are clear. The calvarium and skull base are intact. There is no mass, hematoma, midline shift, acute infarct. White matter hypodensity is nonspecific but suggestive of microvascular ischemic change. The ventricles and sulci demonstrate mild age-related involutional changes. 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 Impression: No significant change compared to the prior study. No acute intracranial abnormality. ACT 112: Negative or not required by law. Electronically signed by: Kavin Holliday M.D. 11/23/2020 10:30 AM Head CTA 11/23/20 10:07 CT ANGIOGRAM OF THE BRAIN ; CT ANGIOGRAM OF THE NECK CLINICAL HISTORY: Strokelike symptoms. COMPARISON STUDY: Unenhanced CT of the brain performed the same day 11/23/2020. CT angiogram of the head and neck dated 01/13/2019. TECHNIQUE: Following the IV administration of 118 of Optiray 320, CT angiogram of the head and neck was performed from the aortic arch to the vertex. Images are reviewed in the axial, sagittal, and coronal planes. 3-D MIPS images are created and assessed. IV contrast was administered without complication. All measurements were calculated based on NASCET criteria. A dose lowering technique was utilized adhering to the principles of ALARA. CT DOSE: 1156.47 mGy.cm FINDINGS: Brain parenchyma: There is age-related involutional change noting moderate subcortical and periventricular microangiopathic disease. There is no evidence of hemorrhage, mass effect, acute territorial ischemia noting angiographic phase technique. There is no evidence of enhancing mass lesion on the angiogram phase images. The ventricles, sulci, and cisterns are prominent secondary to involutional change. Andino-white matter differentiation is preserved. No extra- axial fluid collection is seen. Thoracic aorta: There is atherosclerotic calcification of the thoracic aorta. Visualized portions of the thoracic aorta are normal in caliber. The aortic arch demonstrates standard 3-vessel anatomy. Right carotid arterial system: The right common carotid artery is widely patent, as are the right internal and external carotid arteries. Advanced calcified plaque is seen in the carotid bulb. Left carotid arterial system: The left common carotid artery is widely patent, as are the left internal and external carotid arteries. Advanced calcified plaque in the carotid bulb causes less than 50% luminal narrowing at the origin of the left internal carotid artery. Vertebral arteries: The vertebral arteries are widely patent bilaterally and codominant in the neck. Subclavian arteries: Widely patent bilaterally. Intracranial vasculature: There is atherosclerotic calcification of the cavernous carotid arteries. There is focal high-grade stenosis of the left A1 segment seen on axial image #100. The internal carotid arteries are patent at the skull base, as are the anterior and middle cerebral arteries bilaterally. Atherosclerotic irregularity seen throughout both middle cerebral arteries. There is focal high-grade stenosis of the proximal and mid portions of the right M1 segment. This is best seen on axial image #97 and is similar to previous. The vertebrobasilar system and posterior cerebral arteries are patent. The basilar artery is diminutive, and there are large bilateral posterior communicating arteries. There is high-grade stenosis of the left posterior communicating artery seen on axial image #88. There is origin of the left posterior cerebral artery.. The intracranial right vertebral artery is dominant. There is no aneurysm or focal vessel cutoff is identified throughout the intracranial circulation. Jugular veins: Patent bilaterally. Dural sinuses: Patent. Lung apices: Partially visualized upper lobe lung parenchyma appears clear. Soft tissues: The visualized pharyngeal soft tissues are normal in appearance noting angiographic phase technique. The oropharyngeal airway appears widely patent. 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 The salivary glands are normal in appearance. No cervical lymphadenopathy is seen. Skeletal structures: The skeletal structures are osteopenic. The calvarium appears intact. The cervical spine is maintained noting multilevel spondylosis. No lytic or blastic lesion is seen. Orbits: The bony orbits are intact. Orbital contents are normal as visualized noting bilateral ocular lens implants. Sinuses and mastoids: There is trace mucosal thickening within the maxillary antrum. There is subtotal opacification of the sphenoid sinuses. The remaining Paranasal sinuses are clear. The mastoid air cells are well pneumatized. IMPRESSION: 1. There is no evidence of hemorrhage, mass effect, or acute territorial ischemia noting angiographic phase technique. 2. There is atherosclerotic plaque in the carotid bulbs with no evidence of hemodynamically significant stenosis involving the cervical carotid arteries. 3. There are foci of high-grade stenosis involving the M1 segment of the right middle cerebral artery, the A1 segment of the left anterior cerebral artery, and the left posterior indicating artery. This has not significantly changed from 01/13/2019. 4. No aneurysm or focal vessel cut off is identified throughout the intracranial circulation. ACT 112: Negative or not required by law. Electronically signed by: Valdemar Guido M.D. 11/23/2020 10:39 AM Neck CTA 11/23/20 10:07 CT ANGIOGRAM OF THE BRAIN ; CT ANGIOGRAM OF THE NECK CLINICAL HISTORY: Strokelike symptoms. COMPARISON STUDY: Unenhanced CT of the brain performed the same day 11/23/2020. CT angiogram of the head and neck dated 01/13/2019. TECHNIQUE: Following the IV administration of 118 of Optiray 320, CT angiogram of the head and neck was performed from the aortic arch to the vertex. Images are reviewed in the axial, sagittal, and coronal planes. 3-D MIPS images are created and assessed. IV contrast was administered without complication. All measurements were calculated based on NASCET criteria. A dose lowering technique was utilized adhering to the principles of ALARA. CT DOSE: 1156.47 mGy.cm FINDINGS: Brain parenchyma: There is age-related involutional change noting moderate subcortical and periventricular microangiopathic disease. There is no evidence of hemorrhage, mass effect, acute territorial ischemia noting angiographic phase technique. There is no evidence of enhancing mass lesion on the angiogram phase images. The ventricles, sulci, and cisterns are prominent secondary to involutional change. Andino-white matter differentiation is preserved. No extra- axial fluid collection is seen. Thoracic aorta: There is atherosclerotic calcification of the thoracic aorta. Visualized portions of the thoracic aorta are normal in caliber. The aortic arch demonstrates standard 3-vessel anatomy. Right carotid arterial system: The right common carotid artery is widely patent, as are the right internal and external carotid arteries. Advanced calcified plaque is seen in the carotid bulb. Left carotid arterial system: The left common carotid artery is widely patent, as are the left internal and external carotid arteries. Advanced calcified plaque in the carotid bulb causes less than 50% luminal narrowing at the origin of the left internal carotid artery. Vertebral arteries: The vertebral arteries are widely patent bilaterally and codominant in the neck. Subclavian arteries: Widely patent bilaterally. Intracranial vasculature: There is atherosclerotic calcification of the cavernous carotid arteries. There is focal high-grade stenosis of the left A1 segment seen on axial image #100. The internal carotid arteries are patent at the skull base, as are the anterior and middle cerebral arteries bilaterally. Atherosclerotic irregularity seen throughout both middle cerebral arteries. There is focal high-grade stenosis of the proximal and mid portions of the right M1 segment. This is best seen on axial image #97 and is similar to previous. The vertebrobasilar system and posterior cerebral arteries are patent. The basilar artery is diminutive, and there are large bilateral posterior communicating arteries. There is high-grade stenosis of the left posterior communicating artery seen on axial image #88. There is origin of the left posterior cerebral artery.. The intracranial right vertebral artery is dominant. There is no aneurysm or focal vessel cutoff is identified throughout the intracranial circulation. Jugular veins: Patent bilaterally. Dural sinuses: Patent. Lung apices: Partially visualized upper lobe lung parenchyma appears clear. Soft tissues: The visualized pharyngeal soft tissues are normal in appearance noting angiographic phase technique. The oropharyngeal airway appears widely patent. 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 The salivary glands are normal in appearance. No cervical lymphadenopathy is seen. Skeletal structures: The skeletal structures are osteopenic. The calvarium a ppears intact. The cervical spine is maintained noting multilevel spondylosis. No lytic or blastic lesion is seen. Orbits: The bony orbits are intact. Orbital contents are normal as visualized noting bilateral ocular lens implants. Sinuses and mastoids: There is trace mucosal thickening within the maxillary antrum. There is subtotal opacification of the sphenoid sinuses. The remaining Paranasal sinuses are clear. The mastoid air cells are well pneumatized. IMPRESSION: 1. There is no evidence of hemorrhage, mass effect, or acute territorial ischemia noting angiographic phase technique. 2. There is atherosclerotic plaque in the carotid bulbs with no evidence of hemodynamically significant stenosis involving the cervical carotid arteries. 3. There are foci of high-grade stenosis involving the M1 segment of the right middle cerebral artery, the A1 segment of the left anterior cerebral artery, and the left posterior indicating artery. This has not significantly changed from . 4. No aneurysm or focal vessel cut off is identified throughout the intracranial circulation. ACT 112: Negative or not required by law. Electronically signed by: Valdemar Guido M.D. 11/23/2020 10:39 AM Medications Administered Discontinued Medications Ioversol (Optiray 320 125ml) 118 ml IV ONCE ONE Stop: 11/23/20 10:22 Last Admin: 11/23/20 10: Dose: 118 ml Documented by: [id number] Home Medications aspirin 81 mg tablet,delayed release (Aspirin Low Dose) 81 mg PO QAM 11/22/17 [History Confirmed 10/16/20] pojkavqz-gcy-rnjay acid 0.4 mg-lycopene 300 mcg-lutein 250 mcg tablet (Centrum Silver) 1 tab PO QAM 05/30/18 [History Confirmed 10/16/20] nitroglycerin 0.4 mg sublingual tablet 0.4 mg SUBLINGUAL UD PRN 07/21/18 [History Confirmed 10/16/20] cetirizine 10 mg tablet 10 mg PO HS #0 tab 09/16/19 [History Confirmed 10/16/20] lorazepam 0.5 mg tablet (Ativan) See Rx Instructions PO HS PRN #30 tab 12/17/19 [Rx Confirmed 10/16/20] acetaminophen 500 mg tablet 500 mg PO Q4H PRN tab 04/24/20 [History Confirmed 10/16/20] cholecalciferol (vitamin D3) 25 mcg (1,000 unit) capsule 1,000 unit PO DAILY cap 04/24/20 [History Confirmed 10/16/20] escitalopram oxalate 5 mg tablet (Lexapro) 5 mg PO DAILY #90 tab 06/03/20 [Rx Confirmed 10/16/20] levothyroxine 25 mcg tablet 25 mcg PO QAM #90 tab 07/03/20 [Rx Confirmed 10/16/20] metoprolol succinate 25 mg tablet,extended release 24 hr 25 mg PO HS #90 tab 08/04/20 [Rx Confirmed 10/16/20] atorvastatin 40 mg tablet 40 mg PO QAM #90 tab 08/13/20 [Rx Confirmed 10/16/20] losartan 50 mg tablet 50 mg PO QAM #90 tab 08/13/20 [Rx Confirmed 10/16/20] polyethylene glycol 3350 17 gram/dose oral powder (Gavilax) 17 g PO DAILY #510 g 08/18/20 [Rx Confirmed 10/16/20] hydrocodone 5 mg-acetaminophen 325 mg tablet 1 tab PO BID PRN #100 tab 09/23/20 [Rx Confirmed 10/16/20] mirabegron 50 mg tablet,extended release 24 hr (Myrbetriq) 50 mg PO DAILY #30 t ab 10/01/20 [Rx Confirmed 10/16/20] oxybutynin chloride 10 mg tablet,extended release 24 hr 10 mg PO DAILY #30 tab 10/01/20 [Rx Confirmed 10/16/20] ECG Additional Comments: Normal sinus rhythm Normal ECG When compared with ECG of 10-MAR-2020 20:00, No significant change was found Code Status & VTE Plan Code Status CODE: FULL VTE: SCDs, Heparin 5000 units subq q12 VTE Prophylaxis Plan VTE Prophylaxis will be ordered: Yes Supervising Physician Co-Signing Physician Notes 85 yo female is seen and examined at bedside. During face to face encounter with patient, obtained a history and physical examination. Discussed case with OBDULIO Verdin and answered all of the patient's questions. I reviewed above note and agree with it. Patient admitted with generalized weakness. Patient will be monitored and will obtain a MRI of the brain to rule out stroke. PG Care Time/CCT Total # of Minutes Spent Total Time Spent with Patient: Total time spent is greater than 50% in coordination of care (as documented) at patient's floor/unit and/or counseling patient: Coding Level of Care Code INT OBSERVATION CARE 70M LVL 3 Diagnoses Episode of generalized weakness R53.1 CVA (cerebral vascular accident) I63.9 Hemiparesis 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 I69.351 CAD (coronary artery disease) I25.10 Associated angina: without angina Coronary Disease-Associated Artery/Lesion type: unspecified vessel or lesion type [place] vs. transplanted heart: [place] heart Hypertension I10 Hypertension type: essential hypertension Hypercholesterolemia E78.00 Impaired fasting glucose R73.01 History of cardioembolic cerebrovascular accident (CVA) Z86.73 Urinary incontinence R32 Col[address] Z93.3 Abdominal pain R10.30 Abdominal location: lower abdomen, unspecified Hypothyroidism E03.9 Hypothyroidism type: unspecified Low back pain M54.5; G89.29 Back pain laterality: unspecified Chronicity: chronic Sciatica presence: unspecified whether sciatica present (1) Low back pain Back pain laterality: unspecified Chronicity: chronic Sciatica presence: unspecified whether sciatica present Qualified Code(s): M54.5 - Low back pain; G89.29 - Other chronic pain (2) CAD (coronary artery disease) Associated angina: without angina Coronary Disease-Associated Artery/Lesion type: unspecified vessel or lesion type [place] vs. transplanted heart: [place] heart Qualified Code(s): I25.10 - Atherosclerotic heart disease of [place] coronary artery without angina pectoris (3) Hypothyroidism Hypothyroidism type: unspecified Qualified Code(s): E03.9 - Hypothyroidism, unspecified (4) Abdominal pain Abdominal location: lower abdomen, unspecified Qualified Code(s): R10.30 - Lower abdominal pain, unspecified (5) Hypertension Hypertension type: essential hypertension Qualified Code(s): I10 - Essential (primary) hypertension
[2020-11-23 12:21] LABS: Sodium 135 mmol/L (136-145)
--- NOTE | 2020-11-23 14:09 | XRay Report ---
KUB HISTORY: Generalized abdominal pain. evaluate for obstructive process COMPARISON: KUB 08/15/2017. Abdomen and pelvis CT 03/04/2020. FINDINGS: The bowel gas pattern is unremarkable. There are no dilated loops of small bowel to suggest an obstruction. There is contrast within the renal collecting systems, ureters, bladder. This could obscure urinary calculi. No hydronephrosis. There appears be a left lower quadrant colostomy. No pne umoperitoneum or pneumatosis. IMPRESSION: 1. No evidence of bowel obstruction. 2. Contrast within the urinary system from the prior CT examination. No hydronephrosis. ACT 112: Negative or not required by law. Electronically signed by: Kavin Holliday M.D. 11/23/2020 2:08 PM
[2020-11-23] MEDS ORDERED: LORazepam 0.5 MG TAB PO PRN (14:44)
[2020-11-23] MEDS ORDERED: PHARMACIST DISCHARGE MED REC CONSULT PRN (14:44)
[2020-11-23] MEDS ORDERED: ONDANSETRON INJ 2 MG/ML 2 ML VIAL IV PRN (14:44)
[2020-11-23] MEDS ORDERED: POLYETHYLENE (MIRALAX) 17 GM PACK PO PRN (14:44)
[2020-11-23] MEDS ORDERED: NITROGLYCERIN SL 0.4 MG/TAB TAB SL PRN (14:44)
[2020-11-23] MEDS ORDERED: ACETAMINOPHEN 500 MG TAB PO PRN (15:00)
--- NOTE | 2020-11-23 16:54 | Magnetic Resonance Report ---
MR brain wo con CLINICAL HISTORY: RLE weakness confusion, trouble walking. History of prior stroke. No recent head tr auma. TECHNIQUE: Multiplanar and multisequence MR images of the brain were obtained without intravenous con trast. Comparison: Comparison is made to MRI brain 01/13/2019 FINDINGS: No abnormal restricted diffusion is identified. Foci of T2 and FLAIR hyperintensity are noted in the paraventricular areas consistent with chronic small vessel ischemic disease. There is no evidence of acute intraparenchymal hemorrhage. No extra axial fluid collections are seen. There are no masses, ma ss effect, or midline shift. The ventricular system is normal in appearance. The corpus callosum, pit uitary gland, and cerebellar tonsils appear grossly unremarkable. Flow voids of the major intracranial arterial vessels are identified. Redemonstration of sphenoid sin us soft tissue mass. Paranasal sinuses are otherwise unremarkable. IMPRESSION: Severe encephalomalacia without evidence of acute infarct. ACT 112: Negative or not required by law. Electronically signed by: Jos Benitez M.D. 11/23/2020 4:53 PM
[2020-11-23] MEDS: HEPARIN SOD 5,000 UNIT/0.5 ML VIAL SQ SCH (20:00)
[2020-11-23] MEDS: METOPROLOL SUCC 25MG EXT REL TAB PO SCH (20:00)
[2020-11-24] MEDS: LEVOTHYROXINE SODIUM 25 MCG TABLET PO SCH (05:36)
[2020-11-24 08:03] LABS: Basophils # (auto) 0.07 K/uL (0-0.2); Basophils % (auto) 0.7 %; Eosinophils # (auto) 0.28 K/uL (0-0.5); Hematocrit (blood only) 37.6 % (37-47); Hemoglobin 12.5 g/dL (12.0-16.0); Immature Granulocytes # (auto) 0.04 K/uL (0.00-0.02); Immature Granulocytes % (auto) 0.4 %; Lymphocytes # (auto) 2.21 K/uL (1.2-3.4); Lymphocytes % (auto) 23.6 %; Mean Corpuscular Hemoglobin 31.3 pg (25-34); Mean Corpuscular Hgb Conc 33.2 g/dL (32-36); Mean Corpuscular Volume 94.2 fL (80-100); Mean Platelet Volume 9.5 fL (7.4-10.4); Monocytes # (auto) 0.78 K/uL (0.11-0.59); Monocytes % (auto) 8.3 %; Neutrophils # (auto) 5.99 K/uL (1.4-6.5); Platelet Count 465 K/uL (130-400); RDW Coefficient of Variation 14.3 % (11.5-14.5); RDW Standard Deviation 49.2 fL (36.4-46.3); Red Blood Count 3.99 M/uL (4.2-5.4); White Blood Count 9.37 K/uL (4.8-10.8)
[2020-11-24] MEDS: LOSARTAN POTASSIUM 50 MG TAB PO SCH (08:24)
[2020-11-24] MEDS: OXYBUTYNIN CHLORIDE XL 5 MG TABCR PO SCH (08:24)
[2020-11-24] MEDS: MIRABEGRON ER 25 MG TAB PO SCH (08:25)
[2020-11-24] MEDS: ESCITALOPRAM OXALATE 10 MG TAB PO SCH (08:25)
[2020-11-24] MEDS: ASPIRIN 81 MG ECTAB PO SCH (08:26)
[2020-11-24] MEDS: HEPARIN SOD 5,000 UNIT/0.5 ML VIAL SQ SCH ×2 (08:26→21:21)
[2020-11-24] MEDS: ATORVASTATIN 40 MG TAB PO SCH (08:26)
[2020-11-24 08:35] LABS: BUN Creatinine Ratio 22.7 (10-20); Calcium 8.9 mg/dl (8.5-10.1); Creatinine Clr Calc Pharmacy 42.3 ml/min; Est GFR (African American) 64.2 ml/min; Est GFR (Non-African American) 55.4 ml/min; Magnesium 2.1 mg/dl (1.8-2.4); Potassium 3.9 mmol/L (3.5-5.1)
[2020-11-24 08:51] LABS: Estimated Average Glucose 111 mg/dl; Hemoglobin A1C 5.5 % (4.5-5.6)
[2020-11-24] MEDS: POLYETHYLENE (MIRALAX) 17 GM PACK PO SCH (09:44)
--- NOTE | 2020-11-24 12:21 | Electrocardiogram Report ---
Test Reason : Blood Pressure : / mmHG Vent. Rate : 070 BPM Atrial Rate : 070 BPM P-R Int : 188 ms QRS Dur : 084 ms QT Int : 434 ms P-R-T Axes : 034 037 037 degrees QTc Int : 468 ms Poor data quality, interpretation may be adversely affected Normal sinus rhythm Normal ECG When compared with ECG of 10-MAR-2020 20:00, No significant change was found Confirmed by Smooth Barajas ([id number]) on 11/24/2020 12:21:07 PM Referred By: Confirmed By:Smooth Barajas
--- NOTE | 2020-11-24 15:08 | XCELERA ---
[id number]
[2020-11-24 17:14] LABS: Appearance Urine Cloudy (Clear); Bacteria Urine Automated 4+ (Negative); Bilirubin Urine Negative (Negative); Blood Urine 2+ (Negative); Color Urine Yellow; Epithelial Cell Urine Auto >30 /lpf (0-5); Glucose Urine UA Negative (Negative); Ketones Urine Negative (Negative); Leukocyte Esterase Urine 3+ (Negative); Nitrite Urine Positive (Negative); Protein Urine Trace (Negative); Specific Gravity Urine 1.018 (1.000-1.030); Urobilinogen Urine Negative (Negative); WBC Urine Automated >30 /hpf (0-5)
[2020-11-24] MEDS: cefTRIAXone SODIUM 2,000 MG in DEXTROSE 5% 50 ML IV SCH (21:21)
[2020-11-24] MEDS: METOPROLOL SUCC 25MG EXT REL TAB PO SCH (21:23)
--- NOTE | 2020-11-24 21:38 | Hospitalist Progress Note ---
Date of Service November 24, 2020 Assessment & Plan (1) TIA (transient ischemic attack): Plan: I do believe the patient had a TIA given she had localizing symptoms to the right arm/leg. Pt's reports that when EMS arrived to their home her BP is low; thus, other explanation for symptoms is that she hypoperfused her previous area of stroke leading to acute/chronic right-sided weakness. other possibility - "tia/stroke mimic" (UTI). either way NO NEW STROKE as MRI Brain is negative. I do not believe that changing her asa/plavix to aggrenox would confer any additional benefit thus leave DAPT as is. Consider 30-day event monitor after d/c to exclude PAF. (2) UTI (urinary tract infection): Plan: u/a highly consistent with such. start rocephin 2gm daily. urine culture. could explain some of her presenting symptoms. (3) Aortic valve vegetation: Plan: may be degenerative in nature according to [facility]. to exclude infective endocarditis, however, will send blood cx's. in light of prior stroke, possible presenting TIA, etc - need for additional testing (ie - ELVIS)? consider formal cardiology consultation. (4) Episode of generalized weakness: Plan: Arrived as Stroke Alert. symptoms resolved within 1-2 hours of arrival. MRI brain negative for acute CVA. see above in #1. (5) CVA (cerebral vascular accident): Plan: HISTORY OF. ischemic and hemorrhagic - left MCA territory. now w/ encephalomalacia. Cont ASA/Plavix for 2nd prevention. Cont statin. (6) Hemiparesis 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: Plan: As above- walks with walker PT/OT evals (7) CAD (coronary artery disease): Plan: CAD with 3 JOHN in the past - Continue statin, asa, plavix - Continue Metoprolol - Continue Losartan - NTG PRN - NO ischemic symptoms this admission; repeat echo this admission without wall motion abnormalities (8) Hypertension: Plan: resume all typical BP meds (9) Hypercholesterolemia: Plan: statin (10) Impaired fasting glucose: Plan: a1c 5.5% normal range; not even pre-DM no need for BSG checks (11) History of cardioembolic cerebrovascular accident (CVA): Plan: As above hemorrhagic and ischemic (12) Urinary incontinence: Plan: 2nd UTI?? 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 (18) Chronic kidney disease, stage 3a: Plan: Cr and CrCl at baseline Plan: DVT proph - heparin no discharge today extensively updated today Admission and Anticipated Discharge Date Admission Date: November 23, 2020 Subjective patient sitting in chair at bedside patient states that acute/chronic weakness of right leg (and states the right arm too) yesterday now back to baseline symptoms last a couple of hours states even her speech was "off" during the episode yesterday the right leg has been chronically weak since prior stroke; states her right leg drags w/ ambulation right arm/hand mildly weak chronically as well but leg is much worse also, in the last 24 hours, has had dysuria with urinary frequency those symptoms are better today tele overnight wnl Review of Systems Review of Systems: gen - no fevers/chills; appetite fair at best today cv - no chest pain pulm - no cough/dyspnea GI - no abd pain, N/V Physical Exam Physical Exam: gen - NAD; obese; speech clear/fluent neck - no JVD mouth - MMM heart - RRR, s1 s2 lungs - CTA b/l abd - soft NT ND ext - no edema neuro - strength RLE 4/5; strength RUE near 5/5; no pronator drift; speech clear; no facial droop Results & Data Results & Data ([facility]) Vital Signs (Past 12 Hours) Vital Signs Temp Pulse Pulse Resp BP BP Pulse Ox 11/24/20 19:00 36.7 C 78 20 144/99 H 94 11/24/20 16:14 63 11/24/20 15:41 36.7 C 69 18 155/79 H 95 Laboratory Results Laboratory Results - last 24 hr 11/24/20 11/24/20 11/24/20 07:32 07:32 07:32 WBC 9.37 RBC 3.99 L Hgb 12.5 Hct 37.6 MCV 94.2 MCH 31.3 MCHC 33.2 RDW Std Deviation 49.2 H RDW Coeff of Roberto 14.3 Plt Count 465 H MPV 9.5 Immature Gran % (Auto) 0.4 Neut % (Auto) 64.0 Lymph % (Auto) 23.6 [place] % (Auto) 8.3 Eos % (Auto) 3.0 Baso % (Auto) 0.7 Neut # (Auto) 5.99 Lymph # (Auto) 2.21 [place] # (Auto) 0.78 H Eos # (Auto) 0.28 Baso # (Auto) 0.07 Immature Gran # (Auto) 0.04 H Sodium 137 Potassium 3.9 Chloride 104 Carbon Dioxide 27 Anion Gap 5.0 BUN 22 H Creatinine 0.95 Est Cr Clr Drug Dosing 42.3 Est GFR ( Amer) 64.2 Est GFR (Non-Af Amer) 55.4 BUN/Creatinine Ratio 22.7 H Glucose 100 H POC Glucose Estimat Average Glucose 111 Hemoglobin A1c 5.5 Calcium 8.9 Magnesium 2.1 Triglycerides 142 Cholesterol 136 LDL Cholesterol, Calc 73 VLDL Cholesterol, Calc 28 HDL Cholesterol 35 Cholesterol/HDL Ratio 4 Urine Color Urine Appearance Urine pH Ur Specific [place] Urine Protein Urine Glucose (UA) Urine Ketones Urine Blood Urine Nitrite Urine Bilirubin Urine Urobilinogen Ur Leukocyte Esterase Urine WBC (Auto) Urine RBC (Auto) U Hyaline Cast (Auto) U Epithel Cells (Auto) Urine Bacteria (Auto) 11/24/20 11/24/20 11/24/20 07:47 12:05 16:42 WBC RBC Hgb Hct MCV MCH MCHC RDW Std Deviation RDW Coeff of Roberto Plt Count MPV Immature Gran % (Auto) Neut % (Auto) Lymph % (Auto) [place] % (Auto) Eos % (Auto) Baso % (Auto) Neut # (Auto) Lymph # (Auto) [place] # (Auto) Eos # (Auto) Baso # (Auto) Immature Gran # (Auto) Sodium Potassium Chloride Carbon Dioxide Anion Gap BUN Creatinine Est Cr Clr Drug Dosing Est GFR ( Amer) Est GFR (Non-Af Amer) BUN/Creatinine Ratio Glucose POC Glucose 113 H 118 H 158 H Estimat Average Glucose Hemoglobin A1c Calcium Magnesium Triglycerides Cholesterol LDL Cholesterol, Calc VLDL Cholesterol, Calc HDL Cholesterol Cholesterol/HDL Ratio Urine Color Urine Appearance Urine pH Ur Specific [place] Urine Protein Urine Glucose (UA) Urine Ketones Urine Blood Urine Nitrite Urine Bilirubin Urine Urobilinogen Ur Leukocyte Esterase Urine WBC (Auto) Urine RBC (Auto) U Hyaline Cast (Auto) U Epithel Cells (Auto) Urine Bacteria (Auto) 11/24/20 11/24/20 16:48 20:18 WBC RBC Hgb Hct MCV MCH MCHC RDW Std Deviation RDW Coeff of Roberto Plt Count MPV Immature Gran % (Auto) Neut % (Auto) Lymph % (Auto) [place] % (Auto) Eos % (Auto) Baso % (Auto) Neut # (Auto) Lymph # (Auto) [place] # (Auto) Eos # (Auto) Baso # (Auto) Immature Gran # (Auto) Sodium Potassium Chloride Carbon Dioxide Anion Gap BUN Creatinine Est Cr Clr Drug Dosing Est GFR ( Amer) Est GFR (Non-Af Amer) BUN/Creatinine Ratio Glucose POC Glucose 125 H Estimat Average Glucose Hemoglobin A1c Calcium Magnesium Triglycerides Cholesterol LDL Cholesterol, Calc VLDL Cholesterol, Calc HDL Cholesterol Cholesterol/HDL Ratio Urine Color Yellow Urine Appearance Cloudy A Urine pH 7.0 Ur Specific [place] 1.018 Urine Protein Trace H Urine Glucose (UA) Negative Urine Ketones Negative Urine Blood 2+ H Urine Nitrite Positive A Urine Bilirubin Negative Urine Urobilinogen Negative Ur Leukocyte Esterase 3+ H Urine WBC (Auto) >30 H Urine RBC (Auto) 10-30 H U Hyaline Cast (Auto) 1-5 U Epithel Cells (Auto) >30 H Urine Bacteria (Auto) 4+ H PG Care Time/CCT Total # of Minutes Spent Total Time Spent with Patient: Total time spent is greater than 50% in coordination of care (as documented) at patient's floor/unit and/or counseling patient: Coding Level of Care Code 07265 Subseq Obs Care Lvl 3 Diagnoses Episode of generalized weakness R53.1 CVA (cerebral vascular accident) I63.9 Hemiparesis 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 I69.351 CAD (coronary artery disease) I25.10 Associated angina: without angina Coronary Disease-Associated Artery/Lesion type: unspecified vessel or lesion type [place] vs. transplanted heart: [place] heart Hypertension I10 Hypertension type: essential hypertension Hypercholesterolemia E78.00 Impaired fasting glucose R73.01 History of cardioembolic cerebrovascular accident (CVA) Z86.73 Urinary incontinence R32 [address] Z93.3 Abdominal pain R10.30 Abdominal location: lower abdomen, unspecified Hypothyroidism E03.9 Hypothyroidism type: unspecified Low back pain M54.5; G89.29 Back pain laterality: unspecified Chronicity: chronic Sciatica presence: unspecified whether sciatica present TIA (transient ischemic attack) G45.9 UTI (urinary tract infection) N39.0 Aortic valve vegetation I33.0 Spherocytosis, hereditary D58.0 Chronic kidney disease, stage 3a N18.31 (1) Low back pain Back pain laterality: unspecified Chronicity: chronic Sciatica presence: unspecified whether sciatica present Qualified Code(s): M54.5 - Low back pain; G89.29 - Other chronic pain (2) CAD (coronary artery disease) Associated angina: without angina Coronary Disease-Associated Artery/Lesion type: unspecified vessel or lesion type [place] vs. transplanted heart: [place] heart Qualified Code(s): I25.10 - Atherosclerotic heart disease of [place] coronary artery without angina pectoris (3) Hypothyroidism Hypothyroidism type: unspecified Qualified Code(s): E03.9 - Hypothyroidism, unspecified (4) Abdominal pain Abdominal location: lower abdomen, unspecified Qualified Code(s): R10.30 - Lower abdominal pain, unspecified (5) Hypertension Hypertension type: essential hypertension Qualified Code(s): I10 - Essential (primary) hypertension
[2020-11-25] MEDS: LEVOTHYROXINE SODIUM 25 MCG TABLET PO SCH (05:52)
[2020-11-25 07:30] LABS: BUN Creatinine Ratio 26.3 (10-20); Calcium 8.6 mg/dl (8.5-10.1); Creatinine Clr Calc Pharmacy 44.6 ml/min; Est GFR (African American) 66.7 ml/min; Est GFR (Non-African American) 57.6 ml/min; Potassium 3.8 mmol/L (3.5-5.1)
[2020-11-25] MEDS: ASPIRIN 81 MG ECTAB PO SCH (09:50)
[2020-11-25] MEDS: ATORVASTATIN 40 MG TAB PO SCH (09:50)
[2020-11-25] MEDS: ESCITALOPRAM OXALATE 10 MG TAB PO SCH (09:51)
[2020-11-25] MEDS: MIRABEGRON ER 25 MG TAB PO SCH (09:52)
[2020-11-25] MEDS: HEPARIN SOD 5,000 UNIT/0.5 ML VIAL SQ SCH ×2 (09:52→20:11)
[2020-11-25] MEDS: LOSARTAN POTASSIUM 50 MG TAB PO SCH (09:52)
[2020-11-25] MEDS: OXYBUTYNIN CHLORIDE XL 5 MG TABCR PO SCH (09:52)
[2020-11-25] MEDS: POLYETHYLENE (MIRALAX) 17 GM PACK PO SCH (09:53)
--- NOTE | 2020-11-25 13:08 | Electrocardiogram Report ---
Test Reason : Blood Pressure : / mmHG Vent. Rate : 065 BPM Atrial Rate : 065 BPM P-R Int : 172 ms QRS Dur : 080 ms QT Int : 440 ms P-R-T Axes : 033 053 -04 degrees QTc Int : 457 ms Poor data quality, interpretation may be adversely affected Normal sinus rhythm Abnormal ECG When compared with ECG of 23-NOV-2020 10:27, (unconfirmed) T wave inversion now evident in Inferior leads T wave inversion now evident in Anterolateral leads Confirmed by Smooth Barajas ([id number]) on 11/25/2020 1:07:56 PM Referred By: REFERRED SELF Confirmed By:Smooth Barajas
[2020-11-25] MEDS: cefTRIAXone SODIUM 2,000 MG in DEXTROSE 5% 50 ML IV SCH (19:57)
[2020-11-25] MEDS: METOPROLOL SUCC 25MG EXT REL TAB PO SCH (20:10)
--- NOTE | 2020-11-25 21:02 | Hospitalist Progress Note ---
Date of Service November 25, 2020 Assessment & Plan (1) TIA (transient ischemic attack): Plan: I do believe the patient had a TIA given she had localizing symptoms to the right arm/leg at time of admission. Symptoms lasted 2-3 hours then resolved. MRI brain neg for acute CVA. Pt's reports that when EMS arrived to their home her BP is low; thus, other explanation for symptoms is that she hypoperfused her previous area of stroke leading to acute/chronic right-sided weakness. other possibility - "tia/stroke mimic" (UTI). I do not believe that changing her asa/plavix to aggrenox would confer any additional benefit thus leave DAPT as is. Consider 30-day event monitor after d/c to exclude PAF to be complete. (2) UTI (urinary tract infection): Plan: 2nd GNR day #2 rocephin await final culture (3) Aortic valve vegetation: Plan: may be degenerative in nature according to [facility]. to exclude infective endocarditis, however, blood cx's sent. thus far negative. in light of prior stroke, possible presenting TIA, etc - need for additional testing (ie - ELVIS)? consider formal cardiology consultation. (4) Episode of generalized weakness: Plan: Arrived as Stroke Alert. symptoms resolved within ~2 hours of arrival. MRI brain negative for acute CVA. see above in #1. (5) CVA (cerebral vascular accident): Plan: HISTORY OF. ischemic and hemorrhagic - left MCA territory. now w/ encephalomalacia. Cont ASA/Plavix for 2nd prevention. Cont statin. Is right hand symptoms related to old Left MCA territory stroke? (6) Hemiparesis 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: Plan: As above- walks with walker PT/OT evals done - can return to [facility] at d/c (7) CAD (coronary artery disease): Plan: CAD with 3 JOHN in the past - Continue statin, asa, plavix - Continue Metoprolol - Continue Losartan - NTG PRN - NO ischemic symptoms this admission; repeat echo this admission without wall motion abnormalities (8) Hypertension: Plan: controlled (9) Hypercholesterolemia: Plan: statin (10) Impaired fasting glucose: Plan: a1c 5.5% normal range; not even pre-DM no need for BSG checks (11) History of cardioembolic cerebrovascular accident (CVA): Plan: As above hemorrhagic and ischemic (12) Urinary incontinence: Plan: 2nd UTI?? 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 (18) Chronic kidney disease, stage 3a: Plan: Cr and CrCl at baseline Plan: DVT proph - heparin extensively updated yesterday at bedside left message for him on voicemail tonight will reach out to Pain Management - suspect they will delay her steroid injection to L-spine because of active UTI resume plavix if they reschedule such back to [facility] tomorrow? Admission and Anticipated Discharge Date Admission Date: November 25, 2020 Subjective patient states she didn't feel well this am - it was vague the way she was describing it - but now feels better than the am eating ok no further urinary symptoms some fatigue/tiredness mentions getting a spasm in her right hand for about 1 month happens 2-3x's a day nothing in the right arm nothing in right leg right arm/leg weakness is at baseline Review of Systems Review of Systems: gen - mild fatigue cv - no cp pulm - no cough, no dyspnea GI - no N/V despite not feeling well this am Physical Exam Physical Exam: gen - NAD; obese; speech clear/fluent neck - no JVD mouth - MMM heart - RRR, s1 s2 lungs - CTA b/l abd - soft NT ND BS+; ostomy with brown liquid stool ext - no edema, pulses 2+ b/l neuro - strength RLE 4/5; strength RUE near 5/5; no pronator drift; speech clear; no facial droop I did not witness any hand/arm shaking (RUE) this am no spasm witnessed either Results & Data Results & Data ([facility]) Vital Signs (Past 12 Hours) Vital Signs Temp Pulse Pulse Resp BP BP Pulse Ox 11/25/20 19:00 36.7 C 108 H 20 153/84 H 93 11/25/20 16:18 76 11/25/20 15:18 36.6 C 73 18 136/80 93 11/25/20 11:12 36.4 C L 88 18 130/65 94 11/25/20 11:06 70 Laboratory Results Laboratory Results - last 24 hr 11/25/20 11/25/20 11/25/20 06:30 08:07 12:05 Sodium 135 L Potassium 3.8 Chloride 104 Carbon Dioxide 23 Anion Gap 8.0 BUN 24 H Creatinine 0.92 Est Cr Clr Drug Dosing 44.6 Est GFR ( Amer) 66.7 Est GFR (Non-Af Amer) 57.6 BUN/Creatinine Ratio 26.3 H Glucose 111 H POC Glucose 123 H 144 H Calcium 8.6 11/25/20 11/25/20 16:23 20:06 Sodium Potassium Chloride Carbon Dioxide Anion Gap BUN Creatinine Est Cr Clr Drug Dosing Est GFR ( Amer) Est GFR (Non-Af Amer) BUN/Creatinine Ratio Glucose POC Glucose 106 H 141 H Calcium Diagnostic Findings Urine cx - GNR, >100,000 CFU PG Care Time/CCT Total # of Minutes Spent Total Time Spent with Patient: Total time spent is greater than 50% in coordination of care (as documented) at patient's floor/unit and/or counseling patient: Coding Level of Care Code 10328 Subseq Hosp Care Lvl 2 Diagnoses TIA (transient ischemic attack) G45.9 UTI (urinary tract infection) N39.0 Aortic valve vegetation I33.0 Episode of generalized weakness R53.1 CVA (cerebral vascular accident) I63.9 Hemiparesis 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 I69.351 CAD (coronary artery disease) I25.10 Associated angina: without angina Coronary Disease-Associated Artery/Lesion type: unspecified vessel or lesion type [place] vs. transplanted heart: [place] heart Hypertension I10 Hypertension type: essential hypertension Hypercholesterolemia E78.00 Impaired fasting glucose R73.01 History of cardioembolic cerebrovascular accident (CVA) Z86.73 Urinary incontinence R32 [address] Z93.3 Abdominal pain R10.30 Abdominal location: lower abdomen, unspecified Hypothyroidism E03.9 Hypothyroidism type: unspecified Low back pain M54.5; G89.29 Back pain laterality: unspecified Chronicity: chronic Sciatica presence: unspecified whether sciatica present Spherocytosis, hereditary D58.0 Chronic kidney disease, stage 3a N18.31 (1) Low back pain Back pain laterality: unspecified Chronicity: chronic Sciatica presence: unspecified whether sciatica present Qualified Code(s): M54.5 - Low back pain; G89.29 - Other chronic pain (2) CAD (coronary artery disease) Associated angina: without angina Coronary Disease-Associated Artery/Lesion type: unspecified vessel or lesion type [place] vs. transplanted heart: [place] heart Qualified Code(s): I25.10 - Atherosclerotic heart disease of [place] co ronary artery without angina pectoris (3) Hypothyroidism Hypothyroidism type: unspecified Qualified Code(s): E03.9 - Hypothyroidism, unspecified (4) Abdominal pain Abdominal location: lower abdomen, unspecified Qualified Code(s): R10.30 - Lower abdominal pain, unspecified (5) Hypertension Hypertension type: essential hypertension Qualified Code(s): I10 - Essential (primary) hypertension
[2020-11-26] MEDS: LEVOTHYROXINE SODIUM 25 MCG TABLET PO SCH (06:19)
[2020-11-26] MEDS: ESCITALOPRAM OXALATE 10 MG TAB PO SCH (09:28)
[2020-11-26] MEDS: ASPIRIN 81 MG ECTAB PO SCH (09:29)
[2020-11-26] MEDS: MIRABEGRON ER 25 MG TAB PO SCH (09:29)
[2020-11-26] MEDS: OXYBUTYNIN CHLORIDE XL 5 MG TABCR PO SCH (09:29)
[2020-11-26] MEDS: ATORVASTATIN 40 MG TAB PO SCH (09:30)
[2020-11-26] MEDS: LOSARTAN POTASSIUM 50 MG TAB PO SCH (09:30)
[2020-11-26] MEDS: HEPARIN SOD 5,000 UNIT/0.5 ML VIAL SQ SCH ×2 (09:30→21:29)
[2020-11-26] MEDS: POLYETHYLENE (MIRALAX) 17 GM PACK PO SCH (09:31)
[2020-11-26] MEDS: HYDROCODONE/ACETAMOPHEN 5/325MG TAB PO PRN (09:36)
[2020-11-26] MEDS ORDERED: CLOPIDOGREL BISULFATE 75 MG TAB PO ONE (10:55)
[2020-11-26 11:08] LABS: BUN Creatinine Ratio 23.6 (10-20); Calcium 8.3 mg/dl (8.5-10.1); Creatinine Clr Calc Pharmacy 42.8 ml/min; Est GFR (African American) 63.4 ml/min; Est GFR (Non-African American) 54.7 ml/min; Potassium 4.2 mmol/L (3.5-5.1)
[2020-11-26] MEDS: ADVANCED PROBIOTIC 1250 MG CAPSULE PO SCH (11:50)
--- NOTE | 2020-11-26 12:08 | Electrocardiogram Report ---
Test Reason : Blood Pressure : / mmHG Vent. Rate : 074 BPM Atrial Rate : 074 BPM P-R Int : 162 ms QRS Dur : 082 ms QT Int : 420 ms P-R-T Axes : 018 -01 006 degrees QTc Int : 466 ms Normal sinus rhythm Inferior infarct , age undetermined Abnormal ECG When compared with ECG of 24-NOV-2020 07:06, (unconfirmed) Inferior infarct is now Present Nonspecific T wave abnormality has replaced inverted T waves in Inferior leads T wave inversion no longer evident in Lateral leads Confirmed by Smooth Barajas ([id number]) on 11/26/2020 12:08:14 PM Referred By: REFERRED SELF Confirmed By:Smooth Barajas
[2020-11-26] MEDS ORDERED: SODIUM CHLORIDE 0.9% 500 ML IV SCH (14:45)
--- NOTE | 2020-11-26 21:20 | Hospitalist Progress Note ---
Date of Service November 26, 2020 Assessment & Plan (1) TIA (transient ischemic attack): Plan: I do believe the patient had a TIA given she had localizing symptoms to the right arm/leg at time of admission. Symptoms lasted 2-3 hours then resolved. MRI brain neg for acute CVA. Other possibility is that the UTI acted as a "stroke/TIA mimic." Pt's reports that when EMS arrived to their home her BP is low; thus, other explanation for symptoms is that she hypoperfused her previous area of stroke leading to acute/chronic right-sided weakness. I do not believe that changing her asa/plavix to aggrenox would confer any additional benefit thus leave DAPT as is. Consider 30-day event monitor after d/c to exclude PAF to be complete. (2) UTI (urinary tract infection): Plan: 2nd kleb - pansens s/p 2 days of rocephin change to keflex 500 BID x 5 additional days (3) Aortic valve vegetation: Plan: may be degenerative in nature according to reading grievance and appeals specialist. to exclude infective endocarditis, however, blood cx's sent. thus far negative. spoke with cardiology regarding the degeneration seen - nothing to do for such. (4) Episode of generalized weakness: Plan: Arrived as Stroke Alert. symptoms resolved within ~2 hours of arrival. MRI brain negative for acute CVA. see above in #1. cont PT/OT (5) CVA (cerebral vascular accident): Plan: HISTORY OF. ischemic and hemorrhagic - left MCA territory. now w/ encephalomalacia. Cont ASA/Plavix for 2nd prevention. Cont statin. Is right hand symptoms related to old Left MCA territory stroke? (6) Hemiparesis 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: Plan: As above- walks with walker PT/OT evals done - can return to [facility] at d/c (7) CAD (coronary artery disease): Plan: CAD with 3 JOHN in the past - Continue statin, asa, plavix - Continue Metoprolol - Continue Losartan - NTG PRN - NO ischemic symptoms this admission; repeat echo this admission without wall motion abnormalities (8) Hypertension: Plan: controlled (9) Hypercholesterolemia: Plan: statin (10) Impaired fasting glucose: Plan: a1c 5.5% normal range; not even pre-DM no need for BSG checks (11) History of cardioembolic cerebrovascular accident (CVA): Plan: As above hemorrhagic and ischemic (12) Urinary incontinence: Plan: suspect 2nd to active UTI PVR done today --- 50cc only emptying adequately (13) Colostomy in place: Plan: 2nd to perforated bowel per records (14) Abdominal pain: Plan: resolved (15) Hypothyroidism: Plan: Continue with synthroid TSH July 2020 - wnl (16) Low back pain: Plan: Chronic with right LE radiculopathy/pain PT, OT pain meds was to see pain management in the near-future for steroid injection updated Dr Alanis re her admission injection canceled next week - to be rescheduled plavix resumed (17) Spherocytosis, hereditary: Plan: 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 (18) Chronic kidney disease, stage 3a: Plan: Cr and CrCl at baseline Plan: DVT proph - heparin extensively updated at bedside 2 days ago left message for him on voicemail yesterday spoke with pt's daughter FLO - lives in [facility]-- full update given hopefully can d/c next 1-2 days poor liquid intake - give additional IVF today; bmp am Admission and Anticipated Discharge Date Admission Date: November 25, 2020 Subjective asks when she can d/c home but in same sentence states she is weak, tired appetite fair/good but not drinking water per staff no abd pain no cp no worsening acute/chronic right arm/leg weakness - at baseline no dyspnea tele - wnl Review of Systems Review of Systems: gen - no fevers or chills CV - no cp pulm - no cough GI - ostomy output normal Physical Exam Physical Exam: gen - NAD; obese; speech clear/fluent; looks good neck - no JVD mouth - MM dry heart - RRR, s1 s2 lungs - CTA b/l abd - soft NT ND BS+; ostomy with brown liquid stool ext - no edema, pulses 2+ b/l neuro - strength RLE 4/5; strength RUE near 5/5; speech clear; no facial droop Results & Data Results & Data ([facility]) Vital Signs (Past 12 Hours) Vital Signs Temp Pulse Pulse Resp BP BP Pulse Ox 11/26/20 19:00 36.8 C 72 20 107/72 98 11/26/20 15:45 36.5 C 64 16 113/70 93 11/26/20 14:20 63 10/21/21 11:40 36.6 C 61 16 133/72 94 Laboratory Results Laboratory Results - last 24 hr 11/26/20 11/26/20 11/26/20 07:21 08:08 09:39 Sodium Cancelled Potassium Cancelled Chloride Cancelled Carbon Dioxide Cancelled Anion Gap Cancelled BUN Cancelled Creatinine Cancelled Est Cr Clr Drug Dosing Cancelled Est GFR ( Amer) Cancelled Est GFR (Non-Af Amer) Cancelled BUN/Creatinine Ratio Cancelled Glucose Cancelled POC Glucose 120 H 200 H Calcium Cancelled 11/26/20 11/26/20 11/26/20 09:41 10:40 11:32 Sodium 133 L Potassium 4.2 Chloride 103 Carbon Dioxide 24 Anion Gap 6.0 BUN 23 H Creatinine 0.96 Est Cr Clr Drug Dosing 42.8 Est GFR ( Amer) 63.4 Est GFR (Non-Af Amer) 54.7 BUN/Creatinine Ratio 23.6 H Glucose 134 H POC Glucose 193 H 110 H Calcium 8.3 L 11/26/20 11/26/20 16:25 20:26 Sodium Potassium Chloride Carbon Dioxide Anion Gap BUN Creatinine Est Cr Clr Drug Dosing Est GFR ( Amer) Est GFR (Non-Af Amer) BUN/Creatinine Ratio Glucose POC Glucose 102 H 115 H Calcium Diagnostic Findings urine cx - klebsiella PG Care Time/CCT Total # of Minutes Spent Total Time Spent with Patient: Total time spent is greater than 50% in coordination of care (as documented) at patient's floor/unit and/or counseling patient: Coding Level of Care Code 54380 Subseq Hosp Care Lvl 3 Diagnoses TIA (transient ischemic attack) G45.9 UTI (urinary tract infection) N39.0 Aortic valve vegetation I33.0 Episode of generalized weakness R53.1 CVA (cerebral vascular accident) I63.9 Hemiparesis 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 I69.351 CAD (coronary artery disease) I25.10 Associated angina: without angina Coronary Disease-Associated Artery/Lesion type: unspecified vessel or lesion type [place] vs. transplanted heart: [place] heart Hypertension I10 Hypertension type: essential hypertension Hypercholesterolemia E78.00 Impaired fasting glucose R73.01 History of cardioembolic cerebrovascular accident (CVA) Z86.73 Urinary incontinence R32 [address] Z93.3 Abdominal pain R10.30 Abdominal location: lower abdomen, unspecified Hypothyroidism E03.9 Hypothyroidism type: unspecified Low back pain M54.5; G89.29 Back pain laterality: unspecified Chronicity: chronic Sciatica presence: unspecified whether sciatica present Spherocytosis, hereditary D58.0 Chronic kidney disease, stage 3a N18.31 (1) Low back pain Back pain laterality: unspecified Chronicity: chronic Sciatica presence: unspecified whether sciatica present Qualified Code(s): M54.5 - Low back pain; G89.29 - Other chronic pain (2) CAD (coronary artery disease) Associated angina: without angina Coronary Disease-Associated Artery/Lesion type: unspecified vessel or lesion type [place] vs. transplanted heart: [place] heart Qualified Code(s): I25.10 - Atherosclerotic heart disease of [place] coronary artery without angina pectoris (3) Hypothyroidism Hypothyroidism type: unspecified Qualified Code(s): E03.9 - Hypothyroidism, unspecified (4) Abdominal pain Abdominal location: lower abdomen, unspecified Qualified Code(s): R10.30 - Lower abdominal pain, unspecified (5) Hypertension Hypertension type: essential hypertension Qualified Code(s): I10 - Essential (primary) hypertension
[2020-11-26] MEDS: METOPROLOL SUCC 25MG EXT REL TAB PO SCH (21:29)
[2020-11-26] MEDS: cephALEXin 500 MG CAP PO SCH (21:29)
[2020-11-27] MEDS: LEVOTHYROXINE SODIUM 25 MCG TABLET PO SCH (05:49)
[2020-11-27 07:42] LABS: Hematocrit (blood only) 36.5 % (37-47); Hemoglobin 12.1 g/dL (12.0-16.0); Mean Corpuscular Hemoglobin 31.2 pg (25-34); Mean Corpuscular Hgb Conc 33.2 g/dL (32-36); Mean Corpuscular Volume 94.1 fL (80-100); Mean Platelet Volume 9.5 fL (7.4-10.4); Platelet Count 437 K/uL (130-400); RDW Coefficient of Variation 14.4 % (11.5-14.5); RDW Standard Deviation 49.3 fL (36.4-46.3); Red Blood Count 3.88 M/uL (4.2-5.4); White Blood Count 10.04 K/uL (4.8-10.8)
[2020-11-27] MEDS: ESCITALOPRAM OXALATE 10 MG TAB PO SCH (08:01)
[2020-11-27] MEDS: cephALEXin 500 MG CAP PO SCH (08:01)
[2020-11-27] MEDS: OXYBUTYNIN CHLORIDE XL 5 MG TABCR PO SCH (08:02)
[2020-11-27] MEDS: ATORVASTATIN 40 MG TAB PO SCH (08:02)
[2020-11-27] MEDS: LOSARTAN POTASSIUM 50 MG TAB PO SCH (08:03)
[2020-11-27] MEDS: ADVANCED PROBIOTIC 1250 MG CAPSULE PO SCH (08:03)
[2020-11-27] MEDS: POLYETHYLENE (MIRALAX) 17 GM PACK PO SCH (08:04)
[2020-11-27] MEDS: ASPIRIN 81 MG ECTAB PO SCH (08:04)
[2020-11-27] MEDS: HEPARIN SOD 5,000 UNIT/0.5 ML VIAL SQ SCH (08:04)
[2020-11-27] MEDS: MIRABEGRON ER 25 MG TAB PO SCH (08:06)
[2020-11-27 08:19] LABS: BUN Creatinine Ratio 26.7 (10-20); Calcium 8.7 mg/dl (8.5-10.1); Creatinine Clr Calc Pharmacy 49.1 ml/min; Est GFR (African American) 74.5 ml/min; Est GFR (Non-African American) 64.3 ml/min; Magnesium 2.2 mg/dl (1.8-2.4); Potassium 4.2 mmol/L (3.5-5.1)
[2020-11-27] MEDS ORDERED: CLOPIDOGREL BISULFATE 75 MG TAB PO SCH (09:00)
[2020-11-27] MEDS: HYDROCODONE/ACETAMOPHEN 5/325MG TAB PO PRN (09:32)
[2020-11-27] MEDS ORDERED: STROKE PATIENT DISCHARGE STA (16:11)
--- NOTE | 2020-11-27 16:21 | Discharge Summary ---
Date of Service November 27, 2020 Admission HPI Per Admitting Provider 85 YOF with past medical history of: CAD x3 stents(NSTEMI, LAD, DAVID x2 LCx JOHN 2018), HTN, HLD, [id number], with residual right sided weakness, CKD IIIa, bowel perforation s/p colostomy, parastomal hernia, spherocytosis s/p splenectomy, urinary incontinence and frequency. Patient was brought in to the EMD today as a stroke alert. The patient symptoms were generalized weakness, but increased on her right side, dizziness without syncope. This started right after breakfast around ~800 am where she was eating breakfast. After getting up for breakfast she had the onset of dizziness and weakness. She feels that her right leg was weaker than normal, but her right arm was OK She denied any visual changes or change in the ability to speak or understand speech. The symptoms lasted until she got to the EMD after she had a large output of watery stool from her ostomy. The patient had no other associated symptoms and relived as previously noted. In the EMD she had a CT/CTA of the head and neck, routine labs, ECG performed. Her CTA of the head and neck was interpreted as not notable for any acute changes and consistent stenosis of her M1 and A1 segments when compared to 2019. Patient was deemed not a tPA candidate for previous hemorrhagic CVA in 2018. Patient is waiting for MRI at this time. Her NIHSS is 0 at this time without any other new acute findings. She has some abdominal tenderness in her upper quadrants and noted a looser stool than normal from her ostomy last evening as well. Will obtain KUB. Patient will be observed on medical telemetry to monitor for resolution of neurological symptoms, complete MRI of the brain, PT/OT evaluation and follow her abdominal pain and ostomy output. Patient has had her COVID vaccine and her COVID test is: NEGATIVE on admisson. Discharge Data Allergies Allergy/AdvReac Type Severity Reaction Status Date / Time vancomycin Allergy Intermediate rash Verified 11/23/20 11:34 diphenhydramine Allergy Mild Redness Verified 11/23/20 11:34 clavulanic acid Allergy Unknown Unknown Verified 11/23/20 11:34 codeine Allergy Unknown Unknown Verified 11/23/20 11:34 Consultations 11/23/20 11:12 ED Decision to Admit Stat Ordered Studies 11/23/20 10:07 CT angio head w con Stat CT angio neck with con Stat CT head/brain wo con Stat 11/23/20 10:48 MR brain wo con Stat Hospital Course (1) TIA (transient ischemic attack): I do believe the patient had a TIA given she had localizing symptoms to the right arm/leg at time of admission. Symptoms lasted 2-3 hours then resolved. MRI brain neg for acute CVA. Other possibility is that the UTI acted as a "stroke/TIA mimic." Pt's reports that when EMS arrived to their home her BP is low; thus, ot her explanation for symptoms is that she hypoperfused her previous area of stroke leading to acute/chronic right-sided weakness. I do not believe that changing her asa/plavix to aggrenox would confer any additional benefit thus leave DAPT as is. Consider 30-day event monitor after d/c to exclude PAF to be complete. (2) UTI (urinary tract infection): 2nd kleb - pansens s/p 2 days of rocephin change to keflex 500 BID x 5 additional days (3) Aortic valve vegetation: may be degenerative in nature according to reading mid level project manager. to exclude infective endocarditis, however, blood cx's sent. thus far negative. spoke with cardiology regarding the degeneration seen - nothing to do for such. (4) Episode of generalized weakness: Arrived as Stroke Alert. symptoms resolved within ~2 hours of arrival. MRI brain negative for acute CVA. see above in #1. cont PT/OT (5) CVA (cerebral vascular accident): HISTORY OF. ischemic and hemorrhagic - left MCA territory. now w/ encephalomalacia. Cont ASA/Plavix for 2nd prevention. Cont statin. Is right hand symptoms related to old Left MCA territory stroke? (6) Hemiparesis 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: As above- walks with walker PT/OT evals done - can return to [facility] at d/c (7) CAD (coronary artery disease): CAD with 3 JOHN in the past - Continue statin, asa, plavix - Continue Metoprolol - Continue Losartan - NTG PRN - NO ischemic symptoms this admission; repeat echo this admission without wall motion abnormalities (8) Hypertension: controlled (9) Hypercholesterolemia: statin (10) Impaired fasting glucose: a1c 5.5% normal range; not even pre-DM no need for BSG checks (11) History of cardioembolic cerebrovascular accident (CVA): As above hemorrhagic and ischemic (12) Urinary incontinence: suspect 2nd to active UTI PVR done today --- 50cc only emptying adequately (13) Colostomy in place: 2nd to perforated bowel per records (14) Abdominal pain: resolved (15) Hypothyroidism: Continue with synthroid TSH July 2020 - wnl (16) Low back pain: Chronic with right LE radiculopathy/pain PT, OT pain meds was to see pain management in the near-future for steroid injection updated Dr Alanis re her admission injection canceled next week - to be rescheduled plavix resumed (17) Spherocytosis, hereditary: 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 (18) Chronic kidney disease, stage 3a: Cr and CrCl at baseline DVT proph - heparin extensively updated at bedside 2 days ago left message for him on voicemail yesterday spoke with pt's daughter FLO - lives in [facility]-- full update given hopefully can d/c next 1-2 days poor liquid intake - give additional IVF today; bmp am Discharge Plan Discharge Items Patient Disposition: Home - Home Health Services Reason For Visit: Weakness, Stroke-like symptoms Discharge Diagnosis: 1. possible TIA (Transient ischemic attack) 2. urinary tract infection 3. stroke like symptoms - due to either #1 or #2 4. Non-emergency contact: Primary Care Provider and Neurologist Call non-emergency contact if: you have any medication questions Follow-up/Referrals: Fermin Srivastava MD [Physician] - (see Dr Srivastava or any provider - h/o stroke; Right hand dystonia episodes??) Isabel Alanis DO [Physician] - (call to reschedule your back injection) Shilpa Parker MD [Primary Care Provider] - 12/03/20 11:30 am Diet: Carb Consistent or DM2 Addtl Attending Provider Instructions: Mrs Grace, You were hospitalized after having had a several hour episode of weakness -- primarily a worsening of your right leg and right arm baseline weakness (you have residual weakness from your prior stroke). Initially it was thought that you were having another stroke. Your acute weakness did improve and your MRI of the brain did not show a new stroke (showed your old stroke). We found evidence of UTI (urinary tract infection). You received antibiotics for this - initially IV then by mouth. It is possible that the UTI was the culprit in everything you had had at home. Sometimes a UTI can "mimic" a stroke. It is also possible that you had BOTH a UTI and a transient ischemic attack ("TIA"). See handout. Your weakness of your right arm and leg are back to baseline. You all mentioned that you have been having brief episodes of your right hand becoming tight/balled-up. It is possible that this is something called "dystonia." I am recommending that you have a consult with [facility] for this. lastly, we will set you up with a 30-day monitor to check for abnormal heart rhythms. This is something you will wear at your home. This is just to be complete to ensure nothing else caused your presenting symptoms. Recommendations - 1. cephalexin 500mg twice daily for 5 days for UTI 2. continue your aspirin and plavix as previous; Dr Alanis is aware of your hospital stay and has canceled your upcoming shot in your back. She will contact you to reschedule this. 3. check your blood sugars at least once daily to ensure they are staying in normal range; less than 150 is ideal for you. Follow-up - see separate section Return to [facility] if - * you have fevers over 100 degrees * you have any TIA or stroke symptoms as listed below * you have worsening output via your ostomy * any other concerns It was my pleasure caring for you! -Dr Chase Addtl Director Of Events Provider Instructions: Risk Factors for Stroke: You can reduce your chances of stroke by working with your medical provider to adopt a healthy lifestyle. Some specific ways to lower your chance of stroke are: * If you are a smoker, now is the time to stop smoking cigarettes * If you are diabetic, improve the control of your blood sugars * Avoid excessive amounts of alcohol * Control high blood pressure * Lose weight if you are overweight * Be sure to lead an active lifestyle * Eat a healthy diet low in salt, cholesterol and fat You should know about other risk factors for stroke that you are unable to control. These include: * Age 55 years or older * Male gender * Certain racial groups: , or / * Family History of Stroke, Mini stroke or Heart Attack * Sickle Cell Disease Follow Up: It is important for you to keep your follow up appointments with your medical provider. Who to Call and When: Medical Emergencies: Call 911 immediately if you experience any of the following warning signs and symptoms of Stroke: * Sudden numbness or weakness of the face, arm or leg, especially on one side of the body * Sudden confusion, trouble speaking or understanding * Sudden trouble seeing in one or both eyes * Sudden trouble walking, dizziness, loss of balance or coordination * Sudden severe headache with no cause Do not delay calling 911 if you experience any warning signs or symptoms of a stroke. Delay in seeking medical attention may affect what treatments can be given to you. . Pending Studies at Discharge: Yes Studies:: blood cultures, but thus far negative Stand-Alone Forms: My [facility] iQV[employer], Smoking Cessation Medications and DC Order Prescriptions: New clopidogrel 75 mg Tablet 75 mg PO QAM Qty: 30 RF: 2 cephalexin 500 mg Capsule 500 mg PO BID 5 Days Qty: 10 RF: 0 Advanced Probiotic 625 mg (10 billion cell) Capsule 2 cap PO DAILY 7 Days Qty: 14 RF: 0 lorazepam [Ativan] 0.5 mg tablet See Rx Instructions .ROUTE .COMPLEX PRN (Reason: sleep) Qty: 30 RF: 0 Continued cetirizine 10 mg tablet 10 mg PO HS Qty: 0 RF: 0 escitalopram oxalate [Lexapro] 5 mg tablet 5 mg PO DAILY Qty: 90 RF: 1 levothyroxine 25 mcg tablet 25 mcg PO QAM Qty: 90 RF: 1 metoprolol succinate 25 mg tablet extended release 24 hr 25 mg PO HS Qty: 90 RF: 3 losartan 50 mg tablet 50 mg PO QAM Qty: 90 RF: 3 atorvastatin 40 mg tablet 40 mg PO QAM Qty: 90 RF: 3 polyethylene glycol 3350 [Gavilax] 17 gram/dose powder 17 g PO DAILY Qty: 510 RF: 1 hydrocodone-acetaminophen 5-325 mg tablet 1 tab PO BID PRN (Reason: Pain) Qty: 100 RF: 0 oxybutynin chloride 10 mg tablet extended release 24hr 10 mg PO DAILY Qty: 30 RF: 2 Myrbetriq 50 mg tablet extended release 24 hr 50 mg PO DAILY Qty: 30 RF: 5 cholecalciferol (vitamin D3) 25 mcg (1,000 unit) capsule 1,000 unit PO DAILY RF: 0 acetaminophen 500 mg tablet 500 mg PO Q4H PRN (Reason: Pain) RF: 0 aspirin [Aspirin Low Dose] 81 mg Tablet,Delayed Release (Dr/Ec) 81 mg PO QAM RF: 0 nitroglycerin 0.4 mg tablet, sublingual 0.4 mg sublingual UD PRN (Reason: Chest Pain) RF: 0 Centrum Silver 0.4-300-250 mg-mcg-mcg Tablet 1 tab PO QAM RF: 0 Discontinued lorazepam [Ativan] 0.5 mg tablet See Rx Instructions PO HS PRN (Reason: anxiety) Qty: 30 RF: 0 Discharge Orders: Discharge Order (Routine); Ordered 11/27/20 Ordered By: Kenneth Chase Admission Data Admit Date/Time: 11/25/20 16:07 Attending Provider: Kenneth Chase Admit Provider: Antonino Burt Primary Care Provider: Shilpa Parker Other Providers: Jai Fine Coding Diagnoses TIA (transient ischemic attack) G45.9 UTI (urinary tract infection) N39.0 Aortic valve vegetation I33.0 Episode of generalized weakness R53.1 CVA (cerebral vascular accident) I63.9 Hemiparesis 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 I69.351 CAD (coronary artery disease) I25.10 Coronary Disease-Associated Artery/Lesion type: unspecified vessel or lesion type [place] vs. transplanted heart: [place] heart Associated angina: without angina Hypertension I10 Hypertension type: essential hypertension Hypercholesterolemia E78.00 Impaired fasting glucose R73.01 History of cardioembolic cerebrovascular accident (CVA) Z86.73 Urinary incontinence R32 [address] Z93.3 Abdominal pain R10.30 Abdominal location: lower abdomen, unspecified Hypothyroidism E03.9 Hypothyroidism type: unspecified Low back pain M54.5; G89.29 Chronicity: chronic Back pain laterality: unspecified Sciatica presence: unspecified whether sciatica present Spherocytosis, hereditary D58.0 Chronic kidney disease, stage 3a N18.31
--- NOTE | 2020-11-27 21:20 | Pharmacy Report ---
Pharmacist Stroke Counseling - Date of Service November 27, 2020 - Scope: Pharmacy has been consulted to provide medication discharge counseling for this patient admitted with [ischemic stroke] [hemorrhagic stroke] [transient ischemic attack] as per the Pharmacist Discharge Counseling for Stroke Patients Prot ocol. - Medications on Discharge: Home Medications Medication Instructions Recorded Confirmed aspirin 81 mg tablet,delayed 81 mg PO QAM 11/22/17 11/23/20 release (Aspirin Low Dose) jeuztxgd-foo-vascr acid 0.4 1 tab PO QAM 05/30/18 11/23/20 mg-lycopene 300 mcg-lutein 250 mcg tablet (Centrum Silver) nitroglycerin 0.4 mg sublingual 0.4 mg SUBLINGUAL UD PRN 07/21/18 11/23/20 tablet cetirizine 10 mg tablet 10 mg PO HS #0 tab 09/16/19 11/23/20 acetaminophen 500 mg tablet 500 mg PO Q4H PRN tab 04/24/20 11/23/20 cholecalciferol (vitamin D3) 25 1,000 unit PO DAILY cap 04/24/20 11/23/20 mcg (1,000 unit) capsule Medication Instructions Recorded escitalopram oxalate 5 mg tablet 5 mg PO DAILY #90 tab 06/03/20 (Lexapro) levothyroxine 25 mcg tablet 25 mcg PO QAM #90 tab 07/03/20 metoprolol succinate 25 mg 25 mg PO HS #90 tab 08/04/20 tablet,extended release 24 hr atorvastatin 40 mg tablet 40 mg PO QAM #90 tab 08/13/20 losartan 50 mg tablet 50 mg PO QAM #90 tab 08/13/20 polyethylene glycol 3350 17 17 g PO DAILY #510 g 08/18/20 gram/dose oral powder (Gavilax) hydrocodone 5 mg-acetaminophen 325 1 tab PO BID PRN #100 tab 09/23/20 mg tablet mirabegron 50 mg tablet,extended 50 mg PO DAILY #30 tab 10/01/20 release 24 hr (Myrbetriq) oxybutynin chloride 10 mg 10 mg PO DAILY #30 tab 10/01/20 tablet,extended release 24 hr L.acidop,casei,lactis,rham-B.lact,pastor 2 cap PO DAILY 7 Days #14 cap 11/27/20 625 mg (10 billion cell) capsule (Advanced Probiotic) cephalexin 500 mg capsule 500 mg PO BID 5 Days #10 cap 11/27/20 clopidogrel 75 mg tablet 75 mg PO QAM #30 tab 11/27/20 lorazepam 0.5 mg tablet (Ativan) See Rx Instructions .ROUTE 11/27/20 .COMPLEX PRN #30 tab - Action: The above medications, specifically ones for stroke treatment/prophylaxis, have been reviewed in detail with the patient and/or patient business process representative(s) prior to discharge. This includes indication, common adverse reactions, drug interactions, and medication administration. Medication counseling has been employed using the teach-back method to ensure understanding. - Outcome: The patient and/or patient business process representative(s) have demonstrated understanding of the medications. Thank you for allowing pharmacy to be involved in the care of this patient. Please call [phone] with any additional questions
== END 2020-11-27 17:12 | disposition home health service (06) | DRG 690 ==
LOC: 2W 10:10 → ED 10:10 → SUATTDRO 11:08 → 2W 13:51

== ENCOUNTER 2021-02-06 09:55 | Observation (INO) ==
--- NOTE | 2021-02-06 10:06 | Emergency Department Note ---
History of Present Illness General Chief complaint: Stroke Alert Source: EMS History of Present Illness Provider complaint: Strokelike symptoms Onset (ago): minute(s) (45) 85-year-old female presents emergency department via EMS for strokelike symptoms from [facility] Per EMS, at 0900 the patient began slurring her words and was having right upper extremity weakness. Patient does have a history of strokes. EMS reports that the patient's symptoms became better as they were pulling into the hospital driveway. Home Medications Medication Instructions Recorded Confirmed Type aspirin 81 mg tablet,delayed 81 mg PO QAM 11/22/17 02/06/21 History release (Aspirin Low Dose) bunzeuiw-mcg-heczy acid 0.4 1 tab PO QAM 05/30/18 02/06/21 History mg-lycopene 300 mcg-lutein 250 mcg tablet (Centrum Silver) nitroglycerin 0.4 mg sublingual 0.4 mg SUBLINGUAL UD PRN 07/21/18 02/06/21 History tablet cetirizine 10 mg tablet 10 mg PO HS #0 tab 09/16/19 02/06/21 History acetaminophen 500 mg tablet 500 mg PO Q4H PRN tab 04/24/20 02/06/21 History cholecalciferol (vitamin D3) 25 1,000 unit PO DAILY cap 04/24/20 02/06/21 History mcg (1,000 unit) capsule escitalopram oxalate 5 mg tablet 5 mg PO DAILY #90 tab 06/03/20 02/06/21 Rx (Lexapro) levothyroxine 25 mcg tablet 25 mcg PO QAM #90 tab 07/03/20 02/06/21 Rx metoprolol succinate 25 mg 25 mg PO HS #90 tab 08/04/20 02/06/21 Rx tablet,extended release 24 hr atorvastatin 40 mg tablet 40 mg PO QAM #90 tab 08/13/20 02/06/21 Rx losartan 50 mg tablet 50 mg PO QAM #90 tab 08/13/20 02/06/21 Rx polyethylene glycol 3350 17 17 g PO DAILY #510 g 08/18/20 02/06/21 Rx gram/dose oral powder (Gavilax) mirabegron 50 mg tablet,extended 50 mg PO DAILY #30 tab 10/01/20 02/06/21 Rx release 24 hr (Myrbetriq) oxybutynin chloride 10 mg 10 mg PO DAILY #30 tab 10/01/20 02/06/21 Rx tablet,extended release 24 hr clopidogrel 75 mg tablet 75 mg PO QAM #30 tab 11/27/20 02/06/21 Rx lorazepam 0.5 mg tablet (Ativan) See Rx Instructions .ROUTE 11/27/20 02/06/21 Rx .COMPLEX PRN #30 tab hydrocodone 5 mg-acetaminophen 325 1 tab PO BID PRN #100 tab 01/11/21 02/06/21 Rx mg tablet Allergies Allergy/AdvReac Type Severity Reaction Status Date / Time vancomycin Allergy Intermediate rash Verified 02/06/21 11:48 diphenhydramine Allergy Mild Redness Verified 02/06/21 11:48 clavulanic acid Allergy Unknown Unknown Verified 02/06/21 11:48 codeine Allergy Unknown Unknown Verified 02/06/21 11:48 Past Med/Surg History Medical History Breast cancer CAD (coronary artery disease) NSTEMI in 08/2017; 2 JOHN to LAD and 1 to LCx Carotid artery stenosis Cataract Cerebrovascular disease CKD (chronic kidney disease) stage 3, GFR 30-59 ml/min Diverticulitis Diverticulosis of colon Hemiparesis 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 History of cardioembolic cerebrovascular accident (CVA) History of cerebrovascular accident History of open sigmoidectomy Hypercholesterolemia Hypertension Hypertensive crisis Hypothyroidism Impaired fasting glucose Lumbago Non-hemorrhagic cerebrovascular accident (CVA) Pancreatitis Perforated bowel Pseudoaneurysm Sciatic leg pain Secondary thrombocytosis Spherocytosis, hereditary Spinal stenosis, 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 Urinary symptom or sign Surgical History Colostomy in place History of arthroscopy of right knee History of breast surgery History of section History of section History of cholecystectomy History of colectomy History of colonoscopy History of colposcopy History of dilation and curettage History of knee replacement History of lumpectomy History of splenectomy History of splenectomy History of tonsillectomy and adenoidectomy History of tubal ligation Hx of cholecystectomy S/P angioplasty with stent Status post breast lumpectomy Family History Unknown Heart disease Diabetes Breast cancer Uncle Colorectal cancer Mother , age 54 of complications post splenectomy No problems noted. 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 How many Children do You have: 3 Feels Safe at Home: Yes Childhood Exposure to Second-Hand Smoke: Yes Dental Care, Regularly: No Seatbelt Use: always Sunscreen Use: Yes Assistive Devices: None Review of Systems A total of 10 systems reviewed and were otherwise negative Physical Exam Vital Signs Vital Signs - 24 hr 02/06/21 10:14 02/06/21 10:17 02/06/21 10:30 Temperature 36.8 C Temperature Source Oral Pulse Rate 79 73 73 Pulse Rate [Apical] 79 Pulse Rate from SpO2 Sensor 73 73 Respiratory Rate 20 17 16 Respiratory Effort / Characteristics Non-Labored Spontaneous Respiratory Depth Normal Respiratory Pattern Regular Blood Pressure 182/94 H Blood Pressure [Right Arm] 182/94 H Blood Pressure Mean 123 Blood Pressure Mean [Right Arm] 123 Pulse Oximetry 96 97 97 Oxygen Delivery Method Room Air Sepsis Recent Fever Within 48 Hours No Sepsis New/Unexplained Change in Mental Status No Sepsis Action Taken by Nursing No Action Required 02/06/21 10:31 02/06/21 11:00 Temperature Temperature Source Pulse Rate 83 66 Pulse Rate [Apical] Pulse Rate from SpO2 Sensor 68 Respiratory Rate 16 16 Respiratory Effort / Characteristics Respiratory Depth Respiratory Pattern Blood Pressure 182/94 H 148/93 H Blood Pressure [Right Arm] Blood Pressure Mean 123 111 Blood Pressure Mean [Right Arm] Pulse Oximetry 80 L 95 Oxygen Delivery Method Sepsis Recent Fever Within 48 Hours Sepsis New/Unexplained Change in Mental Status Sepsis Action Taken by Nursing Physical Exam GENERAL: She is oriented to person, place, and time. She appears well-developed and well-nourished. She does not appear distressed. HENT: Exam performed. -Head: Normocephalic and atraumatic. -Right Ear: External ear normal. No mastoid tenderness. -Left Ear: External ear normal. No mastoid tenderness. -Mouth/Throat: The oropharynx is clear and moist. No trismus in the jaw. No dental abscesses or uvula swelling. No oropharyngeal exudate or tonsillar abscesses. EYES: Conjunctivae and EOM are normal. Pupils are equal, round, and reactive to light. Right eye exhibits no discharge. Left eye exhibits no discharge. No scleral icterus. NECK: Normal range of motion. Neck supple. No JVD present. No spinous process tenderness present. No carotid bruit present. No rigidity. No tracheal deviation and normal range of motion present. No Brudzinski's sign and no Kernig's sign noted. CV: Normal rate, regular rhythm, normal heart sounds and intact distal pulses. There is no peripheral edema. Palpable radial pulses bue. PULM/CHEST: Effort normal and breath sounds normal. No respiratory distress. No stridor. She has no wheezes. She has no rales. -Chest Wall: She exhibits no tenderness. ABD: The abdomen is soft. Bowel sounds are normal. She has no distension. No mass is present. There is no tenderness. There is no rebound, no guarding, no Brothers's sign and no tenderness at McBurney's point. Rovsig negative MUSC/SKEL: Normal range of motion. There is no peripheral edema, tenderness or deformity. LYMPH: No cervical adenopathy. NEURO: NIHSS: 0 SKIN: Skin is warm and dry. She is not diaphoretic. PSYCH: She has a normal mood and affect. Behavior is normal. Judgment and thought content normal. Course Course 0943: Call received from EMS for strokelike symptoms began 45 minutes ago. Code stroke called. 0957: The patient was evaluated in room B1. A complete history and physical exam was performed Cardiac monitoring: An order was placed for continuous cardiac monitoring. The monitor shows a rate of [] with [] rhythm EMR reviewed. Patient has a history of hemorrhagic and nonhemorrhagic strokes. Given the history of hemorrhagic strokes, patient is not a TPA candidate. Patient was recently admitted in November for similar strokelike symptoms are thought to be due to a TIA. Patient symptoms have resolved. Patient also has a history of hemorrhagic stroke, patient is not a TPA candidate. Thus no telestroke consult performed. 1200: Vital signs stable. Labs and imaging are within normal limits, no acute changes on CT of the head or CTA of the head and neck. Urinalysis is still pending. Patient symptoms have since resolved and she continues to have an atrial feels 0. Patient received aspirin in the emergency department. Patient will be admitted to the [facility] team for TIA Dr. Pascal team notified. Administered Medications Discontinued Medications Aspirin (Aspirin Chew 324 Mg) 324 mg PO NOW STA Stop: 02/06/21 12:01 Last Admin: 02/06/21 12:47 Dose: 324 mg Documented by: [id number] Ioversol (Optiray 320 125ml) 120 ml IV ONCE ONE Stop: 02/06/21 10:14 Last Admin: 02/06/21 10:13 Dose: 120 ml Documented by: [id number] Medical Decision Making Laboratory Data Result diagrams: 02/06/21 10:17 02/06/21 10:17 Lab Results 02/06/21 02/06/21 02/06/21 Range/Units 10:17 10:17 10:17 WBC 11.48 H (4.8-10.8) K/uL RBC 3.71 L (4.2-5.4) M/uL Hgb 11.5 L (12.0-16.0) g/dL Hct 35.2 L (37-47) % MCV 94.9 (80-100) fL MCH 31.0 (25-34) pg MCHC 32.7 (32-36) g/dL RDW Std Deviation 47.0 H (36.4-46.3) fL RDW Coeff of Roberto 13.5 (11.5-14.5) % Plt Count 403 H (130-400) K/uL MPV 8.9 (7.4-10.4) fL Immature Gran % (Auto) 0.3 % Neut % (Auto) 70.1 % Lymph % (Auto) 19.9 % [place] % (Auto) 8.4 % Eos % (Auto) 1.0 % Baso % (Auto) 0.3 % Neut # (Auto) 8.05 H (1.4-6.5) K/uL Lymph # (Auto) 2.28 (1.2-3.4) K/uL [place] # (Auto) 0.97 H (0.11-0.59) K/uL Eos # (Auto) 0.11 (0-0.5) K/uL Baso # (Auto) 0.03 (0-0.2) K/uL Immature Gran # (Auto) 0.04 H (0.00-0.02) K/uL PT 10.1 (9.0-12.0) Seconds INR 1.0 (0.9-1.1) APTT 27.6 (21.0-31.0) Seconds PTT Ratio 1.0 Sodium (136-145) mmol/L Potassium (3.5-5.1) mmol/L Chloride (98-107) mmol/L Carbon Dioxide (21-32) mmol/L Anion Gap (3-11) BUN (7-18) mg/dl Creatinine (0.6-1.2) mg/dl Est Cr Clr Drug Dosing Est GFR ( Amer) ml/min Est GFR (Non-Af Amer) ml/min BUN/Creatinine Ratio (10-20) Glucose (70-99) mg/dl Calcium (8.5-10.1) mg/dl Magnesium (1.8-2.4) mg/dl Total Bilirubin (0.2-1) mg/dl AST (15-37) U/L ALT (12-78) Alkaline Phosphatase (45-117) U/L Troponin I (0-0.045) ng/ml Total Protein (6.4-8.2) gm/dl Albumin (3.4-5.0) gm/dl Globulin (2.5-4.0) gm/dl Albumin/Globulin Ratio (0.9-2) Urine Color Urine Appearance (Clear) Urine pH (4.5-7.5) Ur Specific [place] (1.000-1.030) Urine Protein (Negative) Urine Glucose (UA) (Negative) Urine Ketones (Negative) Urine Blood (Negative) Urine Nitrite (Negative) Urine Bilirubin (Negative) Urine Urobilinogen (Negative) Ur Leukocyte Esterase (Negative) Urine WBC (Auto) (0-5) /hpf Urine RBC (Auto) (0-4) /hpf U Hyaline Cast (Auto) (0-5) /lpf U Epithel Cells (Auto) (0-5) /lpf Urine Bacteria (Auto) (Negative) Ur Renal Epithelial Cell SARS-CoV-2, RNA, NAAT (NEGATIVE) Blood Type A Positive Antibody Screen NEGATIVE 02/06/21 02/06/21 02/06/21 Range/Units 10:17 10:30 10:57 WBC (4.8-10.8) K/uL RBC (4.2-5.4) M/uL Hgb (12.0-16.0) g/dL Hct (37-47) % MCV (80-100) fL MCH (25-34) pg MCHC (32-36) g/dL RDW Std Deviation (36.4-46.3) fL RDW Coeff of Roberto (11.5-14.5) % Plt Count (130-400) K/uL MPV (7.4-10.4) fL Immature Gran % (Auto) % Neut % (Auto) % Lymph % (Auto) % [place] % (Auto) % Eos % (Auto) % Baso % (Auto) % Neut # (Auto) (1.4-6.5) K/uL Lymph # (Auto) (1.2-3.4) K/uL [place] # (Auto) (0.11-0.59) K/uL Eos # (Auto) (0-0.5) K/uL Baso # (Auto) (0-0.2) K/uL Immature Gran # (Auto) (0.00-0.02) K/uL PT (9.0-12.0) Seconds INR (0.9-1.1) APTT (21.0-31.0) Seconds PTT Ratio Sodium 130 L (136-145) mmol/L Potassium 4.3 (3.5-5.1) mmol/L Chloride 98 (98-107) mmol/L Carbon Dioxide 29 (21-32) mmol/L Anion Gap 3.0 (3-11) BUN 23 H (7-18) mg/dl Creatinine 0.97 (0.6-1.2) mg/dl Est Cr Clr Drug Dosing Not Reportable Est GFR ( Amer) 62.6 ml/min Est GFR (Non-Af Amer) 54.0 ml/min BUN/Creatinine Ratio 24.1 H (10-20) Glucose 120 H (70-99) mg/dl Calcium 8.5 (8.5-10.1) mg/dl Magnesium 2.0 (1.8-2.4) mg/dl Total Bilirubin 0.4 (0.2-1) mg/dl AST 16 (15-37) U/L ALT 19 (12-78) Alkaline Phosphatase 101 (45-117) U/L Troponin I < 0.015 (0-0.045) ng/ml Total Protein 6.1 L (6.4-8.2) gm/dl Albumin 2.4 L (3.4-5.0) gm/dl Globulin 3.7 (2.5-4.0) gm/dl Albumin/Globulin Ratio 0.6 L (0.9-2) Urine Color Yellow Urine Appearance Clear (Clear) Urine pH 7.5 (4.5-7.5) Ur Specific [place] 1.025 (1.000-1.030) Urine Protein Negative (Negative) Urine Glucose (UA) Negative (Negative) Urine Ketones Negative (Negative) Urine Blood Negative (Negative) Urine Nitrite Negative (Negative) Urine Bilirubin Negative (Negative) Urine Urobilinogen Negative (Negative) Ur Leukocyte Esterase 1+ H (Negative) Urine WBC (Auto) 10-30 H (0-5) /hpf Urine RBC (Auto) 0-4 (0-4) /hpf U Hyaline Cast (Auto) 1-5 (0-5) /lpf U Epithel Cells (Auto) >30 H (0-5) /lpf Urine Bacteria (Auto) 1+ H (Negative) Ur Renal Epithelial Cell Not Reportable SARS-CoV-2, RNA, NAAT NEGATIVE (NEGATIVE) Blood Type Antibody Screen Imaging Data Radiologist's Impression: Chest X-Ray 02/06/21 09:51 XR chest 1V portable HISTORY: 85 years-old Female Stroke Like Symptoms COMPARISON: CTA had and neck of same day, chest radiograph 12/10/2019 TECHNIQUE: Portable AP view of the chest FINDINGS: Cardiomediastinal and hilar silhouettes are unchanged. Calcified plaque the thoracic aorta. Unchanged right paratracheal opacity suggestive of vascular ped icle. No pneumothorax, large pleural effusion or overt pulmonary edema. Mild interstitial coarsening is slightly progressed, possibly leasing representative of fibrotic changes. Degenerative changes of the shoulders and spine. IMPRESSION: No acute process. ACT 112: Negative or not required by law. The above report was generated using voice recognition software. It may contain grammatical, syntax or spelling errors. Electronically signed by: Noel Olivarez M.D. 02/06/2021 10:[address] 02/06/21 09:51 CT head/brain wo con CLINICAL HISTORY: 85 years-old Female with Stroke Like Symptoms. Acute strokelike symptoms TECHNIQUE: Multiple axial CT images of the head were obtained without contrast. A dose lowering technique was utilized adhering to the principles of ALARA. COMPARISON: Brain MRI 11/23/2020, CT head, CTA head and neck 11/23/2020 FINDINGS: No acute intracranial hemorrhage, midline shift, intracranial mass, hydrocephalus, territorial ischemia or abnormal extra-axial collection. Age- related involutional changes. White matter hypodensities compatible with chronic microvascular ischemic disease. Unchanged ex vacuo ventriculomegaly. Cerebral vascular calcifications. 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 The calvarium is intact. Mastoid air cells are clear. Expansile polypoid mucosal thickening within the distribution of the sphenoid sinuses is a chronic finding. Unremarkable soft tissues. Prior bilateral lens repair. IMPRESSION: No acute intracranial abnormality. ACT 112: Negative or not required by law. The above report was generated using voice recognition software. It may contain grammatical, syntax or spelling errors. Electronically signed by: Noel Olivarez M.D. 02/06/2021 10:28 AM Head CTA 02/06/21 09:51 CT angio neck with con, CT angio head w con CLINICAL HISTORY: 85 years-old Female with Stroke Like Symptoms. Acute strokelike symptoms COMPARISON STUDY: Head CT of same day, CTA head and neck 11/23/2020 TECHNIQUE: Following the IV administration of 120 mL of Optiray, CT angiogram of the head and neck was performed from the aortic arch to the skull apex. Images are reviewed in the axial, sagittal, and coronal planes. 3-D MIPS images are created and assessed. IV contrast was administered without complication. All measurements were calculated based on NASCET criteria. A dose lowering technique was utilized adhering to the principles of ALARA. CT DOSE: 1147.35 mGy.cm FINDINGS: Atherosclerosis of the thoracic aorta and proximal great vessels. Patency of the innominate and imaged subclavian arteries. There is moderate to extensive diffuse atherosclerotic vascular disease. Patent common carotid arteries. Atherosclerotic plaque of the carotid bulbs and proximal cervical segments of t he internal carotid arteries results in less than 50% stenosis bilaterally. High-grade stenosis of the M1 segment of the right middle cerebral artery on image 125 series 5 is unchanged. There is mild multifocal stenoses of the bilateral middle cerebral arteries. High-grade stenosis at the proximal left A1 segment is also unchanged. Mild to moderate multifocal luminal narrowing of the anterior cerebral arteries. Codominant and patent vertebral arteries. The left vertebral artery predominantly terminates into the left PICA. 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 The posterior cerebral arteries are otherwise patent. The cerebral venous sinuses are patent. There is no abnormal intracranial enhancement. Multinodular thyroid goiter. There is no pneumothorax. Expansile polypoid thickening of the sphenoid sinuses redemonstrated. Degenerative changes of the spine. IMPRESSION: 1. CTA of the head and neck demonstrates no acute abnormality. 2. Diffuse atherosclerotic vascular disease redemonstrated along with multifocal areas of unchanged high-grade intracranial stenoses as detailed above. 3. No aneurysm, dissection, new high-grade stenosis or arterial occlusion identified. ACT 112: Negative or not required by law. The above report was generated using voice recognition software. It may contain grammatical, syntax or spelling errors. Electronically signed by: Noel Olivarez M.D. 02/06/2021 10:42 AM Neck CTA 02/06/21 09:51 CT angio neck with con, CT angio head w con CLINICAL HISTORY: 85 years-old Female with Stroke Like Symptoms. Acute s trokelike symptoms COMPARISON STUDY: Head CT of same day, CTA head and neck 11/23/2020 TECHNIQUE: Following the IV administration of 120 mL of Optiray, CT angiogram of the head and neck was performed from the aortic arch to the skull apex. Images are reviewed in the axial, sagittal, and coronal planes. 3-D MIPS images are created and assessed. IV contrast was administered without complication. All measurements were calculated based on NASCET criteria. A dose lowering technique was utilized adhering to the principles of ALARA. CT DOSE: 1147.35 mGy.cm FINDINGS: Atherosclerosis of the thoracic aorta and proximal great vessels. Patency of the innominate and imaged subclavian arteries. There is moderate to extensive diffuse atherosclerotic vascular disease. Patent common carotid arteries. Atherosclerotic plaque of the carotid bulbs and proximal cervical segments of the internal carotid arteries results in less than 50% stenosis bilaterally. High-grade stenosis of the M1 segment of the right middle cerebral artery on image 125 series 5 is unchanged. There is mild multifocal stenoses of the bilateral middle cerebral arteries. High-grade stenosis at the proximal left A1 segment is also unchanged. Mild to moderate multifocal luminal narrowing of the anterior cerebral arteries. Codominant and patent vertebral arteries. The left vertebral artery predominantly terminates into the left PICA. 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 The posterior cerebral arteries are otherwise patent. The cerebral venous sinuses are patent. There is no abnormal intracranial enhancement. Multinodular thyroid goiter. There is no pneumothorax. Expansile polypoid thickening of the sphenoid sinuses redemonstrated. Degenerative changes of the spine. IMPRESSION: 1. CTA of the head and neck demonstrates no acute abnormality. 2. Diffuse atherosclerotic vascular disease redemonstrated along with multifocal areas of unchanged high-grade intracranial stenoses as detailed above. 3. No aneurysm, dissection, new high-grade stenosis or arterial occlusion identified. ACT 112: Negative or not required by law. The above report was generated using voice recognition software. It may contain grammatical, syntax or spelling errors. Electronically signed by: Noel Olivarez M.D. 02/06/2021 10:42 AM ECG Data Indication: + other (cva symptoms) Rate (beats per minute): 72 Rhythm: + normal sinus ECG Intervals/blocks: + Normal QRS, + Normal UT and + Normal QT-c ECG ST segments: + Normal ST segments MDM Narrative 0943: Call received from EMS for strokelike symptoms began 45 minutes ago. Code stroke called. 0957: The patient was evaluated in room B1. A complete history and physical exam was performed Cardiac monitoring: An order was placed for continuous cardiac monitoring. The monitor shows a rate of [] with [] rhythm EMR reviewed. Patient has a history of hemorrhagic and nonhemorrhagic strokes. Given the history of hemorrhagic strokes, patient is not a TPA candidate. Patient was recently admitted in November for similar strokelike symptoms are thought to be due to a TIA. Patient symptoms have resolved. Patient also has a history of hemorrhagic stroke, patient is not a TPA candidate. Thus no telestroke consult performed. 1200: Vital signs stable. Labs and imaging are within normal limits, no acute changes on CT of the head or CTA of the head and neck. Urinalysis is still pending. Patient symptoms have since resolved and she continues to have an atrial feels 0. Patient received aspirin in the emergency department. Patient will be admitted to the [facility] hospitalist team for TIA Dr. Pascal team notified. Impression & Plan TIA (transient ischemic attack) Discharge Plan Visit Data Chief Complaint: Stroke Alert ED Provider: Christo Alvarez Discharge Problem: TIA (transient ischemic attack) Patient Disposition: Admitted As Inpatient Forms Stand Alone Forms: My [facility] Prescriptions Prescriptions: No Action cetirizine 10 mg tablet 10 mg PO HS Qty: 0 RF: 0 escitalopram oxalate [Lexapro] 5 mg tablet 5 mg PO DAILY Qty: 90 RF: 1 levothyroxine 25 mcg tablet 25 mcg PO QAM Qty: 90 RF: 1 metoprolol succinate 25 mg tablet extended release 24 hr 25 mg PO HS Qty: 90 RF: 3 losartan 50 mg tablet 50 mg PO QAM Qty: 90 RF: 3 atorvastatin 40 mg tablet 40 mg PO QAM Qty: 90 RF: 3 polyethylene glycol 3350 [Gavilax] 17 gram/dose powder 17 g PO DAILY Qty: 510 RF: 1 oxybutynin chloride 10 mg tablet extended release 24hr 10 mg PO DAILY Qty: 30 RF: 2 Myrbetriq 50 mg tablet extended release 24 hr 50 mg PO DAILY Qty: 30 RF: 5 hydrocodone-acetaminophen 5-325 mg tablet 1 tab PO BID PRN (Reason: Pain) Qty: 100 RF: 0 cholecalciferol (vitamin D3) 25 mcg (1,000 unit) capsule 1,000 unit PO DAILY RF: 0 acetaminophen 500 mg tablet 500 mg PO Q4H PRN (Reason: Pain) RF: 0 aspirin [Aspirin Low Dose] 81 mg Tablet,Delayed Release (Dr/Ec) 81 mg PO QAM RF: 0 nitroglycerin 0.4 mg tablet, sublingual 0.4 mg sublingual UD PRN (Reason: Chest Pain) RF: 0 Centrum Silver 0.4-300-250 mg-mcg-mcg Tablet 1 tab PO QAM RF: 0 clopidogrel 75 mg Tablet 75 mg PO QAM Qty: 30 RF: 2 lorazepam [Ativan] 0.5 mg tablet See Rx Instructions .ROUTE .COMPLEX PRN (Reason: sleep) Qty: 30 RF: 0 Referrals Referrals: Shipla Parker MD [Primary Care Provider] -
[2021-02-06] MEDS ORDERED: OPTIRAY 320 125ml IV ONE (10:13)
[2021-02-06 10:26] LABS: Basophils # (auto) 0.03 K/uL (0-0.2); Basophils % (auto) 0.3 %; Eosinophils # (auto) 0.11 K/uL (0-0.5); Hematocrit (blood only) 35.2 % (37-47); Hemoglobin 11.5 g/dL (12.0-16.0); Immature Granulocytes # (auto) 0.04 K/uL (0.00-0.02); Immature Granulocytes % (auto) 0.3 %; Lymphocytes # (auto) 2.28 K/uL (1.2-3.4); Lymphocytes % (auto) 19.9 %; Mean Corpuscular Hgb Conc 32.7 g/dL (32-36); Mean Corpuscular Volume 94.9 fL (80-100); Mean Platelet Volume 8.9 fL (7.4-10.4); Monocytes # (auto) 0.97 K/uL (0.11-0.59); Monocytes % (auto) 8.4 %; Neutrophils # (auto) 8.05 K/uL (1.4-6.5); Neutrophils % (auto) 70.1 %; Platelet Count 403 K/uL (130-400); RDW Coefficient of Variation 13.5 % (11.5-14.5); Red Blood Count 3.71 M/uL (4.2-5.4); White Blood Count 11.48 K/uL (4.8-10.8)
--- NOTE | 2021-02-06 10:29 | CT Scan Report ---
CT head/brain wo con CLINICAL HISTORY: 85 years-old Female with Stroke Like Symptoms. Acute strokelike symptoms TECHNIQUE: Multiple axial CT images of the head were obtained without contrast. A dose lowering tech nique was utilized adhering to the principles of ALARA. COMPARISON: Brain MRI 11/23/2020, CT head, CTA head and neck 11/23/2020 FINDINGS: No acute intracranial hemorrhage, midline shift, intracranial mass, hydrocephalus, territorial ischem ia or abnormal extra-axial collection. Age-related involutional changes. White matter hypodensities c ompatible with chronic microvascular ischemic disease. Unchanged ex vacuo ventriculomegaly. Cerebral vascular calcifications. 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 The calvarium is intact. Mastoid air cells are clear. Expansile polypoid mucosal thickening within t he distribution of the sphenoid sinuses is a chronic finding. Unremarkable soft tissues. Prior bilate ral lens repair. IMPRESSION: No acute intracranial abnormality. ACT 112: Negative or not required by law. The above report was generated using voice recognition software. It may contain grammatical, syntax o r spelling errors. Electronically signed by: Noel Olivarez M.D. 02/06/2021 10:28 AM
[2021-02-06 10:37] LABS: Partial Thromboplastin Time 27.6 Seconds (21.0-31.0); Prothrombin Time 10.1 Seconds (9.0-12.0)
[2021-02-06 10:43] LABS: Alanine Aminotransferase 19 (12-78); Albumin Level 2.4 gm/dl (3.4-5.0); Aspartate Aminotransferase 16 U/L (15-37); BUN Creatinine Ratio 24.1 (10-20); Blood Urea Nitrogen 23 mg/dl (7-18); Calcium 8.5 mg/dl (8.5-10.1); Carbon Dioxide 29 mmol/L (21-32); Chloride 98 mmol/L (98-107); Est GFR (African American) 62.6 ml/min; Glucose 120 mg/dl (70-99); Potassium 4.3 mmol/L (3.5-5.1); Sodium 130 mmol/L (136-145)
--- NOTE | 2021-02-06 10:44 | CT Scan Report ---
CT angio neck with con, CT angio head w con CLINICAL HISTORY: 85 years-old Female with Stroke Like Symptoms. Acute strokelike symptoms COMPARISON STUDY: Head CT of same day, CTA head and neck 11/23/2020 TECHNIQUE: Following the IV administration of 120 mL of Optiray, CT angiogram of the head and neck wa s performed from the aortic arch to the skull apex. Images are reviewed in the axial, sagittal, and c oronal planes. 3-D MIPS images are created and assessed. IV contrast was administered without complic ation. All measurements were calculated based on NASCET criteria. A dose lowering technique was util ized adhering to the principles of ALARA. CT DOSE: 1147.35 mGy.cm FINDINGS: Atherosclerosis of the thoracic aorta and proximal great vessels. Patency of the innominate and image d subclavian arteries. There is moderate to extensive diffuse atherosclerotic vascular disease. Paten t common carotid arteries. Atherosclerotic plaque of the carotid bulbs and proximal cervical segments of the internal carotid arteries results in less than 50% stenosis bilaterally. High-grade stenosis of the M1 segment of the right middle cerebral artery on image 125 series 5 is unchanged. There is mi ld multifocal stenoses of the bilateral middle cerebral arteries. High-grade stenosis at the proximal left A1 segment is also unchanged. Mild to moderate multifocal luminal narrowing of the anterior cer ebral arteries. Codominant and patent vertebral arteries. The left vertebral artery predominantly ter minates into the left PICA. 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 The posterior cerebral arteries are otherwise patent. The cerebral venous sinuses are patent. There is no abnormal intracranial enha ncement. Multinodular thyroid goiter. There is no pneumothorax. Expansile polypoid thickening of the sphenoid sinuses redemonstrated. Degenerative changes of the spine. IMPRESSION: 1. CTA of the head and neck demonstrates no acute abnormality. 2. Diffuse atherosclerotic vascular disease redemonstrated along with multifocal areas of unchanged h igh-grade intracranial stenoses as detailed above. 3. No aneurysm, dissection, new high-grade stenosis or arterial occlusion identified. ACT 112: Negative or not required by law. The above report was generated using voice recognition software. It may contain grammatical, syntax o r spelling errors. Electronically signed by: Noel Olivarez M.D. 02/06/2021 10:42 AM
--- NOTE | 2021-02-06 10:55 | XRay Report ---
XR chest 1V portable HISTORY: 85 years-old Female Stroke Like Symptoms COMPARISON: CTA had and neck of same day, chest radiograph 12/10/2019 TECHNIQUE: Portable AP view of the chest FINDINGS: Cardiomediastinal and hilar silhouettes are unchanged. Calcified plaque the thoracic aorta. Unchanged right paratracheal opacity suggestive of vascular pedicle. No pneumothorax, large pleural effusion o r overt pulmonary edema. 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 Degenerative changes of the shoulders and spine. IMPRESSION: No acute process. ACT 112: Negative or not required by law. The above report was generated using voice recognition software. It may contain grammatical, syntax o r spelling errors. Electronically signed by: Noel Olivarez M.D. 02/06/2021 10:53 AM
[2021-02-06 10:58] LABS: Albumin Globulin Ratio 0.6 (0.9-2); Alkaline Phosphatase 101 U/L (45-117); Bilirubin,Total 0.4 mg/dl (0.2-1); Globulin 3.7 gm/dl (2.5-4.0); Total Protein 6.1 gm/dl (6.4-8.2); Troponin I < 0.015 ng/ml (0-0.045)
[2021-02-06] MEDS ORDERED: ASPIRIN CHEW 324 MG PO STA (12:00)
[2021-02-06 12:10] LABS: Appearance Urine Clear (Clear); Bacteria Urine Automated 1+ (Negative); Bilirubin Urine Negative (Negative); Blood Urine Negative (Negative); Color Urine Yellow; Epithelial Cell Urine Auto >30 /lpf (0-5); Glucose Urine UA Negative (Negative); Ketones Urine Negative (Negative); Leukocyte Esterase Urine 1+ (Negative); Nitrite Urine Negative (Negative); Protein Urine Negative (Negative); RBC Urine Automated 0-4 /hpf (0-4); Specific Gravity Urine 1.025 (1.000-1.030); Urobilinogen Urine Negative (Negative); pH Urine 7.5 (4.5-7.5)
--- NOTE | 2021-02-06 12:41 | History & Physical Report ---
Date of Service February 06, 2021 Assessment & Plan (1) Stroke-like symptoms: Plan: Patient with onset of confusion and inability to speak noted this morning at [facility] - Stroke alert- not tPA candidate secondary to time last known well, resolution of symptoms, hx of hemorhagic CVA - Glucose normal - DDX: TIA, CVA, infectious recrudescence - MRI- evaluate for new ischemia - ECHo - Neuro checks - NIHSS 0 - remains with residual right sided weakness - Continue BB, Statins, ASA/PLavix - Her hx of hemorrhagic cva and age has limited her increase in statin (2) Cerebrovascular disease: Plan: Diffuse atherosclerotic vascular disease redemonstrated along with multifocal areas of unchanged high-grade intracranial stenoses - High-grade stenosis of the M1 segment of the right middle cerebral artery on image 125 series 5 is unchanged. There is mild multifocal stenoses of the bilateral middle cerebral arteries. High-grade stenosis at the proximal left A1 segment is also unchanged. Mild to moderate multifocal luminal narrowing of the anterior cerebral arteries. Codominant and patent vertebral arteries. The left vertebral artery predominantly terminates into the left PICA. Unchanged multif ocal stenoses of the basilar artery which is diminutive stable high-grade stenosis of the left posterior communicating artery - Interpreted as no change when compared to previous imaging performed in NOV 26 - optimally medically managed at this time (3) Leukocytosis: Plan: Mild leukocytosis to 11 with mildly elevated NLR - Likely related to urinary symptoms - UA with straight cath pending- hx of [place] pna in urine - Start empiric Rocephin with culture pending (4) History of cerebrovascular accident: Plan: As above on appropriate disease modyfying medicaitons (5) CAD (coronary artery disease): Plan: CAD with 3 JOHN - Continue statin, asa, plavix - Continue Metoprolol - Continue Losartan in AM - NTG PRN - NO symptoms or ECG changes on arrival (6) Cognitive deficit, post-stroke: Plan: Slow with responses, but approrpriate (7) Lumbago: Plan: continue home medications no acute need (8) Dysuria: Plan: As above- patient only voiced pain with urination when specifically asked and states she thinks it just started this morning - Rocephin 1GM IV q24 hours empiric coverage while Urine culture pending History of Present Illness Primary Care Provider: Shilpa Parker MD 85 YOF with past medical history of: CAD x3 stents(NSTEMI, LAD, DAVID x2 LCx JOHN 2018), HTN, HLD, [id number], with residual right sided weakness, CKD IIIa, bowel perforation s/p colostomy, parastomal hernia, spherocytosis s/p splenectomy, urinary incontinence and frequency. Patient was brought in to the EMD today as a stroke alert. The patient symptoms for complaints of not being able to speak or form words this monring and confusion. Patient states that this did not get better until she arrived at the hospital. Her last known well is unknown. She states that otherwise she has been feeling well without any other complaints. Did not voice burning with urination until specifically asked. Her ostomy output is normal. She was not a candidate for tPAP secondary to onset, resolution of symptoms, and history of Hemorrhagic CVA. Patient currently has NIHSS 0, CTA head and neck and CT of the head reveal no acute changes or large vessel stroke. Patient will be observed overnight and continue with her TIA workup. Patient also with history of UTI, which was also present during her admission in November for similar presentation. Will obtain UA. MRI, ECHO, pending, PT/OT consult. She received asa in the EMD. Patient has received her COVID vaccine and her COVID test on admission is: NEGATIVE Allergies Allergy/AdvReac Type Severity Reaction Status Date / Time vancomycin Allergy Intermediate rash Verified 02/06/21 11:48 diphenhydramine Allergy Mild Redness Verified 02/06/21 11:48 clavulanic acid Allergy Unknown Unknown Verified 02/06/21 11:48 codeine Allergy Unknown Unknown Verified 02/06/21 11:48 Home Medications Medication Instructions Recorded Confirmed Type aspirin 81 mg tablet,delayed 81 mg PO QAM 11/22/17 02/06/21 History release (Aspirin Low Dose) smyixtgk-cfd-amxye acid 0.4 1 tab PO QAM 05/30/18 02/06/21 History mg-lycopene 300 mcg-lutein 250 mcg tablet (Centrum Silver) nitroglycerin 0.4 mg sublingual 0.4 mg SUBLINGUAL UD PRN 07/21/18 02/06/21 History tablet cetirizine 10 mg tablet 10 mg PO HS #0 tab 09/16/19 02/06/21 History acetaminophen 500 mg tablet 500 mg PO Q4H PRN tab 04/24/20 02/06/21 History cholecalciferol (vitamin D3) 25 1,000 unit PO DAILY cap 04/24/20 02/06/21 History mcg (1,000 unit) capsule escitalopram oxalate 5 mg tablet 5 mg PO DAILY #90 tab 06/03/20 02/06/21 Rx (Lexapro) levothyroxine 25 mcg tablet 25 mcg PO QAM #90 tab 07/03/20 02/06/21 Rx metoprolol succinate 25 mg 25 mg PO HS #90 tab 08/04/20 02/06/21 Rx tablet,extended release 24 hr atorvastatin 40 mg tablet 40 mg PO QAM #90 tab 08/13/20 02/06/21 Rx losartan 50 mg tablet 50 mg PO QAM #90 tab 08/13/20 02/06/21 Rx polyethylene glycol 3350 17 17 g PO DAILY #510 g 08/18/20 02/06/21 Rx gram/dose oral powder (Gavilax) mirabegron 50 mg tablet,extended 50 mg PO DAILY #30 tab 10/01/20 02/06/21 Rx release 24 hr (Myrbetriq) oxybutynin chloride 10 mg 10 mg PO DAILY #30 tab 10/01/20 02/06/21 Rx tablet,extended release 24 hr clopidogrel 75 mg tablet 75 mg PO QAM #30 tab 11/27/20 02/06/21 Rx lorazepam 0.5 mg tablet (Ativan) See Rx Instructions .ROUTE 11/27/20 02/06/21 Rx .COMPLEX PRN #30 tab hydrocodone 5 mg-acetaminophen 325 1 tab PO BID PRN #100 tab 01/11/21 02/06/21 Rx mg tablet cefdinir 300 mg capsule 300 mg PO BID #8 cap 02/06/21 Rx losartan 100 mg tablet 100 mg PO DAILY #30 tab 02/06/21 Rx Past Med/Surg History Medical History Breast cancer CAD (coronary artery disease) NSTEMI in 08/2017; 2 JOHN to LAD and 1 to LCx Carotid artery stenosis Cataract Cerebrovascular disease CKD (chronic kidney disease) stage 3, GFR 30-59 ml/min Diverticulitis Diverticulosis of colon Hemiparesis 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 History of cardioembolic cerebrovascular accident (CVA) History of cerebrovascular accident History of open sigmoidectomy Hypercholesterolemia Hypertension Hypertensive crisis Hypothyroidism Impaired fasting glucose Lumbago Non-hemorrhagic cerebrovascular accident (CVA) Pancreatitis Perforated bowel Pseudoaneurysm Sciatic leg pain Secondary thrombocytosis Spherocytosis, hereditary Spinal stenosis, 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 Urinary symptom or sign Surgical History Colostomy in place History of arthroscopy of right knee History of breast surgery History of section History of section History of cholecystectomy History of colectomy History of colonoscopy History of colposcopy History of dilation and curettage History of knee replacement History of lumpectomy History of splenectomy History of splenectomy History of tonsillectomy and adenoidectomy History of tubal ligation Hx of cholecystectomy S/P angioplasty with stent Status post breast lumpectomy Family History Unknown Heart disease Diabetes Breast cancer Uncle Colorectal cancer Mother , age 54 of complications post splenectomy No problems noted. Father , age 89 of heart issues Heart disease Myocardial infarction Brother Prostate cancer Myocardial infarction Denies family history of Ovarian cancer Social History Smoking Status: Never smoker Second Hand Exposure: No; Hx Alcohol Use: No Hx Substance Use: No Preferred Language: Dominican Communication Ability: Effective Hearing Ability: Normal Clinical Microbiologist Required: No Beliefs That Will Affect Care: None marital status: Current Living Situation: Snf Current Living Situation Comment: states her and her went to senior care after broke his leg current occupational status: retired 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 How many Children do You have: 3 Feels Safe at Home: Yes Childhood Exposure to Second-Hand Smoke: Yes Dental Care, Regularly: No Seatbelt Use: always Sunscreen Use: Yes Assistive Devices: None Review of Systems Review of Systems: REVIEW OF SYSTEMS: Constitutional: No fever, sweats or chills Eyes: No diplopia, no worsening or blurred vision ENT: normal hearing, no trouble swallowing Respiratory: No cough, sputum, dyspnea at rest or on exertion Cardiovascular: No chest pain, tightness or palpitations Abdomen: No pain, nausea, vomiting, diarrhea or constipation Musculoskeletal: (+) chronic back joint pain, No calf pain, swelling Neurologic: (+) difficulty speaking and confusion- resolved, (+) residual right leg weakness, numbness/tingling, or balance problems Psychiatric: (+) anxiety Skin: No rash or itch : incontinence, and burning with urination Physical Exam Physical Exam: PHYSICAL EXAM: General: awake, alert, no apparent distress, appropriate Head: Normocephalic, atraumatic ENT: PERRLA, EOMI, no pharyngeal exudate, mucous membranes moist Neuro: AAO x 3, speech clear and appropriate, strength intact bilaterally 5/5 left upper and lower, right upper, 4/5 right lower, sensation intact and equal all extremities and dermatomes, no pronator drift. NIHSS 0 Chest: equal rise and fall of the chest, no accessory muscle use, no heaves or thirlls, Clear to auscultation, on room air, Cardiac: Regular rate and rhythm, telemetry reviewed-NSR, skin warm dry, cap refill <3 seconds, peripheral pulses +2 no JVD, no murmur, no JVD, no edema GI: NABS x 4 quadrants, ostomy with semiformed output, no pain : Spontaneously voiding, burning with urination, frequent incontinence in depends at this current time Extremities: Normal inspection, no peripheral edema or erythema, calfs nontender to palpation Psych: Normal mood and affect Skin: no rash or erythema Results & Data Results & Data ([facility]) Vital Signs (Past 12 Hours) Vital Signs Temp Pulse Pulse Resp BP BP Pulse Ox 02/06/21 11:00 66 16 148/93 H 95 02/06/21 10:31 83 16 182/94 H 80 L 02/06/21 10:30 73 16 97 02/06/21 10:17 73 17 97 02/06/21 10:14 36.8 C 79 79 20 182/94 H 182/94 H 96 Laboratory Results Abnormal lab results 02/06/21 02/06/21 02/06/21 Range/Units 10:17 10:17 10:30 WBC 11.48 H (4.8-10.8) K/uL RBC 3.71 L (4.2-5.4) M/uL Hgb 11.5 L (12.0-16.0) g/dL Hct 35.2 L (37-47) % RDW Std Deviation 47.0 H (36.4-46.3) fL Plt Count 403 H (130-400) K/uL Neut # (Auto) 8.05 H (1.4-6.5) K/uL [place] # (Auto) 0.97 H (0.11-0.59) K/uL Immature Gran # (Auto) 0.04 H (0.00-0.02) K/uL Sodium 130 L (136-145) mmol/L BUN 23 H (7-18) mg/dl BUN/Creatinine Ratio 24.1 H (10-20) Glucose 120 H (70-99) mg/dl Total Protein 6.1 L (6.4-8.2) gm/dl Albumin 2.4 L (3.4-5.0) gm/dl Albumin/Globulin Ratio 0.6 L (0.9-2) Ur Leukocyte Esterase 1+ H (Negative) Urine WBC (Auto) 10-30 H (0-5) /hpf U Epithel Cells (Auto) >30 H (0-5) /lpf Urine Bacteria (Auto) 1+ H (Negative) Diagnostic Findings Chest X-Ray 02/06/21 09:51 XR chest 1V portable HISTORY: 85 years-old Female Stroke Like Symptoms COMPARISON: CTA had and neck of same day, chest radiograph 12/10/2019 TECHNIQUE: Portable AP view of the chest FINDINGS: Cardiomediastinal and hilar silhouettes are unchanged. Calcified plaque the thoracic aorta. Unchanged right paratracheal opacity suggestive of vascular pedicle. No pneumothorax, large pleural effusion or overt pulmonary edema. Mild interstitial coarsening is slightly progressed, possibly payable representative of fibrotic changes. Degenerative changes of the shoulders and spine. IMPRESSION: No acute process. ACT 112: Negative or not required by law. The above report was generated using voice recognition software. It may contain grammatical, syntax or spelling errors. Electronically signed by: Noel Olivarez M.D. 02/06/2021 10:[address] 02/06/21 09:51 CT head/brain wo con CLINICAL HISTORY: 85 years-old Female with Stroke Like Symptoms. Acute st rokelike symptoms TECHNIQUE: Multiple axial CT images of the head were obtained without contrast. A dose lowering technique was utilized adhering to the principles of ALARA. COMPARISON: Brain MRI 11/23/2020, CT head, CTA head and neck 11/23/2020 FINDINGS: No acute intracranial hemorrhage, midline shift, intracranial mass, hydrocephalus, territorial ischemia or abnormal extra-axial collection. Age- related involutional changes. White matter hypodensities compatible with chronic microvascular ischemic disease. Unchanged ex vacuo ventriculomegaly. Cerebral vascular calcifications. 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 The calvarium is intact. Mastoid air cells are clear. Expansile polypoid mucosal thickening within the distribution of the sphenoid sinuses is a chronic finding. Unremarkable soft tissues. Prior bilateral lens repair. IMPRESSION: No acute intracranial abnormality. ACT 112: Negative or not required by law. The above report was generated using voice recognition software. It may contain grammatical, syntax or spelling errors. Electronically signed by: Noel Olivarez M.D. 02/06/2021 10:28 AM Head CTA 02/06/21 09:51 CT angio neck with con, CT angio head w con CLINICAL HISTORY: 85 years-old Female with Stroke Like Symptoms. Acute strokelike symptoms COMPARISON STUDY: Head CT of same day, CTA head and neck 11/23/2020 TECHNIQUE: Following the IV administration of 120 mL of Optiray, CT angiogram of the head and neck was performed from the aortic arch to the skull apex. Images are reviewed in the axial, sagittal, and coronal planes. 3-D MIPS images are created and assessed. IV contrast was administered without complication. All measurements were calculated based on NASCET criteria. A dose lowering technique was utilized adhering to the principles of ALARA. CT DOSE: 1147.35 mGy.cm FINDINGS: Atherosclerosis of the thoracic aorta and proximal great vessels. Patency of the innominate and imaged subclavian arteries. There is moderate to extensive diffuse atherosclerotic vascular disease. Patent common carotid arteries. Atherosclerotic plaque of the carotid bulbs and proximal cervical segments of the internal carotid arteries results in less than 50% stenosis bilaterally. High-grade stenosis of the M1 segment of the right middle cerebral artery on image 125 series 5 is unchanged. There is mild multifocal stenoses of the bilateral middle cerebral arteries. High-grade stenosis at the proximal left A1 segment is also unchanged. Mild to moderate multifocal luminal narrowing of the anterior cerebral arteries. Codominant and patent vertebral arteries. The left vertebral artery predominantly terminates into the left PICA. 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 The posterior cerebral arteries are otherwise patent. The cerebral venous sinuses are patent. There is no abnormal intracranial enhancement. Multinodular thyroid goiter. There is no pneumothorax. Expansile polypoid thickening of the sphenoid sinuses redemonstrated. Degenerative changes of the spine. IMPRESSION: 1. CTA of the head and neck demonstrates no acute abnormality. 2. Diffuse atherosclerotic vascular disease redemonstrated along with multifocal areas of unchanged high-grade intracranial stenoses as detailed above. 3. No aneurysm, dissection, new high-grade stenosis or arterial occlusion identified. ACT 112: Negative or not required by law. The above report was generated using voice recognition software. It may contain grammatical, syntax or spelling errors. Electronically signed by: Noel Olivarez M.D. 02/06/2021 10:42 AM Neck CTA 02/06/21 09:51 CT angio neck with con, CT angio head w con CLINICAL HISTORY: 85 years-old Female with Stroke Like Symptoms. Acute strokelike symptoms COMPARISON STUDY: Head CT of same day, CTA head and neck 11/23/2020 TECHNIQUE: Following the IV administration of 120 mL of Optiray, CT angiogram of the head and neck was performed from the aortic arch to the skull apex. Images are reviewed in the axial, sagittal, and coronal planes. 3-D MIPS images are created and assessed. IV contrast was administered without complication. All measurements were calculated based on NASCET criteria. A dose lowering technique was utilized adhering to the principles of ALARA. CT DOSE: 1147.35 mGy.cm FINDINGS: Atherosclerosis of the thoracic aorta and proximal great vessels. Patency of the innominate and imaged subclavian arteries. There is moderate to extensive diffuse atherosclerotic vascular disease. Patent common carotid arteries. Atherosclerotic plaque of the carotid bulbs and proximal cervical segments of the internal carotid arteries results in less than 50% stenosis bilaterally. High-grade stenosis of the M1 segment of the right middle cerebral artery on image 125 series 5 is unchanged. There is mild multifocal stenoses of the bilateral middle cerebral arteries. High-grade stenosis at the proximal left A1 segment is also unchanged. Mild to moderate multifocal luminal narrowing of the anterior cerebral arteries. Codominant and patent vertebral arteries. The left vertebral artery predominantly terminates into the left PICA. 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 The posterior cerebral arteries are otherwise patent. The cerebral venous sinuses are patent. There is no abnormal intracranial enhancement. Multinodular thyroid goiter. There is no pneumothorax. Expansile polypoid thickening of the sphenoid sinuses redemonstrated. Degenerative changes of the spine. IMPRESSION: 1. CTA of the head and neck demonstrates no acute abnormality. 2. Diffuse atherosclerotic vascular disease redemonstrated along with multifocal areas of unchanged high-grade intracranial stenoses as detailed above. 3. No aneurysm, dissection, new high-grade stenosis or arterial occlusion identified. ACT 112: Negative or not required by law. The above report was generated using voice recognition software. It may contain grammatical, syntax or spelling errors. Electronically signed by: Noel Olivarez M.D. 02/06/2021 10:42 AM Medications Administered Discontinued Medications Ioversol (Optiray 320 125ml) 120 ml IV ONCE ONE Stop: 02/06/21 10:14 Last Admin: 02/06/21 10:13 Dose: 120 ml Documented by: [id number] Home Medications aspirin 81 mg tablet,delayed release (Aspirin Low Dose) 81 mg PO QAM 11/22/17 [History Confirmed 02/06/21] xvhyfyha-unf-peddh acid 0.4 mg-lycopene 300 mcg-lutein 250 mcg tablet (Centrum Silver) 1 tab PO QAM 05/30/18 [History Confirmed 02/06/21] nitroglycerin 0.4 mg sublingual tablet 0.4 mg SUBLINGUAL UD PRN 07/21/18 [History Confirmed 02/06/21] cetirizine 10 mg tablet 10 mg PO HS #0 tab 09/16/19 [History Confirmed 02/06/21] acetaminophen 500 mg tablet 500 mg PO Q4H PRN tab 04/24/20 [History Confirmed 02/06/21] cholecalciferol (vitamin D3) 25 mcg (1,000 unit) capsule 1,000 unit PO DAILY cap 04/24/20 [History Confirmed 02/06/21] escitalopram oxalate 5 mg tablet (Lexapro) 5 mg PO DAILY #90 tab 06/03/20 [Rx Confirmed 02/06/21] levothyroxine 25 mcg tablet 25 mcg PO QAM #90 tab 07/03/20 [Rx Confirmed 02/06/21] metoprolol succinate 25 mg tablet,extended release 24 hr 25 mg PO HS #90 tab 08/04/20 [Rx Confirmed 02/06/21] atorvastatin 40 mg tablet 40 mg PO QAM #90 tab 08/13/20 [Rx Confirmed 02/06/21] losartan 50 mg tablet 50 mg PO QAM #90 tab 08/13/20 [Rx Confirmed 02/06/21] polyethylene glycol 3350 17 gram/dose oral powder (Gavilax) 17 g PO DAILY #510 g 08/18/20 [Rx Confirmed 02/06/21] mirabegron 50 mg tablet,extended release 24 hr (Myrbetriq) 50 mg PO DAILY #30 tab 10/01/20 [Rx Confirmed 02/06/21] oxybutynin chloride 10 mg tablet,extended release 24 hr 10 mg PO DAILY #30 tab 10/01/20 [Rx Confirmed 02/06/21] clopidogrel 75 mg tablet 75 mg PO QAM #30 tab 11/27/20 [Rx Confirmed 02/06/21] lorazepam 0.5 mg tablet (Ativan) See Rx Instructions .ROUTE .COMPLEX PRN #30 tab 11/27/20 [Rx Confirmed 02/06/21] hydrocodone 5 mg-acetaminophen 325 mg tablet 1 tab PO BID PRN #100 tab 01/11/21 [Rx Confirmed 02/06/21] ECG Additional Comments: Normal sinus rhythm ST & T wave abnormality, consider lateral ischemia Abnormal ECG When compared with ECG of 25-NOV-2020 05:46, T wave inversion now evident in Lateral leads Code Status & VTE Plan Code Status CODE: FULL VTE: SCDs, Heparin 5000 units subq q TID VTE Prophylaxis Plan VTE Prophylaxis will be ordered: Yes Supervising Physician Co-Signing Physician Notes I personally examined the patient and verified all guaman points of history and exam, discussed case, and agree with decision making with [facility] symptoms have resolved. Feeling better. Does have dysuria. Daughter present at the bedside, answered all questions the best my ability and to her satisfaction. Patient would very much like to go home. Vitals noted, in general she is awake and alert pleasant no distress. HEENT normocephalic atraumatic mucous membranes moist. Breathing unlabored no accessory muscle use good effort. Skin shows no rashes no pallor or icterus. Neuro without focal deficits. TIAlongstanding and complicated cerebrovascular diseasestrongly suspect small vessel TIA either from vasospasm related to hypertension, or just small thrombosis that was cleared prior to any true stroke ensuing. Really already on appropriate med managementdual antiplatelets, statin (cannot really safely raise the dose given her age and prior intracranial bleed) is not diabetic based on her recent A1c. Pressures running somewhat high is a little bit of a mixed findingcertainly could be autoregulation, but given lack of any other modifiable risks, discussed with patient and daughtermight have been indicative of vasospasmto that end we will increase her losartan for now to 100 mg. Have her blood pressures followed at least daily at personal care, follow for any weak/lightheaded/dizzybut otherwise continue. Also discussed given the complexity of her situation, while I doubt there will likely be anything meaningful to offer, it would be very reasonable for her to see neurologyasked navigator to try to facilitate this. Otherwise stable for return to personal care. PG Care Time/CCT Total # of Minutes Spent Total Time Spent with Patient: Total time spent is greater than 50% in coordination of care (as documented) at patient's floor/unit and/or counseling patient: Coding Level of Care Code None Diagnoses Stroke-like symptoms R29.90 Cerebrovascular disease I67.9 History of cerebrovascular accident Z86.73 CAD (coronary artery disease) I25.10 Associated angina: without angina Coronary Disease-Associated Artery/Lesion type: unspecified vessel or lesion type [place] vs. transplanted heart: [place] heart Cognitive deficit, post-stroke I69.319 Leukocytosis D72.829 Lumbago M54.50 Dysuria R30.0 (1) CAD (coronary artery disease) Associated angina: without angina Coronary Disease-Associated Artery/Lesion type: unspecified vessel or lesion type [place] vs. transplanted heart: [place] heart Qualified Code(s): I25.10 - Atherosclerotic heart disease of [place] coronary artery without angina pectoris
[2021-02-06] MEDS ORDERED: cefTRIAXone SODIUM 2,000 MG in DEXTROSE 5% 50 ML IV ONE (13:45)
--- NOTE | 2021-02-06 14:47 | Magnetic Resonance Report ---
MR brain wo con HISTORY: 85 years-old Female tia, rule out CVA acute strokelike symptoms COMPARISON: Head CT, CTA head and neck of same day, brain MRI 11/23/2020 TECHNIQUE: Multiplanar multisequence MRI the brain was obtained without the use of IV contrast. FINDINGS: Motion degraded exam. The monitoring analyst localizer images demonstrate no gross extracranial abnormality. There is no diffusion to suggest acute or subacute infarct. Midline structures appear unremarkable. Partia lly empty sella. 3 mm pineal gland cyst. No acute intracranial hemorrhage, midline shift, abnormal ex tra axial collection, hydrocephalus or intracranial mass. Age-related involutional changes with ex va cuo ventriculomegaly. Extensive T2/FLAIR hyperintense foci throughout the white matter suggest chroni c microvascular ischemic disease. Cerebral venous sinuses and major arterial flow voids appear patent . Mastoid air cells are clear. Expansile focus of polypoid mucosal thickening in the right sphenoid s inus is unchanged. Prior bilateral lens repair. IMPRESSION: No acute intracranial abnormality. No acute or subacute infarct. ACT 112: Negative or not required by law. The above report was generated using voice recognition software. It may contain grammatical, syntax o r spelling errors. Electronically signed by: Noel Olivarez M.D. 02/06/2021 2:45 PM
[2021-02-06] MEDS ORDERED: HEPARIN SOD 5,000 UNIT/0.5 ML VIAL SQ SCH (18:08)
[2021-02-06] MEDS ORDERED: ACETAMINOPHEN 325 MG TAB PO PRN (18:08)
[2021-02-06] MEDS ORDERED: HYDROCODONE/ACETAMOPHEN 5/325MG TAB PO PRN (18:08)
--- NOTE | 2021-02-06 18:12 | Billing Data ---
Date of Service February 06, 2021 Coding Level of Care Code OBSERV/HOSP SAME DATE LVL 3
[2021-02-06] MEDS ORDERED: METOPROLOL SUCC 25MG EXT REL TAB PO SCH (21:00)
[2021-02-06] MEDS ORDERED: CETIRIZINE HCL 10 MG TABLET PO SCH (21:00)
--- NOTE | 2021-02-06 21:25 | Electrocardiogram Report ---
Test Reason : Blood Pressure : / mmHG Vent. Rate : 072 BPM Atrial Rate : 072 BPM P-R Int : 192 ms QRS Dur : 090 ms QT Int : 404 ms P-R-T Axes : 040 010 020 degrees QTc Int : 442 ms Poor data quality, interpretation may be adversely affected Normal sinus rhythm Abnormal ECG When compared with ECG of 25-NOV-2020 05:46, T wave inversion now evident in Lateral leads Confirmed by Smooth Barajas ([id number]) on 02/06/2021 9:25:25 PM [facility] Confirmed By:Smooth Barajas
[2021-02-07] MEDS ORDERED: LEVOTHYROXINE SODIUM 25 MCG TABLET PO SCH (06:30)
[2021-02-07] MEDS ORDERED: LOSARTAN POTASSIUM 50 MG TAB PO SCH (09:00)
[2021-02-07] MEDS ORDERED: OXYBUTYNIN CHLORIDE XL 5 MG TABCR PO SCH (09:00)
[2021-02-07] MEDS ORDERED: ESCITALOPRAM OXALATE 10 MG TAB PO SCH (09:00)
[2021-02-07] MEDS ORDERED: ATORVASTATIN 40 MG TAB PO SCH (09:00)
[2021-02-07] MEDS ORDERED: MIRABEGRON ER 25 MG TAB PO SCH (09:00)
[2021-02-07] MEDS ORDERED: CLOPIDOGREL BISULFATE 75 MG TAB PO SCH (09:00)
[2021-02-07] MEDS ORDERED: ASPIRIN 81 MG ECTAB PO SCH (09:00)
[2021-02-07] MEDS ORDERED: POLYETHYLENE (MIRALAX) 17 GM PACK PO SCH (09:00)
[2021-02-07] MEDS ORDERED: cefTRIAXone SODIUM 2,000 MG in DEXTROSE 5% 50 ML IV SCH (12:00)
== END 2021-02-06 18:28 | disposition home or self-care (01) ==
LOC: EDINP 09:55 → ED 09:55 → EDINP 15:40

== ENCOUNTER 2021-10-06 11:26 | Observation (INO) ==
[2021-10-06] MEDS ORDERED: HYDROmorphone INJ 0.5 MG/0.5 ML SYR IV STA ×2 (12:09→17:32)
[2021-10-06] MEDS ORDERED: ONDANSETRON INJ 2 MG/ML 2 ML VIAL IV STA (12:09)
[2021-10-06 13:07] LABS: Partial Thromboplastin Time 27.1 Seconds (21.0-31.0); Prothrombin Time 10.4 Seconds (9.0-12.0)
[2021-10-06 13:13] LABS: Basophils # (auto) 0.08 K/uL (0-0.2); Basophils % (auto) 0.7 %; Eosinophils # (auto) 0.25 K/uL (0-0.50); Eosinophils % (auto) 2.2 %; Hematocrit (blood only) 38.1 % (34.1-44.9); Hemoglobin 12.4 g/dl (12.0-16.0); Immature Granulocytes # (auto) 0.05 K/uL (0.00-0.02); Immature Granulocytes % (auto) 0.4 %; Lymphocytes # (auto) 2.84 K/uL (1.2-3.4); Lymphocytes % (auto) 25.2 %; Mean Corpuscular Hemoglobin 30.5 pg (25.0-34.0); Mean Corpuscular Hgb Conc 32.5 g/dL (32.0-36.0); Mean Corpuscular Volume 93.8 fL (80.0-100.0); Mean Platelet Volume 9.8 fL (9.4-12.3); Monocytes # (auto) 0.86 K/uL (0.24-0.82); Monocytes % (auto) 7.6 %; Neutrophils # (auto) 7.18 K/uL (1.4-6.5); Neutrophils % (auto) 63.9 %; Platelet Count 443 K/uL (130-400); RDW Coefficient of Variation 13.4 % (11.5-14.5); RDW Standard Deviation 46.5 fL (36.4-46.3); Red Blood Count 4.06 M/uL (3.93-5.22); White Blood Count 11.26 K/ul (4.8-10.8)
[2021-10-06 13:43] LABS: Albumin Level 3.5 gm/dl (3.4-5.0); Bilirubin,Total 0.4 mg/dl (0.2-1.0); Calcium 9.3 mg/dl (8.5-10.1); Est GFR (African American) 59.9 ml/min; Est GFR (Non-African American) 51.7 ml/min; Globulin 3.6 gm/dl (2.5-4.0); Potassium 4.1 mmol/L (3.5-5.1); Total Protein 7.1 gm/dl (6.0-8.3); Uric Acid 8.4 mg/dl (2.6-7.2)
--- NOTE | 2021-10-06 14:04 | Ultrasound Report ---
ULTRASOUND LEFT LOWER EXTREMITY VENOUS CLINICAL HISTORY: Left leg pain. COMPARISON STUDY: Left lower extremity venous ultrasound dated 12/10/2019. TECHNIQUE: Real-time, grayscale, and color Doppler sonography of the deep veins of the left lower ext remity was performed from the inguinal crease to the calf. Compression and augmentation were utilized . FINDINGS: There is no sonographic evidence of deep venous thrombosis identified in the left lower ext remity. The common femoral, superficial femoral, and popliteal veins are patent and normally compress ible. The greater saphenous vein and the profunda femoris vein at the junction with the common femora l vein are clear. The visualized calf veins are patent. IMPRESSION: There is no sonographic evidence of deep venous thrombosis identified in the left lower e xtremity. ACT 112: Negative or not required by law. Electronically signed by: Valdemar Guido M.D. 10/06/2021 2:03 PM
--- NOTE | 2021-10-06 14:43 | History & Physical Report ---
Date of Service October 06, 2021 Assessment & Plan (1) Leg pain: Plan: Christi is an 86-year-old female with a medical history of CAD with PCI, hypertension, hyperlipidemia, CVA/TIA, chronic right-sided weakness, CKD 3, bowel perforation with colostomy, parastomal hernia, spherocytosis with splenectomy, and urinary incontinence who presents with left medial thigh pain and continued worsening of her weakness. Left leg pain, suspect adductor strain Pain is along the medial aspect of the proximal left lower leg. Abduction is intact but weak and with pain, no evidence of complete muscle tear. Suspect muscle strain when patient was twisting to get into car Outpatient ankle x-ray reportedly normal from patient's PCP, x-ray femur and tib/fib are pending. Passive range of motion testing does not reproduce patient's pain Dopplers negative for clot Patient is not able to take NSAIDs due to CKD. Continue Tylenol, home hydrocodone. We will add Voltaren. No low back pain, patient has urinary incontinence at baseline but has not had any new retention or saddle anesthesia or pain shooting down the back of her leg PT/OT Patient has progressively worsening weakness and difficulty performing daily functions at home. Discussed with patient and her , and note she would prefer to be home but also note that outpatient PT has not been working and she has gotten weaker and now has a new injury. Will follow PT/OT, and likely need at least inpatient rehab temporarily Patient does also report some left ankle and posterior calf pain, however if this is not significantly reproduced on provider assessment in the room. No overlying ankle erythema or disproportionate swelling. Strokelike symptoms/CVD History of TIAs and cerebrovascular disease with strong suspicion for small vessel disease with vasospasm versus TIAs With residual right-sided arm and leg weakness Has followed with neurology as outpatient, last visit in April. Recommended continuing on ASA/Plavix/hypertensive management and/statin and continuing to follow with physical therapy No history of diabetes No new focal neurologic deficits Continue outpatient medications as noted Hypothyroidism Continue Synthroid 25 mcg daily TSH/T4 pending CAD History of apical NSTEMI, LAD with JOHN x2, LCx JOHN 201 TTE 2020: EF 55 to 60%, mild AI No chest pain or anginal symptoms Continue aspirin/Plavix Continue statin Continue losartan Continue metoprolol Chronic venous stasis Patient denies any history of heart failure. Does follow with cardiology for CAD and a history of apical NSTEMI, LAD with JOHN x2, LCx JOHN 2018. DDx does include heart failure with diastolic dysfunction, but suspect her bilateral edema is also related to sedentary lifestyle and poor mobility. No exertional chest pain/angina/dyspnea but patient very weak and did have a very sedentary lifestyle Echo as above Continue Lasix 40 mg daily, follow renal function No dyspnea, hypoxia, or evidence of pulmonary edema on exam. Continue Rahat bandage and leg elevations as able. SCDs. - BNP pending CKD Stage III GFR 3059 at baseline Lasix recently increased with additional care to lower extremity edema wrapping Follow creatinine daily. 1.0 on admission, at baseline History of ostomy - 2/2 hx of perforated bowel - stable, no acute change. Routine management DVT prophylaxis: Lovenox Diet: Heart healthy Disposition: Medical surgical observation. Pending PT/OT CODE STATUS: DNR/DNI, discussed with patient and at bedside (2) Hx of TIA (transient ischemic attack) and stroke: (3) GERD (gastroesophageal reflux disease): (4) Gait disturbance, post-stroke: (5) CAD (coronary artery disease): (6) Carotid artery stenosis: (7) CKD (chronic kidney disease) stage 3, GFR 30-59 ml/min: (8) Pulmonary nodules: (9) Peripheral neuropathy: (10) Weakness: History of Present Illness Primary Care Provider: Shilpa Parker MD 86yo F who presented with L leg pain. PCP outpatient XR for radiating pain was normal/naf. Hydrocodone to BID PRN for chronic back pain, but this felt different and distal. Ankle/calf tenderness. Doppler for DVT was negative. WBC minimal elevation chronically, no evidence of cellulitis. Leg is very painful with movement. Tib/Fib and femur XR pending. No urinary or sensory stuff. No new back pain. No hip or distally radiating pain. At bedside discussed with the patient she reports that she has had about 6 days of left leg pain which is worst on the medial aspect of her proximal thigh and radiates with tenderness all the way down to her knee. She reports at onset of her pain she was twisting and trying to get into the car and the pain gradually worsened since that time. No snap, pop, crack at onset. Not allowed to take NSAIDs, has taken Tylenol with minimal relief. She does have a history of chronic venous stasis and CAD, denies history of heart failure or pulmonary edema. Her legs have been more slightly swollen and her Lasix was increased from 20 mg to 40 mg as an outpatient and were being treated with leg wraps, which has substantially improved the edema but which still persists above baseline. Denies shortness of breath, difficulty breathing. Overall she has been having progressively worsening global strength, and has had difficulty engaging with physical therapy as an outpatient who she normally sees twice a week. She has a history of chronic back pain, this has not changed. She does not feel any shooting or radiating pain down the back of her calf or which starts in the back. She has not had a loss of sensation in the thighs, or any change in bowel/bladder function. She has been taking hydrocodone twice daily for her pain in addition to Tylenol with some relief. She was unable to have physical therapy evaluations completed for admission to rehab, her notes that while Christi would like to go home she has been progressively worsening and has not been succeeding with outpatient physical therapy. PE:Medical Knee/Thigh. Medical History: Reviewed Medications: Reviewed Surgical History: Reviewed Allergies: Reviewed Social History: No MM, Etoh, tobacco Code Status: Surrogate DM [phone] Cipriano (). DNR/DNI. Allergies Allergy/AdvReac Type Severity Reaction Status Date / Time vancomycin Allergy Intermediate rash Verified 10/01/21 12:29 diphenhydramine Allergy Mild Redness Verified 10/01/21 12:29 amoxicillin [From Augmentin] Allergy Unknown Verified 10/01/21 12:29 clavulanic acid Allergy Unknown Unknown Verified 10/01/21 12:29 codeine Allergy Unknown Unknown Verified 10/01/21 12:29 Home Medications Medication Instructions Recorded Confirmed Type aspirin 81 mg tablet,delayed 81 mg PO QAM 11/22/17 10/01/21 History release (Arin Low Dose Aspirin) qsgsabff-jec-gvicc acid 0.4 1 tab PO QAM 05/30/18 10/01/21 History mg-lycopene 300 mcg-lutein 250 mcg tablet (Centrum Silver) nitroglycerin 0.4 mg sublingual 0.4 mg sublingual UD PRN Chest Pain 07/21/18 10/01/21 History tablet acetaminophen 500 mg tablet 500 mg PO Q4H PRN Pain 04/24/20 10/01/21 History cholecalciferol (vitamin D3) 25 1,000 unit PO DAILY 04/24/20 10/01/21 History mcg (1,000 unit) capsule polyethylene glycol 3350 17 17 g PO DAILY #510 grams 08/18/20 10/01/21 Rx gram/dose oral powder (Gavilax) Wheelchair (Manual) (Manual #1 ea 03/02/21 10/01/21 Rx Wheelchair) ostomy supplies 2 3/4" (New Image #30 ea 04/07/21 10/01/21 Rx Skin Barrier-Flange) escitalopram oxalate 5 mg tablet 5 mg PO DAILY #90 tabs 05/04/21 10/01/21 Rx (Lexapro) metoprolol succinate 25 mg 25 mg PO HS #90 tabs 05/04/21 10/01/21 Rx tablet,extended release 24 hr clopidogrel 75 mg tablet 75 mg PO QAM #30 tabs 05/12/21 10/01/21 Rx levothyroxine 25 mcg tablet 25 mcg PO QAM #90 tabs 05/12/21 10/01/21 Rx colostomy bags 2 3/4" (New Image #30 ea 07/15/21 10/01/21 Rx Drainable Lock N Roll) losartan 100 mg tablet 100 mg PO DAILY #30 tabs 08/23/21 10/01/21 Rx oxybutynin chloride 10 mg 10 mg PO DAILY #30 tabs 08/23/21 10/01/21 Rx tablet,extended release 24 hr atorvastatin 40 mg tablet 40 mg PO QAM #90 tabs 09/23/21 10/01/21 Rx mirabegron 50 mg tablet,extended 50 mg PO DAILY #30 tabs 09/23/21 10/01/21 Rx release 24 hr (Myrbetriq) furosemide 40 mg tablet 40 mg PO DAILY PRN edema #90 tabs 10/01/21 10/01/21 Rx hydrocodone 5 mg-acetaminophen 325 1 tab PO BID PRN Pain #100 tabs 10/01/21 10/01/21 Rx mg tablet mecobalamin (vitamin B12) 1,000 1,000 mcg sublingual DAILY 10/01/21 10/01/21 History mcg disintegrating tablet,sublingual Past Med/Surg History Medical History Breast cancer CAD (coronary artery disease) NSTEMI in 08/2017; 2 JOHN to LAD and 1 to LCx Carotid artery stenosis Cataract Cerebrovascular disease CKD (chronic kidney disease) stage 3, GFR 30-59 ml/min Diverticulitis Diverticulosis of colon Hemiparesis 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 History of cardioembolic cerebrovascular accident (CVA) History of cerebrovascular accident History of open sigmoidectomy Hypercholesterolemia Hypertension Hypertensive crisis Hypothyroidism Impaired fasting glucose Lumbago Non-hemorrhagic cerebrovascular accident (CVA) Pancreatitis Perforated bowel Pseudoaneurysm Sciatic leg pain Secondary thrombocytosis Spherocytosis, hereditary Spinal stenosis, 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 Urinary symptom or sign Surgical History Colostomy in place History of arthroscopy of right knee History of breast surgery History of section History of section History of cholecystectomy History of colectomy History of colonoscopy History of colposcopy History of dilation and curettage History of knee replacement History of lumpectomy History of splenectomy History of splenectomy History of tonsillectomy and adenoidectomy History of tubal ligation Hx of cholecystectomy S/P angioplasty with stent Status post breast lumpectomy Family History Unknown Heart disease Diabetes Breast cancer Uncle Colorectal cancer Mother , age 54 of complications post splenectomy No problems noted. Father , age 89 of heart issues Heart disease Myocardial infarction Brother Prostate cancer Myocardial infarction Denies family history of Ovarian cancer Social History Smoking Status: Never smoker Second Hand Exposure: Yes; Hx Alcohol Use: No Hx Substance Use: No Preferred Language: Y[place] Communication Ability: Effective Visual Impairment: Limited Hearing Ability: Normal Biological Science Aide Required: No Beliefs That Will Affect Care: None marital status: Current Living Situation: Custodial Current Living Situation Comment: states her and her went to detention after broke his leg current occupational status: retired 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 Cooperative. Obese HEENT: Atraumatic, normocephalic. Vision and hearing intact Pulm: Lungs distant due to body habitus, but grossly CTAB A&P. -wheezes, -rales, -rhonchi. Symmetrical chest rise. No increase in work of breathing. No respiratory distress. Cardiac: RRR, -mrg. Radial pulses intact and symmetrical. JVD assessment difficult due to neck circumference, but no obvious JVD is appreciated Abdominal: Nontender, nondistended, soft. BS present. Left lower quadrant ostomy bag in place, no surrounding erythema. Small amount of brown drainage. Extremities: LEFT proximal thigh tender along the entire medial length to palpation including the medial joint line, and abduction of the leg against resistance is 3/5 and which reproduces and is limited by her pain. R thigh abduction 4-/5. Passive abduction does not cause pain, passive knee flexion does not cause pain. Ankle rosiflexion 4+/5 bilat. Bilateral lower extremity edema is present. Sensation of soft touch is intact in hands and feet without asymmetry. Right manager of financial strength and elbow flexion 4 -/5, left manager of financial strength and elbow flexion 5/5 Results & Data Results & Data ([facility]) Vital Signs (Past 12 Hours) Vital Signs Temp Pulse Pulse Resp BP BP Pulse Ox 10/06/21 13:56 68 20 147/78 H 97 10/06/21 12:41 71 18 141/67 H 95 10/06/21 11:20 16 98 10/06/21 11:20 36.7 C 71 16 138/84 95 O2 Del Method 10/06/21 13:56 Room Air 10/06/21 12:41 Room Air 10/06/21 11:20 Room Air 10/06/21 11:20 Room Air PG Care Time/CCT Total # of Minutes Spent Total Time Spent with Patient: Total time spent is greater than 50% in coordination of care (as documented) at patient's floor/unit and/or counseling patient: Coding Level of Care Code INT OBSERVATION CARE 50M LVL 2 Diagnoses Leg pain M79.606 Hx of TIA (transient ischemic attack) and stroke Z86.73 GERD (gastroesophageal reflux disease) K21.9 Esophagitis presence: without esophagitis Gait disturbance, post-stroke I69.398; R26.9 CAD (coronary artery disease) I25.10 Coronary Disease-Associated Artery/Lesion type: unspecified vessel or lesion type [place] vs. transplanted heart: [place] heart Associated angina: without angina Carotid artery stenosis I65.29 CKD (chronic kidney disease) stage 3, GFR 30-59 ml/min N18.32 Chronic kidney disease stage 3 subtype: stage 3b (GFR 30-44) Pulmonary nodules R91.8 Peripheral neuropathy G62.9 Weakness R53.1 (1) GERD (gastroesophageal reflux disease) Esophagitis presence: without esophagitis Qualified Code(s): K21.9 - Gastro- esophageal reflux disease without esophagitis (2) CAD (coronary artery disease) Coronary Disease-Associated Artery/Lesion type: unspecified vessel or lesion type [place] vs. transplanted heart: [place] heart Associated angina: without angina Qualified Code(s): I25.10 - Atherosclerotic heart disease of [place] coronary artery without angina pectoris (3) CKD (chronic kidney disease) stage 3, GFR 30-59 ml/min Chronic kidney disease stage 3 subtype: stage 3b (GFR 30-44) Qualified Code(s): N18.32 - Chronic kidney disease, stage 3b
--- NOTE | 2021-10-06 15:03 | Emergency Department Note ---
Impression & Plan Acute pain of left lower extremity ED Provider Note INFORMANT: Patient and ED PROVIDER(S): Toney Seay MD CHIEF COMPLAINT: Left leg pain PLAN: Disposition: Admitted Condition: Good Outpatient prescription management: none Referral: None MEDICAL DECISION MAKING: Patient presented with acute left leg pain. She had x-ray imaging done as an outpatient which was negative for the ankle. There is no signs of infection that was obvious on physical examination. There was concern for possible DVT. Patient did have a perfusing pulse. She underwent ultrasound imaging and this was negative. Blood work revealed a subtle leukocytosis but record review indicates she is had this numerous times before. The patient had an unremarkable chemistry panel. She did receive a dose of IV Dilaudid and Zofran. She did feel better with this however still had significant pain in the leg. and patient were concerned about her ability to ambulate safely. I discussed options which included inpatient rehab as well as admission here. Unfortunately after discussion with the employment evaluator/case manager, the patient cannot go directly to inpatient rehab and will need treatment and evaluation here first. Patient and were comfortable with that plan. I did consult with the [facility]. Patient was evaluated in the ER for further management and consultation. I did order x-ray imaging for the femur and lower leg to assist with the inpatient evaluation. Triage Nursing notes reviewed and agree them. Vital Signs: reviewed and remarkable for no significant abnormalities Differential diagnosis: DVT, musculoskeletal, infection, joint effusion, trauma, lymphedema, idiopathic, CHF, as well as other pathologies. Diagnostics interpreted by me: ECG: none Imaging studies: X-ray imaging of the left lower leg is pending. Ultrasound imaging of the left leg is negative for acute DVT. HPI: The patient is a 86year old female who presents to the Emergency Room with complaints of left leg pain. This started last week and is worsening. Patient and note that she is having difficulty ambulating because of the pain. Pain started initially in the left ankle. She was getting out of a vehicle and over the course of the following days it seemed to radiate upward toward the calf and into the knee. Denies any falls. The patient also notes the following associated symptoms, none. Outpatient x-ray imaging of the left ankle was negative for traumatic injury.. The patient has been using occasional hydrocodone for relieving factors. Current pain is rated as 8/10. Patient has chronic back pain but states that there is no pain radiating from the back down to the leg. She has had no erythema or redness to the skin pt denies LOC, headache, fevers, chills, diaphoresis, visual changes, neck pain, chest pain, breathing difficulties, nausea, vomiting, abdominal pain, back pain, melena, hematochezia, urinary symptoms, numbness, weakness, lymphadenopathy, rash, or other complaints. ROS: See above HPI for pertinent positives & negatives. A total of 10 systems reviewed and were otherwise negative. PAST MEDICAL HISTORY:See Below , TIA, chronic back pain PAST SURGICAL HISTORY:See Below, FAMILY HISTORY:See Below SOCIAL HISTORY:See Below, HOME MEDICATIONS:See Below ALLERGIES:See Below VITALS:See Below PHYSICAL EXAMINATION: GENERAL: Awake, alert, uncomfortable-appearing, in no distress HENT: Normocephalic, atraumatic. Oropharynx unremarkable. EYES: Normal conjunctiva. Sclera non-icteric. NECK: Inspection normal. Non-tender. Supple. No nuchal rigidity. FROM. No masses. RESPIRATORY: Clear to auscultation. No wheezes. No rales. Normal respiratory effort. CARDIAC: Normal rate. Normal rhythm. No murmurs. No rubs. Extremities warm and well perfused. Pulses equal. No JVD. GI: Soft, non-distended. No tenderness to palpation. No rebound or guarding. No masses. RECTAL: Deferred. MUSCULOSKELETAL: Atraumatic. Chest examination reveals no tenderness. The back is symmetrical on inspection without obvious abnormality. There is no CVA tenderness to palpation. No joint edema. LOWER EXTREMITIES: Calves are equal size bilaterally and the left 1 is tender. Trace edema. No discoloration. There is mild tenderness about the left ankle without significant edema. Range of motion of the left knee is limited secondary to pain that is diffusely associated with the lower leg and distal thigh. Hip is nontender. NEURO: Normal sensorium. No sensory or motor deficits noted. SKIN: No rash or jaundice noted. Toney Seay MD Past Med/Surg History Medical History (Updated 10/06/21 @ 15:03 by Toney Seay MD) Breast cancer CAD (coronary artery disease) NSTEMI in 08/2017; 2 JOHN to LAD and 1 to LCx Carotid artery stenosis Cataract Cerebrovascular disease CKD (chronic kidney disease) stage 3, GFR 30-59 ml/min Diverticulitis Diverticulosis of colon Hemiparesis 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 History of cardioembolic cerebrovascular accident (CVA) History of cerebrovascular accident History of open sigmoidectomy Hypercholesterolemia Hypertension Hypertensive crisis Hypothyroidism Impaired fasting glucose Lumbago Non-hemorrhagic cerebrovascular accident (CVA) Pancreatitis Perforated bowel Pseudoaneurysm Sciatic leg pain Secondary thrombocytosis Spherocytosis, hereditary Spinal stenosis, 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 Urinary symptom or sign Surgical History Colostomy in place History of arthroscopy of right knee History of breast surgery History of section History of section History of cholecystectomy History of colectomy History of colonoscopy History of colposcopy History of dilation and curettage History of knee replacement History of lumpectomy History of splenectomy History of splenectomy History of tonsillectomy and adenoidectomy History of tubal ligation Hx of cholecystectomy S/P angioplasty with stent Status post breast lumpectomy Family History Unknown Heart disease Diabetes Breast cancer Uncle Colorectal cancer Mother No problems noted. Father Heart disease Myocardial infarction Brother Prostate cancer Myocardial infarction Denies family history of Ovarian cancer Social History Smoking Status: Never smoker Second Hand Exposure: Yes; Hx Alcohol Use: No Hx Substance Use: No Preferred Language: Latvian Communication Ability: Effective Visual Impairment: Limited Hearing Ability: Normal Ladies Locker Room Attendant Required: No Beliefs That Will Affect Care: None marital status: Current Living Situation: [facility] Current Living Situation Comment: states her and her went to skilled nursing after broke his leg current occupational status: retired 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 How many Children do You have: 3 Feels Safe at Home: Yes Childhood Exposure to Second-Hand Smoke: Yes caffeine: Yes Dental Care, Regularly: No Seatbelt Use: always Sunscreen Use: Yes Gender Identity: Female Assistive Devices: Denture - Lower, Glasses and Wheelchair Allergies Allergies Allergy/AdvReac Type Severity Reaction Status Date / Time vancomycin Allergy Intermediate rash Verified 10/01/21 12:29 diphenhydramine Allergy Mild Redness Verified 10/01/21 12:29 amoxicillin [From Augmentin] Allergy Unknown Verified 10/01/21 12:29 clavulanic acid Allergy Unknown Unknown Verified 10/01/21 12:29 codeine Allergy Unknown Unknown Verified 10/01/21 12:29 Home Meds Home Medications Medication Instructions Recorded Confirmed aspirin 81 mg tablet,delayed 81 mg PO QAM 11/22/17 10/01/21 release (Arin Low Dose Aspirin) [id number] acid 0.4 1 tab PO QAM 05/30/18 10/01/21 mg-lycopene 300 mcg-lutein 250 mcg tablet (Centrum Silver) nitroglycerin 0.4 mg sublingual 0.4 mg sublingual UD PRN Chest Pain 07/21/18 0 10/01/21 tablet acetaminophen 500 mg tablet 500 mg PO Q4H PRN Pain 04/24/20 10/01/21 cholecalciferol (vitamin D3) 25 1,000 unit PO DAILY 04/24/20 10/01/21 mcg (1,000 unit) capsule mecobalamin (vitamin B12) 1,000 1,000 mcg sublingual DAILY 10/01/21 10/01/21 mcg disintegrating tablet,sublingual Previous Rx's Medication Instructions Recorded polyethylene glycol 3350 17 17 g PO DAILY #510 grams 08/18/20 gram/dose oral powder (Gavilax) Wheelchair (Manual) (Manual #1 ea 03/02/21 Wheelchair) ostomy supplies 2 3/4" (New Image #30 ea 04/07/21 Skin Barrier-Flange) escitalopram oxalate 5 mg tablet 5 mg PO DAILY #90 tabs 05/04/21 (Lexapro) metoprolol succinate 25 mg 25 mg PO HS #90 tabs 05/04/21 tablet,extended release 24 hr clopidogrel 75 mg tablet 75 mg PO QAM #30 tabs 05/12/21 levothyroxine 25 mcg tablet 25 mcg PO QAM #90 tabs 05/12/21 colostomy bags 2 3/4" (New Image #30 ea 07/15/21 Drainable Lock N Roll) losartan 100 mg tablet 100 mg PO DAILY #30 tabs 08/23/21 oxybutynin chloride 10 mg 10 mg PO DAILY #30 tabs 08/23/21 tablet,extended release 24 hr atorvastatin 40 mg tablet 40 mg PO QAM #90 tabs 09/23/21 mirabegron 50 mg tablet,extended 50 mg PO DAILY #30 tabs 09/23/21 release 24 hr (Myrbetriq) furosemide 40 mg tablet 40 mg PO DAILY PRN edema #90 tabs 10/01/21 hydrocodone 5 mg-acetaminophen 325 1 tab PO BID PRN Pain #100 tabs 10/01/21 mg tablet Results & Data (ED) Vital Signs Vital Signs - 24 hr 10/06/21 11:20 10/06/21 11:20 10/06/21 12:41 Temperature 36.7 C Temperature Source Oral Pulse Rate 71 Pulse Rate [Apical] 71 Pulse Rhythm Regular Pulse Rhythm [Apical] Regular Pulse Strength Normal Pulse Strength [Apical] Normal Respiratory Rate 16 16 18 Respiratory Effort / Characteristics Non-Labored Non-Labored Non-Labored Respiratory Depth Normal Normal Normal Respiratory Pattern Regular Regular Regular Blood Pressure 138/84 Blood Pressure [Left Arm] 141/67 H Blood Pressure Mean 102 Blood Pressure Mean [Left Arm] 91 Blood Pressure Position Lying Blood Pressure Position [Left Arm] Pulse Oximetry 95 98 95 Oxygen Delivery Method Room Air Room Air Room Air Sepsis Recent Fever Within 48 Hours No Sepsis New/Unexplained Change in Mental Status No Sepsis Action Taken by Nursing No Action Required 10/06/21 13:56 Temperature Temperature Source Pulse Rate Pulse Rate [Apical] 68 Pulse Rhythm Pulse Rhythm [Apical] Regular Pulse Strength Pulse Strength [Apical] Normal Respiratory Rate 20 Respiratory Effort / Characteristics Non-Labored Spontaneous Respiratory Depth Normal Respiratory Pattern Blood Pressure Blood Pressure [Left Arm] 147/78 H Blood Pressure Mean Blood Pressure Mean [Left Arm] 101 Blood Pressure Position Blood Pressure Position [Left Arm] Lying Pulse Oximetry 97 Oxygen Delivery Method Room Air Sepsis Recent Fever Within 48 Hours Sepsis New/Unexplained Change in Mental Status Sepsis Action Taken by Nursing Laboratory Data Result diagrams: 10/06/21 12:30 10/06/21 12:30 Lab Results 10/06/21 10/06/21 10/06/21 Range/Units 12:30 12:30 12:30 WBC 11.26 H (4.8-10.8) K/ul RBC 4.06 (3.93-5.22) M/uL Hgb 12.4 (12.0-16.0) g/dl Hct 38.1 (34.1-44.9) % MCV 93.8 (80.0-100.0) fL MCH 30.5 (25.0-34.0) pg MCHC 32.5 (32.0-36.0) g/dL RDW Std Deviation 46.5 H (36.4-46.3) fL RDW Coeff of Roberto 13.4 (11.5-14.5) % Plt Count 443 H (130-400) K/uL MPV 9.8 (9.4-12.3) fL Immature Gran % (Auto) 0.4 % Neut % (Auto) 63.9 % Lymph % (Auto) 25.2 % Benzie % (Auto) 7.6 % Eos % (Auto) 2.2 % Baso % (Auto) 0.7 % Neut # (Auto) 7.18 H (1.4-6.5) K/uL Lymph # (Auto) 2.84 (1.2-3.4) K/uL Benzie # (Auto) 0.86 H (0.24-0.82) K/uL Eos # (Auto) 0.25 (0-0.50) K/uL Baso # (Auto) 0.08 (0-0.2) K/uL Immature Gran # (Auto) 0.05 H (0.00-0.02) K/uL PT 10.4 (9.0-12.0) Seconds INR 1.0 (0.9-1.1) APTT 27.1 (21.0-31.0) Seconds PTT Ratio 1.0 Sodium 138 (136-145) mmol/L Potassium 4.1 (3.5-5.1) mmol/L Chloride 101 (98-107) mmol/L Carbon Dioxide 32 (21-32) mmol/L Anion Gap 5 (3-11) BUN 31 H (6-23) mg/dl Creatinine 1.00 (0.6-1.2) mg/dl Est Cr Clr Drug Dosing 44.0 ml/min Est GFR ( Amer) 59.9 ml/min Est GFR (Non-Af Amer) 51.7 ml/min BUN/Creatinine Ratio 31.0 H (10-20) Glucose 135 H (70-99(Fasting)) mg/dl Uric Acid 8.4 H (2.6-7.2) mg/dl Calcium 9.3 (8.5-10.1) mg/dl Total Bilirubin 0.4 (0.2-1.0) mg/dl AST 22 (13-39) U/L ALT 11 (7-52) U/L Alkaline Phosphatase 83 (34-104) U/L Total Protein 7.1 (6.0-8.3) gm/dl Albumin 3.5 (3.4-5.0) gm/dl Globulin 3.6 (2.5-4.0) gm/dl Albumin/Globulin Ratio 1.0 (0.9-2) Administered Medications Discontinued Medications Hydromorphone HCl (Hydromorphone Inj 0.5 Mg/0.5 Ml Syr) 0.25 mg IV NOW STA Stop: 10/06/21 12:10 Last Admin: 10/06/21 12:37 Dose: 0.25 mg Documented By: SR Ondansetron HCl (Ondansetron Inj 2 Mg/Ml 2 Ml Vial) 4 mg IV NOW STA Stop: 10/06/21 12:10 Last Admin: 10/06/21 12:37 Dose: 4 mg Documented By: SR Imaging Data Radiologist's Impression: Venous Doppler Study 10/06/21 12:03 ULTRASOUND LEFT LOWER EXTREMITY VENOUS CLINICAL HISTORY: Left leg pain. COMPARISON STUDY: Left lower extremity venous ultrasound dated 12/10/2019. TECHNIQUE: Real-time, grayscale, and color Doppler sonography of the deep veins of the left lower extremity was performed from the inguinal crease to the calf. Compression and augmentation were utilized. FINDINGS: There is no sonographic evidence of deep venous thrombosis identified in the left lower extremity. The common femoral, superficial femoral, and popliteal veins are patent and normally compressible. The greater saphenous vein and the profunda femoris vein at the junction with the common femoral vein are clear. The visualized calf veins are patent. IMPRESSION: There is no sonographic evidence of deep venous thrombosis identified in the left lower extremity. ACT 112: Negative or not required by law. Electronically signed by: Valdemar Guido M.D. 10/06/2021 2:03 PM Discharge Plan Visit Data Chief Complaint: Leg Injury/Pain ED Provider: Toney Seay Discharge Problem: Acute pain of left lower extremity Forms Stand Alone Forms: [place] Prescriptions Prescriptions: No Action polyethylene glycol 3350 [Gavilax] 17 gram/dose powder 17 g PO DAILY Qty: 510 1RF Rx Instructions: USE 17 GRAMS BY MOUTH DAILY (DME) Manual Wheelchair Device See Rx Instructions .Route Qty: 1 0RF Rx Instructions: As directed (DME) New Image Skin Barrier-Flange 2 3/4 " misc See Dose Instructions .ROUTE .MEDSUPPLY Qty: 30 11RF Dose Instruction: As directed Rx Instructions: Change every 3 days Dx:Z93.3;R32;Z86.73 escitalopram oxalate [Lexapro] 5 mg tablet 5 mg PO DAILY Qty: 90 1RF metoprolol succinate 25 mg tablet extended release 24 hr 25 mg PO HS Qty: 90 3RF clopidogrel 75 mg tablet 75 mg PO QAM Qty: 30 5RF levothyroxine 25 mcg tablet 25 mcg PO QAM Qty: 90 1RF (DME) New Image Drainable Lock N Rol 2 3/4 " misc See Dose Instructions .ROUTE .MEDSUPPLY Qty: 30 11RF Dose Instruction: As directed Rx Instructions: Change colostomy bags 1-2 times Daily losartan 100 mg tablet 100 mg PO DAILY Qty: 30 5RF oxybutynin chloride 10 mg tablet extended release 24 hr 10 mg PO DAILY Qty: 30 2RF atorvastatin 40 mg tablet 40 mg PO QAM Qty: 90 3RF Myrbetriq 50 mg tablet extended release 24 hr 50 mg PO DAILY Qty: 30 5RF mecobalamin (vitamin B12) 1,000 mcg tablet,disintegrating 1,000 mcg sublingual DAILY Rx Instructions: place tablet under tongue and allow to dissolve for at least30 secs before swallowing furosemide 40 mg tablet 40 mg PO DAILY PRN (Reason: edema) Qty: 90 3RF hydrocodone-acetaminophen 5-325 mg tablet 1 tab PO BID PRN (Reason: Pain) Qty: 100 0RF cholecalciferol (vitamin D3) 25 mcg (1,000 unit) capsule 1,000 unit PO DAILY acetaminophen 500 mg tablet 500 mg PO Q4H PRN (Reason: Pain) aspirin [Arin Low Dose Aspirin] 81 mg Tablet,Delayed Release (Dr/Ec) 81 mg PO QAM nitroglycerin 0.4 mg tablet, sublingual 0.4 mg sublingual UD PRN (Reason: Chest Pain) Centrum Silver 0.4-300-250 mg-mcg-mcg Tablet 1 tab PO QAM Referrals Referrals: Shilpa Parker MD [Primary Care Provider] -
--- NOTE | 2021-10-06 16:12 | XRay Report ---
XR femur LT 2V routine CLINICAL HISTORY: Lower leg pain. COMPARISON: Left femur radiographs December 10, 2019. CT of the abdomen and pelvis March 10, 2020. FINDINGS: Left lower quadrant ostomy is incidentally noted. There is extensive vascular calcificatio n. No acute fracture within the left femur is identified. There is no osseous lesion. Alignment of th e left hip and left knee is anatomic. There is a small left knee joint effusion. Chondrocalcinosis wi thin the menisci of the left knee is noted. There is joint space narrowing. Left lateral thigh soft t issue swelling is present. IMPRESSION: 1. No acute fracture within the left femur. 2. Small left knee joint effusion. Left lateral thigh soft tissue swelling. ACT 112: Negative or not required by law. Electronically signed by: Wilberto Weller M.D. 10/06/2021 4:11 PM
--- NOTE | 2021-10-06 16:14 | XRay Report ---
XR tibia fibula LT 2V CLINICAL HISTORY: leg pain COMPARISON: Left knee radiographs December 10, 2019. FINDINGS: No acute fracture within the left tibia or fibula is identified. There is vascular calcifi cation. Small left knee joint effusion is present. Posterior calcaneal spurring is noted. Left lower leg soft tissue swelling is present. IMPRESSION: No fracture within the left tibia or fibula. ACT 112: Negative or not required by law. Electronically signed by: Wilberto Weller M.D. 10/06/2021 4:13 PM
[2021-10-06] MEDS ORDERED: ACETAMINOPHEN 325 MG TAB PO PRN (20:14)
[2021-10-06] MEDS ORDERED: METOPROLOL SUCC 25MG EXT REL TAB PO SCH (21:00)
[2021-10-06] MEDS: DICLOFENAC SOD 1% GEL 100 GM TUBE EXT SCH (21:38)
[2021-10-06] MEDS: HYDROCODONE/ACETAMOPHEN 5/325MG TAB PO PRN (22:55)
[2021-10-07] MEDS ORDERED: LEVOTHYROXINE SODIUM 25 MCG TABLET PO SCH (06:30)
[2021-10-07 08:04] LABS: Basophils # (auto) 0.08 K/uL (0-0.2); Basophils % (auto) 0.7 %; Eosinophils # (auto) 0.35 K/uL (0-0.50); Eosinophils % (auto) 3.2 %; Hematocrit (blood only) 35.8 % (34.1-44.9); Hemoglobin 11.7 g/dl (12.0-16.0); Immature Granulocytes # (auto) 0.04 K/uL (0.00-0.02); Immature Granulocytes % (auto) 0.4 %; Lymphocytes # (auto) 2.47 K/uL (1.2-3.4); Lymphocytes % (auto) 22.8 %; Mean Corpuscular Hemoglobin 30.7 pg (25.0-34.0); Mean Corpuscular Hgb Conc 32.7 g/dL (32.0-36.0); Mean Platelet Volume 9.4 fL (9.4-12.3); Monocytes # (auto) 0.95 K/uL (0.24-0.82); Monocytes % (auto) 8.8 %; Neutrophils # (auto) 6.96 K/uL (1.4-6.5); Neutrophils % (auto) 64.1 %; Platelet Count 412 K/uL (130-400); RDW Coefficient of Variation 13.5 % (11.5-14.5); RDW Standard Deviation 46.1 fL (36.4-46.3); Red Blood Count 3.81 M/uL (3.93-5.22); White Blood Count 10.85 K/ul (4.8-10.8)
[2021-10-07 08:35] LABS: BUN Creatinine Ratio 30.5 (10-20); Calcium 8.9 mg/dl (8.5-10.1); Est GFR (Non-African American) 42.3 ml/min; Potassium 4.2 mmol/L (3.5-5.1)
[2021-10-07] MEDS ORDERED: OXYBUTYNIN CHLORIDE XL 5 MG TABCR PO SCH (09:00)
[2021-10-07] MEDS ORDERED: MIRABEGRON ER 25 MG TAB PO SCH (09:00)
[2021-10-07] MEDS ORDERED: LOSARTAN POTASSIUM 50 MG TAB PO SCH (09:00)
[2021-10-07] MEDS ORDERED: ATORVASTATIN 40 MG TAB PO SCH (09:00)
[2021-10-07] MEDS ORDERED: FUROSEMIDE 40 MG TAB PO SCH (09:00)
[2021-10-07] MEDS ORDERED: ASPIRIN 81 MG ECTAB PO SCH (09:00)
[2021-10-07] MEDS ORDERED: ESCITALOPRAM OXALATE 10 MG TAB PO SCH (09:00)
[2021-10-07] MEDS ORDERED: POLYETHYLENE (MIRALAX) 17 GM PACK PO SCH (09:00)
[2021-10-07] MEDS ORDERED: CLOPIDOGREL BISULFATE 75 MG TAB PO SCH (09:00)
[2021-10-07] MEDS: DICLOFENAC SOD 1% GEL 100 GM TUBE EXT SCH ×2 (09:06→13:44)
[2021-10-07] MEDS: HYDROCODONE/ACETAMOPHEN 5/325MG TAB PO PRN (09:42)
--- NOTE | 2021-10-07 21:37 | Discharge Summary ---
Date of Service October 07, 2021 Admission HPI Per Admitting Provider 86yo F who presented with L leg pain. PCP outpatient XR for radiating pain was normal/naf. Hydrocodone to BID PRN for chronic back pain, but this felt different and distal. Ankle/calf tenderness. Doppler for DVT was negative. WBC minimal elevation chronically, no evidence of cellulitis. Leg is very painful with movement. Tib/Fib and femur XR pending. No urinary or sensory stuff. No new back pain. No hip or distally radiating pain. At bedside discussed with the patient she reports that she has had about 6 days of left leg pain which is worst on the medial aspect of her proximal thigh and radiates with tenderness all the way down to her knee. She reports at onset of her pain she was twisting and trying to get into the car and the pain gradually worsened since that time. No snap, pop, crack at onset. Not allowed to take NSAIDs, has taken Tylenol with minimal relief. She does have a history of chronic venous stasis and CAD, denies history of heart failure or pulmonary edema. Her legs have been more slightly swollen and her Lasix was increased from 20 mg to 40 mg as an outpatient and were being treated with leg wraps, which has substantially improved the edema but which still persists above b aseline. Denies shortness of breath, difficulty breathing. Overall she has been having progressively worsening global strength, and has had difficulty engaging with physical therapy as an outpatient who she normally sees twice a week. She has a history of chronic back pain, this has not changed. She does not feel any shooting or radiating pain down the back of her calf or which starts in the back. She has not had a loss of sensation in the thighs, or any change in bowel/bladder function. She has been taking hydrocodone twice daily for her pain in addition to Tylenol with some relief. She was unable to have physical therapy evaluations completed for admission to rehab, her notes that while Christi would like to go home she has been progressively worsening and has not been succeeding with outpatient physical therapy. PE:Medical Knee/Thigh. Medical History: Reviewed Medications: Reviewed Surgical History: Reviewed Allergies: Reviewed Social History: No MM, Etoh, tobacco Code Status: Surrogate DM [phone] Cipriano (). DNR/DNI. Principal Diagnosis Knee pain with effusionmost likely OA flareup. Abductor strain. Discharge Exam In general she is awake and alert pleasant no distress. HEENT normocephalic atraumatic mucous membranes moist. Breathing unlabored no accessory muscle use good effort. Skin shows no rashes no pallor or icterus. Left knee with palpable effusion, no erythema it is not very warm her medial knee is quite tender, as are her abductor muscles, no erythema no crepitus no fluctuance. Discharge Data Allergies Allergy/AdvReac Type Severity Reaction Status Date / Time vancomycin Allergy Intermediate rash Verified 10/01/21 12:29 diphenhydramine Allergy Mild Redness Verified 10/01/21 12:29 amoxicillin [From Augmentin] Allergy Unknown Verified 10/01/21 12:29 clavulanic acid Allergy Unknown Unknown Verified 10/01/21 12:29 codeine Allergy Unknown Unknown Verified 10/01/21 12:29 Consultations 10/06/21 14:28 ED Decision to Admit Stat Ordered Studies 10/06/21 12:03 US venous doppler LE LT Stat Hospital Course (1) Leg pain: Christi is an 86-year-old female with a medical history of CAD with PCI, hypertension, hyperlipidemia, CVA/TIA, chronic right-sided weakness, CKD 3, bowel perforation with colostomy, parastomal hernia, spherocytosis with splenectomy, and urinary incontinence who presents with left medial thigh pain and continued worsening of her weakness. Left leg pain, most likely knee osteoarthritis flare as well as adductor strain Has rehab bed. Medically stable for rehab. For now given that clinically it looks most consistent with an OA flare and surrounding muscle strainswould manage as such. PT/OT, Voltaren gel, supportive care. If she fails to progress, can consider further imaging such as MRI, or orthopedics evaluation.. CVD History of TIAs and cerebrovascular disease with strong suspicion for small vessel disease with vasospasm versus TIAs With residual right-sided arm and leg weakness Has followed with neurology as outpatient, last visit in April. Recommended continuing on ASA/Plavix/hypertensive management and/statin and continuing to follow with physical therapy No history of diabetes No new focal neurologic deficits Continue outpatient medications as noted Hypothyroidism Continue Synthroid 25 mcg daily Outpatient follow-up CAD History of apical NSTEMI, LAD with JOHN x2, LCx JOHN 201 TTE 2020: EF 55 to 60%, mild AI No chest pain or anginal symptoms Continue aspirin/Plavix Continue statin Continue losartan Continue metoprolol Chronic venous stasis Patient denies any history of heart failure. Does follow with cardiology for CAD and a history of apical NSTEMI, LAD with JOHN x2, LCx JOHN 2018. DDx does include heart failure with diastolic dysfunction, but suspect her bilateral edema is also related to sedentary lifestyle and poor mobility. No exertional chest pain/angina/dyspnea but patient very weak and did have a very sedentary lifestyle Echo as above Continue Lasix 40 mg daily, follow renal function No dyspnea, hypoxia, or evidence of pulmonary edema on exam. Continue Rahat bandage and leg elevations as able. SCDs. CKD Stage III GFR 3059 at baseline Lasix recently increased with additional care to lower extremity edema wrapping Follow creatinine periodically 1.0 on admission, at baseline History of ostomy - 2/2 hx of perforated bowel - stable, no acute change. Routine management DVT prophylaxis: Lovenox utilized while here Diet: Heart healthy Disposition: Stable for rehab (2) Hx of TIA (transient ischemic attack) and stroke: (3) GERD (gastroesophageal reflux disease): (4) Gait disturbance, post-stroke: (5) CAD (coronary artery disease): (6) Carotid artery stenosis: (7) CKD (chronic kidney disease) stage 3, GFR 30-59 ml/min: (8) Pulmonary nodules: (9) Peripheral neuropathy: (10) Weakness: Total Time Total Time Spent Total Time Spent (In Minutes): Less than 30 Discharge Plan Discharge Items Patient Disposition: Transfer Inpatient Rehab Fac Reason For Visit: LEG PAIN, WEAKNESS Discharge Diagnosis: leg pain - see below Activity: Per Instructions section Activity Comment: per PT/OT Non-emergency contact: Primary Care Provider Call non-emergency contact if: you have any medication questions and your symptoms worsen Follow-up/Referrals: Shilpa Parker MD [Primary Care Provider] - Diet: Low Sodium (2gm) Addtl Attending Provider Instructions: Knee pain -With no DVT, and no fractures/dislocations identified, as well as physical examappears to predominantly be osteoarthritis with an effusion, as well as predominantly abductor muscle strain. -Current treatment plan is pain control, conservative care, PT/OT -Obviously, if things worsen or fail to improve, or the effusion itself worsenscan consider aspiration and/or joint injectionbut did not appear to be warranted at this time -Follow-up CBC/basic metabolic panel 1 to 2 days, then as clinically warranted Pending Studies at Discharge: No Stand-Alone Forms: My [facility] [employer] Skilled Items Patient informed of condition?: Yes DNR: Yes Discharge Level of Care: Acute rehab Communicable Disease: No Discharge Prognosis: Stable Lines: None Urinary Catheter: No Medications and DC Order Prescriptions: New diclofenac sodium [Voltaren Arthritis Pain] 1 % Gel 4 g EXT QID Qty: 100 0RF Continued polyethylene glycol 3350 [Gavilax] 17 gram/dose powder 17 g PO DAILY Qty: 510 1RF Rx Instructions: USE 17 GRAMS BY MOUTH DAILY (DME) Manual Wheelchair Device See Rx Instructions .Route Qty: 1 0RF Rx Instructions: As directed (DME) New Image Skin Barrier-Flange 2 3/4 " misc See Dose Instructions .ROUTE .MEDSUPPLY Qty: 30 11RF Dose Instruction: As directed Rx Instructions: Change every 3 days Dx:Z93.3;R32;Z86.73 escitalopram oxalate [Lexapro] 5 mg tablet 5 mg PO DAILY Qty: 90 1RF metoprolol succinate 25 mg tablet extended release 24 hr 25 mg PO HS Qty: 90 3RF clopidogrel 75 mg tablet 75 mg PO QAM Qty: 30 5RF levothyroxine 25 mcg tablet 25 mcg PO QAM Qty: 90 1RF (DME) New Image Drainable Lock N Rol 2 3/4 " misc See Dose Instructions .ROUTE .MEDSUPPLY Qty: 30 11RF Dose Instruction: As directed Rx Instructions: Change colostomy bags 1-2 times Daily losartan 100 mg tablet 100 mg PO DAILY Qty: 30 5RF oxybutynin chloride 10 mg tablet extended release 24 hr 10 mg PO DAILY Qty: 30 2RF atorvastatin 40 mg tablet 40 mg PO QAM Qty: 90 3RF Myrbetriq 50 mg tablet extended release 24 hr 50 mg PO DAILY Qty: 30 5RF mecobalamin (vitamin B12) 1,000 mcg tablet,disintegrating 1,000 mcg sublingual DAILY Rx Instructions: place tablet under tongue and allow to dissolve for at least30 secs before swallowing furosemide 40 mg tablet 40 mg PO DAILY PRN (Reason: edema) Qty: 90 3RF hydrocodone-acetaminophen 5-325 mg tablet 1 tab PO BID PRN (Reason: Pain) Qty: 100 0RF cholecalciferol (vitamin D3) 25 mcg (1,000 unit) capsule 1,000 unit PO DAILY acetaminophen 500 mg tablet 500 mg PO Q4H PRN (Reason: Pain) aspirin [Arin Low Dose Aspirin] 81 mg Tablet,Delayed Release (Dr/Ec) 81 mg PO QAM nitroglycerin 0.4 mg tablet, sublingual 0.4 mg sublingual UD PRN (Reason: Chest Pain) Centrum Silver 0.4-300-250 mg-mcg-mcg Tablet 1 tab PO QAM Discharge Orders: Discharge Order (Routine); Ordered 10/07/21 Ordered By: West Sanderson Admission Data Admit Date/Time: 10/06/21 18:34 Attending Provider: West Sanderson Admit Provider: Austin Pascal Primary Care Provider: Shilpa Parker Other Providers: Austin Pascal ; [facility] Other Interventions: Discharge Summary Assessment (RN) Last Done: 10/07/21 15:46 Coding Level of Care Code 94385 OBS Care - Discharge Diagnoses Leg pain M79.606 Hx of TIA (transient ischemic attack) and stroke Z86.73 GERD (gastroesophageal reflux disease) K21.9 Esophagitis presence: without esophagitis Gait disturbance, post-stroke I69.398; R26.9 CAD (coronary artery disease) I25.10 Coronary Disease-Associated Artery/Lesion type: unspecified vessel or lesion type [place] vs. transplanted heart: [place] heart Associated angina: without angina Carotid artery stenosis I65.29 CKD (chronic kidney disease) stage 3, GFR 30-59 ml/min N18.32 Chronic kidney disease stage 3 subtype: stage 3b (GFR 30-44) Pulmonary nodules R91.8 Peripheral neuropathy G62.9 Weakness R53.1
== END 2021-10-07 17:03 ==
LOC: ED 11:26 → 3N 11:26 → SUATTDRO 18:34 → 3N 19:52

== ENCOUNTER 2023-11-13 08:11 | Inpatient (IN) ==
--- NOTE | 2023-11-13 08:36 | Emergency Department Note ---
Impression & Plan Urinary tract infection due to extended-spectrum beta lactamase (ESBL) producing Escherichia coli ED Provider Note Name: FLO DYE Age: 88 Sex: Female Arrives Via: Walk-In Informant: Patient, son-in-law. ED Provider: Zack Pierson MD Chief Complaint: UTI symptoms Impression: as per impressions above Medical Decision Making: Pleasant 88-year-old female with recurrent UTI. Arrives with worsening UTI symptoms. Review of chart reveals ESBL UTI about 1 month ago treated with Macrobid. Patient by examination is no significant distress. She is not septic however given ESBL and age I am concerned that Macrobid did not truly treat her previous infection limited p.o. options at this time. I think it is in patient's best interest to bring in for IV antibiotics while determining best strategy for management of this difficult to treat infection. Laboratory workup otherwise is unremarkable. Hospitalist consulted for further management. Triage/Nursing Notes reviewed by Me Differential:UTI, pyelonephritis, sepsis, pelvic infection, diverticulitis amongst many other pathologies considered Vital Signs: reviewed and remarkable for no significant abnormalities Interventions: Ertapenem 1 g IV Labs:ED labs Reviewed by me and remarkable for UA straight cath consistent with UTI Consults:I discussed the case with Dr. Weaver Hospitalist further management Plan: Disposition:Hospitalization. Condition: Good History of Present Illness: 88-year-old female arrives for evaluation of urinary burning. Increased urgency as well. No fevers, chills, nausea, vomiting, abdominal pain, back pain, flank pain or other concerning signs or symptoms. Patient does have a history of dementia and may be slightly more confused or tired than typical but otherwise is at her baseline. She continues to eat and drink well. She is interacting with family and staff at her nursing facility. Patient has a history of a ESBL UTI little over a month ago which she was treated with Macrobid with success. Family notes the patient wears a diaper and sometimes uses a diaper bit longer than she should. Patient has an allergy to Augmentin and vancomycin. Past Medical History:See Below Home Medications:See Below Allergies: Vancomycin, Augmentin, codeine Vitals:Blood Pressure: 129/71, Pulse 72, RR 19, T 36.6C, O2 96% on RA Physical Exam: GENERAL: Patient is elderly appearing and in minimal distress. RESPIRATORY: No dyspnea. Clear to auscultation and equal bilaterally. CARDIOVASCULAR: Regular rate and rhythm.No murmur appreciated. GASTROINTESTINAL: Abdomen soft, non-tender, no peritonitis. EXTREMITIES: Normal motion all extremities, no cyanosis, no edema. NEUROLOGIC: Alert and oriented. No focal neurologic deficits appreciated SKIN: No rash, no jaundice, no diaphoresis. PSYCH: Appropriate GCS: 15 ED Course: Times/Reassessments: Stable and comfortable with plan for hospitalization Zack Pierson MD Past Med/Surg History Problem List (Updated 11/13/23 @ 16:39 by Zack Pierson MD) Urinary tract infection due to extended-spectrum beta lactamase (ESBL) producing Escherichia coli (Acute) Age-related physical debility Spherocytosis, hereditary Urinary symptom or sign Non-healing skin lesion Cellulitis of right leg Mona infection Diabetes Symptoms of upper respiratory infection (URI) Colostomy in place Chronic cough Leg pain Acute pain of left lower extremity (Acute) Left ankle injury Hx of TIA (transient ischemic attack) and stroke Confusion CAD (coronary artery disease) NSTEMI in 08/2017; 2 JOHN to LAD and 1 to LCx Stroke-like symptoms Spinal stenosis, lumbar region with neurogenic claudication Lumbago Dystonia of right hand Greater trochanteric bursitis Sciatic leg pain Dysuria Sciatica Nocturia Abnormal CT of the abdomen Polypharmacy Pain of right leg (Acute) Weakness (Acute) Lumbar radiculopathy, acute Episode of unresponsiveness (Acute) Chest pain (Acute) Foot fracture, right (Acute) Routine health maintenance (Chronic) CKD (chronic kidney disease) stage 3, GFR 30-59 ml/min (Chronic) Foot pain, right Dysphagia Esophageal spasm GERD (gastroesophageal reflux disease) Dehydration (Acute) Leukocytosis Cerebrovascular disease Carotid artery stenosis Syncope (Acute) History of cerebrovascular accident (Chronic) Vasomotor rhinitis (Chronic) Urinary incontinence (Chronic) Thyroid disorder (Chronic) Secondary thrombocytosis (Chronic) Pulmonary nodules (Chronic) Peripheral neuropathy (Chronic) Osteoporosis (Chronic) Osteoarthritis (Chronic) Obesity (Chronic) KENYA (obstructive sleep apnea) (Chronic) Nocturnal leg cramps (Chronic) Lumbar canal stenosis (Chronic) Gait disturbance, post-stroke (Chronic) Edema (Acute) Cognitive deficit, post-stroke (Chronic) BMI 36.0-36.9,adult (Chronic) Acquired asplenia (Chronic) Constipation (Chronic 08/19/10) Medical History (Updated 11/13/23 @ 16:39 by Zack Pierson MD) Syncope Thrombocytosis Non-hemorrhagic cerebrovascular accident (CVA) Pseudoaneurysm Chronic kidney disease, stage 3a Aortic valve vegetation TIA (transient ischemic attack) CVA (cerebral vascular accident) Hypothyroidism 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 Impaired fasting glucose Hypercholesterolemia Hemiparesis 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 Diverticulosis of colon Cataract Diverticulitis Hypertension Pancreatitis Hypertensive crisis History of open sigmoidectomy Perforated bowel Surgical History (Updated 11/13/23 @ 10:26 by Jonna Chacon DO) History of colectomy History of cholecystectomy History of colonoscopy History of tonsillectomy and adenoidectomy History of dilation and curettage History of tubal ligation History of breast surgery History of section History of colposcopy History of arthroscopy of right knee History of splenectomy History of knee replacement Hx of cholecystectomy History of lumpectomy History of section History of splenectomy Family History Unknown Heart disease Diabetes Breast cancer Uncle Colorectal cancer Mother No problems noted. Father Heart disease Myocardial infarction Brother Prostate cancer Myocardial infarction Denies family history of Ovarian cancer Social History Smoking Status: Never smoker Second Hand Exposure: No; Do You Dip or Chew Tobacco: No; Tobacco Cessation Education Requested by Patient: No Hx Alcohol Use: No Hx Substance Use: No Preferred Language: Danish Communication Ability: Effective Visual Impairment: Limited Hearing Ability: Normal Composition Siding Worker Required: No Beliefs That Will Affect Care: None marital status: Current Living Situation: Personal Care Facility Current Living Situation Comment: states her and her went to detention after broke his leg current occupational status: retired 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 How many Children do You have: 3 Other Information That Helps Us Care for You: No Feels Safe at Home: Yes Safety Concerns: Feels Safe At This Time Childhood Exposure to Second-Hand Smoke: Yes Diet: regular caffeine: Yes Dental Care, Regularly: No Physical Activity Frequency: Does not Exercise Seatbelt Use: always Sunscreen Use: Yes Gender Identity: Female Assistive Devices: Wheelchair Allergies Allergies Allergy/AdvReac Type Severity Reaction Status Date / Time clavulanic acid Allergy Severe Rash Verified 09/13/23 08:43 vancomycin Allergy Intermediate rash Verified 11/13/23 12:28 amoxicillin [From Augmentin] Allergy Unknown UNKNOWN--ON Unverified 11/13/23 12:28 [facility] codeine Allergy Unknown UNKNOWN--ON Verified 11/13/23 12:28 [facility] Home Meds Home Medications Medication Instructions Recorded Confirmed aspirin 81 mg tablet,delayed 81 mg PO QAM 11/22/17 11/13/23 release (Arin Low Dose Aspirin) bhsfcnjy-tyl-[id number] acid 0.4 1 tab PO QAM 05/30/18 11/13/23 mg-lycopene 300 mcg-lutein 250 mcg tablet (Centrum Silver) nitroglycerin 0.4 mg sublingual 0.4 mg sublingual DIRECTED PRN 07/21/18 11/13/23 tablet Chest Pain docusate sodium 100 mg tablet 100 mg PO BIDM 05/27/22 11/13/23 polyethylene glycol 3350 17 17 g PO QPM PRN Constipation 05/27/22 11/13/23 gram/dose oral powder (Gavilax) amoxicillin 500 mg capsule 2,000 mg PO DIRECTED PRN 1 HR 01/28/23 11/13/23 PRIOR TO DENTAL PROCEDURES escitalopram oxalate 5 mg tablet 5 mg PO QAM 09/13/23 11/13/23 (Lexapro) metformin 500 mg tablet,extended 500 mg PO QAM 09/13/23 11/13/23 release 24 hr mirabegron 50 mg tablet,extended 50 mg PO QAM 09/13/23 11/13/23 release 24 hr (Myrbetriq) oxybutynin chloride 10 mg 10 mg PO QAM 09/13/23 11/13/23 tablet,extended release 24 hr losartan 50 mg tablet 50 mg PO QAM 11/13/23 11/13/23 melatonin 1 mg tablet 1 mg PO HS 11/13/23 11/13/23 Previous Rx's Medication Instructions Recorded Wheelchair (Manual) (Manual #1 ea 03/02/21 Wheelchair) benzonatate 100 mg capsule 100 mg PO TID PRN cough #30 caps 01/24/22 furosemide 40 mg tablet 40 mg PO DAILY PRN edema #90 tabs 01/04/23 ostomy supplies 2 3/4" (New Image #30 ea 01/19/23 Skin Barrier-Flange) lorazepam 0.5 mg tablet 0.5 mg PO BID PRN anxiety #60 tabs 04/11/23 clopidogrel 75 mg tablet 75 mg PO QAM #30 tabs 05/03/23 colostomy bags 2 3" (New Image #30 ea 08/08/23 Drainable Lock N Roll) atorvastatin 40 mg tablet 40 mg PO QAM #90 tabs 08/24/23 gabapentin 100 mg capsule 100 mg PO BID #60 caps 09/15/23 hydrocodone 5 mg-acetaminophen 325 1 tab PO BID PRN Pain #60 tabs 09/19/23 mg tablet levothyroxine 25 mcg tablet 25 mcg PO QAM #30 tabs 09/19/23 metoprolol succinate 25 mg 25 mg PO HS #30 tabs 09/19/23 tablet,extended release 24 hr Results & Data (ED) Vital Signs Vital Signs - 24 hr 11/13/23 08:19 11/13/23 10:28 11/13/23 11:02 Temperature 36.6 C Temperature Source Temporal Artery Scan Pulse Rate 72 64 Pulse Rate [Finger] 63 Respiratory Rate 19 17 Respiratory Effort / Characteristics Non-Labored Spontaneous Non-Labored Spontaneous Respiratory Depth Normal Normal Respiratory Pattern Regular Blood Pressure 129/71 Blood Pressure [Left Arm] 130/71 Blood Pressure Mean 90 Blood Pressure Mean [Left Arm] 90 Blood Pressure Position [Left Arm] Lying Pulse Oximetry 96 94 Oxygen Delivery Method Room Air Room Air Sepsis Recent Fever Within 48 Hours No Sepsis New/Unexplained Change in Mental Status No Sepsis Action Taken by Nursing No Action Required Laboratory Data 11/13/23 10:29 11/13/23 10:29 Lab Results 11/13/23 11/13/23 Range/Units 08:42 10:29 WBC 11.12 H (4.8-10.8) K/ul RBC 3.92 L (4.20-5.40) M/uL Hgb 12.1 (12.0-16.0) g/dl Hct 36.0 L (37.0-47.0) % MCV 91.8 (80.0-100.0) fL MCH 30.9 (25.0-34.0) pg MCHC 33.6 (32.0-36.0) g/dL RDW Std Deviation 48.0 H (36.4-46.3) fL RDW Coeff of Roberto 14.4 (11.5-14.5) % Plt Count 396 (130-400) K/uL MPV 9.9 (9.4-12.4) fL Immature Gran % (Auto) 0.4 % Neut % (Auto) 65.8 % Lymph % (Auto) 24.0 % Wake % (Auto) 7.0 % Eos % (Auto) 2.1 % Baso % (Auto) 0.7 % Neut # (Auto) 7.31 H (1.40-6.50) K/uL Lymph # (Auto) 2.67 (1.20-3.40) K/uL Wake # (Auto) 0.78 H (0.11-0.59) K/uL Eos # (Auto) 0.23 (0.00-0.50) K/uL Baso # (Auto) 0.08 (0.00-0.20) K/uL Immature Gran # (Auto) 0.05 (0.01-0.20) K/uL Sodium 138 (136-145) mmol/L Potassium 4.3 (3.5-5.1) mmol/L Chloride 105 (98-107) mmol/L Carbon Dioxide 27 (21-32) mmol/L Anion Gap 6 (3-11) BUN 20 (6-23) mg/dl Creatinine 0.92 (0.6-1.2) mg/dl Est Cr Clr Drug Dosing 45.6 ml/min eGFR 60.64 BUN/Creatinine Ratio 21.7 H (10-20) Glucose 166 H (70-99(Fasting)) mg/dl Calcium 9.0 (8.6-10.3) mg/dl Urine Color Yellow Urine Appearance Turbid A (Clear) Urine pH 5.0 (4.5-7.5) Ur Specific [place] 1.015 (1.000-1.030) Urine Protein 1+ H (Negative) Urine Glucose (UA) Negative (Negative) Urine Ketones Trace H (Negative) Urine Blood 1+ H (Negative) Urine Nitrite Negative (Negative) Urine Bilirubin Negative (Negative) Urine Urobilinogen Negative (Negative) Ur Leukocyte Esterase 3+ H (Negative) Urine WBC (Auto) >50 H (0-5) /hpf Urine RBC (Auto) 6-10 H (0-2) /hpf U Hyaline Cast (Auto) 11-20 H (0-2) /lpf U Epithel Cells (Auto) 11-20 H (0-2) /hpf Urine Bacteria (Auto) 4+ H (None Seen) Administered Medications Gabapentin (Gabapentin 100 Mg Cap) 100 mg PO BID RENETTA Stop: 12/13/23 12:43 Last Admin: 11/13/23 13:54 Dose: 100 mg Documented By: SNS Discontinued Medications Ertapenem (Invanz 1000mg) 1,000 mg in 10 mls @ 2 mls/min IV NOW STA Stop: 11/13/23 10:09 Last Admin: 11/13/23 11:09 Dose: 2 mls/min Documented By: CC Ondansetron HCl (Ondansetron Inj 2 Mg/Ml 2 Ml Vial) 4 mg IV NOW STA Stop: 11/13/23 11:28 Last Admin: 11/13/23 11:55 Dose: 4 mg Documented By: CC Discharge Plan Visit Data Chief Complaint: Urinary Symptoms Stated Complaint: POSSIBLE UTI ED Provider: Zack Pierson Discharge Problem: Urinary tract infection due to extended-spectrum beta lactamase (ESBL) producing Escherichia coli Patient Disposition: Admitted As Inpatient Discharge Instructions Interventions: ED Discharge Assessment Last Done: 11/13/23 16:50
[2023-11-13 09:22] LABS: Appearance Urine Turbid (Clear); Bacteria Urine Automated 4+ (None Seen); Bilirubin Urine Negative (Negative); Blood Urine 1+ (Negative); Color Urine Yellow; Glucose Urine UA Negative (Negative); Ketones Urine Trace (Negative); Leukocyte Esterase Urine 3+ (Negative); Nitrite Urine Negative (Negative); Protein Urine 1+ (Negative); Specific Gravity Urine 1.015 (1.000-1.030); Urobilinogen Urine Negative (Negative); WBC Urine Automated >50 /hpf (0-5)
--- NOTE | 2023-11-13 10:25 | History & Physical Report ---
Date of Service November 13, 2023 Assessment & Plan (1) Urinary tract infection: (2) Stage III chronic kidney disease: (3) History of cardioembolic cerebrovascular accident (CVA): (4) History of open sigmoidectomy: (5) Hypertension: Plan Urinary Tract Infection | History of Recent ESBL Infection -Several days of burning with urination and urinary frequency -Multiple UTIs this year, last urine culture from 10/2023 grew ESBL which was treated with Macrobid -UA in ED shows leukocytes, blood, ketones, protein -Urine culture pending -Received Ertapenem in ED, will continue q24h Ertapenem while awaiting culture -Mild leukocytosis (11k) on admission, stable BP and afebrile -Patient able to tolerate PO, will defer any IV fluids at present. Zofran PRN. -Continue home Myrbetriq, Oxybutynin. Bladder scan PRN. -Will order PT/OT evals for subjective weakness, uses wheelchair at baseline -Monitor daily CBC with diff Hypertension -Continue home Losartan, metoprolol -Normotensive at time of admission CKD, Stage 3 -Cr 0.92 at time of admission -Appears to be at baseline -Monitor daily metabolic panel Diabetes Mellitus, Type 2 -Continue home metformin, no current need for insulin while admitted -Last A1C 6.3% (10/2023) CAD | History of CVA -Continue home Plavix, aspirin Memory Impairment -Noted per prior PCP documentation -Patient alert and oriented x4 at time of evaluation Anxiety -Continue Lexapro, PRN ativan Admit to: medical VTE Prophylaxis: Heparin Diet: heart healthy, carb consistent Code Status: Full Code Admission and Anticipated Discharge Date Admission Date: I personally saw and examined the patient. I independently reviewed the labs, EKG, imaging, problem list, medication list, past medical history and family history. I verified all guaman points and agree with resident physician Dr Jonna Chacon PA-C with the following exceptions and/or additions: 88 year old female presents to the ER with urinary symptoms consistent with UTI. Previously treated without Ertapenem for ESBL. Presumably same bacteria again given it was not treated with ertapenem despite her symptoms improving. Patient mainly concerned about getting a room in hospital. O/E HS RRR, no murmurs, Chest CTAB, Abdo SNT, no CVA tenderness A/P UTI - presumed ESBL as not treated with ertapenem previously. Although it is not confirmed the same bacteria there is a high chance it is ESBL again and will observe in hospital for ertapenem treatment pending culture results and sensitivities. History of Present Illness Primary Care Provider: Shilpa Parker MD Christi Grace is a 88 year-old female who presents today for concern of dysuria and urinary frequency. Her medical history is significant for recurrent UTIs, urinary incontinence, diabetes mellitus, anxiety, prior CVA, CKD stage 3, GERD, colostomy due to diverticulitis. She resides at [place]. Patient endorses several days of urinary frequency, urgency and is incontinent of urine at baseline. Patient denies fever/body aches/chills/shortness of breath/chest pain. Was treated for UTI (ESBL) in October with Macrobid, also had UTI in September which was treated with Keflex. Patient states she has been able to eat and drink normally, but does feel a bit more weak than usual. Endorses using a wheelchair at baseline. Denies vomiting or diarrhea, but endorses some nausea at present. ED Course: -UA, culture pending -1x Ertapenem -BMP, CBC Allergies Allergy/AdvReac Type Severity Reaction Status Date / Time clavulanic acid Allergy Severe Rash Verified 09/13/23 08:43 vancomycin Allergy Intermediate rash Verified 11/13/23 12:28 amoxicillin [From Augmentin] Allergy Unknown UNKNOWN--ON Unverified 11/13/23 12:28 [facility] MED L[facility] codeine Allergy Unknown UNKNOWN--ON Verified 11/13/23 12:28 [facility] MED L[facility] Home Medications Medication Instructions Recorded Confirmed Type aspirin 81 mg tablet,delayed 81 mg PO QAM 11/22/17 11/13/23 History release (Arin Low Dose Aspirin) ofrarbzl-zir-hgxgl acid 0.4 1 tab PO QAM 05/30/18 11/13/23 History mg-lycopene 300 mcg-lutein 250 mcg tablet (Centrum Silver) nitroglycerin 0.4 mg sublingual 0.4 mg sublingual DIRECTED PRN 07/21/18 11/13/23 History tablet Chest Pain Wheelchair (Manual) (Manual #1 ea 03/02/21 07/20/23 Rx Wheelchair) benzonatate 100 mg capsule 100 mg PO TID PRN cough #30 caps 01/24/22 11/13/23 Rx docusate sodium 100 mg tablet 100 mg PO BIDM 05/27/22 11/13/23 History polyethylene glycol 3350 17 17 g PO QPM PRN Constipation 05/27/22 11/13/23 History gram/dose oral powder (Gavilax) furosemide 40 mg tablet 40 mg PO DAILY PRN edema #90 tabs 01/04/23 11/13/23 Rx ostomy supplies 2 3/4" (New Image #30 ea 01/19/23 07/20/23 Rx Skin Barrier-Flange) amoxicillin 500 mg capsule 2,000 mg PO DIRECTED PRN 1 HR 01/28/23 11/13/23 History PRIOR TO DENTAL PROCEDURES lorazepam 0.5 mg tablet 0.5 mg PO BID PRN anxiety #60 tabs 04/11/23 11/13/23 Rx clopidogrel 75 mg tablet 75 mg PO QAM #30 tabs 05/03/23 11/13/23 Rx colostomy bags 2 3/4" (New Image #30 ea 08/08/23 Rx Drainable Lock N Roll) atorvastatin 40 mg tablet 40 mg PO QAM #90 tabs 08/24/23 11/13/23 Rx escitalopram oxalate 5 mg tablet 5 mg PO QAM 09/13/23 11/13/23 History (Lexapro) metformin 500 mg tablet,extended 500 mg PO QAM 09/13/23 11/13/23 History release 24 hr mirabegron 50 mg tablet,extended 50 mg PO QAM 09/13/23 11/13/23 History release 24 hr (Myrbetriq) oxybutynin chloride 10 mg 10 mg PO QAM 09/13/23 11/13/23 History tablet,extended release 24 hr gabapentin 100 mg capsule 100 mg PO BID #60 caps 09/15/23 11/13/23 Rx hydrocodone 5 mg-acetaminophen 325 1 tab PO BID PRN Pain #60 tabs 09/19/23 11/13/23 Rx mg tablet levothyroxine 25 mcg tablet 25 mcg PO QAM #30 tabs 09/19/23 11/13/23 Rx metoprolol succinate 25 mg 25 mg PO HS #30 tabs 09/19/23 11/13/23 Rx tablet,extended release 24 hr losartan 50 mg tablet 50 mg PO QAM 11/13/23 11/13/23 History melatonin 1 mg tablet 1 mg PO HS 11/13/23 11/13/23 History Past Med/Surg History Problem List (Updated 11/13/23 @ 16:39 by Zack Pierson MD) Urinary tract infection due to extended-spectrum beta lactamase (ESBL) producing Escherichia coli (Acute) Age-related physical debility Spherocytosis, hereditary Urinary symptom or sign Non-healing skin lesion Cellulitis of right leg Mona infection Diabetes Symptoms of upper respiratory infection (URI) Colostomy in place Chronic cough Leg pain Acute pain of left lower extremity (Acute) Left ankle injury Hx of TIA (transient ischemic attack) and stroke Confusion CAD (coronary artery disease) NSTEMI in 08/2017; 2 JOHN to LAD and 1 to LCx Stroke-like symptoms Spinal stenosis, lumbar region with neurogenic claudication Lumbago Dystonia of right hand Greater trochanteric bursitis Sciatic leg pain Dysuria Sciatica Nocturia Abnormal CT of the abdomen Polypharmacy Pain of right leg (Acute) Weakness (Acute) Lumbar radiculopathy, acute Episode of unresponsiveness (Acute) Chest pain (Acute) Foot fracture, right (Acute) Routine health maintenance (Chronic) CKD (chronic kidney disease) stage 3, GFR 30-59 ml/min (Chronic) Foot pain, right Dysphagia Esophageal spasm GERD (gastroesophageal reflux disease) Dehydration (Acute) Leukocytosis Cerebrovascular disease Carotid artery stenosis Syncope (Acute) History of cerebrovascular accident (Chronic) Vasomotor rhinitis (Chronic) Urinary incontinence (Chronic) Thyroid disorder (Chronic) Secondary thrombocytosis (Chronic) Pulmonary nodules (Chronic) Peripheral neuropathy (Chronic) Osteoporosis (Chronic) Osteoarthritis (Chronic) Obesity (Chronic) KENYA (obstructive sleep apnea) (Chronic) Nocturnal leg cramps (Chronic) Lumbar canal stenosis (Chronic) Gait disturbance, post-stroke (Chronic) Edema (Acute) Cognitive deficit, post-stroke (Chronic) BMI 36.0-36.9,adult (Chronic) Acquired asplenia (Chronic) Constipation (Chronic 08/19/10) Medical History (Updated 11/13/23 @ 16:39 by Zack Pierson MD) Syncope Thrombocytosis Non-hemorrhagic cerebrovascular accident (CVA) Pseudoaneurysm Chronic kidney disease, stage 3a Aortic valve vegetation TIA (transient ischemic attack) CVA (cerebral vascular accident) Hypothyroidism 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 Impaired fasting glucose Hypercholesterolemia Hemiparesis 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 Diverticulosis of colon Cataract Diverticulitis Hypertension Pancreatitis Hypertensive crisis History of open sigmoidectomy Perforated bowel Surgical History (Updated 11/13/23 @ 10:26 by Jonna Chacon DO) History of colectomy History of cholecystectomy History of colonoscopy History of tonsillectomy and adenoidectomy History of dilation and curettage History of tubal ligation History of breast surgery History of section History of colposcopy History of arthroscopy of right knee History of splenectomy History of knee replacement Hx of cholecystectomy History of lumpectomy History of section History of splenectomy Family History Unknown Heart disease Diabetes Breast cancer Uncle Colorectal cancer Mother No problems noted. Father Heart disease Myocardial infarction Brother Prostate cancer Myocardial infarction Denies family history of Ovarian cancer Social History Smoking Status: Never smoker Second Hand Exposure: No; Do You Dip or Chew Tobacco: No; Tobacco Cessation Education Requested by Patient: No Hx Alcohol Use: No Hx Substance Use: No Preferred Language: French Communication Ability: Effective Visual Impairment: Limited Hearing Ability: Normal Real Estate Transaction Coordinator Required: No Beliefs That Will Affect Care: None marital status: Current Living Situation: Personal Care Facility Current Living Situation Comment: states her and her went to [facility] after broke his leg current occupational status: retired 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 How many Children do You have: 3 Other Information That Helps Us Care for You: No Feels Safe at Home: Yes Safety Concerns: Feels Safe At This Time Childhood Exposure to Second-Hand Smoke: Yes Diet: regular caffeine: Yes Dental Care, Regularly: No Physical Activity Frequency: Does not Exercise Seatbelt Use: always Sunscreen Use: Yes Gender Identity: Female Assistive Devices: Wheelchair Review of Systems Review of Systems: As per above Physical Exam Constitutional: WD/WN, vitals as above Eyes: + anicteric sclerae; no conjunctival abn ormality ENMT: Ears: no external ear abnormality Nose: no external nose abnormality Moist mucous membranes Respiratory: normal respiratory effort Anterior lung ham clear to auscultaiton Cardiovascular: Rate/Rhythm: regular rate and regular rhythm +1 edema of bilateral lower extremities Gastrointestinal (Abdomen): Percussion/Palpation: abdomen soft; no guarding and abdomen not rigid Ostomy in place. Musculoskeletal: Moves all limbs independently Skin: no rashes, warm and dry Neurologic: No focal defects appreciated. Psychiatric: A+Ox3, euthymic affect Results & Data Results & Data Vital Signs (Past 12 Hours) Vital Signs Temp Pulse Resp BP Pulse Ox O2 Del Method 11/13/23 08:19 36.6 C 72 19 129/71 96 Room Air Resident Activity Tracking Resident Involvement: Resident Care Provided Care Provided: Adult Hospital Medicine (5) Hypertension Hypertension type: essential hypertension Qualified Code(s): I10 - Essential (primary) hypertension
[2023-11-13] MEDS ORDERED: Patient's HEIGHT &/or WEIGHT Needed ONE (10:30)
[2023-11-13 10:53] LABS: Basophils # (auto) 0.08 K/uL (0.00-0.20); Basophils % (auto) 0.7 %; Eosinophils # (auto) 0.23 K/uL (0.00-0.50); Eosinophils % (auto) 2.1 %; Hemoglobin 12.1 g/dl (12.0-16.0); Immature Granulocytes # (auto) 0.05 K/uL (0.01-0.20); Immature Granulocytes % (auto) 0.4 %; Lymphocytes # (auto) 2.67 K/uL (1.20-3.40); Mean Corpuscular Hemoglobin 30.9 pg (25.0-34.0); Mean Corpuscular Hgb Conc 33.6 g/dL (32.0-36.0); Mean Corpuscular Volume 91.8 fL (80.0-100.0); Mean Platelet Volume 9.9 fL (9.4-12.4); Monocytes # (auto) 0.78 K/uL (0.11-0.59); Neutrophils # (auto) 7.31 K/uL (1.40-6.50); Neutrophils % (auto) 65.8 %; Platelet Count 396 K/uL (130-400); RDW Coefficient of Variation 14.4 % (11.5-14.5); Red Blood Count 3.92 M/uL (4.20-5.40); White Blood Count 11.12 K/ul (4.8-10.8)
[2023-11-13 11:04] LABS: BUN Creatinine Ratio 21.7 (10-20); Creatinine Clr Calc Pharmacy 45.6 ml/min; Potassium 4.3 mmol/L (3.5-5.1)
[2023-11-13] MEDS: ERTAPENEM 1000MG 1,000 MG/10 ML SYR IV STA (11:09)
[2023-11-13] MEDS: ONDANSETRON INJ 2 MG/ML 2 ML VIAL IV STA (11:55)
[2023-11-13] MEDS ORDERED: GLUCOSE 40% GEL 15 GM TUBE PO PRN (12:44)
[2023-11-13] MEDS ORDERED: CARBOHYDRATES FOR HYPOGLYCEMIA PO PRN (12:44)
[2023-11-13] MEDS ORDERED: DEXTROSE 50% 50 ML SYRINGE IV PRN (12:44)
[2023-11-13] MEDS ORDERED: GLUCAGON FOR INJ 1 MG VIAL SQ PRN (12:44)
[2023-11-13] MEDS ORDERED: GLUCOSE 10 TAB/TUBE PO PRN (12:44)
[2023-11-13] MEDS ORDERED: MELATONIN 3 MG TAB PO PRN (12:44)
[2023-11-13] MEDS: GABAPENTIN 100 MG CAP PO SCH (13:54)
[2023-11-13] MEDS ORDERED: LORazepam 0.5 MG TAB PO PRN (15:03)
[2023-11-13] MEDS ORDERED: INSULIN ASPART PER UNIT CHARGE SC SCH (16:30)
[2023-11-13] MEDS: METOPROLOL SUCC 25MG EXT REL TAB PO SCH (20:59)
[2023-11-13] MEDS: HEPARIN SOD 5,000 UNIT/0.5 ML VIAL SQ SCH (20:59)
[2023-11-13] MEDS: MELATONIN 3 MG TAB PO SCH (20:59)
[2023-11-13] MEDS ORDERED: LANTUS PER UNIT CHARGE SQ SCH (21:00)
[2023-11-14] MEDS: LEVOTHYROXINE SODIUM 25 MCG TABLET PO SCH (05:41)
[2023-11-14] MEDS: ONDANSETRON INJ 2 MG/ML 2 ML VIAL IV PRN (05:44)
[2023-11-14 06:26] LABS: Basophils # (auto) 0.08 K/uL (0.00-0.20); Basophils % (auto) 0.6 %; Eosinophils # (auto) 0.18 K/uL (0.00-0.50); Eosinophils % (auto) 1.3 %; Hematocrit (blood only) 36.4 % (37.0-47.0); Immature Granulocytes % (auto) 0.7 %; Lymphocytes # (auto) 2.34 K/uL (1.20-3.40); Lymphocytes % (auto) 16.4 %; Mean Corpuscular Hemoglobin 30.2 pg (25.0-34.0); Mean Corpuscular Volume 91.5 fL (80.0-100.0); Mean Platelet Volume 9.5 fL (9.4-12.4); Monocytes # (auto) 0.77 K/uL (0.11-0.59); Monocytes % (auto) 5.4 %; Neutrophils # (auto) 10.81 K/uL (1.40-6.50); Neutrophils % (auto) 75.6 %; Platelet Count 394 K/uL (130-400); RDW Coefficient of Variation 14.1 % (11.5-14.5); RDW Standard Deviation 47.5 fL (36.4-46.3); Red Blood Count 3.98 M/uL (4.20-5.40); White Blood Count 14.28 K/ul (4.8-10.8)
[2023-11-14 06:37] LABS: Calcium 8.9 mg/dl (8.6-10.3); Creatinine Clr Calc Pharmacy 42.6 ml/min; Potassium 4.4 mmol/L (3.5-5.1)
[2023-11-14 07:49] LABS: Estimated Average Glucose 128 mg/dl; Hemoglobin A1C 6.1 % (4.5-5.6)
[2023-11-14] MEDS: LOSARTAN POTASSIUM 50 MG TAB PO SCH (08:08)
[2023-11-14] MEDS: ESCITALOPRAM OXALATE 10 MG TAB PO SCH (08:08)
[2023-11-14] MEDS: OXYBUTYNIN CHLORIDE XL 5 MG TABCR PO SCH (08:09)
[2023-11-14] MEDS: VIBEGRON 75 MG TAB PO SCH (08:09)
[2023-11-14] MEDS: ATORVASTATIN 40 MG TAB PO SCH (08:09)
[2023-11-14] MEDS: CLOPIDOGREL BISULFATE 75 MG TAB PO SCH (08:09)
[2023-11-14] MEDS: ASPIRIN 81 MG ECTAB PO SCH (08:09)
[2023-11-14] MEDS ORDERED: LOSARTAN POTASSIUM 50 MG TAB PO SCH (09:00)
[2023-11-14] MEDS: ERTAPENEM 1000MG 1,000 MG/10 ML SYR IV SCH (10:17)
--- NOTE | 2023-11-14 12:06 | Billing Data ---
Date of Service November 13, 2023 Coding Level of Care Code 81527 INT INP/OBS CARE
[2023-11-14] MEDS: INSULIN ASPART PER UNIT CHARGE SC SCH (12:43)
[2023-11-14] MEDS: POLYETHYLENE (MIRALAX) 17 GM PACK PO PRN (18:09)
--- NOTE | 2023-11-14 19:21 | Hospitalist Progress Note ---
Date of Service November 14, 2023 Assessment & Plan (1) Urinary tract infection: Plan: 2nd to GNR NUMEROUS UTIs over the last 6-12 months - various pathogens including gram +'s and gram neg's just had ESBL e.coli in 10/2023 cont ertapenem IV await culture last CT abd/pelvis - 03/2023 - no urinary tract pathology at minimum her chronic urinary incontinence is increasing her UTI risk asplenic state, advanced age, etc also contribute low threshold to reimage the abdomen this admission if she fails to improve send to [facility] [facility] Urology post-d/c for additional w/u consider estrogen cream but defer for now in light of breast ca history HOLD oxybutinin as this can cause urinary retention which will increase her UTI risk (2) Stage III chronic kidney disease: Plan: baseline CrCl 30-45 c/w stage 3b disease BMP am for stability (3) History of cardioembolic cerebrovascular accident (CVA): Plan: MRI 2018 showed old, chronic left basal ganglia CVAs cont asa, plavix for secondary prevention (4) History of open sigmoidectomy: Plan: with colostomy creation - for perforated diverticulitis - year uncertain having some constipation issues - add senna/colace/miralax (5) Hypertension: Plan: cont metoprolol cont losartan Plan Diabetes Mellitus, Type 2 HOLD home metformin Loose novolog SSI Last A1C 6.3% (10/2023) CAD - history of prior apical NSTEMI, LAD JOHN x2, LCx JOHN, August 2017 Cont metoprolol succinate, asa, statin, ARB, plavix Hypothyroidism - TSH 3.7 cont synthroid VTE Prophylaxis: Heparin 5000 BID daughter extensively updated by phone (Peyton Grace) await urine cx results Admission and Anticipated Discharge Date Admission Date: November 13, 2023 Subjective patient lying in bed watching TV reports dysuria and mild lower abdominal discomfort had nausea this am - now resolved was able to eat breakfast & lunch albeit just a small amount per staff the stool in her ostomy bag is firm/hard/small in quantity pt confirms she uses a wheelchair at [facility] for ambulation doesn't walk Review of Systems Review of Systems: gen - tired/fatigued cv - no chest pain pulm - no dyspnea Physical Exam Physical Exam: gen - NAD, nontoxic, awake, alert mouth - MM slightly dry neck - no JVD heart - RRR, s1 s2 lungs - b/l basilar rales (fine,dry); no wheeze abd - soft NT ND BS+; ostomy left abdomen ext - 1-2+ edema b/l legs and feet; pulses 2+ b/l skin - venous stasis changes b/l shins neuro - ?masked facies?? Results & Data Results & Data Vital Signs (Past 12 Hours) Vital Signs Temp Pulse Resp BP BP Pulse Ox O2 Del Method 11/14/23 15:57 36.7 C 77 16 105/67 94 Room Air 11/14/23 07:35 36.5 C 75 16 147/82 H 93 Room Air Laboratory Results Laboratory Results - last 24 hr 11/13/23 11/14/23 11/14/23 20:19 06:00 07:59 WBC 14.28 H RBC 3.98 L Hgb 12.0 Hct 36.4 L MCV 91.5 MCH 30.2 MCHC 33.0 RDW Std Deviation 47.5 H RDW Coeff of Roberto 14.1 Plt Count 394 MPV 9.5 Immature Gran % (Auto) 0.7 Neut % (Auto) 75.6 Lymph % (Auto) 16.4 [place] % (Auto) 5.4 Eos % (Auto) 1.3 Baso % (Auto) 0.6 Neut # (Auto) 10.81 H Lymph # (Auto) 2.34 [place] # (Auto) 0.77 H Eos # (Auto) 0.18 Baso # (Auto) 0.08 Immature Gran # (Auto) 0.10 Sodium 135 L Potassium 4.4 Chloride 103 Carbon Dioxide 26 Anion Gap 6 BUN 19 Creatinine 0.95 Est Cr Clr Drug Dosing 42.6 eGFR 58.35 BUN/Creatinine Ratio 20.0 Glucose 136 H POC Glucose 135 H 142 H Estimat Average Glucose 128 Hemoglobin A1c 6.1 H Calcium 8.9 11/14/23 11/14/23 11:24 16:50 WBC RBC Hgb Hct MCV MCH MCHC RDW Std Deviation RDW Coeff of Roberto Plt Count MPV Immature Gran % (Auto) Neut % (Auto) Lymph % (Auto) [place] % (Auto) Eos % (Auto) Baso % (Auto) Neut # (Auto) Lymph # (Auto) [place] # (Auto) Eos # (Auto) Baso # (Auto) Immature Gran # (Auto) Sodium Potassium Chloride Carbon Dioxide Anion Gap BUN Creatinine Est Cr Clr Drug Dosing eGFR BUN/Creatinine Ratio Glucose POC Glucose 150 H 155 H Estimat Average Glucose Hemoglobin A1c Calcium PG Care Time/CCT Total # of Minutes Spent Total Time Spent with Patient: Total time spent is greater than 50% in coordination of care (as documented) at patient's floor/unit and/or counseling patient: Coding Level of Care Code 38367 SUB INP/OBS CARE 3/50MIN Diagnoses Urinary tract infection N39.0 Stage III chronic kidney disease N18.3 History of cardioembolic cerebrovascular accident (CVA) Z86.73 History of open sigmoidectomy Z98.890; Z90.49 Essential hypertension I10 Hypertension type: essential hypertension (5) Hypertension Hypertension type: essential hypertension Qualified Code(s): I10 - Essential (primary) hypertension
[2023-11-15 06:12] LABS: Basophils # (auto) 0.06 K/uL (0.00-0.20); Basophils % (auto) 0.5 %; Eosinophils # (auto) 0.21 K/uL (0.00-0.50); Eosinophils % (auto) 1.7 %; Hematocrit (blood only) 34.1 % (37.0-47.0); Hemoglobin 11.5 g/dl (12.0-16.0); Immature Granulocytes # (auto) 0.06 K/uL (0.01-0.20); Immature Granulocytes % (auto) 0.5 %; Lymphocytes # (auto) 2.97 K/uL (1.20-3.40); Lymphocytes % (auto) 24.5 %; Mean Corpuscular Hemoglobin 30.8 pg (25.0-34.0); Mean Corpuscular Hgb Conc 33.7 g/dL (32.0-36.0); Mean Corpuscular Volume 91.4 fL (80.0-100.0); Mean Platelet Volume 10.1 fL (9.4-12.4); Monocytes # (auto) 0.95 K/uL (0.11-0.59); Monocytes % (auto) 7.8 %; Neutrophils # (auto) 7.87 K/uL (1.40-6.50); Platelet Count 365 K/uL (130-400); RDW Coefficient of Variation 14.4 % (11.5-14.5); RDW Standard Deviation 48.3 fL (36.4-46.3); Red Blood Count 3.73 M/uL (4.20-5.40); White Blood Count 12.12 K/ul (4.8-10.8)
[2023-11-15 06:27] LABS: BUN Creatinine Ratio 21.5 (10-20); Calcium 8.7 mg/dl (8.6-10.3); Creatinine Clr Calc Pharmacy 37.9 ml/min; Potassium 4.5 mmol/L (3.5-5.1)
[2023-11-15] MEDS: POLYETHYLENE (MIRALAX) 17 GM PACK PO SCH (07:46)
[2023-11-15] MEDS: SENNA 8.6 MG TAB PO SCH (07:46)
[2023-11-15] MEDS: POLYETHYLENE (MIRALAX) 17 GM PACK ONE (07:47)
[2023-11-15] MEDS: SENNA 8.6 MG TAB PO ONE (07:47)
[2023-11-15] MEDS: SODIUM CHLORIDE 0.9% 1,000 ML IV SCH (12:58)
[2023-11-15] MEDS: OPTIRAY 320 100ml IV ONE (13:36)
--- NOTE | 2023-11-15 15:21 | CT Scan Report ---
ABDOMEN AND PELVIS CT WITH IV AND ORAL CONTRAST CT DOSE: 1341.27 mGy.cm HISTORY: Acute urinary tract infection with generalized abdominal pain recurrent UTIs, colostomy; fi stula? other path? TECHNIQUE: Multiaxial CT images of the abdomen and pelvis were performed following the IV administrat ion of 93 cc of Optiray and oral contrast. A dose lowering technique was utilized adhering to the pr inciples of CODY. COMPARISON STUDY: 03/20/2023 FINDINGS: 3.7 cm calcified left breast lesion is partially imaged. Cardiomegaly with extensive espinoza ry artery calcifications. Subsegmental bibasilar atelectasis versus scarring. No free air. Absent spleen. Moderately atrophic pancreas. Cholecystectomy. Unremarkable adrenal glands. Likely pos toperative biliary ductal dilation. The liver is within normal limits. Patency of the hepatic and por rajwinder veins. 1.4 cm cyst of the superior pole right kidney. No hydronephrosis. Urinary bladder wall thi ckening with mucosal hyperemia and perivesicular stranding. Loculated fluid noted within the vaginal cavity. Atherosclerosis of the aorta and branch vessels. There is no lymphadenopathy identified. No small bowel obstruction. Bowel containing ventral left lower quadrant parastomal hernias redemonst rated. Prior distal colectomy with left lower quadrant colostomy. Colonic diverticulosis. No definite evidence of acute diverticulitis. No acute fracture. IMPRESSION: 1. Findings suggestive of cystitis. 2. No bowel obstruction or bowel wall thickening. 3. Colonic diverticulosis without definite evidence of acute diverticulitis. 4. Bowel containing ventral and left lower quadrant parastomal hernias redemonstrated. 5. Small amount of nonspecific loculated fluid noted within the vaginal canal could be correlated wit h pelvic examination. 6. Additional findings as above. ACT 112: Negative or not required by law. The above report was generated using voice recognition software. It may contain grammatical, syntax o r spelling errors. Dictated: 11/15/2023 1:46 PM Transcribed: 11/15/2023 1:57 PM [place] [id number] Electronically signed by: Noel Olivarez M.D. 11/15/2023 3:20 PM
--- NOTE | 2023-11-15 21:23 | Hospitalist Progress Note ---
Date of Service November 15, 2023 Assessment & Plan (1) Urinary tract infection: Plan: 2nd to ESBL E.coli NUMEROUS UTIs over the last 6-12 months - various pathogens including gram +'s and gram neg's just had ESBL e.coli in 10/2023 cont ertapenem IV I called microbiology and they are going to send out the culture for Fosfomycin testing/sensitivity last CT abd/pelvis - 03/2023 - no urinary tract pathology at minimum her chronic urinary incontinence is increasing her UTI risk asplenic state, advanced age, etc also contribute in the small chance she has colo-vesicular or colo-vaginal fistula will obtain CT a/p with PO & IV contrast today send to [facility] [facility] Urology post-d/c for additional w/u consider estrogen cream but defer for now in light of breast ca history HOLD oxybutinin as this can cause urinary retention which will increase her UTI risk (2) Stage III chronic kidney disease: Plan: baseline CrCl 30-45 c/w stage 3b disease restarting IV fluids - looks volume contracted today due to poor po intake BMP am for stability (3) History of cardioembolic cerebrovascular accident (CVA): Plan: MRI 2019 showed old, chronic left basal ganglia CVAs cont asa, plavix for secondary prevention (4) History of open sigmoidectomy: Plan: with colostomy creation - for perforated diverticulitis - year uncertain having some constipation issues - added senna/colace/miralax PO contrast for her CT abd/pelvis likely to help with constipation (5) Hypertension: Plan: cont metoprolol cont losartan (6) Acute metabolic encephalopathy: Plan: 2nd to UTI supportive care reinforce sleep-wake cycle (blinds open during the day, closed at night; OOB to chair when able; etc) Plan Diabetes Mellitus, Type 2 HOLD home metformin Loose novolog SSI Last A1C 6.3% (10/2023) CAD - history of prior apical NSTEMI, LAD JOHN x2, LCx JOHN, August 2017 Cont metoprolol succinate, asa, statin, ARB, plavix Hypothyroidism - TSH 3.7 cont synthroid VTE Prophylaxis: Heparin 5000 BID daughter extensively updated by phone (Peyton Grace) 10.8.24 [id number] updated at bedside today PT, OT when able she will need higher level of care than [facility] at d/c Admission and Anticipated Discharge Date Admission Date: November 14, 2023 Subjective patient with very poor appetite very tired no significant sundowning overnight per staff during the visit she was very quiet, offered no real complaints, fell asleep once [id number] at bedside during the visit Review of Systems Review of Systems: CV - no chest pain pulm - no dyspnea GI - no N/V Physical Exam Physical Exam: gen - NAD, but looks very tired, confused; no agitation mouth - MM dry neck - no JVD heart - RRR, s1 s2 lungs - b/l basilar rales (fine,dry); no wheeze abd - soft NT ND BS+; ostomy left abdomen - air present in bag, minimal stool in bag ext - 1+ edema b/l legs and feet; pulses 2+ b/l skin - venous stasis changes b/l shins Results & Data Results & Data Vital Signs (Past 12 Hours) Vital Signs Temp Pulse Resp BP Pulse Ox O2 Del Method 11/15/23 20:14 36.8 C 79 18 141/85 H 96 Room Air 11/15/23 15:52 36.5 C 85 16 145/80 H 95 Room Air Laboratory Results Laboratory Results 11/14/23 11/14/23 11/14/23 11:24 16:50 20:31 WBC RBC Hgb Hct MCV MCH MCHC RDW Std Deviation RDW Coeff of Roberto Plt Count MPV Immature Gran % (Auto) Neut % (Auto) Lymph % (Auto) [place] % (Auto) Eos % (Auto) Baso % (Auto) Neut # (Auto) Lymph # (Auto) [place] # (Auto) Eos # (Auto) Baso # (Auto) Immature Gran # (Auto) Sodium Potassium Chloride Carbon Dioxide Anion Gap BUN Creatinine Est Cr Clr Drug Dosing eGFR BUN/Creatinine Ratio Glucose POC Glucose 150 H 155 H 154 H Calcium 11/15/23 11/15/23 11/15/23 05:31 07:27 11:48 WBC 12.12 H RBC 3.73 L Hgb 11.5 L Hct 34.1 L MCV 91.4 MCH 30.8 MCHC 33.7 RDW Std Deviation 48.3 H RDW Coeff of Roberto 14.4 Plt Count 365 MPV 10.1 Immature Gran % (Auto) 0.5 Neut % (Auto) 65.0 Lymph % (Auto) 24.5 [place] % (Auto) 7.8 Eos % (Auto) 1.7 Baso % (Auto) 0.5 Neut # (Auto) 7.87 H Lymph # (Auto) 2.97 [place] # (Auto) 0.95 H Eos # (Auto) 0.21 Baso # (Auto) 0.06 Immature Gran # (Auto) 0.06 Sodium 134 L Potassium 4.5 Chloride 102 Carbon Dioxide 26 Anion Gap 6 BUN 23 Creatinine 1.07 Est Cr Clr Drug Dosing 37.9 eGFR 50.59 BUN/Creatinine Ratio 21.5 H Glucose 125 H POC Glucose 141 H 139 H Calcium 8.7 urine cx - ESBL E.coli, sens to ertapenem PG Care Time/CCT Total # of Minutes Spent Total Time Spent with Patient: Total time spent is greater than 50% in coordination of care (as documented) at patient's floor/unit and/or counseling patient: Coding Level of Care Code 38916 SUB INP/OBS CARE 3/50MIN Diagnoses Urinary tract infection N39.0 Stage III chronic kidney disease N18.3 History of cardioembolic cerebrovascular accident (CVA) Z86.73 History of open sigmoidectomy Z98.890; Z90.49 Essential hypertension I10 Hypertension type: essential hypertension Acute metabolic encephalopathy G93.41 (5) Hypertension Hypertension type: essential hypertension Qualified Code(s): I10 - Essential (primary) hypertension
[2023-11-16 06:24] LABS: Basophils # (auto) 0.07 K/uL (0.00-0.20); Basophils % (auto) 0.5 %; Eosinophils % (auto) 1.5 %; Hematocrit (blood only) 35.7 % (37.0-47.0); Hemoglobin 11.9 g/dl (12.0-16.0); Immature Granulocytes # (auto) 0.09 K/uL (0.01-0.20); Immature Granulocytes % (auto) 0.7 %; Lymphocytes % (auto) 19.2 %; Mean Corpuscular Hemoglobin 30.8 pg (25.0-34.0); Mean Corpuscular Hgb Conc 33.3 g/dL (32.0-36.0); Mean Corpuscular Volume 92.5 fL (80.0-100.0); Mean Platelet Volume 9.8 fL (9.4-12.4); Monocytes # (auto) 1.32 K/uL (0.11-0.59); Monocytes % (auto) 10.1 %; Neutrophils # (auto) 8.87 K/uL (1.40-6.50); Platelet Count 359 K/uL (130-400); RDW Coefficient of Variation 14.4 % (11.5-14.5); RDW Standard Deviation 48.8 fL (36.4-46.3); Red Blood Count 3.86 M/uL (4.20-5.40); White Blood Count 13.05 K/ul (4.8-10.8)
[2023-11-16 07:07] LABS: BUN Creatinine Ratio 21.8 (10-20); Calcium 8.3 mg/dl (8.6-10.3); Creatinine Clr Calc Pharmacy 46.6 ml/min; Potassium 4.3 mmol/L (3.5-5.1)
[2023-11-16] MEDS: ACETAMINOPHEN 325 MG TAB PO PRN (09:29)
--- NOTE | 2023-11-16 19:45 | Hospitalist Progress Note ---
Date of Service November 16, 2023 Assessment & Plan (1) Urinary tract infection: Plan: 2nd to ESBL E.coli NUMEROUS UTIs over the last 6-12 months - various pathogens including gram +'s and gram neg's just had ESBL e.coli in 10/2023 cont ertapenem IV - day #4 of such today ; plan 7 days of such as long as she continues to clinically improve I called microbiology and they are going to send out the culture for Fosfomycin testing/sensitivity last CT abd/pelvis - 03/2023 - no urinary tract pathology at minimum her chronic urinary incontinence is increasing her UTI risk asplenic state, advanced age, etc also contribute in the small chance she has colo-vesicular or colo-vaginal fistula I obtained CT a/p -- this showed ?fluid collection in the vagina obtained trans-abdominal pelvic u/s - fluid collection could not be seen I spoke with [place] [facility] [place] Practition[place] - she will need outpatient f/u and pelvic exam etiology of the CT finding is uncertain could the vaginal finding suggest she has a colo-vaginal fistula?? [place] [facility] [place]c for additional w/u HOLD oxybutinin as this can cause urinary retention which will increase her UTI risk (2) Stage III chronic kidney disease: Plan: baseline CrCl 30-45 c/w stage 3b disease cont IV fluids 1 more day, recheck BMP am likely can stop fluids tomorrow (3) History of cardioembolic cerebrovascular accident (CVA): Plan: MRI 2019 showed old, chronic left basal ganglia CVAs cont asa, plavix for secondary prevention (4) History of open sigmoidectomy: Plan: with colostomy creation - for perforated diverticulitis - year uncertain having some constipation issues - added senna/colace/miralax no obstruction or ileus seen on CT scan (5) Hypertension: Plan: cont metoprolol cont losartan (6) Acute metabolic encephalopathy: Plan: 2nd to UTI improved today cont supportive care reinforce sleep-wake cycle (blinds open during the day, closed at night; OOB to chair when able; etc) (7) Left breast mass: Plan: patient had a prior lumpectomy in the same breast last mammogram was 2022 - nothing suspicious seen b/l on that mammogram screen I found the following information on an old mammogram report -- this hard, large, calcified mass in the left breast is very concerning for recurrent breast ca will have her f/u with gynecology (or breast surgeon) for additional work-up if desired by patient Plan Diabetes Mellitus, Type 2 HOLD home metformin Loose novolog SSI Last A1C 6.3% (10/2023) CAD - history of prior apical NSTEMI, LAD JOHN x2, LCx JOHN, August 2017 Cont metoprolol succinate, asa, statin, ARB, plavix Hypothyroidism - TSH 3.7 cont synthroid VTE Prophylaxis: Heparin 5000 BID daughter extensively updated by phone (Peyton Grace) 11.14.23 and again today by phone [id number] updated at bedside today PT, OT when able she will need higher level of care than [facility] at d/c - SNF referrals in place Admission and Anticipated Discharge Date Admission Date: November 14, 2023 Subjective didn't eat breakfast today, but did eat 50% of lunch still very tired sleeping a lot sleeps in a recliner chair at [facility] she is agreeable to getting OOB to chair today with a lift some mild discomfort near her ostomy ostomy output still not that great no nausea/emesis had lengthy conversation with [id number] (present at bedside) and daughter (was on speaker phone) we discussed abnormal CT a/p showing ?fluid collection in the vagina 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 will need outpatient pelvic exam will obtain trans-abdominal pelvic u/s Review of Systems 2 Review of Systems: gen - fatigue; no fevers or chills cv - no cp, no orthopnea pulm - no dyspnea Physical Exam 2 Physical Exam: gen - NAD, looks a little better today; more awake; more alert mouth - MM more moist today neck - no JVD heart - RRR, s1 s2 lungs - b/l basilar rales (fine,dry) - no change; no wheeze abd - soft NT ND BS+; ostomy left abdomen - air present in bag, scant soft stool in bag ext - <1+ edema b/l legs and feet; pulses 2+ b/l skin - venous stasis changes b/l shins psych - oriented to person, place (hospital); month, year; thought it was Monday breast/chest wall - left breast, upper inner quadrant - firm/hard 3-4cm mass Results & Data Results & Data Vital Signs (Past 12 Hours) Vital Signs Temp Pulse Resp BP Pulse Ox O2 Del Method 11/16/23 19:02 36.6 C 81 16 109/70 93 Room Air 11/16/23 14:57 36.6 C 78 18 129/70 92 Room Air 11/16/23 08:00 Room Air Laboratory Results Laboratory Results - last 24 hr 11/15/23 11/15/23 11/16/23 16:28 20:21 06:04 WBC 13.05 H RBC 3.86 L Hgb 11.9 L Hct 35.7 L MCV 92.5 MCH 30.8 MCHC 33.3 RDW Std Deviation 48.8 H RDW Coeff of Roberto 14.4 Plt Count 359 MPV 9.8 Immature Gran % (Auto) 0.7 Neut % (Auto) 68.0 Lymph % (Auto) 19.2 [place] % (Auto) 10.1 Eos % (Auto) 1.5 Baso % (Auto) 0.5 Neut # (Auto) 8.87 H Lymph # (Auto) 2.50 [place] # (Auto) 1.32 H Eos # (Auto) 0.20 Baso # (Auto) 0.07 Immature Gran # (Auto) 0.09 Sodium 136 Potassium 4.3 Chloride 105 Carbon Dioxide 24 Anion Gap 7 BUN 19 Creatinine 0.87 Est Cr Clr Drug Dosing 46.6 eGFR 64.84 BUN/Creatinine Ratio 21.8 H Glucose 121 H POC Glucose 143 H 141 H Calcium 8.3 L SARS-CoV-2 RNA (RT-PCR) 11/16/23 11/16/23 11/16/23 07:46 09:30 11:49 WBC RBC Hgb Hct MCV MCH MCHC RDW Std Deviation RDW Coeff of Roberto Plt Count MPV Immature Gran % (Auto) Neut % (Auto) Lymph % (Auto) [place] % (Auto) Eos % (Auto) Baso % (Auto) Neut # (Auto) Lymph # (Auto) [place] # (Auto) Eos # (Auto) Baso # (Auto) Immature Gran # (Auto) Sodium Potassium Chloride Carbon Dioxide Anion Gap BUN Creatinine Est Cr Clr Drug Dosing eGFR BUN/Creatinine Ratio Glucose POC Glucose 139 H 137 H Calcium SARS-CoV-2 RNA (RT-PCR) Pending 11/16/23 16:41 WBC RBC Hgb Hct MCV MCH MCHC RDW Std Deviation RDW Coeff of Roberto Plt Count MPV Immature Gran % (Auto) Neut % (Auto) Lymph % (Auto) [place] % (Auto) Eos % (Auto) Baso % (Auto) Neut # (Auto) Lymph # (Auto) [place] # (Auto) Eos # (Auto) Baso # (Auto) Immature Gran # (Auto) Sodium Potassium Chloride Carbon Dioxide Anion Gap BUN Creatinine Est Cr Clr Drug Dosing eGFR BUN/Creatinine Ratio Glucose POC Glucose 140 H Calcium SARS-CoV-2 RNA (RT-PCR) Diagnostic Findings Pelvis Ultrasound 11/16/23 14:46 ULTRASOUND OF THE PELVIS CLINICAL HISTORY: Vaginal fluid seen by CT. COMPARISON STUDY: Pelvic CT dated 11/15/2023 TECHNIQUE: Real-time, grayscale, and color flow sonography of the pelvis is performed transabdominally. Images are reviewed in the transverse and longitudinal planes. FINDINGS: Uterus: The uterus is normal in size and heterogeneous and echotexture, measuring 9.2 x 2.9 x 5.8 cm. Endometrium: The endometrium is atrophic and not well-visualized on this transabdominal examination Ovaries: The ovaries are not visualized on this transabdominal examination secondary to overlying bowel gas. Pelvis: There is no free fluid in the cul-de-sac. No concerning adnexal lesion is seen. IMPRESSION: 1. No acute sonographic abnormality is seen in the pelvis on this transabdominal examination. 2. The ovaries were not visualized. 3. Fluid within the vagina seen by CT is not well assessed by ultrasound. Correlate with direct visualization. ACT 112: Negative or not required by law. Electronically signed by: Valdemar Guido M.D. 11/16/2023 10:13 PM PG Care Time/CCT Total # of Minutes Spent Total Time Spent with Patient: Total time spent is greater than 50% in coordination of care (as documented) at patient's floor/unit and/or counseling patient: Coding Level of Care Code 45583 SUB INP/OBS CARE 3/50MIN Diagnoses Urinary tract infection N39.0 Stage III chronic kidney disease N18.3 History of cardioembolic cerebrovascular accident (CVA) Z86.73 History of open sigmoidectomy Z98.890; Z90.49 Essential hypertension I10 Hypertension type: essential hypertension Acute metabolic encephalopathy G93.41 Left breast mass N63.20 (5) Hypertension Hypertension type: essential hypertension Qualified Code(s): I10 - Essential (primary) hypertension
--- NOTE | 2023-11-16 22:15 | Ultrasound Report ---
ULTRASOUND OF THE PELVIS CLINICAL HISTORY: Vaginal fluid seen by CT. COMPARISON STUDY: Pelvic CT dated 11/15/2023 TECHNIQUE: Real-time, grayscale, and color flow sonography of the pelvis is performed transabdominall y. Images are reviewed in the transverse and longitudinal planes. FINDINGS: Uterus: The uterus is normal in size and heterogeneous and echotexture, measuring 9.2 x 2.9 x 5.8 cm. Endometrium: The endometrium is atrophic and not well-visualized on this transabdominal examination Ovaries: The ovaries are not visualized on this transabdominal examination secondary to overlying bow el gas. Pelvis: There is no free fluid in the cul-de-sac. No concerning adnexal lesion is seen. IMPRESSION: 1. No acute sonographic abnormality is seen in the pelvis on this transabdominal examination. 2. The ovaries were not visualized. 3. Fluid within the vagina seen by CT is not well assessed by ultrasound. Correlate with direct visua lization. ACT 112: Negative or not required by law. Electronically signed by: Valdemar Guido M.D. 11/16/2023 10:13 PM
[2023-11-17 06:14] LABS: Base Excess VBG -0.7 mEq/L; HCO3 VBG 24 mmol/L; Oxygen Saturation VBG 94.8 %; PCO2 VBG 40 mmHg (38-50); PO2 VBG 66 mmHg; pH VBG 7.39 (7.36-7.41)
[2023-11-17 06:57] LABS: BUN Creatinine Ratio 18.8 (10-20); Calcium 8.2 mg/dl (8.6-10.3); Creatinine Clr Calc Pharmacy 58.7 ml/min; Potassium 4.2 mmol/L (3.5-5.1)
[2023-11-17] MEDS: POLYETHYLENE (MIRALAX) 17 GM PACK PO SCH (08:40)
[2023-11-17] MEDS: POLYETHYLENE (MIRALAX) 17 GM PACK ONE (08:50)
--- NOTE | 2023-11-17 16:14 | Hospitalist Progress Note ---
Date of Service November 17, 2023 Assessment & Plan (1) Urinary tract infection: Plan: 2nd to ESBL E.coli NUMEROUS UTIs over the last 6-12 months - various pathogens including gram +'s and gram neg's just had ESBL e.coli in 10/2023 cont ertapenem IV - day #5 of such today ; plan 7 days of such as long as she continues to clinically improve I called microbiology and they are going to send out the culture for Fosfomycin testing/sensitivity last CT abd/pelvis - 03/2023 - no urinary tract pathology at minimum her chronic urinary incontinence is increasing her UTI risk asplenic state, advanced age, etc also contribute in the small chance she has colo-vesicular or colo-vaginal fistula I obtained CT a/p -- this showed ?fluid collection in the vagina obtained trans-abdominal pelvic u/s - fluid collection could not be seen I spoke with on-[place] [facility] [place] [facility] [employer] [place] - she will need outpatient f/u and pelvic exam etiology of the CT finding is uncertain could the vaginal finding suggest she has a colo-vaginal fistula?? [place] [facility] [place] [place]/c for additional w/u as well HOLD oxybutinin as this can cause urinary retention which will increase her UTI risk (2) Stage III chronic kidney disease: Plan: baseline CrCl 30-45 c/w stage 3b disease BMP today stable (3) History of cardioembolic cerebrovascular accident (CVA): Plan: MRI 2019 showed old, chronic left basal ganglia CVAs cont asa, plavix for secondary prevention (4) History of open sigmoidectomy: Plan: with colostomy creation - for perforated diverticulitis - year uncertain having some constipation issues - added senna/colace/miralax no obstruction or ileus seen on CT scan (5) Hypertension: Plan: cont metoprolol cont losartan (6) Acute metabolic encephalopathy: Plan: 2nd to UTI continues to slowly improve each day cont supportive care reinforce sleep-wake cycle (blinds open during the day, closed at night; OOB to chair when able; etc) (7) Left breast mass: Plan: patient had a prior lumpectomy in the same breast last mammogram was 2022 - nothing suspicious seen b/l on that mammogram screen I found the following information on an old mammogram report -- this hard, large, calcified mass in the left breast is very concerning for recurrent breast ca will have her f/u with gynecology (or breast surgeon) for additional work-up if desired by patient (8) Pseudogout involving multiple joints: Plan: suspected L knee L ankle will obtain x-rays of both joints in meantime start prednisone 10mg daily has had pseudogout flares during prior hospital stays Plan Diabetes Mellitus, Type 2 HOLD home metformin Loose novolog SSI Last A1C 6.3% (10/2023) With steroids watch sugars carefully; could potentially need basal insulin CAD - history of prior apical NSTEMI, LAD JOHN x2, LCx JOHN, August 2017 Cont metoprolol succinate, asa, statin, ARB, plavix Hypothyroidism - TSH 3.7 cont synthroid VTE Prophylaxis: Heparin 5000 BID recheck labs in am daughter extensively updated (Peyton Grace) today at bedside PT, OT she will need higher level of care than [facility] at d/c - SNF referrals in place Admission and Anticipated Discharge Date Admission Date: November 14, 2023 Subjective patient more awake/alert today daughter at bedside - she agrees her mother is acting more like herself still not with great appetite no abd pain today main complaint is that of left leg pain mainly L knee and L ankle thinks the pain started "now" hurts to move the left leg because of this no fall or injury discussed nondiagnostic pelvic US results with pt & her daughter Review of Systems 2 Review of Systems: gen - still very tired cv - no chest pain, no orthopnea pulm - no dyspnea Gi - finally starting to have better stool output from ostomy Physical Exam 2 Physical Exam: gen - NAD, more awake/alert today, oriented to time & place mouth - MMM, no thrush neck - no JVD heart - RRR, s1 s2, no murmur lungs - b/l basilar rales (fine,dry) - no change; no wheeze abd - soft NT ND BS+; ostomy left abdomen - air present in bag, small amount of stool present ext - <1+ edema b/l legs and feet; pulses 2+ b/l skin - venous stasis changes b/l shins musculo - left knee synovitis; left ankle synovitis; pain with palpation & passive ROM of both joints; no pain over tib-fib; no pain over L thigh Results & Data Results & Data Vital Signs (Past 12 Hours) Vital Signs Temp Pulse Resp BP Pulse Ox O2 Del Method 10/11/24 15:36 36.7 C 79 18 108/68 96 Room Air 11/17/23 09:00 Room Air 11/17/23 07:25 36.6 C 76 18 136/82 96 Room Air Laboratory Results Laboratory Results - last 48 hr 11/16/23 11/16/23 11/16/23 09:30 11:49 16:41 WBC RBC Hgb Hct MCV MCH MCHC RDW Std Deviation RDW Coeff of Roberto Plt Count MPV Immature Gran % (Auto) Neut % (Auto) Lymph % (Auto) [place] % (Auto) Eos % (Auto) Baso % (Auto) Neut # (Auto) Lymph # (Auto) [place] # (Auto) Eos # (Auto) Baso # (Auto) Immature Gran # (Auto) VBG pH VBG pCO2 VBG pO2 VBG HCO3 VBG O2 Saturation VBG Base Excess Sodium Potassium Chloride Carbon Dioxide Anion Gap BUN Creatinine Est Cr Clr Drug Dosing eGFR BUN/Creatinine Ratio Glucose POC Glucose 137 H 140 H Calcium Ammonia SARS-CoV-2 RNA (RT-PCR) Negative 11/16/23 11/17/23 11/17/23 20:26 06:01 06:06 WBC RBC Hgb Hct MCV MCH MCHC RDW Std Deviation RDW Coeff of Roberto Plt Count MPV Immature Gran % (Auto) Neut % (Auto) Lymph % (Auto) [place] % (Auto) Eos % (Auto) Baso % (Auto) Neut # (Auto) Lymph # (Auto) [place] # (Auto) Eos # (Auto) Baso # (Auto) Immature Gran # (Auto) VBG pH 7.39 VBG pCO2 40 VBG pO2 66 VBG HCO3 24 VBG O2 Saturation 94.8 VBG Base Excess -0.7 Sodium 137 Potassium 4.2 Chloride 107 Carbon Dioxide 25 Anion Gap 5 BUN 13 Creatinine 0.69 Est Cr Clr Drug Dosing 58.7 eGFR 84.47 BUN/Creatinine Ratio 18.8 Glucose 114 H POC Glucose 139 H Calcium 8.2 L Ammonia 22.0 SARS-CoV-2 RNA (RT-PCR) 11/17/23 11/17/23 11/17/23 07:39 11:42 16:49 WBC RBC Hgb Hct MCV MCH MCHC RDW Std Deviation RDW Coeff of Roberto Plt Count MPV Immature Gran % (Auto) Neut % (Auto) Lymph % (Auto) [place] % (Auto) Eos % (Auto) Baso % (Auto) Neut # (Auto) Lymph # (Auto) [place] # (Auto) Eos # (Auto) Baso # (Auto) Immature Gran # (Auto) VBG pH VBG pCO2 VBG pO2 VBG HCO3 VBG O2 Saturation VBG Base Excess Sodium Potassium Chloride Carbon Dioxide Anion Gap BUN Creatinine Est Cr Clr Drug Dosing eGFR BUN/Creatinine Ratio Glucose POC Glucose 126 H 140 H 156 H Calcium Ammonia SARS-CoV-2 RNA (RT-PCR) PG Care Time/CCT Total # of Minutes Spent Total Time Spent with Patient: Total time spent is greater than 50% in coordination of care (as documented) at patient's floor/unit and/or counseling patient: Coding Level of Care Code 12043 SUB INP/OBS CARE 3/50MIN Diagnoses Urinary tract infection N39.0 Stage III chronic kidney disease N18.3 History of cardioembolic cerebrovascular accident (CVA) Z86.73 History of open sigmoidectomy Z98.890; Z90.49 Essential hypertension I10 Hypertension type: essential hypertension Acute metabolic encephalopathy G93.41 Left breast mass N63.20 Pseudogout involving multiple joints M11.89 (5) Hypertension Hypertension type: essential hypertension Qualified Code(s): I10 - Essential (primary) hypertension
[2023-11-17] MEDS: predniSONE 10 MG TABLET PO ONE (16:47)
--- NOTE | 2023-11-17 16:53 | XRay Report ---
LEFT KNEE 2 VIEWS CLINICAL HISTORY: Left knee pain. FINDINGS: AP and crosstable lateral views of the left knee are correlated with radiographs of the lef t tibia and fibula dated 10/06/2021. The skeletal structures are osteopenic. No fracture is seen. Ther e is [id number] tricompartmental degenerative joint space narrowing. Chondrocalcinosis is obser felipe in the medial and lateral compartments. There are patellar enthesophytes and degenerative peaking of the tibial spine. A small joint effusion is noted. Mild soft tissue swelling is seen in the knee. There is atherosclerotic calcification of the popliteal artery. IMPRESSION: 1. Soft tissue swelling with no acute bony abnormality identified. 2. Osteopenia with degenerative change and chondrocalcinosis as above. Electronically signed by: Valdemar Guido M.D. 11/17/2023 4:52 PM
--- NOTE | 2023-11-17 17:17 | XRay Report ---
XR ankle LT 2V HISTORY: 88 years-old Female L ankle pain, CPPD? Chronic left ankle pain COMPARISON: 10/06/2021 TECHNIQUE: 2 views of the left ankle FINDINGS: Arterial calcifications. Demineralized appearance of the bones. Mild multifocal osteoarthritis. Diffu se soft tissue swelling. No acute fracture, dislocation or osteochondral defect. IMPRESSION: No acute osseous abnormality. ACT 112: Negative or not required by law. The above report was generated using voice recognition software. It may contain grammatical, syntax o r spelling errors. Electronically signed by: Noel Olivarez M.D. 11/17/2023 5:15 PM
[2023-11-18] MEDS: predniSONE 10 MG TABLET PO SCH (07:59)
[2023-11-18 08:02] LABS: Basophils # (auto) 0.05 K/uL (0.00-0.20); Basophils % (auto) 0.4 %; Eosinophils # (auto) 0.07 K/uL (0.00-0.50); Eosinophils % (auto) 0.5 %; Hematocrit (blood only) 36.2 % (37.0-47.0); Hemoglobin 11.8 g/dl (12.0-16.0); Immature Granulocytes # (auto) 0.06 K/uL (0.01-0.20); Immature Granulocytes % (auto) 0.4 %; Lymphocytes # (auto) 2.91 K/uL (1.20-3.40); Lymphocytes % (auto) 21.2 %; Mean Corpuscular Hemoglobin 30.2 pg (25.0-34.0); Mean Corpuscular Hgb Conc 32.6 g/dL (32.0-36.0); Mean Corpuscular Volume 92.6 fL (80.0-100.0); Mean Platelet Volume 9.6 fL (9.4-12.4); Monocytes # (auto) 1.05 K/uL (0.11-0.59); Monocytes % (auto) 7.7 %; Neutrophils # (auto) 9.56 K/uL (1.40-6.50); Neutrophils % (auto) 69.8 %; Platelet Count 403 K/uL (130-400); RDW Coefficient of Variation 14.3 % (11.5-14.5); Red Blood Count 3.91 M/uL (4.20-5.40)
[2023-11-18 08:22] LABS: BUN Creatinine Ratio 21.7 (10-20); Calcium 8.9 mg/dl (8.6-10.3); Creatinine Clr Calc Pharmacy 67.5 ml/min; Potassium 4.4 mmol/L (3.5-5.1)
[2023-11-18] MEDS: THIAMINE HCL 100 MG TAB PO SCH (09:30)
--- NOTE | 2023-11-18 20:14 | Hospitalist Progress Note ---
Date of Service November 18, 2023 Assessment & Plan (1) Urinary tract infection: Plan: 2nd to ESBL E.coli NUMEROUS UTIs over the last 6-12 months - various pathogens including gram +'s and gram neg's just had ESBL e.coli in 10/2023 cont ertapenem IV - day #6 of such today ; plan 7 days of Rx I called microbiology and they are going to send out the culture for Fosfomycin testing/sensitivity last CT abd/pelvis - 03/2023 - no urinary tract pathology at minimum her chronic urinary incontinence is increasing her UTI risk asplenic state, advanced age, etc also contribute in the small chance she has colo-vesicular or colo-vaginal fistula I obtained CT a/p -- this showed ?fluid collection in the vagina obtained trans-abdominal pelvic u/s - fluid collection could not be seen 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 send to [facility] [place] Urology post-d/c for additional w/u as well HOLD oxybutinin as this can cause urinary retention which will increase her UTI risk oxybutinin can also cause confusion, constipation, etc. (2) Stage III chronic kidney disease: Plan: baseline CrCl 30-45 c/w stage 3b disease BMP today stable once again (3) History of cardioembolic cerebrovascular accident (CVA): Plan: MRI 2019 showed old, chronic left basal ganglia CVAs cont asa, plavix for secondary prevention (4) History of open sigmoidectomy: Plan: with colostomy creation - for perforated diverticulitis - year uncertain constipation improved with senna + TID miralax no obstruction or ileus seen on CT scan (5) Hypertension: Plan: cont metoprolol cont losartan (6) Acute metabolic encephalopathy: Plan: 2nd to UTI continues to improve each day cont supportive care reinforce sleep-wake cycle (blinds open during the day, closed at night; OOB to chair when able; etc) cont melatonin HS (7) Left breast mass: Plan: patient had a prior lumpectomy in the same breast last mammogram was 2022 - nothing suspicious seen b/l on that mammogram screen I found the following information on an old mammogram report -- this hard, large, calcified mass in the left breast is very concerning for recurrent breast ca will have her f/u with gynecology (or breast surgeon) for additional work-up if desired by patient (8) Pseudogout involving multiple joints: Plan: suspected L knee L ankle improved in 24 hours s/p prednisone day #2 of 10mg daily of prednisone x-ray of L knee with CPPD changes x-ray of L ankle without fracture but no CPPD changes seen either way both joints improved has had pseudogout flares during prior hospital stays Plan Diabetes Mellitus, Type 2 HOLD home metformin Loose novolog SSI Last A1C 6.3% (10/2023) CAD - history of prior apical NSTEMI, LAD JOHN x2, LCx JOHN, August 2017 Cont metoprolol succinate, asa, statin, ARB, plavix Hypothyroidism - TSH 3.7 cont synthroid VTE Prophylaxis: Heparin 5000 BID daughter extensively updated (Peyton Grace) yesterday at bedside cont PT, OT she will need higher level of care than [facility] at d/c - SNF referrals in place Admission and Anticipated Discharge Date Admission Date: November 14, 2023 Subjective ostomy starting to have increased output patient w/o any abd pain or N/V denies dyspnea L knee and L ankle pain resolved she doesn't remember having had the pain yesterday doesn't recall much of the last few days staff report she just wants to stay in bed and sleep appetite fair Review of Systems 2 Review of Systems: gen - tired, weak cv - no chest pain, no orthopnea pulm - no dyspnea Physical Exam 2 Physical Exam: gen - NAD, awake/alert today mouth - MMM, no thrush neck - no JVD heart - RRR, s1 s2, no murmur lungs - b/l basilar rales (fine,dry) - no change; no wheeze abd - soft NT ND BS+; ostomy left abdomen - small amount of brown stool present ext - trace edema b/l legs and feet; pulses 2+ b/l skin - venous stasis changes b/l shins musculo - left knee synovitis - resolved; left ankle synovitis - resolved; NO pain with palpation or passive ROM of both joints Results & Data Results & Data Vital Signs (Past 12 Hours) Vital Signs Temp Pulse Resp BP Pulse Ox O2 Del Method 11/18/23 12:07 36.3 C L 71 14 140/80 97 Room Air Laboratory Results Laboratory Results - last 24 hr 11/17/23 11/18/23 11/18/23 20:11 07:29 07:37 WBC 13.70 H RBC 3.91 L Hgb 11.8 L Hct 36.2 L MCV 92.6 MCH 30.2 MCHC 32.6 RDW Std Deviation 48.0 H RDW Coeff of Roberto 14.3 Plt Count 403 H MPV 9.6 Immature Gran % (Auto) 0.4 Neut % (Auto) 69.8 Lymph % (Auto) 21.2 [place] % (Auto) 7.7 Eos % (Auto) 0.5 Baso % (Auto) 0.4 Neut # (Auto) 9.56 H Lymph # (Auto) 2.91 [place] # (Auto) 1.05 H Eos # (Auto) 0.07 Baso # (Auto) 0.05 Immature Gran # (Auto) 0.06 Sodium 139 Potassium 4.4 Chloride 106 Carbon Dioxide 28 Anion Gap 5 BUN 13 Creatinine 0.60 Est Cr Clr Drug Dosing 67.5 eGFR 87.36 BUN/Creatinine Ratio 21.7 H Glucose 109 H POC Glucose 162 H 122 H Calcium 8.9 Vitamin B1 Pending 11/18/23 11/18/23 11:29 16:41 WBC RBC Hgb Hct MCV MCH MCHC RDW Std Deviation RDW Coeff of Roberto Plt Count MPV Immature Gran % (Auto) Neut % (Auto) Lymph % (Auto) [place] % (Auto) Eos % (Auto) Baso % (Auto) Neut # (Auto) Lymph # (Auto) [place] # (Auto) Eos # (Auto) Baso # (Auto) Immature Gran # (Auto) Sodium Potassium Chloride Carbon Dioxide Anion Gap BUN Creatinine Est Cr Clr Drug Dosing eGFR BUN/Creatinine Ratio Glucose POC Glucose 144 H 168 H Calcium Vitamin B1 PG Care Time/CCT Total # of Minutes Spent Total Time Spent with Patient: Total time spent is greater than 50% in coordination of care (as documented) at patient's floor/unit and/or counseling patient: Coding Level of Care Code 21470 SUB INP/OBS CARE 2/35MIN Diagnoses Urinary tract infection N39.0 Stage III chronic kidney disease N18.3 History of cardioembolic cerebrovascular accident (CVA) Z86.73 History of open sigmoidectomy Z98.890; Z90.49 Essential hypertension I10 Hypertension type: essential hypertension Acute metabolic encephalopathy G93.41 Left breast mass N63.20 Pseudogout involving multiple joints M11.89 (5) Hypertension Hypertension type: essential hypertension Qualified Code(s): I10 - Essential (primary) hypertension
--- NOTE | 2023-11-19 18:35 | Hospitalist Progress Note ---
Date of Service November 19, 2023 Assessment & Plan (1) Urinary tract infection: Plan: 2nd to ESBL E.coli NUMEROUS UTIs over the last 6-12 months - various pathogens including gram +'s and gram neg's just had ESBL e.coli in 10/2023 cont ertapenem IV - day #7 of such today ; plan 7 days of Rx then stop treatment I called microbiology and they are going to send out the culture for Fosfomycin testing/sensitivity last CT abd/pelvis - 03/2023 - no urinary tract pathology at minimum her chronic urinary incontinence is increasing her UTI risk asplenic state, advanced age, etc also contribute in the small chance she has colo-vesicular or colo-vaginal fistula I obtained CT a/p -- this showed ?fluid collection in the vagina obtained trans-abdominal pelvic u/s - fluid collection could not be seen 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 send to [facility] [place] Urology post-d/c for additional w/u as well HOLD oxybutinin as this can cause urinary retention which will increase her UTI risk oxybutinin can also cause confusion, constipation, etc. (2) Stage III chronic kidney disease: Plan: baseline CrCl 30-45 c/w stage 3b disease BMPs have been stable (3) History of cardioembolic cerebrovascular accident (CVA): Plan: MRI 2019 showed old, chronic left basal ganglia CVAs cont asa, plavix for secondary prevention (4) History of open sigmoidectomy: Plan: with colostomy creation - for perforated diverticulitis - year uncertain constipation improved with senna + TID miralax no obstruction or ileus seen on CT scan (5) Hypertension: Plan: cont metoprolol cont losartan (6) Acute metabolic encephalopathy: Plan: 2nd to UTI continues to improve each day cont supportive care reinforce sleep-wake cycle (blinds open during the day, closed at night; OOB to chair when able; etc) cont melatonin HS (7) Left breast mass: Plan: patient had a prior lumpectomy in the same breast last mammogram was 2022 - nothing suspicious seen b/l on that mammogram screen I found the following information on an old mammogram report -- this hard, large, calcified mass in the left breast is very concerning for recurrent breast ca will have her f/u with gynecology (or breast surgeon) for additional work-up if desired by patient (8) Pseudogout involving multiple joints: Plan: suspected L knee L ankle improved in 24 hours s/p prednisone day #3 of prednisone - will lower to 5mg/day to finish course since she has had such a good response x-ray of L knee with CPPD changes x-ray of L ankle without fracture but no CPPD changes seen either way both joints improved has had pseudogout flares during prior hospital stays Plan Diabetes Mellitus, Type 2 HOLD home metformin add lantus 5 units daily cont novolog Last A1C 6.3% (10/2023) CAD - history of prior apical NSTEMI, LAD JOHN x2, LCx JOHN, August 2017 Cont metoprolol succinate, asa, statin, ARB, plavix Hypothyroidism - TSH 3.7 cont synthroid VTE Prophylaxis: Heparin 5000 BID daughter extensively updated (Peyton Sanjay) at bedside this week updated by phone 11/18 cont PT, OT she will need higher level of care than [facility] at d/c - SNF referrals in place Admission and Anticipated Discharge Date Admission Date: November 14, 2023 Subjective no events was very awake and alert today in good spirits, smiling, laughing better appetite denies any pain LLE "I feel pretty good" she asks when she is getting out of the hospital Review of Systems 2 Review of Systems: cv - no cp, no orthopnea pulm - no dyspnea or cough GI - no abd pain or N/V Physical Exam 2 Physical Exam: gen - NAD, awake/alert, smiling; looks well today mouth - MMM, no thrush neck - no JVD heart - RRR, s1 s2, no murmur lungs - b/l basilar rales (fine,dry); no wheeze abd - soft NT ND BS+; ostomy left abdomen; parastomal hernia present ext - trace edema b/l legs and feet; pulses 2+ b/l skin - venous stasis changes b/l shins musculo - left knee synovitis - resolved; left ankle synovitis - resolved; NO pain with palpation or passive ROM of either joints; warmth of L knee resolved; with active ROM of both joints no pain today psych - much more awake/alert/oriented Results & Data Results & Data Vital Signs (Past 12 Hours) Vital Signs Temp Pulse Resp BP BP Pulse Ox O2 Del Method 11/19/23 16:22 36.2 C L 78 16 141/83 H 94 Room Air 11/19/23 12:51 74 95 Room Air 11/19/23 11:47 36.7 C 77 14 110/69 93 Room Air 11/19/23 07:42 36.4 C L 64 12 134/76 97 Room Air 11/19/23 07:35 Room Air Laboratory Results Laboratory Results - last 24 hr 11/18/23 11/19/23 11/19/23 20:30 07:54 11:27 POC Glucose 152 H 109 H 216 H 11/19/23 16:28 POC Glucose 278 H PG Care Time/CCT Total # of Minutes Spent Total Time Spent with Patient: Total time spent is greater than 50% in coordination of care (as documented) at patient's floor/unit and/or counseling patient: Coding Level of Care Code 67222 SUB INP/OBS CARE 2/35MIN Diagnoses Urinary tract infection N39.0 Stage III chronic kidney disease N18.3 History of cardioembolic cerebrovascular accident (CVA) Z86.73 History of open sigmoidectomy Z98.890; Z90.49 Essential hypertension I10 Hypertension type: essential hypertension Acute metabolic encephalopathy G93.41 Left breast mass N63.20 Pseudogout involving multiple joints M11.89 (5) Hypertension Hypertension type: essential hypertension Qualified Code(s): I10 - Essential (primary) hypertension
[2023-11-19] MEDS: LANTUS PER UNIT CHARGE SQ SCH (21:56)
[2023-11-20 07:23] VITALS: RESP 16
[2023-11-20] MEDS: predniSONE 5 MG TAB PO SCH (08:46)
[2023-11-20] MEDS: POLYETHYLENE (MIRALAX) 17 GM PACK PO SCH (09:08)
--- NOTE | 2023-11-20 20:05 | Hospitalist Progress Note ---
Date of Service November 20, 2023 Assessment & Plan (1) Abdominal pain: Plan: etiology? gastritis? other? c diff negative no evidence of incarcerated bowel on exam - and passing copious stool will start PPI and re-eval tomorrow (2) Urinary tract infection: Plan: 2nd to ESBL E.coli NUMEROUS UTIs over the last 6-12 months - various pathogens including gram +'s and gram neg's just had ESBL e.coli in 10/2023 completed 7 days of IV ertapenem - abx d/c I called microbiology and they are going to send out the culture for Fosfomycin testing/sensitivity last CT abd/pelvis - 03/2023 - no urinary tract pathology at minimum her chronic urinary incontinence is increasing her UTI risk asplenic state, advanced age, etc also contribute in the small chance she has colo-vesicular or colo-vaginal fistula I obtained CT a/p -- this showed ?fluid collection in the vagina obtained trans-abdominal pelvic u/s - fluid collection could not be seen I 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 send to [facility] [place] Urology post-d/c for additional w/u as well HOLD oxybutinin as this can cause urinary retention which will increase her UTI risk oxybutinin can also cause confusion, constipation, etc. (3) Stage III chronic kidney disease: Plan: baseline CrCl 30-45 c/w stage 3b disease BMPs have been stable (4) History of cardioembolic cerebrovascular accident (CVA): Plan: MRI 2019 showed old, chronic left basal ganglia CVAs cont asa, plavix for secondary prevention (5) History of open sigmoidectomy: Plan: with colostomy creation - for perforated diverticulitis - year uncertain constipation resolved now with copious stool - HOLD miralax cont senna for now no obstruction or ileus seen on CT scan (6) Hypertension: Plan: cont metoprolol cont losartan (7) Acute metabolic encephalopathy: Plan: 2nd to UTI continues to improve each day cont supportive care cont melatonin HS (8) Left breast mass: Plan: patient had a prior lumpectomy in the same breast last mammogram was 2022 - nothing suspicious seen b/l on that mammogram screen I found the following information on an old mammogram report -- this hard, large, calcified mass in the left breast is very concerning for recurrent breast ca will have her f/u with gynecology (or breast surgeon) for additional work-up if desired by patient (9) Pseudogout involving multiple joints: Plan: suspected L knee L ankle improved in 24 hours s/p prednisone day #4 of prednisone 5mg/day; plan 7 days in total then stop x-ray of L knee with CPPD changes x-ray of L ankle without fracture but no CPPD changes seen either way both joints improved has had pseudogout flares during prior hospital stays Plan Diabetes Mellitus, Type 2 HOLD home metformin; resume at d/c cont lantus 5 units daily cont novolog Last A1C 6.3% (10/2023) CAD - history of prior apical NSTEMI, LAD JOHN x2, LCx JOHN, August 2017 Cont metoprolol succinate, asa, statin, ARB, plavix Hypothyroidism - TSH 3.7 cont synthroid VTE Prophylaxis: Heparin 5000 BID daughter extensively updated (Peyton Grace) at bedside this week updated by phone 11/18 cont PT, OT she will need higher level of care than [facility] at d/c - SNF referrals in place SNF will have a bed tomorrow on 11/20 Admission and Anticipated Discharge Date Admission Date: November 14, 2023 Subjective patient was sleeping upon arrival easily woke up she smiled and said hello she complained of abdominal pain - vague - "all over" when asked when it started she said "I don't know" despite this complaint she ate 90% of her breakfast according to nursing flowsheets no vomiting by report putting out copious foul-smelling stool via her ostomy (bag emptied 3x's today already) Review of Systems 2 Review of Systems: CV - no orthopnea, no chest pain pulm - no dyspnea, no cough Physical Exam 2 Physical Exam: gen - NAD, awake/alert, looks good despite her c/o abd pain mouth - MMM, no thrush neck - no JVD heart - RRR, s1 s2, no murmur lungs - b/l basilar rales (fine,dry - no change); no wheeze abd - soft ND BS+; ostomy left abdomen; parastomal hernia present - reducible; foul-smelling stool in ostomy bag; tender epigastric region ext - trace edema b/l legs and feet; pulses 2+ b/l skin - venous stasis changes b/l shins musculo - left knee synovitis - resolved; left ankle synovitis - resolved; active ROM of both joints -- no pain psych - awake/alert Results & Data Results & Data Vital Signs (Past 12 Hours) Vital Signs Temp Pulse Resp BP Pulse Ox O2 Del Method 11/20/23 16:24 36.3 C L 66 16 152/84 H 97 Room Air Laboratory Results Laboratory Results - last 24 hr 11/19/23 11/20/23 11/20/23 20:57 07:32 11:37 POC Glucose 203 H 116 H 139 H Stl C. diff Tox B Gene 11/20/23 11/20/23 16:38 Unknown POC Glucose 175 H Stl C. diff Tox B Gene Negative Cdiff Gene PG Care Time/CCT Total # of Minutes Spent Total Time Spent with Patient: Total time spent is greater than 50% in coordination of care (as documented) at patient's floor/unit and/or counseling patient: Coding Level of Care Code 00390 SUB INP/OBS CARE 2/35MIN Diagnoses Abdominal pain R10.9 Urinary tract infection N39.0 Stage III chronic kidney disease N18.3 History of cardioembolic cerebrovascular accident (CVA) Z86.73 History of open sigmoidectomy Z98.890; Z90.49 Essential hypertension I10 Hypertension type: essential hypertension Acute metabolic encephalopathy G93.41 Left breast mass N63.20 Pseudogout involving multiple joints M11.89 (6) Hypertension Hypertension type: essential hypertension Qualified Code(s): I10 - Essential (primary) hypertension
[2023-11-20 20:23] VITALS: PULSE 64
[2023-11-20] MEDS: PANTOprazole 40 MG TAB PO STA (20:43)
[2023-11-21 07:31] VITALS: BP 140/72; TEMP 97.7; O2SAT 97
[2023-11-21] MEDS: PANTOprazole 40 MG TAB PO SCH (08:32)
--- NOTE | 2023-11-21 10:56 | Discharge Summary ---
Discharge Summary Date of Service November 21, 2023 Principal Dx & Hospital Course #1 = Principal Diagnosis (1) Urinary tract infection: 2nd to ESBL E.coli NUMEROUS UTIs over the last 6-12 months - various pathogens including gram +'s and gram neg's just had ESBL e.coli in 10/2023 completed treatment 7 days of IV ertapenem this admission called microbiology and they are going to send out the culture for Fosfomycin testing/sensitivity last CT abd/pelvis - 03/2023 - no urinary tract pathology at minimum her chronic urinary incontinence is increasing her UTI risk asplenic state, advanced age, etc also contribute in the small chance she has colo-vesicular or colo-vaginal fistula I obtained CT a/p -- this showed possible fluid collection in the vagina obtained trans-abdominal pelvic u/s - fluid collection could not be seen. etiology of the CT finding is uncertain. could the vaginal finding suggest she has a colo-vaginal fistula? discussed with on-call [facility] [employer] - she will need outpatient f/u and pelvic exam - referral made made referral to [facility] Urology as well stopped oxybutinin as this can cause urinary retention which will increase her UTI risk oxybutinin can also cause confusion, constipation, etc. (2) Abdominal pain: 11/19 c diff negative no evidence of incarcerated bowel on exam - and passing copious stool. continued to eat well. -resolved perhaps was gas -continue bowel regimen (3) Stage III chronic kidney disease: baseline CrCl 30-45 c/w stage 3b disease BMPs have been stable (4) History of cardioembolic cerebrovascular accident (CVA): MRI 2018 showed old, chronic left basal ganglia CVAs cont asa, plavix for secondary prevention (5) History of open sigmoidectomy: with colostomy creation - for perforated diverticulitis - year uncertain constipation resolved now with copious stool cont senna for now no obstruction or ileus seen on CT scan (6) Hypertension: cont metoprolol cont losartan (7) Acute metabolic encephalopathy: 2nd to UTI continues to improve each day cont supportive care cont melatonin HS (8) Left breast mass: patient had a prior lumpectomy in the same breast last mammogram was 2022 - nothing suspicious seen b/l on that mammogram screen I found the following information on an old mammogram report -- this hard, large, calcified mass in the left breast is very concerning for recurrent breast ca follow up with breast surgeon for additional work-up/treatment if desired by patient, which seems unlikely based on conversations here (9) Pseudogout involving multiple joints: suspected L knee L ankle improved in 24 hours s/p prednisone continue prednisone for two more days (7 days in total) then stop x-ray of L knee with CPPD changes x-ray of L ankle without fracture but no CPPD changes seen either way both joints improved has had pseudogout flares during prior hospital stays Plan Diabetes Mellitus, Type 2 resume metformin cont novolog Last A1C 6.3% (10/2023) CAD - history of prior apical NSTEMI, LAD JOHN x2, LCx JOHN, August 2017 Cont metoprolol succinate, asa, statin, ARB, plavix Hypothyroidism - TSH 3.7 cont synthroid Admission HPI Per Admitting Provider Christi Grace is a 88 year-old female who presents today for concern of dysuria and urinary frequency. Her medical history is significant for recurrent UTIs, urinary incontinence, diabetes mellitus, anxiety, prior CVA, CKD stage 3, GERD, colostomy due to diverticulitis. She resides at [facility]. Patient endorses several days of urinary frequency, urgency and is incontinent of urine at baseline. Patient denies fever/body aches/chills/shortness of breath/chest pain. Was treated for UTI (ESBL) in October with Macrobid, also had UTI in September which was treated with Keflex. Patient states she has been able to eat and drink normally, but does feel a bit more weak than usual. Endorses using a wheelchair at baseline. Denies vomiting or diarrhea, but endorses some nausea at present. ED Course: -UA, culture pending -1x Ertapenem -BMP, CBC Discharge Exam PHYSICAL EXAMINATION Last 24h vital signs reviewed, see documentation in flowsheet General: comfortable appearing, no distress, awake and alert HEENT: Normocephalic, atraumatic, pupils round and equal, sclerae anicteric, no conjunctival injection, moist mucus membranes Lungs: Normal respiratory effort. Clear to auscultation bilaterally. No RRW Heart: Regular rate and rhythm, no murmurs. No JVD Abdomen: Soft, nontender, nondistended. colostomy left lower quadrant with good stool output. Bowel sounds present. Extremities: Warm, dry, well-perfused. No extremity edema. Neuro: Alert and oriented x to hospital and situation though vague historian, face symmetric, moves 4 extremities well Psych: Normal affect and behavior Discharge Plan Discharge Items Patient Disposition: Transfer [facility]sp Fac Reason For Visit: UTI Discharge Diagnosis: ESBL E. coli UTI Activity: Resume your previous activity Non-emergency contact: Primary Care Provider Call non-emergency contact if: you have any medication questions and your symptoms worsen Follow-up/Referrals: Shilpa Parker MD [Primary Care Provider] - Diet: Carb Consistent or DM2 and Heart Healthy Addtl Attending Provider Instructions: Completed course of IV ertapenem in hospital for ESBL E. coli UTI PT and OT evaluate and treat Referrals made to gynecology and urology for follow up Further evaluation of L breast mass if patient/family desires Two more days of prednisone for pseudogout flare Blood glucose checks qAM until >48h off prednisone. A1c 6.3% in 10/2023 Routine colostomy care Vitamine B1 level pending - continue empiric replacement thiamine 200 mg bid until level results then adjust accordingly Pending Studies at Discharge: No Stand-Alone Forms: My [facility] Skilled Items Patient informed of condition?: Yes DNR: No Discharge Level of Care: Skilled Communicable Disease: No Discharge Prognosis: Improving Lines: None Urinary Catheter: No Medications and DC Order Prescriptions: New sennosides [Senokot] 8.6 mg Tablet 17.2 mg PO QAM Qty: 0 0RF prednisone 5 mg Tablet 5 mg PO QAM Qty: 0 0RF Rx Instructions: last dose 11/22 for pseudogout flare thiamine HCl (vitamin B1) 100 mg Tablet 200 mg PO BID Qty: 0 0RF Gemtesa 75 mg Tablet 75 mg PO QAM Qty: 0 0RF Continued (DME) Manual Wheelchair Device See Rx Instructions .Route Qty: 1 0RF Rx Instructions: As directed furosemide 40 mg tablet 40 mg PO DAILY PRN (Reason: edema) Qty: 90 3RF (DME) New Image Skin Barrier-Flange 2 3/4 " misc See Dose Instructions .ROUTE .MEDSUPPLY Qty: 30 11RF Dose Instruction: As directed Rx Instructions: Change every 3 days Dx:Z93.3;R32;Z86.73 (DME) New Image Drainable Lock N Rol 2 3/4 " misc See Dose Instructions .ROUTE .MEDSUPPLY Qty: 30 11RF Dose Instruction: As directed Rx Instructions: Change colostomy bags 1-2 times Daily atorvastatin 40 mg tablet 40 mg PO QAM Qty: 90 3RF levothyroxine 25 mcg tablet 25 mcg PO QAM Qty: 30 3RF metoprolol succinate 25 mg tablet extended release 24 hr 25 mg PO HS Qty: 30 3RF clopidogrel 75 mg tablet 75 mg PO QAM Qty: 30 5RF gabapentin 100 mg capsule 100 mg PO BID Qty: 60 5RF aspirin [Arin Low Dose Aspirin] 81 mg Tablet,Delayed Release (Dr/Ec) 81 mg PO QAM nitroglycerin 0.4 mg tablet, sublingual 0.4 mg sublingual DIRECTED PRN (Reason: Chest Pain) Centrum Silver 0.4-300-250 mg-mcg-mcg Tablet 1 tab PO QAM polyethylene glycol 3350 [Gavilax] 17 gram/dose powder 17 g PO QPM PRN (Reason: Constipation) Rx Instructions: USE 17 GRAMS BY MOUTH DAILY docusate sodium 100 mg tablet 100 mg PO BIDM amoxicillin 500 mg Capsule 2,000 mg PO DIRECTED PRN (Reason: 1 HR PRIOR TO DENTAL PROCEDURES) metformin 500 mg tablet extended release 24 hr 500 mg PO QAM escitalopram oxalate [Lexapro] 5 mg tablet 5 mg PO QAM losartan 50 mg tablet 50 mg PO QAM melatonin 1 mg Tablet 1 mg PO HS lorazepam 0.5 mg tablet 0.5 mg PO BID PRN (Reason: anxiety) Qty: 10 0RF Discontinued benzonatate 100 mg capsule 100 mg PO TID PRN (Reason: cough) Qty: 30 6RF hydrocodone-acetaminophen 5-325 mg tablet 1 tab PO BID MDD 3 GRAMS APAP/24 HOURS PRN (Reason: Pain) Qty: 60 0RF oxybutynin chloride 10 mg tablet extended release 24hr 10 mg PO QAM Qty: 28 10RF mirabegron [Myrbetriq] 50 mg tablet extended release 24 hr 50 mg PO QAM Qty: 28 10RF Discharge Orders: Discharge Order (Routine); Ordered 11/21/23 Ordered By: Melva Teixeira/Other Patient Handouts: Managing Type 2 Diabetes Admission Data Admit Date/Time: 11/14/23 18:32 Attending Provider: Melva Saavedra Admit Provider: Jonna Chacon Primary Care Provider: Shilpa Parker Other Providers: Kenneth Weaver; [place]; [facility]; [facility] Alanis at [place] Other Interventions: Discharge Summary Assessment (RN) Last Done: 11/21/23 11:47 Hospital Stay Data Consultations 11/13/23 10:15 ED Decision to Admit Stat Diagnostic Imagining Performed 11/15/23 10:25 CT Abd and Pelvis [CT abd pelvis oral and IV con] Routine 11/16/23 14:46 US pelvic complete Routine Pending Results Patient Have Any Pending Studies at Discharge: No Discharge Instructions Given to Patient (Per Discharging Provider) Completed course of IV ertapenem in hospital for ESBL E. coli UTI PT and OT evaluate and treat Referrals made to gynecology and urology for follow up Further evaluation of L breast mass if patient/family desires Two more days of prednisone for pseudogout flare Blood glucose checks qAM until >48h off prednisone. A1c 6.3% in 10/2023 Routine colostomy care Vitamine B1 level pending - continue empiric replacement thiamine 200 mg bid until level results then adjust accordingly Total Time Total Time Spent Total Time Spent (In Minutes): I personally spent: 40 minutes today on clinical care activities including: reviewing chart notes and vital signs discussion with patient centered care specialist examining and counseling the patient writing orders writing prescriptions, discharge instructions documentation Coding Level of Care Code 73404 INP/OBS DISCH >30 MIN Diagnoses Urinary tract infection N39.0 Abdominal pain R10.9 Stage III chronic kidney disease N18.3 History of cardioembolic cerebrovascular accident (CVA) Z86.73 History of open sigmoidectomy Z98.890; Z90.49 Essential hypertension I10 Hypertension type: essential hypertension Acute metabolic encephalopathy G93.41 Left breast mass N63.20 Pseudogout involving multiple joints M11.89
== END 2023-11-21 12:54 | DRG 689 ==
LOC: EDINP 08:11 → ED 08:11 → SUATTDRO 11:20 → 3E 16:50 → SUATTDRO 11-14 18:32